=== PATIENT | male | born 1935 | race Caucasian/White ===

== ENCOUNTER 2024-03-07 06:34 | Outpatient (REF) | payer MEDICARE, SELFPAY ==
[2024-03-07 06:39] LABS: MANUAL DIFF FLAG NO
--- OUTSIDE RECORDS SUMMARY | 2024-03-07 06:42 | XMS_ITS | Encounter Summary ---
Author Name [facility] Organization [facility] Address [address] [place] [id number] Care Team Providers Care Machine I Cutter Name Role Phone RAMONA HUNTER Primary Care Provider Unav ailable FABI BLEDSOE Unavailable Unavailable DON DIAZ Unavailable Unavailable CHAPUT, JOSHUA Unavailable Unavailable RAIVEL, KATIANA Unavailable Unavailable FEILEN, AYAKA Unavailable Unavailable ÁNGEL, SAUL Unavailable Unavailable FRANK PIZANO Unavailable Unavailable Insurance Providers: All historical and current Section Date Range: From patient's date of to the date document was created. This section includes the names of all active insurance providers for the patient. Insurance Provider Type of Coverage Plan Name Start of Policy Coverage End of Policy Coverage Group Number Member ID Insurance Provider's Telephone Number Policy Solano's Name Patient's Relationship to Policy Solano MEDICARE (WNR) MEDICARE () PART B Feb 27, 2017 PART B [id number] REJI,GUSTAVO NRY PATIENT MEDICARE (WNR) MEDICARE (M) PART B Feb 27, 2017 PART B [id number] REJI,GUSTAVO NRY PATIENT MEDICARE (WNR) MEDICARE () PART A Feb 27, 2001 PART A [id number] REJI,GUSTAVO NRY PATIENT MEDICARE (WNR) MEDICARE (M) PART A Feb 27, 2001 PART A [id number] GUSTAVO MENDOZA PATIENT Selected Encounter This section includes the information on record at [place] for the Encounter. Date/Time Encounter Type Encounter Description Reason Provider Source Oct 04, 2023 04:15 PM FUNDUS PHOTOGRAPHY W/I&R OPTOMETRY ICD-10-CM H54.62 Unqualified visual loss, left eye, normal vision right eye DIAZ VALDEZ IHE Encounter Template Text not used by [facility] Assessments - Encounter Diagnoses This section includes the primary and secondary diagnoses documented for the Encounter. Date/Time Primary/Secondary Diagnosis Diagnosis Name Provider Source Dec 06, 2023 09:27 AM PRIMARY Unqualified visual loss, left eye, normal vision right eye ADALID VALDEZ [facility] Plan of Treatment: Future Appointments (+ 6 months) and Future Tests (+/- 45 days) The Plan of Treatment section includes future care activities for the patient from all [place] treatmentfacilities. This section includes future appointments and future orders which are active, pending or scheduled. Future Appointments This section includes appointments that were scheduled to occur 6 months from the date of the Encounter, up to a maximum of 20 appointments. The data comes from all [place] treatment facilities. Appointment Date/Time Appointment Type Appointme nt Facility Name Nov 28, 2023 08:00 AM AMBULATORY - MEDICINE [facility] Dec 08, 2023 08:00 AM AMBULATORY - MEDICINE [facility] Dec 08, 2023 03:00 PM AMBULATORY - REHAB MEDICIN E [facility] Jan 11, 2024 11:25 AM AMBULATORY - MEDICINE [facility] Vital Signs: All taken on the encounter date This section contains inpatient and outpatient Vital Signs collected on the date of the Encounter. Date/Time Temperature Pulse Blood Pressure Respiratory Rate SP02 Pain Height Weight Body Mass Index Source Oct 04, 2023 02:53 PM 97.2 81 124/78 16 98 0 184.5 25 [facility] Social History: Smoking Status (Most current) and Tobacco Use (All prior to encounter date) This section includes the most current, and the historical, smoking and tobacco- related health factors from the [facility] facility where the Encounter took place. Current Smoking Status This section includes the most current smoking, or tobacco-related health factor, from the [place] facility where the Encounter took place. Date/Time Current Smoking Status Comment Frederick varenr Dec 14, 2022 12:15 PM VA-TOBACCO NEVER USED [facility] Tobacco Use History This section includes a history of the smoking, or tobacco-related health factors, that were collected on or before the date of the Encounter. The data comes from the [place] facility where the Encounter took place. Date/Time Smoking Status/Tobacco Use Comment F acility Jan 10, 2019 10:51 AM VA-TOBACCO NEVER USED [facility] Advance Directives: All historical and current Section Date Range: From patient's date of to the date document was created. This section includes ALL of a patient's completed or amended [place] Advance and Rescinded Directives. The entries below indicate that a directive exists for the patient, but an actual copy is not included with this document. The data comes from all [place] facilities. Date Advance Directives Provider Source Aug 14, 2020 ADVANCE DIRECTIVE CRISTOPHER BENITEZ Encounter Notes: All associated encounter notes This section contains the clinical notes associated to the Encounter. Date/Time Encounter Note(s) Provider Source Oct 04, 2023 04:05 PM OPTOMETRY CONSULT: LOCAL TITLE: CONSULT REPORT/OPTOMETRY FUNDUS PHOTO STANDARD TITLE: OPTOMETRY CONSULT DATE OF NOTE: OCT 04, 2023@16:05 ENTRY DATE: OCT 04, 2023@16:05:42 AUTHOR: NICOLE BAPTISTE COSIGNER: ADALID VALDEZ URGENCY: STATUS: COMPLETED Fundus photo report: Fundus photos reviewed for patient with unspecified vision loss OS OD: optic disc shows normal cupping with distinct margins and healthy rim tissue. The vasculature is of normal caliber. Few drusen at macula. OS: optic disc shows normal cupping with distinct margins and healthy rim tissue. The vasculature is of normal caliber. Few drusen at macula. A/P: Unspecified vision loss OS - no ocular pathology observed on today's exam - Pt and ed on today's findings. Blurry vision likely d/t uncorrected refractive error and dryness. Pt has dementia and was unable to provide reliable responses on refraction. No change in rx OD, rx'd retinoscopy findings OS and ordered updated pair of trifocals. Advised to continue use of ATs 2-3x per day. - Fundus photos taken for documentation. Monitor in 6 mos. /lalo/ NICOLE BAPTISTE OPTOMETRY STUDENT Signed: 10/04/2023 16:53 /lalo/ ADALID VALDEZ OD STAFF CVIR TECH Cosigned: 10/04/2023 16:54 NICOLE BAPTISTE [place] [facility]
--- OUTSIDE RECORDS SUMMARY | 2024-03-07 06:42 | XMS_ITS ---
Author Name [facility] [place] [facility] [place] Address [address] [place] [address] Care Team Providers Care Filler Shredder Helper Name Role Phone RAMONA HUNTER Primary Care Provider Unav ailable LADI, FABI Unavailable Unavailable JOE, DON Unavailable Unavailable CHAPUT, JOSHUA Unavailable Unavailable RAIVEL, KATIANA Unavailable Unavailable FEILEN, AYAKA Unavailable Unavailable SAUL NEAL Unavailable Unavailable FRANK PIZANO Unavailable Unavailable Insurance [...] Relationship to Policy Solano MEDICARE (WNR) MEDICARE (M) PART B Feb 27, 2017 PART B [id number] [phone] REJI,GUSTAVO NRY PATIENT MEDICARE (WNR) MEDICARE (M) PART B Feb 27, 2017 PART B [id number] REJI,GUSTAVO NRY PATIENT MEDICARE (WNR) MEDICARE (M) PART A Feb 27, 2001 PART A [id number] WILGUS,HE NRY PATIENT MEDICARE (WNR) MEDICARE (M) PART A Feb 27, 2001 PART A [id number] GUSTAVO MENDOZA PATIENT Selected Encounter This section includes the information on record at [place] for the Encounter. Date/Time Encounter Type Encounter Description Reason Pro vider Source Nov 29, 2023 11:30 AM Outpatient Encounter [facility] PHYSIC EXTND(PIPE COVERING MOLDER,HAND MOUNTER,PA) IHE Encounter Template Text not used by [place] Plan of Treatment: Future Appointments (+ 6 months) and Future Tests (+/- 45 days) The Plan of Treatment section includes future care activities for the patient from all [place] [facility]. This section includes future appointments and future orders which are active, pending or scheduled. Future Appointments This section includes appointments that were scheduled to occur 6 months from the date of the Encounter, up to a maximum of 20 appointments. The data comes from all [facility]. Appointment Date/Time Appointment Type Appointme nt Facility Name Dec 08, 2023 08:00 AM AMBULATORY - MEDICINE [facility] Dec 08, 2023 03:00 PM [facility] Jan 11, 2024 11:25 AM AMBULATORY - MEDICINE [facility] Apr 24, 2024 03:00 PM [facility] May 15, 2024 01:30 PM AMBULATORY - MEDICINE [facility] Active, Pending, and Scheduled Orders This section includes a listing of several types of active, pending, and scheduled orders, including clinic medications orders, diagnostic test orders, procedure orders and consult orders; where the start date of the order is 45 days before the date of the Encounter or 45 days after the date of theEncounter. The data comes from all [facility]. Test Date/Time Test Type Test Details Facility Name Dec 21, 2023 12:00 AM Laboratory - Chemi stry Order BASIC METABOLIC PANEL (non-fasting) BLOOD (SST-SERUM) [facility] Social History: Smoking Status (Most current) and Tobacco Use (All prior to encounter date) This section includes the most current, and the historical, smoking and tobacco- related health factors from the [place] facility where the Encounter took place. Current Smoking Status This section includes the most current smoking, or tobacco-related health factor, from the [place] facility where the Encounter took place. Date/Time Current Smoking Status Comment Frederick varner Dec 14, 2022 12:15 PM VA-TOBACCO NEVER USED [facility] Tobacco Use History This section includes a history of the smoking, or tobacco-related health factors, that were collected on or before the date of the Encounter. The data comes from the [place] facility where the Encounter took place. Date/Time Smoking Status/Tobacco Use Comment [facility]ility Jan 10, 2019 10:51 AM VA-TOBACCO NEVER USED [facility] Advance Directives: All historical and current Section Date Range: From patient's date of to the date document was created. This section includes ALL of a patient's completed or amended [place] Advance and Rescinded Directives. The entries below indicate that a directive exists for the patient, but an actual copy is not included with this document. The data comes from all [place] facilities. Date Advance Directives Provider Source Aug 14, 2020 ADVANCE DIRECTIVE CRISTOPHER BENITEZ Encounter Notes: All associated encounter notes This section contains the clinical notes associated to the Encounter. Date/Time Encounter Note(s) Provider Source Nov 29, 2023 11:30 AM ADMINISTRATIVE NOT E: LOCAL TITLE: FAX/MAIL RECEIVED STANDARD TITLE: ADMINISTRATIVE NOTE DATE OF NOTE: NOV 29, 2023@11:30 ENTRY DATE: NOV 29, 2023@11:30:04 AUTHOR: JOSHUA MOREJON COSIGNER: URGENCY: STATUS: COMPLETED Document Received On: Nov Document Type: OFFICE NOTE Date of Service: Aug Facility and or Provider: [facility] Contact Information: PCP of Record: RAMONA HUNTER Next visit with PCP: 12/08/2023 15:00 CWM NO AUDIO EVAL E 05/15/2024 13:30 CWM/NO/OTOLARYNGOLOGY 05/15/2024 14:30 NHM/OPTOMETRY/[facility] May keep copies of this document for up to 14 days and send the original for scanning. /lalo/ JOSHUA MOREJON CHIEF OPERATIONS OFFICER DEONNA/GIOVANNY Signed: 11/29/2023 11:33 Receipt Acknowledged By: 11/29/2023 15:24 /lalo/ JODI SUTTON RN GIOVANNY framing manager 11/29/2023 11:42 /es/ RAMONA HUNTER RN,MSN,CONTAINER REPAIRER-C [facility] NURSE PRACTITIONER JOSHUA MOREJON [facility]
--- OUTSIDE RECORDS SUMMARY | 2024-03-07 06:42 | XMS_ITS ---
Author Name [facility] Address [address] [place] [id number] Care Team Providers Care Food Service Sales Representatives Name Role Phone RAMONA HUNTER Primary Care Provider Unav ailable FABI BLEDSOE Unavailable Unavailable DON DIAZ Unavailable Unavailable CHAPUT, JOSHUA Unavailable Unavailable RAIVEL, KATIANA Unavailable Unavailable FEILEN, AYAKA Unavailable Unavailable ÁNGEL, SAUL Unavailable Unavailable HARINDER, FRANK Unavailable Unavailable Insurance Providers: All historical and [...] PART B Feb 27, 2017 PART B [id number] WILGUS,HE NRY PATIENT MEDICARE (WNR) MEDICARE (M) PART B Feb 27, 2017 PART B [id number] WILGUS,HE NRY PATIENT MEDICARE (WNR) MEDICARE (M) PART A Feb 27, 2001 PART A [id number] [phone] WILGUS,HE NRY PATIENT MEDICARE (WNR) MEDICARE (M) PART A Feb 27, 2001 PART A [id number] [phone] WILGUS,HE NRY PATIENT Selected Encounter This section includes the information on record at [place] for the Encounter. Date/Time Encounter Type Encounter Description Reason Provider Source Oct 04, 2023 02:00 PM HEARING AID FITTING/CHECKING AUDIOLOGY ICD-10-CM H61.21 Impacted cerumen, right ear NAZ SMITH Yg Encounter Template Text not used by [place] Assessments - Encounter Diagnoses This section includes the primary and secondary diagnoses documented for the Encounter. Date/Time Primary/Secondary Diagnosis Diagnosis Name Provider Source Oct 04, 2023 05:01 PM PRIMARY Impacted cerumen, right ear NAZ SMITH [facility] Oct 04, 2023 05:01 PM SECONDARY Encounter for fitting and adjustment of hearing aid NAZ SMITH [facility] Plan of Treatment: Future Appointments (+ 6 months) and Future Tests (+/- 45 days) The Plan of Treatment section includes future care activities for the patient from all [place] treatmentfacilities. This section includes future appointments and future orders which are active, pending or scheduled. Future Appointments This section includes appointments that were scheduled to occur 6 months from the date of the Encounter, up to a maximum of 20 appointments. The data comes from all [place] treatment facilities. Appointment Date/Time Appointment Type Appointme nt Facility Name Nov 28, 2023 08:00 AM AMBULATORY - MEDICINE [facility] Dec 08, 2023 08:00 AM AM[facility]ULATORY - MEDICINE [facility] Dec 08, 2023 03:00 PM AMBULATORY - REHAB MEDICIN E [facility] Jan 11, 2024 11:25 AM AMBULATORY - MEDICINE [facility] Vital Signs: All taken on the encounter date This section contains inpatient and outpatient Vital Signs collected on the date of the Encounter. Date/Time Temperature Pulse Blood Pressure Respiratory Rate SP02 Pain Height Weight Body Mass Index Source Oct 04, 2023 02:53 PM 97.2 81 124/78 16 98 0 184.5 25 [facility] Social History: Smoking Status (Most current) and Tobacco Use (All prior to encounter date) This section includes the most current, and the historical, smoking and tobacco- related health factors from the [place] facility where the Encounter took place. Current Smoking Status This section includes the most current smoking, or tobacco-related health factor, from the [place] facility where the Encounter took place. Date/Time Current Smoking Status Comment Facil ity Dec 14, 2022 12:15 PM VA-TOBACCO NEVER USED [facility] Tobacco Use History This section includes a history of the smoking, or tobacco-related health factors, that were collected on or before the date of the Encounter. The data comes from the [place] facility where the Encounter took place. Date/Time Smoking Status/Tobacco Use Comment F acility Jan 10, 2019 10:51 AM VA-TOBACCO NEVER USED [facility] Advance Directives: All historical and current Section Date Range: From patient's date of to the date document was created. This section includes ALL of a patient's completed or amended [place] Advance and Rescinded Directives. The entries below indicate that a directive exists for the patient, but an actual copy is not included with this document. The data comes from all [place] facilities. Date Advance Directives Provider Source Aug 14, 2020 ADVANCE DIRECTIVE CRISTOPHER BENITEZ Encounter Notes: All associated encounter notes This section contains the clinical notes associated to the Encounter. Date/Time Encounter Note(s) Provider Source Oct 04, 2023 07:32 AM AUDIOLOGY E & M NOTE: LOCAL TITLE: AUDIOLOGY CLINIC STANDARD TITLE: AUDIOLOGY E & M NOTE DATE OF NOTE: OCT 04, 2023@07:32 ENTRY DATE: OCT 04, 2023@07:32:52 AUTHOR: NAZ SMITH COSIGNER: URGENCY: STATUS: COMPLETED AUDIOLOGY CLINIC Has ADDENDA Dx CODE: H61.21-Impacted cerumen, right ear APPOINTMENT TYPE: Hearing Re-Evaluation and Hearing Aid Selection BACKGROUND/HISTORY: Ramses was seen 10/04/23 for a hearing re-evaluation and hearing aid selection appointment, accompanied by his caregiver Lakshmi who assists with case history. Ramses has a same day ENT appointment because a growth was visualized in his right ear. They have been using drops for several days now. Lakshmi reports ramses recently has been in and out of the hospital and had COVID. His last hearing evaluation was a C&P on 05/23/23. 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 He was fit with Ken Ajay Edge AI BTEs on 08/24/20. He is eligible for new [facility] aids through [facility] due to the age of the current devices. ASSESMENT: Results of today's testing are as follows: Otoscopy revealed occluding yellowish debris in the right ear, and partially occluding cerumen in the left ear. Could not visualize TMs. Flat type B tympanograms obtained bilaterally. Further testing was still completed as is scheduled to see ENT later today. 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 *Could not mask or complete word testing due to comprehension limitations. CLINICAL IMPRESSIONS: No significant changes were found in the right ear when compared to the 05/23/23 audiological evaluation. A significant decrease in the left ear noted today. Recommending follow up with ENT as previously scheduled and return for a same day hearing test and fitting once cleared. HEARING AID CHECK: Both hearing aids were cleaned and checked, and found to be in good working order. Microphone covers and thin tubes were replaced. Hearing aids were connected to Nexgence and a firmware update was completed. HEARING AID SELECTION: Different hearing aid options were discussed with Lakshmi. Agreed to order hearing aids similar as possible to 's current aids. Ken Evolv AI 13 BTEs were selected and ordered in ROES. Impressions on file will be used for canal lock earmolds due to impacted cerumen. EDUCATION/COUNSELING: The patient was counseled re: today's hearing test results. He demonstrated satisfactory understanding of the education and plan, and was given the opportunity to ask questions throughout today's visit. PLAN: 1. When new hearing aids arrive, can be scheduled for a 2 hour retest/fit appointment. 2. Hearing re-evaluation in 3-5 years, or sooner if change in hearing occurs. * Patient Education Education provided on the following topics: Hearing test results Education provided to: P Response to Education: VU Aguilar Patient P Family F Significant Other SO Verbalizes Understanding VU Returns Demonstration RD Performs Independently PI Lacks Comprehension LC Refused Education RE Not Applicable NA * /lalo/ NAZ SMITH STAFF ELECTRICAL CONTACTS ADJUSTER Signed: 10/05/2023 07:49 10/19/2023 ADDENDUM STATUS: COMPLETED Hearing aids received and certified, left voicemail for [place] to contact the clinic. Need to schedule 2 hour retest/fit appointment. Hearing aids placed in black cabinet. /lalo/ FRANK LAWRENCE Audiology Health Rack Worker Signed: 10/19/2023 08:16 11/02/2023 ADDENDUM STATUS: COMPLETED called to schedule a 2 hour appt. lft with direct clinic mary ann number /lalo/ FABI MONTGOMERY LEAD SOLE SKIVER Signed: 11/02/2023 11:29 NAZ SMITH [facility]
--- OUTSIDE RECORDS SUMMARY | 2024-03-07 06:42 | XMS_ITS | Encounter Summary ---
Author Name [facility] Address [address] [place] [id number] Care Team Providers Care Client Resolution Specialist Name Role Phone SARAY HUNTER Primary Care Provider Unav ailable LADI, FABI Unavailable Unavailable DON DIAZ Unavailable Unavailable CHAPUT, [...] PART B Feb 27, 2017 PART B [id number] WILGUS,HE NRY PATIENT MEDICARE (WNR) MEDICARE (M) PART B Feb 27, 2017 PART B [id number] WILGUS,HE NRY PATIENT MEDICARE (WNR) MEDICARE (M) PART A Feb 27, 2001 PART A [id number] WILGUS,HE NRY PATIENT MEDICARE (WNR) MEDICARE (M) PART A Feb 27, 2001 PART A [id number] [phone] WILGUS,HE NRY PATIENT Selected Encounter This section includes the information on record at [place] for the Encounter. Date/Time Encounter Type Encounter Description Reason Provider Source Oct 05, 2023 10:06 AM FIT SPECTACLES BIFOCAL OPTOMETRY ICD-10-CM Z46.0 Encounter for fit/adjst of spectacles and contact lenses ADALID VALDEZ IHYg Encounter Template Text not used by [facility] Assessments - Encounter Diagnoses This section includes the primary and secondary diagnoses documented for the Encounter. Date/Time Primary/Secondary Diagnosis Diagnosis Name Provider Source Oct 05, 2023 10:06 AM PRIMARY Encounter for fit/adjst of spectacles and contact lenses SARAY DHALIWAL [facility] Plan of Treatment: Future Appointments (+ 6 months) and Future Tests (+/- 45 days) The Plan of Treatment section includes future care activities for the patient from all [place] treatmentfacilities. This section includes future appointments and future orders which are active, pending or scheduled. Future Appointments This section includes appointments that were scheduled to occur 6 months from the date of the Encounter, up to a maximum of 20 appointments. The data comes from all [place] treatment facilities. Appointment Date/Time Appointment Type Appointme nt Facility Name Nov 28, 2023 08:00 AM AMBULATORY - MEDICINE [facility] Dec 08, 2023 08:00 AM AMBULATORY - MEDICINE [facility] Dec 08, 2023 03:00 PM AMBULATORY - REHAB MEDICIN E [facility] Jan 11, 2024 11:25 AM AMBULATORY - MEDICINE [facility] Social History: Smoking Status (Most current) and Tobacco Use (All prior to encounter date) This section includes the most current, and the historical, smoking and tobacco- related health factors from the [place] facility where the Encounter took place. Current Smoking Status This section includes the most current smoking, or tobacco-related health factor, from the [place] facility where the Encounter took place. Date/Time Current Smoking Status Phill Frederick telly Dec 14, 2022 12:15 PM VA-TOBACCO NEVER USED [facility] Tobacco Use History This section includes a history of the smoking, or tobacco-related health factors, that were collected on or before the date of the Encounter. The data comes from the [place] facility where the Encounter took place. Date/Time Smoking Status/Tobacco Use Comment [facility] Jan 10, 2019 10:51 AM VA-TOBACCO NEVER USED [place] [facility] Advance Directives: All historical and current Section Date Range: From patient's date of to the date document was created. This section includes ALL of a patient's completed or amended [place] Advance and Rescinded Directives. The entries below indicate that a directive exists for the patient, but an actual copy is not included with this document. The data comes from all [place] facilities. Date Advance Directives Provider Source Aug 14, 2020 ADVANCE DIRECTIVE ELICRISTOPHERPATRICIA MORGAN LD Encounter Notes: All associated encounter notes This section contains the clinical notes associated to the Encounter. Date/Time Encounter Note(s) Provider Source Oct 05, 2023 10:06 AM OPTOMETRY NOTE: LOCAL TITLE: OPTOMETRY NOTE STANDARD TITLE: OPTOMETRY NOTE DATE OF NOTE: OCT 05, 2023@10:06 ENTRY DATE: OCT 05, 2023@10:06:12 AUTHOR: ANNABEL PERDOMO EXP COSIGNER: URGENCY: STATUS: COMPLETED OPTOMETRY NOTE Has ADDENDA The quote provided below is for informational purposes only. Please verify prior to the creation of a purchase order. DILIA MENDOZA 1145 RX INFORMATION OD +0.75 -1.25 X115 Add:+2.75 Pzm:0.00 Dir: Prz2:0.00 Dir2: OS -0.50 -1.75 X60 Add:+2.75 Pzm:0.00 Dir: Prz2:0.00 Dir2: FITTING INFORMATION FPD:64 NPD:61 [place]:R: L: SEG HT:R:24 L:24 Tint:None Shade:None VA Billable Items FRAME: PALM GOLD [id number] Right Lens: POLY TRIFOCAL 7X28 PHOTOCHROMIC KHAN 1.586 POLY Left Lens: POLY TRIFOCAL 7X28 PHOTOCHROMIC KHAN 1.586 [place] /lalo/ ANNABEL PERDOMO INSURANCE SALES PROFESSIONAL Signed: 10/05/2023 10:06 Receipt Acknowledged By: 10/05/2023 10:22 /lalo/ Saray Dhaliwal [facility] Specialist 10/05/2023 ADDENDUM STATUS: COMPLETED PDS [employer] Farmworker fit 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 OPT HT entered consult(s) as requested for provider signature. /lalo/ Saray Dhaliwal [facility] Specialist Signed: 10/05/2023 10:23 ANNABEL PERDOMO [facility]
--- OUTSIDE RECORDS SUMMARY | 2024-03-07 06:42 | XMS_ITS | Encounter Summary ---
Author Name [facility] [place] Organization [facility] [place] Address [address] [place] [id number] Care Team Providers Care Director Of Early Childhood Name Role Phone RAMONA HUNTER Primary Care [...] PART B Feb 27, 2017 PART B [id number] REJI,GUSTAVO NRY PATIENT MEDICARE (WNR) MEDICARE (M) PART B Feb 27, 2017 PART B [id number] GUSTAVO MENDOZA NRY PATIENT MEDICARE (WNR) MEDICARE () PART A Feb 27, 2001 PART A [id number] REJI,GUSTAVO NRY PATIENT MEDICARE (WNR) MEDICARE (M) PART A Feb 27, 2001 PART A [id number] GUSTAVO MENDOZA PATIENT Selected Encounter This section includes the information on record at [place] for the Encounter. Date/Time Encounter Type Encounter Description Reason Provider Source Nov 28, 2023 04:15 PM PRO PHONE CALL 5-10 MIN TELEPHONE [facility] ICD-10-CM I48.91 Unspecified atrial fibrillation DAVID AugustineJODI Yg Encounter Template Text not used by [place] Assessments - Encounter Diagnoses This section includes the primary and secondary diagnoses documented for the Encounter. Date/Time Primary/Secondary Diagnosis Diagnosis Name Provider Source Nov 28, 2023 04:15 PM PRIMARY Unspecified atrial fibrillation JODI ZELAYA [facility] Plan of Treatment: Future Appointments (+ 6 months) and Future Tests (+/- 45 days) The Plan of Treatment section includes future care activities for the patient from all [place] treatmentfacilities. This section includes future appointments and future orders which are active, pending or scheduled. Future Appointments This section includes appointments that were scheduled to occur 6 months from the date of the Encounter, up to a maximum of 20 appointments. The data comes from all [place] treatment [facility]. Appointment Date/Time Appointment Type Appointme nt Facility Name Dec 08, 2023 08:00 AM AMBULATORY - MEDICINE [facility] Dec 08, 2023 03:00 PM AMBULATORY - REHAB MEDICIN E [facility] Jan 11, 2024 11:25 AM [facility] Apr 24, 2024 03:00 PM [facility] May 15, 2024 01:30 PM AMBULATORY - MEDICINE [facility] Active, Pending, and Scheduled Orders This section includes a listing of several types of active, pending, and scheduled orders, including clinic medications orders, diagnostic test orders, procedure orders and consult orders; where the start date of the order is 45 days before the date of the Encounter or 45 days after the date of theEncounter. The data comes from all [facility]. Test Date/Time Test Type Test Details Facility Name Dec 21, 2023 12:00 AM Laboratory - Chemi stry Order BASIC METABOLIC PANEL (non-fasting) BLOOD (SST-SERUM) SP [facility] Social History: Smoking Status (Most current) and Tobacco Use (All prior to encounter date) This section includes the most current, and the historical, smoking and tobacco- related health factors from the [place] facility where the Encounter took place. Current Smoking Status This section includes the most current smoking, or tobacco-related health factor, from the [place] facility where the Encounter took place. Date/Time Current Smoking Status Comment Frederick ity Dec 14, 2022 12:15 PM VA-TOBACCO NEVER USED [facility] Tobacco Use History This section includes a history of the smoking, or tobacco-related health factors, that were collected on or before the date of the Encounter. The data comes from the [place] facility where the Encounter took place. Date/Time Smoking Status/Tobacco Use Comment F acility Jan 10, 2019 10:51 AM VA-TOBACCO NEVER USED [facility] Advance Directives: All historical and current Section Date Range: From patient's date of to the date document was created. This section includes ALL of a patient's completed or amended [place] Advance and Rescinded Directives. The entries below indicate that a directive exists for the patient, but an actual copy is not included with this document. The data comes from all [place] facilities. Date Advance Directives Provider Source Aug 14, 2020 ADVANCE DIRECTIVE CRISTOPHER BENITEZ Encounter Notes: All associated encounter notes This section contains the clinical notes associated to the Encounter. Date/Time Encounter Note(s) Provider Source Nov 28, 2023 04:16 PM [facility] NOTE: LOCAL TITLE: HB TELEPHONE NOTE STANDARD TITLE: HB NOTE DATE OF NOTE: NOV 28, 2023@16:16 ENTRY DATE: NOV 28, 2023@16:16:32 AUTHOR: RAÚL SUTTON COSIGNER: URGENCY: STATUS: COMPLETED Duration of call: 5 min Called received and spoke with ANDREA Lakshmi who reported [place] was taken off Digoxin about a week ago. Cardiology did an EKG which was reported to be WNL per caregiver. will be placed on heart monitor for two weeks and has follow up with cardiology again in December. Per Caregiver [place] is doing better now that he is off of Digoxin . Cardiology visit summary requested. Requesting renewal of the following if appropriate. OUTPT ZINC OXIDE 20% OINT (Status = Active) APPLY THIN LAYER TOPICALLY ONCE DAILY NEEDED FOR SKIN IRRITATION Rx# [id number] Last Released: 11/16/23 Qty/Days Supply: 454/30 Rx Expiration Date: 10/03/24 Refills Remainin Indication: FOR SKIN IRRITATION /es/ JODI SUTTON RN HB speech pathologist Signed: 11/28/2023 16:32 Receipt Acknowledged By: 11/29/2023 08:50 /lalo/ RAMONA HUNTER RN,MSN,SWEDGER-C [facility] NURSE PRACTITIONER RAÚL SUTTON [facility]
--- OUTSIDE RECORDS SUMMARY | 2024-03-07 06:42 | XMS_ITS | Encounter Summary ---
Author Name [facility] [place] [place] Organization [facility] [place] [place] Address [address] [place] [id number] Care Team Providers Care Colors Custodian Name Role Phone RAMONA HUNTER Primary Care Provider Unav ailable FABI BLEDSOE Unavailable Unavailable DON DIAZ Unavailable Unavailable CHAPUT, JOSHUA Unavailable Unavailable RARADHAL, KATIANA Unavailable Unavailable FEILEN, AYAKA Unavailable Unavailable [...] PART B Feb 27, 2017 PART B [id number] ARONGUS,GUSTAVO NRY PATIENT MEDICARE (WNR) MEDICARE (M) PART B Feb 27, 2017 PART B [id number] WILGUS,GUSTAVO NRY PATIENT MEDICARE (WNR) MEDICARE (M) PART A Feb 27, 2001 PART A [id number] WILGUS,HE NRY PATIENT MEDICARE (WNR) MEDICARE (M) PART A Feb 27, 2001 PART A [id number] [phone] WILGUS,HE NRY PATIENT Selected Encounter This section includes the information on record at [place] for the Encounter. Date/Time Encounter Type Encounter Description Reason Provider Source Nov 01, 2023 11:45 AM MEASURE BLOOD OXYGEN LEVEL [facility] Nursing (RN / LP) ICD-10-CM G30.9 Alzheimer's disease, unspecified JODI SUTTON Yg Encounter Template Text not used by [place] Assessments - Encounter Diagnoses This section includes the primary and secondary diagnoses documented for the Encounter. Date/Time Primary/Secondary Diagnosis Diagnosis Name Provider Source Nov 06, 2023 04:53 PM PRIMARY Alzheimer's disease, unspecified JODI ZELAYA [facility] [place] [facility] Nov 06, 2023 04:53 PM SECONDARY Dem in oth dis classd elswhr,unsp sev,w/o beh/psych/mood/an[facility] [place] [facility] Nov 06, 2023 04:53 PM SECONDARY Hypertensive heart disease without heart failure [facility] [place] [facility] Nov 06, 2023 04:53 PM SECONDARY Unspecified atrial fibrillation [facility] [place] [facility] Plan of Treatment: Future Appointments (+ 6 months) and Future Tests (+/- 45 days) The Plan of Treatment section includes future care activities for the patient from all [place] treatmentfacilities. This section includes future appointments and future orders which are active, pending or scheduled. Future Appointments This section includes appointments that were scheduled to occur 6 months from the date of the Encounter, up to a maximum of 20 appointments. The data comes from all [place] treatment facilities. Appointment Date/Time Appointment Type Appointme nt Facility Name Nov 28, 2023 08:00 AM AMBULATORY - MEDICINE [facility] [place] [facility] Dec 08, 2023 08:00 AM AMBULATORY - MEDICINE [facility] Dec 08, 2023 03:00 PM [facility] [place] [facility] Jan 11, 2024 11:25 AM AMBULATORY - MEDICINE [facility] [place] [facility] Apr 24, 2024 03:00 PM [facility] Vital Signs: All taken on the encounter date This section contains inpatient and outpatient Vital Signs collected on the date of the Encounter. Date/Time Temperature Pulse Blood Pressure Respiratory Rate SP02 Pain Height Weight Body Mass Index Source Nov 01, 2023 11:45 AM 74 136/73 0 [facility] Social History: Smoking Status (Most current) and Tobacco Use (All prior to encounter date) This section includes the most current, and the historical, smoking and tobacco- related health factors from the [place] facility where the Encounter took place. Current Smoking Status This section includes the most current smoking, or tobacco-related health factor, from the [place] facility where the Encounter took place. Date/Time Current Smoking Status Comment Facil ity Dec 14, 2022 12:15 PM VA-TOBACCO NEVER USED [facility] Tobacco Use History This section includes a history of the smoking, or tobacco-related health factors, that were collected on or before the date of the Encounter. The data comes from the [place] facility where the Encounter took place. Date/Time Smoking Status/Tobacco Use Comment F acility Jan 10, 2019 10:51 AM VA-TOBACCO NEVER USED [facility] Advance Directives: All historical and current Section Date Range: From patient's date of to the date document was created. This section includes ALL of a patient's completed or amended [place] Advance and Rescinded Directives. The entries below indicate that a directive exists for the patient, but an actual copy is not included with this document. The data comes from all [place] facilities. Date Advance Directives Provider Source Aug 14, 2020 ADVANCE DIRECTIVE CRISTOPHER BENITEZ Encounter Notes: All associated encounter notes This section contains the clinical notes associated to the Encounter. Date/Time Encounter Note(s) Provider Source Nov 06, 2023 05:14 PM ADDENDUM: LOCAL TITLE: Addendum STANDARD TITLE: ADDENDUM DATE OF NOTE: NOV 06, 2023@17:14:50 ENTRY DATE: NOV 06, 2023@17:14:51 AUTHOR: RAÚL SUTTON COSIGNER: URGENCY: STATUS: COMPLETED Vet has upcoming appointment with cardiology on 12/21 for which he needs to have BMP labs done according to last visit summary. Caregiver inquiring [facility] could obtain labs and fax to animal nutrition teacher. Adding PCP to inquire if agreeable for nurse to add order. /es/ JODI SUTTON RN [facility] bookkeeper assistant Signed: 11/06/2023 17:16 Receipt Acknowledged By: 11/07/2023 09:49 /es/ RAMONA HUNTER RN,MSN,BEVERAGE HOST-C [facility] NURSE PRACTITIONER --- Original Document --- 11/01/23 GIOVANNY RN PROGRESS NOTE: Nursing Progress Note Active and Recently Outpatient Medications (including Supplies): Active Outpatient Medications Status 1) APIXABAN 2.5MG TAB TAKE ONE TABLET BY MOUTH EVERY 12 ACTIVE HOURS FOR PREVENTION OF BLOOD CLOTS 2) BRIEF,PROTECTIVE SUPER ABS LG ATTENDS USE 1 BRIEF ACTIVE DIRECTED THREE TIMES DAILY NEEDED FOR PERSONAL CARE 3) CARBAMIDE PEROXIDE 6.5% OTIC SOLN INSTILL 5 DROPS ACTIVE INTO THE AFFECTED EAR(S) TWICE DAILY FOR EAR WAX BLOCKAGE 4) CARBOXYMETHYLCELLULOSE NA 0.5% OPH SOLN INSTILL 1 ACTIVE DROP INTO EACH EYE FOUR TIMES DAILY NEEDED FOR DRY EYE 5) CLEANSING CLOTH ATTENDS PKT USE ONE WASHCLOTH ACTIVE DIRECTED ONCE DAILY NEEDED 6) DIGOXIN 0.125MG TAB TAKE ONE TABLET BY MOUTH EVERY ACTIVE OTHER DAY 7) DOCUSATE NA 100MG CAP TAKE ONE CAPSULE BY MOUTH TWICE ACTIVE DAILY NEEDED FOR CONSTIPATION TO SOFTEN STOOL 8) GLOVE NITRILE MED PFREE NSTERILE TX USE GLOVE(S) ONCE ACTIVE DAILY NEEDED 9) INCONT LINER DEPEND GUARDS USE 1 PAD TOPICALLY TWICE ACTIVE DAILY NEEDED 10) MICONAZOLE NITRATE 2% TOP PWDR APPLY SMALL AMOUNT ACTIVE TOPICALLY TWICE DAILY NEEDED FOR FUNGAL INFECTION OF SKIN 11) MULTIVITAMIN/MINERALS CHEW TAB CHEW 1 TABLET BY MOUTH ACTIVE ONCE DAILY FOR VITAMIN SUPPLEMENTATION 12) NUTRITION SUPL ENSURE PLUS/SHIVA LIQUID DRINK 1 CAN BY ACTIVE MOUTH ONCE DAILY FOR NUTRITIONAL SUPPLEMENTATION 13) NYSTATIN 282371 UNT/GM CREAM APPLY A THIN LAYER ACTIVE TOPICALLY TWICE DAILY 14) PANTOPRAZOLE NA 40MG EC TAB TAKE ONE TABLET BY MOUTH ACTIVE TWICE DAILY FOR EXCESSIVE PRODUCTION OF STOMACH ACID 15) UNDERPAD,BED 30IN X 36IN PLASTIC BACK USE 1 PAD ACTIVE (S) TOPICALLY ONCE DAILY NEEDED FOR PERSONAL CARE 16) ZINC OXIDE 20% OINT APPLY THIN LAYER TOPICALLY ONCE ACTIVE DAILY NEEDED FOR SKIN IRRITATION Active Non-VA Medications Status 1) Non-VA DOCUSATE NA 100MG CAP 100MG BY MOUTH ONCE ACTIVE DAILY NEEDED 17 Total Medications MEDICATION REVIEW Medication review completed during home visit. The was given the opportunity to discuss and ask questions about all prescription medications as well as dietary and herbal supplements, vitamins, OTC medications, etc. Currently the is taking his/her medications as per the active orders in the electronic record. A copy of the active medication list was left in patient's home at time of visit. [place] identified by: Full Name, Address, Facial Recognition Length of visit in home: 30 min Problem addressed for this visit: Routine assessment, Chronic disease management/teaching (Alzheimer's, HTN and A fib) NURSING SUMMARY: Visit made to home for Routine assessment, Chronic disease management/teaching (Alzheimer's, HTN and A fib, and new onset stage 1. [place] alert and oriented to self only, pleasantly confuse. Caregiver shared concern about coccyx area as she believed fungal infection had not cleared. Nurse noted area to be dark and blanchable. [place] spends most of his time sitting and despite caregiver encouragements he wants to participate less and less in activities that required him to move. Nurse discussed with caregiver care for stage 1 pressure injury in coccyx. Caregiver to apply barrier cream, provide timely incontinence care, encourage turning and repositioning by using pillows to offset while sitting and most importantly trying to get off his buttocks, caregiver voiced understanding. [place] ear cleaned by ENT during visit, nurse discussed every other month maintenance irrigation. has follow up with ENT every 6 months now. No other acute findings this visit. NO falls, NO ER visits and NO hospitalizations reported. Upcoming appointments: [facility] - [facility] Visits 11/28/2023 08:00 COM CARE-SKILLED HHC 12/22/2023 CC Cardiology 05/15/2024 14:30 NHM/OPTOMETRY/BORASKI 05/15/2024 15:30 CWM/NO/OTOLARYNGOLOGY Blood Pressure: 136/73 (11/01/2023 11:45) Pulse: 74 (11/01/2023 11:45) Respiration: 16 (10/04/2023 14:53) Temperature: 97.2 F [36.2 C] (10/04/2023 14:53) Pain Score: 0 (11/01/2023 11:45) EXAMINATION: Lungs: clear Edema: none noted HR: 74, Denies chest pain. Bowel/Bladder: Incontinence of both. Caregiver reports regular bowel and bladder. No s/s of UTI reported. Denies constipation Skin: stage 1 pressure injury to coccyx area. Nurse provided education to VOIP NETWORK TECHNICIAN and significant other on stages of pressure injury, care and turning and repositioning to avoid worsening. Home Safety FALLS NO INFECTIONS NO ER/HOSPITALIZATIONS NO Teaching/goals: Turning and repositioning, incontinence care and pressure injury stages education Patient verbalizes understanding to above and will call with any concerns or changes in condition. For emergent care call 911. Plan for next visit: Flu vaccine administration and labs. Scheduled for 12/11/ JODI SUTTON RN [facility] bookkeeper assistant Signed: 11/06/2023 17:14 11/06/2023 ADDENDUM STATUS: COMPLETED Falls & Incontinence Screen: Falls Screen: During the past 12 months, did the patient report any falls? 1. One fall with no injury. Incontinence Screen: During the past 12 months, has the patient has any characteristics of incontinence (ability, voiding, leakage, etc.)? YES - Incontinence is a problem for this patient. Is urinary incontinence NEW for this patient? NO - Incontinence is NOT a new problem. What is the current treatment? Toileting schedule and timely incontinence care as has Alzheimer's Sexual Orientation: The patient thinks of their sexual orientation as: Straight or Heterosexual /es/ JODI SUTTON RN [facility] bookkeeper assistant Signed: 11/06/2023 17:20 [facility] [place] [facility] Nov 01, 2023 11:45 AM [facility] NURSING NOTE: LOCAL TITLE: HB RN PROGRESS NOTE STANDARD TITLE: [facility] NURSING NOTE DATE OF NOTE: NOV 01, 2023@11:45 ENTRY DATE: NOV 06, 2023@16:53:24 AUTHOR: RAÚL SUTTON COSIGNER: URGENCY: STATUS: COMPLETED HB RN PROGRESS NOTE Has ADDENDA Nursing Progress Note Active and Recently Outpatient Medications (including Supplies): Active Outpatient Medications Status 1) APIXABAN 2.5MG TAB TAKE ONE TABLET BY MOUTH EVERY 12 ACTIVE HOURS FOR PREVENTION OF BLOOD CLOTS 2) BRIEF,PROTECTIVE SUPER ABS LG ATTENDS USE 1 BRIEF ACTIVE DIRECTED THREE TIMES DAILY NEEDED FOR PERSONAL CARE 3) CARBAMIDE PEROXIDE 6.5% OTIC SOLN INSTILL 5 DROPS ACTIVE INTO THE AFFECTED EAR(S) TWICE DAILY FOR EAR WAX BLOCKAGE 4) CARBOXYMETHYLCELLULOSE NA 0.5% OPH SOLN INSTILL 1 ACTIVE DROP INTO EACH EYE FOUR TIMES DAILY NEEDED FOR DRY EYE 5) CLEANSING CLOTH ATTENDS PKT USE ONE WASHCLOTH ACTIVE DIRECTED ONCE DAILY NEEDED 6) DIGOXIN 0.125MG TAB TAKE ONE TABLET BY MOUTH EVERY ACTIVE OTHER DAY 7) DOCUSATE NA 100MG CAP TAKE ONE CAPSULE BY MOUTH TWICE ACTIVE DAILY NEEDED FOR CONSTIPATION TO SOFTEN STOOL 8) GLOVE NITRILE MED PFREE NSTERILE TX USE GLOVE(S) ONCE ACTIVE DAILY NEEDED 9) INCONT LINER DEPEND GUARDS USE 1 PAD TOPICALLY TWICE ACTIVE DAILY NEEDED 10) MICONAZOLE NITRATE 2% TOP PWDR APPLY SMALL AMOUNT ACTIVE TOPICALLY TWICE DAILY NEEDED FOR FUNGAL INFECTION OF SKIN 11) MULTIVITAMIN/MINERALS CHEW TAB CHEW 1 TABLET BY MOUTH ACTIVE ONCE DAILY FOR VITAMIN SUPPLEMENTATION 12) NUTRITION SUPL ENSURE PLUS/SHIVA LIQUID DRINK 1 CAN BY ACTIVE MOUTH ONCE DAILY FOR NUTRITIONAL SUPPLEMENTATION 13) NYSTATIN 178795 UNT/GM CREAM APPLY A THIN LAYER ACTIVE TOPICALLY TWICE DAILY 14) PANTOPRAZOLE NA 40MG EC TAB TAKE ONE TABLET BY MOUTH ACTIVE TWICE DAILY FOR EXCESSIVE PRODUCTION OF STOMACH ACID 15) UNDERPAD,BED 30IN X 36IN PLASTIC BACK USE 1 PAD ACTIVE (S) TOPICALLY ONCE DAILY NEEDED FOR PERSONAL CARE 16) ZINC OXIDE 20% OINT APPLY THIN LAYER TOPICALLY ONCE ACTIVE DAILY NEEDED FOR SKIN IRRITATION Active Non-VA Medications Status 1) Non-VA DOCUSATE NA 100MG CAP 100MG BY MOUTH ONCE ACTIVE DAILY NEEDED 17 Total Medications MEDICATION REVIEW Medication review completed during home visit. The was given the opportunity to discuss and ask questions about all prescription medications as well as dietary and herbal supplements, vitamins, OTC medications, etc. Currently the is taking his/her medications as per the active orders in the electronic record. A copy of the active medication list was left in patient's home at time of visit. [place] identified by: Full Name, Address, Facial Recognition Length of visit in home: 30 min Problem addressed for this visit: Routine assessment, Chronic disease management/teaching (Alzheimer's, HTN and A fib) NURSING SUMMARY: Visit made to home for Routine assessment, Chronic disease management/teaching (Alzheimer's, HTN and A fib, and new onset stage 1. alert and oriented to self only, pleasantly confuse. Caregiver shared concern about coccyx area as she believed fungal infection had not cleared. Nurse noted area to be dark and blanchable. spends most of his time sitting and despite caregiver encouragements he wants to participate less and less in activities that required him to move. Nurse discussed with caregiver care for stage 1 pressure injury in coccyx. Caregiver to apply barrier cream, provide timely incontinence care, encourage turning and repositioning by using pillows to offset while sitting and most importantly trying to get off his buttocks, caregiver voiced understanding. ear cleaned by ENT during visit, nurse discussed every other month maintenance irrigation. has follow up with ENT every 6 months now. No other acute findings this visit. NO falls, NO ER visits and NO hospitalizations reported. Upcoming appointments: CVF - Fut Clinic Visits 11/28/2023 08:00 COM CARE-SKILLED HHC 12/22/2023 CC Cardiology 05/15/2024 14:30 NHM/OPTOMETRY/BORASKI 05/15/2024 15:30 CWM/NO/OTOLARYNGOLOGY Blood Pressure: 136/73 (11/01/2023 11:45) Pulse: 74 (11/01/2023 11:45) Respiration: 16 (10/04/2023 14:53) Temperature: 97.2 F [36.2 C] (10/04/2023 14:53) Pain Score: 0 (11/01/2023 11:45) EXAMINATION: Lungs: clear Edema: none noted HR: 74, Denies chest pain. Bowel/Bladder: Incontinence of both. Caregiver reports regular bowel and bladder. No s/s of UTI reported. Denies constipation Skin: stage 1 pressure injury to coccyx area. Nurse provided education to VOIP NETWORK TECHNICIAN and significant other on stages of pressure injury, care and turning and repositioning to avoid worsening. Home Safety FALLS NO INFECTIONS NO ER/HOSPITALIZATIONS NO Teaching/goals: Turning and repositioning, incontinence care and pressure injury stages education Patient verbalizes understanding to above and will call with any concerns or changes in condition. For emergent care call 911. Plan for next visit: Flu vaccine administration and labs. Scheduled for 12/11/ JODI SUTTON RN [facility] bookkeeper assistant Signed: 11/06/2023 17:14 11/06/2023 ADDENDUM STATUS: COMPLETED Vet has upcoming appointment with cardiology on 12/21 for which he needs to have BMP labs done according to last visit summary. Caregiver inquiring [facility] could obtain labs and fax to animal nutrition teacher. Adding PCP to inquire if agreeable for nurse to add order. /bettye SUTTON RN [facility] bookkeeper assistant Signed: 11/06/2023 17:16 Receipt Acknowledged By: 11/07/2023 09:49 /bettye HUNTER RN,MSN,BEVERAGE HOST-C [facility] NURSE PRACTITIONER 11/06/2023 ADDENDUM STATUS: COMPLETED Falls & Incontinence Screen: Falls Screen: During the past 12 months, did the patient report any falls? 1. One fall with no injury. Incontinence Screen: During the past 12 months, has the patient has any characteristics of incontinence (ability, voiding, leakage, etc.)? YES - Incontinence is a problem for this patient. Is urinary incontinence NEW for this patient? NO - Incontinence is NOT a new problem. What is the current treatment? Toileting schedule and timely incontinence care as has Alzheimer's Sexual Orientation: The patient thinks of their sexual orientation as: Straight or Heterosexual /bettye SUTTON RN [facility] bookkeeper assistant Signed: 11/06/2023 17:20 11/07/2023 ADDENDUM STATUS: COMPLETED labs ordered /bettye HUNTER RN,MSN,BEVERAGE HOST-C [facility] NURSE PRACTITIONER Signed: 11/07/2023 09:50 CRISTOBAL SUTTON [facility]
--- OUTSIDE RECORDS SUMMARY | 2024-03-07 06:42 | XMS_ITS ---
Author Name [facility] [place] [facility] [place] Organization [place] Address [address] [place] [id number] Care Team Providers Care Certified Pest Control Technician Name Role Phone RAMONA HUNTER Primary Care [...] PART B Feb 27, 2017 PART B [id number] WILGUS,GUSTAVO NRY PATIENT MEDICARE (WNR) MEDICARE (M) PART B Feb 27, 2017 PART B [id number] WILGUS,GUSTAVO NRY PATIENT MEDICARE (WNR) MEDICARE (M) PART A Feb 27, 2001 PART A [id number] WILGUS,HE NRY PATIENT MEDICARE (WNR) MEDICARE (M) PART A Feb 27, 2001 PART A [id number] WILGUS,HE NRY PATIENT Selected Encounter This section includes the information on record at [place] for the Encounter. Date/Time Encounter Type Encounter Description Reason Pro vider Source Oct 31, 2023 08:33 AM Outpatient Encounter TELEPHONE/GERIATRICS IHE Encounter Template Text not used by [place] Plan of Treatment: Future Appointments (+ 6 months) and Future Tests (+/- 45 days) The Plan of Treatment section includes future care activities for the patient from all [place] treatmentfacilities. This section includes future appointments and future orders which are active, pending or scheduled. Future Appointments This section includes appointments that were scheduled to occur 6 months from the date of the Encounter, up to a maximum of 20 appointments. The data comes from all [place] treatment facilities. Appointment Date/Time Appointment Type Appointme nt Facility Name Nov 28, 2023 08:00 AM [facility] Dec 08, 2023 08:00 AM AMBULATORY - MEDICINE [facility] Dec 08, 2023 03:00 PM [facility] Jan 11, 2024 11:25 AM [facility] Apr 24, 2024 03:00 PM [facility] Social History: Smoking Status (Most current) and Tobacco Use (All prior to encounter date) This section includes the most current, and the historical, smoking and tobacco- related health factors from the [place] facility where the Encounter took place. Current Smoking Status This section includes the most current smoking, or tobacco-related health factor, from the [place] facility where the Encounter took place. Date/Time Current Smoking Status Comment Frederick itubaldo Dec 14, 2022 12:15 PM [place]-TOBACCO NEVER USED [facility] Tobacco Use History This section includes a history of the smoking, or tobacco-related health factors, that were collected on or before the date of the Encounter. The data comes from the [place] facility where the Encounter took place. Date/Time Smoking Status/Tobacco Use Comment F acility Jan 10, 2019 10:51 AM [place]-TOBACCO NEVER USED [facility] Advance Directives: All historical and current Section Date Range: From patient's date of to the date document was created. This section includes ALL of a patient's completed or amended [place] Advance and Rescinded Directives. The entries below indicate that a directive exists for the patient, but an actual copy is not included with this document. The data comes from all [place] facilities. Date Advance Directives Provider Source Aug 14, 2020 ADVANCE DIRECTIVE CRISTOPHER BENITEZ LD Encounter Notes: All associated encounter notes This section contains the clinical notes associated to the Encounter. Date/Time Encounter Note(s) Provider Source Oct 31, 2023 08:33 AM SOCIAL WORK NOTE: LOCAL TITLE: PERSONAL CARE SERVICES REVIEW STANDARD TITLE: SOCIAL WORK NOTE DATE OF NOTE: OCT 31, 2023@08:33 ENTRY DATE: OCT 31, 2023@08:33:33 AUTHOR: MARJORIE FAY COSIGNER: URGENCY: STATUS: COMPLETED Personal Care Services Review Type of review: Reauthorization Information to complete oversight obtained from: Review of medical record Review of community vendor submitted documentation Community vendor staff Specify Contact: Wally Godinez Community [facility] Community vendor point of contact Name: Wally The care plan has been reviewed. Care rendered as authorized. [place] meets administrative eligibility criteria. meets clinical eligibility criteria. Case Mix Tool: Date Completed: Mar Case Mix Score: K First range of hours to be used. Plan: Authorization(s) to remain the same Homemaker/Home Health Aide Standardized Episode of Care (SEOC) SEOC duration: 365 days Hours per SEOC duration: 19 hrs/week bundled with respite Date of next review: 04/26/24 /lalo/ Marjorie aFy RN RN Signed: 10/31/2023 08:35 MARJORIE FAY [place] [facility]
--- OUTSIDE RECORDS SUMMARY | 2024-03-07 06:42 | XMS_ITS | Encounter Summary ---
Author Name [facility] [place] Address [address] [place] [id number] Care Team Providers Care Solder Making Laborer Name Role Phone RAMONA HUNTER Primary Care [...] PART B Feb 27, 2017 PART B [id number] REJI,GUSTAVO NRY PATIENT MEDICARE (WNR) MEDICARE (M) PART B Feb 27, 2017 PART B [id number] [phone] REJI,GUSTAVO NRY PATIENT MEDICARE (WNR) MEDICARE (M) PART A Feb 27, 2001 PART A [id number] [phone] REJI,GUSTAVO NRY PATIENT MEDICARE (WNR) MEDICARE (M) PART A Feb 27, 2001 PART A [id number] WILGUS,HE NRY PATIENT Selected Encounter This section includes the information on record at [place] for the Encounter. Date/Time Encounter Type Encounter Description Reason Provider Source Dec 08, 2023 03:00 PM TYMPANOMETRY AUDIOLOGY ICD-10-CM H90.3 Sensorineural hearing loss, bilateral ANNABEL AGUILERA IHYg Encounter Template Text not used by [place] Assessments - Encounter Diagnoses This section includes the primary and secondary diagnoses documented for the Encounter. Date/Time Primary/Secondary Diagnosis Diagnosis Name Provider Source Dec 08, 2023 05:20 PM PRIMARY Sensorineural hearing loss, bilateral ANNABEL AGUILERA [facility] Plan of Treatment: Future Appointments (+ 6 months) and Future Tests (+/- 45 days) The Plan of Treatment section includes future care activities for the patient from all [place] [facility]. This section includes future appointments and future orders which are active, pending or scheduled. Future Appointments This section includes appointments that were scheduled to occur 6 months from the date of the Encounter, up to a maximum of 20 appointments. The data comes from all [facility] facilities. Appointment Date/Time Appointment Type Appointme nt Facility Name Jan 11, 2024 11:25 AM [facility] Apr 24, 2024 03:00 PM [facility] May 15, 2024 01:30 PM AMBULATORY - MEDICINE [facility] Active, Pending, and Scheduled Orders This section [...] Dec 21, 2023 12:00 AM Laboratory - Chemistry Order BASIC METABOLIC PANEL (non-fasting) BLOOD ([facility]) [facility] Jan 15, 2024 01:29 PM Consult Order PODIATRY/[facility] OUTPT Cons Stationary Equipment Mechanic's Choice [facility] Jan 19, 2024 12:00 AM Laboratory - Chemistry Order URINALYSIS CLEAN CATCH [facility] Jan 19, 2024 12:00 AM Laboratory - Microbiology Order URINE CULTURE(MWROX) URINE CLEAN CATCH [facility] Social History: Smoking Status (Most current) and Tobacco Use (All prior to encounter date) This section includes the most current, and the historical, smoking and tobacco- related health factors from the [place] facility where the Encounter took place. Current Smoking Status This section includes the most current smoking, or tobacco-related health factor, from the [place] facility where the Encounter took place. Date/Time Current Smoking Status Comment Facil ity Dec 14, 2022 12:15 PM VA-TOBACCO NEVER USED [facility] Tobacco Use History This section includes a history of the smoking, or tobacco-related health factors, that were collected on or before the date of the Encounter. The data comes from the [place] facility where the Encounter took place. Date/Time Smoking Status/Tobacco Use Comment F acility Jan 10, 2019 10:51 AM VA-TOBACCO NEVER USED [facility] Advance Directives: All historical and current Section Date Range: From patient's date of to the date document was created. This section includes ALL of a patient's completed or amended [place] Advance and Rescinded Directives. The entries below indicate that a directive exists for the patient, but an actual copy is not included with this document. The data comes from all [place] facilities. Date Advance Directives Provider Source Aug 14, 2020 ADVANCE DIRECTIVE CRISTOPHER BENITEZ Encounter Notes: All associated encounter notes This section contains the clinical notes associated to the Encounter. Date/Time Encounter Note(s) Provider Source Dec 08, 2023 04:04 PM NURSING NOTE: LOCAL TITLE: NURSING NOTE STANDARD TITLE: NURSING NOTE DATE OF NOTE: DEC 08, 2023@16:04 ENTRY DATE: DEC 08, 2023@16:04:45 AUTHOR: PEDRITO COLE COSIGNER: URGENCY: STATUS: COMPLETED Work Station Support Specialist responded to a medical emergency in audiology. was present upon arrival ([phone].[id number]), hooked up a blood pressure cuff and pulse ox and BP initially was 97/61 ([phone]) with a pulse of 63, decision was made to send via 911 to the [facility]. did not loose concsiouness but did become glossy eyed and looked as though he was going to pass out , Mesa stated I don't feel good . [facility] arrived and turn over was given by and I was released from the scene by paramedics. /lalo/ PEDRITO COLE RN Registered Nurse Signed: 12/08/2023 16:09 PEDRITO COLE [place] [facility] [place] [facility] Dec 08, 2023 09:47 AM AUDIOLOGY E & M NO TE: LOCAL TITLE: AUDIOLOGY CLINIC STANDARD TITLE: AUDIOLOGY E & M NOTE DATE OF NOTE: DEC 08, 2023@09:47 ENTRY DATE: DEC 08, 2023@09:47:17 AUTHOR: ANNABEL AGUILERA COSIGNER: URGENCY: STATUS: COMPLETED MEDICAL EVENT: During today's audiology visit, Carmine experienced a medical event and an emergency response was activated. Carmine slumped over and stopped responding when spoken too/shaken to get attention. He became pale and glossy eyed. Alerted [place] police who activated the emergency response. Medical staff, [place] police, and [place] [facility] arrived to triage and take Carmine via ambulance to an ER. A JSPR report has been entered. The following occured during today's visit prior to the medical event: Dx CODE: H90.3-Sensorineural Hearing Loss, Bilateral APPOINTMENT TYPE: Hearing Re-Evaluation and Hearing Aid Fitting BACKGROUND/HISTORY: Carmine was seen today for a hearing re-evaluation and hearing aid fitting, accompanied by his storage architect Lakshmi. His last hearing evaluation was on 10/04/23, at which time he presented with decreased hearing in the presence of cerumen. He was seen by ENT Dr. Connor the same day and cerumen was successfully cleared. Today a repeat audiogram is being performed to determine if thresholds have improved since cerumen removal. Carmine denies tinnitus and vertigo. Carmine was fit on 08/24/20 with LARS JOSEFINA EDGE AI BTE 13s. He notes a decline in benefit from these devices. Given the age of these devices, he is considered eligible for updated hearing aids through the [place]. Fitting of the new devices is being performed today as well. Medical history includes: Active problems - Computerized Problem List is the source for the followin. History of SARS-CoV-2 2. Long-term current use of anticoagulant 3. Atrial fibrillation 4. Exposure to potentially hazardous chemical 5. Lipoma 6. Alzheimer's disease 7. Hiccups 8. Anemia 9. 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 Cognitive impairment 12. Actinic keratosis 13. Primary hypertension 14. Disorder of meniscus of knee 15. Benign prostatic hypertrophy with outflow obstruction 16. Erectile dysfunction 17. SS - Spinal stenosis 18. Cat. - Cataract 19. HL - Hearing loss ASSESSMENT: Results of today's testing are as follows: Otoscopy was WNL bilaterally. Type As, reduced compliance, tympanograms obtained bilaterally, an improvement compared to Type B tymps at his previous hearing test. Pure tone audiometric testing under headphones revealed mild/moderate sloping to severe sensorineural hearing loss from 250-8000 Hz. Improvement in air conduction thresholds, particularly for the left ear, compared to 10/04/23. Mixed component no longer present. HEARING AID FITTING: How does the patient best learn? Verbal instruction, demonstration Does the patient have any cultural and temple beliefs, emotional barriers, physical or cognitive limitations, and communication barriers which may impact his ability to learn? Yes, dementia Desire and motivation to learn? Good OBJECTIVE (O): Physical fit of hearing aids was good. Patient verified comfort. Verification of an appropriate acoustic response was obtained using Real Ear measurements (speech mapping) and NAL-NL2 targets. The patient reported good subjective benefit as well. Feedback continuum of care manager was run. Hearing aids were found to be meeting targets adequately. Settings stored in CAR[facility]. ASSESSMENT (A): The following devices were issued: Make: LARS Model: EVOLV AI BTE 13 Right Serial Number: [id number] Left Serial Number: [id number] Battery size: 13 Warranty ends: 11/07/26 Trial Period ends: 04/06/24 Earmold Information: Canal lock earmold Tubing: Thin tube size 4 Program(s): Automatic Button(s): Short press= Synced VC via rocker switches Long press= Accessory start/stop Fitting Formula: NAL-NL2 Remote Programming: HAs are capable Bluetooth: not interested Medical event occurred during real ear testing and the remainder of the visit was forgone. did leave with the new devices today. PLAN (P): 1. Follow-up for programming/adjustments as needed. 2. The International Outcome Inventory-Hearing Aids (IOI-DOVER) will be mailed to the in four weeks. He was asked to complete and mail back to clinic after completion. 3. Hearing re-evaluation in 3-5 years, or sooner if change in hearing occurs. Patient Education Education provided on the following topics: Hearing test results, hearing aid care and maintenance Education provided to: SO/F Response to Education: VU Aguilar Patient P Family F Significant Other SO Verbalizes Understanding VU Returns Demonstration RD Performs Independently PI Lacks Comprehension LC Refused Education RE Not Applicable NA /lalo/ MAURICE MCMANUS, CCC-A STAFF MORTGAGE LOAN OFFICER Signed: 12/08/2023 17:20 ANNABEL AGUILERA [place] [facility]
--- OUTSIDE RECORDS SUMMARY | 2024-03-07 06:42 | XMS_ITS | Encounter Summary ---
Author Name [facility] [place] [facility] Address [address] [place] [id number] Care Team Providers Care Lost And Found Clerk Name Role Phone RAMONA HUNTER Primary Care [...] PART B Feb 27, 2017 PART B [id number] REJI,GUSTAVO NRY PATIENT MEDICARE (WNR) MEDICARE (M) PART B Feb 27, 2017 PART B [id number] [phone] GUSTAVO MENDOZA NRY PATIENT MEDICARE (WNR) MEDICARE () PART A Feb 27, 2001 PART A [id number] REJI,GUSTAVO NRY PATIENT MEDICARE (WNR) MEDICARE () PART A Feb 27, 2001 PART A [id number] [phone] GUSTAVO MENDOZA PATIENT Selected Encounter This section includes the information on record at [place] for the Encounter. Date/Time Encounter Type Encounter Description Reason Pro vider Source Nov 07, 2023 10:21 AM Outpatient Encounter OTOLARYNGOLOGY/ENT IHE Encounter Template Text not used by [place] Plan of Treatment: Future Appointments (+ 6 months) and Future Tests (+/- 45 days) The Plan of Treatment section includes future care activities for the patient from all [place] [facility]. This section includes future appointments and future orders which are active, pending or scheduled. Future Appointments This section includes appointments that were scheduled to occur 6 months from the date of the Encounter, up to a maximum of 20 appointments. The data comes from all [facility]. Appointment Date/Time Appointment Type Appointme nt Facility Name Nov 28, 2023 08:00 AM AMBULATORY - MEDICINE [facility] Dec 08, 2023 08:00 AM AMBULATORY - MEDICINE [facility] Dec 08, 2023 03:00 PM AMBULATORY - REHAB MEDICIN [facility] Jan 11, 2024 11:25 AM AMBULATORY - MEDICINE [facility] Apr 24, 2024 03:00 PM AMBULATORY - MEDICINE [facility] Active, Pending, and Scheduled Orders This section includes a listing of several types of active, pending, and scheduled orders, including clinic medications orders, diagnostic test orders, procedure orders and consult orders; where the start date of the order is 45 days before the date of the Encounter or 45 days after the date of theEncounter. The data comes from all [facility]. Test Date/Time Test Type Test Details Facility Name Dec 21, 2023 12:00 AM Laboratory - Chemi stry Order BASIC METABOLIC PANEL (non-fasting) BLOOD (SST-SERUM) SP [facility] Social History: Smoking Status (Most current) and Tobacco Use (All prior to encounter date) This section includes the most current, and the historical, smoking and tobacco- related health factors from the [place] facility where the Encounter took place. Current Smoking Status This section includes the most current smoking, or tobacco-related health factor, from the [place] facility where the Encounter took place. Date/Time Current Smoking Status Comment Facil ity Dec 14, 2022 12:15 PM VA-TOBACCO NEVER USED [facility] Tobacco Use History This section includes a history of the smoking, or tobacco-related health factors, that were collected on or before the date of the Encounter. The data comes from the [place] facility where the Encounter took place. Date/Time Smoking Status/Tobacco Use Comment Dane acility Jan 10, 2019 10:51 AM VA-TOBACCO NEVER USED [facility] Advance Directives: All historical and current Section Date Range: From patient's date of to the date document was created. This section includes ALL of a patient's completed or amended [place] Advance and Rescinded Directives. The entries below indicate that a directive exists for the patient, but an actual copy is not included with this document. The data comes from all [place] facilities. Date Advance Directives Provider Source Aug 14, 2020 ADVANCE DIRECTIVE CRISTOPHER BENITEZ Encounter Notes: All associated encounter notes This section contains the clinical notes associated to the Encounter. Date/Time Encounter Note(s) Provider Source Nov 07, 2023 10:21 AM TELEPHONE ENCOUNTE R NOTE: LOCAL TITLE: TELEPHONE NOTE/SPECIALTY CLINIC STANDARD TITLE: TELEPHONE ENCOUNTER NOTE DATE OF NOTE: NOV 07, 2023@10:21 ENTRY DATE: NOV 07, 2023@10:22:02 AUTHOR: TANAY LUNA EXP COSIGNER: URGENCY: STATUS: COMPLETED TELEPHONE NOTE/SPECIALTY CLINIC Has ADDENDA Veterans daughter Lakshmi (on [place]) called stating that her father has a ENT appt the same day as his Optometry appt 05/15/2024. She was wondering if her father could be seen before Optometry which is at 2:30pm. Could he be seen at 1:30pm instead? Josette goins. /lalo/ TANYA LUNA ADVANCED SHOE LASTER Signed: 11/07/2023 10:28 Receipt Acknowledged By: 11/07/2023 13:43 /es/ Jamin Cameron LPN Licensed Practical Nurse 11/08/2023 08:18 /es/ EBEN PRESSLEY LPN Specialty Care 11/07/2023 10:41 /es/ Shannon Connor MD Otolaryngology 11/07/2023 ADDENDUM STATUS: COMPLETED Sure. I think 1:00 if the time slot. happy to make it easier for the . /es/ Shannon Connor MD Otolaryngology Signed: 11/07/2023 10:42 11/07/2023 ADDENDUM STATUS: COMPLETED Called veterans daughter and rescheduled . All set. Thank you! /lalo/ TANYA LUNA ADVANCED SHOE LASTER Signed: 11/07/2023 11:18 TANYA LUNA [place] [facility]
--- OUTSIDE RECORDS SUMMARY | 2024-03-07 06:42 | XMS_ITS ---
Author Name [facility] [place] [facility] [place] [facility] [place] Address [address] [place] [address] Care Team Providers Care Head Worker Name Role Phone RAMONA HUNTER Primary Care [...] PART B Feb 27, 2017 PART B [id number] REJI,GUSTAVO NRY PATIENT MEDICARE (WNR) MEDICARE (M) PART B Feb 27, 2017 PART B [id number] REJI,GUSTAVO NRY PATIENT MEDICARE (WNR) MEDICARE (M) PART A Feb 27, 2001 PART A [id number] [phone] WILGUS,HE NRY PATIENT MEDICARE (WNR) MEDICARE (M) PART A Feb 27, 2001 PART A [id number] [phone] GUSTAVO MENDOZA PATIENT Selected Encounter This section includes the information on record at [place] for the Encounter. 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 Date/Time Primary/Secondary Diagnosis Diagnosis Name Provider Source Oct 04, 2023 05:01 PM PRIMARY Unspecified hearing loss, bilateral NORRIS-JOSE,C [place] [facility] [place] [facility] Oct 04, 2023 05:01 PM SECONDARY Tinea unguium NORRIS-JOSE,C [place] [facility] [place] [facility] Plan of Treatment: Future Appointments (+ 6 months) and Future Tests (+/- 45 days) The Plan of Treatment section includes future care activities for the patient [facility] [place] [facility] This section includes future appointments and future orders which are active, pending or scheduled. Future Appointments This section includes appointments that were scheduled to occur 6 months from the date of the Encounter, up to a maximum of 20 appointments. The data comes from all [place] treatment facilities. Appointment Date/Time Appointment Type Appointme nt Facility Name Oct 04, 2023 02:00 PM AMBULATORY - REHAB MEDICIN E [place] [facility] [place] [facility] Oct 04, 2023 03:00 PM AMBULATORY - MEDICINE [place] [facility] [place] [facility] Oct 04, 2023 03:30 PM AMBULATORY - MEDICINE [place] [facility] [place] [facility] Oct 04, 2023 04:15 PM AMBULATORY - MEDICINE [place] [facility] [place] [facility] Nov 28, 2023 08:00 AM AMBULATORY - MEDICINE [place] [facility] [place] [facility] Dec 08, 2023 08:00 AM AMBULATORY - MEDICINE [facility] Dec 08, 2023 03:00 PM AMBULATORY - [facility] MEDICIN E [place] [facility] [place] [facility] Jan 11, 2024 11:25 AM AMBULATORY - MEDICINE [place] [facility] [place] [facility] Vital Signs: All taken on the encounter date This section contains inpatient and outpatient Vital Signs collected on the date of the Encounter. Date/Time Temperature Pulse Blood Pressure Respiratory Rate SP02 Pain Height Weight Body Mass Index Source Oct 03, 2023 01:00 PM 97.3 74 110/60 16 97 0 [place] [facility] Social History: Smoking Status (Most current) and Tobacco Use (All prior to encounter date) This section includes the most current, and the historical, smoking and tobacco- related health factors from the [place] facility where the Encounter took place. Current Smoking Status This section includes the most current smoking, or tobacco-related health factor, from the [place] facility where the Encounter took place. Date/Time Current Smoking Status Comment Facil ity Dec 14, 2022 12:15 PM VA-TOBACCO NEVER USED [place] [facility] Tobacco Use History This section includes a history of the smoking, or tobacco-related health factors, that were collected on or before the date of the Encounter. The data comes from the [place] facility where the Encounter took place. Date/Time Smoking Status/Tobacco Use Comment F acility Jan 10, 2019 10:51 AM VA-TOBACCO NEVER USED [place] [facility] Advance Directives: All historical and current [...] Encounter. Date/Time Encounter Note(s) Provider Source Oct 03, 2023 01:39 PM [facility] NOTE: LOCAL TITLE: [facility] SKEIN INSPECTOR PROGRESS NOTE STANDARD TITLE: [facility] NOTE DATE OF NOTE: OCT 03, 2023@13:39 ENTRY DATE: OCT 03, 2023@13:39:47 AUTHOR: KERI HUNTER COSIGNER: URGENCY: STATUS: COMPLETED [facility] SKEIN INSPECTOR PROGRESS NOTE Has ADDENDA VA Video Connect (VVC) Standard Documentation CWM/NO/VVC/[facility]/PACT2/SNP VVC Clinician Resources Only: E911 (Emergency Call Relay Center): [phone] National Veterans Crisis Line - (6-529-425-EFWW) press #1. KENNEYFeliz Suicide Coordinator [phone], Ext. [phone]; Back-up Ext. [phone] Sample Case Porter of the Day(AOD), KENNEYLis Piper [phone], Ext. [phone] Introduction: Visit is being conducted by [place] [facility]. Claridge identified with 2 identifiers: [X] Full Name [X] Date of [ ] VA ID Card Emergency Plan: confirmed and/or provided the following information in case of emergency or technology failure. Is patient phone number correct, if not, enter below: Claridge's phone number: DILIA MENDOZA [address], [place] [address] PHONE NUMBER [CELLULAR] - PATIENT PHONE - [phone] Claridge's present location and address for appointment: home Claridge's emergency contact name and phone number: Lakshmi (on file) Claridge reported that location is private and safe: Yes Informed Consent: informed of the risks and benefits of Telehealth video care. Claridge has the right to refuse video services. If refuses video visit, a [id number] visit will be scheduled. verbalized consent for this video visit: Yes provided consent for any other persons present for visit: Yes If yes, who and relationship to patient: Secure visit: Visit was locked for security and privacy:Billie:Called DILIA MENDOZA PHONE NUMBER [CELLULAR] - PATIENT PHONE - [phone] VVC visit for concern of growth to left ear. Active problems - Computerized Problem List is [...] - Cataract 19. HL - Hearing loss Allergies: LATEX GLOVE The following VA and Non-VA meds were reconciled with patient: Active and Recently Outpatient Medications (excluding Supplies): Active Outpatient Medications Status 1) APIXABAN 2.5MG TAB TAKE ONE TABLET BY MOUTH EVERY 12 ACTIVE (S) HOURS FOR PREVENTION OF BLOOD CLOTS 2) CARBAMIDE PEROXIDE 6.5% OTIC SOLN INSTILL 5 DROPS ACTIVE INTO THE AFFECTED EAR(S) TWICE DAILY FOR EAR WAX BLOCKAGE 3) CARBOXYMETHYLCELLULOSE NA 0.5% OPH SOLN INSTILL 1 ACTIVE DROP INTO EACH EYE FOUR TIMES DAILY NEEDED FOR DRY EYE 4) DIGOXIN 0.125MG TAB TAKE ONE TABLET BY MOUTH EVERY ACTIVE (S) OTHER DAY 5) DOCUSATE NA 100MG CAP TAKE ONE CAPSULE BY MOUTH TWICE ACTIVE DAILY NEEDED FOR CONSTIPATION TO SOFTEN STOOL 6) MULTIVITAMIN/MINERALS CHEW TAB CHEW 1 TABLET BY MOUTH ACTIVE ONCE DAILY FOR VITAMIN SUPPLEMENTATION 7) NUTRITION SUPL ENSURE PLUS/SHIVA LIQUID DRINK 1 CAN BY ACTIVE MOUTH ONCE DAILY FOR NUTRITIONAL SUPPLEMENTATION 8) NYSTATIN 078580 UNT/GM CREAM APPLY A THIN LAYER ACTIVE TOPICALLY TWICE DAILY 9) PANTOPRAZOLE NA 40MG EC TAB TAKE ONE TABLET BY MOUTH ACTIVE TWICE DAILY FOR EXCESSIVE PRODUCTION OF STOMACH ACID 10) ZINC OXIDE 20% OINT APPLY THIN LAYER TOPICALLY ONCE ACTIVE DAILY NEEDED FOR SKIN IRRITATION Pending Outpatient Medications Status 1) ZINC OXIDE 20% OINT APPLY THIN LAYER TOPICALLY ONCE PENDING DAILY NEEDED Inactive Outpatient Medications Status 1) DICLOFENAC NA 1% TOP GEL APPLY 2 GRAMS TOPICALLY FOUR TIMES DAILY NEEDED FOR OSTEOARTHRITIS - USE DOSING CARD PROVIDED IN BOX 2) PREDNISOLONE ACETATE 1% OPH SUSP INSTILL 1 DROP INTO THE AFFECTED EYE(S) FOUR TIMES A DAY DIRECTED Active Non-VA Medications Status 1) Non-VA DOCUSATE NA 100MG CAP 100MG BY MOUTH ONCE ACTIVE DAILY NEEDED 14 Total Medications Review of systems: increase in hearing loss O: Warty type white growth to right ear canal at 9 oclock occluding >50% of ear canal A/P: >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 Medication Reconciliation: Outpatient Medication Reconciliation No Discrepancies Found - Med Rec Completed. The patient's medication list/medication history was compared with CPRS and reviewed with the patient/caregiver and reconciled. The patient/caregiver was instructed to update this list, discard old lists, and take this list to their next appointment, whether with a VA or non-VA provider. Any changes in medications and any medications discontinued are documented in this note. No barriers; Patient understands and agrees to current treatment plan. If pt has any questions, concerns, or changes in current health status he/she will call or come in to the VA. /bettye HUNTER RN,MSN,CANDLE WICKER-C [facility] NURSE PRACTITIONER Signed: 10/04/2023 17:01 10/04/2023 ADDENDUM STATUS: COMPLETED fungal rash improving: will order nystatin powder for PRN use /lalo/ RAMONA HUNTER RN,MSN,CANDLE WICKER-C [facility] NURSE PRACTITIONER Signed: 10/04/2023 17:01 JEFF HUNTER KYZeina [facility]ENTER[facility]
--- OUTSIDE RECORDS SUMMARY | 2024-03-07 06:42 | XMS_ITS | Encounter Summary ---
Author Name [facility] [place] [place] Organization [place] Address [address] [place] [id number] Care Team Providers Care Medical Scientific Liaison Name Role Phone RAMONA HUNTER Primary Care [...] PART B Feb 27, 2017 PART B [id number] ARONGUS,GUSTAVO NRY PATIENT MEDICARE (WNR) MEDICARE (M) PART B Feb 27, 2017 PART B [id number] [phone] WILGUS,GUSTAVO NRY PATIENT MEDICARE (WNR) MEDICARE (M) PART A Feb 27, 2001 PART A [id number] WILGUS,HE NRY PATIENT MEDICARE (WNR) MEDICARE (M) PART A Feb 27, 2001 PART A [id number] [phone] WILGUS,HE NRY PATIENT Selected Encounter This section includes the information on record at [place] for the Encounter. Date/Time Encounter Type Encounter Description Reason Provider Source Oct 03, 2023 01:00 PM MEASURE BLOOD OXYGEN LEVEL [facility] Nursing (RN / LP) ICD-10-CM H91.93 Unspecified hearing loss, bilateral JODI SUTTON Yg Encounter Template Text not used by [place] Assessments - Encounter Diagnoses This section includes the primary and secondary diagnoses documented for the Encounter. Date/Time Primary/Secondary Diagnosis Diagnosis Name Provider Source Oct 09, 2023 04:26 PM PRIMARY Unspecified hearing loss, bilateral [facility] [place] [facility] Oct 09, 2023 04:26 PM SECONDARY Alzheimer's disease, unspecified [facility] [place] [facility] Oct 09, 2023 04:26 PM SECONDARY Dem in oth dis classd elswhr,unsp sev,w/o beh/psych/mood/an x [facility] Plan of Treatment: Future Appointments (+ 6 months) and Future Tests (+/- 45 days) The Plan of Treatment section includes future care activities for the patient from [facility] [place] [facility]. This section includes future appointments and future orders which are active, pending or scheduled. Future Appointments This section includes appointments that were scheduled to occur 6 months from the date of the Encounter, up to a maximum of 20 appointments. The data comes from all [place] treatment facilities. Appointment Date/Time Appointment Type Appointme nt Facility Name Oct 04, 2023 02:00 PM AMBULATORY - REHAB MEDICIN E [place] [facility] [place] [facility] Oct 04, 2023 03:00 PM AMBULATORY - MEDICINE [place] [facility] [place] [facility] Oct 04, 2023 03:30 PM AMBULATORY - MEDICINE [place] [facility] [place] [facility] Oct 04, 2023 04:15 PM AMBULATORY - MEDICINE [place] [facility] [place] [facility] Nov 28, 2023 08:00 AM AMBULATORY - MEDICINE [place] [facility] [place] [facility] Dec 08, 2023 08:00 AM AMBULATORY - MEDICINE [facility] Dec 08, 2023 03:00 PM AMBULATORY - REHAB MEDICIN E [place] [facility] [place] [facility] Jan 11, 2024 11:25 AM [facility] Vital Signs: All taken on the encounter date This section contains inpatient and outpatient Vital Signs collected on the date of the Encounter. Date/Time Temperature Pulse Blood Pressure Respiratory Rate SP02 Pain Height Weight Body Mass Index Source Oct 03, 2023 01:00 PM 97.3 74 110/60 16 97 0 [place] [facility] Social History: Smoking Status (Most current) and Tobacco Use (All prior to encounter date) This section includes the most current, and the historical, smoking and tobacco- related health factors from the [place] facility where the Encounter took place. Current Smoking Status This section includes the most current smoking, or tobacco-related health factor, from the [place] facility where the Encounter took place. Date/Time Current Smoking Status Comment Facil ity Dec 14, 2022 12:15 PM VA-TOBACCO NEVER USED [facility] Tobacco Use History This section includes a history of the smoking, or tobacco-related health factors, that were collected on or before the date of the Encounter. The data comes from the [place] facility where the Encounter took place. Date/Time Smoking Status/Tobacco Use Comment F acility Jan 10, 2019 10:51 AM [place]-TOBACCO NEVER USED [facility] Advance Directives: All historical and current Section Date Range: From patient's date of to the date document was created. This section includes ALL of a patient's completed or amended [place] Advance and Rescinded Directives. The entries below indicate that a directive exists for the patient, but an actual copy is not included with this document. The data comes from all [place] facilities. Date Advance Directives Provider Source Aug 14, 2020 ADVANCE DIRECTIVE CRISTOPHER BENITEZ Encounter Notes: All associated encounter notes This section contains the clinical notes associated to the Encounter. Date/Time Encounter Note(s) Provider Source Oct 03, 2023 01:00 PM [facility] NURSING NOTE: LOCAL TITLE: [facility] RN PROGRESS NOTE STANDARD TITLE: [facility] NURSING NOTE DATE OF NOTE: OCT 03, 2023@13:00 ENTRY DATE: OCT 09, 2023@16:26:47 AUTHOR: RÍOS-DANNI,GABR EXP COSIGNER: URGENCY: STATUS: COMPLETED Nursing Progress Note Active and Recently Outpatient [...] BY MOUTH EVERY ACTIVE (S) OTHER DAY 7) DOCUSATE NA 100MG CAP [...] ONCE DAILY FOR NUTRITIONAL SUPPLEMENTATION 13) NYSTATIN 155550 UNT/GM CREAM APPLY A THIN LAYER ACTIVE [...] ONCE ACTIVE DAILY NEEDED FOR SKIN IRRITATION Inactive Outpatient Medications Status 1) DICLOFENAC NA 1% TOP GEL APPLY 2 GRAMS TOPICALLY FOUR TIMES DAILY NEEDED FOR OSTEOARTHRITIS - USE DOSING CARD PROVIDED IN BOX 2) PREDNISOLONE ACETATE 1% OPH SUSP INSTILL 1 DROP INTO THE AFFECTED EYE(S) FOUR TIMES A DAY DIRECTED Active Non-VA Medications Status 1) Non-VA DOCUSATE NA 100MG CAP 100MG BY MOUTH ONCE ACTIVE DAILY NEEDED 19 Total Medications MEDICATION REVIEW Medication review completed [...] in patient's home at time of visit. identified by: Full Name, Address, Facial Recognition Length of visit in home: 45 min Problem addressed for this visit: Ear irrigation, fungal infection follow up NURSING SUMMARY: Visit made to home for ear irrigation, and fungal infection follow up. [place] sitting in recliner upon nurse arrival. DWARF TREE GROWER present for visit and girlfriend Lakshmi available by phone. VSS. No c/o pain. Ear irrigation completed, tolerated well. Left ear with small amount of cerumen, TM visible. Left ear occluded by mass with the shape of a valdivia . HOOP DRIVING MACHINE OPERATOR called and VVC completed. will see ENT for evaluation tomorrow after audiology appointment in [facility]. Fungal infection to intergluteal cleft, resolved. Caregiver inquiring about script for powder antifungal to use as needed for recurrence. HOOP DRIVING MACHINE OPERATOR notified during VVC and order was placed. NO falls, NO ER visits and No hospitalizations. Blood Pressure: 124/78 (10/04/2023 14:53) Pulse: 81 (10/04/2023 14:53) Respiration: 16 (10/04/2023 14:53) Temperature: 97.2 F [36.2 C] (10/04/2023 14:53) Pain Score: 0 (10/04/2023 14:53) EXAMINATION: Lungs: Clear bilaterally Edema: none HR: Denies chest pain Bowel/Bladder: regular bowel and bladder reported Skin: dry and intact Home Safety FALLS NO INFECTIONS NO ER/HOSPITALIZATIONS NO Teaching/goals: See nursing summary above Patient verbalizes understanding to above and will call with any concerns or changes in condition. For emergent care call 911. Plan for next visit: Routine visit, chronic disease management, safety, and care coordination. Scheduled for 11/01/ JODI SUTTON RN [facility] biochemistry teacher Signed: 10/09/2023 16:43 CRISTOBAL SUTTON [facility]
--- OUTSIDE RECORDS SUMMARY | 2024-03-07 06:43 | XMS_ITS | Encounter Summary ---
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 Date/Time Encounter Type Encounter Description Reason Provider Source Sep 05, 2023 03:47 PM Outpatient Encounter TELEPHONE HBVANDANA MCGRATH Encounter Template Text not used by [place] Plan of Treatment: Future Appointments (+ 6 months) and Future Tests (+/- 45 days) The Plan of Treatment section includes future care activities for the [facility] This section includes future appointments and future orders which are active, pending or scheduled. Future Appointments This section includes appointments that were scheduled to occur 6 months from the date of the Encounter, up to a maximum of 20 appointments. The data comes from all [place] treatment facilities. Appointment Date/Time Appointment Type Appointme nt Facility Name Oct 04, 2023 02:00 PM AMBULATORY - [place] [facility]IC[facility] [place] [facility] [place] [facility] Oct 04, 2023 03:00 PM AMBULATORY - MEDICINE [facility] [place] [facility] Oct 04, 2023 03:30 PM AMBULATORY - MEDICINE [facility] [place] [facility] Oct 04, 2023 04:15 PM AMBULATORY - MEDICINE [facility] [place] [facility] Nov 28, 2023 08:00 AM AMBULATORY - MEDICINE [facility] [place] [facility] Dec 08, 2023 08:00 AM AMBULATORY - MEDICINE [facility] Dec 08, 2023 03:00 PM AMBULATORY - REHAB MEDICIN [place] [facility] [place] [facility] Jan 11, 2024 11:25 AM [facility] Social History: Smoking Status (Most current) and Tobacco Use (All prior to encounter date) This section includes the most current, and the historical, smoking and tobacco- related health factors from the [place] facility where the Encounter took place. Current Smoking Status This section includes the most current smoking, or tobacco-related health factor, from the [place] facility where the Encounter took place. Date/Time Current Smoking Status Phill Frederick telly Dec 14, 2022 12:15 PM VA-TOBACCO [facility] USED [facility] Tobacco Use History This section includes a history of the smoking, or tobacco-related health factors, that were collected on or before the date of the Encounter. The data comes from the [place] facility where the Encounter took place. Date/Time Smoking Status/Tobacco Use Comment F acility Jan 10, 2019 10:51 AM AL-TOBACCO NEVER USED [place] [facility] [place] [facility] Advance Directives: All historical and current Section Date Range: From patient's date of to the date document was created. This section includes ALL of a patient's completed or amended VA Advance and Rescinded Directives. The entries below indicate that a directive exists for the patient, but an actual copy is not included with this document. The data comes from all [place] facilities. Date Advance Directives Provider Source Aug 14, 2020 ADVANCE DIRECTIVE BENITEZ,CRISTOPHERPATRICIA MORGAN Encounter Notes: All associated encounter notes This section contains the clinical notes associated to the Encounter. Date/Time Encounter Note(s) Provider Source Sep 05, 2023 03:48 PM ADMINISTRATIVE NOTE: LOCAL TITLE: ADMINISTRATIVE NOTE STANDARD TITLE: ADMINISTRATIVE NOTE DATE OF NOTE: SEP 05, 2023@15:48 ENTRY DATE: SEP 05, 2023@15:48:55 AUTHOR: KERI GARCIA COSIGNER: URGENCY: STATUS: COMPLETED SUBJECT: Result type:Discharge/Transfer Note HospitalResult date: Patient: DILIA MENDOZA Age: 88 Years Sex: Male : 1935 Patient Information Discharge Location: [place] Primary Care Physician: Saray Garcia NP Admit Date/Time: 08/28/23 01:52 Discharge Disposition Discharge Disposition: Home with Home Health Discharge Diagnosis Altered mental status (R41.82) Acute COVID-19 (U07.1) _ Discharge Medications apixaban (Eliquis 2.5 mg oral tablet) 1 tab(s) 2.5 Milligram By Mouth 2 times a day Carbamide Peroxide Otic (Carbamide Peroxide 6.5% Otic) 2 times a day Diclofenac Topical (diclofenac 1% topical gel) 2 gram Topically 4 times a day as needed Arthritis Digoxin (digoxin 0.125 mg oral tablet) 0.125 Milligram By Mouth Every other day Docusate (Docusate Sodium Capsule) 100 Milligram 1 capsule By Mouth 2 times a day Multivitamin (Multivitamin Tablet) 1 tab(s) By Mouth Daily Ocular Lubricant (Artificial Tears1.4%) 2 Drops Eyes, Both Every 12 hours Dryness. Pantoprazole (pantoprazole 40 mg oral delayed release tablet) 40 Milligram By Mouth 2 times a day for 14 Days Inpatient Medications Medications (14) Active SCHEDULED: (5) Apixaban 2.5 mg Tablet (Eliquis) 2.5 mg, By Mouth, 2 times a day Digoxin 0.125 mg Tablet (digoxin 0.125 mg oral tablet) 0.125 mg, By Mouth, Daily Multivitamin Tablet 1 tablet, By Mouth, Daily NaCl 0.9% Flush 3ml (NaCL 0.9% Flush) 3 mL, IV Push, Every 8 hours Polyvinyl Alcohol 1.4% Opthalmic Solution/Artificial Tears (Artificial Tears1.4%) 2 drops, Eyes, Both, Every 12 hours CONTINUOUS: (0) PRN: (9) Acetaminophen 325 mg Tablet (Acetaminophen Tablet) 650 mg, By Mouth, Every 4 hours Al hydroxide/Mg hydroxide/simethicone 200 mg-200 mg-20 mg/5 mL Susp UD (Maalox Plus Liquid) 15 mL, By Mouth, 4 times a day Dextromethorphan-Guaifenesi n 20 mg-200 mg/10 mL Liqu UD (Robitussin DM Liquid) 10 mL, By Mouth, Every 4 hours Docusate Sodium 100 mg Capsule (Docusate Sodium Capsule) 100 mg 1 capsule, By Mouth, 2 times a day Melatonin 3 mg Tablet (Melatonin Tablet) 3 mg, By Mouth, Daily at bedtime NaCl 0.9% Flush 3ml (NaCL 0.9% Flush) 3 mL, IV Push, Every 8 hours Polyethylene Glycol 17 Gm Powder (MiraLax Powder) 17 Gm 1 pack/packet, By Mouth, Daily Senna Tablet 8.6 mg 1 tablet, By Mouth, 2 times a day Simethicone 80 mg Chewable Tablet (Simethicone Tablet) 80 mg, Chew, 3 times a day Vaccinations and Immunoprophylaxis influenza virus vaccine, inactivated: 999 Unknown (12/14/22 08:00:00) influenza virus vaccine, inactivated: 0.7 Unknown (12/06/21 08:00:00) influenza virus vaccine, inactivated: 0.7 Unknown (12/05/20 08:00:00) influenza virus vaccine, inactivated: 0.5 Unknown (12/14/18 08:00:00) influenza virus vaccine, inactivated: 0.5 Unknown (11/15/17 08:00:00) influenza virus vaccine, inactivated: 0.5 Unknown (11/07/16 08:00:00) influenza virus vaccine, inactivated: 0.5 Unknown (11/26/15 08:00:00) influenza virus vaccine, inactivated: 0.5 Unknown (11/28/14 08:00:00) SARS-CoV-2 (COVID-19) mRNA-1273 vaccine: 0.25 Unknown (06/18/21 08:00:00) SARS-CoV-2 (COVID-19) mRNA-1273 vaccine: 0.25 Unknown (12/31/20 08:00:00) SARS-CoV-2 (COVID-19) mRNA-1273 vaccine: 0.5 Unknown (05/14/20 08:00:00) SARS-CoV-2 (COVID-19) mRNA-1273 vaccine: 0.5 Unknown (04/11/20 07:00:00) [id number] bivalent booster vax: 0.5 Unknown (12/06/21 08:00:00) tetanus/diphtheria/pertussi s, acel(Tdap): 0.5 mL (06/21/23 18:15:00) tetanus/diphtheria/pertussi s, acel(Tdap): 0.5 Unknown (11/26/15 08:00:00) Zoster Vaccine Live: 1 Unknown (11/28/14 08:00:00) Allergies Allergies (Active and Proposed Allergies Only) Latex (Severity: Unknown severity, Onset: Unknown) Reactions: rash/hives Hospital Course Covid-19 Infection Delirium Afib with RVR Dilia is an 88-year-old male who has a history of atrial fibrillation on Eliquis, and dementia with episodic agitation. He presented for evaluation of delirium, slurred speech, and fever times several days. His partner was diagnosed with COVID-19 2 days ago, and she provided the pertinent information for this admission. Apparently he has been having intermittent fevers, without complaints of chills. No N/V/D. But did have acute mental status changes with confusion, and slurring of his speech. Upon arrival he had a Tmax of 102.6, with an elevated BP of 159/98, and an SaO2 of 94% on RA. His BMP was notable only for modest hyperglycemia 145, while CXR was negative and CT scan of the brain unremarkable for acute changes. A COVID-19 PCR study was positive, and EKG showed sinus rhythm with first-degree AV block. Did not require O2 or Antibiotics. Atrial fibrillation with RVR History of A-fib and then went in to Afib with RVR 2 times during this admit. He was started on Digoxin, Talked to Dr. Gallagher and rec to continue digoxin for now daily vs EOD. Patient prior was on amiodarone but this was discontinued due to dizziness and then was on digoxin + cardizem which resulted in deshaun. so that was held as well For now doing well without any deshaun episodes and rate controlled. Altered mental status (R41.82) Acute COVID-19 (U07.1): ? More awake and alert oriented to person and place. Objective Measurements Height: 185.9 cm (09/01/23) Weight: 86.9 kg (08/28/23) Dry Weight: 86.9 kg (08/28/23) Body Mass Index: 25.15 kg/m2 High (08/28/23) Vital Signs Temperature: 98.1 DegF (09/01/23 12:00:00) Temperature Route: Temporal (09/01/23 12:00:00) Pulse Rate: 86 bpm (09/01/23 12:00:00) Respiratory Rate: 20 br/min (09/01/23 12:00:00) Systolic Blood Pressure: 152 mm Hg High (09/01/23 12:00:00) Diastolic Blood Pressure: 90 mm Hg High (09/01/23 12:00:00) Blood pressure sites: Arm, right (09/01/23 12:00:00) Mean Arterial Pressure: 111 mm Hg (09/01/23 12:00:00) Pulse Pressure: 62 mm Hg (09/01/23 12:00:00) Oxygen Saturation: 96 % (09/01/23 12:00:00) Mode of Delivery (Oxygen): Room air (09/01/23 12:00:00) Early Warning Score: 0 (09/01/23:38:49) Intake/Output 08/27 01:52 08/31 07:00 08/30 07:00 07 07:00 07 07:00 08/31 14:20 08/31 14:20 07 06:59 07 06:59 07 06:59 Intake 4768 298 108 027 4879 Output 4675 0 400 0 2925 Net Total 93 298 -120 480 -1315 Diaper Count 2 2 0 0 0 [place] Coma Scale [place] Coma Score: 15 (08/30/23 13:09:00) Motor Response-Adult: Obeys commands (08/30/23 13:09:00) Response Eye Opening: Spontaneously (08/30/23 13:09:00) Verbal Response-Adult: Oriented and converses (08/30/23 13:09:00) Physical Exam Pending Results No Pending Results Patient Instructions You came to the hospital with complaints of confusion and was diagnosed with COVID. You had sick contacts at home which could possibly be the reason. While you are here your heart rate was increased and you went into A-fib temporarily on and off. We talked with cardiology and restarted you on medication called digoxin. Currently you are feeling well, per PT eval you probably need rehab. Per your wishes we are currently doing VNA services to your home to help with physical therapy. Please contact your cardiology office on Monday to update them your course and your medication Contact your PCP for follow-up If it only started having fever again and shortness of breath please present back to the ER immediately Post Discharge Care Discharge * 09/01/23 14:20:00 EDT Home Health Face to Face *Denotes mandatory [place] *I certify that this patient is under my care and that I or an allowed non- physician working with me had a face to face encounter with the patient on this date: 09/01/2023 14:21 *The encounter with the patient was in whole, or in part, for the following medical condition, which is the primary diagnosis(es) for home health care: Altered mental status (R41.82) Acute COVID-19 (U07.1) *Select the indications for the discipline/s that are being arranged for this patient. Nursing (select all that apply): [_] None [y_] Medication management (reconciliation, teaching) [y_] Chronic disease management [_] Wound care and treatment [_] Home safety evaluation [_] Administer SQ/IM/IV medications [_] Cath care [_] Drain care [_] Trach or GT care Other _ Occupation Therapy (select all that apply): [_] None [_y] ADL Management [_y] Fall prevention training [_] Energy conservation [_] Cognitive training Other _ Physical Therapy (select all that apply): [_] None [_] Functional mobility training [y_] Home exercise program to strengthen [_y] Increase ROM [_] Falls prevention training [_] Home maintenance program for chronic disease Other _ Speech Therapy (select all that apply): [_] None [_] Swallow evaluation and training [_] Speech and language training [_] Cognitive training to process, organize, and/or recall information Other _ *Homebound due to (select all that apply): [_] Inability to leave home without assistance/supervision [_] Inability to ambulate without assistance [_] Pain [_] Decreased strength and endurance [_] Unsteady gait [_] Severe SOB and fatigue [_] Impaired transfers [_] Inability to negotiate stairs [_] Limited weight bearing [_] Mental status change *Physician Signature: _Kevyn gaines *By signing this, I certify that I have personally evaluated the patient and agree with the findings and recommendations as documented above. althFTF Results Discharge Labs BLOOD COUNT & DIFF WBC 6.0 k/mm3 () 08/29/2023 05:48 RBC 4.30 m/mm3 (Low) 08/29/2023 05:48 Hgb 12.9 Gm/dL (Low) 08/29/2023 05:48 Hct 38.1 % (Low) 08/29/2023 05:48 MCV 88.6 femtoliters () 08/29/2023 05:48 MCH 30.0 pg () 08/29/2023 05:48 MCHC 33.9 g/dL () 08/29/2023 05:48 Platelet Count 169 k/mm3 () 08/29/2023 05:48 RDW-SD 45.4 femtoliters () 08/29/2023 05:48 MPV 10.3 femtoliters () 08/29/2023 05:48 Nucleated RBC (Automated) 0.0 #/100 WBC'S () 08/29/2023 05:48 Abs. NRBC 0.0 k/mm3 () 08/29/2023 05:48 Abs. Neut 6.3 k/mm3 () 08/27/2023 23:04 Abs. Lymph 0.4 k/mm3 (Low) 08/27/2023 23:04 Abs. [place] 0.7 k/mm3 () 08/27/2023 23:04 Abs. Eo 0.0 k/mm3 () 08/27/2023 23:04 Abs. Baso 0.1 k/mm3 () 08/27/2023 23:04 Neut % 83.8 % (High) 08/27/2023 23:04 Lymph % 5.6 % (Low) 08/27/2023 23:04 [place] % 9.0 % () 08/27/2023 23:04 Eos % 0.5 % () 08/27/2023 23:04 Baso % 0.8 % () 08/27/2023 23:04 Imm Gran 0.3 % () 08/27/2023 23:04 Abs. Imm Gran 0.0 k/mm3 () 08/27/2023 23:04 CHEM GENERAL Sodium 139 mmol/L () 08/29/2023 05:48 Potassium 4.3 mmol/L () 08/29/2023 05:48 Chloride 106 mmol/L () 08/29/2023 05:48 Bicarbonate Level 29 mmol/L () 08/29/2023 05:48 Anion Gap 4 () 08/29/2023 05:48 Glucose Level 145 mg/dL (High) 08/27/2023 23:04 BUN 13 mg/dL () 08/29/2023 05:48 Creatinine-Blood 1.18 mg/dL () 08/29/2023 05:48 Estimated GFR Creatinine 60 ML/MIN/1.73 M2 () 08/29/2023 05:48 Calcium 8.5 mg/dL (Low) 08/27/2023 23:04 Protein, Total 6.4 Gm/dL () 08/27/2023 23:04 Albumin 3.4 Gm/dL () 08/27/2023 23:04 AG Ratio 1.1 () 08/27/2023 23:04 Alkaline Phosphatase 68 units/L () 08/27/2023 23:04 AST (SGOT) 11 units/L () 08/27/2023 23:04 ALT (SGPT) 13 units/L () 08/27/2023 23:04 Bilirubin, Total 0.2 mg/dL () 08/27/2023 23:04 Lactate 2.0 mmol/L () 08/27/2023 23:04 HEME OTHER Hold Blue Top SPECIMEN DISCARDED AFTER 4 HOURS. () 08/27/2023 23:04 MISC. CHEMISTRY Hold Green Top SPECIMEN DISCARDED AFTER 1 WEEK () 08/27/2023 23:04 Hold Gel Top SPECIMEN DISCARDED AFTER 1 WEEK () 08/27/2023 23:04 Hold Green Top 2 SPECIMEN DISCARDED AFTER 1 WEEK () 08/27/2023 23:04 URINE OTHER Est Creatinine Clearance 50.11 mL/min () 08/29/2023 06:36 VIROLOGY COVID-19 PCR Specimen Source NASAL () 08/27/2023 22:45 COVID- 19 PCR Result POSITIVE (Abnormal) 08/27/2023 22:45 35 minutes spent on discharge end of copy and paste /lalo/ SARAY GARCIA RN,MSN,HEEL SEAM RUBBER-C [facility] NURSE PRACTITIONER Signed: 09/05/2023 15:51 Receipt Acknowledged By: 09/05/2023 15:56 /lalo/ JODI SUTTON RN [facility] promotions coordinator NENA GARCIA [facility] Sep 05, 2023 03:47 PM [facility] NOTE: LOCAL TITLE: [facility] TELEPHONE NOTE STANDARD TITLE: [facility] NOTE DATE OF NOTE: SEP 05, 2023@15:47 ENTRY DATE: SEP 05, 2023@15:47:56 AUTHOR: KERI GARCIA EXP COSIGNER: URGENCY: STATUS: COMPLETED S:Called DILIA MENDOZA PHONE NUMBER [[email or web address]] - PATIENT PHONE - [phone] TelePhone visit to Jelly to schedule post hospital visit and discuss Rx for dig and colace. Patient has cardiology f/u 09/15/23. A/P: >hx rapid afib: [facility] records reviewed. Will give bridge of ramesh 0.125mcg erery other day until see cardiology. CC fax # provided. >constipation: colace 100mg BID PRN ordered f/u 09/10 ~10am f/u RN MIKE 09/12 f/u cards 09/15/23 Time spent: Review of medical records: 5 min Time spent w patient including shared decision makin min Post visit documentation: 5 min Upcoming Appointments: 10/04/2023 14:00 CWM NO AUDIO EVAL D 10/04/2023 15:30 NHM/OPTOMETRY/BORASKI (x)medications -patient reports taking as prescribed No barriers; Patient/family understands and agrees to current treatment plan. If pt has any questions, concerns, or changes in current health status he/she will call or [facility] Medication Reconciliation: Outpatient Medication Reconciliation No [...] medications discontinued are documented in this note. /lalo/ SARAY GARCIA RN,MSN,HEEL SEAM RUBBER-C [facility] NURSE PRACTITIONER Signed: 09/05/2023 16:01 NENA GARCIA [facility]
--- OUTSIDE RECORDS SUMMARY | 2024-03-07 06:43 | XMS_ITS | Encounter Summary ---
Author Name [facility] [place] Organization [facility] [place] Address [address] [place] [id number] Care Team Providers Care Acid Regenerator Name Role Phone RAMONA HUNTER Primary Care [...] PART B Feb 27, 2017 PART B [id number] REJI,GUSTAVO NRY PATIENT MEDICARE (WNR) MEDICARE (M) PART B Feb 27, 2017 PART B [id number] GUSTAVO MENDOZA NRY PATIENT MEDICARE (WNR) MEDICARE () PART A Feb 27, 2001 PART A [id number] REJI,GUSTAVO NRY PATIENT MEDICARE (WNR) MEDICARE (M) PART A Feb 27, 2001 PART A [id number] GUSTAVO MENDOZA PATIENT Selected Encounter This section includes the information on record at [place] for the Encounter. Date/Time Encounter Type Encounter Description Reason Provider Source Sep 04, 2023 08:30 AM PRO PHONE CALL 5-10 MIN TELEPHONE [facility] ICD-10-CM G30.9 Alzheimer's disease, unspecified JODI SUTTON Yg Encounter Template Text not used by [place] Assessments - Encounter Diagnoses This section includes the primary and secondary diagnoses documented for the Encounter. Date/Time Primary/Secondary Diagnosis Diagnosis Name Provider Source Sep 04, 2023 08:30 AM PRIMARY Alzheimer's disease, unspecified [facility] Sep 04, 2023 08:30 AM SECONDARY Dem in oth dis classd elswhr,unsp sev,w/o beh/psych/mood/anx [facility] [place] [facility] Sep 04, 2023 08:30 AM SECONDARY Unspecified atrial fibrillation [facility] Plan of Treatment: Future Appointments (+ 6 months) and Future Tests (+/- 45 days) The Plan of Treatment section includes future care activities for the patient from all [place] [facility]. This section includes future appointments and future orders which are active, pending or scheduled. Future Appointments This section includes appointments that were scheduled to occur 6 months from the date of the Encounter, up to a maximum of 20 appointments. The data comes from all [place] treatment facilities. Appointment Date/Time Appointment Type Appointme nt Facility Name Oct 04, 2023 02:00 PM AMBULATORY - REHAB MEDICIN E [place] [facility] [place] [facility] Oct 04, 2023 03:00 PM AMBULATORY - MEDICINE [place] [facility] [place] [facility] Oct 04, 2023 03:30 PM AMBULATORY - MEDICINE [place] [facility] Oct 04, 2023 04:15 PM AMBULATORY - MEDICINE [place] [facility] Nov 28, 2023 08:00 AM AMBULATORY - MEDICINE [facility] [place] [facility] Dec 08, 2023 08:00 AM AMBULATORY - MEDICINE [facility] Dec 08, 2023 03:00 PM AMBULATORY - REHAB MEDICIN E [place] [facility]TR [facility] Jan 11, 2024 11:25 AM AMBULATORY - [facility] Social History: Smoking Status (Most current) and Tobacco Use (All prior to encounter date) This section includes the most current, and the historical, smoking and tobacco- related health factors from the [place] facility where the Encounter took place. Current Smoking Status This section includes the most current smoking, or tobacco-related health factor, from the [place] facility where the Encounter took place. Date/Time Current Smoking Status Comment Facil ity Dec 14, 2022 12:15 PM VA-TOBACCO [facility] Tobacco Use History This section includes a history of the smoking, or tobacco-related health factors, that were collected on or before the date of the Encounter. The data comes from the [place] facility where the Encounter took place. Date/Time Smoking Status/Tobacco Use Comment F acility Jan 10, 2019 10:51 AM VA-TOBACCO NEVER USED [facility] Advance Directives: All historical and current Section Date Range: From patient's date of to the date document was created. This section includes ALL of a patient's completed or amended [place] Advance and Rescinded Directives. The entries below indicate that a directive exists for the patient, but an actual copy is not included with this document. The data comes from all [place] facilities. Date Advance Directives Provider Source Aug 14, 2020 ADVANCE DIRECTIVE CRISTOPHER BENITEZ Encounter Notes: All associated encounter notes This section contains the clinical notes associated to the Encounter. Date/Time Encounter Note(s) Provider Source Sep 04, 2023 11:18 AM [facility] NOTE: LOCAL TITLE: [facility] POST DISCHARGE CONTACT STANDARD TITLE: [facility] NOTE DATE OF NOTE: SEP 04, 2023@11:18 ENTRY DATE: SEP 04, 2023@11:19:08 AUTHOR: RAÚL SUTTON COSIGNER: URGENCY: STATUS: COMPLETED Location of Discharge: Hospital Contact attempt: 1st identified by the following: Full Name Date of Contact made through telephone call Spoke with someone other than the [place]: Spoke to: Significat other/HCP Lakshmi Reason for hospitalization/Emergen cy Department/Urgent Care visit: Covid 19 /Caregiver states condition has improved. Symptoms to monitor for health maintenance: Sob, cognitive status changes Confirmed the below changes to medications, equipment or supplies: Vet started on Digoxin 0.125mg tab daily Medications, equipment or supplies were obtained/purchased. Primary Diagnosis at Discharge: Other Diagnosis: Covid 19 and A fib exacerbation Follow up Service Referrals: None Future Appointments: Informed, discussed and confirmed next scheduled appointments Education Provided: Length of time spent: 10 minutes /lalo/ FLORI MIDDLETON operations examiner Signed: 09/04/2023 11:[address] [facility] Sep 04, 2023 10:30 AM [facility] NOTE: LOCAL TITLE: [facility] TELEPHONE NOTE STANDARD TITLE: [facility] NOTE DATE OF NOTE: SEP 04, 2023@10:30 ENTRY DATE: SEP 04, 2023@10:50:51 AUTHOR: RAÚL SUTTON EXP COSIGNER: URGENCY: STATUS: COMPLETED Duration of call: 10 min Call received from significant other/HCP Lakshmi with to report was discharged home with services on 09/01/23. was admitted to [facility] serviced by on 09/02/23 with plan for OT and PT to start this week. [place] A fib was out of control during this hospital admission and vet was discharged on Digoxin 0.125 mg tab. Caregiver reports that has enough Digoxin to last him until 09/14 therefore she is wondering if PCP can prescribed refill, will add SCALE OPERATOR to notify of request. Nurse advised caregiver to call Cardiology to schedule appointment for follow up. Caregiver waiting for call back from Cardiology office to schedule follow up. Per caregiver report is home stable. Caregiver also requested for Stool softener prescription as need a refill. has docusate on non-VA med list as this was prescribed during a previous hospital admission. F2F visit scheduled for 09/12 /lalo/ FLORI MIDDLETON operations examiner Signed: 09/04/2023 11:02 Receipt Acknowledged By: 09/05/2023 10:55 /lalo/ RAMONA HUNTER RN,MSN,TRAVEL CONSULTANT-C [facility] NURSE PRACTITIONER [facility]
--- OUTSIDE RECORDS SUMMARY | 2024-03-07 06:43 | XMS_ITS | Encounter Summary ---
Author Name [place] Organization [place] Address [address] [place] [id number] Care Team Providers Care Angiography Nurse Name Role Phone SARAY GARCIA Primary Care Provider Unav ailable FABI BLEDSOE [...] PART B Feb 27, 2017 PART B [id number] [phone] REJI,GUSTAVO NRY PATIENT MEDICARE (WNR) MEDICARE (M) PART B Feb 27, 2017 PART B [id number] [phone] GUSTAVO MENDOZA NRY PATIENT MEDICARE (WNR) MEDICARE () PART A Feb 27, 2001 PART A [id number] REJI,GUSTAVO NRY PATIENT MEDICARE (WNR) MEDICARE (M) PART A Feb 27, 2001 PART A [id number] GUSTAVO MENDOZA PATIENT Selected Encounter This section includes the information on record at [place] for the Encounter. Date/Time Encounter Type Encounter Description Reason Provider Source Sep 08, 2023 12:25 PM HC PRO PHONE CALL 5-10 MIN TELEPHONE [facility] ICD-10-CM R68.89 Other general symptoms and signs JODI SUTTON Yg Encounter Template Text not used by [place] Assessments - Encounter Diagnoses This section includes the primary and secondary diagnoses documented for the Encounter. Date/Time Primary/Secondary Diagnosis Diagnosis Name Provider Source Sep 08, 2023 12:25 PM PRIMARY Other general symptoms and signs JODI SUTTON [facility] Plan of Treatment: Future Appointments (+ 6 months) and Future Tests (+/- 45 days) The Plan of Treatment section includes future care activities for the patient from all [place] [facility]. This section includes future appointments and future orders which are active, pending or scheduled. Future Appointments This section includes appointments that were scheduled to occur 6 months from the date of the Encounter, up to a maximum of 20 appointments. The data comes from all [place] treatment facilities. Appointment Date/Time Appointment Type Appointme nt Facility Name Oct 04, 2023 02:00 PM AMBULATORY - REHAB MEDICIN [place] [facility] Oct 04, 2023 03:00 PM AMBULATORY - MEDICINE [facility] [place] [facility] Oct 04, 2023 03:30 PM AMBULATORY - MEDICINE [facility] [place] [facility] Oct 04, 2023 04:15 PM AMBULATORY - MEDICINE [place] [facility] Nov 28, 2023 08:00 AM AMBULATORY - MEDICINE [place] [facility] Dec 08, 2023 08:00 AM AMBULATORY - MEDICINE [facility] Dec 08, 2023 03:00 PM AMBULATORY - REHAB MEDICIN [place] [facility] Jan 11, 2024 11:25 AM AMBULATORY - MEDICINE [facility] Social History: Smoking Status (Most current) and Tobacco Use (All prior to encounter date) This section includes the most current, and the historical, smoking and tobacco- related health factors from the [place] facility where the Encounter took place. Current Smoking Status This section includes the most current smoking, or tobacco-related health factor, from the [place] facility where the Encounter took place. Date/Time Current Smoking Status Comment [place] ity Dec 14, 2022 12:15 PM VA-TOBACCO NEVER USED [facility] Tobacco Use History This section includes a history of the smoking, or tobacco-related health factors, that were collected on or before the date of the Encounter. The data comes from the [place] facility where the Encounter took place. Date/Time Smoking Status/Tobacco Use Comment F acility Jan 10, 2019 10:51 AM VA-TOBACCO NEVER USED [facility] Advance Directives: All historical and current Section Date Range: From patient's date of to the date document was created. This section includes ALL of a patient's completed or amended [place] Advance and Rescinded Directives. The entries below indicate that a directive exists for the patient, but an actual copy is not included with this document. The data comes from all [place] facilities. Date Advance Directives Provider Source Aug 14, 2020 ADVANCE DIRECTIVE CRISTOPHER BENITEZ Encounter Notes: All associated encounter notes This section contains the clinical notes associated to the Encounter. Date/Time Encounter Note(s) Provider Source Sep 08, 2023 02:11 PM ADDENDUM: LOCAL TITLE: Addendum STANDARD TITLE: ADDENDUM DATE OF NOTE: SEP 08, 2023@14:11:19 ENTRY DATE: SEP 08, 2023@14:11:21 AUTHOR: KERI GARCIA COSIGNER: URGENCY: STATUS: COMPLETED Please call into pharmacy: Prescriber: Saray Garcia NP Call back # [phone] RX: POLYMIXIN/TRIMETHOPRIM 0.1% SOLN,OPHPALMIC drops 2 drops in both eye 4 times daily for 5 to 7 days, until resolved Disp: 1 no RF /lalo/ SARAY GARCIA RN,MSN,HAND II TUBE BENDER-C [facility] NURSE PRACTITIONER Signed: 09/08/2023 14:16 Receipt Acknowledged By: 09/08/2023 14:23 /es/ JODI SUTTON RN [facility] strategy consultant ========= --- Original Document --- 09/08/23 [facility] TELEPHONE NOTE: Duration of call: 5 min Called [facility] and [facility] significant other Lakshmi. seen today by [facility] nurse and was noted to have bilateral eye redness (worse on right eye), swelling, watery eyes and does voiced itching. Nurse stated that due to dementia she could not get much information from but she is concern with ?pink eye. Guild caregiver Lakshmi requesting that if anything will be prescribed to be sent to [email or web address] in [place] as she won't have time to spanish moss picker at [place] clinic today. Adding SEWING MACHINE ASSEMBLER /es/ JODI SUTTON RN [facility] strategy consultant Signed: 09/08/2023 12:32 Receipt Acknowledged By: 09/08/2023 14:11 /es/ SARAY GARCIA RN,MSN,HAND II TUBE BENDER-C [facility] NURSE PRACTITIONER KERI GARCIA [facility] Sep 08, 2023 12:25 PM HB NOTE: LOCAL TITLE: [facility] TELEPHONE NOTE STANDARD TITLE: [facility] NOTE DATE OF NOTE: SEP 08, 2023@12:25 ENTRY DATE: SEP 08, 2023@12:25:46 AUTHOR: RAÚL SUTTON EXP COSIGNER: URGENCY: STATUS: COMPLETED [facility] TELEPHONE NOTE Has ADDENDA Duration of call: 5 min Called received and [facility] and significant other Lakshmi. seen today by [facility] nurse and was noted to have bilateral eye redness (worse on right eye), swelling, watery eyes and does voiced itching. Nurse stated that due to dementia she could not get much information from but she is concern with ?pink eye. Guild caregiver Lakshmi requesting that if anything will be prescribed to be sent to [email or web address] in [place] as she won't have time to spanish moss picker at [place] clinic today. Adding SEWING MACHINE ASSEMBLER /es/ JODI SUTTON RN [facility] strategy consultant Signed: 09/08/2023 12:32 Receipt Acknowledged By: 09/08/2023 14:11 /es/ SARAY GARCIA RN,MSN,HAND II TUBE BENDER-C [facility] NURSE PRACTITIONER 09/08/2023 ADDENDUM STATUS: COMPLETED Please call into pharmacy: Prescriber: Saray Garcia NP Call back # [phone] RX: POLYMIXIN/TRIMETHOPRIM 0.1% SOLN,OPHPALMIC drops 2 drops in both eye 4 times daily for 5 to 7 days, until resolved Disp: 1 no RF /lalo/ SARAY GARCIA RN,MSN,HAND II TUBE BENDER-C [facility] NURSE PRACTITIONER Signed: 09/08/2023 14:16 Receipt Acknowledged By: * AWAITING SIGNATURE * JODI SUTTON [facility]
--- OUTSIDE RECORDS SUMMARY | 2024-03-07 06:43 | XMS_ITS | Encounter Summary ---
Author Name Department of Vetera Affairs ([place]) Organization [facility] Address [address] [place] [address] Care Team Providers Care Mat Man Name Role Phone RAMONA HUNTER Primary Care [...] PART B Feb 27, 2017 PART B [id number] REJI,GUSTAVO NRY PATIENT MEDICARE (WNR) MEDICARE (M) PART B Feb 27, 2017 PART B [id number] REJI,GUSTAVO NRY PATIENT MEDICARE (WNR) MEDICARE (M) PART A Feb 27, 2001 PART A [id number] [phone] REJI,GUSTAVO NRY PATIENT MEDICARE (WNR) MEDICARE (M) PART A Feb 27, 2001 PART A [id number] GUSTAVO MENDOZA PATIENT Selected Encounter This section includes the information on record at [place] for the Encounter. Date/Time Encounter Type Encounter Description Reason Pro vider Source Oct 03, 2023 10:01 AM Outpatient Encounter [facility] Nursing (RN / LP) IHE Encounter Template Text not used by [place] Plan of Treatment: Future Appointments (+ 6 months) and Future Tests (+/- 45 days) The Plan of Treatment section includes future care activities for the patient from all [place] treatmentfacilities. This section includes future appointments and future orders which are active, pending or scheduled. Future Appointments This section includes appointments that were scheduled to occur 6 months from the date of the Encounter, up to a maximum of 20 appointments. The data comes from all [place] treatment facilities. Appointment Date/Time Appointment Type Appointme nt Facility Name Oct 04, 2023 02:00 PM AMBULATORY - REHAB MEDICIN E [place] [facility] [place] [facility] Oct 04, 2023 03:00 PM AMBULATORY - MEDICINE [facility] [place] [facility] Oct 04, 2023 03:30 PM AMBULATORY - MEDICINE [facility] [facility] Oct 04, 2023 04:15 PM AMBULATORY - MEDICINE [place] C [place] [facility] Nov 28, 2023 08:00 AM AMBULATORY - MEDICINE [facility] [place] [facility] Dec 08, 2023 08:00 AM AMBULATORY - MEDICINE [facility] Dec 08, 2023 03:00 PM AMBULATORY - REHAB MEDICIN E [place] [facility] [place] [facility] Jan 11, 2024 11:25 AM AMBULATORY - MEDICINE [facility] [facility] Vital Signs: All taken on the encounter date This section contains inpatient and outpatient Vital Signs collected on the date of the Encounter. Date/Time Temperature Pulse Blood Pressure Respiratory Rate SP02 Pain Height Weight Body Mass Index Source Oct 03, 2023 01:00 PM 97.3 74 110/60 16 97 0 [place] [facility] Social History: Smoking Status (Most current) and Tobacco Use (All prior to encounter date) This section includes the most current, and the historical, smoking and tobacco- related health factors from the [place] facility where the Encounter took place. Current Smoking Status This section includes the most current smoking, or tobacco-related health factor, from the [place] facility where the Encounter took place. Date/Time Current Smoking Status Comment Facil ity Dec 14, 2022 12:15 PM VA-TOBACCO NEVER USED [facility] Tobacco Use History This section includes a history of the smoking, or tobacco-related health factors, that were collected on or before the date of the Encounter. The data comes from the [place] facility where the Encounter took place. Date/Time Smoking Status/Tobacco Use Comment F acility Jan 10, 2019 10:51 AM VA-TOBACCO NEVER USED [facility] Advance Directives: All historical and current Section Date Range: From patient's date of to the date document was created. This section includes ALL of a patient's completed or amended [place] Advance and Rescinded Directives. The entries below indicate that a directive exists for the patient, but an actual copy is not included with this document. The data comes from all [place] facilities. Date Advance Directives Provider Source Aug 14, 2020 ADVANCE DIRECTIVE CRISTOPHER BENITEZ Encounter Notes: All associated encounter notes This section contains the clinical notes associated to the Encounter. Date/Time Encounter Note(s) Provider Source Oct 03, 2023 10:07 AM MEDICATION MGT NOT E: LOCAL TITLE: MEDICATION RENEWAL STANDARD TITLE: MEDICATION MGT NOTE DATE OF NOTE: OCT 03, 2023@10:07 ENTRY DATE: OCT 03, 2023@10:07:57 AUTHOR: RAÚL SUTTON EXP COSIGNER: URGENCY: STATUS: COMPLETED Please renew the following if appropriate/in agreement. Thank you. OUTPT ZINC OXIDE 20% OINT (Status = Active) APPLY THIN LAYER TOPICALLY ONCE DAILY NEEDED FOR SKIN IRRITATION Rx# [id number] Last Released: 08/10/23 Qty/Days Supply: 454/30 Rx Expiration Date: 01/12/24 Refills Remainin Indication: FOR SKIN IRRITATION /es/ JODI SUTTON RN [facility] [employer]er wood flour Signed: 10/03/2023 10:09 Receipt Acknowledged By: 10/03/2023 10:24 /lalo/ RAMONA HUNTER RN,MSN,FRICTION WELDING MACHINE OPERATOR-C [facility] NURSE PRACTITIONER RAÚL SUTTON [facility]
--- OUTSIDE RECORDS SUMMARY | 2024-03-07 06:43 | XMS_ITS ---
Author Name [facility] [place] [facility] [place] Address [address] [place] [id number] Care Team Providers Care Hearing Impaired Teacher Name Role Phone RAMONA HUNTER Primary Care [...] PART B Feb 27, 2017 PART B [id number] ARONGUS,GUSTAVO NRY PATIENT MEDICARE (WNR) MEDICARE (M) PART B Feb 27, 2017 PART B [id number] ARONGUS,GUSTAVO NRY PATIENT MEDICARE (WNR) MEDICARE (M) PART A Feb 27, 2001 PART A [id number] WILGUS,GUSTAVO NRY PATIENT MEDICARE (WNR) MEDICARE (M) PART A Feb 27, 2001 PART A [id number] [phone] WILGUS,HE NRY PATIENT Selected Encounter This section includes the information on record at [place] for the Encounter. Date/Time Encounter Type Encounter Description Reason Pro vider Source July 11, 2023 12:00 PM Outpatient Encounter COMMUNITY CARE CONSULT IHE Encounter Template Text not used by [place] Plan of Treatment: Future Appointments (+ 6 months) and Future Tests (+/- 45 days) The Plan of Treatment section includes future care activities for the patient from all [place] treatmentfacilities. This section includes future appointments and future orders which are active, pending or scheduled. Future Appointments This section includes appointments that were scheduled to occur 6 months from the date of the Encounter, up to a maximum of 20 appointments. The data comes from all [place] treatment facilities. Appointment Date/Time Appointment Type Appointme nt Facility Name Oct 04, 2023 02:00 PM AMBULATORY - REHAB MEDICIN [place] [facility] [place] [facility] Oct 04, 2023 03:00 PM AMBULATORY - MEDICINE [facility] [place] [facility] Oct 04, 2023 03:30 PM AMBULATORY - MEDICINE [facility] [place] [facility] Oct 04, 2023 04:15 PM AMBULATORY - MEDICINE [place] [facility] [place] [facility] Nov 28, 2023 08:00 AM AMBULATORY - MEDICINE [facility] [place] [facility] Dec 08, 2023 08:00 AM AMBULATORY - MEDICINE [facility] Dec 08, 2023 03:00 PM AMBULATORY - REHAB MEDICIN E [place] [facility] [place] [facility] Jan 11, 2024 11:25 AM [facility] Social History: Smoking Status (Most current) and Tobacco Use (All prior to encounter date) This section includes the most current, and the historical, smoking and tobacco- related health factors from the [place] facility where the Encounter took place. Current Smoking Status This section includes the most current smoking, or tobacco-related health factor, from the [place] facility where the Encounter took place. Date/Time Current Smoking Status Phill varner Dec 14, 2022 12:15 PM [facility] Tobacco Use History This section includes a history of the smoking, or tobacco-related health factors, that were collected on or before the date of the Encounter. The data comes from the [place] facility where the Encounter took place. Date/Time Smoking Status/Tobacco Use Comment F acility Jan 10, 2019 10:51 AM [place]-TOBACCO NEVER USED [facility] Advance Directives: All historical and current Section Date Range: From patient's date of to the date document was created. This section includes ALL of a patient's completed or amended [place] Advance and Rescinded Directives. The entries below indicate that a directive exists for the patient, but an actual copy is not included with this document. The data comes from all [place] facilities. Date Advance Directives Provider Source Aug 14, 2020 ADVANCE DIRECTIVE CRISTOPHER BENITEZ Encounter Notes: All associated encounter notes This section contains the clinical notes associated to the Encounter. Date/Time Encounter Note(s) Provider Source July 11, 2023 12:00 PM CARDIOLOGY CONSULT : LOCAL TITLE: CONSULT REPORT/CARDIOLOGY STANDARD TITLE: CARDIOLOGY CONSULT DATE OF NOTE: JULY 11, 2023@12:00 ENTRY DATE: SEP 29, 2023@13:40:40 AUTHOR: JUAN PABLO REGALADO EXP COSIGNER: URGENCY: STATUS: COMPLETED VistA Imaging - Scanned Document SCANNED DOCUMENT SIGNATURE NOT REQUIRED Electronically Filed: 09/29/2023 by: JUAN PABLO CASEY [facility]
--- OUTSIDE RECORDS SUMMARY | 2024-03-07 06:43 | XMS_ITS ---
Author Name [facility] [place] Organization [facility] [place] Address [address] [place] [address] Care Team Providers Care Hand Pleater Name Role Phone RAMONA HUNTER Primary Care [...] PART B Feb 27, 2017 PART B [id number] REJI,GUSTAVO NRY PATIENT MEDICARE (WNR) MEDICARE (M) PART B Feb 27, 2017 PART B [id number] [phone] REJI,GUSTAVO NRY PATIENT MEDICARE (WNR) MEDICARE (M) PART A Feb 27, 2001 PART A [id number] [id number] WILGUS,HE NRY PATIENT MEDICARE (WNR) MEDICARE (M) PART A Feb 27, 2001 PART A [id number] UGSTAVO MENDOZA PATIENT Selected Encounter This section includes the information on record at [place] for the Encounter. Date/Time Encounter Type Encounter Description Reason Provider Source Sep 13, 2023 01:40 PM Outpatient Encounter [facility] PHYSIC EXTND(ROLL CHANGER,ENVIRONMENT ARTIST,PA) ICD-10-CM B35.6 Daron mercedes Alex HUNTER IHE Encounter Template Text not used by [place] Assessments - Encounter Diagnoses This section includes the primary and secondary diagnoses documented for the Encounter. Date/Time Primary/Secondary Diagnosis Diagnosis Name Provider Source Sep 14, 2023 08:38 AM PRIMARY Daron jetpipo Alex HUNTER [facility] [place] [facility] Plan of Treatment: Future Appointments (+ 6 months) and Future Tests (+/- 45 days) The Plan of Treatment section includes future care activities for the patient from all [place] treatmentfacilities. This section includes future appointments and future orders which are active, pending or scheduled. Future Appointments This section includes appointments that were scheduled to occur 6 months from the date of the Encounter, up to a maximum of 20 appointments. The data comes from all [place] treatment facilities. Appointment Date/Time Appointment Type Appointme nt Facility Name Oct 04, 2023 02:00 PM AMBULATORY - REHAB MEDICIN E [place] [facility] [place] [facility] Oct 04, 2023 03:00 PM AMBULATORY - MEDICINE ID C [facility] [place] [facility] Oct 04, 2023 03:30 PM AMBULATORY - MEDICINE ID C [facility] [place] [facility] Oct 04, 2023 04:15 PM AMBULATORY - MEDICINE ID C [facility] [place] [facility] Nov 28, 2023 08:00 AM AMBULATORY - MEDICINE ID C [facility] [place] [facility] Dec 08, 2023 08:00 AM AMBULATORY - MEDICINE [facility] Dec 08, 2023 03:00 PM AMBULATORY - REHAB MEDICIN E [facility] [place] [facility] Jan 11, 2024 11:25 AM AMBULATORY - MEDICINE [facility] [place] [facility] Vital Signs: All taken on the encounter date This section contains inpatient and outpatient Vital Signs collected on the date of the Encounter. Date/Time Temperature Pulse Blood Pressure Respiratory Rate SP02 Pain Height Weight Body Mass Index Source Sep 13, 2023 11:30 AM 98.2 66 140/80 16 97 0 ID [facility] Social History: Smoking Status (Most current) and Tobacco Use (All prior to encounter date) This section includes the most current, and the historical, smoking and tobacco- related health factors from the [place] facility where the Encounter took place. Current Smoking Status This section includes the most current smoking, or tobacco-related health factor, from the [place] facility where the Encounter took place. Date/Time Current Smoking Status Comment Facil ity Dec 14, 2022 12:15 PM [facility]CO [facility] Tobacco Use History This section includes a history of the smoking, or tobacco-related health factors, that were collected on or before the date of the Encounter. The data comes from the [place] facility where the Encounter took place. Date/Time Smoking Status/Tobacco Use Comment F acility Jan 10, 2019 10:51 AM [facility]TOBACCO [facility] Advance Directives: All historical and current Section Date Range: From patient's date of to the date document was created. This section includes ALL of a patient's completed or amended [place] Advance and Rescinded Directives. The entries below indicate that a directive exists for the patient, but an actual copy is not included with this document. The data comes from all ID facilities. Date Advance Directives Provider Source Aug 14, 2020 ADVANCE DIRECTIVE CRISTOPHER BENITEZ Encounter Notes: All associated encounter notes This section contains the clinical notes associated to the Encounter. Date/Time Encounter Note(s) Provider Source Sep 13, 2023 01:40 PM [facility] NURSING NOTE: LOCAL TITLE: [facility] TESTER SOUND PROGRESS NOTE STANDARD TITLE: [facility] NURSING NOTE DATE OF NOTE: SEP 13, 2023@13:40 ENTRY DATE: SEP 13, 2023@13:40:17 AUTHOR: KERI HUNTER COSIGNER: URGENCY: STATUS: COMPLETED [facility] Video Connect (VVC) Standard Documentation CWM/NO/VVC/[facility]/PACT2/SNP VVC Clinician Resources Only: E911 (Emergency Call Relay Center): [phone] [facility] Line - ([phone]) press #1. CWM Suicide Coordinator [phone], Ext. [phone]; Back-up Ext. [phone] [employer]icated Local Truck Driver of the Day(AOD), [place] [phone], Ext. [phone] Introduction: Visit is being conducted by ID [employer]. identified with 2 identifiers: [X] Full Name [X] Date of [ ] VA ID Card Emergency Plan: confirmed and/or provided the following information in case of emergency or technology failure. Is patient phone number correct, if not, enter below: Silver [employer]'s phone number: DILIA MENDOZA [address], [place] [address] PHONE NUMBER [CELLULAR] - PATIENT PHONE - [phone] [employer]ume's present location and address for appointment: patients home [employer]'s emergency contact name and phone number: /on file [employer] reported that location is private and safe: Yes Informed Consent: informed of the risks and benefits of Telehealth video care. has the right to refuse video services. If refuses video visit, a [id number] visit will be scheduled. verbalized consent for this video visit: Yes [employer] provided consent for any other persons present for visit: Yes If yes, who and relationship to patient: Secure visit: Visit was locked for security and privacy:Yes [employer]ume was seen for: rash Identified by name, , address and facial recognition: Y VV Ready: Yes [x] No [ ] HPI: Problem visit: 88 yo M seen by video accompanied by FLORI MCKEON. Reports of rash to buttock x 4-6 weeks that is not improving w zinc oxide and is itchy. [facility] is P[facility]. PMH: Active problems - Computerized Problem List is the source for the followin. History of SARS-CoV-2 2. Long-term current use of anticoagulant 3. Atrial fibrillation 4. Exposure to potentially hazardous chemical 5. Lipoma 6. Alzheimer's disease 7. Hiccups 8. Anemia 9. White matter disease 10. Disorder of thyroid gland subclinical hypothyroid 10/11/22 11. Cognitive impairment 12. Actinic keratosis 13. Primary hypertension 04/24/22 echo: LVEF 60-65%, no interval change as compared to 11/08/20 echo 04/21/22 EKG NSR w occ PVC, RBBB 14. Disorder of meniscus of knee s/p surgery on tanya knees 15. Benign prostatic hypertrophy with outflow obstruction s/p what sounds like a turp in 1998 16. Erectile dysfunction 17. SS - Spinal stenosis 18. Cat. - Cataract R 19. HL - Hearing loss Allergies: LATEX [...] TIMES DAILY NEEDED FOR DRY EYE 4) DICLOFENAC NA 1% TOP GEL APPLY 2 GRAMS TOPICALLY FOUR ACTIVE TIMES DAILY NEEDED FOR OSTEOARTHRITIS - USE DOSING CARD PROVIDED IN BOX 5) DIGOXIN 0.125MG TAB TAKE ONE TABLET BY MOUTH EVERY ACTIVE OTHER DAY FOR 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 6) DOCUSATE NA 100MG CAP TAKE ONE CAPSULE BY MOUTH TWICE ACTIVE DAILY NEEDED FOR CONSTIPATION TO SOFTEN STOOL 7) MULTIVITAMIN/MINERALS CHEW TAB CHEW 1 TABLET BY MOUTH ACTIVE ONCE DAILY FOR VITAMIN SUPPLEMENTATION 8) NUTRITION SUPL ENSURE PLUS/SHIVA LIQUID DRINK 1 CAN BY ACTIVE MOUTH ONCE DAILY FOR NUTRITIONAL SUPPLEMENTATION 9) PANTOPRAZOLE NA 40MG EC TAB TAKE ONE TABLET BY MOUTH ACTIVE TWICE DAILY FOR EXCESSIVE PRODUCTION OF STOMACH ACID 10) PREDNISOLONE ACETATE 1% OPH SUSP INSTILL 1 DROP INTO ACTIVE THE AFFECTED EYE(S) FOUR TIMES A DAY DIRECTED 11) ZINC OXIDE 20% OINT APPLY THIN LAYER TOPICALLY ONCE ACTIVE DAILY NEEDED FOR SKIN IRRITATION Active Non-VA Medications Status 1) Non-VA DOCUSATE NA 100MG CAP 100MG BY MOUTH ONCE ACTIVE DAILY NEEDED 12 Total Medications Recent Falls Y( ) N(x) Recent Infections Y( ) N(x) Recent Hospitalizations Y (x) N( ) Review of system: see HPI VITAL SIGNS: B/P: 162/78 (09/11/2023 14:50) Pulse: 78 (09/11/2023 14:50) Temperature: 98.3 F [36.8 C] (09/11/2023 14:50) Weight: 177.6 lb [80.56 kg] (09/11/2023 14:50) Height: 72 in [182.9 cm] (08/14/2020 10:08) BMI: BMI: 24.1 Pain: 0 (09/11/2023 14:50) (0-10 scale) Examination: buttock w raised red sclay patches consistant w fungal infection Future Clinic Visits 10/04/2023 14:00 [facility] NO AUDIO EVAL D 10/04/2023 15:30 NHM/OPTOMETRY/BORASKI All diagnostics from past month were reviewed with patient. Assessment/plan: >fungal infection to buttock: nystatin cream ordered keep skin C/D monitor Review of medical records: 5 min Time spent w patient including shared decision makin min Post visit documentation: 5 min No barriers; Patient understands and agrees to current treatment plan. If pt. has any questions, concerns, or changes in current health status he/she will call or come in to the [facility]. (X) medications reconciled Outpt. Medication Reconciliation: Outpatient [...] discontinued are documented in this note. /lalo/ RAMONA HUNTER RN,MSN,[facility] [employer]OWER-C [facility] NURSE PRACTITIONER Signed: 09/14/2023 08:38 JEFF HUNTER [facility]
--- OUTSIDE RECORDS SUMMARY | 2024-03-07 06:43 | XMS_ITS ---
Author Name [facility] [place] Organization [place] Address [address] [place] [id number] Care Team Providers Care Optical Lathe Operator Name Role Phone SARAY GARCIA Primary Care [...] PART B Feb 27, 2017 PART B [id number] [phone] ARONGUS,GUSTAVO NRY PATIENT MEDICARE (WNR) MEDICARE (M) PART B Feb 27, 2017 PART B [id number] WILGUS,GUSTAVO NRY PATIENT MEDICARE (WNR) MEDICARE (M) PART A Feb 27, 2001 PART A [id number] [phone] WILGUS,HE NRY PATIENT MEDICARE (WNR) MEDICARE (M) PART A Feb 27, 2001 PART A [id number] WILGUS,HE NRY PATIENT Selected Encounter This section includes the information on record at [place] for the Encounter. Date/Time Encounter Type Encounter Description Reason Provider Source Sep 13, 2023 11:30 AM MEASURE BLOOD OXYGEN LEVEL [facility] Nursing (RN / LP) ICD-10-CM G30.9 Alzheimer's disease, unspecified JODI FONG Yg Encounter Template Text not used by [place] Assessments - Encounter Diagnoses This section includes the primary and secondary diagnoses documented for the Encounter. Date/Time Primary/Secondary Diagnosis Diagnosis Name Provider Source Sep 18, 2023 02:38 PM PRIMARY Alzheimer's disease, unspecified [facility] Sep 18, 2023 02:38 PM SECONDARY Dem in oth dis classd elswhr,unsp sev,w/o beh/psych/mood/anx [facility] [place] [place] [facility] Sep 18, 2023 02:38 PM SECONDARY Unspecified atrial fibrillation [facility] Plan of Treatment: Future Appointments (+ 6 months) and Future Tests (+/- 45 days) The Plan of Treatment section includes future care activities for the patient from all [place] [facility]. This section includes future appointments and future orders which are active, pending or scheduled. Future Appointments This section includes appointments that were scheduled to occur 6 months from the date of the Encounter, up to a maximum of 20 appointments. The data comes from all [place] treatment facilities. Appointment Date/Time Appointment Type Appointme nt Facility Name Oct 04, 2023 02:00 PM [facility] [facility] [place] [facility] Oct 04, 2023 03:00 PM AM[place]ULATORY [place] [facility] [place] [facility] Oct 04, 2023 03:30 PM AM[place]ULATORY [place]ICINE [place] [facility] [place] [facility] Oct 04, 2023 04:15 PM AM[place]ULATORY - MEDICINE [place] [facility] [place] [facility] Nov 28, 2023 08:00 AM AMBULATORY - MEDICINE [facility] [place] [facility] Dec 08, 2023 08:00 AM AMBULATORY - MEDICINE [facility] Dec 08, 2023 03:00 PM AMBUL[place]ORY [place] [facility] [facility] Jan 11, 2024 11:25 AM [facility] [place] [facility] Vital Signs: All taken on the encounter date This section contains inpatient and outpatient Vital Signs collected on the date of the Encounter. Date/Time Temperature Pulse Blood Pressure Respiratory Rate SP02 Pain Height Weight Body Mass Index Source Sep 13, 2023 11:30 AM 98.2 66 140/80 16 97 0 [place] [facility] Social History: Smoking Status (Most current) and Tobacco Use (All prior to encounter date) This section includes the most current, and the historical, smoking and tobacco- related health factors from the [place] facility where the Encounter took place. Current Smoking Status This section includes the most current smoking, or tobacco-related health factor, from the [place] facility where the Encounter took place. Date/Time Current Smoking Status Comment Facil ity Dec 14, 2022 12:15 PM VA-TOBACCO NEVER USED [facility] Tobacco Use History This section includes a history of the smoking, or tobacco-related health factors, that were collected on or before the date of the Encounter. The data comes from the [place] facility where the Encounter took place. Date/Time Smoking Status/Tobacco Use Comment F acility Jan 10, 2019 10:51 AM VA-TOBACCO [facility]ED [facility] Advance Directives: All historical and current Section Date Range: From patient's date of to the date document was created. This section includes ALL of a patient's completed or amended [place] Advance and Rescinded Directives. The entries below indicate that a directive exists for the patient, but an actual copy is not included with this document. The data comes from all [place] facilities. Date Advance Directives Provider Source Aug 14, 2020 ADVANCE DIRECTIVE CRISTOPHER BENITEZ Encounter Notes: All associated encounter notes This section contains the clinical notes associated to the Encounter. Date/Time Encounter Note(s) Provider Source Sep 18, 2023 03:14 PM [facility] NOTE: LOCAL TITLE: [facility] POST INFECTION ASSESSMENT NOTE STANDARD TITLE: [facility] NOTE DATE OF NOTE: SEP 18, 2023@15:14 ENTRY DATE: SEP 18, 2023@15:14:24 AUTHOR: RAÚL FONG EXP COSIGNER: URGENCY: STATUS: COMPLETED POST INFECTION ASSESSMENT NOTE Date of Infection: Aug Ton Container Shipper: Jodi Fong RN Type of Infection: Fungal infection Patient Seen in ER: Yes [ ] No [X] Culture Sent: Yes [ ] No [X] Facility Reporting Culture Results: Abx Prescribed: Yes [ ] No [X] Antifungal cream ordered Name of Antibiotic: Antifungal NYSTATIN [id number] UNT/GM CREAM (Status = Active) APPLY A THIN LAYER TOPICALLY TWICE DAILY Ordering Provider: Saray Garcia PRIMARY CARE NURSE (Please check all that apply) Risk Factors Possibly Contributing to Infection: [ ] Surgical Procedure [ ] BPH/Urinary Retention [ ] COPD [ ] Vascular Insufficiency/Edema [ ] Quintana Catheter [ ] Suprapubic Catheter [ ] Intermittent Catheterization [ ] Other Was [place] discharged from inpatient status 48-72 hours prior to infection? Yes [ ] No [X] If yes, where: Infection Resolved: Yes [ ] No [X] Current Status of Patient: [X] Home [ ] Hospital (Please check all that apply) Interventions: [X] F/U Medical Visit [X] PCP Notified [X] PSA Notified [X ] Education was provided to patient and/or family regarding infection/infection control /lalo/ JODI FONG RN [facility] brand marketing coordinator Signed: 09/18/2023 15:17 Receipt Acknowledged By: 09/18/2023 16:22 /es/ [employer] HB INSIDE STEWARD/STEWARDESS 09/18/2023 15:34 /lalo/ SARAY GARCIA RN,MSN,WEALTH MANAGEMENT ADVISOR-C HB NURSE PRACTITIONER CRISTOBAL FONG [facility] Sep 13, 2023 11:30 AM HB NURSING NOTE: LOCAL TITLE: [facility] RN PROGRESS NOTE STANDARD TITLE: HB NURSING NOTE DATE OF NOTE: SEP 13, 2023@11:30 ENTRY DATE: SEP 18, 2023@14:30:18 AUTHOR: RAÚL FONG EXP COSIGNER: URGENCY: STATUS: COMPLETED Nursing Progress Note Active and Recently Outpatient Medications (including Supplies): Active Outpatient Medications Status 1) APIXABAN 2.5MG TAB TAKE ONE TABLET BY MOUTH EVERY 12 ACTIVE HOURS FOR PREVENTION OF BLOOD CLOTS 2) BRIEF,PROTECTIVE SUPER ABS LG ATTENDS USE 1 BRIEF ACTIVE DIRECTED ONCE DAILY NEEDED FOR PERSONAL CARE 3) CARBAMIDE PEROXIDE 6.5% OTIC SOLN INSTILL 5 DROPS ACTIVE INTO THE AFFECTED EAR(S) TWICE DAILY FOR EAR WAX BLOCKAGE 4) CARBOXYMETHYLCELLULOSE NA 0.5% OPH SOLN INSTILL 1 ACTIVE DROP INTO EACH EYE FOUR TIMES DAILY NEEDED FOR DRY EYE 5) CLEANSING CLOTH ATTENDS PKT USE ONE WASHCLOTH ACTIVE (S) DIRECTED ONCE DAILY NEEDED 6) DICLOFENAC NA 1% TOP GEL APPLY 2 GRAMS TOPICALLY FOUR ACTIVE TIMES DAILY NEEDED FOR OSTEOARTHRITIS - USE DOSING CARD PROVIDED IN BOX 7) DIGOXIN 0.125MG TAB TAKE ONE TABLET BY MOUTH EVERY ACTIVE OTHER DAY 8) DOCUSATE NA 100MG CAP TAKE ONE CAPSULE BY MOUTH TWICE ACTIVE DAILY NEEDED FOR CONSTIPATION TO SOFTEN STOOL 9) GLOVE NITRILE MED PFREE NSTERILE TX USE GLOVE(S) ONCE ACTIVE (S) DAILY NEEDED 10) MULTIVITAMIN/MINERALS CHEW TAB CHEW 1 TABLET BY MOUTH ACTIVE ONCE DAILY FOR VITAMIN SUPPLEMENTATION 11) NUTRITION SUPL ENSURE PLUS/SHIVA LIQUID DRINK 1 CAN BY ACTIVE MOUTH ONCE DAILY FOR NUTRITIONAL SUPPLEMENTATION 12) NYSTATIN 022024 UNT/GM CREAM APPLY A THIN LAYER ACTIVE TOPICALLY TWICE DAILY 13) PANTOPRAZOLE NA 40MG EC TAB TAKE ONE TABLET BY MOUTH ACTIVE TWICE DAILY FOR EXCESSIVE PRODUCTION OF STOMACH ACID 14) UNDERPAD,BED 30IN X 36IN PLASTIC BACK USE 1 PAD ACTIVE TOPICALLY ONCE DAILY NEEDED FOR PERSONAL CARE 15) ZINC OXIDE 20% OINT APPLY THIN LAYER TOPICALLY ONCE ACTIVE DAILY NEEDED FOR SKIN IRRITATION Inactive Outpatient Medications Status 1) PREDNISOLONE ACETATE 1% OPH SUSP INSTILL 1 [...] 30 min Problem addressed for this visit: routine assessment, chronic disease management, HTN, Alzheimer's, safety and ?fungal infection. NURSING SUMMARY: Visit made to home for routine assessment, chronic disease management, HTN, Alzheimer's, safety and ?fungal infection. lying in bed upon nurse arrival, CLIENT SUPPORT PROFESSIONAL present for visit and significant other Lakshmi available by phone if needed. Nurse assisted CLIENT SUPPORT PROFESSIONAL in getting up to assess reported area of irritation. Upon assessment was noted to have a red scaly patch on intergluteal cleft. reports itching, ?fungal infection. Caregiver reported to be treating with zinc oxide for over 2 weeks with no effect. PRIMARY CARE NURSE called for VVC. Nystatin cream ordered for from PCP. Nurse called Malena to update on findings and medication information. caregiver will coal picker medication at pharmacy window in [facility], PCP notified of preference. [place] alert and oriented to self, pleasant and cooperative. No c/o pain at this time. Appetite good. Denies constipation. Med compliance reported by caregiver who manages medication. medications reviewed and up to date. No acute findings since last hospital admission for covid 19. all symptoms have resolved. Afebrile. Vet has cardiology follow up on 09/14. No falls, No ER visits and NO hospitalizations Blood Pressure: 140/80 (09/13/2023 11:30) Pulse: 66 (09/13/2023 11:30) Respiration: 16 (09/13/2023 11:30) Temperature: 98.2 F [36.8 C] (09/13/2023 11:30) Pain Score: 0 (09/13/2023 11:30) EXAMINATION: Lungs: Clear Edema: none HR: History of A fib, no s/s noted or reported Bowel/Bladder: Regular bowel and bladder reported. No s/s of UTI. Denies constipation Skin: Newly reported irritated area on intergluteal cleft. Upon assessment area noted to be red scaly patch. [place] reports itching, ?fungal infection. Caregiver reported to be treating with zinc oxide for a while with no effect. PRIMARY CARE NURSE called for VVC. Nystatin cream ordered for from PCP. Home Safety FALLS NO INFECTIONS NO ER/HOSPITALIZATIONS NO Teaching/goals: See nursing summary above Patient verbalizes understanding to above and will call with any concerns or changes in condition. For emergent care call 911. Plan for next visit: Ear irrigation and Covid vaccine booster. Scheduled for 10/01/ JODI FONG, RN [facility] brand marketing coordinator Signed: 09/18/2023 15:14 CRISTOBAL FONG [facility]
--- OUTSIDE RECORDS SUMMARY | 2024-03-07 06:43 | XMS_ITS ---
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 Date/Time Encounter Type Encounter Description Reason Pro vider Source Aug 29, 2023 02:26 PM Outpatient Encounter TELEPHONE CASE MANAGEMENT [place] Encounter Template Text not used by [place] Plan of Treatment: Future Appointments (+ 6 months) and Future Tests (+/- 45 days) The Plan of Treatment section includes future care activities for the patient from all [place] treatmentfacilities. This section includes future appointments and future orders which are active, pending or scheduled. Future Appointments This section includes appointments that were scheduled to occur 6 months from the date of the Encounter, up to a maximum of 20 appointments. The data comes from all [place] treatment facilities. Appointment Date/Time Appointment Type Appointme nt Facility Name Oct 04, 2023 02:00 PM AMBULATORY - [place]IC[place] [facility] [place] [facility] Oct 04, 2023 03:00 PM AMBULATORY - MEDICINE [facility] [place] [facility] Oct 04, 2023 03:30 PM AMBULATORY - MEDICINE [facility] [facility] Oct 04, 2023 04:15 PM AMBULATORY - MEDICINE [place] [facility] Nov 28, 2023 08:00 AM AMBULATORY - MEDICINE [facility] [facility] Dec 08, 2023 08:00 AM AMBULATORY - MEDICINE [facility] Dec 08, 2023 03:00 PM AMBULATORY - REHAB MEDICIN [place] [facility] [place] [facility] Jan 11, 2024 11:25 AM AMBULATORY - [facility] Social History: Smoking Status (Most current) and Tobacco Use (All prior to encounter date) This section includes the most current, and the historical, smoking and tobacco- related health factors from the [place] facility where the Encounter took place. Current Smoking Status This section includes the most current smoking, or tobacco-related health factor, from the [place] facility where the Encounter took place. Date/Time Current Smoking Status Phill varner Dec 14, 2022 12:15 PM [facility] Tobacco Use History This section includes a history of the smoking, or tobacco-related health factors, that were collected on or before the date of the Encounter. The data comes from the [place] facility where the Encounter took place. Date/Time Smoking Status/Tobacco Use Comment F acility Jan 10, 2019 10:51 AM VA-TOBACCO NEVER USED [facility] Advance Directives: All historical and current Section Date Range: From patient's date of to the date document was created. This section includes ALL of a patient's completed or amended [place] Advance and Rescinded Directives. The entries below indicate that a directive exists for the patient, but an actual copy is not included with this document. The data comes from all [place] facilities. Date Advance Directives Provider Source Aug 14, 2020 ADVANCE DIRECTIVE BENITEZCRISTOPHER Encounter Notes: All associated encounter notes This section contains the clinical notes associated to the Encounter. Date/Time Encounter Note(s) Provider Source Aug 29, 2023 02:26 PM TRANSFER SUMMARIZATION NOTE: LOCAL TITLE: HEALTH SERVICES DIRECTOR/OCC/HOSPITAL NOTIFICATION NOTE STANDARD TITLE: TRANSFER SUMMARIZATION NOTE DATE OF NOTE: AUG 29, 2023@14:26 ENTRY DATE: AUG 29, 2023@14:28:01 AUTHOR: MARJORIE WYNN EXP COSIGNER: URGENCY: STATUS: COMPLETED SUBJECT: EOC 08/26 Call from case management rn Samreen at [facility]. in need of rehab. She is wondering if he is eligible for [place]. Notified Samreen that [place] was not administratively eligible for VA rehab or LTC and if he went to a SNF, it would fall to his own private insurance. /lalo/ Marjorie MARIE,RN,[facility] TRANSFER/TRAVELING COORDINATOR Signed: 08/29/2023 14:29 MARJORIE WYNN [facility]
--- OUTSIDE RECORDS SUMMARY | 2024-03-07 06:43 | XMS_ITS ---
Author Name [facility] Address [address] [place] [address] Care Team Providers Care Consultant [employer]. 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 Date/Time Encounter Type Encounter Description Reason Pro vider Source Oct 03, 2023 09:34 AM Outpatient Encounter [facility] PHYSIC EXTND(TAPPER BALANCE WHEEL SCREW HOLE,NAIL GALVANIZER,PA) I[facility] Encounter Template Text not used by [place] Plan of Treatment: Future Appointments (+ 6 months) and Future Tests (+/- 45 days) The Plan of Treatment section includes future care activities for the patient from all [place] treatmentfacilities. This section includes future appointments and future orders which are active, pending or scheduled. Future Appointments This section includes appointments that were scheduled to occur 6 months from the date of the Encounter, up to a maximum of 20 appointments. The data comes from all [place] treatment facilities. Appointment Date/Time Appointment Type Appointme nt Facility Name Oct 04, 2023 02:00 PM AMBULATORY - [place] [facility] Oct 04, 2023 03:00 PM [place] [facility] Oct 04, 2023 03:30 PM [place] [facility] Oct 04, 2023 04:15 PM [place] [facility] Nov 28, 2023 08:00 AM [place] [facility] Dec 08, 2023 08:00 AM [facility] Dec 08, 2023 03:00 PM [facility] [facility] Jan 11, 2024 11:25 AM AMBULATORY - MEDICINE [facility] Vital Signs: All taken on the encounter date This section contains inpatient and outpatient Vital Signs collected on the date of the Encounter. Date/Time Temperature Pulse Blood Pressure Respiratory Rate SP02 Pain Height Weight Body Mass Index Source Oct 03, 2023 01:00 PM 97.3 74 110/60 16 97 0 [place] [facility] Social History: Smoking Status (Most current) and Tobacco Use (All prior to encounter date) This section includes the most current, and the historical, smoking and tobacco- related health factors from the [place] facility where the Encounter took place. Current Smoking Status This section includes the most current smoking, or tobacco-related health factor, from the [place] facility where the Encounter took place. Date/Time Current Smoking Status Comment Frederick ity Dec 14, 2022 12:15 PM VA-TOBACCO NEVER USED [facility] Tobacco Use History This section includes a history of the smoking, or tobacco-related health factors, that were collected on or before the date of the Encounter. The data comes from the [place] facility where the Encounter took place. Date/Time Smoking Status/Tobacco Use Comment F acility Jan 10, 2019 10:51 AM VA-TOBACCO NEVER USED [facility] Advance Directives: All historical and current Section Date Range: From patient's date of to the date document was created. This section includes ALL of a patient's completed or amended [place] Advance and Rescinded Directives. The entries below indicate that a directive exists for the patient, but an actual copy is not included with this document. The data comes from all [place] facilities. Date Advance Directives Provider Source Aug 14, 2020 ADVANCE DIRECTIVE CRISTOPHER BENITEZ Encounter Notes: All associated encounter notes This section contains the clinical notes associated to the Encounter. Date/Time Encounter Note(s) Provider Source Oct 03, 2023 09:34 AM [facility] NOTE: LOCAL TITLE: [facility] INTERDISCIPLINARY NOTE STANDARD TITLE: [facility] NOTE DATE OF NOTE: OCT 03, 2023@09:34 ENTRY DATE: OCT 03, 2023@09:34:58 AUTHOR: RAÚL SUTTON EXP COSIGNER: URGENCY: STATUS: COMPLETED [facility] INTERDISCIPLINARY NOTE Has ADDENDA INTERDISCIPLINARY NOTE Allergies: LATEX GLOVE Risk Assessment Level 1 Low risk DNR: No Advanced Directive Completed: Yes Family/Community Support: Girlfriend Lakshmi Mental Status: Dx of Dementia PLAN OF CARE 90 day review Dates covered by plan of care from Sep to Dec Primary Care Provider: Saray Garcia NP PROBLEM LIST: Active problems - Computerized Problem List is the source for the followin. History of SARS-CoV-2 2. Long-term current use of anticoagulant 3. Atrial fibrillation 4. Exposure to potentially hazardous chemical 5. Lipoma 6. Alzheimer's disease 7. Hiccups 8. Anemia 9. White matter disease 10. Disorder of thyroid gland subclinical hypothyroid 8/15/23 11. Cognitive impairment 12. Actinic keratosis 13. [...] Cataract R 19. HL - Hearing loss [facility] Medications: Active Outpatient Medications (including Supplies): Active Outpatient Medications [...] ONCE DAILY FOR NUTRITIONAL SUPPLEMENTATION 13) NYSTATIN 485639 UNT/GM CREAM APPLY A THIN LAYER ACTIVE [...] ONCE ACTIVE DAILY NEEDED 17 Total Medications Gender Specific Health Assessment: BPH and Erectile dysfunction Fall Risk: [facility] 10 Fall Risk Assessment Tool Required Core Elements Assess one point for each core element yes. Information may be gathered from medical record, assessment and if applicable, the patient caregiver. Beyond protocols listed below, scoring should be based on your clinical judgment. 1-Age 65+ 1-Diagnosis (3 or more co-existing) Includes only documented medical diagnosis 0-Prior history of falls within 3 months An unintentional change in position resulting in coming to rest on the ground or at a lower level. 1-Incontinence Inability to make it to the bathroom or commode in a timely manner. Includes frequency, urgency, and/or nocturia 0-Visual impairment Includes but not limited to, macular degeneration, diabetic retinopathy, visual field loss, age related changes, decline in visual acuity, accommodation, glare tolerance, depth perception, and night vision or not wearing prescribed glasses or having the correct prescription 1-Impaired functional mobility May include patients who need help with IADLs or ADLs or have gait or transfer problems, arthritis, pain, fear of falling, foot problems, impaired sensation, impaired coordination or improper use of assistive devices. 0-Environmental hazards May include but not limited to, poor illumination, equipment tubing, inappropriate footwear, pets, hard to reach items, floor surfaces that are uneven or cluttered, or outdoor entry and exits. 0-[facility] (4 or more prescriptions - any type) All PRESCRIPTIONS including prescriptions for OTC meds. Drugs highly associated with fall risk include but not limited to, sedatives, anti-depressants, tranquilizers, narcotics, antihypertensive, cardiac meds, corticosteroids, anti- anxiety drugs, anticholinergic drugs, and hypoglycemic drugs. 0-Pain affecting level of function Pain often affects an individual's desire or ability to move or pain can be a factor in depression or compliance with safety recommendations. 1-Cognitive Impairment Could include patients with dementia, Alzheimer's or stroke patients or patients who are confused, use poor judgment, have decreased comprehension, impulsivity, memory deficits. Consider patients ability to adhere to the plan of care. Total: 5- A score of 4 or more is considered at risk for falling. Created by: [facility] Functional Limitations Use of assistive devices walker hearing loss bowel/bladder incontinence Nutritional Requirements: Diet: processing mgr VISIT FREQUENCY RN 1 to 4 every 3 to 6 weeks PRN [facility] RN visits for changes in Health Status Assess: vital signs to include pain assessment, pain control response to medications, bowel and bladder function, s/s of deterioration and management of complications related to disease process, cardiopulmonary status, effects of comfort measures, psychosocial status, and neurological status PROBLEM ADDRESED 1. PROBLEM ADDRESSED: Incontinence GOAL: Reduce episodes of incontinence and avoid skin breakdown related to incontinence Interventions: Toileting schedule, timely incontinence care, use of barrier cream for prevention 2. PROBLEM ADDRESSED: Risk for fall GOAL: Remain safe at home free of falls, patient and caregiver will continue to implement strategies to increase safety and prevent falls at home. Interventions: Promote use of walker when ambulating, to wait for assistance for transfers, and keep home free from clutter. 3. PROBLEM ADDRESSED: Cognitive impairment GOAL: promote safety and prevent harm, optimize patient cognition and functional status, and educate patients and families about strategies to manage acute confusion. Interventions: Utilize clear communication; address patient by name, speak slowly with simple directions and gestures; provide time for patient response, listen carefully and maintain eye contact. Provide environmental adaptations to support cognitive function and safety; consider sensory exposure, hearing ability and distractions. Education family on caring for elders with cognitive impairment. 4. PROBLEM ADDRESSED: A Fib GOAL: Dwight will maintain his cardiac output as evidenced by cardiac rhythm WNL of 60-100 beats per min and track and record (4-5 times a week) this quarter. Interventions: - Nursing to monitor vital signs at each visit - Nursing and to monitor and report chest pain, chest pressure or palpitations. - to seek emergent medical attention for changed or lasting chest pain - Take medications as prescribed Skilled Interventions: venipuncture (include test ordered and frequency): PRN as ordered oxygen saturation (frequency):PRN cognition assessment; safety concerns Men's health concerns: preventative care primary care Education: pain/symptom control medication administration/side effects appropriate skin care emergency management incontinence management fluid intake s/s disease progression and complications safety measures Individualized Outcomes: pain and symptoms of physical discomfort will remain at acceptable level patient/family will demonstrate ability to perform procedures from plan of care to remain safe in the home patient will receive adequate care from caregiver to meet needs patient will maintain intact skin integrity or appropriate wound treatment patient/caregiver will verbalize/demonstrate management of incontinence patient will take medications as per MD orders patient will recognize changes that require reporting to [facility] staff patient will be safe in home with environment adjusted to accommodate decrease in cognition and/or increase in disease progression Involvement of additional [facility] team members: N.P. assess and attach specific plan SW assess and attach specific plan RD assess and attach specific plan O.T. assess and attach specific plan request pharmacy review of medications Discharge Plan when able to remain in community safely with assistance of services and or family Per [facility] Discharge Policy Comments: This is an 88 year old [employer] period of service [place], treatment and prescription copay exempt. [place] 10% for impaired hearing. Alert and oriented x1, forgetful with diagnosis of Alzheimer's. Dwight HCP is his girlfriend Lakshmi and she also takes care of her elderly mother. Dwight has INTERNATIONAL ACCOUNT REPRESENTATIVE 10 hrs./week and respite 9 hrs./week. had a hospital admission on August 27, for covid 19 and his A fib was out of control discharged on Digoxin 0.125 mg tab. was discharged home with services on 09/01/23. was admitted to [facility] serviced by on 09/02/23 with plan for OT and PT. was seen by sap bi architect on 09/14 and digoxin was continued. During visit on 09/12 was noted to have fungal infection to intergluteal cleft. Vet was prescribed antifungal cream, this has since improved. During this IDT caregiver does report increase in incontinence Dwight with complicated needs and new diagnosis which required interdisciplinary team services. /es/ JODI SUTTON, RN [facility] apparel sales associate Signed: 10/09/2023 14:42 Receipt Acknowledged By: 10/09/2023 14:45 /es/ KEAGAN MARINELLI RN, BSN [facility] EMPLOYMENT EVALUATOR/CASE MANAGER 10/09/2023 14:50 /es/ SARAY GARCIA RN,MSN,SHADE CLOTH FINISHER-C HB NURSE PRACTITIONER 10/10/2023 11:29 /es/ Char Cates RN [facility] apparel sales associate 10/10/2023 07:30 /es/ FABI BLEDSOE [facility] University Counselor 10/09/2023 17:40 /es/ Lacie Orlando [facility] Occupational Therapist 10/10/2023 09:54 /es/ DON DIAZ STAFF DIETITIAN 10/09/2023 16:34 /es/ Marly AGUIRRE [facility] apparel sales associate for ANGELLA MONIQUE 10/10/2023 11:16 /es/ FRANK PIZANO [facility] Clinical Pharmacist Practitioner 10/09/2023 ADDENDUM STATUS: COMPLETED Will continue to follow every 6-12 months for routine medical care and as needed for changes in condition. /es/ SARAY GARCIA RN,MSN,SHADE CLOTH FINISHER-C HB NURSE PRACTITIONER Signed: 10/09/2023 14:50 10/09/2023 ADDENDUM STATUS: COMPLETED No [facility] rehab needs identified at this time; will follow up with Dwight annually and as need arises for change in function. /es/ Lacie Orlando [facility] Occupational Therapist Signed: 10/09/2023 17:40 10/10/2023 ADDENDUM STATUS: COMPLETED University Counselor is available for psychosocial support as needed. Annual assessment to be conducted April 2024 unless otherwise indicated. /es/ FABI BLEDSOE [facility] University Counselor Signed: 10/10/2023 07:32 10/10/2023 ADDENDUM STATUS: COMPLETED Will continue to review medication regimen quarterly. /lalo/ FRANK PIZANO [facility] Clinical Pharmacist Practitioner Signed: 10/10/2023 11:17 CRISTOBAL SUTTON [place] [facility]
--- OUTSIDE RECORDS SUMMARY | 2024-03-07 06:43 | XMS_ITS ---
Author Name [facility] [place] Organization [facility] [place] Address [address] [place] [id number] Care Team Providers Care Bed Rubber Name Role Phone RAMONA HUNTER Primary Care [...] PART B Feb 27, 2017 PART B [id number] ARONGUS,GUSTAVO NRY PATIENT MEDICARE (WNR) MEDICARE (M) PART B Feb 27, 2017 PART B [id number] [phone] WILGUS,GUSTAVO NRY PATIENT MEDICARE (WNR) MEDICARE (M) PART A Feb 27, 2001 PART A [id number] WILGUS,HE NRY PATIENT MEDICARE (WNR) MEDICARE (M) PART A Feb 27, 2001 PART A [id number] [phone] WILGUS,HE NRY PATIENT Selected Encounter This section includes the information on record at [place] for the Encounter. Date/Time Encounter Type Encounter Description Reason Provider Source July 10, 2023 12:30 PM MEASURE BLOOD OXYGEN LEVEL [facility] Nursing (RN / LP) ICD-10-CM G30.9 Alzheimer's disease, unspecified JODI SUTTON Yg Encounter Template Text not used by [place] Assessments - Encounter Diagnoses This section includes the primary and secondary diagnoses documented for the Encounter. Date/Time Primary/Secondary Diagnosis Diagnosis Name Provider Source July 11, 2023 08:48 PM PRIMARY Alzheimer's disease, unspecified [facility] July 11, 2023 08:48 PM SECONDARY Dem in oth dis classd elswhr,unsp sev,w/o beh/psych/mood/anx [facility] [place] [place] [facility] July 11, 2023 08:48 PM SECONDARY Unspecified atrial fibrillation [facility] Plan of Treatment: Future Appointments (+ 6 months) and Future Tests (+/- 45 days) The Plan of Treatment section includes future care activities for the [facility] This section includes future appointments and future orders which are active, pending or scheduled. Future Appointments This section includes appointments that were scheduled to occur 6 months from the date of the Encounter, up to a maximum of 20 appointments. The data comes from all [place] treatment facilities. Appointment Date/Time Appointment Type Appointme nt Facility Name July 11, 2023 01:45 PM AMBULATORY - MEDICINE [place] [facility] [place] [facility] Oct 04, 2023 02:00 PM AMBULATORY - REHAB MEDICIN E [place] [facility] [place] [facility] Oct 04, 2023 03:00 PM AMBULATORY - MEDICINE [place] [facility] Oct 04, 2023 03:30 PM AMBULATORY - MEDICINE [place] [facility] Oct 04, 2023 04:15 PM AMBULATORY - MEDICINE [place] [facility] Nov 28, 2023 08:00 AM AMBULATORY - MEDICINE [place] [facility] Dec 08, 2023 08:00 AM AMBULATORY - MEDICINE [facility] Dec 08, 2023 03:00 PM [facility] Vital Signs: All taken on the encounter date This section contains inpatient and outpatient Vital Signs collected on the date of the Encounter. Date/Time Temperature Pulse Blood Pressure Respiratory Rate SP02 Pain Height Weight Body Mass Index Source July 10, 2023 12:30 PM 96.7 64 140/70 16 99 0 [facility] Social History: Smoking Status (Most current) and [...] 14, 2022 12:15 PM VA-TOBACCO NEVER USED [facility] Tobacco Use History This section includes a history of the smoking, or tobacco-related health factors, that were collected on or before the date of the Encounter. The data comes from the [place] facility where the Encounter took place. Date/Time Smoking Status/Tobacco Use Comment F acility Jan 10, 2019 10:51 AM VA-TOBACCO NEVER USED [facility] Advance Directives: All historical and current Section Date Range: From patient's date of to the date document was created. This section includes ALL of a patient's completed or amended [place] Advance and Rescinded Directives. The entries below [...] Encounter. Date/Time Encounter Note(s) Provider Source July 20, 2023 02:34 PM ADDENDUM: LOCAL TITLE: Addendum STANDARD TITLE: ADDENDUM DATE OF NOTE: JULY 20, 2023@14:34:27 ENTRY DATE: JULY 20, 2023@14:34:28 AUTHOR: DARRYN,LEBRON JIMMY EXP COSIGNER: URGENCY: STATUS: COMPLETED Kalyan Keys, I worked on educating the caregiver last visit on the need for fluids and that electroyles with inadequate fluids will not properly hydrate the . Spoke with caregiver today to reinforce the concept and the need for fluid intake and strategies for fluid intake such as adding sweeteners/ flavored water. Caregiver resistient to my advice and stated an outside provider recommends electrolytes. I am not familiar with anything on our nutrition formulary that is an electrolyte additive. If you feel it is appropriate to submit a non-formulary requet for electroylte additives for this please do so. /es/ LEBRON CATES RD, [place] REGISTERED DIETITIAN Signed: 07/20/2023 14:38 Receipt Acknowledged By: 07/21/2023 14:19 /es/ JODI SUTTON RN HBVICENTE gin operator --- Original Document --- 07/10/23 GIOVANNY RN PROGRESS NOTE: Nursing Progress Note [...] WASHCLOTH ACTIVE DIRECTED ONCE DAILY NEEDED 6) DICLOFENAC NA 1% TOP GEL APPLY 2 GRAMS TOPICALLY FOUR ACTIVE TIMES DAILY NEEDED FOR OSTEOARTHRITIS - USE DOSING CARD PROVIDED IN BOX 7) GLOVE NITRILE MED PFREE NSTERILE TX USE GLOVE(S) ONCE ACTIVE DAILY NEEDED 8) NUTRITION SUPL ENSURE PLUS/SHIVA LIQUID DRINK 1 CAN BY ACTIVE MOUTH ONCE DAILY FOR NUTRITIONAL SUPPLEMENTATION 9) PANTOPRAZOLE NA 40MG EC TAB TAKE ONE TABLET BY MOUTH ACTIVE TWICE DAILY FOR EXCESSIVE PRODUCTION OF STOMACH ACID 10) UNDERPAD,BED 30IN X 36IN PLASTIC BACK USE 1 PAD ACTIVE TOPICALLY ONCE DAILY NEEDED FOR PERSONAL CARE 11) ZINC OXIDE 20% OINT APPLY THIN LAYER TOPICALLY ONCE ACTIVE DAILY NEEDED FOR SKIN IRRITATION Active Non-VA Medications Status 1) Non-VA DOCUSATE NA 100MG CAP 100MG BY MOUTH ONCE ACTIVE DAILY NEEDED 2) Non-VA METOCLOPRAMIDE HCL 10MG TAB 10MG BY MOUTH ACTIVE THREE TIMES DAILY NEEDED 13 Total Medications MEDICATION REVIEW Medication review completed [...] 45 min Problem addressed for this visit: Dementia, Low BP , dizziness follow up, compression measurement NURSING SUMMARY: Visit made to home for Dementia, Low BP , dizziness follow up, and compression measurement. [place] sitting in recliner upon nurse arrival, TURKISH RUBBER present and girlfriend Lakshmi. VSS. No c/o pain reported. per caregiver has been walking more and has not reported any dizziness for a few days. [place] having PT visit later on today. Per caregiver PT will try to bring outside for a walk. Caregiver stated that since is doing better she will try to bring to appointment tomorrow herself. Nurse obtained measurement for compression socks as ordered. Consult placed for compressions. Nurse reviewed education on fall prevention and BP monitoring. [place] participating in telehealth. Caregiver inquired about possibility for chewable multivitamin prescription as has a hard time with the current tablets. Will add RUBY SOFTWARE DEVELOPER for follow up Caregiver also inquiring about follow up with RD regarding availability of electrolyte drinks through the [place]. Will add RD No falls, NO ER visits and No Hospitalizations reported. Blood Pressure: 140/70 Pulse: 64 Respiration: 16 Temperature: 96.7 Pain Score: 0 EXAMINATION: Lungs: Clear Edema: none noted HR: Regular Bowel/Bladder: regular bowel and bladder reported Skin: intact Home Safety FALLS NO INFECTIONS NO ER/HOSPITALIZATIONS NO Teaching/goals: See nursing summary above Patient verbalizes understanding to above and will call with any concerns or changes in condition. For emergent care call 911. Plan for next visit: scheduled for 08/13 /lalo/ JODI SUTTON RN HB gin operator Signed: 07/11/2023 20:49 07/11/2023 ADDENDUM STATUS: COMPLETED RUBY SOFTWARE DEVELOPER - Caregiver inquired about possibility for chewable multivitamin prescription as has a hard time with the current tablets. RD - Caregiver also inquiring about follow up with RD regarding availability of electrolyte drinks through the [place]. /lalo/ JODI SUTTON RN HB gin operator Signed: 07/11/2023 21:07 Receipt Acknowledged By: 07/12/2023 09:39 /lalo/ RAMONA HUNTER RN,MSN,BLUEPRINT REPRODUCER-C [facility] NURSE PRACTITIONER 07/20/2023 14:30 /lalo/ LEBRON CATES RD, LDN REGISTERED DIETITIAN LEBRON CATES [place] [facility] [place] [facility] July 11, 2023 09:06 PM ADDENDUM: LOCAL TITLE: Addendum STANDARD TITLE: ADDENDUM DATE OF NOTE: JULY 11, 2023@21:06:29 ENTRY DATE: JULY 11, 2023@21:06:30 AUTHOR: RAÚL SUTTON COSIGNER: URGENCY: STATUS: COMPLETED RUBY SOFTWARE DEVELOPER - Caregiver inquired about possibility for chewable multivitamin prescription as has a hard time with the current tablets. RD - Caregiver also inquiring about follow up with RD regarding [facility]. /es/ JODI SUTTON RN [facility] gin operator Signed: 07/11/2023 21:07 Receipt Acknowledged By: 07/12/2023 09:39 /es/ RAMONA HUNTER RN,MSN,BLUEPRINT REPRODUCER-C [facility] NURSE PRACTITIONER 07/20/2023 14:30 /es/ LEBRON CATES RD, LDN REGISTERED DIETITIAN --- Original Document --- 07/10/23 GIOVANNY RN PROGRESS NOTE: Nursing Progress Note [...] WASHCLOTH ACTIVE DIRECTED ONCE DAILY NEEDED 6) DICLOFENAC NA 1% TOP GEL APPLY 2 GRAMS TOPICALLY FOUR ACTIVE TIMES DAILY NEEDED FOR OSTEOARTHRITIS - USE DOSING CARD PROVIDED IN BOX 7) GLOVE NITRILE MED PFREE NSTERILE TX USE GLOVE(S) ONCE ACTIVE DAILY NEEDED 8) NUTRITION SUPL ENSURE PLUS/SHIVA LIQUID DRINK 1 CAN BY ACTIVE MOUTH ONCE DAILY FOR NUTRITIONAL SUPPLEMENTATION 9) PANTOPRAZOLE NA 40MG EC TAB TAKE ONE TABLET BY MOUTH ACTIVE TWICE DAILY FOR EXCESSIVE PRODUCTION OF STOMACH ACID 10) UNDERPAD,BED 30IN X 36IN PLASTIC BACK USE 1 PAD ACTIVE TOPICALLY ONCE DAILY NEEDED FOR PERSONAL CARE 11) ZINC OXIDE 20% OINT APPLY THIN LAYER TOPICALLY ONCE ACTIVE DAILY NEEDED FOR SKIN IRRITATION Active Non-VA Medications Status 1) Non-VA DOCUSATE NA 100MG CAP 100MG BY MOUTH ONCE ACTIVE DAILY NEEDED 2) Non-VA METOCLOPRAMIDE HCL 10MG TAB 10MG BY MOUTH ACTIVE THREE TIMES DAILY NEEDED 13 Total Medications MEDICATION REVIEW Medication review completed [...] in patient's home at time of visit. [place] identified by: Full Name, Address, Facial Recognition Length of visit in home: 45 min Problem addressed for this visit: Dementia, Low BP , dizziness follow up, compression measurement NURSING SUMMARY: Visit made to home for Dementia, Low BP , dizziness follow up, and compression measurement. [place] sitting in recliner upon nurse arrival, TURKISH RUBBER present and girlfriend Lakshmi. VSS. No c/o pain reported. per caregiver has been walking more and has not reported any dizziness for a few days. having PT visit later on today. Per caregiver PT will try to bring outside for a walk. Caregiver stated that since is doing better she will try to bring to appointment tomorrow herself. Nurse obtained measurement for compression socks as ordered. Consult placed for compressions. Nurse reviewed education on fall prevention and BP monitoring. [place] participating in telehealth. Caregiver inquired about possibility for chewable multivitamin prescription as has a hard time with the current tablets. Will add RUBY SOFTWARE DEVELOPER for follow up Caregiver also inquiring about follow up with RD regarding availability of electrolyte drinks through the [place]. Will add RD No falls, NO ER visits and No Hospitalizations reported. Blood Pressure: 140/70 Pulse: 64 Respiration: 16 Temperature: 96.7 Pain Score: 0 EXAMINATION: Lungs: Clear Edema: none noted HR: Regular Bowel/Bladder: regular bowel and bladder reported Skin: intact Home Safety FALLS NO INFECTIONS NO ER/HOSPITALIZATIONS NO Teaching/goals: See nursing summary above Patient verbalizes understanding to above and will call with any concerns or changes in condition. For emergent care call 911. Plan for next visit: scheduled for 08/13/ JODI SUTTON RN [facility] gin operator Signed: 07/11/2023 20:49 CRISTOBAL SUTTON [facility] July 10, 2023 12:30 PM [facility] NURSING NOTE: LOCAL TITLE: [facility] RN PROGRESS NOTE STANDARD TITLE: [facility] NURSING NOTE DATE OF NOTE: JULY 10, 2023@12:30 ENTRY DATE: JULY 11, 2023@20:13:48 AUTHOR: RAÚL SUTTON EXP COSIGNER: URGENCY: STATUS: COMPLETED [facility] RN PROGRESS NOTE Has ADDENDA Nursing Progress [...] WASHCLOTH ACTIVE DIRECTED ONCE DAILY NEEDED 6) DICLOFENAC NA 1% TOP GEL APPLY 2 GRAMS TOPICALLY FOUR ACTIVE TIMES DAILY NEEDED FOR OSTEOARTHRITIS - USE DOSING CARD PROVIDED IN BOX 7) GLOVE NITRILE MED PFREE NSTERILE TX USE GLOVE(S) ONCE ACTIVE DAILY NEEDED 8) NUTRITION SUPL ENSURE PLUS/SHIVA LIQUID DRINK 1 CAN BY ACTIVE MOUTH ONCE DAILY FOR NUTRITIONAL SUPPLEMENTATION 9) PANTOPRAZOLE NA 40MG EC TAB TAKE ONE TABLET BY MOUTH ACTIVE TWICE DAILY FOR EXCESSIVE PRODUCTION OF STOMACH ACID 10) UNDERPAD,BED 30IN X 36IN PLASTIC BACK USE 1 PAD ACTIVE TOPICALLY ONCE DAILY NEEDED FOR PERSONAL CARE 11) ZINC OXIDE 20% OINT APPLY THIN LAYER TOPICALLY ONCE ACTIVE DAILY NEEDED FOR SKIN IRRITATION Active Non-VA Medications Status 1) Non-VA DOCUSATE NA 100MG CAP 100MG BY MOUTH ONCE ACTIVE DAILY NEEDED 2) Non-VA METOCLOPRAMIDE HCL 10MG TAB 10MG BY MOUTH ACTIVE THREE TIMES DAILY NEEDED 13 Total Medications MEDICATION REVIEW Medication review completed [...] in patient's home at time of visit. [place] identified by: Full Name, Address, Facial Recognition Length of visit in home: 45 min Problem addressed for this visit: Dementia, Low BP , dizziness follow up, compression measurement NURSING SUMMARY: Visit made to home for Dementia, Low BP , dizziness follow up, and compression measurement. sitting in recliner upon nurse arrival, TURKISH RUBBER present and girlfriend Lakshmi. VSS. No c/o pain reported. per caregiver has been walking more and has not reported any dizziness for a few days. [place] having PT visit later on today. Per caregiver PT will try to bring outside for a walk. Caregiver stated that since is doing better she will try to bring to appointment tomorrow herself. Nurse obtained measurement for compression socks as ordered. Consult placed for compressions. Nurse reviewed education on fall prevention and BP monitoring. participating in telehealth. Caregiver inquired about possibility for chewable multivitamin prescription as has a hard time with the current tablets. Will add RUBY SOFTWARE DEVELOPER for follow up Caregiver also inquiring about follow up with RD regarding [facility]. Will [facility] No falls, NO ER visits and No Hospitalizations reported. Blood Pressure: 140/70 Pulse: 64 Respiration: 16 Temperature: 96.7 Pain Score: 0 EXAMINATION: Lungs: Clear Edema: none noted HR: Regular Bowel/Bladder: regular bowel and bladder reported Skin: intact Home Safety FALLS NO INFECTIONS NO ER/HOSPITALIZATIONS NO Teaching/goals: See nursing summary above Patient verbalizes understanding to above and will call with any concerns or changes in condition. For emergent care call 911. Plan for next visit: scheduled for 08/13 /lalo/ FLORI MIDDLETON gin operator Signed: 07/11/2023 20:49 07/11/2023 ADDENDUM STATUS: COMPLETED RUBY SOFTWARE DEVELOPER - Caregiver inquired about possibility for chewable multivitamin prescription as has a hard time with the current tablets. RD - Caregiver also inquiring about follow up with RD regarding availability of [facility]. /bettye SUTTON RN VICENTE gin operator Signed: 07/11/2023 21:07 Receipt Acknowledged By: 07/12/2023 09:39 /lalo/ RAMONA HUNTER RN,MSN,BLUEPRINT REPRODUCER-C [facility] NURSE PRACTITIONER 07/20/2023 14:30 /lalo/ LEBRON CATES RD, [place] REGISTERED DIETITIAN 07/20/2023 ADDENDUM STATUS: COMPLETED Kalyan Keys I worked on educating the caregiver last visit on the need for fluids and that electroyles with inadequate fluids will not properly hydrate the . Spoke with caregiver today to reinforce the concept and the need for fluid intake and strategies for fluid intake such as adding sweeteners/ flavored water. Caregiver resistient to my advice and stated an outside provider recommends electrolytes. I am not familiar with anything on our nutrition formulary that is an electrolyte additive. If you feel it is appropriate to submit a non-formulary requet for electroylte additives for this please do so. /lalo/ LEBRON CATES RD, LDN REGISTERED DIETITIAN Signed: 07/20/2023 14:38 Receipt Acknowledged By: * AWAITING SIGNATURE * JODI SUTTON,CRISTOBAL CHAPMAN [facility]
--- OUTSIDE RECORDS SUMMARY | 2024-03-07 06:43 | XMS_ITS | Encounter Summary ---
Author Name [facility] [place] [facility] [place] Address [address] [place] [address] Care Team Providers Care Expressive Music Therapist Name Role Phone RAMONA HUNTER Primary Care [...] PART B Feb 27, 2017 PART B [id number] REJI,GUSTAVO NRY PATIENT MEDICARE (WNR) MEDICARE (M) PART B Feb 27, 2017 PART B [id number] REJI,GUSTAVO NRY PATIENT MEDICARE (WNR) MEDICARE (M) PART A Feb 27, 2001 PART A [id number] WILGUS,HE NRY PATIENT MEDICARE (WNR) MEDICARE (M) PART A Feb 27, 2001 PART A [id number] GUSTAVO MENDOZA PATIENT Selected Encounter This section includes the information on record at [place] for the Encounter. Date/Time Encounter Type Encounter Description Reason Provider Source Oct 04, 2023 03:00 PM OFF/OP CNSLTJ NEW/EST LOW 30 OTOLARYNGOLOGY/EN T ICD-10-CM H90.3 Sensorineural hearing loss, bilateral DONNAROSINA Freitas R IHE Encounter Template Text not used by [place] Assessments - Encounter Diagnoses This section includes the primary and secondary diagnoses documented for the Encounter. Date/Time Primary/Secondary Diagnosis Diagnosis Name Provider Source Oct 04, 2023 05:17 PM PRIMARY Sensorineural hearing loss, bilateral ROSINA THOMPSON R [place] [facility] Oct 04, 2023 05:17 PM SECONDARY Impacted cerumen, bilateral ROSINA THOMPSON R [place] [facility] [place] [facility] Plan of Treatment: Future Appointments (+ 6 months) and Future Tests (+/- 45 days) The Plan of Treatment section includes future care activities for the patient [facility] [place] [facility] This section includes future appointments and future orders which are active, pending or scheduled. Future Appointments This section includes appointments that were scheduled to occur 6 months from the date of the Encounter, up to a maximum of 20 appointments. The data comes from all [place] treatment facilities. Appointment Date/Time Appointment Type Appointme nt Facility Name Nov 28, 2023 08:00 AM AMBULATORY - MEDICINE [facility] Dec 08, 2023 08:00 AM [facility] Dec 08, 2023 03:00 PM [facility] Jan 11, 2024 11:25 AM AMBULATORY - [facility]IC[facility] Vital Signs: All taken on the encounter date This section contains inpatient and outpatient Vital Signs collected on the date of the Encounter. Date/Time Temperature Pulse Blood Pressure Respiratory Rate SP02 Pain Height Weight Body Mass Index Source Oct 04, 2023 02:53 PM 97.2 81 124/78 16 98 0 184.5 [facility] Social History: Smoking Status (Most current) [...] 14, 2022 12:15 PM VA-TOBACCO NEVER USED [facility] Tobacco Use History This section includes a history of the smoking, or tobacco-related health factors, that were collected on or before the date of the Encounter. The data comes from the [place] facility where the Encounter took place. Date/Time Smoking Status/Tobacco Use Comment F acility Jan 10, 2019 10:51 AM VA-TOBACCO NEVER USED [facility] Advance Directives: All historical and current [...] Encounter Note(s) Provider Source Oct 04, 2023 05:14 PM OTOLARYNGOLOGY CONSULT: LOCAL TITLE: CONSULT REPORT/OTOLARYNGOLOGY STANDARD TITLE: OTOLARYNGOLOGY CONSULT DATE OF NOTE: OCT 04, 2023@17:14 ENTRY DATE: OCT 04, 2023@17:14:48 AUTHOR: PAULA THOMPSON COSIGNER: URGENCY: STATUS: COMPLETED CONSULT REQUESTED FROM RAMONA HUNTER OCT 04, 2023 ARONRAYDILIA RAINEY is a 88 y/o smoker WHITE MALE, previously in [employer] FROM Nov TO Sep from [employer] [facility] [employer], w/chief complaint of HEARING LOSS, QUESTION INFECTION 88-year-old male with multiple medical problems 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 They were referred by their PCP for concern of possible ear infection. Patient's is giving most of the history as the patient is somewhat confused. Patient denies otalgia, otorrhea, tinnitus or vertigo. He is wheelchair-bound secondary to deconditioning. He does wear bilateral hearing aids for severe hearing loss. The patient has cognitive impairment, due to the white brain matter disorder, and has difficulty comprehending speech, and has short term memory problems. Lakshmi pearce recently has been in and out of the hospital and had COVID. His last hearing evaluation was a C&P on 05/23/23. 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 PMHx: Active problems - Computerized Problem List is [...] - Cataract 19. HL - Hearing loss Service Connected Disabilities with % Eligibility: SC LESS THAN 50% VERIFIED Total S/C %: 10 IMPAIRED HEARING 10% S/C MEDS: Active Outpatient Medications (including Supplies): APIXABAN 2.5MG TAB TAKE ONE TABLET BY MOUTH EVERY 12 HOURS ACTIVE FOR PREVENTION OF BLOOD CLOTS BRIEF,PROTECTIVE SUPER ABS LG ATTENDS USE 1 BRIEF ACTIVE DIRECTED THREE TIMES DAILY NEEDED FOR PERSONAL CARE CARBAMIDE PEROXIDE 6.5% OTIC SOLN INSTILL 5 DROPS INTO THE ACTIVE AFFECTED EAR(S) TWICE DAILY FOR EAR WAX BLOCKAGE CARBOXYMETHYLCELLULOSE NA 0.5% OPH SOLN INSTILL 1 DROP ACTIVE INTO EACH EYE FOUR TIMES DAILY NEEDED FOR DRY EYE CLEANSING CLOTH ATTENDS PKT USE ONE WASHCLOTH DIRECTED ACTIVE ONCE DAILY NEEDED DIGOXIN 0.125MG TAB TAKE ONE TABLET BY MOUTH EVERY OTHER ACTIVE (S) DAY DOCUSATE NA 100MG CAP TAKE ONE CAPSULE BY MOUTH TWICE ACTIVE DAILY NEEDED FOR CONSTIPATION TO SOFTEN STOOL GLOVE NITRILE MED PFREE NSTERILE TX USE GLOVE(S) ONCE ACTIVE DAILY NEEDED INCONT LINER DEPEND GUARDS USE 1 PAD TOPICALLY TWICE DAILY ACTIVE NEEDED MICONAZOLE NITRATE 2% TOP PWDR APPLY SMALL AMOUNT PENDING TOPICALLY TWICE DAILY NEEDED MULTIVITAMIN/MINERALS CHEW TAB CHEW 1 TABLET BY MOUTH ONCE ACTIVE DAILY FOR VITAMIN SUPPLEMENTATION NUTRITION SUPL ENSURE PLUS/SHIVA LIQUID DRINK 1 CAN BY ACTIVE MOUTH ONCE DAILY FOR NUTRITIONAL SUPPLEMENTATION [place]STATIN [id number] UNT/GM CREAM APPLY A THIN LAYER TOPICALLY ACTIVE TWICE DAILY PANTOPRAZOLE NA 40MG EC TAB TAKE ONE TABLET BY MOUTH TWICE ACTIVE DAILY FOR EXCESSIVE PRODUCTION OF STOMACH ACID UNDERPAD,BED 30IN X 36IN PLASTIC BACK USE 1 PAD TOPICALLY ACTIVE ONCE DAILY NEEDED FOR PERSONAL CARE ZINC OXIDE 20% OINT APPLY THIN LAYER TOPICALLY ONCE DAILY ACTIVE NEEDED FOR SKIN IRRITATION Non-VA DOCUSATE NA 100MG CAP 100MG BY MOUTH ONCE DAILY ACTIVE NEEDED ALL: LATEX GLOVE Fam Hx: Non - contributory ROS: Denies any other relavent ROS Vitals Enter at: Oct 04, 2023@14:53:23 BP: 124/78 P: 81 R: 16 T: 97.2 184.5 lb [83.69 kg] (10/04/2023 14:53) BMI: 25.1 CONSTITUTION: GENERAL APPEARANCE:Well developed, well nourished and groomed. No apparent acute or chronic distress. ELDERLY IN WHEEL CHAIR, NOT ABLE TO ANSWER QUESTIONS WITHOUT CONFUSION. HEAD, FACE, SALIVARY GLANDS AND TMJ: Palpation of Parotid and Submandibular glands: Normal. Facial Mobility: Normal. EAR, NOSE, MOUTH AND THROAT: Pinnas - normal. Otoscopic exam: HEARING AIDS REMOVED FOR THE EXAMINATION RIGHT EAR: External auditory canalSIGNIFICANT SOFT CERUMEN, tympanic membrane mobile LEFT EAR: External auditory canal normal SIGNIFICANT SOFT CERUMEN,tympanic membrane mobile SIGNIFICANT HEARING LOSS Nasal Interior: Turbinates and middle meatus - Inferior turbinates normal. Normal mucosa with no swelling, polyps, active bleeding or evidence of bleeding. Lips, Teeth and Gums: Lips normal. POOR DENTIION Oral Cavity and Oropharynx: Oral mucosa with normal color and moisture. Anterior 2/3rds of tongue normal. Breath quality normal. Hard palate normal. Normal floor of mouth, Posterior pharynx normal. DECREASED GAG REFLEX NECK AND THYROID: Neck: no adenopathy; no neck masses. RESPIRATORY: Respiratory effort normal. LYMPH NODES: Neck nodes: normal. NEUROLOGIC: Higher integrative functions: PATIENT CONFUSED, NOT RESPONDING APPROPRIATELY TO QUESTIONS Cranial nerves: Cranial nerves II-XII grossly intact and symmetrical. PSYCHIATRIC: Mood and affect: normal and appropriate to the situation. PROCEDURE NOTE - PERFORMED THIS VISIT CPT 52851 Cerumen removal, unilateral or bialteral Informed consent was obtained. Risks, benefits, and alternatives were discussed. PATHOLOGY FOUND: Wax impaction in both ears PROCEDURE: The right ear was examined using the operating otoscope. Then under Direct visualization the wax was remove using suction and/or instruments. The same procedure was repeated on the opposite side. TOLERANCE: The patient tolerated this well. AUDIOGRAM 10-04-2023 Results of today's testing are as follows: [...] day hearing test and fitting once cleared. Assessment/Plan OCT 04, 2023: 88-year-old male with multiple medical problems here with his who is his poultry hatchery laborer. They were referred by their PCP for concern of possible ear infection. Patient's is giving most of the history as the patient is somewhat confused. Patient denies otalgia, otorrhea, tinnitus or vertigo. He is wheelchair-bound secondary to deconditioning. He does wear bilateral hearing aids for severe hearing loss. The patient has nerve issues, due to the white brain matter disorder, and has difficulty comprehending speech, and has short term memory problems. Physical examination shows pt in wheel chair unable to transfer to examination chair with cognitive impairment, EAC show soft cerumen completely fillling EAC. Pt is tolerated removal reasonably well. EAC clear TM mobile. Pt and his poultry hatchery laborer were reassured that there was no evidence of infection. Pt tolerated removal of cerumen reasonably well, thoug patient was somewhat agitated. He is scheduled to return to audiology in the next few week for new audiogram and fitting of a new hearing aid in the same visit. I have told them that I am available if his cerumen reaccumulates even the day of audiology. I have also recommended they use debrodx drops 5 drops weekly in each ear. They will f/u with me in 6 months for cerumen removal. Given his severe hearing loss, maintanance of his cerumen is important. All questions were answered. Complete encounter includes: Review of past medical records Time spent with patient including obtaining history, physical exam, shared decision making, procedures Counseling and answering questions Post visit documentation to include but not limited to medication and lab ordering. Total time = Minimum 35 min MEDICATION RECONCILIATION Outpatient: Has the patient been taking medications as documented in the EMLR? YES: The patient has been taking medications as documented in the EMLR. Essential Medication List for Review used to complete this medication reconciliation. INCLUDED IN THIS LIST: Alphabetical list of active outpatient prescriptions dispensed from this [place] (local) and dispensed from another [place] or [place] facility (remote) as well as inpatient orders (local, pending and active), local clinic medications, locally documented non-VA medications, and local prescriptions that have or been discontinued in the past 90 days. - All changes in medications, including all non-VA/Herbal/OTC medications were entered into CPRS. - If there were any medications the patient should no longer take, they were discontinued. - The patient/caregiver was instructed to update this list, discard old lists, and take this list to the next appointment, whether with a VA or non-VA provider. JLV Link Data on this list may not be complete. Please check JLV. Allergies/ADRs (Tool #5) FACILITY ALLERGY/ADR -------- No Remote Allergy/ADR Data available for this patient [place] [facility] LATEX GLOVE Med Recon NoGlossary (Tool #1) INCLUDED IN THIS LIST: Alphabetical list of active outpatient prescriptions dispensed from this [place] (local) and dispensed from another [facility] or [facility] facility (remote) as well as inpatient orders (local pending and active), local clinic medications, locally documented non-VA medications, and local prescriptions that have or been discontinued in the past 90 days. Non-VA Meds Last Documented On: Jun 06, 2022 NOTE The display of VA prescriptions dispensed from another VA or DoD facility (remote) is limited to active outpatient prescription entries matched to National Drug File at the originating site and may not include some items such as investigational drugs, compounds, etc. NOT INCLUDED IN THIS LIST: Medications self-entered by the patient into personal health records (i.e. [employer]) are NOT included in this list. Non-VA medications documented outside this [place], remote inpatient orders (regardless of status) and remote clinic medications are NOT included in this list. The patient and provider must always discuss medications the patient is taking, regardless of where the medication was dispensed or obtained. OUTPT APIXABAN 2.5MG TAB (Status = Discontinued) TAKE ONE TABLET BY MOUTH EVERY 12 HOURS FOR PREVENTION OF BLOOD CLOTS Rx# [id number] Last Released: 08/10/23 Qty/Days Supply: 60 Rx Expiration Date: 06/19/24 Refills Remainin Indication: FOR PREVENTION OF BLOOD CLOTS OUTPT APIXABAN 2.5MG TAB (Status = Active) TAKE ONE TABLET BY MOUTH EVERY 12 HOURS FOR PREVENTION OF BLOOD CLOTS Rx# [id number] Last Released: 10/04/23 Qty/Days Supply: 60 Rx Expiration Date: 09/11/24 Refills Remainin Indication: FOR PREVENTION OF BLOOD CLOTS OUTPT CARBAMIDE PEROXIDE 6.5% OTIC SOLN (Status = Active) INSTILL 5 DROPS INTO THE AFFECTED EAR(S) TWICE DAILY FOR EAR WAX BLOCKAGE Rx# [id number] Last Released: 09/26/23 Qty/Days Supply: Rx Expiration Date: 05/05/24 Refills Remainin Indication: FOR EAR WAX BLOCKAGE OUTPT CARBOXYMETHYLCELLULOSE NA 0.5% OPH SOLN (Status = Active) INSTILL 1 DROP INTO EACH EYE FOUR TIMES DAILY NEEDED FOR DRY EYE Rx# [id number] Last Released: 07/21/23 Qty/Days Supply: Rx Expiration Date: 12/24/23 Refills Remainin Indication: FOR DRY EYE OUTPT DICLOFENAC NA 1% TOP GEL (Status = ) APPLY 2 GRAMS TOPICALLY FOUR TIMES DAILY NEEDED FOR OSTEOARTHRITIS - USE DOSING CARD PROVIDED IN BOX Rx# [id number] Last Released: 12/22/22 Qty/Days Supply: Rx Expiration Date: 09/30/23 Refills Remainin Indication: FOR JOINT PAIN OUTPT DIGOXIN 0.125MG TAB (Status = Discontinued) TAKE ONE TABLET BY MOUTH EVERY OTHER DAY FOR 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 Rx# [id number] Last Released: 09/07/23 Qty/Days Supply: Rx Expiration Date: 10/05/23 Refills Remainin Indication: FOR 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 OUTPT DIGOXIN 0.125MG TAB (Status = Active/Suspended) TAKE ONE TABLET BY MOUTH EVERY OTHER DAY Rx# [id number] Last Released: 09/21/23 Qty/Days Supply: Rx Expiration Date: 09/15/24 Refills Remainin Non-VA DOCUSATE NA 100MG CAP TAKE 1 CAPSULE BY MOUTH ONCE DAILY NEEDED Indication: FOR CONSTIPATION OUTPT DOCUSATE NA 100MG CAP (Status = Active) TAKE ONE CAPSULE BY MOUTH TWICE DAILY NEEDED FOR CONSTIPATION TO SOFTEN STOOL Rx# [id number] Last Released: 09/07/23 Qty/Days Supply: 200/90 Rx Expiration Date: 09/05/24 Refills Remainin Indication: FOR CONSTIPATION OUTPT MICONAZOLE NITRATE 2% TOP PWDR (Status = Pending) APPLY SMALL AMOUNT TOPICALLY TWICE DAILY NEEDED Login Date: 10/04/23 Qty/Days Supply: 85/30 Refills Ordered: 2 OUTPT MULTIVITAMIN/MINERALS CHEW TAB (Status = Active) CHEW 1 TABLET BY MOUTH ONCE DAILY FOR VITAMIN SUPPLEMENTATION Rx# [id number] Last Released: 08/24/23 Qty/Days Supply: 6060 Rx Expiration Date: 07/12/24 Refills Remainin Indication: FOR VITAMIN SUPPLEMENTATION OUTPT NUTRITION SUPL ENSURE PLUS/SHIVA LIQUID (Status = Active) DRINK 1 CAN BY MOUTH ONCE DAILY FOR NUTRITIONAL SUPPLEMENTATION Rx# [id number] Last Released: 09/11/23 Qty/Days Supply: 72/90 Rx Expiration Date: 07/04/24 Refills Remainin Indication: FOR NUTRITIONAL SUPPLEMENTATION OUTPT NYSTATIN [id number] UNT/GM CREAM (Status = Active) APPLY A THIN LAYER TOPICALLY TWICE DAILY Rx# [id number] Last Released: 09/26/23 Qty/Days Supply: Rx Expiration Date: 09/13/24 Refills Remainin Indication: FOR FUNGAL INFECTION OUTPT PANTOPRAZOLE NA 40MG EC TAB (Status = Discontinued) TAKE ONE TABLET BY MOUTH TWICE DAILY FOR EXCESSIVE PRODUCTION OF STOMACH ACID Rx# [id number] Last Released: 08/10/23 Qty/Days Supply: 6030 Rx Expiration Date: 06/19/24 Refills Remainin Indication: FOR EXCESSIVE PRODUCTION OF STOMACH ACID OUTPT PANTOPRAZOLE NA 40MG EC TAB (Status = Active) TAKE ONE TABLET BY MOUTH TWICE DAILY FOR EXCESSIVE PRODUCTION OF STOMACH ACID Rx# [id number] Last Released: 09/12/23 Qty/Days Supply: 60 Rx Expiration Date: 09/11/24 Refills Remainin Indication: FOR EXCESSIVE PRODUCTION OF STOMACH ACID OUTPT PREDNISOLONE ACETATE 1% OPH SUSP (Status = ) INSTILL 1 DROP INTO THE AFFECTED EYE(S) FOUR TIMES A DAY DIRECTED Rx# [id number] Last Released: 08/15/23 Qty/Days Supply: 07/26 Rx Expiration Date: 09/14/23 Refills Remainin OUTPT ZINC OXIDE 20% OINT (Status = Discontinued) APPLY THIN LAYER TOPICALLY ONCE DAILY NEEDED FOR SKIN IRRITATION Rx# [id number] Last Released: 08/10/23 Qty/Days Supply: 30 Rx Expiration Date: 01/12/24 Refills Remainin Indication: FOR SKIN IRRITATION OUTPT ZINC OXIDE 20% OINT (Status = Active) APPLY THIN LAYER TOPICALLY ONCE DAILY NEEDED FOR SKIN IRRITATION Rx# [id number] Last Released: 10/04/23 Qty/Days Supply: Rx Expiration Date: 10/03/24 Refills Remainin Indication: FOR SKIN IRRITATION SUPPLIES OUTPT BRIEF,PROTECTIVE SUPER ABS LG ATTENDS (Status = Discontinued) USE 1 BRIEF DIRECTED ONCE DAILY NEEDED FOR PERSONAL CARE Rx# [id number] Last Released: 09/19/23 Qty/Days Supply: 7230 Rx Expiration Date: 06/29/24 Refills Remainin OUTPT BRIEF,PROTECTIVE SUPER ABS LG ATTENDS (Status = Active) USE 1 BRIEF DIRECTED THREE TIMES DAILY NEEDED FOR PERSONAL CARE Rx# [id number] Last Released: QtDays Supply: 144/30 Rx Expiration Date: 10/03/24 Refills Remainin OUTPT CLEANSING CLOTH ATTENDS PKT (Status = Discontinued) USE ONE WASHCLOTH DIRECTED ONCE DAILY NEEDED Rx# [id number] Last Released: 09/13/23 Qty/Days Supply: 2 Rx Expiration Date: 06/20/24 Refills Remainin OUTPT CLEANSING CLOTH ATTENDS PKT (Status = Active) USE ONE WASHCLOTH DIRECTED ONCE DAILY NEEDED Rx# [id number] Last Released: 10/04/23 Qty/Days Supply: 2 Rx Expiration Date: 09/11/24 Refills Remainin OUTPT GLOVE NITRILE MED PFREE NSTERILE TX (Status = Discontinued) USE GLOVE(S) ONCE DAILY NEEDED Rx# [id number] Last Released: 09/13/23 Qty/Days Supply: 200/30 Rx Expiration Date: 06/20/24 Refills Remainin OUTPT GLOVE NITRILE MED PFREE NSTERILE TX (Status = Active) USE GLOVE(S) ONCE DAILY NEEDED Rx# [id number] Last Released: 10/04/23 Qty/Days Supply: 200/30 Rx Expiration Date: 09/11/24 Refills Remainin OUTPT INCONT LINER DEPEND GUARDS (Status = Active) USE 1 PAD TOPICALLY TWICE DAILY NEEDED Rx# [id number] Last Released: Qty/Days Supply: 104/30 Rx Expiration Date: 10/03/24 Refills Remainin OUTPT UNDERPAD,BED 30IN X 36IN PLASTIC BACK (Status = Active) USE 1 PAD TOPICALLY ONCE DAILY NEEDED FOR PERSONAL CARE Rx# [id number] Last Released: 06/21/23 Qty/Days Supply: 75/60 Rx Expiration Date: 06/20/24 Refills Remainin /es/ Paula Thompson MD Otolaryngology Signed: 10/05/2023 08:10 PAULA THOMPSON [facility]
--- OUTSIDE RECORDS SUMMARY | 2024-03-07 06:43 | XMS_ITS ---
Author Name [facility] [place] [facility] [place] Address [address] [place] [address] Care Team Providers Care Social Services Specialist Name Role Phone RAMONA HUNTER Primary Care [...] PART B Feb 27, 2017 PART B [id number] REJI,GUSTAVO NRY PATIENT MEDICARE (WNR) MEDICARE (M) PART B Feb 27, 2017 PART B [id number] [phone] REJI,GUSTAVO NRY PATIENT MEDICARE (WNR) MEDICARE (M) PART A Feb 27, 2001 PART A [id number] [phone] WILGUS,HE NRY PATIENT MEDICARE (WNR) MEDICARE (M) PART A Feb 27, 2001 PART A [id number] GUSTAVO MENDOZA PATIENT Selected Encounter This section includes the information on record at [place] for the Encounter. 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 Date/Time Primary/Secondary Diagnosis Diagnosis Name Provider Source Sep 11, 2023 03:00 PM PRIMARY Unspecified atrial fibrillation RAMONA HUNTER [place] [facility] [place] [facility] Sep 11, 2023 03:00 PM SECONDARY Hypertensive heart disease without heart failure RAMONA HUNTER [place] [facility] [place] [facility] Sep 11, 2023 03:00 PM SECONDARY Other [facility] [place] [facility] Plan of Treatment: Future Appointments (+ 6 months) and Future Tests (+/- 45 days) The Plan of Treatment section includes future care activities for the patient [facility] [place] [facility] This section includes future appointments and future orders which are active, pending or scheduled. Future Appointments This section includes appointments that were scheduled to occur 6 months from the date of the Encounter, up to a maximum of 20 appointments. The data comes from all [place] treatment facilities. Appointment Date/Time Appointment Type Appointme nt Facility Name Oct 04, 2023 02:00 PM AMBULATORY - [place] [facility] [place] [facility] Oct 04, 2023 03:00 PM AM[place]ULATORY [place] [facility] [place] [facility] Oct 04, 2023 03:30 PM AM[place]ULATORY [place] [facility] [place] [facility] Oct 04, 2023 04:15 PM AM[place]ULATORY [place] [facility] [place] [facility] Nov 28, 2023 08:00 AM AM[place]ULATORY [place] [facility] [place] [facility] Dec 08, 2023 08:00 AM AMBULATORY - MEDICINE [facility] Dec 08, 2023 03:00 PM [facility] [place] [facility] Jan 11, 2024 11:25 AM AMBULATORY - MEDICINE [facility] Vital Signs: All taken on the encounter date This section contains inpatient and outpatient Vital Signs collected on the date of the Encounter. Date/Time Temperature Pulse Blood Pressure Respiratory Rate SP02 Pain Height Weight Body Mass Index Source Sep 11, 2023 02:50 PM 98.3 78 162/78 16 98 0 177.6 24 [facility] Social History: Smoking Status (Most current) and Tobacco Use (All prior to encounter date) This section includes the most current, and the historical, smoking and tobacco- related health factors from the [place] facility where the Encounter took place. Current Smoking Status This section includes the most current smoking, or tobacco-related health factor, from the [place] facility where the Encounter took place. Date/Time Current Smoking Status Comment Facil ity Dec 14, 2022 12:15 PM VA-TOBACCO NEVER USED [facility] Tobacco Use History This section includes a history of the smoking, or tobacco-related health factors, that were collected on or before the date of the Encounter. The data comes from the [place] facility where the Encounter took place. Date/Time Smoking Status/Tobacco Use Comment F acility Jan 10, 2019 10:51 AM VA-TOBACCO NEVER USED [facility] Advance Directives: All historical and current Section Date Range: From patient's date of to the date document was created. This section includes ALL of a patient's completed or amended [place] Advance and Rescinded Directives. The entries below indicate that a directive exists for the patient, but an actual copy is not included with this document. The data comes from all [place] facilities. Date Advance Directives Provider Source Aug 14, 2020 ADVANCE DIRECTIVE CRISTOPHER BENITEZ Encounter Notes: All associated encounter notes This section contains the clinical notes associated to the Encounter. Date/Time Encounter Note(s) Provider Source Sep 11, 2023 09:08 AM [facility] NURSING NOTE: LOCAL TITLE: [facility] APPLICATION SECURITY ENGINEER PROGRESS NOTE STANDARD TITLE: [facility] NURSING NOTE DATE OF NOTE: SEP 11, 2023@09:08 ENTRY DATE: SEP 11, 2023@09:09:02 AUTHOR: KERI HUNTER COSIGNER: URGENCY: STATUS: COMPLETED was seen for: post hospital f/u Identified by name, , address and facial recognition: Y VVC Ready: Yes [ ] No [x] HPI: Problem visit: Patient seen for post hospital s/p COVID, fib w RVR 08/27-09/01/23. He was started on Digoxin. Tolering w/out SE. Denies CP, SOD, dizziness. Has cardiology f/u 09/15/23. Was started on POLYMIXIN/TRIMETHOPRIM 0.1% SOLN,OPHPALMIC drops for conjunctivitis w improvement of sx. [facility]. PMH: Active problems - [...] PLUS/SHIVA LIQUID DRINK 1 CAN BY ACTIVE (S) MOUTH ONCE DAILY FOR NUTRITIONAL SUPPLEMENTATION 9) [...] 24.1 Pain: 0 (09/11/2023 14:50) (0-10 scale) Pulse Ox:Measurement DT POx (L/MIN)(%) 09/11/2023 14:50 98 Examination: pt is alert and orient to person and place. +[place] w hearing aides. HEENT: normal NECK: supple CVS: regular rate and rhythm distant Lungs: clear to auscultation throughout, no use of accessory muscles EXT: no edema Sitting in reclinder CXR was negative and CT scan of the brain unremarkable for acute changes. EKG showed sinus rhythm with first-degree AV block. BUN 13 mg/dL () 08/29/2023 05:48 Creatinine-Blood 1.18 mg/dL () 08/29/2023 05:48 Future Clinic Visits 10/04/2023 14:00 CWM NO AUDIO EVAL D 10/04/2023 15:30 NHM/OPTOMETRY/BORASKI All diagnostics from past month were reviewed with patient. Assessment/plan: >afib: on DOAC cont Digoxin 0.0125mg every other day f/u w cardiology as planned Patient prior was on amiodarone but this was discontinued due to dizziness and then was on digoxin + cardizem which resulted in deshaun. >HTN: BP trend slightly higher. cont to monitor NA intake and track BP's > conjunctivitis: improving w POLYMIXIN/TRIMETHOPRIM 0.1% SOLN,OPHPALMIC drops. Return to clinic to see me per recall, sooner PRN. Review of medical records: 10 min Time spent w patient including shared [...] documented in this note. /lalo/ RAMONA HUNTER RN,MSN,LENS POLISHER-C [facility] NURSE PRACTITIONER Signed: 09/11/2023 15:00 JEFF HUNTER [facility] TR[facility]ena [facility]
--- OUTSIDE RECORDS SUMMARY | 2024-03-07 06:43 | XMS_ITS | Encounter Summary ---
Author Name [facility] [place] [facility] [place] [facility] Address [address] [place] [id number] Care Team Providers Care Machinery Erector Name Role Phone SARAY GARCIA Primary Care [...] PART B Feb 27, 2017 PART B [id number] [phone] REJI,GUSTAVO NRY PATIENT MEDICARE (WNR) MEDICARE (M) PART B Feb 27, 2017 PART B [id number] REJI,GUSTAVO NRY PATIENT MEDICARE (WNR) MEDICARE (M) PART A Feb 27, 2001 PART A [id number] [phone] REJI,GUSTAVO NRY PATIENT MEDICARE (WNR) MEDICARE (M) PART A Feb 27, 2001 PART A [id number] GUSTAVO MENDOZA PATIENT Selected Encounter This section includes the information on record at [place] for the Encounter. Date/Time Encounter Type Encounter Description Reason Pro vider Source Aug 28, 2023 03:19 PM Outpatient Encounter [facility] Nursing (RN / LP) IHE Encounter Template Text not used by [place] Plan of Treatment: Future Appointments (+ 6 months) and Future Tests (+/- 45 days) The Plan of Treatment section includes future care activities for the patient from all [place] [facility]. This section includes future appointments and future orders which are active, pending or scheduled. Future Appointments This section includes appointments that were scheduled to occur 6 months from the date of the Encounter, up to a maximum of 20 appointments. The data comes from all [place] treatment facilities. Appointment Date/Time Appointment Type Appointme nt Facility Name Oct 04, 2023 02:00 PM AMBULATORY - [place] [facility] [place] [facility] Oct 04, 2023 03:00 PM AMBULATORY - MEDICINE [facility] [place] [facility] Oct 04, 2023 03:30 PM AMBULATORY - MEDICINE [facility] [place] [facility] Oct 04, 2023 04:15 PM AMBULATORY - MEDICINE [facility] [place] [facility] Nov 28, 2023 08:00 AM AMBULATORY - MEDICINE [facility] [place] [facility] Dec 08, 2023 08:00 AM AMBULATORY - MEDICINE [facility] Dec 08, 2023 03:00 PM AMBULATORY - RE[place] MEDICIN [place] [facility] [place] [place] [facility] Jan 11, 2024 11:25 AM [facility] Social History: Smoking Status (Most current) and [...] took place. Date/Time Current Smoking Status Phill Mack telly Dec 14, 2022 12:15 PM [facility] Tobacco Use History This section includes a history of the smoking, or tobacco-related health factors, that were collected on or before the date of the Encounter. The data comes from the [place] facility where the Encounter took place. Date/Time Smoking Status/Tobacco Use Comment F acility Jan 10, 2019 10:51 AM [place]-TOBACCO NEVER USED [facility] Advance Directives: All historical and current Section [...] Provider Source Aug 14, 2020 ADVANCE DIRECTIVE BENITEZCRISTOPHERPATRICIA MORGAN Encounter Notes: All associated encounter notes This section contains the clinical notes associated to the Encounter. Date/Time Encounter Note(s) Provider Source Aug 28, 2023 03:19 PM [facility] NOTE: LOCAL TITLE: [facility] HOSPITAL NOTIFICATION STANDARD TITLE: [facility] NOTE DATE OF NOTE: AUG 28, 2023@15:19 ENTRY DATE: AUG 28, 2023@15:20:09 AUTHOR: RAÚL FONG EXP COSIGNER: URGENCY: STATUS: COMPLETED bed operator: Jodi Fong Provider: Saray Garcia [facility] Date of Admission: Aug Date of Discharge:Inpatient Covid-19 Testing Performed: Yes Positive Current Status of Patient: [facility] providing care in the home: No Request for records made to Right : Comments: /lalo/ JODI FONG RN [facility] scrap metal burner Signed: 08/28/2023 15:21 Receipt Acknowledged By: 08/28/2023 16:00 /lalo/ [employer]AY[facility] [employer] [facility] BEHAVIOR SUPPORT SPECIALIST RAÚL FONG [facility]
--- OUTSIDE RECORDS SUMMARY | 2024-03-07 06:43 | XMS_ITS | Encounter Summary ---
Author Name [facility] [place] [facility] [place] Address [address] [place] [address] Care Team Providers Care Data Visualization Developer Name Role Phone RAMONA HUNTER Primary Care [...] Policy Solano's Name Patient's Relationship to Policy Solnao MEDICARE (WNR) MEDICARE (M) PART B Feb 27, 2017 PART B [id number] REJI,GUSTAVO NRY PATIENT MEDICARE (WNR) MEDICARE (M) PART B Feb 27, 2017 PART B [id number] REJI,GUSTAVO NRY PATIENT MEDICARE (WNR) MEDICARE (M) PART A Feb 27, 2001 PART A [id number] [phone] WILGUS,HE NRY PATIENT MEDICARE (WNR) MEDICARE (M) PART A Feb 27, 2001 PART A [id number] GUSTAVO CLINE PATIENT Selected Encounter This section includes the information on record at [place] for the Encounter. 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 Date/Time Primary/Secondary Diagnosis Diagnosis Name Provider Source July 20, 2023 11:48 PM PRIMARY Other nursing home (current) drug therapy [facility] Plan of Treatment: Future Appointments (+ 6 months) and Future Tests (+/- 45 days) The Plan of Treatment section includes future care activities for the patient from all [place] treatmentfacilities. This section includes future appointments and [...] PM AMBULATORY - REHAB MEDICIN [place] [facility] [place] [facility] Oct 04, 2023 03:00 PM AMBULATORY - MEDICINE [facility] [place] [facility] Oct 04, 2023 03:30 PM AMBULATORY - MEDICINE [facility] [place] [facility] Oct 04, 2023 04:15 PM AMBULATORY - MEDICINE [facility] [place] [facility] Nov 28, 2023 08:00 AM AMBULATORY - MEDICINE [facility] [place] [facility] Dec 08, 2023 08:00 AM AMBULATORY - MEDICINE [facility] Dec 08, 2023 03:00 PM AMBULATORY - REHAB MEDICIN E [place] [facility] [place] [facility] Jan 11, 2024 11:25 AM [facility] [place] [facility] Social History: Smoking Status (Most current) [...] 14, 2022 12:15 PM VA-TOBACCO NEVER USED [facility] Tobacco Use History This section includes a history of the smoking, or tobacco-related health factors, that were collected on or before the date of the Encounter. The data comes from the [place] facility where the Encounter took place. Date/Time Smoking Status/Tobacco Use Comment Dane acility Jan 10, 2019 10:51 AM VA-TOBACCO NEVER USED [facility] Advance Directives: All historical and current [...] Encounter Note(s) Provider Source July 20, 2023 11:47 PM [facility] MEDICATION MGT NOTE: LOCAL TITLE: [facility] PHARMACY MEDICATION REVIEW STANDARD TITLE: [facility] MEDICATION MGT NOTE DATE OF NOTE: JULY 20, 2023@23:47 ENTRY DATE: JULY 20, 2023@23:47:55 AUTHOR: FRANK PIZANO COSIGNER: URGENCY: STATUS: COMPLETED Dilia Cline is an 88 year-old WHITE MALE. PMH (per problem list): Alzheimer's dementia, hiccups, hx of anemia, a fib, white matter disease, thyroid gland disorder, shoulder pain, lipoma, actinic keratosis, HTN, disorder of meniscus of knee s/p surgery on bilateral knees, BPH, ED, spinal stenosis, cataract, hearing loss, dry eyes, exposure to potentially hazardous chemical Alcohol (-) Tobacco (-) Allergies/ADR: LATEX GLOVE (rash) ========= Active Outpatient Medications Status ========= 1) APIXABAN 2.5MG TAB TAKE ONE TABLET BY MOUTH EVERY 12 ACTIVE HOURS FOR PREVENTION OF BLOOD CLOTS * NEW * takes 7am and 7pm 2) BRIEF,PROTECTIVE SUPER ABS LG ATTENDS USE [...] USE GLOVE(S) ONCE ACTIVE DAILY NEEDED 8) MULTIVITAMIN/MINERALS CHEW TAB CHEW 1 TABLET BY MOUTH ACTIVE (S) ONCE DAILY FOR VITAMIN SUPPLEMENTATION 9) NUTRITION SUPL ENSURE PLUS/SHIVA LIQUID DRINK 1 CAN BY ACTIVE MOUTH ONCE DAILY FOR NUTRITIONAL SUPPLEMENTATION * NEW 10) PANTOPRAZOLE NA 40MG EC TAB TAKE ONE TABLET BY MOUTH ACTIVE TWICE DAILY FOR EXCESSIVE PRODUCTION OF STOMACH ACID * NEW * may be taking 40mg daily 11) UNDERPAD,BED 30IN X 36IN PLASTIC BACK USE 1 PAD ACTIVE TOPICALLY ONCE DAILY NEEDED FOR PERSONAL CARE 12) ZINC OXIDE 20% OINT APPLY THIN LAYER TOPICALLY ONCE ACTIVE DAILY NEEDED FOR SKIN IRRITATION Active Non-VA Medications Status ========= 1) Non-VA DOCUSATE NA 100MG CAP 100MG BY MOUTH ONCE ACTIVE DAILY NEEDED 2) Non-VA METOCLOPRAMIDE HCL 10MG TAB 10MG BY MOUTH ACTIVE THREE TIMES DAILY NEEDED * has not used in over a year THE ABOVE MEDICATIONS WERE REVIEWED FOR: ADR, potential incompatibilities, compliance, duplication of therapy, and indications on problem list Other Rx/OTC/Herbals: none identified High Alert Meds: apixaban Look Alike/Sound Alike Meds: none Duplication of Therapy: Ensure AND multivitamin Excessive Duration: metoclopramide, multivitamin Vitals: ======= Ht: 72 in [182.9 cm] (08/14/2020 10:08) Wt: 188.9 lb [85.68 kg] (04/28/2023 13:30) BMI: 25.7 BP: 140/70 (07/10/2023 12:30) HR: 64 (07/10/2023 12:30) Pain: 0 (07/10/2023 12:30) Labs: ===== *labwork from [facility] SERUM Na K BUN SCr *06/17/23 137 4.3 23 1.4 *06/12/23 135 4.5 19 1.5 *05/28/23 135 3.9 16 1.2 03/20/23 137 4.8 15 1.16 eGFR (CKD-EPI 2020): 61 (03/20/23) CrCl (C&G, SCr 1.5, adj BW): ~40 mL/min EKG (*07/11/23): Sinus rhythm with 1st degree A-V block. Incomplete right bundle branch block EKG (*05/28/23): Atrial fibrillation with rapid ventricular response with premature ventricular or aberrantly conducted complexes. Left axis deviation. Right bundle branch block SERUM AST ALT *05/28/23 14 12 BLOOD WBC Hgb Hct MCV Plt *06/12/23 5.8 12.4 L 36.9 L 87.6 273 05/23/23 6.36 14.7 42.9 86.8 226 *12/30/22 6.4 13.6 40.2 88 208 10/07/22 5.57 14 42.2 88.5 218 A1c: 5.3 % (03/20/23) TSH: 3.89 uIU/mL (*05/28/23) 4.54 uIU/mL (05/23/23) 5.18 H uIU/mL (03/20/23) T4: 1.03 ng/dL (05/23/23) Vit B12: 793 pg/mL (04/29/22) Folate: 17.2 ng/mL (08/14/20) SERUM LDL HDL TG Tot Chol 10/07/22 114 42 149 186 Vit D: 32 ng/mL (10/07/22) Ca: 8.6 mg/dL (*06/12/23) Alb: 3.6 g/dL (*05/28/23) ASSESSMENT: In the last 90 days: - No infections noted - Per the 05/23/23 [facility] tele note, 's thyroid ultrasound was normal. Lipoma was benign and does not require f/u. - Ramses presented to the [facility] ED on 05/28/23 for confusion and weakness. Was found to have a fib. Had bradycardia with sinal pauses while inpatient with rate control strategy (IV metoprolol, PO diltiazem, and digoxin). Cardiology recommended trial of amiodarone, but dose was decreased and then agent was stopped d/t bradycardia, fatigue, and dizziness. Was started on pantoprazole and gabapentin for worsening hiccups with good effect. Was started on apixaban 2.5mg BID given age and SCr of 1.5. Discharged to [facility] on 06/02/23 to [facility] with [facility]arge home on 06/17/23. - Per the 05/29/23 [facility] tele note, orders entered for increased incontinence. - Per the 06/21/23 [facility] RN progress note, ramses is no longer having hiccups. Gabapentin dose was tapered and discontinued given caregiver concerns ramses had been more sluggish since starting. - Ramses sustained an unwitnessed fall on 06/21/23 while walking to the bathroom when he felt like he passed out resulting in R hand skin tear. Went to the ER. Was given a short course of cefadroxil. - Per the 06/26/23 [facility] TECHNOLOGY PROJECT MANAGER progress note, plan to trial pantoprazole 40mg daily (frequency decrease from 40mg BID). Ramses is wearing a Zio patch for Cardiology f/u in mid-June. - Per the 07/11/23 Cardiology visit, ramses's orthostatic BPs significant for syncope ~2 weeks ago. Awaiting Zio monitor data for review. INTERVENTIONS/SUGGESTIONS: 1. Patient's medications were reviewed for significant drug interactions. No significant findings, but will continue to monitor with adjustments to medication regimen. 2. Patient has reduced renal function with an estimated creatinine clearance of ~40 mL/min, therefore at risk of accumulation of renally cleared drugs. LFTs WNL. Current medications are dosed appropriately for the patient's renal and hepatic function. * apixaban: a dose of 5mg BID is recommended based on SCr of less than 1.5 and weight of greater than 60kg - last SCrs of 1.5 and 1.4 were above baseline in the setting of SIN/dehydration, continue to monitor renal function to ensure appropriateness of current dosing 3. Medications reviewed to determine if regimen could contribute to falls. Several agents on 's active medication list may increase fall risk including metoclopramide and pantoprazole. Also, apixaban use may increase bleeding risk should a fall occur. Last documented fall occurred on 06/21/23 where was walking to the bathroom and felt like he passed out resulting in R hand skin tear. To reduce the risk for falls, educate pt re: safe postural transitions and signs/sx of orthostatic hypotension. Also, monitor for dizziness, drowsiness, and confusion given current medication regimen. Also of note, long-term use of a PPI may increase risk of fracture should a fall occur. - is prescribed apixaban for a fib diagnosis. Please continue to emphasize the importance of seeking emergency help should he hit his head in future. This is recommended due to concern for intracranial hemorrhage. 4. All medical conditions have appropriate medication treatment. * a fib - on DOAC; dose may not be appropriate given last SCr of 1.4 and weight ~86 kg; could consider dose increase from 2.5mg to 5mg BID if renal function remains stable or improves, although appreciate recent fall * hx of anemia - last CBC significant for Hgb of 12.4, decreased from 14.7; recommend close monitoring for signs/sx of bleeding while on DOAC * Alzheimer's dementia - no cognitive agents at this time, would be cautious with considering donepezil given RBBB seen on EKG from Dec 2022 ED visit and hx of dizziness * HTN - last BPs mostly controlled off of antihypertensive, previously on lisinopril - stopped 04/29/22 in the setting of lower BPs and positive orthostasis on 5 mg dose, recent hx of bradycardia with trial of rate control tx for a fib * BPH - no tx, no documented hx of elevated PSA but could consider ordering a level to see if finasteride is indicated * ED - not on pharmacotherapy, no recent complaints per chart review, previously used PRN sildenafil - last Rx in 2018 5. All medications have an appropriate indication and supporting clinical symptoms. * multivitamin - no clear indication, especially with concurrent Ensure use; would consider discontinuation to reduce pill burden * metoclopramide - used intermittently for hiccups with no recent hiccups since discharge from [facility]; no PRN use of this agent since Mar 2022, this race and sports book writer to discontinue * pantoprazole - was started while inpatient at [facility] in May 2023 for hiccups with improvement, would continue to assess the risks versus benefit given risk of long-term adverse effects of fracture, infection, and Mg/vitamin B12 deficiency. 6. Adherence Concerns: * PRN topical diclofenac - last filled Nov 2022 * pantoprazole - last filled 06/19/23, 30-day supply 7. Health Maintenance: > Immunizations: is due for the following immunizations per chart review and CDC recommendations: * COVID-19 - received a dose of the [id number] formulation on 12/23/22; due for a booster dose - Per Mar 2023 CDC update, adults ages 65 years and older are now recommended to receive an additional updated 0936-3218 COVID-19 vaccine dose in an effort to restore protection that has waned. Adults 65 years and older are disproportionately impacted by COVID-19, with more than half of COVID-19 hospitalizations during November 2022 to January 2023 occurring in this age group. Guidance suggests the booster dose be received at least four months after the previous 1686-9746 COVID-19 vaccination. * Tdap * PCV20 (shared decision making) > Bladder/Bowel: * Inquire about incontinence and severity biannually. > Bone Health: * not taking Ca or vit D supplementation * last vit D and Ca levels WNL > Aspirin: * not taking low-dose aspirin, no hx of ASCVD per problem list * is at increased risk of bleeding given DOAC use 8. Patient has at least 1 refill remaining for all chronic VA Rxs. 9. Continue to review quarterly. Recommendations: - Per the 06/26/23 [facility] TECHNOLOGY PROJECT MANAGER progress note, plan was to trial change in pantoprazole dosing from 40mg BID to 40mg daily. Please reassess for any change in hiccups and update VA Rx to reflect how will be taking this agent moving forward to reconcile med list. - Please ensure disposes of non-VA Rx of metoclopramide. [place] has not used in over a year and hiccups have recently been well-controlled per chart review. Also, this agent is not typically recommended in older adults given significant risks of dizziness, drowsiness, and confusion. Of note, this race and sports book writer discontinued from 's non-VA med list. Could consider ordering a medication take-back envelope for disposal of old Rx. - Would consider discontinuation of daily multivitamin given daily Ensure use, recent reports of difficulty swallowing, and in an effort to reduce pill burden. - Could consider obtaining updated vit B12 and folate levels with next scheduled labwork to assess for reversible causes of cognitive decline in the setting of dementia. - Please assess 's willingness to receive the Tdap vaccine during next scheduled visit. The details of this review were shared with the IDT in order to assist in creating a care plan designed to provide services focused on the health and well being of the patient. Time Spent: 60 min /lalo/ FRANK PIZANO [facility] Clinical Pharmacist Practitioner Signed: 07/26/2023 20:23 Receipt Acknowledged By: 07/27/2023 18:23 /lalo/ JODI SUTTON RN [facility] social economist 07/27/2023 12:54 /lalo/ ALESSIA SOLARES [facility] NURSE PRACTITIONER for FRANK GOTTI [facility]
--- OUTSIDE RECORDS SUMMARY | 2024-03-07 06:43 | XMS_ITS | Encounter Summary ---
Author Name [facility] [place] Address [address] [place] [id number] Care Team Providers Care Geodetic Technician Name Role Phone RAMONA HUNTER Primary [...] PART B Feb 27, 2017 PART B [id number] REJI,GUSTAVO NRY PATIENT MEDICARE (WNR) MEDICARE (M) PART B Feb 27, 2017 PART B [id number] REJI,GUSTAVO NRY PATIENT MEDICARE (WNR) MEDICARE (M) PART A Feb 27, 2001 PART A [id number] REJI,HE NRY PATIENT MEDICARE (WNR) MEDICARE (M) PART A Feb 27, 2001 PART A [id number] [phone] GUSTAVO MENDOZA PATIENT Selected Encounter This section includes the information on record at [place] for the Encounter. Date/Time Encounter Type Encounter Description Reason Provider Source Oct 04, 2023 03:30 PM COMPRE OPH EXAM EST PT 1/> OPTOMETRY ICD-10-CM H04.123 Dry eye syndrome of bilateral lacrimal glands ADALID VALDEZ Yg Encounter Template Text not used by [place] Assessments - Encounter Diagnoses This section includes the primary and secondary diagnoses documented for the Encounter. Date/Time Primary/Secondary Diagnosis Diagnosis Name Provider Source Oct 04, 2023 04:30 PM PRIMARY Dry eye syndrome of bilateral lacrimal glands [facility] [facility] Oct 04, 2023 04:30 PM SECONDARY Presence of intraocular lens [place]ALID VALDEZ [place] [facility] [place] [facility] Oct 04, 2023 04:30 PM SECONDARY Unspecified disorder of refraction ADALID VALDEZ [place] [facility] [place] [facility] Plan of Treatment: Future Appointments (+ 6 [...] 28, 2023 08:00 AM AMBULATORY - MEDICINE [facility] [place] [facility] Dec 08, 2023 08:00 AM AMBULATORY - MEDICINE [facility] Dec 08, 2023 03:00 PM AMBULATORY - [place]ICIN [place] [facility] Jan 11, 2024 11:25 AM AMBULATORY - MEDICINE [facility] [place] [facility] Vital Signs: All taken on the encounter date This section contains inpatient and outpatient Vital Signs collected on the date of the Encounter. Date/Time Temperature Pulse Blood Pressure Respiratory Rate SP02 Pain Height Weight Body Mass Index Source Oct 04, 2023 02:53 PM 97.2 81 124/78 16 98 0 184.5 25 [facility] [place] [facility] Social History: Smoking Status (Most current) and Tobacco Use (All prior to encounter date) This section includes the most current, and the historical, smoking and tobacco- related health factors from the [place] facility where the Encounter took place. Current Smoking Status This section includes the most current smoking, or tobacco-related health factor, from the [facility] facility where the Encounter took place. Date/Time Current Smoking Status Comment Frederick ity Dec 14, 2022 12:15 PM VA-TOBACCO NEVER USED [facility] Tobacco Use History This section includes a history of the smoking, or tobacco-related health factors, that were collected on or before the date of the Encounter. The data comes from the [place] facility where the Encounter took place. Date/Time Smoking Status/Tobacco Use Comment F acility Jan 10, 2019 10:51 AM VA-TOBACCO NEVER USED [facility] Advance Directives: All historical and current [...] Encounter Note(s) Provider Source Oct 04, 2023 04:32 PM OPTOMETRY NOTE: LOCAL TITLE: OPTOMETRY NOTE(T) STANDARD TITLE: OPTOMETRY NOTE DATE OF NOTE: OCT 04, 2023@16:32 ENTRY DATE: OCT 04, 2023@16:32:09 AUTHOR: ADALID VALDEZ EXP COSIGNER: URGENCY: STATUS: COMPLETED Results were viewed and clinical findings were reviewed with student analytics intern and patient and results are in this note. Assessment and plan are reasonable. 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 Ordered new eyeglasses and recommended lubricating drops to be administered 2-3 times every day OU. Follow-up is scheduled for today. /lalo/ ADALID VALDEZ OD STAFF CHIEF ESTIMATOR Signed: 10/04/2023 16:33 ADALID VALDEZ [facility] Oct 04, 2023 02:54 PM OPTOMETRY NOTE: LOCAL TITLE: OPTOMETRY NOTE(T) STANDARD TITLE: OPTOMETRY NOTE DATE OF NOTE: OCT 04, 2023@14:54 ENTRY DATE: OCT 04, 2023@14:54:10 AUTHOR: ADALID VALDEZ EXP COSIGNER: URGENCY: STATUS: COMPLETED I saw this patient in conjunction with the student and agree to the stated findings and plan after reviewing both history and repeating mullins elements of physical exam. 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 Otherwise no other acute ocular disease was seen today. Recommended patient be administered artificial tears at least 2-3 times a day for reduced acuity OS. Ordered trifocals with photo chromic lenses for glare sensitivity. The patient will return in 6 months or sooner if any problems arise. Monitor acuity OS at that time /es/ ADALID VALDEZ OD STAFF CHIEF ESTIMATOR Signed: 10/04/2023 16:31 [facility] Oct 04, 2023 08:22 AM OPTOMETRY NOTE: LOCAL TITLE: OPTOMETRY NOTE STANDARD TITLE: OPTOMETRY NOTE DATE OF NOTE: OCT 04, 2023@08:22 ENTRY DATE: OCT 04, 2023@08:22:45 AUTHOR: NICOLE BAPTISTE EXP COSIGNER: ADALID VALDEZ URGENCY: STATUS: COMPLETED Active problems - Computerized Problem List is [...] - Cataract 19. HL - Hearing loss Active Outpatient Medications (including Supplies): Active Outpatient [...] PAD TOPICALLY TWICE ACTIVE DAILY NEEDED 10) MULTIVITAMIN/MINERALS CHEW TAB CHEW 1 TABLET BY MOUTH ACTIVE ONCE DAILY FOR VITAMIN SUPPLEMENTATION 11) NUTRITION SUPL ENSURE PLUS/SHIVA LIQUID DRINK 1 CAN BY ACTIVE MOUTH ONCE DAILY FOR NUTRITIONAL SUPPLEMENTATION 12) NYSTATIN 530902 UNT/GM CREAM APPLY A THIN LAYER ACTIVE [...] 100MG BY MOUTH ONCE ACTIVE DAILY NEEDED 16 Total Medications Allergies: LATEX GLOVE All medications including those prescribed by outside VA's, community providers, and all OTC meds were reviewed and reconciled with patient to the best of their abilities. This 88 year old MALE is seen today for FRANCIS RANGEL with DFE 08/2022 Chief Complaint: -Pt presents with his who is speaking on his behalf d/t progressive dementia. reports that he often closes OS and says its too blurry. Home health aid gives him ATs ~1-2x/day. No other complaints reported by the pt or his . 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 -TD OU -RE OU (-) Pain: (-) DOVER: (-) Diplopia: (-) Flashes: (-) Floaters: (-) Amaurosis Fugax/Tia's: (-) Eye Injury: (+) Eye Surgery: CE OU, Nd:YAG OU (-) TBI FOHx: (-) Glaucoma/ARMD/Blindness (-) Smoker/Length of Time/PPD: VITALS (most recent, as listed in the electronic record): B/P: 140/80 (09/13/2023 11:30) Pulse: 66 (09/13/2023 11:30) Temperature: 98.2 F [36.8 C] (09/13/2023 11:30) Weight: 177.6 lb [80.56 kg] (09/11/2023 14:50) Height: 72 in [182.9 cm] (08/14/2020 10:08) BMI: BMI: 24.1 PERTINENT LABS: HEMOGLOBIN A1C TREND Collection DT Spec HGBA1c 03/20/2023 13:10 BLOOD 5.3 08/14/2020 09:50 BLOOD 5.2 07/30/2018 12:31 BLOOD 5.6 Current Rx with last BCVA: OD: +0.75 -1.25 X115 20/25-2 OS: pl -1.50 X060 20/40 ADD: +2.75 20/25- OU DVA ( )sc ( x )cc OD: 20/20 (single letters only) OS: 20/40 (single letters only) Pupils: PERRL (-)APD EOMs: SAFE OU, (-)Pain/Diplopia, downbeat nystagmus OU CVF (facial, peripheral): FTFC OU Retinoscopy: OS: -0.75 -2.00 X060 Final rx: OD: +0.75 -1.25 X115 OS: -0.50 -1.75 X060 Add: +2.75 All the above performed by student, reviewed by attending Anterior segment: Performed by student, repeated by attending Lids: clear OU Conj: white and quiet OU Cornea: clear OU AC: deep and quiet OU Angles: 1:1 N/T OU Iris: flat and clear OU Lens: PCIOL clear and well centered OU s/p YAG OU Tonometry: iCare Performed by student, reviewed by attending OD 09 mmHg OS 09 mmHg Time: 3:45pm Fundus exam: Dilated: XXX Dilating Drops: 1GTT 1 % Tropicamide OU & 1GTT 2.5% Phenylephrine OU (Pt. ed. on side effects, dilation warning given and verbal consent obtained) Patient advised not to drive if they feel they have any symptoms which could affect their ability to drive safely. Patient advised not to engage in any activities which could put themselves or others at risk if they feel they have any symptoms which could affect their ability to perform those activities safely. Performed by student, repeated by attending Vit: syneresis OU C/D: 0.40 OD, 0.40 OS Macula: few drusen OU, (-)SRH/SRF OU PPole: clear OU A/V: 2/3 Vessels: normal caliber OU Periph: flat and intact (-)holes, tears, detachments 360 OU Assessment/Plan: 1. Unspecified vision loss OS - no ocular [...] taken for documentation. Monitor in 6 mos. 2. Pseudophakia OU s/p YAG OU - Pt ed on today's exam findings. - Corrected acuity stable OU, YAG did not improve acuity. IOL clear and well centered OU. - Monitor annually. 3. Dry eye OU - Pt ed on today's findings. Ed on use of warm compress 5 mins/day and AT's up to 4x per day. Refilled ATs today. - Monitor annually. 4. H/o downbeat nystagmus with oscillopsia - pt being followed by neurology for white matter disease and early alzheimer's - Stable. Monitor annually. 5. Hyperopia and Presbyopia OU - New spec rx written for FTW. Ordered 1 duplicate trifocal per pt request - Monitor annually Return to Clinic 6 mos for rx check or sooner prn. [place] Education: After discussion and answering all 's questions, demonstrated and verbalized understanding of diagnosis and treatment. Yes [x] No [ ] Medication Reconciliation: Outpatient: Has the patient been taking medications [...] whether with a VA or non-VA provider. /lalo/ NICOLE BAPTISTE OPTOMETRY STUDENT Signed: 10/04/2023 16:52 /lalo/ ADALID VALDEZ OD STAFF CHIEF ESTIMATOR Cosigned: 10/04/2023 16:53 NICOLE BAPTISTE [place] [facility] [facility]
--- OUTSIDE RECORDS SUMMARY | 2024-03-07 06:43 | XMS_ITS | Encounter Summary ---
Author Name [place] Organization [place] Address [address] [place] [id number] Care Team Providers Care Telephone Order Clerk Name Role Phone RAMONA HUNTER Primary [...] PART B Feb 27, 2017 PART B [id number] ARONGUS,GUSTAVO NRY PATIENT MEDICARE (WNR) MEDICARE (M) PART B Feb 27, 2017 PART B [id number] [phone] ARONGUS,GUSTAVO NRY PATIENT MEDICARE (WNR) MEDICARE (M) PART A Feb 27, 2001 PART A [id number] WILGUS,GUSTAVO NRY PATIENT MEDICARE (WNR) MEDICARE (M) PART A Feb 27, 2001 PART A [id number] WILGUS,HE NRY PATIENT Selected Encounter This section includes the information on record at [place] for the Encounter. Date/Time Encounter Type Encounter Description Reason Pro vider Source Aug 28, 2023 09:58 AM Outpatient Encounter COMMUNITY CARE CONSULT IHE Encounter [...] REHAB MEDICIN [place] [facility] Oct 04, 2023 03:00 PM [facility]UL[facility] [place] [facility] Oct 04, 2023 03:30 PM [facility] [place] [facility] Oct 04, 2023 04:15 PM AMBULATORY - MEDICINE [place] [facility] Nov 28, 2023 08:00 AM [facility] [place] [facility] Dec 08, 2023 08:00 AM AMBULATORY - MEDICINE [facility] Dec 08, 2023 03:00 PM AMBULATORY - REHAB [place]ICIN [place] [facility] Jan 11, 2024 11:25 AM [facility] Social History: Smoking Status (Most [...] 14, 2022 12:15 PM VA-TOBACCO NEVER USED [facility] Tobacco Use History This section includes a history of the smoking, or tobacco-related health factors, that were collected on or before the date of the Encounter. The data comes from the [place] facility where the Encounter took place. Date/Time Smoking Status/Tobacco Use Comment F acility Jan 10, 2019 10:51 AM VA-TOBACCO NEVER USED [place] [facility] [place] [facility] Advance Directives: All historical and current [...] Source Aug 14, 2020 ADVANCE DIRECTIVE CRISTOPHER BENITEZANGELA Encounter Notes: All associated encounter notes This section contains the clinical notes associated to the Encounter. Date/Time Encounter Note(s) Provider Source Aug 28, 2023 09:58 AM NONVA NOTE: LOCAL TITLE: [facility] PRESENTING CARE COORD PLAN STANDARD TITLE: NONVA NOTE DATE OF NOTE: AUG 28, 2023@09:58 ENTRY DATE: AUG 28, 2023@09:58:33 AUTHOR: XOCHITL BARKER EXP COSIGNER: URGENCY: STATUS: COMPLETED Emergency Notification Intake Date Presenting to the Facility: Jul Method of Contact: Notified from ECR worklist Notification ID: [id number] [facility] Name[facility] Hospital: [facility] Address: City: [place] State: [place] Zip Code: Phone : [facility] Point of Contact: Name: María Phone: Chief complaint: COVID POSITIVE TEST, HIGH FEVER, WASN'T ACTING RIGHT,FEVER Primary Diagnosis: FEVER Disposition Admitted Route of Admission: ER Date of Admission: Jul Admitting Diagnosis: FEVER Community Care Provider: Confirm Level of Care: /lalo/ XOCHITL TRAN Signed: 08/28/2023 09:59 Receipt Acknowledged By: 08/28/2023 15:19 /es/ JODI SUTTON RN HBPC preparation center coordinator 08/28/2023 12:28 /es/ RAMONA HUNTER RN,MSN,SERVICE CENTER TECHNICIAN-C HB NURSE PRACTITIONER 08/28/2023 15:35 /es/ Marjorie MARIE,RN,[facility] [place] TRANSFER/TRAVELING COORDINATOR XOCHITL BARKER EXETER
--- OUTSIDE RECORDS SUMMARY | 2024-03-07 06:43 | XMS_ITS | Encounter Summary ---
Author Name Department [place] Organization [facility] Address [address] [place] [address] Care Team Providers Care Truck Repair Service Estimator Name Role Phone RAMONA HUNTER Primary Care [...] PART B Feb 27, 2017 PART B [id number] [phone] REJI,GUSTAVO NRY PATIENT MEDICARE (WNR) MEDICARE (M) PART B Feb 27, 2017 PART B [id number] REJI,GUSTAVO NRY PATIENT MEDICARE (WNR) MEDICARE (M) PART A Feb 27, 2001 PART A [id number] REJI,GUSTAVO NRY PATIENT MEDICARE (WNR) MEDICARE (M) PART A Feb 27, 2001 PART A [id number] [phone] GUSTAVO MENDOZA PATIENT Selected Encounter This section includes the information on record at [place] for the Encounter. Date/Time Encounter Type Encounter Description Reason Pro vider Source Aug 29, 2023 09:58 AM Outpatient Encounter [facility] Nursing (RN / LP) IHE Encounter Template Text not used by [place] Plan of Treatment: Future Appointments (+ 6 months) and Future Tests (+/- 45 days) The Plan of Treatment section includes future care activities for the patient from all [place] [facility] This section includes future appointments [...] REHAB MEDICIN [place] [facility] Oct 04, 2023 03:00 PM AMBULATORY - MEDICINE [facility] [place] [facility] Oct 04, 2023 03:30 PM AMBULATORY - MEDICINE [facility] [place] [facility] Oct 04, 2023 04:15 PM AMBULATORY - MEDICINE [facility] [place] [facility] Nov 28, 2023 08:00 AM AMBULATORY - MEDICINE [facility] [place] [facility] Dec 08, 2023 08:00 AM AMBULATORY - MEDICINE [facility] Dec 08, 2023 03:00 PM AMBULATORY - [place]ICIN [place] [facility] Jan 11, 2024 11:25 AM AMBULATORY - MEDICINE [facility] [place] Social History: Smoking Status (Most current) [...] 14, 2022 12:15 PM [facility] Tobacco Use History This section includes a history of the smoking, or tobacco-related health factors, that were collected on or before the date of the Encounter. The data comes from the [place] facility where the Encounter took place. Date/Time Smoking Status/Tobacco Use Comment F acility Jan 10, 2019 10:51 AM [place]-TOBACCO NEVER USED [place] [facility] [facility] Advance Directives: All historical and [...] Aug 14, 2020 ADVANCE DIRECTIVE CRISTOPHER BENITEZANGELA LD Encounter Notes: All associated encounter notes This section contains the clinical notes associated to the Encounter. Date/Time Encounter Note(s) Provider Source Aug 29, 2023 09:58 AM HBPC NOTE: LOCAL TITLE: [facility] POST INFECTION ASSESSMENT NOTE STANDARD TITLE: HBPC NOTE DATE OF NOTE: AUG 29, 2023@09:58 ENTRY DATE: AUG 29, 2023@09:58:37 AUTHOR: RAÚL FONG EXP COSIGNER: URGENCY: STATUS: COMPLETED POST INFECTION ASSESSMENT NOTE Date of Infection: Aug Aviation Safety Inspector: Jodi Fong RN Type of Infection: Covid 19 Patient Seen in ER: Yes [X] No [ ] Culture Sent: Yes [ ] No [ ] Facility Reporting Culture Results: Abx Prescribed: Yes [ ] No [X] Name of Antibiotic: Ordering Provider: (Please check all that apply) Risk Factors Possibly Contributing to Infection: [ ] Surgical Procedure [ ] BPH/Urinary Retention [ ] COPD [ ] Vascular Insufficiency/Edema [ ] Quintana Catheter [ ] Suprapubic Catheter [ ] Intermittent Catheterization [ ] Other Was [place] discharged from inpatient status 48-72 hours prior to infection? Yes [ ] No [X] If yes, where: Infection Resolved: Yes [ ] No [X] Current Status of Patient: [ ] Home [X] Hospital (Please check all that apply) Interventions: [ ] F/U Medical Visit [X] PCP Notified [ ] PSA Notified [X] Education was provided to patient and/or family regarding infection/infection control /es/ JODI FONG RN HBPC casting molder Signed: 08/29/2023 10:00 Receipt Acknowledged By: 08/29/2023 10:08 /es/ CHANDRAKANT CHUNG HBPC AMSA for [employer] 08/29/2023 10:05 /es/ RAMONA HUNTER RN,MSN,ENROLLMENT CONSULTANT-C HB[facility] NURSE PRACTITIONER ALBERTO [facility]ONG [facility]
--- OUTSIDE RECORDS SUMMARY | 2024-03-07 06:43 | XMS_ITS | Encounter Summary ---
Author Name Department [place] Organization [place] Address [address] [place] [address] Care Team Providers Care Platinumsmith Name Role Phone RAMONA HUNTER Primary Care [...] PART B Feb 27, 2017 PART B [id number] [phone] ARONGUS,GUSTAVO NRY PATIENT MEDICARE (WNR) MEDICARE (M) PART B Feb 27, 2017 PART B [id number] ARONGUS,GUSTAVO NRY PATIENT MEDICARE (WNR) MEDICARE (M) PART A Feb 27, 2001 PART A [id number] [phone] WILGUS,GUSTAVO NRY PATIENT MEDICARE (WNR) MEDICARE (M) PART A Feb 27, 2001 PART A [id number] WILGUS,HE NRY PATIENT Selected Encounter This section includes the information on record at [place] for the Encounter. Date/Time Encounter Type Encounter Description Reason Pro vider Source July 13, 2023 11:53 AM Outpatient Encounter COMMUNITY CARE CONSULT IHE Encounter Template Text not used by [place] Plan of Treatment: Future Appointments (+ 6 months) and Future Tests (+/- 45 days) The Plan of Treatment section includes future care activities for the patient from all [place] treatmentfacilities. This section includes future appointments and future orders which are active, pending or scheduled. Future Appointments This section includes appointments that were scheduled to occur 6 months from the date of the Encounter, up to a maximum of 20 appointments. The data comes from all [place] treatment facilities. Appointment Date/Time Appointment Type Appointme nt Facility Name Oct 04, 2023 02:00 PM AMBULATORY - [place] [facility] Oct 04, 2023 03:00 PM AM[facility]ULATORY - [facility]ICINE [facility] [place] [facility] Oct 04, 2023 03:30 PM AM[facility]ULATORY - [facility]IC[facility] [place] [facility] Oct 04, 2023 04:15 PM AMBULATORY - MEDICINE [place] [facility] Nov 28, 2023 08:00 AM AMBULATORY - [facility] [place] [facility] Dec 08, 2023 08:00 AM AMBULATORY - MEDICINE [facility] Dec 08, 2023 03:00 PM AMBULATORY - [place] [facility] Jan 11, 2024 11:25 AM [facility] Social History: Smoking Status (Most current) and Tobacco Use (All prior to encounter date) This section includes the most current, and the historical, smoking and tobacco- related health factors from the [place] facility where the Encounter took place. Current Smoking Status This section includes the most current smoking, or tobacco-related health factor, from the [place] facility where the Encounter took place. Date/Time Current Smoking Status Phill varner Dec 14, 2022 12:15 PM VA-TOBACCO NEVER USED [facility] Tobacco Use History This section includes a history of the smoking, or tobacco-related health factors, that were collected on or before the date of the Encounter. The data comes from the [place] facility where the Encounter took place. Date/Time Smoking Status/Tobacco Use Comment F acility Jan 10, 2019 10:51 AM VA-TOBACCO NEVER USED [place] CNTR[facility] [facility] Advance Directives: All historical and current Section Date Range: From patient's date of to the date document was created. This section includes ALL of a patient's completed or amended [place] Advance and Rescinded Directives. The entries below indicate that a directive exists for the patient, but an actual copy is not included with this document. The data comes from all [place] facilities. Date Advance Directives Provider Source Aug 14, 2020 ADVANCE DIRECTIVE CRISTOPHER BENITEZ CATHY Encounter Notes: All associated encounter notes This section contains the clinical notes associated to the Encounter. Date/Time Encounter Note(s) Provider Source July 13, 2023 11:53 AM NONVA NOTE: [facility] TITLE: [facility] PRESENTING CARE COORD PLAN STANDARD TITLE: NONVA NOTE DATE OF NOTE: JULY 13, 2023@11:53 ENTRY DATE: JULY 13, 2023@11:54:05 AUTHOR: XOCHITL BARKER EXP COSIGNER: URGENCY: STATUS: COMPLETED Emergency Notification Intake Date Presenting to the Facility: May Method of Contact: Notified from ECR worklist Notification ID: [id number] [facility] Referral #:[id number] [facility] Name: Hospital: [facility] Address: City: [place] State: [place] Zip Code: Phone : [facility] Point of Contact: Name: María Phone: Chief complaint: Fall Primary Diagnosis: Disposition Discharged Date of discharge: May Discharge to Comment: ER Only /llao/ XOCHITL TRAN Signed: 07/13/2023 11:55 Receipt Acknowledged By: 07/13/2023 16:25 /es/ KEAGAN MARINELLI RN, BSN HBPC INTERNET RETAILER for JODI SUTTON 07/13/2023 11:59 /es/ RAMONA HUNTER RN,MSN,COKEMAN-C HB NURSE PRACTITIONER 07/18/2023 13:55 /es/ FABI ESQUIVEL Registered Nurse Manager Of Disaster Recovery XOCHITL BARKER [place]
--- OUTSIDE RECORDS SUMMARY | 2024-03-07 06:43 | XMS_ITS ---
Author Name [facility] [place] Organization [facility] [place] [place] Address [address] [place] [id number] Care Team Providers Care Rn Internship Name Role Phone RAMONA HUNTER Primary Care [...] PART B Feb 27, 2017 PART B [id number] [phone] ARONGUS,GUSTAVO NRY PATIENT MEDICARE (WNR) MEDICARE (M) PART B Feb 27, 2017 PART B [id number] ARONGUS,GUSTAVO NRY PATIENT MEDICARE (WNR) MEDICARE (M) PART A Feb 27, 2001 PART A [id number] WILGUS,GUSTAVO NRY PATIENT MEDICARE (WNR) MEDICARE (M) PART A Feb 27, 2001 PART A [id number] WILGUS,HE NRY PATIENT Selected Encounter This section includes the information on record at [place] for the Encounter. Date/Time Encounter Type Encounter Description Reason Pro vider Source Sep 15, 2023 12:00 PM Outpatient Encounter COMMUNITY CARE CONSULT IHE Encounter Template Text not used by [place] Plan of Treatment: Future Appointments (+ 6 [...] 02:00 PM AMBULATORY - [place]ICIN [place] [facility] [place] [facility] Oct 04, 2023 03:00 PM AMBULATORY - MEDICINE [facility] [place] [facility] Oct 04, 2023 03:30 PM AMBULATORY - MEDICINE [facility] [place] [facility] Oct 04, 2023 04:15 PM AMBULATORY - MEDICINE [place] [facility] [place] [facility] Nov 28, 2023 08:00 AM AMBULATORY - MEDICINE [facility] [place] [facility] Dec 08, 2023 08:00 AM AMBULATORY - MEDICINE [facility] Dec 08, 2023 03:00 PM AMBULATORY - REHAB MEDICIN E [place] [facility] [place] [facility] Jan 11, 2024 11:25 AM [facility] Social History: Smoking Status (Most [...] 14, 2022 12:15 PM [facility]ACCO [facility] Tobacco Use History This section includes a history of the smoking, or tobacco-related health factors, that were collected on or before the date of the Encounter. The data comes from the [place] facility where the Encounter took place. Date/Time Smoking Status/Tobacco Use Comment F acility Jan 10, 2019 10:51 AM [place]-TOBACCO NEVER USED [facility] Advance Directives: All historical and current [...] Encounter. Date/Time Encounter Note(s) Provider Source Sep 15, 2023 12:00 PM CARDIOLOGY CONSULT : LOCAL TITLE: CONSULT REPORT/CARDIOLOGY STANDARD TITLE: CARDIOLOGY CONSULT DATE OF NOTE: SEP 15, 2023@12:00 ENTRY DATE: SEP 29, 2023@13:33:10 AUTHOR: JUAN PABLO REGALADO EXP COSIGNER: URGENCY: STATUS: COMPLETED VistA Imaging - Scanned Document SCANNED DOCUMENT SIGNATURE NOT REQUIRED Electronically Filed: 09/29/2023 by: JUAN PABLO CASEY [facility]
--- OUTSIDE RECORDS SUMMARY | 2024-03-07 06:43 | XMS_ITS | Encounter Summary ---
Author Name [facility] [place] Organization [facility] [place] [place] Address [address] [place] [id number] Care Team Providers Care Application Penetration Tester Name Role Phone RAMONA HUNTER Primary Care [...] PART B Feb 27, 2017 PART B [id number] ARONGUS,GUSTAVO NRY PATIENT MEDICARE (WNR) MEDICARE (M) PART B Feb 27, 2017 PART B [id number] WILGUS,GUSTAVO NRY PATIENT MEDICARE (WNR) MEDICARE (M) PART A Feb 27, 2001 PART A [id number] WILGUS,HE NRY PATIENT MEDICARE (WNR) MEDICARE (M) PART A Feb 27, 2001 PART A [id number] WILGUS,HE NRY PATIENT Selected Encounter This section includes the information on record at [place] for the Encounter. Date/Time Encounter Type Encounter Description Reason Provider Source Aug 14, 2023 12:30 PM MEASURE BLOOD OXYGEN LEVEL [facility] Nursing (RN / LP) ICD-10-CM G30.9 Alzheimer's disease, unspecified JODI SUTTON Yg Encounter Template Text not used by [place] Assessments - Encounter Diagnoses This section includes the primary and secondary diagnoses documented for the Encounter. Date/Time Primary/Secondary Diagnosis Diagnosis Name Provider Source Aug 16, 2023 02:51 PM PRIMARY Alzheimer's disease, unspecified [facility] Aug 16, 2023 02:51 PM SECONDARY Dem in oth dis classd elswhr,unsp sev,w/o beh/psych/mood/anx [facility] [place] [place] [facility] Aug 16, 2023 02:51 PM SECONDARY Unspecified atrial fibrillation DAVID AugustineSUTTER [facility] Plan of Treatment: Future Appointments (+ 6 months) and Future Tests (+/- 45 days) The Plan of Treatment section includes future care activities for the patient [facility] This section includes future appointments [...] REHAB MEDICIN E [place] [facility] [place] [facility] Oct 04, 2023 03:00 PM AMBULATORY - MEDICINE [place] [facility] [place] [place] [facility] Oct 04, 2023 03:30 PM AMBULATORY - MEDICINE [place] [facility] [place] [facility] Oct 04, 2023 04:15 PM AMBULATORY - MEDICINE [place] [facility] [place] [facility] Nov 28, 2023 08:00 AM AMBULATORY - MEDICINE [facility] [facility] Dec 08, 2023 08:00 AM AMBULATORY - MEDICINE [facility] [place] Dec 08, 2023 03:00 PM AMBULATORY - REHAB MEDICIN E [place] [facility] [place] [facility] Jan 11, 2024 11:25 AM AMBULATORY - [facility] Vital Signs: All taken on the encounter date This section contains inpatient and outpatient Vital Signs collected on the date of the Encounter. Date/Time Temperature Pulse Blood Pressure Respiratory Rate SP02 Pain Height Weight Body Mass Index Source Aug 14, 2023 12:30 PM 97.9 73 110/64 16 98 0 [place] [facility] [place] [facility] Social History: Smoking Status (Most [...] 14, 2022 12:15 PM [facility]BACCO [facility] Tobacco Use History This section includes a history of the smoking, or tobacco-related health factors, that were collected on or before the date of the Encounter. The data comes from the [place] facility where the Encounter took place. Date/Time Smoking Status/Tobacco Use Comment F acility Jan 10, 2019 10:51 AM VA-TOBACCO [facility] Advance Directives: All historical and current Section Date Range: From patient's date of to the date document was created. This section includes ALL of a patient's completed or amended [place] Advance and Rescinded Directives. The entries below [...] Encounter. Date/Time Encounter Note(s) Provider Source Aug 14, 2023 12:30 PM [facility] NURSING NOTE: LOCAL TITLE: [facility] RN PROGRESS NOTE STANDARD TITLE: [facility] NURSING NOTE DATE OF NOTE: AUG 14, 2023@12:30 ENTRY DATE: AUG 16, 2023@14:52:15 AUTHOR: RÍOS-DANNI,GABR EXP COSIGNER: URGENCY: STATUS: COMPLETED [...] ACTIVE MOUTH ONCE DAILY FOR NUTRITIONAL SUPPLEMENTATION 10) PANTOPRAZOLE NA 40MG EC TAB TAKE ONE TABLET BY MOUTH ACTIVE TWICE DAILY FOR EXCESSIVE PRODUCTION OF STOMACH ACID 11) PREDNISOLONE ACETATE 1% OPH SUSP INSTILL 1 DROP INTO ACTIVE THE AFFECTED EYE(S) FOUR TIMES A DAY DIRECTED 12) UNDERPAD,BED 30IN X 36IN PLASTIC BACK USE 1 PAD ACTIVE TOPICALLY ONCE DAILY NEEDED FOR PERSONAL CARE 13) ZINC OXIDE 20% OINT APPLY THIN LAYER TOPICALLY ONCE ACTIVE DAILY NEEDED FOR SKIN IRRITATION Active Non-VA Medications Status 1) Non-VA DOCUSATE NA 100MG CAP 100MG BY MOUTH ONCE ACTIVE DAILY NEEDED 14 Total Medications MEDICATION REVIEW Medication review completed [...] in patient's home at time of visit. [place] identified by: Full Name, Address, Facial Recognition Length of visit in home: 30 min Problem addressed for this visit: Compression sock education, Low Bp management NURSING SUMMARY: Visit made to home for Compression sock education, Low Bp management. sitting in recliner eating breakfast upon nurse arrival. LANDSCAPING SUPERVISOR present for visit and Significant other Lakshmi available by phone. alert and oriented to self, pleasant and cooperative. good appetite. No swallowing issues. VSS. Caregiver with daily BP logs ranging in the 130s systolic and mid-60s to 70s diastolic. has had no episodes of dizziness reported. Caregiver reported noncompliance with co pression socks as she finds them too hard to apply. Nurse provided education to LANDSCAPING SUPERVISOR and caregiver on proper placement of compression socks, both voiced understanding. Nurse applied compression socks during visit for visual aid for LANDSCAPING SUPERVISOR. Caregiver reported has a lesion to his left little toe, upon assessment this is scabbed over. No s/s of infection and no drainage noted. Medications reviewed and caregiver voiced compliance. Lakshmi with concerns regarding multivitamin as is labeled children vitamin . Pharmacist informed on caregiver concerns and pharmacist called caregiver Lakshmi for education regarding this matter. No falls, No ER visit and NO hospitalization. Blood Pressure: 110/64 (08/14/2023 12:30) Pulse: 73 (08/14/2023 12:30) Respiration: 16 (08/14/2023 12:30) Temperature: 97.9 F [36.6 C] (08/14/2023 12:30) Pain Score: 0 (08/14/2023 12:30) EXAMINATION: Lungs: Clear throughout bilaterally Edema: none HR: Regular Bowel/Bladder: Regular bowel and bladder report. No s/s of UTI. Skin: Intact Home Safety FALLS NO INFECTIONS NO ER/HOSPITALIZATIONS NO Teaching/goals: See nursing summary above Patient verbalizes understanding to above and will call with any concerns or changes in condition. For emergent care call 911. Plan for next visit: Routine ear irrigation, compression socks compliance, and chronic disease management. scheduled for 09/12/ FLORI MIDDLETON dental lab technician Signed: 08/16/2023 15:06 CRISTOBAL SUTTON [facility]
--- OUTSIDE RECORDS SUMMARY | 2024-03-07 06:44 | XMS_ITS ---
Author Name [facility] [place] [facility] [place] Address [address] [place] [address] Care Team Providers Care Internet Technology Manager Name Role Phone RAMONA HUNTER Primary Care [...] PART B Feb 27, 2017 PART B [id number] REJI,GUSTAVO NRY PATIENT MEDICARE (WNR) MEDICARE (M) PART B Feb 27, 2017 PART B [id number] REJI,GUSTAVO NRY PATIENT MEDICARE (WNR) MEDICARE (M) PART A Feb 27, 2001 PART A [id number] WILGUS,HE NRY PATIENT MEDICARE (WNR) MEDICARE (M) PART A Feb 27, 2001 PART A [id number] GUSTAVO MENDOZA PATIENT Selected Encounter This section includes the information on record at [place] for the Encounter. 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 Date/Time Primary/Secondary Diagnosis Diagnosis Name Provider Source Jun 26, 2023 05:10 PM PRIMARY Unspecified atrial fibrillation RAMONA HUNTER [place] [facility] [place] [facility] Jun 26, 2023 05:10 PM SECONDARY Alzheimer's disease, unspecified VANDANA HUNTERTHIA PA [facility] [place] [facility] Jun 26, 2023 05:10 PM SECONDARY Dem in oth dis classd elswhr,unsp sev,w/o beh/psych/mood/anx ARMONA HUNTER PA [facility] [place] [facility] Jun 26, 2023 05:10 PM SECONDARY Hiccough VANDANA HUNTERTHIA PA [facility] [place] [facility] Jun 26, 2023 05:10 PM 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 This section includes future appointments and future orders which are active, pending or scheduled. Future Appointments This section includes appointments that were scheduled to occur 6 months from the date of the Encounter, up to a maximum of 20 appointments. The data comes from all [place] treatment facilities. Appointment Date/Time Appointment Type Appointme nt Facility Name July 11, 2023 01:45 PM AMBULATORY - MEDICINE [facility] [place] [facility] Oct 04, 2023 02:00 PM AMBULATORY - REHAB MEDICIN E [place] [facility] [place] [facility] Oct 04, 2023 03:00 PM AMBULATORY - MEDICINE [facility] [place] [facility] Oct 04, 2023 03:30 PM AMBULATORY - MEDICINE [facility] C [facility] [place] [facility] Oct 04, 2023 04:15 PM AMBULATORY - MEDICINE PA C [facility] [place] [facility] Nov 28, 2023 08:00 AM AMBULATORY - MEDICINE PA C [facility] [place] [facility] Dec 08, 2023 08:00 AM AMBULATORY - MEDICINE [facility] Dec 08, 2023 03:00 PM AMBULATORY - [facility] Vital Signs: All taken on the encounter date This section contains inpatient and outpatient Vital Signs collected on the date of the Encounter. Date/Time Temperature Pulse Blood Pressure Respiratory Rate SP02 Pain Height Weight Body Mass Index Source Jun 26, 2023 05:03 PM 98.6 77 120/80 16 99 [facility] Social History: Smoking Status (Most current) and Tobacco Use (All prior to encounter date) This section includes the most current, and the historical, smoking and tobacco- related health factors from the [place] facility where the Encounter took place. Current Smoking Status This section includes the most current smoking, or tobacco-related health factor, from the [place] facility where the Encounter took place. Date/Time Current Smoking Status Comment Facil ity Dec 14, 2022 12:15 PM VA-TOBACCO NEVER USED [facility] Tobacco Use History This section includes a history of the smoking, or tobacco-related health factors, that were collected on or before the date of the Encounter. The data comes from the [place] facility where the Encounter took place. Date/Time Smoking Status/Tobacco Use Comment F acility Jan 10, 2019 10:51 AM VA-TOBACCO NEVER USED [facility] Advance Directives: All historical and current Section Date Range: From patient's date of to the date document was created. This section includes ALL of a patient's completed or amended [place] Advance and Rescinded Directives. The entries below indicate that a directive exists for the patient, but an actual copy is not included with this document. The data comes from all [place] facilities. Date Advance Directives Provider Source Aug 14, 2020 ADVANCE DIRECTIVE CRISTOPHER BENITEZ Encounter Notes: All associated encounter notes This section contains the clinical notes associated to the Encounter. Date/Time Encounter Note(s) Provider Source Aug 28, 2023 12:28 PM ADMINISTRATIVE NOTE: LOCAL TITLE: ADMINISTRATIVE NOTE STANDARD TITLE: ADMINISTRATIVE NOTE DATE OF NOTE: AUG 28, 2023@12:28 ENTRY DATE: AUG 28, 2023@12:28:51 AUTHOR: KERI HUNTER COSIGNER: URGENCY: STATUS: COMPLETED SUBJECT: [facility] admit 08/28/23 Patient: DILIA MENDOZA Age: 88 Years Sex: Male : 1935 Chief Complaint/Reason for Consultation Weakness and confusion History of Present Illness Seen and evaluated on 08/28/2023. Dilia is an 88-year-old male who has a history of atrial fibrillation on Eliquis, and dementia with episodic agitation. He presented for evaluation of delirium, slurred speech, and fever times several days. His was diagnosed with COVID-19 2 days ago, [...] showed sinus rhythm with first-degree AV block. He was treated with acetaminophen, and 1 L of NS. At the time of my evaluation he was somnolent, and unable to participate in physical exam. Review of Systems Unable to provide a reliable ROS Objective Measurements Height: 185.9 cm (08/28/23) Weight: 86.9 kg (08/28/23) Dry Weight: 86.9 kg (08/28/23) Body Mass Index: 25.15 kg/m2 High (08/28/23) Vital Signs Temperature: 99.5 DegF (08/28/23 03:00:00) Temperature Route: Oral (08/28/23 02:19:00) Pulse Rate: 98 bpm High (08/28/23 02:19:00) Respiratory Rate: 16 br/min (08/28/23 03:52:00) Systolic Blood Pressure: 123 mm Hg (08/28/23 02:19:00) Diastolic Blood Pressure: 74 mm Hg (08/28/23 02:19:00) Blood pressure sites: Arm, right (08/28/23 02:19:00) Mean Arterial Pressure: 106 mm Hg (08/28/23 00:37:00) Pulse Pressure: 34 mm Hg (08/28/23 00:37:00) Oxygen Saturation: 96 % (08/28/23 02:19:00) Mode of Delivery (Oxygen): Room air (08/28/23 02:19:00) Early Warning Score: 0 (08/28/23 03:53:36) Physical Exam Temperature 99.5 (03:53) Systolic Blood Pressure 129 (03:12) Diastolic Blood Pressure 95 (03:12) Pulse 90 (03:12) SpO2 97 (03:12) Respiratory Rate 16 (03:53) General Appearance: The patient is in NAD. Eyes: EOMI. BHASKAR. No scleral icterus. ENT: MM moist. Dentition intact. Cardiovascular: RRR S1 and S2 heard with no M/R/G. No JVD. Respiratory: No appreciated wheezing. No crackles GI: Soft. Nondistended. Normal bowel sounds present throughout abdomen. MS: No edema or erythema in the lower extremities. Skin: No rashes seen on chest, abdomen. Neuro: Neurologic exam deferred Psych: Somnolent Lines: Peripheral IV in place. Heme/Lymph/Immune: No adenopathy Endocrine: Deferred : Deferred Assessment/Plan Assessment: This is an 88-year-old male who has a history of A-fib, and dementia. He presented for evaluation of delirium, slurred speech, and fever. Workup revealed an elevated Tmax, an elevated BP, and an SaO2 that was WNL. Additional workup revealed modest hyperglycemia, negative CXR, and a CT scan of the brain unremarkable for acute changes. A COVID-19 PCR study was positive. Altered mental status (R41.82) Acute COVID-19 (U07.1): - No oxygen requirements. - Isolation per protocol. - As needed Tylenol. - Supportive care VTE Prophylaxis: - Continue on Eliquis ? VTE Prophylaxis Assessment: VTE Prophylaxis Ordered Discharge Planning: - Anticipated length of stay less than 48 hours. - Likely discharge to home postacute care Ongoing Medical Necessity: - Continue on his other home medications per med rec. These include: Protonix. Code Status: - DO NOT INTUBATE DO NOT RESUSCITATE status ? Order Code Status: Code Status Ordered This note was created using [employer] speech recognition software, there may be unwanted word substitution, typographical errors or grammatical error, an attempt at proofreading has been made to minimize errors. please call if there are any questions regarding plan of care. I spent a total of 60 minutes today reviewing the chart / medical records, evaluating the patient, evaluating and interpreting laboratory and imaging data, formulating and discussing the treatment plan, and documenting the encounter Histories Allergies Allergies (Active and Proposed Allergies Only) Latex (Severity: Unknown severity, Onset: Unknown) Reactions: rash/hives Past Medical History/Problem List Active Problems(5) Afib Dementia GERD (gastroesophageal reflux disease) Intractable hiccups White matter disease Past Surgical History No surgery history documented. Social History Alcohol Details: Use: Never. Substance Abuse Details: Use: Never. Tobacco Details: Use: Never (less than 100 in lifetime). Electronic Cigarette/Vaping Details: Electronic Cigarette Use: Never. Family History No Family History documented. Medications Home Medications apixaban (apixaban Starter Pack 5 mg oral tablet) 2.5 Milligram By Mouth 2 times a day for 14 Days apixaban (Eliquis 2.5 mg oral tablet) 1 tab(s) 2.5 Milligram By Mouth 2 times a day Carbamide Peroxide Otic (Carbamide Peroxide 6.5% Otic) 2 times a day Diclofenac Topical (diclofenac 1% topical gel) 2 gram Topically 4 times a day as needed Arthritis Docusate (Docusate Sodium Capsule) 100 Milligram 1 capsule By Mouth 2 times a day Multivitamin (Multivitamin Tablet) 1 tab(s) By Mouth Daily Ocular Lubricant (Artificial Tears1.4%) 2 Drops Eyes, Both Every 12 hours Dryness. Pantoprazole (pantoprazole 40 mg oral delayed release tablet) 40 Milligram By Mouth 2 times a day for 14 Days Results Recent Labs BLOOD COUNT & DIFF WBC 7.5 k/mm3 () 08/27/2023 23:04 RBC 4.51 m/mm3 (Low) 08/27/2023 23:04 Hgb 13.6 Gm/dL (Low) 08/27/2023 23:04 Hct 39.9 % (Low) 08/27/2023 23:04 MCV 88.5 femtoliters () 08/27/2023 23:04 MCH 30.2 pg () 08/27/2023 23:04 MCHC 34.1 g/dL () 08/27/2023 23:04 Platelet Count 203 k/mm3 () 08/27/2023 23:04 RDW-SD 45.1 femtoliters () 08/27/2023 23:04 MPV 10.2 femtoliters () 08/27/2023 23:04 Nucleated RBC (Automated) 0.0 #/100 WBC'S () 08/27/2023 23:04 Abs. NRBC 0.0 k/mm3 () 08/27/2023 23:04 Abs. Neut 6.3 k/mm3 () 08/27/2023 23:04 Abs. Lymph 0.4 k/mm3 (Low) 08/27/2023 23:04 Abs. Cotton 0.7 k/mm3 () 08/27/2023 23:04 Abs. Eo 0.0 k/mm3 () 08/27/2023 23:04 Abs. Baso 0.1 k/mm3 () 08/27/2023 23:04 Neut % 83.8 % (High) 08/27/2023 23:04 Lymph % 5.6 % (Low) 08/27/2023 23:04 Cotton % 9.0 % () 08/27/2023 23:04 Eos % 0.5 % () 08/27/2023 23:04 Baso % 0.8 % () 08/27/2023 23:04 Imm Gran 0.3 % () 08/27/2023 23:04 Abs. Imm Gran 0.0 k/mm3 () 08/27/2023 23:04 CHEM GENERAL Sodium 138 mmol/L () 08/27/2023 23:04 Potassium 4.1 mmol/L () 08/27/2023 23:04 Chloride 102 mmol/L () 08/27/2023 23:04 Bicarbonate Level 27 mmol/L () 08/27/2023 23:04 Anion Gap 9 () 08/27/2023 23:04 Glucose Level 145 mg/dL (High) 08/27/2023 23:04 BUN 18 mg/dL () 08/27/2023 23:04 Creatinine-Blood 1.29 mg/dL (High) 08/27/2023 23:04 Estimated GFR Creatinine 54 ML/MIN/1.73 M2 () 08/27/2023 23:04 Calcium 8.5 mg/dL (Low) 08/27/2023 23:04 Protein, [...] 08/27/2023 23:04 URINE OTHER Est Creatinine Clearance 45.84 mL/min () 08/27/2023 23:30 VIROLOGY COVID-19 PCR Specimen Source NASAL () 08/27/2023 22:45 COVID-19 PCR Result POSITIVE (Abnormal) 08/27/2023 22:45 Image XR Chest Portable 08/27/2023 23:11 by [facility] COVID-19 PCR Result POSITIVE 08/27/2023 23:39 by Contributor_system , [facility] COVID-19 PCR Specimen Source NASAL 08/27/2023 22:45 by Contributor[employer]system , [facility] end of copy and paste /lalo/ RAMONA HUNTER RN,MSN,DOUBLE CUTTER-C [facility] NURSE PRACTITIONER Signed: 08/28/2023 12:33 Receipt Acknowledged By: 08/28/2023 15:19 /es/ JODI SUTTON RN [facility] assembler dielectric heater 08/28/2023 13:53 /es/ [employer] [facility] MGR JEFF HUNTER PA [facility] [place] [facility] July 11, 2023 12:21 PM ADMINISTRATIVE NOTE: LOCAL TITLE: ADMINISTRATIVE NOTE STANDARD TITLE: ADMINISTRATIVE NOTE DATE OF NOTE: JULY 11, 2023@12:21 ENTRY DATE: JULY 11, 2023@12:21:47 AUTHOR: KERI HUNTER EXP COSIGNER: URGENCY: STATUS: COMPLETED SUBJECT: cardiology 07/11/23 Patient: DILIA MENDOZA Age: 88 Years Sex: Male : 1935 History of Present Illness/Interval History 88 year old male H atrial fibrillation, seen by Elliott GILBERT in consult 05/2023 after he was found in afib. On arrival to [facility] ED he had intractable hiccups/AMS, transferred to [facility] w/ RVR thought 2/2 to reaction to his spasms or sliding hiatal hernia. He was initially started on dig/cardizem however subsequently sustained pauses of 3.4 seconds and taken off these meds. He was started on amiodarone and discharged home on Pantoprazole, Gabapentin (for hiccups), Amiodarone and eliquis. Presents with Lakshmi, life partner. Lakshmi states that it has been feeling improved since he stopped the amiodarone approximately 3 to 4 weeks ago. Patient unfortunately has dementia and has become more agitated, she presents a list of her his blood pressures over the last approximately 4 weeks including orthostatics. Blood pressures have ranged from systolically 110s to 170s with heart rates in in the 1 60-100 range. His orthostatics done approximately 2 weeks ago do show a drop of greater than 20 mg mercury from sitting to standing systolically on 1 day. Lakshmi and Dilia state that he has been feeling well other than his periods of agitation. Is concerned that he is getting anxious. Patient and Lkashmi deny any exertional dyspnea, angina, syncope, orthopnea, PND, LE edema, cough. EKG shows a sinus rhythm with first-degree AV block BP is 117/74 Review of Systems ENT: No ear discharge, ear pain, no neck swelling, no sore throat. Respiratory: No SOB, cough, sputum production. Cardiovascular: No chest pain, palpitations. Gastrointestinal: No abdominal pain, no vomiting, diarrhea. Genitourinary: No polyuria, dysuria. Musculoskeletal: No arthralgia, myalgia's reported. Neuro: No Numbness, no tingling, no motor weakness, no sensory changes. Skin: No rash, pruritus reported. Hematologic: No increased tendency to bleed, purpura noted. Psychiatric: No agitated behavior, no depression, anxiety. All other systems were reviewed and are negative except for the ones mentioned above. Physical Exam Vitals & Measurements HR: 72 (Peripheral) BP: 117/74 SpO2: 99% HT: 185.9 cm WT: 82.95 kg BMI: 24 Weight lb/oz: 182 lb 14 oz General: A & O X 3, not in acute distress. Eye: PERRLA, no redness or discharge HENT: Normocephalic, atraumatic, no bleeding or discharge noted. Cardiac: S1, S2 normal, no murmur or gallop. Resp/Chest wall: CTA, breath sounds normal, no wheeze or rhonchi Abdomen: Soft, non tender, no distension, BS +, no organomegaly appreciated. Neuro: No obvious focal deficits. Psychiatric: Cooperative, appropriate mood and affect. Skin: No rash. Warm to touch Extremities: no pedal edema, no gross deformities noted. Pedal pulses 2+. Assessment/Plan 1. New onset paroxysmal atrial fibrillation:, New onset A-fib after hospitalization for intractable hiccups, started on beta-blockade/CCB however it was held due to to significant bradycardia. He was on amiodarone for several weeks however stopped due to ongoing dizziness. This seems to be improving off the amiodarone, he is currently in a sinus rhythm. He is tolerating AC well, denies GI/ bleed. Today shows sinus rhythm with first- degree AV block, he is clinically euvolemic on exam. Awaiting ZIO XT monitor performed over the last 2 weeks, I assume much of that timeframe will be recorded off of his antiarrhythmic. Plan: -continue Eliquis -ZIO XT monitor pending, patient sent in yesterday. -Follow-up visit to confirm ZIO XT results. Patient will follow-up with attending refrigerator tester within 3 to 6 months, certainly sooner if need be, patient agreed to and voiced understanding of plan Paroxysmal atrial fibrillation Ordered: ECG 12 Lead Allergies Latex (rash/hives) Home Medications apixaban Starter Pack 5 mg oral tablet, 2.5 mg, By Mouth, 2 times a day Artificial Tears1.4%, 2 drops, Eyes, Both, Every 12 hours Carbamide Peroxide 6.5% Otic, 2 times a day carboxymethylcellulose diclofenac 1% topical gel, 2 Gm, Topically, 4 times a day, PRN Docusate Sodium Capsule, 100 mg= 1 capsule, By Mouth, 2 times a day Eliquis 2.5 mg oral tablet, 2.5 mg= 1 tablet, By Mouth, 2 times a day Melatonin, 3 mg, By Mouth, Daily at bedtime, PRN MiraLax oral powder for reconstitution, 17 Gm, By Mouth, Daily Multivitamin Tablet, 1 tablet, By Mouth, Daily pantoprazole 40 mg oral delayed release tablet, 40 mg, By Mouth, 2 times a day Zinc Oxide 20% Ointment Lab Results Cardiology Labs WBC: 5.5 k/mm3 (06/16/23) RBC: 4.56 m/mm3 Low (06/16/23) Hgb: 13.6 Gm/dL Low (06/16/23) Hct: 40.7 % (06/16/23) MCV: 89.3 femtoliters (06/16/23) MCH: 29.8 pg (06/16/23) MCHC: 33.4 g/dL (06/16/23) Platelet Count: 280 k/mm3 (06/16/23) RDW-SD: 44.6 femtoliters (06/16/23) Nucleated RBC (Automated): 0 #/100 WBC'S (06/16/23) Abs. Neut: 3.8 k/mm3 (06/12/23) Abs. Lymph: 1.3 k/mm3 (06/12/23) Abs. Cotton: 0.6 k/mm3 (06/12/23) Abs. Eo: 0.1 k/mm3 (06/12/23) Abs. Baso: 0.1 k/mm3 (06/12/23) Neut %: 65.5 % (06/12/23) Cotton %: 10.3 % (06/12/23) Eos %: 1 % (06/12/23) Baso %: 1 % (06/12/23) Imm Gran: 0.7 % (06/12/23) Abs. Imm Gran: 0 k/mm3 (06/12/23) Sodium: 137 mmol/L (06/17/23) Potassium: 4.3 mmol/L (06/17/23) Chloride: 104 mmol/L (06/17/23) Bicarbonate Level: 28 mmol/L (06/17/23) Glucose Level: 97 mg/dL (06/17/23) BUN: 23 mg/dL (06/17/23) Creatinine-Blood: 1.4 mg/dL High (06/17/23) Calcium: 8.2 mg/dL Low (06/17/23) Protein, Total: 6.4 Gm/dL (06/16/23) Albumin: 3.3 Gm/dL Low (06/16/23) Alkaline Phosphatase: 67 units/L (06/16/23) AST (SGOT): 16 units/L (06/16/23) ALT (SGPT): 22 units/L (06/16/23) Bilirubin, Total: 0.3 mg/dL (06/16/23) Nt-Probnp: 2489 pg/mL High (05/28/23) TSH: 4.45 uIU/mL High (05/29/23) Diagnostic Impression ECG ECG 12-Lead * Preliminary * 13:34:30 Please click on pdf link to open report ECG 12-Lead * Preliminary * 13:34:30 Ventricular Rate: 72 BPM Atrial Rate: 72 BPM P-R Interval: 244 ms QRS Duration: 116 ms Q-T Interval: 416 ms QTC Calculation(Bazett): 455 ms P [place]: 72 degrees R [place]: -15 degrees T [place]: 20 degrees Sinus rhythm with 1st degree A-V block Incomplete right bundle branch block Borderline ECG When compared with ECG of 16-JUN-2023 10:06, Incomplete right bundle branch block has replaced Right bundle branch block [place]: , Echo Echocardiogram - Complete 08:41:10 Summary The left ventricular size is normal. Left ventricular wall thickness is normal. The LV systolic function is normal . The left ventricular ejection fraction is 60-65 %. There are no regional wall motion abnormalities. There is no doppler evidence of increased filling pressures. The right ventricle is normal in size. Right ventricular systolic function appears preserved. Comparison Comparison is made to the study of November 08, 2020. There is no definite interval change. Signature Signed By: Kip Tierney MD Problem List/Past Medical History Ongoing Afib Dementia GERD (gastroesophageal reflux disease) Intractable hiccups White matter disease Procedure/Surgical History No qualifying data available. Social History Alcohol Use: Never. Electronic Cigarette/Vaping Electronic Cigarette Use: Never. Substance Abuse Use: Never. Tobacco Use: Never (less than 100 in lifetime). Family History No family history recorded. end of copy and paste /lalo/ RAMONA HUNTER RN,MSN,DOUBLE CUTTER-C [facility] NURSE PRACTITIONER Signed: 07/12/2023 09:39 Receipt Acknowledged By: 07/12/2023 12:02 /es/ Char Cates RN [facility] assembler dielectric heater for JEFF DENT PA CNT[facility] [place] [facility] Jun 26, 2023 10:13 AM [facility] NURSING NOTE: LOCAL TITLE: [facility] PROGRESS NOTE STANDARD TITLE: [facility] NURSING NOTE DATE OF NOTE: JUN 26, 2023@10:13 ENTRY DATE: JUN 26, 2023@10:13:12 AUTHOR: KERI HUNTER EXP COSIGNER: URGENCY: STATUS: COMPLETED [place] was seen for: ( )routine visit (x) problem visit Identified by name, address and facial recognition: Y VVC Ready: Yes [x] No [ ] Chief complaint:Pt is a 88 seen for follow up of medical problems as noted below. HPI:88 yo M seen for post hospital f/u accompanied by Carlos Martins. Post hospital f/u for Afib w RVR. Had confusion and weakness and went to [facility] 05/28/23. He was transferred to [facility] and had cardiology eval. Noted to have episodes of bradycardia w pauses. Was sent to [place] [facility]. Had afib w RVR reoccurance and was on amiodorone drip tranisioned to po stopped d/t dizziness. s/p fall went to [facility] w right hand abrasion that was glued and steri strips added. Patient has zio monitor on along w telehealth monitoring w f/u w cards mid june. Lakshmi concerned about getting patient their if he is dizzy. Discussed a video visit to review findings and plan should be sufficent. ghazal Gonzalez. PMH: Active problems - Computerized Problem List is the source for the followin. Long-term current use of anticoagulant 2. Atrial fibrillation 3. Exposure to potentially hazardous chemical 4. Lipoma 5. Alzheimer's disease 6. Hiccups 7. Anemia 8. White matter disease 9. Disorder of thyroid gland subclinical hypothyroid 10/11/22 10. Cognitive impairment 11. Actinic keratosis 12. Primary hypertension 04/24/22 echo: LVEF 60-65%, no interval change as compared to 11/08/20 echo 04/21/22 EKG NSR w occ PVC, RBBB 13. Disorder of meniscus of knee s/p surgery on tanya knees 14. Benign prostatic hypertrophy with outflow obstruction s/p what sounds like a turp in 1998 15. Erectile dysfunction 16. SS - Spinal stenosis 17. Cat. - Cataract R 18. HL - Hearing loss Allergies: LATEX GLOVE [...] USE DOSING CARD PROVIDED IN BOX 5) PANTOPRAZOLE NA 40MG EC TAB TAKE ONE TABLET BY MOUTH ACTIVE TWICE DAILY FOR EXCESSIVE PRODUCTION OF STOMACH ACID 6) ZINC OXIDE 20% OINT APPLY THIN LAYER TOPICALLY ONCE ACTIVE DAILY NEEDED FOR SKIN IRRITATION Inactive Outpatient Medications Status 1) MULTIVITAMIN/MINERALS CAP/TAB TAKE 1 TABLET BY MOUTH ONCE DAILY FOR VITAMIN SUPPLEMENTATION Active Non-VA Medications Status 1) Non-VA DOCUSATE NA 100MG CAP 100MG BY MOUTH ONCE ACTIVE DAILY NEEDED 2) Non-VA METOCLOPRAMIDE HCL 10MG TAB 10MG BY MOUTH ACTIVE THREE TIMES DAILY NEEDED 9 Total Medications Recent Falls Y(x) N( ) Recent Infections Y(x) N( ) Recent Hospitalizations Y (x) N( ) SH: SERVICE CONNECTED % - 10 IMPAIRED HEARING 10% SC MARITAL STATUS - Review of systems: per Lakshmi increased urinary incontinence VITAL SIGNS: B/P: 120/80 (06/26/2023 17:03) Pulse: 77 (06/26/2023 17:03) Temperature: 98.6 F [37.0 C] (06/26/2023 17:03) Weight: 188.9 lb [85.68 kg] (04/28/2023 13:30) Height: 72 in [182.9 cm] (08/14/2020 10:08) BMI: BMI: 25.7 Pain: 0 (06/21/2023 13:30) (0-10 scale) Pulse Ox:Measurement DT POx (L/MIN)(%) 06/26/2023 17:03 99 pt is alert and oriented to peron and place. NAD. well kempt, mood appropriate HEENT: +[place] oral mucosa moist NECK: supple, no JVD, lymph nodes not palpable no thyromegaly, no carotid bruits CVS: regular rate and rhythm normal Lungs: clear to auscultation throughout, no use of accessory muscles ABD: Benign, positive BS x 4 EXT: no edema (x)+PP DERM: right hand w steri stips, no warmth, dc or signs of infection Get up and go normal (x)with ( )without assistive device. ( )cane (x) walker and assist w REFINERY OPERATOR HELPER CRACKING UNIT Future Clinic Visits 07/11/2023 13:45 [facility] 10/04/2023 14:00 CWM NO AUDIO EVAL D 10/04/2023 15:30 NHM/OPTOMETRY/BORASKI A/P: Active problems - Computerized Problem List is the source for the following: >Afib w pauses: has zio monitor w cards f/u. ECHO in 04/22 - unremarkable -F/u cards on July 10 Dr. Arreola Continue Eliquis. Eliquis dose decreased to 2.5mg BID as per pharmacy recommendations based on age >80yo and renal function with creatinine 1.5. >Intractable hiccups: Resolved with neurontin which has been stopped. >GERD new pantoprazole 40mg BID. Trial reduction to 40mg daily. Lakshmi reports EGD was attempted inpatient but not completed. >Dementia: CT head unremarkable and labs with no acute abnormalities. Patient is currently at baseline. >FTT: resume ultima replacement as patient was noted to have improvement of sx when using and NA is only 55mg per serving. Cont to push 48 ounces fluid/per day as tolerated Refer to annual assessment 05/11/23 Review of medical records: 10 min Time spent w patient including shared decision makin min Post visit documentation:10 min No barriers; Patient understands and agrees to current treatment plan. Outpt. Medication Reconciliation: Outpatient Medication Reconciliation No [...] documented in this note. /lalo/ RAMONA HUNTER RN,MSN,DOUBLE CUTTER-C [facility] NURSE PRACTITIONER Signed: 06/26/2023 17:10 Receipt Acknowledged By: 06/27/2023 08:31 /lalo/ JODI SUTTON RN [facility] assembler dielectric heater JEFF HUNTER MTZeina [facility]
--- OUTSIDE RECORDS SUMMARY | 2024-03-07 06:44 | XMS_ITS | Encounter Summary ---
Author Name [facility] Address [address] [place] [id number] Care Team Providers Care Buck Swamper Name Role Phone RAMONA HUNTER Primary Care [...] PART B Feb 27, 2017 PART B [id number] [phone] REJI,GUSTAVO NRY PATIENT MEDICARE (WNR) MEDICARE (M) PART B Feb 27, 2017 PART B [id number] REJI,GUSTAVO NRY PATIENT MEDICARE (WNR) MEDICARE (M) PART A Feb 27, 2001 PART A [id number] REJI,HE NRY PATIENT MEDICARE (WNR) MEDICARE (M) PART A Feb 27, 2001 PART A [id number] GUSTAVO MENDOZA PATIENT Selected Encounter This section includes the information on record at [place] for the Encounter. Date/Time Encounter Type Encounter Description Reason Pro vider Source Jun 22, 2023 03:42 PM Outpatient Encounter ADMIN PAT ACTIVTIES (REXNONCT) IHE Encounter Template Text not used by [place] Plan of Treatment: Future Appointments (+ 6 months) and Future Tests (+/- 45 days) The Plan of Treatment section includes future care activities for the [facility] [place] [facility]. This section includes future appointments and future [...] 11, 2023 01:45 PM AMBULATORY - MEDICINE [facility] [place] [facility] Oct 04, 2023 02:00 PM AMBULATORY - REHAB MEDICIN E [place] [facility] Oct 04, 2023 03:00 PM AMBULATORY - MEDICINE [facility] [place] [facility] Oct 04, 2023 03:30 PM AMBULATORY - MEDICINE [facility] [place] [facility] Oct 04, 2023 04:15 PM AMBULATORY - MEDICINE [facility] [place] [facility] Nov 28, 2023 08:00 AM AMBULATORY - MEDICINE [facility] [place] [facility] Dec 08, 2023 08:00 AM [facility]ULATORY [facility] MEDICINE [facility] Dec 08, 2023 03:00 PM [facility] Social History: Smoking Status (Most current) [...] 14, 2022 12:15 PM VA-TOBACCO NEVER USED [facility] Tobacco Use History This section includes a history of the smoking, or tobacco-related health factors, that were collected on or before the date of the Encounter. The data comes from the [place] facility where the Encounter took place. Date/Time Smoking Status/Tobacco Use Comment F acility Jan 10, 2019 10:51 AM ND-TOBACCO NEVER USED [place] [facility] Advance Directives: All historical and [...] Aug 14, 2020 ADVANCE DIRECTIVE CRISTOPHER BENITEZ Radiology Reports: +/- 30 days of the encounter Radiology Reports For cases when an order for radiology services may have been completed prior to the date of the Encounter, the report list includes the Radiology Reports that were completed up to 30 days before dateof the Encounter. For cases when an order for radiology services may have been completed after the date of the Encounter, the report list also includes the Radiology Reports that were completed up to30 days after date of the Encounter. The data comes from all [place] treatment facilities. Date/Time Radiology Report Provider Source May 23, 2023 01:54 PM ULTRASOUND THYROID: DILIA MENDOZA [id number] -1935 M Exm Date: MAY 23, 2023@13:54 Req Phys: RAMONA HUNTER Loc: CWM/NO/HBPC/PACT 2/SNP (Req'g Img Loc: ULTRASOUND Service: Unknown (Case [id number] COMPLETE) ULTRASOUND THYROID (US Detailed) CPT:45550 Reason for Study: evalute soft mobile nodules to left thyroid area Clinical History: patient will be in [place] 05/22 so this day is preferred Report Status: Verified Date Reported: MAY 23, 2023 Date Verified: MAY 23, 2023 Bedspring Assembler E-Sig:/ES/MORENA RUIZ JR Report: Study: Thyroid ultrasound. Comparison: None. Findings: The right lobe of the thyroid measures 3.8 cm in long length x 1.5 cm in AP diameter x 1.6 cm in transverse diameter. Volume of 5 cc. No focal thyroid nodule or mass identified. The thyroid isthmus appears sonographically normal. The left lobe of the thyroid measures 3.4 cm in long length x 1.0 cm in AP diameter x 1.3 cm in transverse diameter. Volume of 2.4 cc with no focal thyroid nodule or mass identified. There is an left-sided extrathyroidal solid, hypoechoic mass in the area of reported left neck lump measuring 2.7 cm transversely by 1.7 cm cephalocaudad by 0.4 cm AP. This mass has several thin internal linear striations paralleling the long length of the mass with no internal color flow, no mural nodules and no internal calcifications identified. 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 Definitive diagnosis may only be available via biopsy. No additional focal soft tissue abnormality or drainable fluid collection is identified. 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 Normal volume is 7-11 cc/lobe. Volume = L x H x W x 0.52. Differences in technique can preclude direct comparisons. *TI-RADS: Ultrasound based management guidance of thyroid nodules. 0 points: cystic, anechoic, wider than tall, smooth border, comet tail artifact, spongiform. 1 point: mixed cystic and solid, hyperechoic, isoechoic, MACROcalcifications. 2 points: solid, hypoechoic, lobulated or irregular margins, peripheral rim calcifications. 3 points: very hypoechoic, taller than wide, extrathyroidal extension, microcalcifications. TR1 (0 points): Spongiform nodules. cysts. Benign, No FNA. No followup indicated. TR2 (2 points): Not suspicious, No FNA. Followup ultrasound 1, 3, and 5 years. TR3 (3 points): Mildly suspicious. FNA if > 2.5 cm, Follow-up if >1.5 cm. Followup ultrasound 1, 3, and 5 years. TR4 (4 to 6 points): Moderately Suspicious. FNA if >1.5 cm. Follow-up if > 1cm. Followup ultrasound every 1, 2, 3, and 5 years. TR5 (7 points or more): Highly Suspicious. FNA if > 1cm. Follow-up if > 0.5cm. Followup ultrasound every year. Features include solid hypoechoic nodule, solid hypoechoic component of the partially cystic nodule, WITH one or more of the following features: Irregular margins, microcalcifications, taller than wide shape, rim calcifications with small extrusive soft tissue component, evidence of extrathyroidal extension SIGNIFICANT CHANGE: is defined as 20% increase in at least 2 nodule dimensions or a greater than 50% increase in volume. * Reference: ACR Thyroid Imaging, Reporting and Data System (TI-RADS): White Paper of the TI-RADS Committee. Mariselsisadora et al., Journal of the [place] [employer] 2017;14:587-595. Primary Diagnostic Code: No immediate attention required Primary Interpreting Staff: MORENA RUIZ JR, Radiologist (Bedspring Assembler) /MORENA CAMPBELL JR [facility] Encounter Notes: All associated encounter notes This section contains the clinical notes associated to the Encounter. Date/Time Encounter Note(s) Provider Source Jun 22, 2023 03:42 PM ADMINISTRATIVE NOTE: LOCAL TITLE: [facility]: SCHEDULING ADMINISTRATION STANDARD TITLE: ADMINISTRATIVE NOTE DATE OF NOTE: JUN 22, 2023@15:42:05 ENTRY DATE: JUN 22, 2023@15:42:05 AUTHOR: RILEY GAMBINO EXP COSIGNER: URGENCY: STATUS: COMPLETED Patient Demographics Patient Name: DILIA MENDOZA Patient Primary Phone: [phone] Patient Primary Address: [address] [place] [address] Patient : 1935 Patient Age: 88 Call Back Number: [phone] Caller/Recipient Relation to Patient: Other If Other Describe Relation to Patient: Home Health Caller Name: Lorenza, from [facility] Administrative Administrative Note Reason: Home Health / Skilled Nursing Administrative Note Comments: Lorenza, from [facility], called to report that patient suffered an unwitnessed fall last night; went to ER and had CT/xrays/exam, and everything was negative. States he did tear the skin on his right hand and was treated with steri-strips and Cefadroxil (500mg q12h x 5days). Please call Lorenza with any questions/concerns. /lalo/ RILEY GAMBINO VISN1 [facility] AMSA Signed: 06/22/2023 15:42 Receipt Acknowledged By: 06/23/2023 08:06 /lalo/ JODI SUTTON RN [facility] wafer batter mixer RILEY GAMBINO [facility]
--- OUTSIDE RECORDS SUMMARY | 2024-03-07 06:44 | XMS_ITS | Encounter Summary ---
Author Name [facility] [place] [place] Organization [facility] [place] [place] Address [address] [place] [id number] Care Team Providers Care Actionscript Developer Name Role Phone RAMONA HUNTER Primary Care Provider Unav ailable FABI BLEDSOE Unavailable Unavailable DON DIAZ Unavailable Unavailable CHAPUT, JOSHUA Unavailable Unavailable RAIVEL, AKTIANA Unavailable Unavailable FEILEN, AYAKA Unavailable Unavailable ÁNGEL, [...] PART B Feb 27, 2017 PART B [id number] WILGUS,HE NRY PATIENT MEDICARE (WNR) MEDICARE (M) PART B Feb 27, 2017 PART B [id number] WILGUS,HE NRY PATIENT MEDICARE (WNR) MEDICARE (M) PART A Feb 27, 2001 PART A [id number] WILGUS,HE NRY PATIENT MEDICARE (WNR) MEDICARE (M) PART A Feb 27, 2001 PART A [id number] [phone] WILGUS,HE NRY PATIENT Selected Encounter This section includes the information on record at CT for the Encounter. Date/Time Encounter Type Encounter Description Reason Pro vider Source Jun 16, 2023 12:00 AM Outpatient Encounter EVENT (HISTORICAL) IHE Encounter Template Text not used by CT Plan of Treatment: Future Appointments (+ 6 months) and Future Tests (+/- 45 days) The Plan of Treatment section includes future care activities for the patient from all CT treatmentfacilities. This section includes future appointments and future orders which are active, pending or scheduled. Future Appointments This section includes appointments that were scheduled to occur 6 months from the date of the Encounter, up to a maximum of 20 appointments. The data comes from all CT treatment facilities. Appointment Date/Time Appointment Type Appointme nt Facility Name July 11, 2023 01:45 PM AMBULATORY - MEDICINE [facility] [place] [facility] Oct 04, 2023 02:00 PM [facility] Oct 04, 2023 03:00 PM AMBULATORY - MEDICINE [facility] [place] [facility] Oct 04, 2023 03:30 PM AMBULATORY - MEDICINE [facility] [place] [facility] Oct 04, 2023 04:15 PM AMBULATORY - MEDICINE [facility] [place] [facility] Nov 28, 2023 08:00 AM AMBULATORY - MEDICINE [facility] [place] [facility] Dec 08, 2023 08:00 AM AMBULATORY - MEDICINE [facility] Dec 08, 2023 03:00 PM AMBULATORY - REHAB MEDICIN E [facility] Lab Results: +/- 30 days of the encounter This section includes the Chemistry and Hematology Lab Results on record with CT for the patient. Radiology Reports and Pathology Reports are provided separately, in subsequent sections. Lab Results This section contains the Chemistry/Hematology Results that were resulted 30 days before or 30 daysafter the date of the Encounter. Date/Time Source Result Type Result - Unit Interpretation Reference Range Comment May 23, 2023 02:11 PM [facility] THYROID T4 FREE(FT4) Specimen Type: SERUM No comment entered. Ordering Provider: Alex HUNTER Report Released Date/Time: May 11, 2023 02:45 PM Reporting Lab: [facility] [place] [facility] [address] [facility] [address] Performing Lab: [place] [facility] [address] [facility] [address] THYROID T4 FREE(FT4) 1.03 ng/dL 0.6-1.6 May 23, 2023 02:11 PM [facility] [place] [facility] THYROID TOTAL T3 Specimen Type: SERUM No comment entered. Ordering Provider: Alex HUNTER Report Released Date/Time: May 11, 2023 02:45 PM Reporting Lab: [facility] [place] [facility] [address] [facility] [address] Performing Lab: [address] [facility] [address] [facility] [address] THYROID TOTAL T3 75.21 ng/dL 35-193 May 23, 2023 02:11 PM [facility] TSH Specimen Type: SERUM No comment entered. Ordering Provider: Alex HUNTER Report Released Date/Time: May 11, 2023 02:45 PM Reporting Lab: [facility] [place] [place] [facility] [address] [facility] [address] Performing Lab: [place] CN[facility]L [facility] [facility] [address] [facility] [address] TSH 4.54 u[IU]/mL 0.35-5.00 May 23, 2023 02:11 PM [facility] PT & INR (PROTIME) Specimen Type: PLASMA No comment entered. Ordering Provider: Alex HUNTER Report Released Date/Time: May 11, 2023 02:45 PM Reporting Lab: [facility] [place] [facility] [address] [facility] [address] Performing Lab: [facility] CN[facility]L [facility] [facility] [address] [address] INR 1.0 PROTIME 11.8 s 10.0-13.1 May 23, 2023 02:11 PM [facility] CBC AND DIFF (AUTO) Specimen Type: BLOOD No comment entered. Ordering Provider: Alex HUNTER Report Released Date/Time: May 11, 2023 02:45 PM Reporting Lab: [facility] [address] [facility] [address] Performing Lab: [facility] [address] [facility] [address] WBC 6.36 10*3/uL 4.50-11.00 RBC 4.94 10*6/uL 4.23-5.66 HGB 14.7 g/dL 12.8-17 HCT 42.9 39.2-50.4 MCV 86.8 fL 82-99 MCHC 34.3 g/dL 30.8-35.1 PLT 226 10*3/uL 140-360 RDW-CV 13.2 12.0-16.0 [place], Abs 0.47 10*3/uL 0.30-1.10 MCH 29.8 pg 26.2-32.6 Neut % 69.4 43.7-75.8 Lymph % 21.5 14.0-42.3 [place] % 7.4 5.1-13.7 Eos % 0.6 0.4-6.8 Baso % 0.8 0.1-2.0 Neut, Abs 4.41 10*3/uL 2.20-7.60 Lymph, Abs 1.37 10*3/uL 1.00-3.20 Eos, Abs 0.04 10*3/uL 0.03-0.44 Baso, Abs 0.05 10*3/uL 0.01-0.13 Immature Gran % 0.3 0.0-0.7 Immature Gran, Abs 0.02 10*3/uL 0.00-0.06 Social History: Smoking Status (Most current) and Tobacco Use (All prior to encounter date) This section includes the most current, and the historical, smoking and tobacco- related health factors from the CT facility where the Encounter took place. Current Smoking Status This section includes the most current smoking, or tobacco-related health factor, from the [place] facility where the Encounter took place. Date/Time Current Smoking Status Comment Facil ity Dec 14, 2022 12:15 PM VA-TOBACCO NEVER USED [facility] Tobacco Use History This section includes a history of the smoking, or tobacco-related health factors, that were collected on or before the date of the Encounter. The data comes from the CT facility where the Encounter took place. Date/Time Smoking Status/Tobacco Use Comment Dane mercado Jan 10, 2019 10:51 AM VA-TOBACCO NEVER USED CT CNTRL [facility] [facility] Advance Directives: All historical and current Section Date Range: From patient's date of to the date document was created. This section includes ALL of a patient's completed or amended CT Advance and Rescinded Directives. The entries below indicate that a directive exists for the patient, but an actual copy is not included with this document. The data comes from all CT facilities. Date Advance Directives Provider Source Aug [...] the Encounter. The data comes from all CT treatment facilities. Date/Time Radiology Report Provider Source May 23, 2023 01:54 PM ULTRASOUND THYROID: DILIA MENDOZA [id number] -1935 M Exm Date: MAY 23, 2023@13:54 Req Phys: RAMONA HUNTER Loc: CWM/NO/HBPC/PACT 2/SNP (Req'g Img Loc: ULTRASOUND Service: Unknown (Case [id number] COMPLETE) ULTRASOUND THYROID (US Detailed) CPT:15237 Reason for Study: evalute soft mobile nodules to left thyroid area Clinical History: patient will be in [place] 05/22 so this day is preferred Report Status: Verified Date Reported: MAY 23, 2023 Date Verified: MAY 23, 2023 Hot Tamale Worker E-Sig:/ES/MORENA RUIZ JR Report: Study: Thyroid ultrasound. [...] (TI-RADS): White Paper of the TI-RADS Committee. Mariselsler et al., Journal of the [place] [employer] 2017;14:587-595. Primary Diagnostic Code: No immediate attention required Primary Interpreting Staff: MORENA RUIZ JR, Radiologist (Hot Tamale Worker) /MORENA CAMPBELL JR CT [place] [place] [facility] May 17, 2023 01:14 PM NECK SOFT TISSUE: DILIA MENDOZA [id number] -1935 M Ex Date: MAY 17, 2023@13:14 Req Phys: RAMONA HUNTER Loc: CWM/NO/HBPC/PACT 2/SRN (Req'g Img Loc: [facility] 1 Service: Unknown (Case [id number] COMPLETE) NECK SOFT TISSUE (RAD Detailed) CPT:09484 Reason for Study: evaluate soft mobile nodules to left thyroid area Clinical History: Please also send to lab Report Status: Verified Date Reported: MAY 17, 2023 Date Verified: MAY 17, 2023 Hot Tamale Worker E-Sig:/ES/MORENA RUIZ JR Report: Study: AP and lateral views of the soft tissues of the neck. Comparison: None. Findings: There is intervertebral disc space narrowing, vertebral endplate sclerosis and anterior osteophytosis at the C5-7 levels which is moderate to severe in degree and consistent with degenerative disc disease. There is overall straightening of the normal cervical lordosis, likely secondary to patient positioning, pain or the degenerative changes.. There is mild lower cervical spine facet and uncovertebral joint hypertrophic change. The bony mineralization is normal. No bony fracture, dislocation or subluxation is identified. The skull base appears normal. The visualized paravertebral soft tissues are normal. Soft tissue neck radiographs are limited in sensitivity for neck masses. CT scan of the neck versus thyroid ultrasound is recommended to better evaluate. Posterior nuchal ligamentous calcifications are present. Impression: No focal soft tissue abnormality identified with degenerative changes in the lower cervical spine, as described above. Primary Diagnostic Code: No immediate attention required Primary Interpreting Staff: MORENA RUIZ JR, Radiologist (Hot Tamale Worker) /MORENA CAMPBELL JR [facility]
--- OUTSIDE RECORDS SUMMARY | 2024-03-07 06:44 | XMS_ITS | Encounter Summary ---
Author Name [facility] [place] Organization [facility] [place] Address [address] [place] [id number] Care Team Providers Care Meat Inspector Name Role Phone RAMONA HUNTER Primary Care [...] PART B Feb 27, 2017 PART B [id number] ARONGUS,GUSTAVO NRY PATIENT MEDICARE (WNR) MEDICARE (M) PART B Feb 27, 2017 PART B [id number] ARONGUS,GUSTAVO NRY PATIENT MEDICARE (WNR) MEDICARE (M) PART A Feb 27, 2001 PART A [id number] ARONGUS,GUSTAVO NRY PATIENT MEDICARE (WNR) MEDICARE (M) PART A Feb 27, 2001 PART A [id number] WILGUS,HE NRY PATIENT Selected Encounter This section includes the information on record at [place] for the Encounter. Date/Time Encounter Type Encounter Description Reason Pro vider Source July 03, 2023 04:39 PM Outpatient Encounter TELEPHONE [facility] IHE Encounter Template Text not used by [place] Plan of Treatment: Future Appointments (+ 6 months) and Future Tests (+/- 45 days) The Plan of Treatment section includes future care activities for the patient from all [place] treatmentfacilities. This section includes future appointments and future orders which are active, pending or scheduled. Future Appointments This section includes appointments that were scheduled to occur 6 months from the date of the Encounter, up to a maximum of 20 appointments. The data comes from all [place] treatment facilities. Appointment Date/Time Appointment Type Appointme nt Facility Name July 11, 2023 01:45 PM AMBULATORY - MEDICINE [facility] [place] [facility] Oct 04, 2023 02:00 PM [facility] Oct 04, 2023 03:00 PM [facility] [place] [facility] Oct 04, 2023 03:30 PM AMBULATORY - MEDICINE [facility] [place] [place] [facility] Oct 04, 2023 04:15 PM AMBULATORY - MEDICINE [facility] [place] [place] [facility] Nov 28, 2023 08:00 AM AMBULATORY - MEDICINE [facility] [place] [facility] Dec 08, 2023 08:00 AM AMBULATORY - MEDICINE [facility] Dec 08, 2023 03:00 PM AMBULAT[facility] Social History: Smoking Status (Most current) and Tobacco Use (All prior to encounter date) This section includes the most current, and the historical, smoking and tobacco- related health factors from the [place] facility where the Encounter took place. Current Smoking Status This section includes the most current smoking, or tobacco-related health factor, from the [place] facility where the Encounter took place. Date/Time Current Smoking Status Phill varner Dec 14, 2022 12:15 PM [place]-TOBACCO NEVER USED [facility] Tobacco Use History This section includes a history of the smoking, or tobacco-related health factors, that were collected on or before the date of the Encounter. The data comes from the [place] facility where the Encounter took place. Date/Time Smoking Status/Tobacco Use Comment F acility Jan 10, 2019 10:51 AM [place] USED [place] [facility] Advance Directives: All historical and current Section Date Range: From patient's date of to the date document was created. This section includes ALL of a patient's completed or amended [place] Advance and Rescinded Directives. The entries below indicate that a directive exists for the patient, but an actual copy is not included with this document. The data comes from all [place] facilities. Date Advance Directives Provider Source Aug 14, 2020 ADVANCE DIRECTIVE CRISTOPHER BENITEZ CATHY Encounter Notes: All associated encounter notes This section contains the clinical notes associated to the Encounter. Date/Time Encounter Note(s) Provider Source July 04, 2023 08:13 AM ADDENDUM: LOCAL TITLE: Addendum STANDARD TITLE: ADDENDUM DATE OF NOTE: JULY 04, 2023@08:13:31 ENTRY DATE: JULY 04, 2023@08:13:32 AUTHOR: KERI HUNTERER: URGENCY: STATUS: COMPLETED Would suggest HORTICULTURAL FARM MANAGER attend cardiology appointment if able and Lakshmi use wheelchair transport to attend appointment. Can patient be measured for compression stockings and then would order 20-30 mmhg compression. /lalo/ RAMONA HUNTER RN,MSN,QUALITY RN-C [facility] NURSE PRACTITIONER Signed: 07/04/2023 08:15 Receipt Acknowledged By: 07/04/2023 08:37 /lalo/ JODI SUTTON RN [facility] application support analyst 07/05/2023 08:36 /lalo/ Lacie Orlando [facility] Occupational Therapist ========= --- Original Document --- 07/03/23 HB TELEPHONE NOTE: Nurse received call from [place] girlfriend Lakshmi who wanted to inform PCP that Charge Poster told her that the visit for 07/10 can't be changed to VVA or telephone as he is a new patient and visit has to be F2F. Lakshmi is not sure she will be able to bring to appointment r/t dizziness. Lakshmi reported she inquired about prescription for compressions to accident examiner and was told to reach out to PCP for prescription. Adding AXMINSTER RUG SETTER to note /lalo/ FLORI MIDDLETON application support analyst Signed: 07/03/2023 16:45 Receipt Acknowledged By: 07/04/2023 08:13 /lalo/ RAMONA HUNTER RN,MSN,QUALITY RN-C [facility] NURSE PRACTITIONER [place]ERI HUNTER [place] [facility] July 03, 2023 04:39 PM [facility] NOTE: LOCAL TITLE: [facility] TELEPHONE NOTE STANDARD TITLE: [facility] NOTE DATE OF NOTE: JULY 03, 2023@16:39 ENTRY DATE: JULY 03, 2023@16:39:24 AUTHOR: RAÚL SUTTON EXP COSIGNER: URGENCY: STATUS: COMPLETED [facility] TELEPHONE NOTE Has ADDENDA Nurse received call from [place] girlfriend Lakshmi who wanted to inform PCP that Charge Poster told her that the visit for 07/10 can't be changed to VVA or telephone as he is a new patient and visit has to be F2F. Lakshmi is not sure she will be able to bring [place] to appointment r/t dizziness. Lakshmi reported she inquired about prescription for compressions to accident examiner and was told to reach out to PCP for prescription. 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 Can patient be measured for compression stockings and then would order 20-30 mmhg compression. /lalo/ RAMONA HUNTER RN,MSN,QUALITY RN-C [facility] NURSE PRACTITIONER Signed: 07/04/2023 08:15 Receipt Acknowledged By: * AWAITING SIGNATURE * JODI SUTTON * AWAITING SIGNATURE * LACIE ORLANDO [facility]
--- OUTSIDE RECORDS SUMMARY | 2024-03-07 06:44 | XMS_ITS | Encounter Summary ---
Author Name [facility] [place] Address [address] [place] [address] Care Team Providers Care Research And Development Tester Name Role Phone RAMONA HUNTER Primary [...] PART B Feb 27, 2017 PART B [id number] ARONGUS,GUSTAVO NRY PATIENT MEDICARE (WNR) MEDICARE (M) PART B Feb 27, 2017 PART B [id number] ARONGUS,GUSTAVO NRY PATIENT MEDICARE (WNR) MEDICARE (M) PART A Feb 27, 2001 PART A [id number] WILGUS,GUSTAVO NRY PATIENT MEDICARE (WNR) MEDICARE (M) PART A Feb 27, 2001 PART A [id number] WILGUS,HE NRY PATIENT Selected Encounter This section includes the information on record at [place] for the Encounter. Date/Time Encounter Type Encounter Description Reason Pro vider Source Jun 19, 2023 12:00 PM Outpatient Encounter [facility] IHE Encounter Template Text not used by [place] Plan of Treatment: Future Appointments (+ 6 months) and Future Tests (+/- 45 days) The Plan of Treatment section includes future care activities for the patient from all [place] treatmentfacilities. This section includes future appointments and future orders which are active, pending or scheduled. Future Appointments This section includes appointments that were scheduled to occur 6 months from the date of the Encounter, up to a maximum of 20 appointments. The data comes from all [place] treatment facilities. Appointment Date/Time Appointment Type Appointme nt Facility Name July 11, 2023 01:45 PM AMBULATORY - MEDICINE [place] [facility] Oct 04, 2023 02:00 PM AMBULATORY - REHAB MEDICIN E [place] [facility] Oct 04, 2023 03:00 PM AMBULATORY - MEDICINE [place] C [place] [facility] Oct 04, 2023 03:30 PM AMBULATORY - MEDICINE [place] C [place] [facility] Oct 04, 2023 04:15 PM AMBULATORY - MEDICINE [place] C [place] [facility] Nov 28, 2023 08:00 AM AMBULATORY - MEDICINE [place] C [place] [facility] Dec 08, 2023 08:00 AM AMBULATORY - MEDICINE [facility] Dec 08, 2023 03:00 PM [facility] Lab Results: +/- 30 days of the encounter This section includes the Chemistry and Hematology Lab Results on record with [place] for the patient. Radiology Reports and Pathology Reports are provided separately, in subsequent sections. Lab Results This section contains the Chemistry/Hematology Results that were resulted 30 days before or 30 daysafter the date of the Encounter. Date/Time Source Result Type Result - Unit Interpretation Reference Range Comment May 23, 2023 02:11 PM [facility] THYROID T4 FREE(FT4) Specimen Type: SERUM No comment entered. Ordering Provider: Alex HUNTER Report Released Date/Time: May 11, 2023 02:45 PM Reporting Lab: [place] [facility] [address] [address] Performing Lab: [place] [facility] [address] [address] THYROID T4 FREE(FT4) 1.03 ng/dL 0.6-1.6 May 23, 2023 02:11 PM [facility] [place] [facility] THYROID TOTAL T3 Specimen Type: SERUM No comment entered. Ordering Provider: Alex HUNTER Report Released Date/Time: May 11, 2023 02:45 PM Reporting Lab: [place] [facility] [address] [address] Performing Lab: [place] [facility] [address] [address] THYROID TOTAL T3 75.21 ng/dL 35-193 May 23, 2023 02:11 PM [facility] TSH Specimen Type: SERUM No comment entered. Ordering Provider: Alex HUNTER Report Released Date/Time: May 11, 2023 02:45 PM Reporting Lab: [facility] [place] [facility] [address] [address] Performing Lab: [place] [facility] [address] [address] TSH 4.54 u[IU]/mL 0.35-5.00 May 23, 2023 02:11 PM [facility] PT & INR (PROTIME) Specimen Type: PLASMA No comment entered. Ordering Provider: Alex HUNTER Report Released Date/Time: May 11, 2023 02:45 PM Reporting Lab: [place] [facility] [address] [address] Performing Lab: [place] [address] [address] INR 1.0 PROTIME 11.8 s 10.0-13.1 May 23, 2023 02:11 PM [facility] CBC AND DIFF (AUTO) Specimen Type: BLOOD No comment entered. Ordering Provider: Alex HUNTER Report Released Date/Time: May 11, 2023 02:45 PM Reporting Lab: [facility] [address] [address] Performing Lab: [facility] [address] [address] WBC 6.36 10*3/uL 4.50-11.00 RBC 4.94 10*6/uL 4.23-5.66 HGB 14.7 g/dL 12.8-17 HCT 42.9 39.2-50.4 MCV 86.8 fL 82-99 MCHC 34.3 g/dL 30.8-35.1 PLT 226 10*3/uL 140-360 RDW-CV 13.2 12.0-16.0 [place], Abs 0.47 10*3/uL 0.30-1.10 MCH 29.8 pg 26.2-32.6 Neut % 69.4 43.7-75.8 Lymph % 21.5 14.0-42.3 [place] % 7.4 5.1-13.7 Eos % 0.6 0.4-6.8 [...] and tobacco- related health factors from the [place] facility where the Encounter took place. Current Smoking Status This section includes the most current smoking, or tobacco-related health factor, from the [place] facility where the Encounter took place. Date/Time Current Smoking Status Comment Facil ity Dec 14, 2022 12:15 PM VA-TOBACCO NEVER USED [facility] Tobacco Use History This section includes a history of the smoking, or tobacco-related health factors, that were collected on or before the date of the Encounter. The data comes from the [place] facility where the Encounter took place. Date/Time Smoking Status/Tobacco Use Comment Dane mercado Jan 10, 2019 10:51 AM [place]-TO[place]ACCO [place] USED [place] [facility] Advance Directives: All historical and current Section Date Range: From patient's date of to the date document was created. This section includes ALL of a patient's completed or amended [place] Advance and Rescinded Directives. The entries below indicate that a directive exists for the patient, but an actual copy is not included with this document. The data comes from all [place] facilities. Date Advance Directives Provider Source Aug [...] the Encounter. The data comes from all [place] treatment facilities. Date/Time Radiology Report Provider Source May 23, 2023 01:54 PM ULTRASOUND THYROID: DILIA MENDOZA [id number] M Exm Date: MAY 23, 2023@13:54 Req Phys: RAMONA HUNTER Loc: CWM/NO/[facility]/PACT 2/SNP (Req'g Img Loc: ULTRASOUND Service: Unknown (Case [id number] COMPLETE) ULTRASOUND THYROID (US Detailed) CPT:39807 Reason for Study: evalute soft mobile nodules to left thyroid area Clinical History: patient will be in [place] 05/22 so this day is preferred Report Status: Verified Date Reported: MAY 23, 2023 Date Verified: MAY 23, 2023 Card Filer E-Sig:/ES/MORENA RUIZ JR Report: Study: Thyroid ultrasound. [...] Committee. Mariselsler et al., Journal of the [employer] 2017;14:587-595. Primary Diagnostic Code: No immediate attention required Primary Interpreting Staff: MORENA RUIZ JR, Radiologist (Card Filer) /MORENA CAMPBELL JR [facility] Encounter Notes: All associated encounter notes This section contains the clinical notes associated to the Encounter. Date/Time Encounter Note(s) Provider Source Jun 19, 2023 12:00 PM NONVA CONSULT: LOCAL TITLE: COMMUNITY CARE-CONSULT RESULT NOTE STANDARD TITLE: NONVA CONSULT DATE OF NOTE: JUN 19, 2023@12:00 ENTRY DATE: JULY 21, 2023@15:12:04 AUTHOR: JUAN PABLO REGALADO EXP COSIGNER: URGENCY: STATUS: COMPLETED VistA Imaging - Scanned Document SCANNED DOCUMENT SIGNATURE NOT REQUIRED Electronically Filed: 07/21/2023 by: JUAN PABLO CASEY [facility]
--- OUTSIDE RECORDS SUMMARY | 2024-03-07 06:44 | XMS_ITS | Encounter Summary ---
Author Name Department of [facility] Affairs ([place]) Organization [facility] ([place] Address [address] [place] [id number] Care Team Providers Care Director Of Product Design Name Role Phone RAMONA HUNTER Primary Care [...] PART B Feb 27, 2017 PART B [id number] [phone] ARONGUS,GUSTAVO NRY PATIENT MEDICARE (WNR) MEDICARE (M) PART B Feb 27, 2017 PART B [id number] ARONGUS,GUSTAVO NRY PATIENT MEDICARE (WNR) MEDICARE (M) PART A Feb 27, 2001 PART A [id number] ARONGUS,GUSTAVO NRY PATIENT MEDICARE (WNR) MEDICARE (M) PART A Feb 27, 2001 PART A [id number] WILGUS,HE NRY PATIENT Selected Encounter This section includes the information on record at [place] for the Encounter. Date/Time Encounter Type Encounter Description Reason Provider Source May 23, 2023 01:00 PM Outpatient Encounter AUDIOLOGY ICD-10-CM Z02.89 Encounter for other administrative examinations JOHANNY CAICEDO IHE Encounter Template Text not used by [place] Assessments - Encounter Diagnoses This section includes the primary and secondary diagnoses documented for the Encounter. Date/Time Primary/Secondary Diagnosis Diagnosis Name Provider Source May 23, 2023 02:27 PM PRIMARY Encounter for other administrative examinations JOHANNY CAICEDO Zena Jaime [place] [facility] [place] [facility] May 23, 2023 02:27 PM SECONDARY Sensorineural hearing loss, bilateral JOHANNY CAICEDO Zena Yeni [place] [facility] [place] [facility] Plan of Treatment: Future Appointments (+ 6 months) and Future Tests (+/- 45 days) The Plan of Treatment section includes future care activities for the patient from all [place] treatmentfacilities. This section includes future appointments and [...] 11, 2023 01:45 PM AMBULATORY - MEDICINE [place] [facility] [place] [facility] Oct 04, 2023 02:00 PM AMBULATORY - REHAB MEDICIN E [place] [facility] [place] [facility] Oct 04, 2023 03:00 PM AMBULATORY - MEDICINE [place] [facility] [place] [facility] Oct 04, 2023 03:30 PM AMBULATORY - MEDICINE [place] [facility] [place] [facility] Oct 04, 2023 04:15 PM AMBULATORY - MEDICINE [facility] [place] [facility] Lab Results: +/- 30 days of the encounter This section includes the Chemistry and Hematology Lab Results on record with [place] for the patient. Radiology Reports and Pathology Reports are provided separately, in subsequent sections. Lab Results This section contains the Chemistry/Hematology Results that were resulted 30 days before or 30 daysafter the date of the Encounter. Date/Time Source Result Type Result - Unit Interpretation Reference Range Comment May 23, 2023 02:11 PM [place] [facility] [place] [facility] THYROID T4 FREE(FT4) Specimen Type: SERUM No comment entered. Ordering Provider: Alex HUNTER Report Released Date/Time: May 11, 2023 02:45 PM Reporting Lab: [facility] [place] [facility] [address] [facility] [address] Performing Lab: [facility] [place] [facility] [address] [facility] [address] THYROID T4 FREE(FT4) 1.03 ng/dL 0.6-1.6 May 23, 2023 02:11 PM [facility] [place] [facility] THYROID TOTAL T3 Specimen Type: SERUM No comment entered. Ordering Provider: Alex HUNTER Report Released Date/Time: May 11, 2023 02:45 PM Reporting Lab: [facility] [place] [facility] [address] [address] Performing Lab: [facility] [place] [facility] [address] [facility] [facility] [address] THYROID TOTAL T3 75.21 ng/dL 35-193 May 23, 2023 02:11 PM [facility] TSH Specimen Type: SERUM No comment entered. Ordering Provider: Alex HUNTER Report Released Date/Time: May 11, 2023 02:45 PM Reporting Lab: [facility] [place] [facility] [address] [facility] [address] Performing Lab: [place] [facility] [place] [facility] [address] [address] TSH 4.54 u[IU]/mL 0.35-5.00 May 23, 2023 02:11 PM [facility] [place] [facility] PT & INR (PROTIME) Specimen Type: PLASMA No comment entered. Ordering Provider: Alex HUNTER Report Released Date/Time: May 11, 2023 02:45 PM Reporting Lab: [facility] [place] [facility] [address] [address] Performing Lab: [place] [facility] [place] [facility] [address] [address] INR 1.0 PROTIME 11.8 s 10.0-13.1 May 23, 2023 02:11 PM [facility] CBC AND DIFF (AUTO) Specimen Type: BLOOD No comment entered. Ordering Provider: Alex HUNTER Report Released Date/Time: May 11, 2023 02:45 PM Reporting Lab: [facility] [address] [address] Performing Lab: [facility] [address] [address] WBC 6.36 10*3/uL 4.50-11.00 RBC 4.94 10*6/uL 4.23-5.66 HGB 14.7 g/dL 12.8-17 HCT 42.9 39.2-50.4 MCV 86.8 fL 82-99 MCHC 34.3 g/dL 30.8-35.1 PLT 226 10*3/uL 140-360 RDW-CV 13.2 12.0-16.0 [place], Abs 0.47 10*3/uL 0.30-1.10 MCH 29.8 pg 26.2-32.6 Neut % 69.4 43.7-75.8 Lymph % 21.5 14.0-42.3 [place] % 7.4 5.1-13.7 Eos % 0.6 0.4-6.8 [...] 14, 2022 12:15 PM VA-TOBACCO NEVER USED [facility] Tobacco Use History This section includes a history of the smoking, or tobacco-related health factors, that were collected on or before the date of the Encounter. The data comes from the [place] facility where the Encounter took place. Date/Time Smoking Status/Tobacco Use Comment Dane acility Jan 10, 2019 10:51 AM VA-TOBACCO NEVER USED [facility] Advance Directives: All historical and current [...] the Encounter. The data comes from all [place] treatment facilities. Date/Time Radiology Report Provider Source May 23, 2023 01:54 PM ULTRASOUND THYROID: DILIA MENDOZA [id number] -[id number] M Exm Date: MAY 23, 2023@13:54 Req Phys: RAMONA HUNTER Loc: CWM/NO/[facility]/PACT 2/SNP (Req'g Img Loc: ULTRASOUND Service: Unknown (Case [id number] COMPLETE) ULTRASOUND THYROID (US Detailed) CPT:17974 Reason for Study: evalute soft mobile nodules to left thyroid area Clinical History: patient will be in [place] 05/22 so this day is preferred Report Status: Verified Date Reported: MAY 23, 2023 Date Verified: MAY 23, 2023 Spectrographer E-Sig:/ES/MORENA RUIZ JR Report: Study: Thyroid ultrasound. [...] Committee. Mariselsler et al., Journal of the [employer] 2017;14:587-595. Primary Diagnostic Code: No immediate attention required Primary Interpreting Staff: MORENA RUIZ JR, Radiologist (Spectrographer) /MORENA CAMPBELL JR [place] [facility] [place] [facility] May 17, 2023 01:14 PM NECK SOFT TISSUE: DILIA MENDOZA [id number] -[id number] M Ex Date: MAY 17, 2023@13:14 Req Phys: RAMONA HUNTER Pat Loc: CWM/NO/[facility]PC/PACT 2/SRN (Req'g Img Loc: [facility] Service: Unknown (Case [id number] COMPLETE) NECK SOFT TISSUE (RAD Detailed) CPT:04306 Reason for Study: evaluate soft mobile nodules to left thyroid area Clinical History: Please also send to lab Report Status: Verified Date Reported: MAY 17, 2023 Date Verified: MAY 17, 2023 Spectrographer E-Sig:/ES/MORENA RUIZ JR Report: Study: AP and [...] Primary Interpreting Staff: MORENA RUIZ JR, Radiologist (Spectrographer) /MORENA CAMPBELL JR [facility] [place] [facility] Encounter Notes: All associated encounter notes This section contains the clinical notes associated to the Encounter. Date/Time Encounter Note(s) Provider Source May 23, 2023 01:00 PM C & P EXAMINATION NOTE: LOCAL TITLE: COMPENSATION AND PENSION EXAM STANDARD TITLE: C & P EXAMINATION NOTE DATE OF NOTE: MAY 23, 2023@13:00 ENTRY DATE: MAY 23, 2023@15:50:17 AUTHOR: DIPESH CAICEDO COSIGNER: URGENCY: STATUS: COMPLETED Hearing Loss and Tinnitus Disability Benefits Questionnaire Name of patient/[place]: REJI DILIA BRIGID Is this DBQ being completed in conjunction with a [place] [id number], C&P Examination Request? [X] Yes [ ] No How was the examination completed? (check all that apply) [X] In-person examination [X] Records reviewed [ ] Examination via approved video telehealth [ ] Other, please specify in comments box Comments: JEFF and Evidence Review Indicate method used to obtain medical information to complete this document: [ ] Review of available records (without in-person or video telehealth examination) using the Acceptable Clinical Evidence (JEFF) process because the existing medical evidence provided sufficient information on which to prepare the questionnaire and such an examination will likely provide no additional relevant evidence. [ ] Review of available records in conjunction with an interview with the (without in-person or telehealth examination) using the JEFF process because the existing medical evidence supplemented with an interview provided sufficient information on which to prepare the questionnaire and such an examination would likely provide no additional relevant evidence. 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 Objective Findings a. Puretone thresholds in decibels (air conduction): RIGHT EAR + + A B C D E F G ========+========+======= =+========+========+====== ==+========+========+ 500 1000 2000 3000 4000 6000 8000 Avg Hz Hz* Hz Hz Hz Hz Hz Hz (B-E) ========+========+======= =+========+========+====== ==+========+======== 45 50 65 60 70 75 85 [id number] + + LEFT EAR + + A B C D E F G ========+========+======= =+========+========+====== ==+========+========+ 500 1000 2000 3000 4000 6000 8000 Avg Hz Hz* Hz Hz Hz Hz Hz Hz (B-E) ========+========+======= =+========+========+====== ==+========+======== 50 50 55 70 70 75 75 [id number] + + * The puretone threshold at 500 Hz is not used in determining the evaluation but is used in determining whether or not a ratable hearing loss exists. The average of B, C, D, and E. CNT - Could Not Test b. Were there one or more frequency(ies) that could not be tested: No c. Validity of puretone test results: Test results are valid for rating purposes. d. Speech Discrimination Score ([facility] word list): + + RIGHT EAR CNT% +========= LEFT EAR CNT% + + e. Appropriateness of Use of Word Recognition Score ([place] [facility] word list): Right Ear: Is Word Discrimination Score available? No Word Discrimination Score appropriateness: The use of the speech recognition score is not appropriate for this because of language difficulties, cognitive problems, inconsistent speech recognition scores, etc., that make combined use of puretone average and speech recognition scores inappropriate. Left Ear: Is Word Discrimination Score available? No Word Discrimination Score appropriateness: The use of the speech recognition score is not appropriate for this [place] because of language difficulties, cognitive problems, inconsistent speech recognition scores, etc., that make combined use of puretone average and speech recognition scores inappropriate. f. Audiologic Findings Summary of Immittance (Tympanometry) Findings: + + RIGHT EAR LEFT EAR +=== += Acoustic immittance [X] Normal [ ] Abnormal [ ] Normal [X] Abnormal +=== += Ipsilateral Acoustic Reflexes [ ] Normal [X] Abnormal [ ] Normal [X] Abnormal +=== += Contralateral Acoustic Reflexes [ ] Normal [X] Abnormal [ ] Normal [X] Abnormal +=== += Unable to interpret reflexes due to [ ] [ ] artifact +=== += Unable to obtain/ maintain seal [ ] [ ] + + 2. Diagnosis RIGHT EAR --------- [ ] Normal hearing [ ] Conductive hearing loss ICD code: [ ] Mixed hearing loss ICD code: [X] Sensorineural hearing loss (in the frequency range of 500-4000 Hz)* ICD code: H90.3 [ ] Sensorineural hearing loss (in the frequency range of 6000 Hz or higher frequencies) ICD code: [ ] Significant changes in hearing thresholds in service LEFT EAR -------- [ ] Normal hearing [ ] Conductive hearing loss ICD code: [ ] Mixed hearing loss ICD code: [X] Sensorineural hearing loss (in the frequency range of 500-4000 Hz)* ICD code: H90.3 [ ] Sensorineural hearing loss (in the frequency range of 6000 Hz or higher frequencies) ICD code: [ ] Significant changes in hearing thresholds in service NOTES: * The may have hearing loss at a level that is not considered to be a disability for VA purposes. This can occur when the auditory thresholds are greater than 25 dB at one or more frequencies in the 500-4000 Hz range. The may have impaired hearing, but it does not meet the criteria to be considered a disability for VA purposes. For VA purposes, the diagnosis of hearing impairment is based upon testing at frequency ranges of 500, 1000, 2000, 3000, and 4000 Hz. If there is no HL in the 500-4000 Hz range, but there is HL above 4000 Hz, check this box. The may have a significant change in hearing threshold in service, but it does not meet the criteria to be considered a disability for VA purposes. (A significant change in hearing threshold may indicate noise exposure or acoustic trauma.) 3. Etiology Right Ear Was there a permanent positive threshold shift (worse than reference threshold) greater than normal measurement variability at any frequency between 500 and 6000 Hz for the right ear? No Opinion provided for the right ear: Yes If present, is the [place]'s right ear hearing loss at least as not (likelihood is at least approximately balanced or nearly equal, if not higher) caused by or a result of an event in service? 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 Whisper tests and spoken voice tests do not provide frequency specific information, therefore hearing levels at time of active duty enlistment are unknown. As such, significant threshold shifts cannot be ruled out at time of separation. Given that 's MOS was highly probable for exposure to hazardous noise, and hearing levels are unknown at time of active duty enlistment, 's hearing loss is at least as likely as not a result of service. Left Ear Was there a permanent positive threshold shift (worse than reference threshold) greater than normal measurement variability at any frequency between 500 and 6000 Hz for the left ear? No Opinion provided for the left ear: Yes If present, is the [place]'s left ear hearing loss at least as not (likelihood is at least approximately balanced or nearly equal, if not higher) caused by or a result of an event in service? 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 Whisper tests and spoken voice tests do not provide frequency specific information, therefore hearing levels at time of active duty enlistment are unknown. As such, significant threshold shifts cannot be ruled out at time of separation. Given that 's MOS was highly probable for exposure to hazardous noise, and hearing levels are unknown at time of active duty enlistment, 's hearing loss is at least as likely as not a result of service. 4. Functional impact of hearing loss Does the 's hearing loss impact ordinary conditions of daily life, including ability to work: No 5. Remarks, if any, pertaining to hearing loss: was not able to provide a comprehensive history due to cognitive limitations. SECTION 2: TINNITUS 1. Medical history Does the [place] report recurrent tinnitus: No 2. Etiology of tinnitus: No response provided 3. Functional impact of tinnitus ------ Does the 's tinnitus impact ordinary conditions of daily life, including ability to work: No response provided 4. Remarks, if any, pertaining to tinnitus: denied tinnitus when asked if he gets any noises in his ears (ringing, buzzing, hissing, humming, chirping, etc.) NOTE: [place] may request additional medical information, including additional examinations if necessary to complete VA's review of the [place]'s application. /lalo/ Yanelis Boone, FISH-A Cnc Mill Programmer Signed: 05/23/2023 15:50 DIPESH CAICEDO [place] [facility]
--- OUTSIDE RECORDS SUMMARY | 2024-03-07 06:44 | XMS_ITS ---
Author Name [facility] [facility] [place] Organization [facility] [place] Address [address] [place] [address] Care Team Providers Care Weekend Receptionist Name Role Phone RAMONA HUNTER Primary Care [...] PART B Feb 27, 2017 PART B [id number] [phone] REJI,GUSTAVO NRY PATIENT MEDICARE (WNR) MEDICARE (M) PART B Feb 27, 2017 PART B [id number] REJI,GUSTAVO NRY PATIENT MEDICARE (WNR) MEDICARE (M) PART A Feb 27, 2001 PART A [id number] WILGUS,HE NRY PATIENT MEDICARE (WNR) MEDICARE (M) PART A Feb 27, 2001 PART A [id number] GUSTAVO MENDOZA PATIENT Selected Encounter This section includes the information on record at [place] for the Encounter. Date/Time Encounter Type Encounter Description Reason Pro vider Source June 29, 2023 09:44 AM Outpatient Encounter [facility] PHYSIC EXTND(CHIEF HUMAN RESOURCES OFFICER,RESIDENTIAL TEAM LEADER,PA) IHE Encounter Template Text not used by [place] Plan of Treatment: Future Appointments (+ 6 months) and Future Tests (+/- 45 days) The Plan of Treatment section includes future care activities for the patient from all [place] treatmentfacilities. This section includes future appointments and [...] 11, 2023 01:45 PM AMBULATORY - MEDICINE [facility] [place] [facility] Oct 04, 2023 02:00 PM AMBULATORY - REHAB MEDICIN [place] [facility] [place] [facility] Oct 04, 2023 03:00 PM AMBULATORY - MEDICINE [facility] [place] [facility] Oct 04, 2023 03:30 PM AMBULATORY - MEDICINE [facility] [place] [facility] Oct 04, 2023 04:15 PM AMBULATORY - MEDICINE [facility] [place] [facility] Nov 28, 2023 08:00 AM AMBULATORY - MEDICINE [facility] [place] [facility] Dec 08, 2023 08:00 AM AMBULATORY - MEDICINE [facility] Dec 08, 2023 03:00 PM [facility] Social History: Smoking Status (Most current) [...] 14, 2022 12:15 PM VA-TOBACCO NEVER USED [facility] Tobacco Use History This section includes a history of the smoking, or tobacco-related health factors, that were collected on or before the date of the Encounter. The data comes from the [place] facility where the Encounter took place. Date/Time Smoking Status/Tobacco Use Comment Dane acility Jan 10, 2019 10:51 AM VA-TOBACCO NEVER USED [facility] Advance Directives: All historical and current Section [...] the Encounter. Date/Time Encounter Note(s) Provider Source June 29, 2023 09:44 AM ADMINISTRATIVE NOTE: LOCAL TITLE: FAX/MAIL RECEIVED STANDARD TITLE: ADMINISTRATIVE NOTE DATE OF NOTE: JUNE 29, 2023@09:44 ENTRY DATE: JUNE 29, 2023@09:44:31 AUTHOR: CHANDRAKANT CHUNG EXP COSIGNER: URGENCY: STATUS: COMPLETED Document Received On: June Document Type: Emergency Department Note Date of Service: May Facility and or Provider: [facility] Contact Information: PCP of Record: RAMONA HUNTER Next visit with PCP: 07/11/2023 13:45 COM CARE-CARDIOLOGY 10/04/2023 14:00 [facility] NO AUDIO EVAL D 10/04/2023 15:30 [facility]/OPTOMETRY/[facility] May keep copies of this document for up to 14 days and send the original for scanning. /lalo/ CHANDRAKANT ABLTAZAR AMSA Signed: 06/29/2023 09:44 Receipt Acknowledged By: 06/29/2023 11:57 /es/ JODI SUTTON RN [facility] lead sewage plant operator 06/29/2023 10:03 /es/ [facility] NURSE PRACTITIONER for RAMONA CHANDRAKANT MARLEY [facility]
--- OUTSIDE RECORDS SUMMARY | 2024-03-07 06:44 | XMS_ITS | Encounter Summary ---
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 Date/Time Encounter Type Encounter Description Reason Pro vider Source Jun 18, 2023 12:00 AM Outpatient Encounter EVENT (HISTORICAL) IHE Encounter Template Text not used by [place] Plan of Treatment: Future Appointments (+ 6 months) and Future Tests (+/- 45 days) The Plan of Treatment section includes future care activities for the patient from all [place] treatmentfacilities. This section includes future appointments and future orders which are active, pending or scheduled. Future Appointments This section includes appointments that were scheduled to occur 6 months from the date of the Encounter, up to a maximum of 20 appointments. The data comes from all [place] treatment facilities. Appointment Date/Time Appointment Type Appointme nt Facility Name July 11, 2023 01:45 PM AMBULATORY - MEDICINE [facility] [place] [facility] Oct 04, 2023 02:00 PM [facility] Oct 04, 2023 03:00 PM [facility] - MEDICINE [facility] [place] [facility] Oct 04, 2023 03:30 PM AMBULATORY - MEDICINE [facility] [place] [place] [facility] Oct 04, 2023 04:15 PM AMBULATORY - MEDICINE [facility] [facility] Nov 28, 2023 08:00 AM AMBULATORY - MEDICINE [facility] [place] [facility] Dec 08, 2023 08:00 AM [facility]ULATORY - MEDICINE [facility] Dec 08, 2023 03:00 PM AMBULATORY - REHAB MEDICIN E [facility] Lab Results: +/- 30 days of the encounter This section includes the Chemistry and Hematology Lab Results on record with [place] for the patient. Radiology Reports and Pathology Reports are provided separately, in subsequent sections. Lab Results This section contains the Chemistry/Hematology Results that were resulted 30 days before or 30 daysafter the date of the Encounter. Date/Time Source Result Type Result - Unit Interpretation Reference Range Comment May 23, 2023 02:11 PM [facility] THYROID T4 FREE(FT4) Specimen Type: SERUM No comment entered. Ordering Provider: Alex HUNTER Report Released Date/Time: May 11, 2023 02:45 PM Reporting Lab: [facility] [place] [facility] [address] [facility] [address] Performing Lab: [place] [facility] [facility] [address] [facility] [address] THYROID T4 FREE(FT4) 1.03 ng/dL 0.6-1.6 May 23, 2023 02:11 PM [facility] [place] [facility] THYROID TOTAL T3 Specimen Type: SERUM No comment entered. Ordering Provider: Alex HUNTER Report Released Date/Time: May 11, 2023 02:45 PM Reporting [facility] [place] [facility] [address] [facility] [address] Performing Lab: [place] [facility] [address] [address] THYROID TOTAL T3 75.21 ng/dL 35-193 May 23, 2023 02:11 PM [facility] TSH Specimen Type: SERUM No comment entered. Ordering Provider: Alex HUNTER Report Released Date/Time: May 11, 2023 02:45 PM Reporting Lab: [facility] [place] [facility] [address] [facility] [address] Performing Lab: [place] [facility] [address] [facility] [address] TSH 4.54 u[IU]/mL 0.35-5.00 May 23, 2023 02:11 PM [facility] PT & INR (PROTIME) Specimen Type: PLASMA No comment entered. Ordering Provider: Alex HUNTER Report Released Date/Time: May 11, 2023 02:45 PM Reporting Lab: [facility] [place] [facility] [address] [facility] [address] Performing Lab: [place] [facility] [address] [address] INR 1.0 PROTIME 11.8 s 10.0-13.1 May 23, 2023 02:11 PM [facility] CBC AND DIFF (AUTO) Specimen Type: BLOOD No comment entered. Ordering Provider: Alex HUNTER Report Released Date/Time: May 11, 2023 02:45 PM Reporting Lab: [facility] [address] [facility] [address] Performing Lab: [facility] [address] [facility] [address] WBC 6.36 10*3/uL 4.50-11.00 RBC 4.94 10*6/uL 4.23-5.66 HGB 14.7 g/dL 12.8-17 HCT 42.9 39.2-50.4 MCV 86.8 fL 82-99 MCHC 34.3 g/dL 30.8-35.1 PLT 226 10*3/uL 140-360 RDW-CV 13.2 12.0-16.0 [place], Abs 0.47 10*3/uL 0.30-1.10 MCH 29.8 pg 26.2-32.6 Neut % 69.4 43.7-75.8 Lymph % 21.5 14.0-42.3 [place] % 7.4 5.1-13.7 Eos % 0.6 0.4-6.8 [...] and tobacco- related health factors from the [place] facility where the Encounter took place. Current Smoking Status This section includes the most current smoking, or tobacco-related health factor, from the [place] facility where the Encounter took place. Date/Time Current Smoking Status Comment Facil ity Dec 14, 2022 12:15 PM VA-TOBACCO NEVER USED [facility] Tobacco Use History This section includes a history of the smoking, or tobacco-related health factors, that were collected on or before the date of the Encounter. The data comes from the [place] facility where the Encounter took place. Date/Time Smoking Status/Tobacco Use Comment Dane mercado Jan 10, 2019 10:51 AM VA-TOBACCO NEVER USED [place] [facility] Advance Directives: All historical and current Section Date Range: From patient's date of to the date document was created. This section includes ALL of a patient's completed or amended [place] Advance and Rescinded Directives. The entries below indicate that a directive exists for the patient, but an actual copy is not included with this document. The data comes from all [place] facilities. Date Advance Directives Provider Source Aug [...] the Encounter. The data comes from all [place] treatment facilities. Date/Time Radiology Report Provider Source May 23, 2023 01:54 PM ULTRASOUND THYROID: DILIA MENDOZA [id number] M Exm Date: MAY 23, 2023@13:54 Req Phys: RAMONA HUNTER Loc: CWM/NO/HBPC/PACT 2/SNP (Req'g Img Loc: ULTRASOUND Service: Unknown (Case [id number] COMPLETE) ULTRASOUND THYROID (US Detailed) CPT:54267 Reason for Study: evalute soft mobile nodules to left thyroid area Clinical History: patient will be in [place] 05/22 so this day is preferred Report Status: Verified Date Reported: MAY 23, 2023 Date Verified: MAY 23, 2023 [place] Supervisor E-Sig:/ES/MORENA RUIZ JR Report: Study: Thyroid ultrasound. [...] Committee. Mariselsler et al., Journal of the [employer] 2017;14:587-595. Primary Diagnostic Code: No immediate attention required Primary Interpreting Staff: MORENA RUIZ JR, Radiologist ([place] Supervisor) /MORENA CAMPBELL JR [facility] Encounter Notes: All associated encounter notes This section contains the clinical notes associated to the Encounter. Date/Time Encounter Note(s) Provider Source Jun 18, 2023 12:00 AM NONVA NOTE: LOCAL TITLE: NON-[facility] STANDARD TITLE: NONVA NOTE DATE OF NOTE: JUN 18, 2023 ENTRY DATE: JULY 03, 2023@08:11:50 AUTHOR: EVY RAMIREZ COSIGNER: URGENCY: STATUS: COMPLETED VistA Imaging - Scanned Document SCANNED DOCUMENT SIGNATURE NOT REQUIRED Electronically Filed: 07/03/2023 by: HENNY RAMIREZ Poultry Farmworker HENNY RAMIREZ [facility]
--- OUTSIDE RECORDS SUMMARY | 2024-03-07 06:44 | XMS_ITS | Encounter Summary ---
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 Date/Time Encounter Type Encounter Description Reason Pro vider Source Jun 24, 2023 12:00 AM Outpatient Encounter EVENT (HISTORICAL) [...] 11, 2023 01:45 PM AMBULATORY - MEDICINE [facility] [place] [facility] Oct 04, 2023 02:00 PM [facility] Oct 04, 2023 03:00 PM AMBULAT[facility] - MEDICINE [facility] [place] [facility] Oct 04, 2023 03:30 PM AMBULATORY - MEDICINE [facility] [place] [facility] Oct 04, 2023 04:15 PM AMBULATORY - MEDICINE [facility] [place] [facility] Nov 28, 2023 08:00 AM AMBULATORY - MEDICINE [facility] [place] [facility] Dec 08, 2023 08:00 AM AMBULATORY - MEDICINE [facility] Dec 08, 2023 03:00 PM [facility] Social History: Smoking Status (Most current) [...] 14, 2022 12:15 PM VA-TOBACCO NEVER USED [facility] Tobacco Use History This section includes a history of the smoking, or tobacco-related health factors, that were collected on or before the date of the Encounter. The data comes from the [place] facility where the Encounter took place. Date/Time Smoking Status/Tobacco Use Comment F acility Jan 10, 2019 10:[address]-TOBACCO NEVER USED [facility] Advance Directives: All historical and current Section [...] Encounter. Date/Time Encounter Note(s) Provider Source Jun 24, 2023 12:00 AM NONVA NOTE: LOCAL TITLE: [facility] STANDARD TITLE: NONVA NOTE DATE OF NOTE: JUN 24, 2023 ENTRY DATE: JULY 03, 2023@08:09:22 AUTHOR: EVY RAMIREZ COSIGNER: URGENCY: STATUS: COMPLETED VistA Imaging - Scanned Document SCANNED DOCUMENT SIGNATURE NOT REQUIRED Electronically Filed: 07/03/2023 by: HENNY RAMIREZ Telephone Directory Deliverer HENNY RAMIREZ [facility]
--- OUTSIDE RECORDS SUMMARY | 2024-03-07 06:44 | XMS_ITS ---
Author Name [facility] [place] [facility] [place] Address [address] [place] [id number] Care Team Providers Care Team Facilitator Name Role Phone RAMONA HUNTER Primary Care [...] PART B Feb 27, 2017 PART B [id number] ARONGUS,GUSTAVO NRY PATIENT MEDICARE (WNR) MEDICARE (M) PART B Feb 27, 2017 PART B [id number] [phone] WILGUS,GUSTAVO NRY PATIENT MEDICARE (WNR) MEDICARE (M) PART A Feb 27, 2001 PART A [id number] WILGUS,HE NRY PATIENT MEDICARE (WNR) MEDICARE (M) PART A Feb 27, 2001 PART A [id number] WILGUS,HE NRY PATIENT Selected Encounter This section includes the information on record at [place] for the Encounter. Date/Time Encounter Type Encounter Description Reason Provider Source Jun 21, 2023 01:30 PM MEASURE BLOOD OXYGEN LEVEL [facility] Nursing (RN / LP) ICD-10-CM I48.91 Unspecified atrial fibrillation DAVID AugustineJODI Yg Encounter Template Text not used by [place] Assessments - Encounter Diagnoses This section includes the primary and secondary diagnoses documented for the Encounter. Date/Time Primary/Secondary Diagnosis Diagnosis Name Provider Source Jun 25, 2023 11:12 PM PRIMARY Unspecified atrial fibrillation [facility] [place] [facility] Jun 25, 2023 11:12 PM SECONDARY Hiccough [facility] [place] [facility] Plan of Treatment: Future Appointments (+ 6 months) and Future Tests (+/- 45 days) The Plan of Treatment section includes future care activities for the patient from all [place] treatmentfacilities. This section includes future appointments and future orders which are active, pending or scheduled. Future Appointments This section includes appointments that were scheduled to occur 6 months from the date of the Encounter, up to a maximum of 20 appointments. The data comes from all [place] treatment facilities. Appointment Date/Time Appointment Type Appointme nt Facility Name July 11, 2023 01:45 PM AMBULATORY - MEDICINE [facility] [place] [facility] Oct 04, 2023 02:00 PM AMBULATORY - [place]HAB [place]ICIN [place] [facility] [place] [facility] Oct 04, 2023 03:00 PM AM[place]UL[place]ORY - [place]ICINE [place] [facility] [place] [facility] Oct 04, 2023 03:30 PM AM[place]UL[place]ORY - [place]ICINE [place] [facility] [place] [facility] Oct 04, 2023 04:15 PM AM[place]UL[place]ORY - [place]ICINE [place] [facility] [place] [facility] Nov 28, 2023 08:00 AM AM[place]UL[place]ORY - [place]ICINE [place] [facility] [place] [facility] Dec 08, 2023 08:00 AM AMBULATORY - MEDICINE [facility] Dec 08, 2023 03:00 PM AMBULATORY - REHAB MEDICIN E [facility] [place] [facility] Lab Results: +/- 30 days of the encounter This section includes the Chemistry and Hematology Lab Results on record with [place] for the patient. Radiology Reports and Pathology Reports are provided separately, in subsequent sections. Lab Results This section contains the Chemistry/Hematology Results that were resulted 30 days before or 30 daysafter the date of the Encounter. Date/Time Source Result Type Result - Unit Interpretation Reference Range Comment May 23, 2023 02:11 PM [facility] [place] [facility] THYROID T4 FREE(FT4) Specimen Type: SERUM No comment entered. Ordering Provider: Alex HUNTER Report Released Date/Time: May 11, 2023 02:45 PM Reporting Lab: [place] [facility] [place] [facility] [address] [facility] [facility] [address] Performing Lab: [place] [facility] [place] [facility] [address] [facility] [address] THYROID T4 FREE(FT4) 1.03 ng/dL 0.6-1.6 May 23, 2023 02:11 PM [facility] THYROID TOTAL T3 Specimen Type: SERUM No comment entered. Ordering Provider: Alex HUNTER Report Released Date/Time: May 11, 2023 02:45 PM Reporting Lab: [facility] [place] [facility] [address] [facility] [address] Performing Lab: [facility] [place] [facility] [address] [facility] [address] THYROID TOTAL T3 75.21 ng/dL 35-193 May 23, 2023 02:11 PM [facility] TSH Specimen Type: SERUM No comment entered. Ordering Provider: Alex HUNTER Report Released Date/Time: May 11, 2023 02:45 PM Reporting Lab: [facility] [place] [facility] [address] [facility] [address] Performing Lab: [facility] [place] [address] [address] TSH 4.54 u[IU]/mL 0.35-5.00 May 23, 2023 02:11 PM [facility] PT & INR (PROTIME) Specimen Type: PLASMA No comment entered. Ordering Provider: Alex HUNTER Report Released Date/Time: May 11, 2023 02:45 PM Reporting Lab: [facility] [address] [facility] [address] Performing Lab: [address] [address] INR 1.0 PROTIME 11.8 s 10.0-13.1 May 23, 2023 02:11 PM [facility] CBC AND DIFF (AUTO) Specimen Type: BLOOD No comment entered. Ordering Provider: Alex HUNTER Report Released Date/Time: May 11, 2023 02:45 PM Reporting Lab: [address] [address] Performing Lab: [address] [address] WBC 6.36 10*3/uL 4.50-11.00 RBC 4.94 10*6/uL 4.23-5.66 HGB 14.7 g/dL 12.8-17 HCT 42.9 39.2-50.4 MCV 86.8 fL 82-99 MCHC 34.3 g/dL 30.8-35.1 PLT 226 10*3/uL 140-360 RDW-CV 13.2 12.0-16.0 [place], Abs 0.47 10*3/uL 0.30-1.10 MCH 29.8 pg 26.2-32.6 Neut % 69.4 43.7-75.8 Lymph % 21.5 14.0-42.3 [place] % 7.4 5.1-13.7 Eos % 0.6 0.4-6.8 Baso % 0.8 0.1-2.0 Neut, Abs 4.41 10*3/uL 2.20-7.60 Lymph, Abs 1.37 10*3/uL 1.00-3.20 Eos, Abs 0.04 10*3/uL 0.03-0.44 Baso, Abs 0.05 10*3/uL 0.01-0.13 Immature Gran % 0.3 0.0-0.7 Immature Gran, Abs 0.02 10*3/uL 0.00-0.06 Vital Signs: All taken on the encounter date This section contains inpatient and outpatient Vital Signs collected on the date of the Encounter. Date/Time Temperature Pulse Blood Pressure Respiratory Rate SP02 Pain Height Weight Body Mass Index Source Jun 21, 2023 01:30 PM 98.2 66 140/70 16 98 0 [facility] [employer] [facility] Social History: Smoking Status (Most current) and Tobacco Use (All prior to encounter date) This section includes the most current, and the historical, smoking and tobacco- related health factors from the [place] facility where the Encounter took place. Current Smoking Status This section includes the most current smoking, or tobacco-related health factor, from the [place] facility where the Encounter took place. Date/Time Current Smoking Status Comment Facil ity Dec 14, 2022 12:15 PM VA-TOBACCO NEVER USED [facility] [facility] Tobacco Use History This section includes a history of the smoking, or tobacco-related health factors, that were collected on or before the date of the Encounter. The data comes from the [place] facility where the Encounter took place. Date/Time Smoking Status/Tobacco Use Comment F acility Jan 10, 2019 10:51 AM VA-TOBACCO NEVER USED [facility] Advance Directives: All historical and current Section Date Range: From patient's date of to the date document was created. This section includes ALL of a patient's completed or amended [place] Advance and Rescinded Directives. The entries below indicate that a directive exists for the patient, but an actual copy is not included with this document. The data comes from all [place] facilities. Date Advance Directives Provider Source Aug [...] the Encounter. The data comes from all [place] treatment facilities. Date/Time Radiology Report Provider Source May 23, 2023 01:54 PM ULTRASOUND THYROID: DILIA MNEDOZA [id number] M Exm Date: MAY 23, 2023@13:54 Req Phys: RAMONA HUNTER Loc: CWM/NO/[facility]/PACT 2/SNP (Req'g Img Loc: ULTRASOUND Service: Unknown (Case [id number] COMPLETE) ULTRASOUND THYROID (US Detailed) CPT:18894 Reason for Study: evalute soft mobile nodules to left thyroid area Clinical History: patient will be in [place] 05/22 so this day is preferred Report Status: Verified Date Reported: MAY 23, 2023 Date Verified: MAY 23, 2023 Broadcast Transmitter Operator E-Sig:/ES/MORENA RUIZ JR Report: Study: Thyroid ultrasound. [...] (TI-RADS): White Paper of the TI-RADS Committee. Tessler et al., Journal of the [place] [employer] 2017;14:587-595. Primary Diagnostic Code: No immediate attention required Primary Interpreting Staff: MORENA RUIZ JR, Radiologist (Broadcast Transmitter Operator) /MORENA CAMPBELL JR [facility] Encounter Notes: All associated encounter notes This section contains the clinical notes associated to the Encounter. Date/Time Encounter Note(s) Provider Source Jun 26, 2023 09:48 AM ADDENDUM: LOCAL TITLE: Addendum STANDARD TITLE: ADDENDUM DATE OF NOTE: JUN 26, 2023@09:48:05 ENTRY DATE: JUN 26, 2023@09:48:05 AUTHOR: DON DIAZ EXP COSIGNER: URGENCY: STATUS: COMPLETED FWD: Kailash Damon RDN who is following this . Thank you /lalo/ DON DIAZ STAFF DIETITIAN Signed: 06/26/2023 09:48 Receipt Acknowledged By: 07/04/2023 14:51 /es/ LEBRON DAMON RD, [place] REGISTERED DIETITIAN --- Original Document --- 06/21/23 [facility] RN PROGRESS NOTE: Nursing Progress Note Active and Recently Outpatient Medications (including Supplies): Active Outpatient Medications Status 1) APIXABAN 2.5MG TAB TAKE ONE TABLET BY MOUTH EVERY 12 ACTIVE HOURS FOR PREVENTION OF BLOOD CLOTS 2) BRIEF,PROTECTIVE SUPER ABS MED ATTENDS USE 1 BRIEF ACTIVE DIRECTED ONCE [...] USE GLOVE(S) ONCE ACTIVE DAILY NEEDED 8) PANTOPRAZOLE NA 40MG EC TAB TAKE ONE TABLET BY MOUTH ACTIVE TWICE DAILY FOR EXCESSIVE PRODUCTION OF STOMACH ACID 9) UNDERPAD,BED 30IN X 36IN PLASTIC BACK USE 1 PAD ACTIVE TOPICALLY ONCE DAILY NEEDED FOR PERSONAL CARE 10) ZINC OXIDE 20% OINT APPLY THIN [...] in patient's home at time of visit. [place] identified by: Full Name, Address, Facial Recognition Length of visit in home: 60 min Problem addressed for this visit: A fib, hiccups, weakness, incontinence NURSING SUMMARY: Visit made to home for post hospital follow up with new diagnosis of a fib on anticoagulation. [place] sitting in recliner upon nurse arrival, significant other Lakshmi and ONION FARMER present for visit. discharged home with services through [facility] for SN, OT and PT. Caregiver reports that has had no episodes of hiccups and she inquired about decreasing and potentially stopping gabapentin as she feels this medication make sluggish which contributed to the incontinence episodes at night. [facility] nurse contacted provider who gave instruction to delbert gabapentin for discontinuation. [place] girlfriend is to decrease Gabapentin to once daily x 3 days then stop, Lakshmi voiced understanding and is in agreement with plan. [place] with new diagnosis of A fib, nurse provided education on disease process, medication precautions and s/s to report. Lakshmi voiced understanding and is engage in education. has appointment with instructional technology facilitator on 07/10. Per Lakshmi she is waiting for Heart monitor to be delivered as is going to have this on for two weeks once it arrives. Lakshmi also reported that [facility] is setting up telehealth in the coming week. VSS. No c/o pain at this time. + voiding. [place] had some constipation a few days back, had bowel movement today. caregiver inquiring about stool softener prescription. Lakshmi also inquired about an electrolyte liquids as doesn't drink enough fluids. Lakshmi reports she tries to at least have drink 32 oz but it's hard at times. No falls, No ER visits and No hospitalizations since discharge on 06/16 Blood Pressure: 140/70 (06/21/2023 13:30) Pulse: 66 (06/21/2023 13:30) Respiration: 16 (06/21/2023 13:30) Temperature: 98.2 F [36.8 C] (06/21/2023 13:30) Pain Score: 0 (06/21/2023 13:30) EXAMINATION: Lungs: Clear throughout Edema: None HR: regular Bowel/Bladder: Incontinence of urine since this hospitalization. was constipated for a few days, had bowel movement today. Caregiver inquiring about prescription for stool softener Skin: intact Home Safety FALLS NO INFECTIONS NO ER/HOSPITALIZATIONS NO Teaching/goals: See nursing summary above Patient verbalizes understanding to above and will call with any concerns or changes in condition. For emergent care call 911. Plan for next visit: Routine assessment, chronic disease management/teaching, fall precaution, incontinence, and care coordination. /lalo/ JODI SUTTON RN HB ad setter Signed: 06/25/2023 23:31 Receipt Acknowledged By: 06/26/2023 08:15 /lalo/ RAMONA HUNTER RN,MSN,SENIOR MORTGAGE UNDERWRITER-C [facility] NURSE PRACTITIONER 06/25/2023 ADDENDUM STATUS: COMPLETED Caregiver inquiring about prescription for Ensure, could you please follow up and evaluate for appropriateness. Thank you /lalo/ JODI SUTTON RN [facility] ad setter Signed: 06/25/2023 23:35 Receipt Acknowledged By: 06/26/2023 09:47 /lalo/ DON DIAZ STAFF DIETITIDON PERALES [place] [facility] Jun 25, 2023 11:32 PM ADDENDUM: LOCAL TITLE: Addendum STANDARD TITLE: ADDENDUM DATE OF NOTE: JUN 25, 2023@23:32:39 ENTRY DATE: JUN 25, 2023@23:32:40 AUTHOR: RAÚL SUTTON COSIGNER: URGENCY: STATUS: COMPLETED Caregiver inquiring about prescription for Ensure, could you please follow up and evaluate for appropriateness. Thank you /lalo/ JODI SUTTON RN [facility] ad setter Signed: 06/25/2023 23:35 Receipt Acknowledged By: 06/26/2023 09:47 /lalo/ DON DIAZ STAFF DIETITIAN --- Original Document --- 06/21/23 GIOVANNY RN PROGRESS NOTE: Nursing Progress Note Active and Recently Outpatient Medications (including Supplies): Active Outpatient Medications Status 1) APIXABAN 2.5MG TAB TAKE ONE TABLET BY MOUTH EVERY 12 ACTIVE HOURS FOR PREVENTION OF BLOOD CLOTS 2) BRIEF,PROTECTIVE SUPER ABS MED ATTENDS USE 1 BRIEF ACTIVE DIRECTED ONCE [...] USE GLOVE(S) ONCE ACTIVE DAILY NEEDED 8) PANTOPRAZOLE NA 40MG EC TAB TAKE ONE TABLET BY MOUTH ACTIVE TWICE DAILY FOR EXCESSIVE PRODUCTION OF STOMACH ACID 9) UNDERPAD,BED 30IN X 36IN PLASTIC BACK USE 1 PAD ACTIVE TOPICALLY ONCE DAILY NEEDED FOR PERSONAL CARE 10) ZINC OXIDE 20% OINT APPLY THIN [...] in patient's home at time of visit. [place] identified by: Full Name, Address, Facial Recognition Length of visit in home: 60 min Problem addressed for this visit: A fib, hiccups, weakness, incontinence NURSING SUMMARY: Visit made to home for post hospital follow up with new diagnosis of a fib on anticoagulation. sitting in recliner upon nurse arrival, significant other Lakshmi and DERIK present for visit. [place] discharged home with services through [facility] for SN, OT and PT. Caregiver reports that has had no episodes of hiccups and she inquired about decreasing and potentially stopping gabapentin as she feels this medication make sluggish which contributed to the incontinence episodes at night. [facility] nurse contacted provider who gave instruction to delbert gabapentin for discontinuation. girlfriend is to decrease Gabapentin to once daily x 3 days then stop, Lakshmi voiced understanding and is in agreement with plan. [place] with new diagnosis of A fib, nurse provided education on disease process, medication precautions and s/s to report. Lakshmi voiced understanding and is engage in education. [place] has appointment with instructional technology facilitator on 07/10. Per Lakshmi she is waiting for Heart monitor to be delivered as is going to have this on for two weeks once it arrives. Lakshmi also reported that [facility] is setting up telehealth in the coming week. VSS. No c/o pain at this time. + voiding. [place] had some constipation a few days back, had bowel movement today. caregiver inquiring about stool softener prescription. Lakshmi also inquired about an electrolyte liquids as doesn't drink enough fluids. Lakshmi reports she tries to at least have drink 32 oz but it's hard at times. No falls, No ER visits and No hospitalizations since discharge on 06/16 Blood Pressure: 140/70 (06/21/2023 13:30) Pulse: 66 (06/21/2023 13:30) Respiration: 16 (06/21/2023 13:30) Temperature: 98.2 F [36.8 C] (06/21/2023 13:30) Pain Score: 0 (06/21/2023 13:30) EXAMINATION: Lungs: Clear throughout Edema: None HR: regular Bowel/Bladder: Incontinence of urine since this hospitalization. [place] was constipated for a few days, had bowel movement today. Caregiver inquiring about prescription for stool softener Skin: intact Home Safety FALLS NO INFECTIONS NO ER/HOSPITALIZATIONS NO Teaching/goals: See nursing summary above Patient verbalizes understanding to above and will call with any concerns or changes in condition. For emergent care call 911. Plan for next visit: Routine assessment, chronic disease management/teaching, fall precaution, incontinence, and care coordination. /lalo/ JODI SUTTNO RN [facility] ad setter Signed: 06/25/2023 23:31 Receipt Acknowledged By: 06/26/2023 08:15 /lalo/ RAMONA HUNTER RN,MSN,SENIOR MORTGAGE UNDERWRITER-C [facility] NURSE PRACTITIONER 06/26/2023 ADDENDUM STATUS: UNSIGNED You may not VIEW this UNSIGNED Addendum. CRISTOBAL SUTTON [facility] Jun 21, 2023 01:30 PM [facility] NURSING NOTE: LOCAL TITLE: [facility] RN PROGRESS NOTE STANDARD TITLE: [facility] NURSING NOTE DATE OF NOTE: JUN 21, 2023@13:30 ENTRY DATE: JUN 25, 2023@23:12:44 AUTHOR: RAÚL SUTTON EXP COSIGNER: URGENCY: STATUS: COMPLETED [facility] RN PROGRESS NOTE Has ADDENDA Nursing Progress Note Active and Recently Outpatient Medications (including Supplies): Active Outpatient Medications Status 1) APIXABAN 2.5MG TAB TAKE ONE TABLET BY MOUTH EVERY 12 ACTIVE HOURS FOR PREVENTION OF BLOOD CLOTS 2) BRIEF,PROTECTIVE SUPER ABS MED ATTENDS USE 1 BRIEF ACTIVE DIRECTED ONCE [...] USE GLOVE(S) ONCE ACTIVE DAILY NEEDED 8) PANTOPRAZOLE NA 40MG EC TAB TAKE ONE TABLET BY MOUTH ACTIVE TWICE DAILY FOR EXCESSIVE PRODUCTION OF STOMACH ACID 9) UNDERPAD,BED 30IN X 36IN PLASTIC BACK USE 1 PAD ACTIVE TOPICALLY ONCE DAILY NEEDED FOR PERSONAL CARE 10) ZINC OXIDE 20% OINT APPLY THIN [...] in patient's home at time of visit. [place] identified by: Full Name, Address, Facial Recognition Length of visit in home: 60 min Problem addressed for this visit: A fib, hiccups, weakness, incontinence NURSING SUMMARY: Visit made to home for post hospital follow up with new diagnosis of a fib on anticoagulation. [place] sitting in recliner upon nurse arrival, significant other Lakshmi and ONION FARMER present for visit. [place] discharged home with services through [facility] for SN, OT and PT. Caregiver reports that has had no episodes of hiccups and she inquired about decreasing and potentially stopping gabapentin as she feels this medication make sluggish which contributed to the incontinence episodes at night. [facility] nurse contacted provider who gave instruction to delbert gabapentin for discontinuation. [place] girlfriend is to decrease Gabapentin to once daily x 3 days then stop, Lakshmi voiced understanding and is in agreement with plan. with new diagnosis of A fib, nurse provided education on disease process, medication precautions and s/s to report. Lakshmi voiced understanding and is engage in education. has appointment with instructional technology facilitator on 07/10. Per Lakshmi she is waiting for Heart monitor to be delivered as is going to have this on for two weeks once it arrives. Lakshmi also reported that [facility] is setting up telehealth in the coming week. VSS. No c/o pain at this time. + voiding. had some constipation a few days back, had bowel movement today. caregiver inquiring about stool softener prescription. Lakshmi also inquired about an electrolyte liquids as doesn't drink enough fluids. Lakshmi reports she tries to at least have [place] drink 32 oz but it's hard at times. No falls, No ER visits and No hospitalizations since discharge on 06/16 Blood Pressure: 140/70 (06/21/2023 13:30) Pulse: 66 (06/21/2023 13:30) Respiration: 16 (06/21/2023 13:30) Temperature: 98.2 F [36.8 C] (06/21/2023 13:30) Pain Score: 0 (06/21/2023 13:30) EXAMINATION: Lungs: Clear throughout Edema: None HR: regular Bowel/Bladder: Incontinence of urine since this hospitalization. [place] was constipated for a few days, had bowel movement today. Caregiver inquiring about prescription for stool softener Skin: intact Home Safety FALLS NO INFECTIONS NO ER/HOSPITALIZATIONS NO Teaching/goals: See nursing summary above Patient verbalizes understanding to above and will call with any concerns or changes in condition. For emergent care call 911. Plan for next visit: Routine assessment, chronic disease management/teaching, fall precaution, incontinence, and care coordination. /lalo/ JODI SUTTON, RN [facility] ad setter Signed: 06/25/2023 23:31 Receipt Acknowledged By: 06/26/2023 08:15 /lalo/ RAMONA HUNTER RN,MSN,SENIOR MORTGAGE UNDERWRITER-C [facility] NURSE PRACTITIONER 06/25/2023 ADDENDUM STATUS: COMPLETED Caregiver inquiring about prescription for Ensure, could you please follow up and evaluate for appropriateness. Thank you /lalo/ JODI SUTTON, RN [facility] ad setter Signed: 06/25/2023 23:35 Receipt Acknowledged By: 06/26/2023 09:47 /lalo/ DON DIAZ STAFF DIETITIAN 06/26/2023 ADDENDUM STATUS: COMPLETED FWD: Kailash Damon RDN who is following this . Thank you /lalo/ DON DIAZ STAFF DIETITIAN Signed: 06/26/2023 09:48 Receipt Acknowledged By: * AWAITING SIGNATURE * [facility]BRON DAMON[facility]
--- OUTSIDE RECORDS SUMMARY | 2024-03-07 06:44 | XMS_ITS ---
Author Name [facility] [place] Organization [facility] [place] [place] Address [address] [place] [address] Care Team Providers Care Finisher Hand Name Role Phone RAMONA HUNTER Primary Care [...] PART B Feb 27, 2017 PART B [id number] [phone] ARONGUS,GUSTAVO NRY PATIENT MEDICARE (WNR) MEDICARE (M) PART B Feb 27, 2017 PART B [id number] [phone] ARONGUS,GUSTAVO NRY PATIENT MEDICARE (WNR) MEDICARE (M) PART A Feb 27, 2001 PART A [id number] [phone] WILGUS,GUSTAVO NRY PATIENT MEDICARE (WNR) MEDICARE (M) PART A Feb 27, 2001 PART A [id number] WILGUS,HE NRY PATIENT Selected Encounter This section includes the information on record at [place] for the Encounter. Date/Time Encounter Type Encounter Description Reason Pro vider Source Jun 06, 2023 12:16 PM Outpatient Encounter TELEPHONE CASE MANAGEMENT IHE Encounter Template Text not used by MA Plan of Treatment: Future Appointments (+ 6 months) and Future Tests (+/- 45 days) The Plan of Treatment section includes future care activities for the patient from all [place] treatmentfacilities. This section includes future appointments and future orders which are active, pending or scheduled. Future Appointments This section includes appointments that were scheduled to occur 6 months from the date of the Encounter, up to a maximum of 20 appointments. The data comes from all [place] treatment facilities. Appointment Date/Time Appointment Type Appointme nt Facility Name July 11, 2023 01:45 PM AMBULATORY - MEDICINE [place] [facility] [place] [facility] Oct 04, 2023 02:00 PM AMBULATORY - REHAB MEDICIN E [place] [facility] [place] [facility] Oct 04, 2023 03:00 PM AMBULATORY - MEDICINE MA C [facility] [place] [facility] Oct 04, 2023 03:30 PM AMBULATORY - MEDICINE MA C [facility] [place] [facility] Oct 04, 2023 04:15 PM AMBULATORY - MEDICINE MA C [facility] [place] [facility] Nov 28, 2023 08:00 AM AMBULATORY - MEDICINE MA C [facility] [place] [facility] Lab Results: +/- 30 days of the encounter This section includes the Chemistry and Hematology Lab Results on record with MA for the patient. Radiology Reports and Pathology Reports are provided separately, in subsequent sections. Lab Results This section contains the Chemistry/Hematology Results that were resulted 30 days before or 30 daysafter the date of the Encounter. Date/Time Source Result Type Result - Unit Interpretation Reference Range Comment May 23, 2023 02:11 PM [place] [facility] [place] [facility] THYROID T4 FREE(FT4) Specimen Type: SERUM No comment entered. Ordering Provider: Alex HUNTER Report Released Date/Time: May 11, 2023 02:45 PM Reporting Lab: [facility] [address] [facility] [address] Performing [facility]: [facility] [address] [facility] [address] THYROID T4 FREE(FT4) 1.03 ng/dL 0.6-1.6 May 23, 2023 02:11 PM [facility] [place] [facility] THYROID TOTAL T3 Specimen Type: SERUM No comment entered. Ordering Provider: Alex HUNTER Report Released Date/Time: May 11, 2023 02:45 PM Reporting Lab: [facility] [place] [address] [address] Performing Lab: [place] [facility] [place] [facility] [address] [facility] [address] THYROID TOTAL T3 75.21 ng/dL 35-193 May 23, 2023 02:11 PM [facility] TSH Specimen Type: SERUM No comment entered. Ordering Provider: Alex HUNTER Report Released Date/Time: May 11, 2023 02:45 PM Reporting Lab: [facility] [place] [address] [address] Performing Lab: [facility] [address] [address] TSH 4.54 u[IU]/mL 0.35-5.00 May 23, 2023 02:11 PM [facility] PT & INR (PROTIME) Specimen Type: PLASMA No comment entered. Ordering Provider: Alex HUNTER Report Released Date/Time: May 11, 2023 02:45 PM Reporting Lab: [facility] [place] [address] [address] Performing Lab: [facility] [address] [address] INR 1.0 PROTIME 11.8 s 10.0-13.1 May 23, 2023 02:11 PM [facility] CBC AND DIFF (AUTO) Specimen Type: BLOOD No comment entered. Ordering Provider: Alex HUNTER Report Released Date/Time: May 11, 2023 02:45 PM Reporting Lab: [facility] [address] [facility] [address] Performing Lab: [facility] [address] [facility] [address] WBC 6.36 10*3/uL 4.50-11.00 RBC 4.94 10*6/uL 4.23-5.66 HGB 14.7 g/dL 12.8-17 HCT 42.9 39.2-50.4 MCV 86.8 fL 82-99 MCHC 34.3 g/dL 30.8-35.1 PLT 226 10*3/uL 140-360 RDW-CV 13.2 12.0-16.0 Dodge, Abs 0.47 10*3/uL 0.30-1.10 MCH 29.8 pg 26.2-32.6 Neut % 69.4 43.7-75.8 Lymph % 21.5 14.0-42.3 Dodge % 7.4 5.1-13.7 Eos % 0.6 0.4-6.8 [...] and tobacco- related health factors from the [place] facility where the Encounter took place. Current Smoking Status This section includes the most current smoking, or tobacco-related health factor, from the [place] facility where the Encounter took place. Date/Time Current Smoking Status Comment Facil ity Dec 14, 2022 12:15 PM VA-TOBACCO NEVER USED [facility] Tobacco Use History This section includes a history of the smoking, or tobacco-related health factors, that were collected on or before the date of the Encounter. The data comes from the [place] facility where the Encounter took place. Date/Time Smoking Status/Tobacco Use Comment F acility Jan 10, 2019 10:51 AM MA-TOBACCO NEVER USED [place] [facility] [facility] Advance Directives: All historical and current Section Date Range: From patient's date of to the date document was created. This section includes ALL of a patient's completed or amended VA Advance and Rescinded Directives. The entries below indicate that a directive exists for the patient, but an actual copy is not included with this document. The data comes from all [place] facilities. Date Advance Directives Provider Source Aug 14, 2020 ADVANCE DIRECTIVE BENITEZCRISTOPHER Radiology Reports: +/- 30 days of the [...] the Encounter. The data comes from all [place] treatment facilities. Date/Time Radiology Report Provider Source May 23, 2023 01:54 PM ULTRASOUND THYROID: DILIA MENDOZA [id number] -1935 M Exm Date: MAY 23, 2023@13:54 Req Phys: RAMONA HUNTER Loc: CWM/NO/HBPC/PACT 2/SNP (Req'g Img Loc: ULTRASOUND Service: Unknown (Case [id number] COMPLETE) ULTRASOUND THYROID (US Detailed) CPT:50208 Reason for Study: evalute soft mobile nodules to left thyroid area Clinical History: patient will be in [place] 05/22 so this day is preferred Report Status: Verified Date Reported: MAY 23, 2023 Date Verified: MAY 23, 2023 Aerospace Physiological Technician E-Sig:/ES/MORENA RUIZ JR Report: Study: Thyroid ultrasound. [...] (TI-RADS): White Paper of the TI-RADS Committee. Merle et al., Journal of the [employer] 2017;14:587-595. Primary Diagnostic Code: No immediate attention required Primary Interpreting Staff: MORENA RUIZ JR, Radiologist (Aerospace Physiological Technician) /MORENA CAMPBELL JR [place] [facility] [place] [facility] May 17, 2023 01:14 PM NECK SOFT TISSUE: DILIA MENDOZA [id number] -1935 M Exm Date: MAY 17, 2023@13:14 Req Phys: RAMONA HUNTER Loc: CWM/NO/HBPC/PACT 2/SRN (Req'g Img Loc: [facility] 1 Service: Unknown (Case [id number] COMPLETE) NECK SOFT TISSUE (RAD Detailed) CPT:55510 Reason for Study: evaluate soft mobile nodules to left thyroid area Clinical History: Please also send to lab Report Status: Verified Date Reported: MAY 17, 2023 Date Verified: MAY 17, 2023 Aerospace Physiological Technician E-Sig:/ES/MORENA RUIZ JR Report: Study: AP and [...] Primary Interpreting Staff: MORENA RUIZ JR, Radiologist (Aerospace Physiological Technician) /MORENA CAMPBELL JR [facility] Encounter Notes: All associated encounter notes This section contains the clinical notes associated to the Encounter. 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 She states that his financials are being run. In the mean time she was wondering if he was eligible for rehab through the [place]. She was told he was not eligible. She then asked about acute rehab. She was informed that if he could tolerate the three hours of day of rehab we could submit for review. She states she will wait to hear back from financials and see if he has any other insurance. R: As above. /lalo/ ERICKA DEUTSCH Registered Nurse Signed: 06/06/2023 12:19 06/13/2023 ADDENDUM STATUS: COMPLETED Per [facility] notes, the Stebbins was discharged to [facility] using own private insurance on 06/06/23. /lalo/ Marjorie MARIE,RN,[facility]ER/TRAVELING COORDINATOR Signed: 06/13/2023 17:10 ERICKA DEUTSCH [facility]
--- OUTSIDE RECORDS SUMMARY | 2024-03-07 06:44 | XMS_ITS | Encounter Summary ---
Author Name [facility] [place] [facility] [place] Organization [facility] [place] Address [address] [place] [address] Care Team Providers Care Narcotics And Vice Detective Name Role Phone SARAY GARCIA Primary Care [...] PART B Feb 27, 2017 PART B [id number] REJI,GUSTAVO NRY PATIENT MEDICARE (WNR) MEDICARE (M) PART B Feb 27, 2017 PART B [id number] GUSTAVO MENDOZA NRY PATIENT MEDICARE (WNR) MEDICARE () PART A Feb 27, 2001 PART A [id number] REJI,GUSTAVO NRY PATIENT MEDICARE (WNR) MEDICARE (M) PART A Feb 27, 2001 PART A [id number] GUSTAVO MENDOZA PATIENT Selected Encounter This section includes the information on record at [place] for the Encounter. Date/Time Encounter Type Encounter Description Reason Provider Source May 29, 2023 02:25 PM PRO PHONE CALL 11-20 MIN TELEPHONE [facility] ICD-10-CM I48.91 Unspecified atrial fibrillation RÍOSArmandoBOBO Z,JODI Yg Encounter Template Text not used by [place] Assessments - Encounter Diagnoses This section includes the primary and secondary diagnoses documented for the Encounter. Date/Time Primary/Secondary Diagnosis Diagnosis Name Provider Source May 29, 2023 02:25 PM PRIMARY Unspecified atrial fibrillation DAVID AugustineJODI [facility] [place] [facility] Plan of Treatment: Future Appointments (+ 6 months) and Future Tests (+/- 45 days) The Plan of Treatment section includes future care activities for the patient from all [place] treatmentfacilities. This section includes future appointments and future orders which are active, pending or scheduled. Future Appointments This section includes appointments that were scheduled to occur 6 months from the date of the Encounter, up to a maximum of 20 appointments. The data comes from all [place] treatment facilities. Appointment Date/Time Appointment Type Appointme nt Facility Name July 11, 2023 01:45 PM AMBULATORY - MEDICINE [facility] [place] [facility] Oct 04, 2023 02:00 PM AMBULATORY - REHAB MEDICIN E [place] [facility] [place] [facility] Oct 04, 2023 03:00 PM AMBULATORY - MEDICINE [facility] [place] [facility] Oct 04, 2023 03:30 PM AMBULATORY - MEDICINE [facility] [place] [place] [facility] Oct 04, 2023 04:15 PM AMBULATORY - MEDICINE [facility] [place] [facility] Nov 28, 2023 08:00 AM AMBULATORY - MEDICINE [facility] [place] [facility] Lab Results: +/- 30 days of the encounter This section includes the Chemistry and Hematology Lab Results on record with [place] for the patient. Radiology Reports and Pathology Reports are provided separately, in subsequent sections. Lab Results This section contains the Chemistry/Hematology Results that were resulted 30 days before or 30 daysafter the date of the Encounter. Date/Time Source Result Type Result - Unit Interpretation Reference Range Comment May 23, 2023 02:11 PM [place] [facility] [place] [facility] THYROID T4 FREE(FT4) Specimen Type: SERUM No comment entered. Ordering Provider: Alex GARCIA Report Released Date/Time: May 11, 2023 02:45 PM Reporting Lab: [place] [facility] [place] [facility] [address] [facility] [address] Performing Lab: [place] [facility] [place] [facility] [address] [facility] [address] THYROID T4 FREE(FT4) 1.03 ng/dL 0.6-1.6 May 23, 2023 02:11 PM [place] [facility] [place] [facility] THYROID TOTAL T3 Specimen Type: SERUM No comment entered. Ordering Provider: Alex GARCIA Report Released Date/Time: May 11, 2023 02:45 PM Reporting Lab: [facility] [place] [facility] [address] [facility] [address] Performing Lab: [facility] [place] [facility] [address] [facility] [address] THYROID TOTAL T3 75.21 ng/dL 35-193 May 23, 2023 02:11 PM [facility] TSH Specimen Type: SERUM No comment entered. Ordering Provider: Alex GARCIA Report Released Date/Time: May 11, 2023 02:45 PM Reporting Lab: [place] [facility] [place] [facility] [address] [facility] [address] Performing Lab: [place] [facility] [place] [facility] [address] [facility] [address] TSH 4.54 u[IU]/mL 0.35-5.00 May 23, 2023 02:11 PM [place] [facility] [place] [facility] PT & INR (PROTIME) Specimen Type: PLASMA No comment entered. Ordering Provider: Alex GARCIA Report Released Date/Time: May 11, 2023 02:45 PM Reporting Lab: [facility] [place] [facility] [address] [facility] [address] Performing Lab: [place] [facility] [place] [facility] [address] [facility] [address] INR 1.0 PROTIME 11.8 s 10.0-13.1 May 23, 2023 02:11 PM [facility] CBC AND DIFF (AUTO) Specimen Type: BLOOD No comment entered. Ordering Provider: Alex GARCIA Report Released Date/Time: May 11, 2023 02:45 PM Reporting Lab: [facility] [address] [facility] [address] Performing Lab: [facility] [address] [facility] [address] WBC 6.36 10*3/uL 4.50-11.00 RBC 4.94 10*6/uL 4.23-5.66 HGB 14.7 g/dL 12.8-17 HCT 42.9 39.2-50.4 MCV 86.8 fL 82-99 MCHC 34.3 g/dL 30.8-35.1 PLT 226 10*3/uL 140-360 RDW-CV 13.2 12.0-16.0 Appling, Abs 0.47 10*3/uL 0.30-1.10 MCH 29.8 pg 26.2-32.6 Neut % 69.4 43.7-75.8 Lymph % 21.5 14.0-42.3 Appling % 7.4 5.1-13.7 Eos % 0.6 0.4-6.8 [...] and tobacco- related health factors from the [place] facility where the Encounter took place. Current Smoking Status This section includes the most current smoking, or tobacco-related health factor, from the [place] facility where the Encounter took place. Date/Time Current Smoking Status Comment Frederick varner Dec 14, 2022 12:15 PM VA-TOBACCO NEVER USED [facility] Tobacco Use History This section includes a history of the smoking, or tobacco-related health factors, that were collected on or before the date of the Encounter. The data comes from the [place] facility where the Encounter took place. Date/Time Smoking Status/Tobacco Use Comment Dane acility Jan 10, 2019 10:51 AM VA-TOBACCO NEVER USED [facility] Advance Directives: All historical and current Section Date Range: From patient's date of to the date document was created. This section includes ALL of a patient's completed or amended [place] Advance and Rescinded Directives. The entries below indicate that a directive exists for the patient, but an actual copy is not included with this document. The data comes from all [place] facilities. Date Advance Directives Provider Source Aug [...] the Encounter. The data comes from all [place] treatment facilities. Date/Time Radiology Report Provider Source May 23, 2023 01:54 PM ULTRASOUND THYROID: DILIA MENDOZA [id number] -1935 M Exm Date: MAY 23, 2023@13:54 Req Phys: SARAY GARCIA Loc: CWM/NO/HBPC/PACT 2/SNP (Req'g Img Loc: ULTRASOUND Service: Unknown (Case [id number] COMPLETE) ULTRASOUND THYROID (US Detailed) CPT:05167 Reason for Study: evalute soft mobile nodules to left thyroid area Clinical History: patient will be in [place] 05/22 so this day is preferred Report Status: Verified Date Reported: MAY 23, 2023 Date Verified: MAY 23, 2023 Assistant Manager Trainee E-Sig:/ES/MORENA RUIZ JR Report: Study: Thyroid ultrasound. [...] Committee. Mariselsler et al., Journal of the [employer] 2017;14:587-595. Primary Diagnostic Code: No immediate attention required Primary Interpreting Staff: MORENA RUIZ JR, Radiologist (Assistant Manager Trainee) /MORENA CAMPBELL JR [place] [facility] [facility] May 17, 2023 01:14 PM NECK SOFT TISSUE: DILIA MENDOZA [id number] -1935 M Ex Date: MAY 17, 2023@13:14 Req Phys: SARAY GARCIA Pat Loc: CWM/NO/HBPC/PACT 2/SRN (Req'g Img Loc: [facility] 1 Service: Unknown (Case [id number] COMPLETE) NECK SOFT TISSUE (RAD Detailed) CPT:17051 Reason for Study: evaluate soft mobile nodules to left thyroid area Clinical History: Please also send to lab Report Status: Verified Date Reported: MAY 17, 2023 Date Verified: MAY 17, 2023 Assistant Manager Trainee E-Sig:/ES/MORENA RUIZ JR Report: Study: AP and [...] Primary Interpreting Staff: MORENA RUIZ JR, Radiologist (Assistant Manager Trainee) /MORENA CAMPBELL JR [facility] Encounter Notes: All associated encounter notes This section contains the clinical notes associated to the Encounter. Date/Time Encounter Note(s) Provider Source May 30, 2023 10:51 AM HB NOTE: LOCAL TITLE: [facility] NOTIFICATION STANDARD TITLE: HB NOTE DATE OF NOTE: MAY 30, 2023@10:51 ENTRY DATE: MAY 30, 2023@10:52:18 AUTHOR: RAÚL FONG COSIGNER: URGENCY: STATUS: COMPLETED [facility] NOTIFICATION Has ADDENDA lens molding equipment operator: Jodi Fong RN Provider: Saray Garcia NP Reason for Admission: weakness, hiccups, new diagnosis A [facility] Facility Admitted to: [facility] Date of Admission: Apr Date of Discharge: Inpatient Covid-19 Testing Performed: Unknown Current Status of Patient: [facility] providing care in the home: No Request for records made to Right : Comments: /lalo/ FLORI MIDDLETON plastics patternmaker Signed: 05/30/2023 10:56 Receipt Acknowledged By: 05/30/2023 12:09 /lalo/ CHANDRAKANT CHUNG [facility] for [employer] 06/05/2023 ADDENDUM STATUS: COMPLETED transferred to [facility] on 06/01 /FLORI Fallon plastics patternmaker Signed: 06/05/2023 12:37 RAÚL FONG [facility] May 29, 2023 02:25 PM [facility] NOTE: LOCAL TITLE: HB TELEPHONE NOTE STANDARD TITLE: HB NOTE DATE OF NOTE: MAY 29, 2023@14:25 ENTRY DATE: MAY 30, 2023@10:44:11 AUTHOR: RAÚL FONG EXP COSIGNER: URGENCY: STATUS: COMPLETED Duration of call: 16 min Called received from girlfriend Lakshmi to report was taken by ambulance to [facility] r/t weakness and increase confusion. is currently inpatient with new diagnosis of A fib. Vet is under observation and plan to evaluate for short term rehab as is reported to be weak and Lakshmi can't manage at home. Caregiver reports had some issues with incontinence and requested to have orders for briefs, wipes and gloves added. /es/ JODI FONG RN [facility] plastics patternmaker Signed: 05/30/2023 10:51 RAÚL FONG [facility]
--- OUTSIDE RECORDS SUMMARY | 2024-03-07 06:44 | XMS_ITS | Encounter Summary ---
Author Name [facility] Organization [facility] [place] Address [address] [place] [id number] Care Team Providers Care Cullet Trucker Name Role Phone SARAY GARCIA Primary Care Provider Unav ailable LADI, FABI Unavailable Unavailable DON DIAZ Unavailable Unavailable CHAPUT, JSOHUA Unavailable Unavailable RAIVEL, KATIANA Unavailable Unavailable FEILEN, [...] PART B Feb 27, 2017 PART B [id number] ARONGUS,GUSTAVO NRY PATIENT MEDICARE (WNR) MEDICARE (M) PART B Feb 27, 2017 PART B [id number] WILGUS,GUSTAVO NRY PATIENT MEDICARE (WNR) MEDICARE (M) PART A Feb 27, 2001 PART A [id number] WILGUS,HE NRY PATIENT MEDICARE (WNR) MEDICARE (M) PART A Feb 27, 2001 PART A [id number] WILGUS,HE NRY PATIENT Selected Encounter This section includes the information on record at [place] for the Encounter. 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 Date/Time Primary/Secondary Diagnosis Diagnosis Name Provider Source May 25, 2023 12:07 PM PRIMARY Problem related to unspecified psychosocial circumstances LADIYeni DYANA [facility] [place] [facility] May 25, 2023 12:07 PM SECONDARY Contact with and exposure to other hazardous substances [facility] [place] [facility] Plan of Treatment: Future Appointments (+ 6 months) and Future Tests (+/- 45 days) The Plan of Treatment section includes future care activities for the patient from all [place] treatmentfacilities. This section includes future appointments and future orders which are active, pending or scheduled. Future Appointments This section includes appointments that were scheduled to occur 6 months from the date of the Encounter, up to a maximum of 20 appointments. The data comes from all [place] treatment facilities. Appointment Date/Time Appointment Type Appointme nt Facility Name July 11, 2023 01:45 PM AMBULATORY - MEDICINE DE [facility] [place] [facility] Oct 04, 2023 02:00 PM AMBULATORY - REHAB MEDICIN E [facility] [place] [facility] Oct 04, 2023 03:00 PM AMBULATORY - MEDICINE DE C [facility] [place] [facility] Oct 04, 2023 03:30 PM AMBULATORY - MEDICINE DE C [facility] [place] [facility] Oct 04, 2023 04:15 PM AMBULATORY - MEDICINE [facility] [place] [facility] Lab Results: +/- 30 days of the encounter This section includes the Chemistry and Hematology Lab Results on record with [place] for the patient. Radiology Reports and Pathology Reports are provided separately, in subsequent sections. Lab Results This section contains the Chemistry/Hematology Results that were resulted 30 days before or 30 daysafter the date of the Encounter. Date/Time Source Result Type Result - Unit Interpretation Reference Range Comment May 23, 2023 02:11 PM [facility] [place] [facility] THYROID T4 FREE(FT4) Specimen Type: SERUM No comment entered. Ordering Provider: Alex GARCIA Report Released Date/Time: May 11, 2023 02:45 PM Reporting Lab: [facility] [place] [facility] [address] [facility] [address] Performing Lab: [facility] [place] [facility] [address] [facility] [address] THYROID T4 FREE(FT4) 1.03 ng/dL 0.6-1.6 May 23, 2023 02:11 PM [facility] [place] [facility] THYROID TOTAL T3 Specimen Type: SERUM No comment entered. Ordering Provider: Alex GARCIA Report Released Date/Time: May 11, 2023 02:45 PM Reporting Lab: [facility] [place] [facility] [address] [facility] [address] Performing Lab: [facility] [place] [facility] [address] [facility] [address] THYROID TOTAL T3 75.21 ng/dL 35-193 May 23, 2023 02:11 PM [facility] [place] [facility] TSH Specimen Type: SERUM No comment entered. Ordering Provider: Alex GARCIA Report Released Date/Time: May 11, 2023 02:45 PM Reporting Lab: [facility] [place] [facility] [address] [facility] [address] Performing Lab: [place] [facility] [place] [facility] [address] [facility] [address] TSH 4.54 u[IU]/mL 0.35-5.00 May 23, 2023 02:11 PM [facility] [place] [facility] PT & INR (PROTIME) Specimen Type: PLASMA No comment entered. Ordering Provider: Alex GARCIA Report Released Date/Time: May 11, 2023 02:45 PM Reporting Lab: [facility] [place] [facility] [address] [facility] [address] Performing Lab: [facility] [place] [address] [address] INR 1.0 PROTIME 11.8 s 10.0-13.1 May 23, 2023 02:[address] [facility] CBC AND DIFF (AUTO) Specimen Type: BLOOD No comment entered. Ordering Provider: Alex GARCIA Report Released Date/Time: May 11, 2023 02:45 PM Reporting Lab: [facility] [address] [facility] [address] Performing Lab: [facility] [address] [facility] [address] WBC 6.36 10*3/uL 4.50-11.00 RBC 4.94 10*6/uL 4.23-5.66 HGB 14.7 g/dL 12.8-17 HCT 42.9 39.2-50.4 MCV 86.8 fL 82-99 MCHC 34.3 g/dL 30.8-35.1 PLT 226 10*3/uL 140-360 RDW-CV 13.2 12.0-16.0 [place], Abs 0.47 10*3/uL 0.30-1.10 MCH 29.8 pg 26.2-32.6 Neut % 69.4 43.7-75.8 Lymph % 21.5 14.0-42.3 [place] % 7.4 5.1-13.7 Eos % 0.6 0.4-6.8 [...] and tobacco- related health factors from the [place] facility where the Encounter took place. Current Smoking Status This section includes the most current smoking, or tobacco-related health factor, from the DE facility where the Encounter took place. Date/Time Current Smoking Status Comment Frederick ity Dec 14, 2022 12:15 PM VA-TOBACCO NEVER USED [facility] Tobacco Use History This section includes a history of the smoking, or tobacco-related health factors, that were collected on or before the date of the Encounter. The data comes from the DE facility where the Encounter took place. Date/Time Smoking Status/Tobacco Use Comment F acility Jan 10, 2019 10:51 AM VA-TOBACCO NEVER USED [facility] Advance Directives: All historical and current Section Date Range: From patient's date of to the date document was created. This section includes ALL of a patient's completed or amended [place] Advance and Rescinded Directives. The entries below indicate that a directive exists for the patient, but an actual copy is not included with this document. The data comes from all [place] facilities. Date Advance Directives Provider Source Aug [...] the Encounter. The data comes from all [place] treatment facilities. Date/Time Radiology Report Provider Source May 23, 2023 01:54 PM ULTRASOUND THYROID: DILIA CLINE [id number] M Exm Date: MAY 23, 2023@13:54 Req Phys: SARAY GARCIA Loc: CWM/NO/HBPC/PACT 2/SNP (Req'g Img Loc: ULTRASOUND Service: Unknown (Case [id number] COMPLETE) ULTRASOUND THYROID (US Detailed) CPT:12959 Reason for Study: evalute soft mobile nodules to left thyroid area Clinical History: patient will be in [place] 05/22 so this day is preferred Report Status: Verified Date Reported: MAY 23, 2023 Date Verified: MAY 23, 2023 Supervisor Airplane Flight Attendant E-Sig:/ES/MORENA RUIZ JR Report: Study: Thyroid ultrasound. [...] Committee. Mariselsler et al., Journal of the [place] [employer] 2017;14:587-595. Primary Diagnostic Code: No immediate attention required Primary Interpreting Staff: MORENA RUIZ JR, Radiologist (Supervisor Airplane Flight Attendant) /MORENA CAMPBELL JR [facility] [place] [facility] May 17, 2023 01:14 PM NECK SOFT TISSUE: DILIA CLINE [id number] M Ex Date: MAY 17, 2023@13:14 Req Phys: SARAY GARCIA Pat Loc: CWM/NO/HBPC/PACT 2/SRN (Req'g Img Loc: [facility] 1 Service: Unknown (Case [id number] COMPLETE) NECK SOFT TISSUE (RAD Detailed) CPT:91361 Reason for Study: evaluate soft mobile nodules to left thyroid area Clinical History: Please also send to lab Report Status: Verified Date Reported: MAY 17, 2023 Date Verified: MAY 17, 2023 Supervisor Airplane Flight Attendant E-Sig:/ES/MORENA RUIZ JR Report: Study: AP and [...] Primary Interpreting Staff: MORENA RUIZ JR, Radiologist (Supervisor Airplane Flight Attendant) /MORENA CAMPBELL JR DE [facility] Encounter Notes: All associated encounter notes This section contains the clinical notes associated to the Encounter. Date/Time Encounter Note(s) Provider Source May 25, 2023 12:08 PM ADDENDUM: LOCAL TITLE: Addendum STANDARD TITLE: ADDENDUM DATE OF NOTE: MAY 25, 2023@12:08:07 ENTRY DATE: MAY 25, 2023@12:08:08 AUTHOR: FABI BLEDSOE EXP COSIGNER: URGENCY: STATUS: COMPLETED had a positive toxic exposure screening. Tennis Director to provide caregiver with contacts to discuss further. He reports the spraying of chemicals [place] in [facility]. Does not need medical follow up. /lalo/ FABI BLEDSOE [facility] Tennis Director Signed: 05/25/2023 12:09 Receipt Acknowledged By: 05/25/2023 14:39 /lalo/ SARAY GARCIA RN,MSN,[employer] CONSULTANT-C [facility] NURSE PRACTITIONER --- Original Document --- 05/24/23 [facility] SOCIAL WORK ASSESSMENT: WHAT MATTERS What Matters was addressed at this visit. Comment: To get out more and do things with his significant other--weather is getting warmer. MENTATION Depression was addressed at this visit. Comment: Negative depression screen. MENTATION Dementia was addressed at this visit. Comment: [facility] Exam score of 21 indicating dementia. MENTATION Delirium was addressed at this visit. Comment: No s/s of delirium observed. SOCIAL WORK ASSESSMENT [place] was seen for: [ ] Initial Review [X] Annual Review Admission Date: 05/18/22 [place] identified by: [ ] Full Name [X] Address [ ] [ ] SSN [X] Facial Recognition Patient Demographics: Address: [address] [place] [address] County: [place] Marital Status: Age: 88 Cheondoism: FAITH Sex: MALE Occupation: RETIRED Period of Service: Branch of Service: Combat: NO POW: NO Eligibility: NSC Status: VERIFIED Means Test: NO LONGER REQUIRED NOK: LAKSHMI DHALIWAL Relation: GIRLFRIEND [address] [place], [place] Service Connected Disabilities with % Eligibility: NSC VERIFIED Other persons present: Significant Other Length of visit: 60 minutes CURRENT LIVING ARRANGEMENTS [ ] Own Home [ ] Apartment/rented house [ ] Residential Home [ ] Alf [ ] Assisted Living [ ] Home of Significant Other [ ] Home of other family members [ ] Home of friends [X] Other: Home of significant other's mother Patient lives with: [ ] Alone [ ] With Spouse [ ] With Adult Child [X] With Significant Other [ ] With a Friend [X] Other: Significant other's mother Home environment: [ ] Cluttered [X] Clean/tidy [ ] Lacks appropriate heating/plumbing/cooking/fo od storage [ ] Unsanitary [ ] Strong Odor [ ] Fall risks [ ] Steps to enter/or inside home [ ] Other: PATIENT'S PRESENTATION/MENTAL STATUS ASSESSMENT: 1. ORIENTATION: Oriented to: [X] Person [X] Place [ ] Time [ ] Situation [X] Alert [ ] Lethargic [ ] Confused [X] Memory Deficits [ ] Other: 2. BEHAVIORS: [X] Socially appropriate [ ] Aggressive [ ] Yelling [ ] Withdrawn [ ] Delusional [ ] Threatening [ ] Wandering [ ]Other: 3. AFFECT: [X] Full range affect [ ] Euphoric [ ] Flat [ ] Calm [ ] Tense [ ] Anxious [ ] Labile [ ] Hostile [ ] Angry [ ] Congruent with mood [ ] Incongruent with mood 4. MOOD: [X] Good [ ] Fair [ ] Irritable [ ] Tearful/crying [ ] Hopeless [ ] Guilty 5. HYGIENE: [X] Good [ ] Well-groomed [ ] Unkempt [ ] Body odor 6. DRESSED: [X]Casually [ ] Professional casual [ ] Neat [ ] Disheveled 7. EYE CONTACT is: [X] Good [ ] Fair [ ] Intermittent [ ] Direct [ ]Avoidant SUPPORT SYSTEMS Informal supports: 's partner is his primary caregiver. She assists with ADLs, IADLs, medication management and general oversight. She's also able to provide transportation. The two moved into her mother's trailer home several years ago, so she could take care of both her mother and partner when he began showing signs of dementia. The trailer is now in her name. Partner's name is on all his bank accounts and she manages the finances. He receives 19 hours of WEATHERIZATION AND HOUSING INSPECTOR from the [place] and they have good rapport with current WEATHERIZATION AND HOUSING INSPECTOR. Formal supports: [X]Homemaker/Home Health Aide [X]Inpatient/in-home respite [ ]Adult Day Health Care [ ]VNA/Skilled Home Health Care [ ]Elder Services [ ]Meals on Wheels [ ]Transportation [ ]Personal Emergency Response System [ ]Home Oxygen [ ]Other: OXYGEN SAFETY [X]N/A [ ]No unsafe behavior observed [ ]Unsafe behavior observed ([facility] Home Oxygen Safety Checklist must be completed if unsafe behavior observed) SUBSTANCE USE Alcohol use: None Nicotine use: None Other: Is interested in substance abuse/smoking cessation treatment? [ ]Yes [X]No PSYCHIATRIC HISTORY: No history of mental health issues or treatment reported. CRIMINAL HISTORY: Do you have a legal history(arrests,incarcerati ons,probation,parole,divorc e,child custody issues)? No I/ADL FUNCTIONAL ASSESSMENT Davis Index of [place] in Activities of Daily Living: Bathing: [ ] Independent (1) * Bathes self completely or needs help in bathing only a single part of the body such as the back, genital area or disabled extremity. [X] Dependent (0) * Needs help with bathing more than one part of the body, getting in or out of the tub or shower. Requires total bathing. Dressing: [ ] Independent (1) * Gets clothes from closets and drawers and puts on clothes and outer garments complete with fasteners. May have help tying shoes. [X] Dependent (0) * Needs help with dressing self or needs to be completely dressed. Toileting: [X] Independent (1) * Goes to toilet, gets on and off, arranges clothes, cleans genital area without help. [ ] Dependent (0) * Needs help transferring to the toilet, cleaning self or uses bedpan or commode. Transferring: [X] Independent (1) * Independent (1) - Moves in and out of bed or chair unassisted. Mechanical transferring aides are acceptable. [ ] Dependent (0) * Needs help in moving from bed to chair or requires a complete transfer. Continence: [ ] Independent (1) * Exercises complete self-control over urination and defecation. [X] Dependent (0) * Is partially or totally incontinent of bowel or bladder. Feeding: [X] Independent (1) * Gets food from plate into mouth without help. Preparation of food may be done by another person. [ ] Dependent (0) * Needs partial or total help with feeding or requires parenteral feeding. Total Points = 3 - Score Explanation: 6 = High (patient independent), 0 = Low (patient very dependent) RADHA-LACIE INSTRUMENTAL ACTIVITIES OF DAILY LIVING: Telephone use: [ ](1) Operates a telephone via own initiative; looks up and dials numbers, etc. [ ](1) Dials a few well known numbers [ ](1) Answers phone but does not dial [X](0) Does not use telephone at all Shopping: [ ](1) Takes care of all shopping needs independently [ ](0) Shops independently for small purchases [ ](0) Needs to be accompanied on any shopping trip [X](0) Completely unable to shop Meal Preparation: [ ](1) Plans, prepares, and serves adequate meals independently [ ](0) Prepares adequate meals if supplied with ingredients [ ](0) Heats, serves, and prepares meals but does not maintain adequate diet [X](0) Needs to have all meals prepared and served Housekeeping: [ ](1) Maintains house alone or with occasional assistance [ ](1) Performs light daily tasks such as dishwashing, bed making [ ](1) Performs light daily tasks but cannot maintain acceptable level of cleanliness. [ ](1) Needs help with all home maintenance tasks [X](0) Does not participate in any housekeeping tasks Laundry: [ ](1) Does personal laundry completely [ ](1) Launders small items; rinses stockings, etc. [X](0) All laundry must be done by others Transportation: [ ](1) Travels independently on public transportation or drives own car [ ](1) Arranges own travel via taxi, but not otherwise use public transportation program [X](1) Travels only when accompanied by others [ ](0) Does not travel at all Medication mgmt: [ ](1) Is responsible for taking correct medication in correct dose, at correct time [ ](0) Takes responsibility if medication is prepared in advance in separate dosages [X](0) Is not capable of dispensing medications Financial mgmt: [ ](1) Manages financial matters independently (budgets, writes own checks, pays rent) [ ](1) Manages day to day purchases but needs help with banking, major purchases, etc [X](0) Incapable of handling money Do you have [place] contracted Home Health Aide Services?Yes,(explain) Agency Providing WEATHERIZATION AND HOUSING INSPECTOR Services: Leilani Chapin Are you satisfied with your personal care provided by the agency? YES Do you feel safe with the personal care services provided by the agency? YES FINANCIAL STATUS Income sources: [ ] VA pension [ ] Residential [ ] [place] compensation [ ] [place] Annuity [ ] Aid & Attendance [ ] [address] [X] SS Residential [ ] SS Disability [ ] Private pension [ ] SSI [ ] Other: Income amount: Undisclosed Financial hardship reported: [ ] Yes [X] No Who Manages Finances: Significant other Copay status: Outpatient Visits:[X] Exempt [ ] Non-Exempt Medications: [X] Exempt [ ] Non-Exempt Insurance: [ ] Medicare A only [X] Medicare A and B [ ] Medicare HMO: [ ] Medicaid: [ ] Supplemental insurance to Medicare: [ ] Other Private insurance: ADVANCE DIRECTIVE: Does the [place] have: VA Advance directives on file? [X] Yes [ ] No State Authorized Health Care Proxy Document on file? [ ] Yes [X] No If yes, was document reviewed with ? [X] Yes [ ] No [X] Current [ ] Needs to be updated HCP:Lakshmi Dhaliwal If no , were advanced directives discussed with [place]? [ ] Yes [ ] No Legal guardian? [ ] Yes [X] No Power of Appliance Technician? [ ] Yes [X] No Conservator/Fiduciary? [ ] Yes [X] No Is there evidence of abuse or neglect? 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 [ ] Yes [X] No If yes, describe: COGNITIVE ASSESSMENT Is Vet a poor historian ? [X] Yes [ ] No Defers to a caregiver/family member? [X] Yes [ ] No Expresses concern over memory? [ ] Yes [X] No Concerns identified: Presence of difficult behaviors? [ ] Yes [X] No If yes, please describe: Does Vet have a diagnosis of cognitive impairment? [X] Yes [ ] No Dx: White Brain Matter Hx of neuropsych testing? If yes, dates/location: Cognitive Screening: [X] Is Indicated [ ] Is Not Indicated [ ] Unable To Complete [ ] Declined by Vet Further cognitive evaluation requested by [place]: [ ] Yes [X] No The Blessed Orientation Memory Concentration (BOMC) Test: SCORE 4 1.) What year is it now? 3 2.) What month is it now? 0 3.) About what time is it? 0 4.) Count backwards 20 to 1. 4 5.) Say the months in reverse order (start with January) 10 6.) Repeat the memory phrase. (1)Tyler (1)Oscar (1)42 (1)Yovanny (1)Beaver Score & Interpretation: 21 -- Dementia CAREGIVER STATUS: Does the have a caregiver who provides substantive assistance on an ongoing basis for the in the [place]'s place of residence? (not including paid professional caregivers) YES = [place] Interview: Caregiver Name: Lakshmi Dhaliwal 1. Do you feel that because of the time you spend with your relative, you don't have enough time for yourself? [ ] 0 = Never [ ] 1 = Rarely [X] 2 = Sometimes [ ] 3 = Quite frequently [ ] 4 = Nearly always 2. Do you feel stressed between caring for your relative and trying to meet other responsibilities such as work or family? [ ] 0 = Never [ ] 1 = Rarely [X] 2 = Sometimes [ ] 3 = Quite frequently [ ] 4 = Nearly always 3. Do you feel strained when you are around your relative? [ ] 0 = Never [ ] 1 = Rarely [X] 2 = Sometimes [ ] 3 = Quite frequently [ ] 4 = Nearly always 4. Do you feel unsure about what to do about your relative? [ ] 0 = Never [X] 1 = Rarely [ ] 2 = Sometimes [ ] 3 = Quite frequently [ ] 4 = Nearly always Total score = 7 * A score of 8 or higher reflects high burden and needs further follow-up. Needs identified by caregiver: Caregiver denies need for any additional support currently. SOCIAL WORK SUMMARY: /Caregiver has been provided with information regarding: VA AND COMMUNITY RESOURCES [ ] VA Home Health Aide Services [ ] Elder Care Services [ ] Inpatient/In-Home Respite [ ] Adult Day Health [ ] Hospice [ ] Transportation [ ] Guardian Alert/Personal Emergency Response System [X] Half-Way Care: [ ] Eligible for VA contracted group home. [X] Not eligible for VA contracted group home. Advised shelter care would fall to private pay or Medicaid. [X] State [facility] Home [ ] Housing: [ ] Assisted Living [ ] Independent Living [ ] Other: [ ] Meals on Wheels [ ] Medicaid/Medicare/Shine for private insurance options [X] VA Benefits/Compensation [ ] Caregiver support group [ ] Outpatient individual therapy [ ] Other: BILLIARD PLAYER PLANNING [X] Patient to stay at home with assistance. [ ] Patient willing to consider SNF. [ ] Declined to discuss shelter planning. ALTERNATIVE PLACEMENT/EMERGENCY PLAN [X] [place] Contract Custodial Respite [ ] In-home Respite [ ] Alternative family members providing care [ ] can remain home safely short-term. [ ] is independent and does not require a caregiver. [ ] /Caregiver declined. SW will continue education placement plans for urgent/emergent care on an annual basis. ASSESSMENT NARRATIVE: Mr. Cline is an 88 year old [place] who lives with his significant other and her mother in [place]. Home is accessible. 's partner is his primary caregiver. She assists with ADLs, IADLs, medication management and general oversight. She's also able to provide transportation. The two moved into her mother's trailer home several years ago so she could take care of both her mother and partner when he began showing signs of dementia. The trailer is now in her name. Partner's name is on all his bank accounts, and she manages the finances. He receives 19 hours of WEATHERIZATION AND HOUSING INSPECTOR from the [place] and they have good rapport with current WEATHERIZATION AND HOUSING INSPECTOR. 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 He scored a 21 on [facility] Exam indicating dementia. Sometimes he is more confused than others. She tries to get him out of the house and go for rides-- get something to eat etc., to increase his socialization/stimulation. WEATHERIZATION AND HOUSING INSPECTOR assists with puzzles and Bingo when time allows. Lakshmi is committed to continue caring for [place] at home while waiting on bed to open at the [facility] in [place]. She applied in January and was told it would be an 8 month- 1 year wait. She declined need for any additional caregiver support at this time. SOCIAL WORK PLAN OF CARE: --Provide significant other with contacts for questions regarding possible chemical exposure in [place]. --Provide psychosocial support as needed. --Next annual assessment to be conducted April 2024 unless otherwise indicated. Advance Directive Screen MH AD: Patient has an Advance Directive on file at this [facility]. No updates are needed currently. The patient received education about Advance Directives and written notification of his/her rights. Suicide Screen: C-SSRS Screening [place]-Suicide Severity Rating Scale (C-SSRS Screener) 1. Over the past month, have you wished you were or wished you could go to sleep and not wake up? No 2. Over the past month, have you had any actual thoughts of killing yourself? No 3. Over the past month, have you been thinking about how you might do this? Response not required due to responses to other questions. 4. Over the past month, have you had these thoughts and had some intention of acting on them? Response not required due to responses to other questions. 5. Over the past month, have you started to work out or worked out the details of how to kill yourself? Response not required due to responses to other questions. 6. If yes, at any time in the past month did you intend to carry out this plan? Response not required due to responses to other questions. 7. In your lifetime, have you ever done anything, started to do anything, or prepared to do anything to end your life (for example, collected pills, obtained a gun, gave away valuables, went to the roof but didn't jump)? No 8. If YES, was this within the past 3 months? Response not required due to responses to other questions. Toxic Exposure Screening: The [place]/caregiver was asked if they believe the [place] experienced any toxic exposure(s), such as Airborne Hazards and Open Burn Pit, [place] War related exposures, Agent [place], Radiation, contaminated water at [place] or other such exposures, while serving in the Armed Forces. [place]/caregiver believes the [place] was exposed to the following while serving in the Armed Forces: Other exposures: Comment: Reports there were chemicals being sprayed [place] during [place]. Uncertain of what it was. Woodmere/caregiver was made aware of educational resources and printed information was offered and provided if desired. Benefits/Claims Questions Wood[place]/caregiver was informed of local point of contact. Contact information for local resources: Benefits/Claim for Disability Compensation Questions:National VBA [place] Healthcare Enrollment: [facility] Eligibility direct dialed at [phone] Registry: Environmental Health Coordinator ext [phone] Toxic Exposure Screening Follow-Up reminder is needed. Name of person notified: Saray Garcia APRN Depression Screening: Perform PHQ-2 A PHQ-2 screen was performed. The score was 0 which is a negative screen for depression. Over the past two weeks, how often have you been bothered by the following problems? 1. Little interest or pleasure in doing things Not at all 2. Feeling down, depressed, or hopeless Not at all Alcohol Use Screen (AUDIT-C): Alcohol Screen: SCREEN FOR ALCOHOL (AUDIT-C) An alcohol screening test (AUDIT-C) was negative (score=0). 1. How often did you have a drink containing alcohol in the past year? Consider a drink to be a 12 ounce can or bottle of regular beer, 8 ounces of malt liquor, a 5 ounce glass of table wine, or a 1.5 ounce shot of liquor (like scotch, gin, or vodka). Never 2. How many drinks containing alcohol did you have on a typical day when you were drinking in the past year? Response not required due to responses to other questions. 3. How often did you have six or more drinks on one occasion in the past year? Response not required due to responses to other questions. RHS Screen: RHS Screen Session Format: Face to Face Environmental Check Screening was not completed at this time due to: Another adult present Homelessness/Food Insecurity Screen: The [place] reports the following: Within the past 12 months, you worried whether your food would run out before you got money to buy more. Never true Within the past 12 months, the food you bought just didn't last and you didn't have money to get more. Never true /es/ FABI BLEDSOE FISH SMOKER [facility] Tennis Director Signed: 05/25/2023 12:07 05/25/2023 ADDENDUM STATUS: UNSIGNED You may not VIEW this UNSIGNED Addendum. FABI BLEDSOE DE CNTRL WSTRN [place] [facility] May 24, 2023 01:00 PM [facility] NOTE: LOCAL TITLE: [facility] SOCIAL WORK ASSESSMENT STANDARD TITLE: [facility] NOTE DATE OF NOTE: MAY 24, 2023@13:00 ENTRY DATE: MAY 24, 2023@14:54:43 AUTHOR: FABI BLEDSOE EXP COSIGNER: URGENCY: STATUS: COMPLETED [facility] SOCIAL WORK ASSESSMENT Has ADDENDA WHAT MATTERS What Matters was addressed at this visit. Comment: To get out more and do things with his significant other--weather is getting warmer. MENTATION Depression was addressed at this visit. Comment: Negative depression screen. MENTATION Dementia was addressed at this visit. Comment: [facility] Exam score of 21 indicating dementia. MENTATION Delirium was addressed at this visit. Comment: No s/s of delirium observed. SOCIAL WORK ASSESSMENT was seen for: [ ] Initial Review [X] Annual Review Admission Date: 05/18/22 [place] identified by: [ ] Full Name [X] Address [ ] [ ] SSN [X] Facial Recognition Patient Demographics: Address: [address] [place] [address] County: [place] Marital Status: Age: 88 Cheondoism: FAITH Sex: MALE Occupation: RETIRED Period of Service: Branch of Service: Combat: NO POW: NO Eligibility: NSC Status: VERIFIED Means Test: NO LONGER REQUIRED NOK: LAKSHMI DHALIWAL Relation: GIRLFRIEND [address] [place], [place] Service Connected Disabilities with % Eligibility: NSC VERIFIED Other persons present: Significant Other Length of visit: 60 minutes CURRENT LIVING ARRANGEMENTS [ ] Own Home [ ] Apartment/rented house [ ] Residential Home [ ] Alf [ ] Assisted Living [ ] Home of Significant Other [ ] Home of other family members [ ] Home of friends [X] Other: Home of significant other's mother Patient lives with: [ ] Alone [ ] With Spouse [ ] With Adult Child [X] With Significant Other [ ] With a Friend [X] Other: Significant other's mother Home environment: [ ] Cluttered [X] Clean/tidy [ ] Lacks appropriate heating/plumbing/cooking/fo od storage [ ] Unsanitary [ ] Strong Odor [ ] Fall risks [ ] Steps to enter/or inside home [ ] Other: PATIENT'S PRESENTATION/MENTAL STATUS ASSESSMENT: 1. ORIENTATION: Oriented to: [X] Person [X] Place [ ] Time [ ] Situation [X] Alert [ ] Lethargic [ ] Confused [X] Memory Deficits [ ] Other: 2. BEHAVIORS: [X] Socially appropriate [ ] Aggressive [ ] Yelling [ ] Withdrawn [ ] Delusional [ ] Threatening [ ] Wandering [ ]Other: 3. AFFECT: [X] Full range affect [ ] Euphoric [ ] Flat [ ] Calm [ ] Tense [ ] Anxious [ ] Labile [ ] Hostile [ ] Angry [ ] Congruent with mood [ ] Incongruent with mood 4. MOOD: [X] Good [ ] Fair [ ] Irritable [ ] Tearful/crying [ ] Hopeless [ ] Guilty 5. HYGIENE: [X] Good [ ] Well-groomed [ ] Unkempt [ ] Body odor 6. DRESSED: [X]Casually [ ] Professional casual [ ] Neat [ ] Disheveled 7. EYE CONTACT is: [X] Good [ ] Fair [ ] Intermittent [ ] Direct [ ]Avoidant SUPPORT SYSTEMS Informal supports: Woodmere's partner is his primary caregiver. She assists with ADLs, IADLs, medication management and general oversight. She's also able to provide transportation. The two moved into her mother's trailer home several years ago, so she could take care of both her mother and partner when he began showing signs of dementia. The trailer is now in her name. Partner's name is on all his bank accounts and she manages the finances. He receives 19 hours of WEATHERIZATION AND HOUSING INSPECTOR from the [place] and they have good rapport with current WEATHERIZATION AND HOUSING INSPECTOR. Formal supports: [X]Homemaker/Home Health Aide [X]Inpatient/in-home respite [ ]Adult Day Health Care [ ]VNA/Skilled Home Health Care [ ]Elder Services [ ]Meals on Wheels [ ]Transportation [ ]Personal Emergency Response System [ ]Home Oxygen [ ]Other: OXYGEN SAFETY [X]N/A [ ]No unsafe behavior observed [ ]Unsafe behavior observed ([facility] Home Oxygen Safety Checklist must be completed if unsafe behavior observed) SUBSTANCE USE Alcohol use: None Nicotine use: None Other: Is Woodmere interested in substance abuse/smoking cessation treatment? [ ]Yes [X]No PSYCHIATRIC HISTORY: No history of mental health issues or treatment reported. CRIMINAL HISTORY: Do you have a legal history(arrests,incarcerati ons,probation,parole,divorc e,child custody issues)? No I/ADL FUNCTIONAL ASSESSMENT Davis Index of [place] in Activities of Daily Living: Bathing: [ ] Independent (1) * Bathes self completely or needs help in bathing only a single part of the body such as the back, genital area or disabled extremity. [X] Dependent (0) * Needs help with bathing more than one part of the body, getting in or out of the tub or shower. Requires total bathing. Dressing: [ ] Independent (1) * Gets clothes from closets and drawers and puts on clothes and outer garments complete with fasteners. May have help tying shoes. [X] Dependent (0) * Needs help with dressing self or needs to be completely dressed. Toileting: [X] Independent (1) * Goes to toilet, gets on and off, arranges clothes, cleans genital area without help. [ ] Dependent (0) * Needs help transferring to the toilet, cleaning self or uses bedpan or commode. Transferring: [X] Independent (1) * Independent (1) - Moves in and out of bed or chair unassisted. Mechanical transferring aides are acceptable. [ ] Dependent (0) * Needs help in moving from bed to chair or requires a complete transfer. Continence: [ ] Independent (1) * Exercises complete self-control over urination and defecation. [X] Dependent (0) * Is partially or totally incontinent of bowel or bladder. Feeding: [X] Independent (1) * Gets food from plate into mouth without help. Preparation of food may be done by another person. [ ] Dependent (0) * Needs partial or total help with feeding or requires parenteral feeding. Total Points = 3 - Score Explanation: 6 = High (patient independent), 0 = Low (patient very dependent) VALERIO INSTRUMENTAL ACTIVITIES OF DAILY LIVING: Telephone use: [ ](1) Operates a telephone via own initiative; looks up and dials numbers, etc. [ ](1) Dials a few well known numbers [ ](1) Answers phone but does not dial [X](0) Does not use telephone at all Shopping: [ ](1) Takes care of all shopping needs independently [ ](0) Shops independently for small purchases [ ](0) Needs to be accompanied on any shopping trip [X](0) Completely unable to shop Meal Preparation: [ ](1) Plans, prepares, and serves adequate meals independently [ ](0) Prepares adequate meals if supplied with ingredients [ ](0) Heats, serves, and prepares meals but does not maintain adequate diet [X](0) Needs to have all meals prepared and served Housekeeping: [ ](1) Maintains house alone or with occasional assistance [ ](1) Performs light daily tasks such as dishwashing, bed making [ ](1) Performs light daily tasks but cannot maintain acceptable level of cleanliness. [ ](1) Needs help with all home maintenance tasks [X](0) Does not participate in any housekeeping tasks Laundry: [ ](1) Does personal laundry completely [ ](1) Launders small items; rinses stockings, etc. [X](0) All laundry must be done by others Transportation: [ ](1) Travels independently on public transportation or drives own car [ ](1) Arranges own travel via taxi, but not otherwise use public transportation program [X](1) Travels only when accompanied by others [ ](0) Does not travel at all Medication mgmt: [ ](1) Is responsible for taking correct medication in correct dose, at correct time [ ](0) Takes responsibility if medication is prepared in advance in separate dosages [X](0) Is not capable of dispensing medications Financial mgmt: [ ](1) Manages financial matters independently (budgets, writes own checks, pays rent) [ ](1) Manages day to day purchases but needs help with banking, major purchases, etc [X](0) Incapable of handling money Do you have [place] contracted Home Health Aide Services?Yes,(explain) Agency Providing WEATHERIZATION AND HOUSING INSPECTOR Services: Leilani Chapin Are you satisfied with your personal care provided by the agency? YES Do you feel safe with the personal care services provided by the agency? YES FINANCIAL STATUS Income sources: [ ] VA pension [ ] Residential [ ] [place] compensation [ ] [place] Annuity [ ] Aid & Attendance [ ] [address] [X] SS Residential [ ] SS Disability [ ] Private pension [ ] SSI [ ] Other: Income amount: Undisclosed Financial hardship reported: [ ] Yes [X] No Who Manages Finances: Significant other Copay status: Outpatient Visits:[X] Exempt [ ] Non-Exempt Medications: [X] Exempt [ ] Non-Exempt Insurance: [ ] Medicare A only [X] Medicare A and B [ ] Medicare HMO: [ ] Medicaid: [ ] Supplemental insurance to Medicare: [ ] Other Private insurance: ADVANCE DIRECTIVE: Does the [place] have: VA Advance directives on file? [X] Yes [ ] No State Authorized Health Care Proxy Document on file? [ ] Yes [X] No If yes, was document reviewed with ? [X] Yes [ ] No [X] Current [ ] Needs to be updated HCP:Lakshmi Dhaliwal If no , were advanced directives discussed with Wood[place]? [ ] Yes [ ] No Legal guardian? [ ] Yes [X] No Power of Appliance Technician? [ ] Yes [X] No Conservator/Fiduciary? [ ] Yes [X] No Is there evidence of abuse or neglect? 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 [ ] Yes [X] No If yes, describe: COGNITIVE ASSESSMENT Is Vet a poor historian ? [X] Yes [ ] No Defers to a caregiver/family member? [X] Yes [ ] No Expresses concern over memory? [ ] Yes [X] No Concerns identified: Presence of difficult behaviors? [ ] Yes [X] No If yes, please describe: Does Vet have a diagnosis of cognitive impairment? [X] Yes [ ] No Dx: White Brain Matter Hx of neuropsych testing? If yes, dates/location: Cognitive Screening: [X] Is Indicated [ ] Is Not Indicated [ ] Unable To Complete [ ] Declined by Vet Further cognitive evaluation requested by Wood[place]: [ ] Yes [X] No The Blessed Orientation Memory Concentration (BOMC) Test: SCORE 4 1.) What year is it now? 3 2.) What month is it now? 0 3.) About what time is it? 0 4.) Count backwards 20 to 1. 4 5.) Say the months in reverse order (start with January) 10 6.) Repeat the memory phrase. (1)Tyler (1)Oscar (1)Morales (1)Yovanny (1)Roel Score & Interpretation: 21 -- Dementia CAREGIVER STATUS: Does the have a caregiver who provides substantive assistance on an ongoing basis for the Woodmere in the Woodmere's place of residence? (not including paid professional caregivers) YES = [place] Interview: Caregiver Name: Lakshmi Dhaliwal 1. Do you feel that because of the time you spend with your relative, you don't have enough time for yourself? [ ] 0 = Never [ ] 1 = Rarely [X] 2 = Sometimes [ ] 3 = Quite frequently [ ] 4 = Nearly always 2. Do you feel stressed between caring for your relative and trying to meet other responsibilities such as work or family? [ ] 0 = Never [ ] 1 = Rarely [X] 2 = Sometimes [ ] 3 = Quite frequently [ ] 4 = Nearly always 3. Do you feel strained when you are around your relative? [ ] 0 = Never [ ] 1 = Rarely [X] 2 = Sometimes [ ] 3 = Quite frequently [ ] 4 = Nearly always 4. Do you feel unsure about what to do about your relative? [ ] 0 = Never [X] 1 = Rarely [ ] 2 = Sometimes [ ] 3 = Quite frequently [ ] 4 = Nearly always Total score = 7 * A score of 8 or higher reflects high burden and needs further follow-up. Needs identified by caregiver: Caregiver denies need for any additional support currently. SOCIAL WORK SUMMARY: Wood[place]/Caregiver has been provided with information regarding: VA AND COMMUNITY RESOURCES [ ] VA Home Health Aide Services [ ] Elder Care Services [ ] Inpatient/In-Home Respite [ ] Adult Day Health [ ] Hospice [ ] Transportation [ ] Guardian Alert/Personal Emergency Response System [X] Half-Way Care: [ ] Eligible for VA contracted group home. [X] Not eligible for VA contracted group home. Advised ferry terminal agent care would fall to private pay or Medicaid. [X] State [facility] Home [ ] Housing: [ ] Assisted Living [ ] Independent Living [ ] Other: [ ] Meals on Wheels [ ] Medicaid/Medicare/Shine for private insurance options [X] VA Benefits/Compensation [ ] Caregiver support group [ ] Outpatient individual therapy [ ] Other: BILLIARD PLAYER PLANNING [X] Patient to stay at home with assistance. [ ] Patient willing to consider SNF. [ ] Declined to discuss shelter planning. ALTERNATIVE PLACEMENT/EMERGENCY PLAN [X] VA Contract Custodial Respite [ ] In-home Respite [ ] Alternative family members providing care [ ] can remain home safely short-term. [ ] is independent and does not require a caregiver. [ ] /Caregiver declined. SW will continue education placement plans for urgent/emergent care on an annual basis. ASSESSMENT NARRATIVE: Mr. Cline is an 88 year old [place] who lives with his significant other and her mother in [place]. Home is accessible. 's partner is his primary caregiver. She assists with ADLs, IADLs, medication management and general oversight. She's also able to provide transportation. The two moved into her mother's trailer home several years ago so she could take care of both her mother and partner when he began showing signs of dementia. The trailer is now in her name. Partner's name is on all his bank accounts, and she manages the finances. He receives 19 hours of WEATHERIZATION AND HOUSING INSPECTOR from the [facility] and they have good rapport with current WEATHERIZATION AND HOUSING INSPECTOR. 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 He scored a 21 on [facility] Exam indicating dementia. Sometimes he is more confused than others. She tries to get him out of the house and go for rides-- get something to eat etc., to increase his socialization/stimulation. WEATHERIZATION AND HOUSING INSPECTOR assists with puzzles and Bingo when time allows. Lakshmi is committed to continue caring for Woodmere at home while waiting on bed to open at the [facility] in [place]. She applied in January and was told it would be an 8 month- 1 year wait. She declined need for any additional caregiver support at this time. SOCIAL WORK PLAN OF CARE: --Provide significant other with contacts for questions regarding possible chemical exposure in [place]. --Provide psychosocial support as needed. --Next annual assessment to be conducted April 2024 unless otherwise indicated. Advance Directive Screen MH AD: Patient has an Advance Directive on file at this [facility]. No updates are needed currently. The patient received education about Advance Directives and written notification of his/her rights. Suicide Screen: C-SSRS Screening [place]-Suicide Severity Rating Scale (C-SSRS Screener) 1. Over the past month, have you wished you were or wished you could go to sleep and not wake up? No 2. Over the past month, have you had any actual thoughts of killing yourself? No 3. Over the past month, have you been thinking about how you might do this? Response not required due to responses to other questions. 4. Over the past month, have you had these thoughts and had some intention of acting on them? Response not required due to responses to other questions. 5. Over the past month, have you started to work out or worked out the details of how to kill yourself? Response not required due to responses to other questions. 6. If yes, at any time in the past month did you intend to carry out this plan? Response not required due to responses to other questions. 7. In your lifetime, have you ever done anything, started to do anything, or prepared to do anything to end your life (for example, collected pills, obtained a gun, gave away valuables, went to the roof but didn't jump)? No 8. If YES, was this within the past 3 months? Response not required due to responses to other questions. Toxic Exposure Screening: The [place]/caregiver was asked if they believe the [place] experienced any toxic exposure(s), such as Airborne Hazards and Open Burn [place], [place] War related exposures, Agent [place], Radiation, contaminated water at [place] or other such exposures, while serving in the Armed Forces. Wood[place]/caregiver believes the [place] was exposed to the following while serving in the Armed Forces: Other exposures: Comment: Reports there were chemicals being sprayed on [place] in [place] during War. Uncertain of what it was. [place]/caregiver was made aware of educational resources and printed information was offered and provided if desired. Benefits/Claims Questions Wood[place]/caregiver was informed of local point of contact. Contact information for local resources: Benefits/Claim for Disability Compensation Questions:National VBA [place] Healthcare Enrollment: [facility] Eligibility direct dialed at [phone] Registry: Environmental Health Coordinator ext [phone] Toxic Exposure Screening Follow-Up reminder is needed. Name of person notified: Saray Garcia APRN Depression Screening: Perform PHQ-2 A PHQ-2 screen was performed. The score was 0 which is a negative screen for depression. Over the past two weeks, how often have you been bothered by the following problems? 1. Little interest or pleasure in doing things Not at all 2. Feeling down, depressed, or hopeless Not at all Alcohol Use Screen (AUDIT-C): Alcohol Screen: SCREEN FOR ALCOHOL (AUDIT-C) An alcohol screening test (AUDIT-C) was negative (score=0). 1. How often did you have a drink containing alcohol in the past year? Consider a drink to be a 12 ounce can or bottle of regular beer, 8 ounces of malt liquor, a 5 ounce glass of table wine, or a 1.5 ounce shot of liquor (like scotch, gin, or vodka). Never 2. How many drinks containing alcohol did you have on a typical day when you were drinking in the past year? Response not required due to responses to other questions. 3. How often did you have six or more drinks on one occasion in the past year? Response not required due to responses to other questions. RHS Screen: RHS Screen Session Format: Face to Face Environmental Check Screening was not completed at this time due to: Another adult present Homelessness/Food Insecurity Screen: The [place] reports the following: Within the past 12 months, you worried whether your food would run out before you got money to buy more. Never true Within the past 12 months, the food you bought just didn't last and you didn't have money to get more. Never true /lalo/ ESTEPHANIE DANIELLE [facility] Tennis Director Signed: 05/25/2023 12:07 05/25/2023 ADDENDUM STATUS: COMPLETED [place] had a positive toxic exposure screening. Tennis Director to provide caregiver with contacts to discuss further. He reports the spraying of chemicals while [place] in [place]. Does not need medical follow up. /lalo/ ESTEPHANIE DANIELLE [facility] Tennis Director Signed: 05/25/2023 12:09 Receipt Acknowledged By: 05/25/2023 14:39 /lalo/ SARAY GARCIA RN,MSN,[employer]ALS CONSULTANT-C [facility] NURSE PRACTITIONER 05/25/2023 ADDENDUM STATUS: COMPLETED Toxic Exposure Screening Follow-Up: Exposure Concern(s): 05/24/2023 Other Environmental Concerns - Toxic Exposure Concern Reports there were chemicals being [place] [facility] during War. Uncertain of what it was. 06/17/2022 Doesnt Know - Toxic Exposure Concern Follow-up Question(s): 05/24/2023 Benefits/Claims Questions - Toxic Exposure Concern 06/17/2022 Benefits/Claims Questions - Toxic Exposure Concern /caregiver has health or medical concerns related to their concern of environmental exposure. Concern: He reports the spraying of chemicals in [place] The following connections were provided to the /caregiver: Consult/Referral to Social Work /lalo/ SARAY GARCIA RN,MSN,[employer] CONSULTANT-C [facility] NURSE PRACTITIONER Signed: 05/25/2023 14:41 FABI BLEDSOERL [facility]ITALCH[facility]
--- OUTSIDE RECORDS SUMMARY | 2024-03-07 06:44 | XMS_ITS | Encounter Summary ---
Author Name [facility] (MD) Organization [facility] (MD) Address [address] [place] [id number] Care Team Providers Care Web Merchant Name Role Phone RAMONA HUNTER Primary Care [...] PART B Feb 27, 2017 PART B [id number] ARONGUS,GUSTAVO NRY PATIENT MEDICARE (WNR) MEDICARE (M) PART B Feb 27, 2017 PART B [id number] ARONGUS,GUSTAVO NRY PATIENT MEDICARE (WNR) MEDICARE (M) PART A Feb 27, 2001 PART A [id number] [phone] WILGUS,GUSTAVO NRY PATIENT MEDICARE (WNR) MEDICARE (M) PART A Feb 27, 2001 PART A [id number] WILGUS,HE NRY PATIENT Selected Encounter This section includes the information on record at MD for the Encounter. Date/Time Encounter Type Encounter Description Reason Pro vider Source Jun 19, 2023 10:20 AM Outpatient Encounter COMMUNITY CARE CONSULT IHE [...] 11, 2023 01:45 PM AMBULATORY - MEDICINE [place] [facility] [place] [facility] Oct 04, 2023 02:00 PM AMBULATORY - REHAB MEDICIN E [facility] [place] [facility] Oct 04, 2023 03:00 PM AMBULATORY - MEDICINE MD [facility] [place] [facility] Oct 04, 2023 03:30 PM AMBULATORY - MEDICINE MD [facility] [place] [facility] Oct 04, 2023 04:15 PM AMBULATORY - MEDICINE MD [facility] [place] [facility] Nov 28, 2023 08:00 AM AMBULATORY - MEDICINE MD [facility] [place] [facility] Dec 08, 2023 08:00 AM AMBULATORY - MEDICINE [facility] Dec 08, 2023 03:00 PM AMBULATORY - [facility] Lab Results: +/- 30 days of the encounter This section includes the Chemistry and Hematology Lab Results on record with MD for the patient. Radiology Reports and Pathology Reports are provided separately, in subsequent sections. Lab Results This section contains the Chemistry/Hematology Results that were resulted 30 days before or 30 daysafter the date of the Encounter. Date/Time Source Result Type Result - Unit Interpretation Reference Range Comment May 23, 2023 02:11 PM [facility]ITALUSE[facility] THYROID T4 FREE(FT4) Specimen Type: SERUM No comment entered. Ordering Provider: Alex HUNTER Report Released Date/Time: May 11, 2023 02:45 PM Reporting Lab: [facility] [place] [facility] [address] [facility] [address] Performing Lab: [place] [facility] [place] [facility] [address] [facility] [address] THYROID T4 FREE(FT4) 1.03 ng/dL 0.6-1.6 May 23, 2023 02:11 PM [facility] [place] [facility] THYROID TOTAL T3 Specimen Type: SERUM No comment entered. Ordering Provider: Alex HUNTER Report Released Date/Time: May 11, 2023 02:45 PM Reporting Lab: [facility] [place] [facility] [address] [facility] [address] Performing Lab: [facility] [place] [facility] [address] [facility] [address] THYROID TOTAL T3 75.21 ng/dL 35-193 May 23, 2023 02:11 PM [facility] TSH Specimen Type: SERUM No comment entered. Ordering Provider: Alex HUNTER Report Released Date/Time: May 11, 2023 02:45 PM Reporting Lab: [facility] [place] [facility] [address] [facility] [address] Performing Lab: [facility] [place] [facility] [address] [facility] [address] TSH 4.54 u[IU]/mL 0.35-5.00 May 23, 2023 02:11 PM [facility]ITAL[facility] PT & INR (PROTIME) Specimen Type: PLASMA No comment entered. Ordering Provider: Alex HUNTER Report Released Date/Time: May 11, 2023 02:45 PM Reporting Lab: [facility] [place] [facility] [address] [facility] [address] Performing Lab: [place] [facility] [place] [address] [address] INR 1.0 PROTIME 11.8 s 10.0-13.1 May 23, 2023 02:11 PM [facility]ITAL[facility] CBC AND DIFF (AUTO) Specimen Type: BLOOD No comment entered. Ordering Provider: Alex HUNTER Report Released Date/Time: May 11, 2023 02:45 PM Reporting Lab: [facility] [address] [facility] [address] Performing Lab: [facility] [address] [facility] [address] WBC 6.36 10*3/uL 4.50-11.00 RBC 4.94 10*6/uL 4.23-5.66 HGB 14.7 g/dL 12.8-17 HCT 42.9 39.2-50.4 MCV 86.8 fL 82-99 MCHC 34.3 g/dL 30.8-35.1 PLT 226 10*3/uL 140-360 RDW-CV 13.2 12.0-16.0 [place], Abs 0.47 10*3/uL 0.30-1.10 MCH 29.8 pg 26.2-32.6 Neut % 69.4 43.7-75.8 Lymph % 21.5 14.0-42.3 [place] % 7.4 5.1-13.7 Eos % 0.6 0.4-6.8 [...] 14, 2022 12:15 PM VA-TOBACCO NEVER USED [facility] Tobacco Use History This section includes a history of the smoking, or tobacco-related health factors, that were collected on or before the date of the Encounter. The data comes from the MD facility where the Encounter took place. Date/Time Smoking Status/Tobacco Use Comment Dane mercado Jan 10, 2019 10:51 AM MD-TOBACCO NEVER USED [facility] [place] [facility] Advance Directives: All historical and current [...] the Encounter. The data comes from all MD treatment facilities. Date/Time Radiology Report Provider Source May 23, 2023 01:54 PM ULTRASOUND THYROID: DILIA MENDOZA [id number] M Exm Date: MAY 23, 2023@13:54 Req Phys: RAMONA HUNTER Loc: CWM/NO/[facility]/PACT 2/SNP (Req'g Img Loc: ULTRASOUND Service: Unknown (Case [id number] COMPLETE) ULTRASOUND THYROID (US Detailed) CPT:69592 Reason for Study: evalute soft mobile nodules to left thyroid area Clinical History: patient will be in [place] 05/22 so this day is preferred Report Status: Verified Date Reported: MAY 23, 2023 Date Verified: MAY 23, 2023 Gear Roller E-Sig:/ES/MORENA RUIZ JR Report: Study: Thyroid ultrasound. [...] Committee. Mariselsler et al., Journal of the [employer] [employer] 2017;14:587-595. Primary Diagnostic Code: No immediate attention required Primary Interpreting Staff: MORENA RUIZ JR, Radiologist (Gear Roller) /MORENA CAMPBELL JR [facility] Encounter Notes: All associated encounter notes This section contains the clinical notes associated to the Encounter. Date/Time Encounter Note(s) Provider Source Jun 19, 2023 10:20 AM NONVA NOTE: LOCAL TITLE: [facility] CARE COORD PLAN STANDARD TITLE: NONVA NOTE DATE OF NOTE: JUN 19, 2023@10:20 ENTRY DATE: JUN 19, 2023@10:20:49 AUTHOR: XOCHITL BARKER EXP COSIGNER: URGENCY: STATUS: COMPLETED Emergency Notification Intake Date Presenting to the Facility: May Method of Contact: Notified from [employer] worklist Notification ID: [id number] [facility] Referral #: [id number] [facility] Name: Hospital: [facility] Address: City: [place] State: [place] Zip Code: Phone : [facility] Facility Point of Contact: Name: Tanika Phone: Chief complaint: R55 Primary Diagnosis: Disposition Admitted Route of Admission: ER Date of Admission: May Admitting Diagnosis: R55 Community Care Provider: Confirm Level of Care: /lalo/ XOCHITL TRAN Signed: 06/19/2023 10:22 Receipt Acknowledged By: 06/19/2023 16:37 /es/ JODI SUTTON, RN [facility] radio time buyer 06/19/2023 12:52 /es/ RAMONA HUNTER RN,MSN,SENIOR [employer] CONSULTANT-C [facility] NURSE PRACTITIONER 07/04/2023 08:12 /es/ Marjorie MARIE,RN,[facility] TRANSFER/TRAVELING COORDINATOR XOCHITL BARKER DOUGLASS
--- OUTSIDE RECORDS SUMMARY | 2024-03-07 06:44 | XMS_ITS | Encounter Summary ---
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 Name Role Phone RAMONA HUNTER Primary [...] Member ID Insurance Provider's Telephone Number Policy Sloano's Name Patient's Relationship to Policy [place] MEDICARE (WNR) MEDICARE (M) PART B Feb 27, 2017 PART B [id number] ARONGUS,GUSTAVO NRY PATIENT MEDICARE (WNR) MEDICARE (M) PART B Feb 27, 2017 PART B [id number] ARONGUS,GUSTAVO NRY PATIENT MEDICARE (WNR) MEDICARE (M) PART A Feb 27, 2001 PART A [id number] [phone] ARONGUS,GUSTAVO NRY PATIENT MEDICARE (WNR) MEDICARE (M) PART A Feb 27, 2001 PART A [id number] WILGUS,HE NRY PATIENT Selected Encounter This section includes the information on record at [place] for the Encounter. Date/Time Encounter Type Encounter Description Reason Provider Source May 23, 2023 03:52 PM Outpatient Encounter TELEPHONE [facility] ICD-10-CM D17.9 Benign lipomatous neoplasm, unspecified RAMONA HUNTER IHYg Encounter Template Text not used by [place] Assessments - Encounter Diagnoses This section includes the primary and secondary diagnoses documented for the Encounter. Date/Time Primary/Secondary Diagnosis Diagnosis Name Provider Source May 23, 2023 03:52 PM PRIMARY Benign lipomatous neoplasm, unspecified [facility] Plan of Treatment: Future Appointments (+ 6 months) and Future Tests (+/- 45 days) The Plan of Treatment section includes future care activities for the patient from all [place] treatmentfacilities. This section includes future appointments and future orders which are active, pending or scheduled. Future Appointments This section includes appointments that were scheduled to occur 6 months from the date of the Encounter, up to a maximum of 20 appointments. The data comes from all [place] treatment facilities. Appointment Date/Time Appointment Type Appointme nt Facility Name July 11, 2023 01:45 PM AMBULATORY - MEDICINE [place] [facility] [place] [facility] Oct 04, 2023 02:00 PM AMBULATORY - REHAB MEDICIN [place] [facility] [place] [facility] Oct 04, 2023 03:00 PM AMBULATORY - MEDICINE [place] [facility] [place] [facility] Oct 04, 2023 03:30 PM AMBULATORY - MEDICINE [facility] [place] [facility] Oct 04, 2023 04:15 PM AMBULATORY - MEDICINE [facility] [place] [facility] Lab Results: +/- 30 days of the encounter This section includes the Chemistry and Hematology Lab Results on record with [place] for the patient. Radiology Reports and Pathology Reports are provided separately, in subsequent sections. Lab Results This section contains the Chemistry/Hematology Results that were resulted 30 days before or 30 daysafter the date of the Encounter. Date/Time Source Result Type Result - Unit Interpretation Reference Range Comment May 23, 2023 02:11 PM [place] [facility] [place] [facility] THYROID T4 FREE(FT4) Specimen Type: SERUM No comment entered. Ordering Provider: Alex HUNTER Report Released Date/Time: May 11, 2023 02:45 PM Reporting Lab: [facility] [place] [facility] [address] [facility] [address] Performing Lab: [facility] [place] [facility] [address] [facility] [address] THYROID T4 FREE(FT4) 1.03 ng/dL 0.6-1.6 May 23, 2023 02:11 PM [facility] [place] [facility] THYROID TOTAL T3 Specimen Type: SERUM No comment entered. Ordering Provider: Alex HUNTER Report Released Date/Time: May 11, 2023 02:45 PM Reporting Lab: [facility] [place] [facility] [address] [facility] [address] Performing Lab: [facility] [place] [facility] [address] [facility] [address] THYROID TOTAL T3 75.21 ng/dL 35-193 May 23, 2023 02:11 PM [facility] TSH Specimen Type: SERUM No comment entered. Ordering Provider: Alex HUNTER Report Released Date/Time: May 11, 2023 02:45 PM Reporting Lab: [facility] [place] [facility] [address] [facility] [address] Performing Lab: [place] [facility] [place] [address] [address] TSH 4.54 u[IU]/mL 0.35-5.00 May 23, 2023 02:11 PM [facility] [place] [facility] PT & INR (PROTIME) Specimen Type: PLASMA No comment entered. Ordering Provider: Alex HUNTER Report Released Date/Time: May 11, 2023 02:45 PM Reporting Lab: [facility] [place] [facility] [address] [facility] [address] Performing Lab: [facility] [place] [address] [address] INR 1.0 PROTIME 11.8 s 10.0-13.1 May 23, 2023 02:11 PM [facility] CBC AND DIFF (AUTO) Specimen Type: BLOOD No comment entered. Ordering Provider: Alex HUNTER Report Released Date/Time: May 11, 2023 02:45 PM Reporting Lab: [facility] [address] [facility] [address] Performing Lab: [facility] [address] [facility] [address] WBC 6.36 10*3/uL 4.50-11.00 RBC 4.94 10*6/uL 4.23-5.66 HGB 14.7 g/dL 12.8-17 HCT 42.9 39.2-50.4 MCV 86.8 fL 82-99 MCHC 34.3 g/dL 30.8-35.1 PLT 226 10*3/uL 140-360 RDW-CV 13.2 12.0-16.0 [place], Abs 0.47 10*3/uL 0.30-1.10 MCH 29.8 pg 26.2-32.6 Neut % 69.4 43.7-75.8 Lymph % 21.5 14.0-42.3 [place] % 7.4 5.1-13.7 Eos % 0.6 0.4-6.8 [...] and tobacco- related health factors from the [place] facility where the Encounter took place. Current Smoking Status This section includes the most current smoking, or tobacco-related health factor, from the [place] facility where the Encounter took place. Date/Time Current Smoking Status Comment Facil ity Dec 14, 2022 12:15 PM VA-TOBACCO NEVER USED [facility] Tobacco Use History This section includes a history of the smoking, or tobacco-related health factors, that were collected on or before the date of the Encounter. The data comes from the [place] facility where the Encounter took place. Date/Time Smoking Status/Tobacco Use Comment Dane mercado Jan 10, 2019 10:51 AM VA-TOBACCO NEVER USED [facility] Advance Directives: All historical and current Section Date Range: From patient's date of to the date document was created. This section includes ALL of a patient's completed or amended [place] Advance and Rescinded Directives. The entries below indicate that a directive exists for the patient, but an actual copy is not included with this document. The data comes from all [place] facilities. Date Advance Directives Provider Source Aug [...] the Encounter. The data comes from all [place] treatment facilities. Date/Time Radiology Report Provider Source May 23, 2023 01:54 PM ULTRASOUND THYROID: DILIA MENDOZA [id number] -[id number] M Exm Date: MAY 23, 2023@13:54 Req Phys: RAMONA HUNTER Loc: CWM/NO/[facility]/PACT 2/SNP (Req'g Img Loc: ULTRASOUND Service: Unknown (Case [id number] COMPLETE) ULTRASOUND THYROID (US Detailed) CPT:05750 Reason for Study: evalute soft mobile nodules to left thyroid area Clinical History: patient will be in [place] 05/22 so this day is preferred Report Status: Verified Date Reported: MAY 23, 2023 Date Verified: MAY 23, 2023 Authorization Representative E-Sig:/ES/MORENA RUIZ JR Report: Study: Thyroid ultrasound. [...] Committee. Mariselsisadora et al., Journal of the [employer] 2017;14:587-595. Primary Diagnostic Code: No immediate attention required Primary Interpreting Staff: MORENA RUIZ JR, Radiologist (Authorization Representative) /MORENA CAMPBELL JR [place] [facility] May 17, 2023 01:14 PM NECK SOFT TISSUE: DILIA MENDOZA [id number] -[id number] M Ex Date: MAY 17, 2023@13:14 Req Phys: RAMONA HUNTER Loc: CWM/NO/HBPC/PACT 2/SRN (Req'g Img Loc: [facility] 1 Service: Unknown (Case [id number] COMPLETE) NECK SOFT TISSUE (RAD Detailed) CPT:23438 Reason for Study: evaluate soft mobile nodules to left thyroid area Clinical History: Please also send to lab Report Status: Verified Date Reported: MAY 17, 2023 Date Verified: MAY 17, 2023 Authorization Representative E-Sig:/ES/MORENA RUIZ JR Report: Study: AP and [...] Primary Interpreting Staff: MORENA RUIZ JR, Radiologist (Authorization Representative) /MORE[facility] CAMPBELL JR [facility] [place] [facility] Encounter Notes: All associated encounter notes This section contains the clinical notes associated to the Encounter. Date/Time Encounter Note(s) Provider Source Jun 21, 2023 02:18 PM ADDENDUM: LOCAL TITLE: Addendum STANDARD TITLE: ADDENDUM DATE OF NOTE: JUN 21, 2023@14:18:54 ENTRY DATE: JUN 21, 2023@14:18:55 AUTHOR: KERI HUNTER COSIGNER: URGENCY: STATUS: COMPLETED Spoke w RN CM patient no longer has hiccups. GF asking about tapering/stopping. Plan to decrease to once daily x 3 days then stop. Will follow. /lalo/ RAMONA HUNTER RN,MSN,MANAGED CARE NURSE-C [facility] NURSE PRACTITIONER Signed: 06/21/2023 14:19 Receipt Acknowledged By: 06/21/2023 16:01 /es/ JODI SUTTON RN [facility] freelance designer --- Original Document --- 06/19/23 ADMINISTRATIVE NOTE: Patient: DILIA MENDOZA Age: 88 Years Sex: Male : 1935 Patient Information Discharge Location: [facility] Primary Care Physician: Not on Staff, PCP Admit Date/Time: 06/16/23 14:51 Discharge Disposition Discharge Disposition: Home with Home Health Discharge Diagnosis Syncope (R55) Atrial fibrillation (I48.91) Intractable hiccups (R06.6) _ Discharge Medications apixaban (apixaban Starter Pack 5 mg oral tablet) 2.5 Milligram By Mouth 2 times a day Docusate (Docusate Sodium Capsule) 100 Milligram 1 capsule By Mouth 2 times a day Gabapentin (gabapentin 100 mg oral capsule) 100 Milligram By Mouth 2 times a day Melatonin 3 Milligram By Mouth Daily at bedtime as needed as needed for sleep Multivitamin (Multivitamin Tablet) 1 tab(s) By Mouth Daily Ocular Lubricant (Artificial Tears1.4%) 2 Drops Eyes, Both Every 12 hours Dryness. Pantoprazole 40 Milligram By Mouth 2 times a day Polyethylene Glycol 3350 (Polyethylene Glycol Powder) 1 pack/packet 17 gram By Mouth Daily Senna (Senna 8.6 mg oral tablet) 8.6 Milligram 1 tab(s) By Mouth Daily Inpatient Medications Medications (11) Active SCHEDULED: (5) Apixaban 2.5 mg Tablet (apixaban) 2.5 mg, By Mouth, 2 times a day Gabapentin 100 mg Capsule (gabapentin 100 mg oral capsule) 100 mg, By Mouth, 2 times a day NaCl 0.9% Flush 3ml (NaCL 0.9% Flush) 3 mL, IV Push, Every 8 hours Pantoprazole 40 mg EC Tablet (pantoprazole 40 mg oral delayed release tablet) 40 mg, By Mouth, 2 times a day Polyvinyl Alcohol 1.4% Opthalmic Solution/Artificial Tears (Artificial Tears1.4%) 2 drops, Eyes, Both, Every 12 hours CONTINUOUS: (0) PRN: (6) Dextromethorphan-Guaifenesi n 20 mg-200 mg/10 mL Liqu UD (Robitussin DM Liquid) 10 mL, By Mouth, Every 4 hours Docusate Sodium 100 mg Capsule (Docusate Sodium Capsule) 100 mg 1 capsule, By Mouth, 2 times a day Melatonin 3 mg Tablet (Melatonin Tablet) 3 mg, By Mouth, Daily at bedtime NaCl 0.9% Flush 3ml (NaCL 0.9% Flush) 3 mL, IV Push, Every 8 hours Senna Tablet 8.6 mg 1 tablet, By Mouth, 2 times a day Simethicone 80 mg Chewable Tablet (Simethicone Tablet) 80 mg, Chew, 3 times a day Allergies Allergies (Active and Proposed Allergies Only) Latex (Severity: Unknown severity, Onset: Unknown) Reactions: rash/hives Future Appointments Monday 1:45 PM EDT With: Delonte Burgos Where: [facility] [address] [place] [address]- Status: Pending Hospital Course 88-year-old male transferred to medical service after having a syncopal episode in [facility] Syncope (R55): Unclear etiology. No postictal confusion no tongue bite urinary incontinence however patient actually went to have urine in the bathroom when this episode happened. Hemodynamically stable, no hypoxia, EKG no evidence of tacky or bradycardia arrhythmia or high-grade AV block. Patient is currently off amiodarone not on any AV rex control agents. Patient had previous history of bradycardia with more than 3.4-second pauses. 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 He is very poor drinker per , which leans towards a possibly orthostatic episode which bowel/bladder evacuation. Electrolytes within normal limit. Patient is already in plan for discharge tomorrow. Atrial fibrillation (I48.91): Currently in sinus rhythm. Continue Eliquis. No rate control medication at present. Patient was taken off amiodarone after consulting with cardiology by [place] physician Intractable hiccups (R06.6): Resolved after starting gabapentin. Continue gabapentin VTE Prophylaxis: Eliquis ? VTE Prophylaxis Assessment: VTE Prophylaxis Ordered Objective Assessment and Plan Discharge Planning: Vital Signs Temperature: 97.5 DegF (06/17/23 07:40:00) Temperature Route: Oral (06/17/23 07:40:00) Pulse Rate: 64 bpm (06/17/23 07:40:00) Respiratory Rate: 16 br/min (06/17/23 09:55:00) Systolic Blood Pressure: 149 mm Hg High (06/17/23 07:40:00) Diastolic Blood Pressure: 75 mm Hg (06/17/23 07:40:00) Blood pressure sites: Arm, right (06/17/23 07:40:00) Mean Arterial Pressure: 100 mm Hg (06/17/23 07:40:00) Pulse Pressure: 74 mm Hg (06/17/23 07:40:00) Oxygen Saturation: 97 % (06/17/23 07:40:00) Liters per Minute: 0 L/min (06/17/23 07:40:00) Mode of Delivery (Oxygen): Room air (06/17/23 07:40:00) Early Warning Score: 2 (06/17/23 10:31:47) Intake/Output 06/15 14:51 06/16 07:00 06/15 07:00 06/14 07:00 06/13 07:00 06/16 11:00 06/16 11:00 06/16 06:59 06/15 06:59 06/14 06:59 Intake 1040 460 580 0 0 Output 0 0 0 0 0 Net Total 1040 460 580 0 0 Urine Count 1 0 1 0 0 Physical Exam Pending Results No Pending Results Patient Instructions You were admitted in [facility] for physical therapy rehabilitation. Just before discharge today he had an episode of dizziness/syncope while you are in the bathroom. The episode was momentarily and he regained consciousness and were able to answer all questions immediately. Your labs are also consistent with mild SIN/dehydration and you were dry as well. On telemetry there were no significant pauses, bradycardic episodes that would warrant further intervention for now. You received fluids and after which your labs improved. After discussion with cardiology from [facility] staff your amiodarone was discontinued as you are having dizziness episodes with this. After discharge please contact your cardiology/PCP on further course regarding your atrial fibrillation. Continue your other home meds Post Discharge Care Discharge * 06/17/23 11:00:00 EDT Home Health Face to Face *Denotes mandatory azevedo *I certify that this patient is under my care and that I or an allowed non- physician working with me had a face to face encounter with the patient on this date: 06/17/2023 11:01 *The encounter with the patient was in whole, or in part, for the following medical condition, which is the primary diagnosis(es) for home health care: Syncope (R55) Atrial fibrillation (I48.91) Intractable hiccups (R06.6) *Select the indications for the discipline/s that are being arranged for this patient. Nursing (select all that apply): [_] None [y_] Medication management (reconciliation, teaching) [_] Chronic disease management [_] Wound care and treatment [_] Home safety evaluation [_] Administer SQ/IM/IV medications [_] Cath care [_] Drain care [_] Trach or GT care Other _ Occupation Therapy (select all that apply): [_] None [_] ADL Management [y_] Fall prevention training [_] Energy conservation [_] Cognitive training Other _ Physical Therapy (select all that apply): [_] None [y_] Functional mobility training [_] Home exercise program to strengthen [y_] Increase ROM [_y] Falls prevention training [_] Home maintenance program for chronic disease Other _ Speech Therapy (select all that apply): [_] None [_] Swallow evaluation and training [_] Speech and language training [_] Cognitive training to process, organize, and/or recall information Other _ *Homebound due to (select all that apply): [_] Inability to leave home without assistance/supervision [_] Inability to ambulate without assistance [_] Pain [_y] Decreased strength and endurance [_] Unsteady gait [_] Severe SOB and fatigue [_] Impaired transfers [_] Inability to negotiate stairs [_] Limited weight bearing [_] Mental status change *Physician Signature: _Kevyn gaines *By signing this, I certify that I have personally evaluated the patient and agree with the findings and recommendations as documented above. FTF Results Discharge Labs CHEM GENERAL Sodium 137 mmol/L () 06/17/2023 10:03 Potassium 4.3 mmol/L () 06/17/2023 10:03 Chloride 104 mmol/L () 06/17/2023 10:03 Bicarbonate Level 28 mmol/L () 06/17/2023 10:03 Anion Gap 5 () 06/17/2023 10:03 Glucose Level 97 mg/dL () 06/17/2023 10:03 BUN 23 mg/dL () 06/17/2023 10:03 Creatinine-Blood 1.4 mg/dL (High) 06/17/2023 10:03 Estimated GFR Creatinine 49 ML/MIN/1.73 M2 () 06/17/2023 10:03 Calcium 8.2 mg/dL (Low) 06/17/2023 10:03 HEME OTHER Hold Lavender Top SPECIMEN DISCARDED AFTER 24 HOURS. () 06/17/2023 10:03 Blood Glucose Trend Glucose Level: 97 mg/dL (06/17/23 10:03:00) _ minutes spent on discharge end of copy and paste /lalo/ RAMONA HUNTER RN,MSN,MANAGED CARE NURSE-C [facility] NURSE PRACTITIONER Signed: 06/19/2023 09:36 06/19/2023 ADDENDUM STATUS: COMPLETED CC cardiology consult placed. 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 /lalo/ RAMONA HUNTER RN,MSN,MANAGED CARE NURSE-C [facility] NURSE PRACTITIONER Signed: 06/19/2023 09:42 Receipt Acknowledged By: 06/19/2023 16:05 /lalo/ JODI SUTTON, RN [facility] freelance designer NENA HUNTER [place] [facility] Jun 19, 2023 09:42 AM ADDENDUM: LOCAL TITLE: Addendum STANDARD TITLE: ADDENDUM DATE OF NOTE: JUN 19, 2023@09:42 ENTRY DATE: JUN 19, 2023@09:42:01 AUTHOR: KERI HUNTER COSIGNER: URGENCY: STATUS: COMPLETED CC cardiology consult placed. 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 /lalo/ RAMONA HUNTER RN,MSN,MANAGED CARE NURSE-C [facility] NURSE PRACTITIONER Signed: 06/19/2023 09:42 Receipt Acknowledged By: 06/19/2023 16:05 /lalo/ JODI SUTTON, RN [facility] freelance designer --- Original Document --- 06/19/23 ADMINISTRATIVE NOTE: Patient: DILIA MENDOZA Age: 88 Years Sex: Male : 1935 Patient Information Discharge Location: [facility] Primary Care Physician: Not on Staff, PCP Admit Date/Time: 06/16/23 14:51 Discharge Disposition Discharge Disposition: Home with Home Health Discharge Diagnosis Syncope (R55) Atrial fibrillation (I48.91) Intractable hiccups (R06.6) _ Discharge Medications apixaban (apixaban Starter Pack 5 mg oral tablet) 2.5 Milligram By Mouth 2 times a day Docusate (Docusate Sodium Capsule) 100 Milligram 1 capsule By Mouth 2 times a day Gabapentin (gabapentin 100 mg oral capsule) 100 Milligram By Mouth 2 times a day Melatonin 3 Milligram By Mouth Daily at bedtime as needed as needed for sleep Multivitamin (Multivitamin Tablet) 1 tab(s) By Mouth Daily Ocular Lubricant (Artificial Tears1.4%) 2 Drops Eyes, Both Every 12 hours Dryness. Pantoprazole 40 Milligram By Mouth 2 times a day Polyethylene Glycol 3350 (Polyethylene Glycol Powder) 1 pack/packet 17 gram By Mouth Daily Senna (Senna 8.6 mg oral tablet) 8.6 Milligram 1 tab(s) By Mouth Daily Inpatient Medications Medications (11) Active SCHEDULED: (5) Apixaban 2.5 mg Tablet (apixaban) 2.5 mg, By Mouth, 2 times a day Gabapentin 100 mg Capsule (gabapentin 100 mg oral capsule) 100 mg, By Mouth, 2 times a day NaCl 0.9% Flush 3ml (NaCL 0.9% Flush) 3 mL, IV Push, Every 8 hours Pantoprazole 40 mg EC Tablet (pantoprazole 40 mg oral delayed release tablet) 40 mg, By Mouth, 2 times a day Polyvinyl Alcohol 1.4% Opthalmic Solution/Artificial Tears (Artificial Tears1.4%) 2 drops, Eyes, Both, Every 12 hours CONTINUOUS: (0) PRN: (6) Dextromethorphan-Guaifenesi n 20 mg-200 mg/10 mL Liqu UD (Robitussin DM Liquid) 10 mL, By Mouth, Every 4 hours Docusate Sodium 100 mg Capsule (Docusate Sodium Capsule) 100 mg 1 capsule, By Mouth, 2 times a day Melatonin 3 mg Tablet (Melatonin Tablet) 3 mg, By Mouth, Daily at bedtime NaCl 0.9% Flush 3ml (NaCL 0.9% Flush) 3 mL, IV Push, Every 8 hours Senna Tablet 8.6 mg 1 tablet, By Mouth, 2 times a day Simethicone 80 mg Chewable Tablet (Simethicone Tablet) 80 mg, Chew, 3 times a day Allergies Allergies (Active and Proposed Allergies Only) Latex (Severity: Unknown severity, Onset: Unknown) Reactions: rash/hives Future Appointments Monday. 2023 1:45 PM EDT With: Delonte Burgos Where: [facility] [address] [place] [address]- Status: Pending Hospital Course 88-year-old male transferred to medical service after having a syncopal episode in [facility] Syncope (R55): Unclear etiology. No postictal confusion no tongue bite urinary incontinence however patient actually went to have urine in the bathroom when this episode happened. Hemodynamically stable, no hypoxia, EKG no evidence of tacky or bradycardia arrhythmia or high-grade AV block. Patient is currently off amiodarone not on any AV rex control agents. Patient had previous history of bradycardia with more than 3.4-second pauses. 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 He is very poor drinker per , which leans towards a possibly orthostatic episode which bowel/bladder evacuation. Electrolytes within normal limit. Patient is already in plan for discharge tomorrow. Atrial fibrillation (I48.91): Currently in sinus rhythm. Continue Eliquis. No rate control medication at present. Patient was taken off amiodarone after consulting with cardiology by [place] physician Intractable hiccups (R06.6): Resolved after starting gabapentin. Continue gabapentin VTE Prophylaxis: Eliquis ? VTE Prophylaxis Assessment: VTE Prophylaxis Ordered Objective Assessment and Plan Discharge Planning: Vital Signs Temperature: 97.5 DegF (06/17/23 07:40:00) Temperature Route: Oral (06/17/23 07:40:00) Pulse Rate: 64 bpm (06/17/23 07:40:00) Respiratory Rate: 16 br/min (06/17/23 09:55:00) Systolic Blood Pressure: 149 mm Hg High (06/17/23 07:40:00) Diastolic Blood Pressure: 75 mm Hg (06/17/23 07:40:00) Blood pressure sites: Arm, right (06/17/23 07:40:00) Mean Arterial Pressure: 100 mm Hg (06/17/23 07:40:00) Pulse Pressure: 74 mm Hg (06/17/23 07:40:00) Oxygen Saturation: 97 % (06/17/23 07:40:00) Liters per Minute: 0 L/min (06/17/23 07:40:00) Mode of Delivery (Oxygen): Room air (06/17/23 07:40:00) Early Warning Score: 2 (06/17/23 10:31:47) Intake/Output 06/15 14:51 06/16 07:00 06/15 07:00 06/14 07:00 06/13 07:00 06/16 11:00 06/16 11:00 06/16 06:59 06/15 06:59 06/14 06:59 Intake 1040 460 580 0 0 Output 0 0 0 0 0 Net Total 1040 460 580 0 0 Urine Count 1 0 1 0 0 Physical Exam Pending Results No Pending Results Patient Instructions You were admitted in [facility] for physical therapy rehabilitation. Just before discharge today he had an episode of dizziness/syncope while you are in the bathroom. The episode was momentarily and he regained consciousness and were able to answer all questions immediately. Your labs are also consistent with mild SIN/dehydration and you were dry as well. On telemetry there were no significant pauses, bradycardic episodes that would warrant further intervention for now. You received fluids and after which your labs improved. After discussion with cardiology from [facility] staff your amiodarone was discontinued as you are having dizziness episodes with this. After discharge please contact your cardiology/PCP on further course regarding your atrial fibrillation. Continue your other home meds Post Discharge Care Discharge * 06/17/23 11:00:00 EDT Home Health Face to Face *Denotes mandatory azevedo *I certify that this patient is under my care and that I or an allowed non- physician working with me had a face to face encounter with the patient on this date: 06/17/2023 11:01 *The encounter with the patient was in whole, or in part, for the following medical condition, which is the primary diagnosis(es) for home health care: Syncope (R55) Atrial fibrillation (I48.91) Intractable hiccups (R06.6) *Select the indications for the discipline/s that are being arranged for this patient. Nursing (select all that apply): [_] None [y_] Medication management (reconciliation, teaching) [_] Chronic disease management [_] Wound care and treatment [_] Home safety evaluation [_] Administer SQ/IM/IV medications [_] Cath care [_] Drain care [_] Trach or GT care Other _ Occupation Therapy (select all that apply): [_] None [_] ADL Management [y_] Fall prevention training [_] Energy conservation [_] Cognitive training Other _ Physical Therapy (select all that apply): [_] None [y_] Functional mobility training [_] Home exercise program to strengthen [y_] Increase ROM [_y] Falls prevention training [_] Home maintenance program for chronic disease Other _ Speech Therapy (select all that apply): [_] None [_] Swallow evaluation and training [_] Speech and language training [_] Cognitive training to process, organize, and/or recall information Other _ *Homebound due to (select all that apply): [_] Inability to leave home without assistance/supervision [_] Inability to ambulate without assistance [_] Pain [_y] Decreased strength and endurance [_] Unsteady gait [_] Severe SOB and fatigue [_] Impaired transfers [_] Inability to negotiate stairs [_] Limited weight bearing [_] Mental status change *Physician Signature: _Kevyn gaines *By signing this, I certify that I have personally evaluated the patient and agree with the findings and recommendations as documented above. FTF Results Discharge Labs CHEM GENERAL Sodium 137 mmol/L () 06/17/2023 10:03 Potassium 4.3 mmol/L () 06/17/2023 10:03 Chloride 104 mmol/L () 06/17/2023 10:03 Bicarbonate Level 28 mmol/L () 06/17/2023 10:03 Anion Gap 5 () 06/17/2023 10:03 Glucose Level 97 mg/dL () 06/17/2023 10:03 BUN 23 mg/dL () 06/17/2023 10:03 Creatinine-Blood 1.4 mg/dL (High) 06/17/2023 10:03 Estimated GFR Creatinine 49 ML/MIN/1.73 M2 () 06/17/2023 10:03 Calcium 8.2 mg/dL (Low) 06/17/2023 10:03 HEME OTHER Hold Lavender Top SPECIMEN DISCARDED AFTER 24 HOURS. () 06/17/2023 10:03 Blood Glucose Trend Glucose Level: 97 mg/dL (06/17/23 10:03:00) _ minutes spent on discharge end of copy and paste /lalo/ RAMONA HUNTER RN,MSN,MANAGED CARE NURSE-C [facility] NURSE PRACTITIONER Signed: 06/19/2023 09:36 NENA HUNTER [facility] [place] [facility] Jun 19, 2023 09:35 AM ADMINISTRATIVE NOTE: LOCAL TITLE: ADMINISTRATIVE NOTE STANDARD TITLE: ADMINISTRATIVE NOTE DATE OF NOTE: JUN 19, 2023@09:35 ENTRY DATE: JUN 19, 2023@09:35:08 AUTHOR: KERI HUNTER EXP COSIGNER: URGENCY: STATUS: COMPLETED SUBJECT: DC note 06/17/23 ADMINISTRATIVE NOTE Has ADDENDA Patient: DILIA MENDOZA Age: 88 Years Sex: Male : 1935 Patient Information Discharge Location: [facility] Primary Care Physician: Not on Staff, PCP Admit Date/Time: 06/16/23 14:51 Discharge Disposition Discharge Disposition: Home with Home Health Discharge Diagnosis Syncope (R55) Atrial fibrillation (I48.91) Intractable hiccups (R06.6) _ Discharge Medications apixaban (apixaban Starter Pack 5 mg oral tablet) 2.5 Milligram By Mouth 2 times a day Docusate (Docusate Sodium Capsule) 100 Milligram 1 capsule By Mouth 2 times a day Gabapentin (gabapentin 100 mg oral capsule) 100 Milligram By Mouth 2 times a day Melatonin 3 Milligram By Mouth Daily at bedtime as needed as needed for sleep Multivitamin (Multivitamin Tablet) 1 tab(s) By Mouth Daily Ocular Lubricant (Artificial Tears1.4%) 2 Drops Eyes, Both Every 12 hours Dryness. Pantoprazole 40 Milligram By Mouth 2 times a day Polyethylene Glycol 3350 (Polyethylene Glycol Powder) 1 pack/packet 17 gram By Mouth Daily Senna (Senna 8.6 mg oral tablet) 8.6 Milligram 1 tab(s) By Mouth Daily Inpatient Medications Medications (11) Active SCHEDULED: (5) Apixaban 2.5 mg Tablet (apixaban) 2.5 mg, By Mouth, 2 times a day Gabapentin 100 mg Capsule (gabapentin 100 mg oral capsule) 100 mg, By Mouth, 2 times a day NaCl 0.9% Flush 3ml (NaCL 0.9% Flush) 3 mL, IV Push, Every 8 hours Pantoprazole 40 mg EC Tablet (pantoprazole 40 mg oral delayed release tablet) 40 mg, By Mouth, 2 times a day Polyvinyl Alcohol 1.4% Opthalmic Solution/Artificial Tears (Artificial Tears1.4%) 2 drops, Eyes, Both, Every 12 hours CONTINUOUS: (0) PRN: (6) Dextromethorphan-Guaifenesi n 20 mg-200 mg/10 mL Liqu UD (Robitussin DM Liquid) 10 mL, By Mouth, Every 4 hours Docusate Sodium 100 mg Capsule (Docusate Sodium Capsule) 100 mg 1 capsule, By Mouth, 2 times a day Melatonin 3 mg Tablet (Melatonin Tablet) 3 mg, By Mouth, Daily at bedtime NaCl 0.9% Flush 3ml (NaCL 0.9% Flush) 3 mL, IV Push, Every 8 hours Senna Tablet 8.6 mg 1 tablet, By Mouth, 2 times a day Simethicone 80 mg Chewable Tablet (Simethicone Tablet) 80 mg, Chew, 3 times a day Allergies Allergies (Active and Proposed Allergies Only) Latex (Severity: Unknown severity, Onset: Unknown) Reactions: rash/hives Future Appointments Monday. 2023 1:45 PM EDT With: Delonte Burgos Where: [facility] [address] [place] [address]- Status: Pending Hospital Course 88-year-old male transferred to medical service after having a syncopal episode in [facility] Syncope (R55): Unclear etiology. No postictal confusion no tongue bite urinary incontinence however patient actually went to have urine in the bathroom when this episode happened. Hemodynamically stable, no hypoxia, EKG no evidence of tacky or bradycardia arrhythmia or high-grade AV block. Patient is currently off amiodarone not on any AV rex control agents. Patient had previous history of bradycardia with more than 3.4-second pauses. 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 He is very poor drinker per , which leans towards a possibly orthostatic episode which bowel/bladder evacuation. Electrolytes within normal limit. Patient is already in plan for discharge tomorrow. Atrial fibrillation (I48.91): Currently in sinus rhythm. Continue Eliquis. No rate control medication at present. Patient was taken off amiodarone after consulting with cardiology by [facility] physician Intractable hiccups (R06.6): Resolved after starting gabapentin. Continue gabapentin VTE Prophylaxis: Eliquis ? VTE Prophylaxis Assessment: VTE Prophylaxis Ordered Objective Assessment and Plan Discharge Planning: Vital Signs Temperature: 97.5 DegF (06/17/23 07:40:00) Temperature Route: Oral (06/17/23 07:40:00) Pulse Rate: 64 bpm (06/17/23 07:40:00) Respiratory Rate: 16 br/min (06/17/23 09:55:00) Systolic Blood Pressure: 149 mm Hg High (06/17/23 07:40:00) Diastolic Blood Pressure: 75 mm Hg (06/17/23 07:40:00) Blood pressure sites: Arm, right (06/17/23 07:40:00) Mean Arterial Pressure: 100 mm Hg (06/17/23 07:40:00) Pulse Pressure: 74 mm Hg (06/17/23 07:40:00) Oxygen Saturation: 97 % (06/17/23 07:40:00) Liters per Minute: 0 L/min (06/17/23 07:40:00) Mode of Delivery (Oxygen): Room air (06/17/23 07:40:00) Early Warning Score: 2 (06/17/23 10:31:47) Intake/Output 06/15 14:51 06/16 07:00 06/15 07:00 06/14 07:00 06/13 07:00 06/16 11:00 06/16 11:00 06/16 06:59 06/15 06:59 06/14 06:59 Intake 1040 460 580 0 0 Output 0 0 0 0 0 Net Total 1040 460 580 0 0 Urine Count 1 0 1 0 0 Physical Exam Pending Results No Pending Results Patient Instructions You were admitted in [facility] for physical therapy rehabilitation. Just before discharge today he had an episode of dizziness/syncope while you are in the bathroom. The episode was momentarily and he regained consciousness and were able to answer all questions immediately. Your labs are also consistent with mild SIN/dehydration and you were dry as well. On telemetry there were no significant pauses, bradycardic episodes that would warrant further intervention for now. You received fluids and after which your labs improved. After discussion with cardiology from [facility] staff your amiodarone was discontinued as you are having dizziness episodes with this. After discharge please contact your cardiology/PCP on further course regarding your atrial fibrillation. Continue your other home meds Post Discharge Care Discharge * 06/17/23 11:00:00 EDT Home Health Face to Face *Denotes mandatory az[place] *I certify that this patient is under my care and that I or an allowed non- physician working with me had a face to face encounter with the patient on this date: 06/17/2023 11:01 *The encounter with the patient was in whole, or in part, for the following medical condition, which is the primary diagnosis(es) for home health care: Syncope (R55) Atrial fibrillation (I48.91) Intractable hiccups (R06.6) *Select the indications for the discipline/s that are being arranged for this patient. Nursing (select all that apply): [_] None [y_] Medication management (reconciliation, teaching) [_] Chronic disease management [_] Wound care and treatment [_] Home safety evaluation [_] Administer SQ/IM/IV medications [_] Cath care [_] Drain care [_] Trach or GT care Other _ Occupation Therapy (select all that apply): [_] None [_] ADL Management [y_] Fall prevention training [_] Energy conservation [_] Cognitive training Other _ Physical Therapy (select all that apply): [_] None [y_] Functional mobility training [_] Home exercise program to strengthen [y_] Increase ROM [_y] Falls prevention training [_] Home maintenance program for chronic disease Other _ Speech Therapy (select all that apply): [_] None [_] Swallow evaluation and training [_] Speech and language training [_] Cognitive training to process, organize, and/or recall information Other _ *Homebound due to (select all that apply): [_] Inability to leave home without assistance/supervision [_] Inability to ambulate without assistance [_] Pain [_y] Decreased strength and endurance [_] Unsteady gait [_] Severe SOB and fatigue [_] Impaired transfers [_] Inability to negotiate stairs [_] Limited weight bearing [_] Mental status change *Physician Signature: _Kevyn gaines *By signing this, I certify that I have personally evaluated the patient and agree with the findings and recommendations as documented above. FTF Results Discharge Labs CHEM GENERAL Sodium 137 mmol/L () 06/17/2023 10:03 Potassium 4.3 mmol/L () 06/17/2023 10:03 Chloride 104 mmol/L () 06/17/2023 10:03 Bicarbonate Level 28 mmol/L () 06/17/2023 10:03 Anion Gap 5 () 06/17/2023 10:03 Glucose Level 97 mg/dL () 06/17/2023 10:03 BUN 23 mg/dL () 06/17/2023 10:03 Creatinine-Blood 1.4 mg/dL (High) 06/17/2023 10:03 Estimated GFR Creatinine 49 ML/MIN/1.73 M2 () 06/17/2023 10:03 Calcium 8.2 mg/dL (Low) 06/17/2023 10:03 HEME OTHER Hold Lavender Top SPECIMEN DISCARDED AFTER 24 HOURS. () 06/17/2023 10:03 Blood Glucose Trend Glucose Level: 97 mg/dL (06/17/23 10:03:00) _ minutes spent on discharge end of copy and paste /lalo/ RAMONA HUNTER RN,MSN,MANAGED CARE NURSE-C [facility] NURSE PRACTITIONER Signed: 06/19/2023 09:36 06/19/2023 ADDENDUM STATUS: COMPLETED CC cardiology consult placed. 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 /lalo/ RAMONA HUNTER RN,MSN,MANAGED CARE NURSE-C [facility] NURSE PRACTITIONER Signed: 06/19/2023 09:42 Receipt Acknowledged By: 06/19/2023 16:05 /allo/ JODI SUTTON, RN [facility] freelance designer 06/21/2023 ADDENDUM STATUS: COMPLETED Spoke w RN CM patient no longer has hiccups. GF asking about tapering/stopping. Plan to decrease to once daily x 3 days then stop. Will follow. /lalo/ RAMONA HUNTER RN,MSN,MANAGED CARE NURSE-C [facility] NURSE PRACTITIONER Signed: 06/21/2023 14:19 Receipt Acknowledged By: * AWAITING SIGNATURE * JODI SUTTON [place] [facility] Jun 13, 2023 08:26 AM ADMINISTRATIVE NOTE: LOCAL TITLE: ADMINISTRATIVE NOTE STANDARD TITLE: ADMINISTRATIVE NOTE DATE OF NOTE: JUN 13, 2023@08:26 ENTRY DATE: JUN 13, 2023@08:26:56 AUTHOR: KERI HUNTER EXP COSIGNER: URGENCY: STATUS: COMPLETED SUBJECT: Progress Note HospitalResult date:06/12/2023 17:09 Patient: DILIA MENDOZA Age: 88 Years Sex: Male : 1935 Subjective Patient seen and examined at bedside. present. He reports feeling tired and dizzy. Hiccups have increased once again. Review of Systems Constitutional: No weight loss, fever, chills, weakness. Does fatigue easily HEENT: No visual loss, blurred vision, double vision or yellow sclera. No hearing loss, sneezing, congestion, runny nose or sore throat. Skin: No rash or itching. Cardiovascular: No chest pain, chest pressure or chest discomfort. With the exception of the above Respiratory: No shortness of breath, cough or sputum production. Gastrointestinal: No anorexia, nausea, vomiting or diarrhea. No abdominal pain Genitourinary:No urinary frequency or incontinence. Neurologic: No headache, dizziness, syncope, ataxia, numbness or tingling in the extremities. No change in bowel or bladder control. Musculoskeletal: No muscle pain, back pain, joint pain or stiffness. Psychiatric: No depression or anxiety. Endocrine: No reports of sweating. No cold or heat intolerance. No polyuria or polydipsia. Allergies Allergies (Active and Proposed Allergies Only) Latex (Severity: Unknown severity, Onset: Unknown) Reactions: rash/hives Objective Measurements Height: 185.9 cm (06/12/23) Weight: 89.2 kg (06/06/23) Dry Weight: 89.2 kg (06/06/23) Body Mass Index: 25.81 kg/m2 High (06/06/23) Vital Signs Temperature: 97 DegF (06/12/23 07:58:00) Temperature Route: Temporal (06/12/23 07:58:00) Pulse Rate: 60 bpm (06/12/23 07:58:00) Respiratory Rate: 18 br/min (06/12/23 07:58:00) Systolic Blood Pressure: 145 mm Hg High (06/12/23 07:58:00) Diastolic Blood Pressure: 81 mm Hg (06/12/23 07:58:00) Blood pressure sites: Arm, left (06/12/23 07:58:00) Mean Arterial Pressure: 102 mm Hg (06/12/23 07:58:00) Pulse Pressure: 64 mm Hg (06/12/23 07:58:00) Oxygen Saturation: 98 % (06/12/23 07:58:00) Mode of Delivery (Oxygen): Room air (06/12/23 07:58:00) Early Warning Score: 3 (06/12/23 08:04:18) Pain Scores No qualifying data available. Intake/Output 06/05 16:54 06/11 07:00 06/10 07:00 06/09 07:00 06/08 07:00 06/11 17:09 06/11 17:09 06/11 06:59 06/10 06:59 06/09 06:59 Intake 4756 250 322 5114 711 Output 350 0 0 0 0 Net Total 4406 866 937 9588 711 Urine Count 9 0 2 2 2 Diaper Count 4 0 0 1 1 Mobility & Ambulation Level Mobility & Ambulation Level No qualifying data available. Physical Exam General: Alert, no acute distress Very [place] Mental Status: Oriented to person and place only. Normal affect. Head: Normocephalic. Eyes: Extraocular muscles grossly intact. Ear, Nose and Throat: mucous membranes moist. Ears and nose without masses, lesions or deformities. Trachea midline. Neck: Supple, Full range of motion. Respiratory: Clear to auscultation. No wheezing, rales or rhonchi. Cardiovascular: S1 S2 No thrills.No rubs or gallops. Gastrointestinal: Abdomen soft, non-tender, non-distended. Normal bowel sounds. Neurologic: Cranial nerves II-XII grossly intact. No focal neurological deficits. Moves all extremities spontaneously. Sensation intact bilaterally. Skin: No rashes or lesions. No petechiae or purpura. Erythema of the coccyx but unstageable Musculoskeletal: No cyanosis or clubbing. No gross deformities. Normal range of motion. Strength 5/5 _ Inpatient Medications Medications (13) Active SCHEDULED: (10) Amiodarone 200 mg Tablet (amiodarone 200 mg oral tablet) 200 mg, By Mouth, Daily Apixaban 2.5 mg Tablet (apixaban) 2.5 mg, By Mouth, 2 times a day Docusate Sodium 100 mg Capsule (Docusate Sodium Capsule) 100 mg 1 capsule, By Mouth, 2 times a day Gabapentin 100 mg Capsule (gabapentin 100 mg oral capsule) 100 mg, By Mouth, 2 times a day Melatonin 3 mg Tablet (melatonin 3 mg oral tablet) 3 mg, By Mouth, Daily at bedtime Multivitamin Therapeutic / Minerals Liquid (Multivit Therapeutic/Minerals Liquid) 15 mL, By Mouth, Daily Pantoprazole 40 mg EC Tablet (Protonix 40 mg oral delayed release tablet) 40 mg, By Mouth, 2 times a day Polyethylene Glycol 17 Gm Powder (Polyethylene Glycol Powder) 17 Gm 1 pack/packet, By Mouth, Daily Polyvinyl Alcohol 1.4% Opthalmic Solution/Artificial Tears (Artificial Tears1.4%) 2 drops, Eyes, Both, Every 12 hours Senna Tablet (Senna 8.6 mg oral tablet) 8.6 mg 1 tablet, By Mouth, Daily CONTINUOUS: (0) PRN: (3) Acetaminophen 325 mg Tablet (Acetaminophen Tablet) 650 mg, By Mouth, Every 4 hours Enema Mineral Oil Laxative Adult (Adult Mineral Oil Enema) 1 each, Rectally, Once Lactulose 20 Gm/30mL Syrup (lactulose 10 gm/15 ml oral syrup) 20 Gm 30 mL, By Mouth, Daily Results Recent Labs BLOOD COUNT & DIFF WBC 5.8 k/mm3 () 06/12/2023 06:48 RBC 4.21 m/mm3 (Low) 06/12/2023 06:48 Hgb 12.4 Gm/dL (Low) 06/12/2023 06:48 Hct 36.9 % (Low) 06/12/2023 06:48 MCV 87.6 femtoliters () 06/12/2023 06:48 MCH 29.5 pg () 06/12/2023 06:48 MCHC 33.6 g/dL () 06/12/2023 06:48 Platelet Count 273 k/mm3 () 06/12/2023 06:48 RDW-SD 44.4 femtoliters () 06/12/2023 06:48 MPV 10.3 femtoliters () 06/12/2023 06:48 Nucleated RBC (Automated) 0.0 #/100 WBC'S () 06/12/2023 06:48 Abs. NRBC 0.0 k/mm3 () 06/12/2023 06:48 Abs. Neut 3.8 k/mm3 () 06/12/2023 06:48 Abs. Lymph 1.3 k/mm3 () 06/12/2023 06:48 Abs. [place] 0.6 k/mm3 () 06/12/2023 06:48 Abs. Eo 0.1 k/mm3 () 06/12/2023 06:48 Abs. Baso 0.1 k/mm3 () 06/12/2023 06:48 Neut % 65.5 % () 06/12/2023 06:48 Lymph % 21.5 % () 06/12/2023 06:48 [place] % 10.3 % () 06/12/2023 06:48 Eos % 1.0 % () 06/12/2023 06:48 Baso % 1.0 % () 06/12/2023 06:48 Imm Gran 0.7 % () 06/12/2023 06:48 Abs. Imm Gran 0.0 k/mm3 () 06/12/2023 06:48 CHEM GENERAL Sodium 135 mmol/L () 06/12/2023 06:48 Potassium 4.5 mmol/L () 06/12/2023 06:48 Chloride 101 mmol/L () 06/12/2023 06:48 Bicarbonate Level 29 mmol/L () 06/12/2023 06:48 Anion Gap 5 () 06/12/2023 06:48 Glucose Level 114 mg/dL (High) 06/12/2023 06:48 BUN 19 mg/dL () 06/12/2023 06:48 Creatinine-Blood 1.5 mg/dL (High) 06/12/2023 06:48 Estimated GFR Creatinine 45 ML/MIN/1.73 M2 () 06/12/2023 06:48 Calcium 8.6 mg/dL () 06/12/2023 06:48 Coagulation Profile No qualifying data available. Assessment/Plan Atrial fibrillation (I48.91) w/ intermittent RVR Concern for Sinus Pauses CHADVASc -2 ECHO in 04/22 - unremarkable Recommendation: -s/p AMio bolus and started AMio 400mg PO BID for 1 week ( ro 06/12) followed by 200mg daily till outpatient cardiology follow up -Start Eliquis 5mg BID (06-04 -) -F/u cards on July 10 -Admitted to [facility] for participation in therapy for continued recovery efforts. 06/07 same 06/08 HR stable, continue Amiodarone at 400mg BID through 06/12, continue therapies. 06/11 HR running on low side and patient fatigued/dizzy likely secondary to Amiodarone, as per Cardiac EP note on 06/04 Amiodarone 400 mg twice daily for 7 days then 200 mg daily --> will therefore transition to 200mg daily starting tomorrow and monitor. Eliquis dose decreased to 2.5mg BID as per pharmacy recommendations based on age >80yo and renal function with creatinine 1.5. Intractable hiccups (R06.6) Resolved with neurontin. Continue and monitor 06/07 none presently. 06/08 same. 06/11 hiccups increased today, increase Gabapentin to 100mg BID. GERD (gastroesophageal reflux disease) (K21.9) Previously has tried raglan. Continue new pantoprazole 06/07 same. 06/08 same. 06/11 same. Dementia (F03.90): CT head unremarkable and labs with no acute abnormalities. Patient is currently at baseline. 06/08 stable. 06/11 no change. Coccyx: barrier cream applied, monitor. 06/08 no pressure wound appreciated on examination today, only healed skin with discoloration which it likely chronic. 06/11 same. 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) Functional Measures Comprehension Indep Measure Interim: Moderate prompting - 3 (06/12/23) Comprehension Goal Indep Measure: Moderate prompting - 3 (06/07/23) Expression Indep Measure Interim: Standby prompting - 5 (06/12/23) Expression Goal Indep Measure: Standby prompting - 5 (06/07/23) Social Interaction Indep Measure Interim: Minimal prompting - 4 (06/12/23) Social Interaction Goal Indep Measure: Minimal prompting - 4 (06/07/23) Problem Solving Indep Measure Interim: Moderate prompting - 3 (06/12/23) Problem Solving Goal Indep Measure: Moderate prompting - 3 (06/07/23) Memory Indep Measure Interim: Maximal prompting - 2 (06/12/23) Memory Goal Indep Measure: Maximal prompting - 2 (06/07/23) end of copy and paste /es/ RAMONA HUNTER RN,MSN,MANAGED CARE NURSE-C [facility] NURSE PRACTITIONER Signed: 06/13/2023 08:27 Receipt Acknowledged By: 06/13/2023 09:06 /es/ JODI SUTTON RN [facility] freelance designer NENA HUNTER [place] [facility] [facility] Jun 05, 2023 02:09 PM ADMINISTRATIVE NOTE: LOCAL TITLE: ADMINISTRATIVE NOTE STANDARD TITLE: ADMINISTRATIVE NOTE DATE OF NOTE: JUN 05, 2023@14:09 ENTRY DATE: JUN 05, 2023@14:09:55 AUTHOR: KERI HUNTER EXP COSIGNER: URGENCY: STATUS: COMPLETED SUBJECT: cardiology consult 06/05/23 Patient: DILIA MENDOZA Age: 88 Years Sex: Male : 1935 Indication for Consult [facility] -Electrophysiology Consultation Note Consult Requesting Physician: dr Denny Consulting Supervisor Electric: dr Garrison Primary AFIB History of Present Illness/Interval History This is a 88-year-old male past medical history of dementia, GERD, he Who was seen at [facility] for hiccups/diaphragmatic spasm and worsening mental status. Cardiology was consulted due to new paroxysmal A-fib with RVR. They recommended rate control strategy with intravenous metoprolol, oral diltiazem and later add digoxin however he had episodes of bradycardia episodes with pauses 3.4 seconds. For family members, decision against anticoagulation was made regarding his CVA risk. For his hiccups, he received Protonix and gabapentin with good effect. EP was consulted regarding new onset A-fib with RVR and further management Review of Systems 12 point review of symptoms as noted in the HPI and reviewed in detail with the patient; pertinent positives noted otherwise negative. Physical Exam Vitals & Measurements T: 98.6 ?F HR: 71 (Peripheral) RR: 18 BP: 146/77 SpO2: 100% HT: 185.5 cm WT: 85.3 kg BMI: 25.05 Weight lb/oz: 188 lb 1 oz Gen: well appearing, NAD HEENT: mmm, no oral exudates Neck: Normal JVD CV: rrr, no m/r/g Abd: soft, NT, ND Lungs/chest: normal breath sounds, no crackles or wheezes Extremities: no pitting edema, 2+ pulses Neuro: moving all 4 extremities spontaneously Skin: no rash Assessment/Plan 88-year-old male past medical history of dementia, GERD, he Who was seen at [facility] for hiccups/diaphragmatic spasm and worsening mental status. Cardiology was consulted due to new paroxysmal A-fib with RVR. They recommended rate control strategy with intravenous metoprolol, oral diltiazem and later add digoxin however he had episodes of bradycardia episodes with pauses 3.4 seconds. For family members, decision against anticoagulation was made regarding his CVA risk. Plan: 1. Paroxysmal atrial relation on telemetry patient had intermittent A-fib episode. Given his bradycardia with sinus pauses avoid beta-blockers or calcium channel blockers. Consider starting patient on amiodarone 400 mg twice daily for 7 days then 200 mg daily and continue. CHADS2 Vascor of 2 rec cva prophylaxis however family deferred. Consider heart monitor as outpatient. No further recommendation for EP at this moment. Thank you for allowing us to participate in the care of this patient. EP will sign off at this time. Please call if any questions/concerns or further services needed. Patient seen and discussed with Dr. Garrison. Garry Boone PA-C Cardiac Electrophysiology I personally spent a total of 65 minutes, including both [id number] and non- [id number] time on the date of the encounter, addressing the above diagnoses, and answering all questions. Available by RVX. Please note that this document was generated with the assistance of [employer] voice recognition technology, and may contain vocabulary/syntax errors. Please do not hesitate to contact me in case of any questions or concerns Allergies Latex (rash/hives) Home Medications Acetaminophen: 650, By Mouth, Every 4 hours, PRN (Pain , Mild) Digoxin: 125 mcg = 1 tablet, By Mouth, Daily Diltiazem: 90 mg, By Mouth, Every 6 hours Docusate: 100 mg, By Mouth, 2 times a day, PRN (as needed for constipation) Enoxaparin: 40 mg, Subcutaneous Infusion, Daily Gabapentin: 100 mg = 1 capsule, By Mouth, 2 times a day Gabapentin: 200 mg = 2 capsule, By Mouth, Daily at bedtime Melatonin: 3 mg, By Mouth, Daily at bedtime Metoprolol: 5 mg, IV Infusion, 4 times a day, PRN (Heart Rate) Multivitamin: By Mouth, Daily Ocular Lubricant: 1 drops, Eyes, Both, 2 times a day, PRN (for dry eyes) Pantoprazole: 40 mg, By Mouth, 2 times a day Polyethylene Glycol 3350: 17 Gm, By Mouth, Daily, PRN (Constipation) Potassium Chloride: 20 mEq, By Mouth, 2 times a day Potassium Phosphate-Sodium Phosphate: 2 pack/packet, By Mouth, Every 4 hours Senna: 8.6 mg, By Mouth, 2 times a day, PRN (as needed for constipation) Hospital Medications Medications (12) Active SCHEDULED: (4) Gabapentin 100 mg Capsule (gabapentin 100 mg oral capsule) 100 mg, By Mouth, Daily at bedtime Heparin 5000 units/mL Inj (1 mL) (Heparin Inj) 5,000 units 1 mL, Subcutaneous Injection, 3 times a day NaCl 0.9% Flush 3ml (NaCL 0.9% Flush) 3 mL, IV Push, Every 8 hours Pantoprazole 40 mg EC Tablet (pantoprazole 40 mg oral delayed release tablet) 40 mg, By Mouth, Daily CONTINUOUS: (0) PRN: (8) Dextromethorphan-Guaifenesi n 20 mg-200 mg/10 mL Liqu UD (Robitussin DM Liquid) 10 mL, By Mouth, Every 4 hours Docusate Sodium 100 mg Capsule (Docusate Sodium Capsule) 100 mg 1 capsule, By Mouth, 2 times a day Metoprolol 5 mg Inj (Metoprolol Inj) 5 mg 5 mL, IV Push Slowly, Once NaCl 0.9% Flush 3ml (NaCL 0.9% Flush) 3 mL, IV Push, Every 8 hours Polyethylene Glycol 17 Gm Powder (MiraLax Powder) 17 Gm 1 pack/packet, By Mouth, Daily Polyvinyl Alcohol 1.4% Opthalmic Solution/Artificial Tears (Artificial Tears1.4%) 2 drops, Eyes, Both, Every 4 hours Senna Tablet 8.6 mg 1 tablet, By Mouth, 2 times a day Simethicone 80 mg Chewable Tablet (Simethicone Tablet) 80 mg, Chew, 3 times a day Lab Results Cardiology Labs WBC: 6.5 k/mm3 (06/04/23) RBC: 4.53 m/mm3 Low (06/04/23) Hgb: 13.5 Gm/dL Low (06/04/23) Hct: 39.8 % Low (06/04/23) MCV: 87.9 femtoliters (06/04/23) MCH: 29.8 pg (06/04/23) MCHC: 33.9 g/dL (06/04/23) Platelet Count: 282 k/mm3 (06/04/23) RDW-SD: 44.2 femtoliters (06/04/23) Nucleated RBC (Automated): 0 #/100 WBC'S (06/04/23) Abs. Neut: 5.4 k/mm3 (05/28/23) Abs. Lymph: 1.4 k/mm3 (05/28/23) Abs. [place]: 1.2 k/mm3 (05/28/23) Abs. Eo: 0 k/mm3 (05/28/23) Abs. Baso: 0 k/mm3 (05/28/23) Neut %: 66.8 % (05/28/23) [place] %: 14.9 % High (05/28/23) Eos %: 0.1 % (05/28/23) Baso %: 0.5 % (05/28/23) Imm Gran: 0.2 % (05/28/23) Abs. Imm Gran: 0 k/mm3 (05/28/23) Sodium: 136 mmol/L (06/05/23) Potassium: 4.4 mmol/L (06/05/23) Chloride: 103 mmol/L (06/05/23) Bicarbonate Level: 26 mmol/L (06/05/23) Glucose Level: 138 mg/dL High (06/05/23) BUN: 21 mg/dL (06/05/23) Creatinine-Blood: 1.4 mg/dL High (06/05/23) Calcium: 8.7 mg/dL (06/05/23) Protein, Total: 6.5 Gm/dL (05/28/23) Albumin: 3.6 Gm/dL (05/28/23) Alkaline Phosphatase: 61 units/L (05/28/23) AST (SGOT): 14 units/L (05/28/23) ALT (SGPT): 12 units/L (05/28/23) Bilirubin, Total: 0.3 mg/dL (05/28/23) Nt-Probnp: 2489 pg/mL High (05/28/23) TSH: 4.45 uIU/mL High (05/29/23) Diagnostic Impression ECG ECG 12-Lead 21:59:05 Ventricular Rate: 155 BPM Atrial Rate: 163 BPM QRS Duration: 126 ms Q-T Interval: 304 ms QTC Calculation(Bazett): 488 ms R Parshall: -38 degrees T Parshall: 24 degrees Atrial fibrillation with rapid ventricular response Left axis deviation Right bundle branch block Abnormal ECG When compared with ECG of 02-JUN-2023 11:10, Confirmed by LASHAY CORONADO MD ([id number]) on 06/05/2023 6:58:07 AM [place]: LASHAY CORONADO MD Signed By: Cornelio Talavera DO ECG 12-Lead 21:59:05 Please click on pdf link to open report Signed By: Cornelio Talavera DO Echo Echocardiogram - Complete 08:41:10 Summary The [...] Tierney MD Problem List/Past Medical History Ongoing No qualifying data Procedure/Surgical History No qualifying data available. Social History Alcohol Use: Never. Electronic Cigarette/Vaping Electronic Cigarette Use: Never. Substance Abuse Use: Never. Tobacco Use: Never (less than 100 in lifetime). Family History No family history recorded. end of copy and paste /lalo/ RAMONA HUNTER RN,MSN,MANAGED CARE NURSE-C [facility] NURSE PRACTITIONER Signed: 06/05/2023 14:10 Receipt Acknowledged By: 06/05/2023 14:45 /es/ JODI SUTTON RN [facility] freelance designer NENA HUNTER [facility] [employer] May 29, 2023 12:02 PM ADMINISTRATIVE NOTE: LOCAL TITLE: ADMINISTRATIVE NOTE STANDARD TITLE: ADMINISTRATIVE NOTE DATE OF NOTE: MAY 29, 2023@12:02 ENTRY DATE: MAY 29, 2023@12:02:21 AUTHOR: KERI HUNTER EXP COSIGNER: URGENCY: STATUS: COMPLETED SUBJECT: Emergency Medicine NoteResult date:05/28/2023 10:42 Weakness or fatigue Patient: DILIA MENDOZA Age: 88 years Sex: Male : 1935 Associated Diagnoses: None Author: Moody Hernandez MD Basic Information Time seen: Date 05/28/2023, Immediately upon arrival. History source: Patient. Arrival mode: Ambulance. History limitation: Clinical condition. Additional information: Patient's physician(s): 88-year-old male with significant past medical history marjorie presents emergency department from home due to increasing confusion and weakness. EMS reports that he lives at home with his and daughter. They called for ambulance transport today due to worsening symptoms. Patient is alert to person and aware that he is in the hospital on arrival but is disoriented to time and recent events. Denying any complaints at this time. Tachycardic during transport.. Health Status Allergies: Allergic Reactions (Selected) Severity Not Documented Latex- Rash/hives.. Past Medical/ Family/ Social History Medical history: Per HPI. Social history: Alcohol Details: Use: Never. Substance Abuse Details: Use: Never. Tobacco Details: Use: Never (less than 100 in lifetime). Electronic Cigarette/Vaping Details: Electronic Cigarette Use: Never.. Physical Examination General: Alert. Vital Signs Tachycardic, irregular, 120s to 140s. Skin: Warm. Eye: Normal conjunctiva. Ears, nose, mouth and throat: Oral mucosa moist. Cardiovascular: Tachycardic, regular rhythm. Respiratory: Respirations are non-labored, breath sounds are equal. Gastrointestinal: Soft, Nontender, Non distended. Musculoskeletal: No swelling. Neurological: Family hard of hearing, awake and alert, no localizing neurologic motor deficits, generalized weakness. Psychiatric: Appropriate mood & affect. Medical Decision Making Differential Diagnosis: Weakness, dehydration, viral syndrome, influenza, pneumonia, urinary tract infection, electrolyte imbalance. Rationale: 8-year-old male with history of dementia presents emerged department due to weakness and increasing confusion. On arrival he is tachycardic to the 120s 140s, to 140s, A-fib on EKG without prior documentation of atrial fibrillation. Uncertain duration. Patient without specific symptoms of A-fib with RVR. Blood pressure is stable. No reports of fevers. No hypoxemia or chest pain, doubt PE. denies acute symptoms. Labs including serum electrolytes are pending. Will obtain chest x-ray to assess for evidence of CHF. Will obtain urinalysis to screen for UTI given increasing confusion. Will begin gentle volume replacement and assess heart rate response.. Electrocardiogram: EP Interp, Atrial fibrillation with rapid ventricular response with intermittent PVCs, rate of 119 bpm, left axis deviation, delayed R wave progression, ST depression less than 1 mm in the inferior lateral leads. Results review: Lab results : Results 05/28/2023 10:58 EDT Influenza A PCR NEGATIVE Influenza B PCR NEGATIVE RSV PCR NEGATIVE COVID-19 PCR Specimen Source NASAL COVID-19 PCR Result NEGATIVE Appear/Color, Urine YELLOW Clarity CLEAR Specific [place], Urine 1.020 pH, Urine 5.5 Albumin, Urine TRACE Glucose, Urine NEGATIVE Ketones, Urine NEGATIVE Bilirubin, Urine NEGATIVE Hemoglobin, Urine 1+ Nitrite, Urine NEGATIVE Leukocyte, Urine NEGATIVE Urobilinogen NORMAL mg/dL WBC's, Urine 3 /HPF RBC's, Urine 10 /HPF H Bacteria NEGATIVE HPF Renal Epith 3 /HPF Mucus SLIGHT /LPF Hold Urine Culture Testing available 48 hours from time of collection. 05/28/2023 10:56 EDT WBC 8.0 k/mm3 RBC 4.79 m/mm3 Hgb 14.4 Gm/dL Hct 41.6 % MCV 86.8 femtoliters MCH 30.1 pg MCHC 34.6 g/dL Platelet Count 190 k/mm3 Sodium 135 mmol/L Potassium 3.9 mmol/L Chloride 101 mmol/L Bicarbonate Level 25 mmol/L Anion Gap 9 Glucose Level 150 mg/dL H BUN 16 mg/dL Creatinine-Blood 1.2 mg/dL Estimated GFR Creatinine 59 ML/MIN/1.73 M2 Calcium 8.5 mg/dL L Protein, Total 6.5 Gm/dL Albumin 3.6 Gm/dL AG Ratio 1.2 Alkaline Phosphatase 61 units/L AST (SGOT) 14 units/L ALT (SGPT) 12 units/L Bilirubin, Total 0.3 mg/dL Lactate 1.9 mmol/L Nt-Probnp 2,489 pg/mL H High Sensitivity Troponin (HSTnT) 34 ng/L H TSH 3.89 uIU/mL . Radiology results: Computed tomography, reviewed radiologist's report, reveals no acute disease process. Reexamination/ Reevaluation Time: 05/28/2023 12:03:00 . Notes: Sepsis Exemptions FLUID Exemption: Despite this patient having hypotension or a lactate > 4, administration of 30 mL/Kg of IV fluid may be harmful to the patient for the following reason(s): [ ] Concern for fluid overload [ ] Congestive heart failure [ ] Renal failure [ ] Blood pressure responded to a lesser volume The patient will be given [ 10 ] mL's of IVF and monitored closely. SEPSIS Exemption: [x ] It is unlikely this patient has sepsis at the time of my evaluation. , CT head without acute pathology. Chest x-ray without evidence of infiltrate or pulmonary edema. Troponin is near prior baseline, repeat is pending. Denying chest pain or anginal equivalents. Heart rate remains in the low 110s, low-grade temp, no evidence of UTI. No leukocytosis, blood pressure remained stable, possible viral illness, doubt sepsis. Will plan to admit to the medical service for ongoing management of delirium, generalized weakness and new onset atrial fibrillation.. Impression and Plan Diagnosis New onset atrial fibrillation, delirium, weakness, microscopic hematuria Plan Condition: Stable. Disposition: Admit. Orders: Launch Orders Patient Care: Admit Request (ED Only) [facility] (Order): Reason for Admission: New onset atrial fibrillation, delirium, weakness, No Isolation, Letter Carrier Not Involved, Admit Service: Medical Adult with Telemetry, 05/28/2023 12:05 EDT RESULT: Chest 2 Views Frontal and Lat Chest 2 Views Frontal and Lat Hx of Present Illness: wekaness, confusion, hiccups.; Reason: Other:; Chest Pain; Clinical Question(s): CHF COMPARISON: 04/22/2022, 04/21/2022, 11/07/2020 FINDINGS: LINES AND TUBES: None. LUNGS AND PLEURA: Clear lungs. Normal pulmonary vascularity. No pleural effusion. No pneumothorax. HEART, MEDIASTINUM AND NORMA: Heart is normal in size. Normal mediastinal and hilar contour. BONES AND SOFT TISSUES: No acute abnormality. Multilevel degenerative changes of the spine. IMPRESSION: No acute abnormality. [id number] Ventricular Rate: 119 BPM Atrial Rate: 131 BPM QRS Duration: 134 ms Q-T Interval: 324 ms QTC Calculation(Bazett): 455 ms R Parshall: -30 degrees T Parshall: 26 degrees Atrial fibrillation with rapid ventricular response with premature ventricular or aberrantly conducted complexes Left axis deviation Right bundle branch block Abnormal ECG When compared with ECG of 30-DEC-2022 15:15, Atrial fibrillation has replaced Sinus rhythm Vent. rate has increased BY 52 BPM Questionable change in QRS axis Confirmed by VERENICE GILBERT, [facility] ([id number]) on 05/29/2023 9:32:40 AM RESULT: CT Head/Brain W/O Contrast CT Head/Brain W/O Contrast INDICATION: Hx of Present Illness: Weakness, confusion, hiccups.; Reason: Other:; AMS; Clinical Question(s): Hematoma TECHNIQUE: Noncontrast head CT using axial technique and reconstructed in axial and coronal planes. Iterative reconstruction techniques are used to optimize dose and image quality. COMPARISON: 11/07/2020. FINDINGS: Implementation Engineer view findings, lines and tubes: None. BRAIN AND EXTRA-AXIAL SPACES: No parenchymal hemorrhage, midline shift, or mass effect. Sanchez-white matter differentiation is well preserved. No acute infarct. Ventricles, sulci, and basilar cisterns are normal. Mild low-density white matter changes. No subarachnoid hemorrhage. No subdural or epidural collection. CALVARIUM, SKULL BASE, AND SOFT TISSUES: No fractures or suspicious bony lesions. The paranasal sinuses and mastoid air cells are clear. Visualized orbits and globes are intact. The extracranial soft tissues are unremarkable. IMPRESSION: No acute intracranial pathology. end of copy and paste /es/ RAMONA HUNTER RN,MSN,MANAGED CARE NURSE-C [facility] NURSE PRACTITIONER Signed: 05/29/2023 12:05 Receipt Acknowledged By: 05/29/2023 14:03 /es/ JODI SUTTON RN [facility] freelance designer [facility] May 23, 2023 03:52 PM [facility] NOTE: LOCAL TITLE: [facility] TELEPHONE NOTE STANDARD TITLE: [facility] NOTE DATE OF NOTE: MAY 23, 2023@15:52 ENTRY DATE: MAY 23, 2023@15:52:50 AUTHOR: KERI HUNTER EXP COSIGNER: URGENCY: STATUS: COMPLETED S:Called DILIA MENDOZA PHONE NUMBER [[email or web address]] - PATIENT PHONE - [phone] TelePhone visit to review imaging. Spoke w patients S.O. Lakshmi. O: LAB CHEMISTRY & HEMATOLOGY Collection DT Specimen Test Name Result Units Ref Range 05/23/2023 14:11 PLASMA PROTIME 11.8 sec 10.0 - 13.1 INR 1.0 05/23/2023 14:11 SERUM TSH 4.54 uIU/mL 0.35 - 5.00 05/23/2023 14:11 BLOOD WBC 6.36 K/cmm 4.50 - 11.00 Neut % 69.4 % 43.7 - 75.8 Lymph % 21.5 % 14.0 - 42.3 [place] % 7.4 % 5.1 - 13.7 Eos % 0.6 % 0.4 - 6.8 Baso % 0.8 % 0.1 - 2.0 Immature Gran % 0.3 % 0.0 - 0.7 Neut, Abs 4.41 K/cmm 2.20 - 7.60 Lymph, Abs 1.37 K/cmm 1.00 - 3.20 [place], Abs 0.47 K/cmm 0.30 - 1.10 Eos, Abs 0.04 K/cmm 0.03 - 0.44 Baso, Abs 0.05 K/cmm 0.01 - 0.13 Immature Gran, Ab 0.02 K/cmm 0.00 - 0.06 RBC 4.94 M/cmm 4.23 - 5.66 HGB 14.7 g/dL 12.8 - 17 HCT 42.9 % 39.2 - 50.4 MCV 86.8 fl 82 - 99 MCH 29.8 pg 26.2 - 32.6 MCHC 34.3 g/dL 30.8 - 35.1 RDW-CV 13.2 % 12.0 - 16.0 PLT 226 K/cmm 140 - 360 Thyroid Test Collection DT Spec TSH 05/23/2023 14:11 SERUM 4.54 IMAGING IMPRESSION Date Procedure CPT Status Case # 05/23/2023 ULTRASOUND THYROID [id number] Verified 229 Normal thyroid ultrasound with small subcutaneous nodule in the left neck 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 05/17/2023 NECK SOFT TISSUE [id number] Verified 406 No focal soft tissue abnormality identified with degenerative changes in the lower cervical spine, as described above. 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 Time spent: 11 min Upcoming Appointments: 10/04/2023 14:00 CWM NO AUDIO EVAL D 10/04/2023 15:30 NHM/OPTOMETRY/[place] No barriers; Patient/family understands and agrees to [...] documented in this note. /lalo/ RAMONA HUNTER RN,MSN,MANAGED CARE NURSE-C [facility] NURSE PRACTITIONER Signed: 05/23/2023 15:55 Receipt Acknowledged By: 05/23/2023 16:01 /lalo/ JODI SUTTON RN [facility] freelance designer NENA HUNTER [place] [facility]
--- OUTSIDE RECORDS SUMMARY | 2024-03-07 06:44 | XMS_ITS | Encounter Summary ---
Author Name [facility] [place] [facility] [place] Address [address] [place] [id number] Care Team Providers Care Field Observer Name Role Phone RAMONA HUNTER Primary Care [...] PART B Feb 27, 2017 PART B [id number] REJI,GUSTAVO NRY PATIENT MEDICARE (WNR) MEDICARE (M) PART B Feb 27, 2017 PART B [id number] ARONGUS,GUSTAVO NRY PATIENT MEDICARE (WNR) MEDICARE (M) PART A Feb 27, 2001 PART A [id number] ARONGUS,HE NRY PATIENT MEDICARE (WNR) MEDICARE (M) PART A Feb 27, 2001 PART A [id number] [phone] WILGUS,HE NRY PATIENT Selected Encounter This section includes the information on record at [place] for the Encounter. Date/Time Encounter Type Encounter Description Reason Provider Source Jun 27, 2023 01:39 PM Outpatient Encounter TELEPHONE TRIAGE [place] Encounter Template Text not used by [place] Plan of Treatment: Future Appointments (+ 6 months) and Future Tests (+/- 45 days) The Plan of Treatment section includes future care activities for the patient from all [place] treatmentfacilities. This section includes future appointments and future orders which are active, pending or scheduled. Future Appointments This section includes appointments that were scheduled to occur 6 months from the date of the Encounter, up to a maximum of 20 appointments. The data comes from all [place] treatment facilities. Appointment Date/Time Appointment Type Appointme nt Facility Name July 11, 2023 01:45 PM AMBULATORY - MEDICINE [facility] [place] [facility] Oct 04, 2023 02:00 PM [facility] [place] [place] [facility] Oct 04, 2023 03:00 PM [facility] - MEDICINE [facility] [place] [facility] Oct 04, 2023 03:30 PM AMBULATORY - MEDICINE [facility] [place] [facility] Oct 04, 2023 04:15 PM AMBULATORY - MEDICINE [facility] [place] [facility] Nov 28, 2023 08:00 AM AMBULATORY - MEDICINE [facility] [place] [facility] Dec 08, 2023 08:00 AM AMBULATORY - [facility]ICINE [facility] Dec 08, 2023 03:00 PM AMBULATORY - [facility]AB [facility] Social History: Smoking Status (Most current) and Tobacco Use (All prior to encounter date) This section includes the most current, and the historical, smoking and tobacco- related health factors from the [place] facility where the Encounter took place. Current Smoking Status This section includes the most current smoking, or tobacco-related health factor, from the [place] facility where the Encounter took place. Date/Time Current Smoking Status Phill Mack telly Dec 14, 2022 12:15 PM VA-TOBACCO NEVER USED [facility] Tobacco Use History This section includes a history of the smoking, or tobacco-related health factors, that were collected on or before the date of the Encounter. The data comes from the [place] facility where the Encounter took place. Date/Time Smoking Status/Tobacco Use Comment Dane mercado Jan 10, 2019 10:51 AM [place]-TO[place] NEVER USED [place] [facility] Advance Directives: All historical and current Section Date Range: From patient's date of to the date document was created. This section includes ALL of a patient's completed or amended [place] Advance and Rescinded Directives. The entries below indicate that a directive exists for the patient, but an actual copy is not included with this document. The data comes from all [place] facilities. Date Advance Directives Provider Source Aug 14, 2020 ADVANCE DIRECTIVE CRISTOPHER BENITEZ Encounter Notes: All associated encounter notes This section contains the clinical notes associated to the Encounter. Date/Time Encounter Note(s) Provider Source Jun 27, 2023 01:39 PM RN PROGRESS NOTE: [facility] TITLE: CCC: CLINICAL TRIAGE STANDARD TITLE: RN PROGRESS NOTE DATE OF NOTE: JUN 27, 2023@13:39:39 ENTRY DATE: JUN 27, 2023@13:39:39 AUTHOR: [place] JONES COSIGNER: URGENCY: STATUS: COMPLETED Patient Demographics Patient Name: DILIA MENDOZA Patient Primary [address] [address] [place] [address] Patient Primary Phone: [phone] Patient : 1935 Patient Age: 88 Current Location: [place] Call Back Number: [phone] Caller/Recipient Relation to Patient: Other If Other Describe Relation to Patient: OT Caller Name: Meredith Emergency Contact: KATHY DHALIWAL Triage Summary Nurse's Recommendation / WHEN: Now Nurse's Recommendation / WHERE: ED Other WHEN/WHERE modifier reason: Other Other - Modifiers: severity of symptoms Nursing Plan and Disposition Referred patient to higher level of care Instructed to go to Emergency Room (ER) Advised of Financial Disclaimer: Patient advised that recommendation for care provided during the call does not constitute an approval or authorization for payment by the [place] or its staff. Patient advised to report a community ED visit to the [facility] Office of Community Care at within 72 hours. Other course(s) of action Generated msg to PACT/Provider Provided guidance for worsening symptoms: *Caller/Patient* advised to call facilities [place] Clinical Contact Center or seek immediate medical attention for new or worsening symptoms Nurse Summary Nurse Summary: . BRIEN Harper calls reporting experiencing light sensitivity, dizziness with standing/movement and hypotension. BP 120/50 sitting. BP 104/50 standing today. [place] seen at [facility] and [place] for similar symptoms and syncopal episode in rehab. Advised ER NOW. ER notification # offered. Caller verbalizes understanding and agrees with plan. Txcc not used d/t severity of symptoms. . . Clinical Contact Center Codes Clinic/Location: V1 CWM PHONE [facility] RN /es/ [place] JONES VISN1 [facility] interventional tech Signed: 06/27/2023 13:39 Receipt Acknowledged By: 06/27/2023 13:51 /es/ JODI SUTTON RN [facility] gasfitter 06/27/2023 16:14 /es/ RAMONA HUNTER RN,MSN,SCOOP FILLER-C [facility] NURSE PRACTITIONER 06/28/2023 07:55 /es/ ESTEPHANIE DANIELLE [facility] Vp Sales [place] [facility]
--- OUTSIDE RECORDS SUMMARY | 2024-03-07 06:44 | XMS_ITS | Encounter Summary ---
Author Name [facility] [place] Organization [place] Address [address] [place] [id number] Care Team Providers Care Territory Sales Executive Name Role Phone RAMONA HUNTER Primary Care [...] PART B Feb 27, 2017 PART B [id number] [phone] ARONGUS,GUSTAVO NRY PATIENT MEDICARE (WNR) MEDICARE (M) PART B Feb 27, 2017 PART B [id number] ARONGUS,GUSTAVO NRY PATIENT MEDICARE (WNR) MEDICARE (M) PART A Feb 27, 2001 PART A [id number] ARONGUS,GUSTAVO NRY PATIENT MEDICARE (WNR) MEDICARE (M) PART A Feb 27, 2001 PART A [id number] WILGUS,HE NRY PATIENT Selected Encounter This section includes the information on record at [place] for the Encounter. Date/Time Encounter Type Encounter Description Reason Pro vider Source Jun 07, 2023 09:43 AM Outpatient Encounter TELEPHONE [facility] Encounter Template Text not used by [place] [...] 11, 2023 01:45 PM AMBULATORY - MEDICINE [place] [facility] Oct 04, 2023 02:00 PM AMBULATORY - REHAB MEDICIN E [place] [facility] Oct 04, 2023 03:00 PM AMBULATORY - MEDICINE [place] [facility] Oct 04, 2023 03:30 PM AMBULATORY - MEDICINE [place] [facility] Oct 04, 2023 04:15 PM AMBULATORY - MEDICINE [place] [facility] Nov 28, 2023 08:00 AM AMBULATORY - MEDICINE [place] [facility] Lab Results: +/- 30 days of [...] Range Comment May 23, 2023 02:11 PM [place] [facility] [place] [facility] THYROID T4 FREE(FT4) Specimen Type: SERUM No comment entered. Ordering Provider: Alex HUNTER Report Released Date/Time: May 11, 2023 02:45 PM Reporting Lab: [facility] [address] [address] Performing Lab: [facility] [address] [facility] [address] THYROID T4 FREE(FT4) 1.03 ng/dL 0.6-1.6 May 23, 2023 02:11 PM [facility] [place] [facility] THYROID TOTAL T3 Specimen Type: SERUM No comment entered. Ordering Provider: Alex HUNTER Report Released Date/Time: May 11, 2023 02:45 PM Reporting Lab: [facility] [place] [address] [address] Performing Lab: [place] [facility] [facility] [address] [facility] [address] THYROID TOTAL T3 75.21 ng/dL 35-193 May 23, 2023 02:11 PM [facility] TSH Specimen Type: SERUM No comment entered. Ordering Provider: Alex HUNTER Report Released Date/Time: May 11, 2023 02:45 PM Reporting Lab: [facility] [place] [address] [address] Performing Lab: [facility] [address] [address] TSH 4.54 u[IU]/mL 0.35-5.00 May 23, 2023 02:11 PM [facility] PT & INR (PROTIME) Specimen Type: PLASMA No comment entered. Ordering Provider: Alex HUNTER Report Released Date/Time: May 11, 2023 02:45 PM Reporting Lab: [facility] [place] [address] [address] Performing Lab: [facility] [address] [address] INR 1.0 PROTIME 11.8 s 10.0-13.1 May 23, 2023 02:11 PM [facility] CBC AND DIFF (AUTO) Specimen Type: BLOOD No comment entered. Ordering Provider: Alex HUNTER Report Released Date/Time: May 11, 2023 02:45 PM Reporting Lab: [facility] [address] [address] Performing Lab: [facility] [address] [address] WBC 6.36 10*3/uL 4.50-11.00 RBC 4.94 10*6/uL 4.23-5.66 HGB 14.7 g/dL 12.8-17 HCT 42.9 39.2-50.4 MCV 86.8 fL 82-99 MCHC 34.3 g/dL 30.8-35.1 PLT 226 10*3/uL 140-360 RDW-CV 13.2 12.0-16.0 [place], Abs 0.47 10*3/uL 0.30-1.10 MCH 29.8 pg 26.2-32.6 Neut % 69.4 43.7-75.8 Lymph % 21.5 14.0-42.3 [place] % 7.4 5.1-13.7 Eos % 0.6 0.4-6.8 [...] 14, 2022 12:15 PM VA-TOBACCO NEVER USED [facility] Tobacco Use History This section includes a history of the smoking, or tobacco-related health factors, that were collected on or before the date of the Encounter. The data comes from the [place] facility where the Encounter took place. Date/Time Smoking Status/Tobacco Use Comment F acility Jan 10, 2019 10:51 AM [place]-TOBACCO NEVER USED [place] [facility] Advance Directives: All historical and current [...] 2023 01:54 PM ULTRASOUND THYROID: DILIA MENDOZA [id number] -1935 M Exm Date: MAY 23, 2023@13:54 Req Phys: RAMONA HUNTER Loc: CWM/NO/HBPC/PACT 2/SNP (Req'g Img Loc: ULTRASOUND Service: Unknown (Case [id number] COMPLETE) ULTRASOUND THYROID (US Detailed) CPT:57376 Reason for Study: evalute soft mobile nodules to left thyroid area Clinical History: patient will be in [place] 05/22 so this day is preferred Report Status: Verified Date Reported: MAY 23, 2023 Date Verified: MAY 23, 2023 Can Stacker E-Sig:/ES/MORENA RUIZ JR Report: Study: Thyroid ultrasound. [...] Committee. Merle et al., Journal of the [place] [employer] 2017;14:587-595. Primary Diagnostic Code: No immediate attention required Primary Interpreting Staff: MORENA RUIZ JR, Radiologist (Can Stacker) /MORENA CAMPBELL JR [place] [facility] [place] [facility] May 17, 2023 01:14 PM NECK SOFT TISSUE: DILIA MENDOZA [id number] -1935 M Exm Date: MAY 17, 2023@13:14 Req Phys: RAMONA HUNTER Loc: CWM/NO/HBPC/PACT 2/SRN (Req'g Img Loc: [facility] 1 Service: Unknown (Case [id number] COMPLETE) NECK SOFT TISSUE (RAD Detailed) CPT:68854 Reason for Study: evaluate soft mobile nodules to left thyroid area Clinical History: Please also send to lab Report Status: Verified Date Reported: MAY 17, 2023 Date Verified: MAY 17, 2023 Can Stacker E-Sig:/ES/MORENA RUIZ JR Report: Study: AP and [...] Primary Interpreting Staff: MORENA RUIZ JR, Radiologist (Can Stacker) /MORENA CAMPBELL JR [facility] Encounter Notes: All associated encounter notes This section contains the clinical notes associated to the Encounter. Date/Time Encounter Note(s) Provider Source Jun 07, 2023 09:44 AM HB NOTE: LOCAL TITLE: HB TELEPHONE NOTE STANDARD TITLE: [facility] NOTE DATE OF NOTE: JUN 07, 2023@09:44 ENTRY DATE: JUN 07, 2023@09:44:09 AUTHOR: RAÚL SUTTON EXP COSIGNER: URGENCY: STATUS: COMPLETED Call received from significant other Lakshmi who reported was transferred back to [facility] into the Acute rehab yesterday 06/05. /lalo/ JODI SUTTON RN HBPC suction worker Signed: 06/07/2023 09:45 RAÚL SUTTON [facility]
--- OUTSIDE RECORDS SUMMARY | 2024-03-07 06:44 | XMS_ITS ---
Author Name [facility] [place] Organization [facility] Address [address] [place] [address] Care Team Providers Care Transitional Nurse Name Role Phone RAMONA HUNTER Primary Care [...] PART B Feb 27, 2017 PART B [id number] ARONGUS,HE NRY PATIENT MEDICARE (WNR) MEDICARE (M) PART B Feb 27, 2017 PART B [id number] WILGUS,HE NRY PATIENT MEDICARE (WNR) MEDICARE (M) PART A Feb 27, 2001 PART A [id number] WILGUS,HE NRY PATIENT MEDICARE (WNR) MEDICARE (M) PART A Feb 27, 2001 PART A [id number] GUSTAVO MENDOZA PATIENT Selected Encounter This section includes the information on record at [place] for the Encounter. Date/Time Encounter Type Encounter Description Reason Provider Source May 23, 2023 11:00 AM HEARING AID REPAIR/MODIFYIN G AUDIOLOGY ICD-10-CM Z46.1 Encounter for fitting and adjustment of hearing aid MOHAMUD CAICEDONISREEN Jaime Yg Encounter Template Text not used by [place] Assessments - Encounter Diagnoses This section includes the primary and secondary diagnoses documented for the Encounter. Date/Time Primary/Secondary Diagnosis Diagnosis Name Provider Source May 23, 2023 02:25 PM PRIMARY Encounter for fitting and adjustment of hearing aid JOHANNY CAICEDO [place] [facility] May 23, 2023 02:25 PM SECONDARY Sensorineural hearing loss, bilateral JOHANNY CAICEDO [place] [facility] [facility] Plan of Treatment: Future Appointments (+ 6 months) and Future Tests (+/- 45 days) The Plan of Treatment section includes future care activities for the patient from all [place] [facility]. This section includes future appointments and future orders which are active, pending or scheduled. Future Appointments This section includes appointments that were scheduled to occur 6 months from the date of the Encounter, up to a maximum of 20 appointments. The data comes from all [place] treatment facilities. Appointment Date/Time Appointment Type Appointme nt Facility Name July 11, 2023 01:45 PM AMBULATORY - MEDICINE [place] [facility] Oct 04, 2023 02:00 PM AMBULATORY - REHAB MEDICIN E [place] [facility] [place] [facility] Oct 04, 2023 03:00 PM AMBULATORY - MEDICINE [place] [facility] Oct 04, 2023 03:30 PM AMBULATORY - MEDICINE [place] [facility] Oct 04, 2023 04:15 PM AMBULATORY - MEDICINE [facility] [place] [facility] Lab Results: +/- 30 days of the encounter This section includes the Chemistry and Hematology Lab Results on record with [place] for the patient. Radiology Reports and Pathology Reports are provided separately, in subsequent sections. Lab Results This section contains the Chemistry/Hematology Results that were resulted 30 days before or 30 daysafter the date of the Encounter. Date/Time Source Result Type Result - Unit Interpretation Reference Range Comment May 23, 2023 02:11 PM [facility] [place] [facility] THYROID T4 FREE(FT4) Specimen Type: SERUM No comment entered. Ordering Provider: Alex HUNTER Report Released Date/Time: May 11, 2023 02:45 PM Reporting Lab: [facility] [place] [facility] [address] [facility] [facility] [address] Performing Lab: [facility] [place] [facility] [address] [facility] [facility] [address] THYROID T4 FREE(FT4) 1.03 ng/dL 0.6-1.6 May 23, 2023 02:11 PM [facility] [place] [facility] THYROID TOTAL T3 Specimen Type: SERUM No comment entered. Ordering Provider: Alex HUNTER Report Released Date/Time: May 11, 2023 02:45 PM Reporting Lab: [facility] [facility] [address] [facility] [address] Performing Lab: [facility] [place] [facility] [address] [facility] [address] THYROID TOTAL T3 75.21 ng/dL 35-193 May 23, 2023 02:11 PM [facility] [place] [facility] TSH Specimen Type: SERUM No comment entered. Ordering Provider: Alex HUNTER Report Released Date/Time: May 11, 2023 02:45 PM Reporting Lab: [facility] [facility] [address] [facility] [address] Performing Lab: [facility] [place] [facility] [address] [facility] [address] TSH 4.54 u[IU]/mL 0.35-5.00 May 23, 2023 02:11 PM [place] [facility] [facility] PT & INR (PROTIME) Specimen Type: PLASMA No comment entered. Ordering Provider: Alex HUNTER Report Released Date/Time: May 11, 2023 02:45 PM Reporting Lab: [facility] [facility] [address] [facility] [address] Performing Lab: [facility] [place] [facility] [address] [facility] [address] INR 1.0 PROTIME 11.8 s 10.0-13.1 May 23, 2023 02:11 PM [facility] CBC AND DIFF (AUTO) Specimen Type: BLOOD No comment entered. Ordering Provider: Alex HUNTER Report Released Date/Time: May 11, 2023 02:45 PM Reporting Lab: [facility] [address] [facility] [address] Performing Lab: [facility] [address] [facility] [facility] [address] WBC 6.36 10*3/uL 4.50-11.00 RBC 4.94 10*6/uL 4.23-5.66 HGB 14.7 g/dL 12.8-17 HCT 42.9 39.2-50.4 MCV 86.8 fL 82-99 MCHC 34.3 g/dL 30.8-35.1 PLT 226 10*3/uL 140-360 RDW-CV 13.2 12.0-16.0 [place], Abs 0.47 10*3/uL 0.30-1.10 MCH 29.8 pg 26.2-32.6 Neut % 69.4 43.7-75.8 Lymph % 21.5 14.0-42.3 [place] % 7.4 5.1-13.7 Eos % 0.6 0.4-6.8 [...] and tobacco- related health factors from the [place] facility where the Encounter took place. Current Smoking Status This section includes the most current smoking, or tobacco-related health factor, from the [place] facility where the Encounter took place. Date/Time Current Smoking Status Comment Frederick ity Dec 14, 2022 12:15 PM VA-TOBACCO NEVER USED [facility] Tobacco Use History This section includes a history of the smoking, or tobacco-related health factors, that were collected on or before the date of the Encounter. The data comes from the [place] facility where the Encounter took place. Date/Time Smoking Status/Tobacco Use Comment F acility Jan 10, 2019 10:51 AM VA-TOBACCO NEVER USED [facility] Advance Directives: All historical and current Section Date Range: From patient's date of to the date document was created. This section includes ALL of a patient's completed or amended [place] Advance and Rescinded Directives. The entries below indicate that a directive exists for the patient, but an actual copy is not included with this document. The data comes from all [place] facilities. Date Advance Directives Provider Source Aug [...] the Encounter. The data comes from all [place] treatment facilities. Date/Time Radiology Report Provider Source May 23, 2023 01:54 PM ULTRASOUND THYROID: DILIA MENDOZA BRIGID [id number] -1935 M Exm Date: MAY 23, 2023@13:54 Req Phys: RAMONA HUNTER Loc: CWM/NO/HBPC/PACT 2/SNP (Req'g Img Loc: ULTRASOUND Service: Unknown (Case [id number] COMPLETE) ULTRASOUND THYROID (US Detailed) CPT:86591 Reason for Study: evalute soft mobile nodules to left thyroid area Clinical History: patient will be in [place] 05/22 so this day is preferred Report Status: Verified Date Reported: MAY 23, 2023 Date Verified: MAY 23, 2023 Stencil Maker E-Sig:/ES/MORENA RUIZ JR Report: Study: Thyroid ultrasound. [...] Committee. Mariselsler et al., Journal of the [place] [employer] 2017;14:587-595. Primary Diagnostic Code: No immediate attention required Primary Interpreting Staff: MORENA RUIZ JR, Radiologist (Stencil Maker) /MORENA CAMPBELL JR [place] [facility] [facility] May 17, 2023 01:14 PM NECK SOFT TISSUE: DILIA MENDOZA [id number] -1935 M [facility] Date: MAY 17, 2023@13:14 Req Phys: RAMONA HUNTER Loc: CWM/NO/HBPC/PACT 2/SRN (Req'g Img Loc: [facility] 1 Service: Unknown (Case [id number] COMPLETE) NECK SOFT TISSUE (RAD Detailed) CPT:78606 Reason for Study: evaluate soft mobile nodules to left thyroid area Clinical History: Please also send to lab Report Status: Verified Date Reported: MAY 17, 2023 Date Verified: MAY 17, 2023 Stencil Maker E-Sig:/ES/MORENA RUIZ JR Report: Study: AP and [...] Primary Interpreting Staff: MORENA RUIZ JR, Radiologist (Stencil Maker) /EAD MORENA RUIZ JR [facility] Encounter Notes: All associated encounter notes This section contains the clinical notes associated to the Encounter. Date/Time Encounter Note(s) Provider Source May 23, 2023 02:22 PM AUDIOLOGY E & M NO TE: [facility] TITLE: AUDIOLOGY CLINIC STANDARD TITLE: AUDIOLOGY E & M NOTE DATE OF NOTE: MAY 23, 2023@14:22 ENTRY DATE: MAY 23, 2023@14:22:53 AUTHOR: DIPESH CAICEDO EXP COSIGNER: URGENCY: STATUS: COMPLETED Dx: Sensorineural hearing loss, bilateral Barry was seen today for a compensation and pension exam. He is currently wearing bilateral Ken [employer]ay Edge AI BTE 13 hearing aids he was issued on 08/24/20. Maintenance was performed on 's hearing aids today. All debris was removed from the microphones, and the microphone covers, slim tubes, and batteries were replaced. Listening check post maintenance was positive for both hearing aids. Barry will contact the clinic as needed. /lalo/ Yanelis Boone, [facility]-A Consultative Sales Associate Signed: 05/23/2023 14:26 DIPESH CAICEDO [facility]
--- OUTSIDE RECORDS SUMMARY | 2024-03-07 06:44 | XMS_ITS ---
Author Name [facility] [place] [facility] [place] Address [address] [place] [address] Care Team Providers Care Joint Cutter Name Role Phone SARAY GARCIA Primary Care [...] PART B Feb 27, 2017 PART B [id number] REJI,GUSTAVO NRY PATIENT MEDICARE (WNR) MEDICARE (M) PART B Feb 27, 2017 PART B [id number] REJI,GUSTAVO NRY PATIENT MEDICARE (WNR) MEDICARE (M) PART A Feb 27, 2001 PART A [id number] WILGUS,HE NRY PATIENT MEDICARE (WNR) MEDICARE (M) PART A Feb 27, 2001 PART A [id number] GUSTAVO MENDOZA PATIENT Selected Encounter This section includes the [place] on [place] at [place] for the [place]counter. Date/Time Encounter Type Encounter Description Reason Pro vider Source July 10, 2023 08:59 PM Outpatient Encounter [facility] PHYSIC EXTND(EDGER AUTOMATIC,ENVIRONMENTAL PROGRAMS SPECIALIST,PA) IHE Encounter Template Text not used by [place] [...] 11, 2023 01:45 PM AMBULATORY - [facility]IC[facility] [place] [facility] Oct 04, 2023 02:00 PM AM[place]ORY [place] [facility] [facility] Oct 04, 2023 03:00 PM [facility] - [facility] [place] [place] [facility] Oct 04, 2023 03:30 PM [facility]ORY - [facility] [place] [place] [facility] Oct 04, 2023 04:15 PM [facility] - [facility] [place] [place] [facility] Nov 28, 2023 08:00 AM [facility]ORY - [facility] [place] [facility] Dec 08, 2023 08:00 AM AMBULATORY - MEDICINE [facility] Dec 08, 2023 03:00 PM [facility] Vital Signs: All taken on the encounter date This section contains inpatient and outpatient Vital Signs collected on the date of the Encounter. Date/Time Temperature Pulse Blood Pressure Respiratory Rate SP02 Pain Height Weight Body Mass Index Source July 10, 2023 12:30 PM 96.7 64 140/70 16 99 0 [place] [facility] [facility] [place] [facility] Social History: Smoking Status (Most current) [...] 14, 2022 12:15 PM VA-TOBACCO NEVER USED [facility] Tobacco Use History This section includes a history of the smoking, or tobacco-related health factors, that were collected on or before the date of the Encounter. The data comes from the [place] facility where the Encounter took place. Date/Time Smoking Status/Tobacco Use Comment F acility Jan 10, 2019 10:51 AM VA-TOBACCO NEVER USED [facility] Advance Directives: All historical and current Section Date Range: From patient's date of to the date document was created. This section includes ALL of a patient's completed or amended [place] Advance and Rescinded Directives. The entries below [...] Encounter Note(s) Provider Source July 11, 2023 12:14 PM ADDENDUM: LOCAL TITLE: Addendum STANDARD TITLE: ADDENDUM DATE OF NOTE: JULY 11, 2023@12:14:06 ENTRY DATE: JULY 11, 2023@12:14:07 AUTHOR: BEBETO ARMSTRONG EXP COSIGNER: URGENCY: STATUS: COMPLETED IDT PLAN OF CARE REVIEWED WITH [facility] TEAM. /lalo/ Bebeto Armstrong RN [facility] hoist operator Signed: 07/11/2023 12:14 Receipt Acknowledged By: 07/11/2023 16:02 /es/ KEAGAN MARINELLI RN, BSN [facility] WATER PLANT MAINTENANCE MECHANIC 07/11/2023 14:09 /es/ FRANK PIZANO [facility] Clinical Pharmacist Practitioner 07/11/2023 12:42 /es/ Marly GRIMESN [facility] hoist operator 07/11/2023 12:21 /es/ SARAY GARCIA RN,MSN,LONG CHAIN QUILLER TENDER-C [facility] NURSE PRACTITIONER 07/13/2023 11:28 /es/ ESTEE ESCOBEDO NP [facility] Nurse Practitioner 07/11/2023 12:23 /es/ FABI BLEDSOE [facility] Irrigator Overhead 07/12/2023 08:37 /es/ Lacie Orlando [facility] Occupational Therapist 07/11/2023 12:21 /es/ DON DIAZ STAFF DIETITIAN 07/12/2023 08:15 /es/ Dianne Carrillo RN BSN [facility] WATER PLANT MAINTENANCE MECHANIC 07/12/2023 08:19 /es/ MICHEL Romero MD --- Original Document --- 07/10/23 [facility] INTERDISCIPLINARY NOTE: INTERDISCIPLINARY NOTE Allergies: LATEX GLOVE Risk Assessment Level 1 Low risk DNR: No Advanced Directive Completed: Yes Family/Community Support: Girlfrienyeimi Martins Mental Status: Dx of Alzheimer's Disease PLAN OF CARE 90 day review Dates covered by plan of care from June to Sep Primary Care Provider: Saray Garcia NP PROBLEM [...] Cataract R 18. HL - Hearing loss [place] Medications: Active [...] THREE TIMES DAILY NEEDED 13 Total Medications Gender Specific Health Assessment: BPH and Erectile dysfunction Fall Risk: [facility] 10 Fall Risk Assessment Tool Required Core Elements Assess one point for each core element yes. Information may be gathered from medical record, assessment and if applicable, the patient caregiver. Beyond protocols listed below, scoring should be based on your clinical judgment. 1-Age 65+ 1-Diagnosis (3 or more co-existing) Includes only documented medical diagnosis 1-Prior history of falls within 3 months An [...] adhere to the plan of care. Total: 6- A score of 4 or more is considered at risk for falling. Created by: [facility] Functional Limitations Use of assistive devices walker hearing loss bowel/bladder incontinence Nutritional Requirements: Diet: vat tender VISIT FREQUENCY RN 1 to 4 every [...] impairment. 4. PROBLEM ADDRESSED: A Fib GOAL: [place] will maintain his cardiac output as evidenced [...] will recognize changes that require reporting to [facility] staff patient will be safe in home with environment adjusted to accommodate decrease in cognition and/or increase in disease progression Involvement of additional [facility] team members: N.P. assess and attach specific plan SW assess and attach specific plan RD assess and attach specific plan O.T. assess and attach specific plan request pharmacy review of medications Discharge Plan when able to remain in community safely with assistance of services and or family Per [facility] Discharge Policy Comments: This is an 88 year old [employer] period of service [place], treatment and prescription copay exempt. Alert and oriented x1, forgetful with diagnosis of Alzheimer's. [place] HCP is his girlfriend Lakshmi and she also takes care of her elderly mother. has PANEL BUILDER 10 hrs./week and respite 9 hrs./week. This IDT had COMPENSATION AND PENSION EXAM and was approved for 10% related to impaired hearing. had a hospital admission on May 27 with new diagnosis of A fib in [place], transferred to [facility] days later and then sent to rehab facility. [place] was discharged home with [facility]NA services SN, PT and OT. Started on Apixaban 2.5mg twice daily, Pantoprazole 40mg twice daily and gabapentin 100mg twice daily. Sometime after discharge Caregiver reported that has had no episodes of hiccups and she inquired about decreasing and potentially stopping gabapentin as she feels this medication make sluggish which contributed to the incontinence episodes at night. EDGER AUTOMATIC gave instruction to delbert gabapentin to once daily x 3 days then stop. This IDT had a fall on 06/20, was walking to the bathroom and reports he felt like he passed out. He was found by his girlfriend mother who called Lakshmi to report ramses was in the floor. Ramses was taken to hospital by ambulance and had CT/x-rays/exam, and everything was negative. [place] did sustain a skin tear to his right hand and was treated with steri-strips and started on Cefadroxil 500mg q12h x 5days. After fall ramses was found to have changes in BP. BP 120/50 sitting and 104/50 standing. experiencing dizziness during this episodes. [place] had supervisor microbiology technologists placed and is also participating in telehealth with [facility]. Has follow up cardiology appointment on 07/10 which will be his first follow up since new diagnosis of A fib. with complicated needs and new diagnosis which required interdisciplinary team services. /lalo/ JODI SUTTON, RN [facility] hoist operator Signed: 07/10/2023 21:55 07/11/2023 ADDENDUM STATUS: COMPLETED Will continue to follow every 6-12 months for routine medical care and as needed for changes in condition. /es/ SARAY GARCIA RN,MSN,LONG CHAIN QUILLER TENDER-C [facility] NURSE PRACTITIONER Signed: 07/11/2023 12:21 07/11/2023 ADDENDUM STATUS: COMPLETED Irrigator Overhead is available for psychosocial support as needed. Annual assessment to be conducted April 2024 unless otherwise indicated. /es/ FABI BLEDSOE [facility] EMT [facility] Irrigator Overhead Signed: 07/11/2023 12:24 07/11/2023 ADDENDUM STATUS: COMPLETED Will continue to review medication regimen quarterly. /es/ FRANK PIZANO [facility] Clinical Pharmacist Practitioner Signed: 07/11/2023 14:10 07/12/2023 ADDENDUM STATUS: COMPLETED is currently followed by OT to address functional abilities and ongoing assessment of equipment and home safety needs. Once current rehab needs are addressed, [facility] Rehab will follow up with [place] at least annually and as need arises for change in function. /es/ Lacie Orlando [facility] Occupational Therapist Signed: 07/12/2023 08:39 [facility] July 10, 2023 08:59 PM [facility] NOTE: LOCAL TITLE: [facility] INTERDISCIPLINARY NOTE STANDARD TITLE: [facility] NOTE DATE OF NOTE: JULY 10, 2023@20:59 ENTRY DATE: JULY 10, 2023@20:59:24 AUTHOR: RAÚL SUTTON EXP COSIGNER: URGENCY: STATUS: COMPLETED [facility] INTERDISCIPLINARY NOTE Has ADDENDA INTERDISCIPLINARY NOTE Allergies: LATEX GLOVE Risk Assessment Level 1 Low risk DNR: No Advanced Directive Completed: Yes Family/Community Support: Girlfriend Lakshmi Mental Status: Dx of Alzheimer's Disease PLAN OF CARE 90 day review Dates covered by plan of care from June to Sep Primary Care Provider: Saray Garcia NP PROBLEM [...] Cataract R 18. HL - Hearing loss [place] Medications: Active [...] THREE TIMES DAILY NEEDED 13 Total Medications Gender Specific Health Assessment: BPH and Erectile dysfunction Fall Risk: [facility] 10 Fall Risk Assessment Tool Required Core Elements Assess one point for each core element yes. Information may be gathered from medical record, assessment and if applicable, the patient caregiver. Beyond protocols listed below, scoring should be based on your clinical judgment. 1-Age 65+ 1-Diagnosis (3 or more co-existing) Includes only documented medical diagnosis 1-Prior history of falls within 3 months An [...] adhere to the plan of care. Total: 6- A score of 4 or more is considered at risk for falling. Created by: [facility] Functional Limitations Use of assistive devices walker hearing loss bowel/bladder incontinence Nutritional Requirements: Diet: vat tender VISIT FREQUENCY RN 1 to 4 every [...] impairment. 4. PROBLEM ADDRESSED: A Fib GOAL: will maintain his cardiac output as evidenced [...] will recognize changes that require reporting to [facility] staff patient will be safe in home with environment adjusted to accommodate decrease in cognition and/or increase in disease progression Involvement of additional [facility] team members: N.P. assess and attach specific plan SW assess and attach specific plan RD assess and attach specific plan O.T. assess and attach specific plan request pharmacy review of medications Discharge Plan when able to remain in community safely with assistance of services and or family Per [facility] Discharge Policy Comments: This is an 88 year old [employer] period of service [place], treatment and prescription copay exempt. Alert and oriented x1, forgetful with diagnosis of Alzheimer's. [place] HCP is his girlfriend Lakshmi and she also takes care of her elderly mother. has PANEL BUILDER 10 hrs./week and respite 9 hrs./week. This IDT had COMPENSATION AND PENSION EXAM and was approved for 10% related to impaired hearing. [place] had a hospital admission on May 27 with new diagnosis of A fib in [place], transferred to [facility] days later and then sent to rehab facility. was discharged home with [facility] services SN, PT and OT. Started on Apixaban 2.5mg twice daily, Pantoprazole 40mg twice daily and gabapentin 100mg twice daily. Sometime after discharge Caregiver reported that has had no episodes of hiccups and she inquired about decreasing and potentially stopping gabapentin as she feels this medication make sluggish which contributed to the incontinence episodes at night. EDGER AUTOMATIC gave instruction to delbert gabapentin to once daily x 3 days then stop. This IDT had a fall on 06/20, [place] was walking to the bathroom and reports he felt like he passed out. He was found by his girlfriend mother who called Lakshmi to report ramses was in the floor. was taken to hospital by ambulance and had CT/x-rays/exam, and everything was negative. [place] did sustain a skin tear to his right hand and was treated with steri-strips and started on Cefadroxil 500mg q12h x 5days. After fall was found to have changes in BP. BP 120/50 sitting and 104/50 standing. experiencing dizziness during this episodes. [place] had supervisor microbiology technologists placed and is also participating in telehealth with [facility]. Has follow up cardiology appointment on 07/10 which will be his first follow up since new diagnosis of A fib. [place] with complicated needs and new diagnosis which required interdisciplinary team services. /es/ JODI SUTTON RN [facility] hoist operator Signed: 07/10/2023 21:55 07/11/2023 ADDENDUM STATUS: COMPLETED IDT PLAN OF CARE REVIEWED WITH [facility] TEAM. /es/ Bebeto Armstrong RN [facility] hoist operator Signed: 07/11/2023 12:14 Receipt Acknowledged By: 07/11/2023 16:02 /es/ KEAGAN MARINELLI RN, BSN [facility] WATER PLANT MAINTENANCE MECHANIC 07/11/2023 14:09 /es/ FRANK PIZANO [facility] Clinical Pharmacist Practitioner 07/11/2023 12:42 /es/ Marly Ham BSN [facility] hoist operator 07/11/2023 12:21 /es/ SARAY GARCIA RN,MSN,LONG CHAIN QUILLER TENDER-C [facility] NURSE PRACTITIONER * AWAITING SIGNATURE * ESTEE ESCOBEDO 07/11/2023 12:23 /es/ FABI BLEDSOE [facility] Irrigator Overhead 07/12/2023 08:37 /es/ Lacie Orlando [facility] Occupational Therapist 07/11/2023 12:21 /es/ DON DIAZ STAFF DIETITIAN 07/12/2023 08:15 /es/ Dianne Carrillo RN BSN [facility] WATER PLANT MAINTENANCE MECHANIC 07/12/2023 08:19 /es/ MICHEL Romero MD 07/11/2023 ADDENDUM STATUS: COMPLETED Will continue to follow every 6-12 months for routine medical care and as needed for changes in condition. /es/ SARAY GARCIA RN,MSN,LONG CHAIN QUILLER TENDER-C [facility] NURSE PRACTITIONER Signed: 07/11/2023 12:21 07/11/2023 ADDENDUM STATUS: COMPLETED Irrigator Overhead is available for psychosocial support as needed. Annual assessment to be conducted April 2024 unless otherwise indicated. /es/ ESTEPHANIE DANIELLE [facility] Irrigator Overhead Signed: 07/11/2023 12:24 07/11/2023 ADDENDUM STATUS: COMPLETED Will continue to review medication regimen quarterly. /es/ FRANK PIZANO [facility] Clinical Pharmacist Practitioner Signed: 07/11/2023 14:10 07/12/2023 ADDENDUM STATUS: COMPLETED is currently followed by OT to address functional abilities and ongoing assessment of equipment and home safety needs. Once current rehab needs are addressed, [facility] Rehab will follow up with [place] at least annually and as need arises for change in function. /es/ Lacie Orlando [facility] Occupational Therapist Signed: 07/12/2023 08:39 CRISTOBAL SUTTON [place] [facility]
--- OUTSIDE RECORDS SUMMARY | 2024-03-07 06:44 | XMS_ITS | Encounter Summary ---
Author Name Department of Vetera Affairs (ID) Organization [facility] ([facility] Address [address] [place] [id number] Care Team Providers Care Mercury Purifier Name Role Phone RAMONA HUNTER Primary Care [...] PART B Feb 27, 2017 PART B [id number] REJI,GUSTAVO NRY PATIENT MEDICARE (WNR) MEDICARE (M) PART B Feb 27, 2017 PART B [id number] REJI,GUSTAVO NRY PATIENT MEDICARE (WNR) MEDICARE (M) PART A Feb 27, 2001 PART A [id number] [phone] REJI,HE NRY PATIENT MEDICARE (WNR) MEDICARE (M) PART A Feb 27, 2001 PART A [id number] GUSTAVO MENDOZA PATIENT Selected Encounter This section includes the information on record at ID for the Encounter. Date/Time Encounter Type Encounter Description Reason Pro vider Source Jun 16, 2023 02:16 PM Outpatient Encounter ADMIN PAT ACTIVTIES (MASNONCT) IHE Encounter Template Text not used by ID Plan of Treatment: Future Appointments (+ 6 [...] 11, 2023 01:45 PM AMBULATORY - MEDICINE [facility] [place] [facility] Oct 04, 2023 02:00 PM AMBULATORY - REHAB MEDICIN E [place] [facility] Oct 04, 2023 03:00 PM AMBULATORY - MEDICINE ID C [place] [facility] Oct 04, 2023 03:30 PM AMBULATORY - MEDICINE ID C [place] [facility] Oct 04, 2023 04:15 PM AMBULATORY - MEDICINE ID C [place] [facility] Nov 28, 2023 08:00 AM AMBULATORY - MEDICINE [facility] [place] [facility] Dec 08, 2023 08:00 AM [facility]UL[facility]ORY [facility]INE [facility] Dec 08, 2023 03:00 PM [facility] Lab Results: +/- 30 days of the encounter This section includes the Chemistry and Hematology Lab Results on record with ID for the patient. Radiology Reports and Pathology Reports are provided separately, in subsequent sections. Lab Results This section contains the Chemistry/Hematology Results that were resulted 30 days before or 30 daysafter the date of the Encounter. Date/Time Source Result Type Result - Unit Interpretation Reference Range Comment May 23, 2023 02:11 PM [facility] TH[facility]ROID T4 FREE(FT4) Specimen Type: SERUM No comment entered. Ordering Provider: Alex HUNTER Report Released Date/Time: May 11, 2023 02:45 PM Reporting Lab: [facility] [place] [place] [facility] [address] [facility] [address] Performing Lab: [place] [facility] [address] [facility] [address] THYROID T4 FREE(FT4) 1.03 ng/dL 0.6-1.6 May 23, 2023 02:11 PM [facility] THYROID TOTAL T3 Specimen Type: SERUM No comment entered. Ordering Provider: Alex HUNTER Report Released Date/Time: May 11, 2023 02:45 PM Reporting Lab: [facility] [place] [facility] [address] [facility] [address] Performing Lab: [facility] [address] [facility] [address] THYROID TOTAL T3 75.21 ng/dL 35-193 May 23, 2023 02:11 PM [facility] TSH Specimen Type: SERUM No comment entered. Ordering Provider: Alex HUNTER Report Released Date/Time: May 11, 2023 02:45 PM Reporting Lab: [facility] [address] [facility] [address] Performing Lab: [facility] [address] [facility] [address] TSH 4.54 u[IU]/mL 0.35-5.00 May 23, 2023 02:11 PM [facility] PT & INR (PROTIME) Specimen Type: PLASMA No comment entered. Ordering Provider: Alex HUNTER Report Released Date/Time: May 11, 2023 02:45 PM Reporting Lab: [facility] [address] [facility] [address] Performing Lab: [facility] [address] [address] INR 1.0 PROTIME 11.8 s 10.0-13.1 May 23, 2023 02:11 PM [facility] CBC AND DIFF (AUTO) Specimen Type: BLOOD No comment entered. Ordering Provider: Alex HUNTER Report Released Date/Time: May 11, 2023 02:45 PM Reporting Lab: [facility] [address] [facility] [address] Performing Lab: [facility] [address] [facility] [address] WBC 6.36 10*3/uL 4.50-11.00 RBC 4.94 10*6/uL 4.23-5.66 HGB 14.7 g/dL 12.8-17 HCT 42.9 39.2-50.4 MCV 86.8 fL 82-99 MCHC 34.3 g/dL 30.8-35.1 PLT 226 10*3/uL 140-360 RDW-CV 13.2 12.0-16.0 [place], Abs 0.47 10*3/uL 0.30-1.10 MCH 29.8 pg 26.2-32.6 Neut % 69.4 43.7-75.8 Lymph % 21.5 14.0-42.3 [place] % 7.4 5.1-13.7 Eos % 0.6 0.4-6.8 [...] 14, 2022 12:15 PM VA-TOBACCO NEVER USED [facility] Tobacco Use History This section includes a history of the smoking, or tobacco-related health factors, that were collected on or before the date of the Encounter. The data comes from the ID facility where the Encounter took place. Date/Time Smoking Status/Tobacco Use Comment Dane mercado Jan 10, 2019 10:51 AM VA-TOBACCO NEVER USED [facility] Advance Directives: All historical and current [...] the Encounter. The data comes from all ID treatment facilities. Date/Time Radiology Report Provider Source May 23, 2023 01:54 PM ULTRASOUND THYROID: DILIA MENDOZA [id number] -1935 M Exm Date: MAY 23, 2023@13:54 Req Phys: RAMONA HUNTER Loc: CWM/NO/HBPC/PACT 2/SNP (Req'g Img Loc: ULTRASOUND Service: Unknown (Case [id number] COMPLETE) ULTRASOUND THYROID (US Detailed) CPT:50971 Reason for Study: evalute soft mobile nodules to left thyroid area Clinical History: patient will be in [place] 05/22 so this day is preferred Report Status: Verified Date Reported: MAY 23, 2023 Date Verified: MAY 23, 2023 Shift Manager E-Sig:/ES/MORENA RUIZ JR Report: Study: Thyroid ultrasound. [...] Committee. Mariselsler et al., Journal of the [employer] 2017;14:587-595. Primary Diagnostic Code: No immediate attention required Primary Interpreting Staff: MORENA RUIZ JR, Radiologist (Shift Manager) /MORENA CAMPBELL JR [facility] May 17, 2023 01:14 PM NECK SOFT TISSUE: DILIA MENDOZA [id number] -1935 M Ex Date: MAY 17, 2023@13:14 Req Phys: RAMONA HUNTER Pat Loc: CWM/NO/HBPC/PACT 2/SRN (Req'g Img Loc: [facility] 1 Service: Unknown (Case [id number] COMPLETE) NECK SOFT TISSUE (RAD Detailed) CPT:08948 Reason for Study: evaluate soft mobile nodules to left thyroid area Clinical History: Please also send to lab Report Status: Verified Date Reported: MAY 17, 2023 Date Verified: MAY 17, 2023 Shift Manager E-Sig:/ES/MORENA RUIZ JR Report: Study: AP and [...] Primary Interpreting Staff: MORENA RUIZ JR, Radiologist (Shift Manager) /MORENA CAMPBELL JR [facility] Encounter Notes: All associated encounter notes This section contains the clinical notes associated to the Encounter. Date/Time Encounter Note(s) Provider Source Jun 16, 2023 02:16 PM ADMINISTRATIVE NOT E: LOCAL TITLE: CCC: SCHEDULING ADMINISTRATION STANDARD TITLE: ADMINISTRATIVE NOTE DATE OF NOTE: JUN 16, 2023@14:16:09 ENTRY DATE: JUN 16, 2023@14:16:09 AUTHOR: GÓMEZ WOODWARD EXP COSIGNER: URGENCY: STATUS: COMPLETED CCC: SCHEDULING ADMINISTRATION Has ADDENDA Patient Demographics Patient Name: DILIA MENDOZA Patient Primary Phone: [phone] Patient Primary Address: [address] [place] [address] Patient : 1935 Patient Age: 88 Call Back Number: [phone] opt. 2 Caller/Recipient Relation to Patient: Other If Other Describe Relation to Patient: Field Administrative Assistant- [facility] Caller Name: Fadia Administrative Administrative Note Reason: Home Health / Shelter Administrative Note Comments: Fadia, an audience coordinator from [facility] called to get the date of the 's last office visit. Fadia is also looking for a call back on accepting a verbal confirmation to start orders for nursing, occupational therapy, and physical therapy. Fadia can be reached at: [phone] opt. 2 /lalo/ GÓMEZ WOODWARD Signed: 06/16/2023 14:16 Receipt Acknowledged By: 06/16/2023 15:07 /es/ JODI SUTTON RN [facility] solar energy specialist 06/16/2023 15:36 /es/ RAMONA HUNTER RN,MSN,SEALER OPERATOR-C [facility] NURSE PRACTITIONER 06/16/2023 ADDENDUM STATUS: COMPLETED Nurse called and spoke with Fadia, all needed information provided. /lalo/ JODI SUTTON RN [facility] solar energy specialist Signed: 06/16/2023 15:08 [facility]
--- OUTSIDE RECORDS SUMMARY | 2024-03-07 06:44 | XMS_ITS | Encounter Summary ---
Author Name Department of Vetera Affairs ([place]) Organization Department of Vetera Affairs [place] Address [address] [place] [id number] Care Team Providers Care Animal Ride Manager Name Role Phone RAMONA HUNTER Primary [...] PART B Feb 27, 2017 PART B [id number] REJI,GUSTAVO NRY PATIENT MEDICARE (WNR) MEDICARE (M) PART B Feb 27, 2017 PART B [id number] GUSTAVO MENDOZA NRY PATIENT MEDICARE (WNR) MEDICARE () PART A Feb 27, 2001 PART A [id number] REJI,GUSTAVO NRY PATIENT MEDICARE (WNR) MEDICARE (M) PART A Feb 27, 2001 PART A [id number] [phone] GUSTAVO MENDOZA PATIENT Selected Encounter This section includes the information on record at [place] for the Encounter. Date/Time Encounter Type Encounter Description Reason Provider Source Jun 12, 2023 04:10 PM PRO PHONE CALL 5-10 MIN TELEPHONE HBPC ICD-10-CM I48.91 Unspecified atrial fibrillation RÍOSArmandoBOBO Z,JODI Yg Encounter Template Text not used by [place] Assessments - Encounter Diagnoses This section includes the primary and secondary diagnoses documented for the Encounter. Date/Time Primary/Secondary Diagnosis Diagnosis Name Provider Source Jun 12, 2023 04:10 PM PRIMARY Unspecified atrial fibrillation DAVID AugustineJODI [facility] Plan of Treatment: Future Appointments (+ 6 months) and Future Tests (+/- 45 days) The Plan of Treatment section includes future care activities for the patient from all [place] treatmentfacilities. This section includes future appointments and future orders which are active, pending or scheduled. Future Appointments This section includes appointments that were scheduled to occur 6 months from the date of the Encounter, up to a maximum of 20 appointments. The data comes from all [place] treatment facilities. Appointment Date/Time Appointment Type Appointme nt Facility Name July 11, 2023 01:45 PM [facility] [place] [facility] Oct 04, 2023 02:00 PM AMBULATORY - REHAB MEDICIN E [place] [facility] Oct 04, 2023 03:00 PM [facility] [place] [facility] Oct 04, 2023 03:30 PM [facility] [place] [facility] Oct 04, 2023 04:15 PM [facility] [place] [facility] Nov 28, 2023 08:00 AM [facility] [place] [facility] Dec 08, 2023 08:00 AM [facility]UL[facility]ORY - MEDICINE [facility] Dec 08, 2023 03:00 PM [facility] Lab Results: +/- 30 days of the encounter This section includes the Chemistry and Hematology Lab Results on record with [place] for the patient. Radiology Reports and Pathology Reports are provided separately, in subsequent sections. Lab Results This section contains the Chemistry/Hematology Results that were resulted 30 days before or 30 daysafter the date of the Encounter. Date/Time Source Result Type Result - Unit Interpretation Reference Range Comment May 23, 2023 02:11 PM [facility] [place] [place] [facility] THYROID T4 FREE(FT4) Specimen Type: SERUM No comment entered. Ordering Provider: Alex HUNTER Report Released Date/Time: May 11, 2023 02:45 PM Reporting Lab: [place] [facility] [address] [facility] [address] Performing Lab: [place] [facility] [address] [facility] [address] THYROID T4 FREE(FT4) 1.03 ng/dL 0.6-1.6 May 23, 2023 02:11 PM [facility] [place] [facility] THYROID TOTAL T3 Specimen Type: SERUM No comment entered. Ordering Provider: Alex HUNTER Report Released Date/Time: May 11, 2023 02:45 PM Reporting Lab: [place] [facility] [address] [facility] [address] Performing Lab: [place] [facility] [address] [facility] [address] THYROID TOTAL T3 75.21 ng/dL 35-193 May 23, 2023 02:11 PM [facility] TSH Specimen Type: SERUM No comment entered. Ordering Provider: Alex HUNTER Report Released Date/Time: May 11, 2023 02:45 PM Reporting Lab: [place] [facility] [address] [facility] [address] Performing Lab: [place] [facility] [address] [facility] [address] TSH 4.54 u[IU]/mL 0.35-5.00 May 23, 2023 02:11 PM [facility] PT & INR (PROTIME) Specimen Type: PLASMA No comment entered. Ordering Provider: Alex HUNTER Report Released Date/Time: May 11, 2023 02:45 PM Reporting Lab: [place] [facility] [address] [facility] [address] Performing Lab: [facility] [address] [facility] [address] INR 1.0 PROTIME 11.8 s 10.0-13.1 May 23, 2023 02:11 PM [facility] CBC AND DIFF (AUTO) Specimen Type: BLOOD No comment entered. Ordering Provider: Alex HUNTER Report Released Date/Time: May 11, 2023 02:45 PM Reporting Lab: [facility] [address] [facility] [address] Performing Lab: [facility] [address] [facility] [address] WBC 6.36 10*3/uL 4.50-11.00 RBC 4.94 10*6/uL 4.23-5.66 HGB 14.7 g/dL 12.8-17 HCT 42.9 39.2-50.4 MCV 86.8 fL 82-99 MCHC 34.3 g/dL 30.8-35.1 PLT 226 10*3/uL 140-360 RDW-CV 13.2 12.0-16.0 [place], Abs 0.47 10*3/uL 0.30-1.10 MCH 29.8 pg 26.2-32.6 Neut % 69.4 43.7-75.8 Lymph % 21.5 14.0-42.3 [place] % 7.4 5.1-13.7 Eos % 0.6 0.4-6.8 [...] and tobacco- related health factors from the [place] facility where the Encounter took place. Current Smoking Status This section includes the most current smoking, or tobacco-related health factor, from the [place] facility where the Encounter took place. Date/Time Current Smoking Status Comment Frederick gonzalezy Dec 14, 2022 12:15 PM VA-TOBACCO NEVER USED [facility] Tobacco Use History This section includes a history of the smoking, or tobacco-related health factors, that were collected on or before the date of the Encounter. The data comes from the [place] facility where the Encounter took place. Date/Time Smoking Status/Tobacco Use Comment Dane acility Jan 10, 2019 10:51 AM VA-TOBACCO NEVER USED [facility] Advance Directives: All historical and current Section Date Range: From patient's date of to the date document was created. This section includes ALL of a patient's completed or amended VA Advance and Rescinded Directives. The entries below indicate that a directive exists for the patient, but an actual copy is not included with this document. The data comes from all [place] facilities. Date Advance Directives Provider Source Aug [...] the Encounter. The data comes from all [place] treatment facilities. Date/Time Radiology Report Provider Source May 23, 2023 01:54 PM ULTRASOUND THYROID: DILIA MENDOZA [id number] -1935 M Exm Date: MAY 23, 2023@13:54 Req Phys: RAMONA HUNTER Loc: CWM/NO/HBPC/PACT 2/SNP (Req'g Img Loc: ULTRASOUND Service: Unknown (Case [id number] COMPLETE) ULTRASOUND THYROID (US Detailed) CPT:84723 Reason for Study: evalute soft mobile nodules to left thyroid area Clinical History: patient will be in [place] 05/22 so this day is preferred Report Status: Verified Date Reported: MAY 23, 2023 Date Verified: MAY 23, 2023 Route Agent E-Sig:/ES/MORENA RUIZ JR Report: Study: Thyroid ultrasound. [...] Committee. Mariselsisadora et al., Journal of the [employer] [employer] 2017;14:587-595. Primary Diagnostic Code: No immediate attention required Primary Interpreting Staff: MORENA RUIZ JR, Radiologist (Route Agent) /MORENA CAMPBELL JR [place] [facility] May 17, 2023 01:14 PM NECK SOFT TISSUE: DILIA MENDOZA [id number] -1935 M [facility] Date: MAY 17, 2023@13:14 Req Phys: RAMONA HUNTER Loc: CWM/NO/HBPC/PACT 2/SRN (Req'g Img Loc: [facility] 1 Service: Unknown (Case [id number] COMPLETE) NECK SOFT TISSUE (RAD Detailed) CPT:30290 Reason for Study: evaluate soft mobile nodules to left thyroid area Clinical History: Please also send to lab Report Status: Verified Date Reported: MAY 17, 2023 Date Verified: MAY 17, 2023 Route Agent E-Sig:/ES/MORENA RUIZ JR Report: Study: AP and [...] Primary Interpreting Staff: MORENA RUIZ JR, Radiologist (Route Agent) /MORENA CAMPBELL JR [facility] Encounter Notes: All associated encounter notes This section contains the clinical notes associated to the Encounter. Date/Time Encounter Note(s) Provider Source Jun 12, 2023 04:23 PM [facility] NOTE: LOCAL TITLE: [facility] TELEPHONE NOTE STANDARD TITLE: [facility] NOTE DATE OF NOTE: JUN 12, 2023@16:23 ENTRY DATE: JUN 12, 2023@16:23:24 AUTHOR: RAÚL SUTTON EXP COSIGNER: URGENCY: STATUS: COMPLETED Duration of call: 8 min Follow up call to significant other as last update was that was transferred on 06/01 to rehab. Per girlfriend report has been doing well at rehab and looks like he is getting back to baseline r/t mobility. The plan being discussed is possible discharge home on 06/16 with services of PT,OT and SN at home. [place] has continued to have some episodes of incontinence therefore in preparation for discharge home nurse will add orders for briefs, wipes and gloves. Will add METAL BUILDINGS ASSEMBLER to update. /lalo/ JODI SUTTON RN [facility] production expediter Signed: 06/12/2023 16:32 Receipt Acknowledged By: 06/13/2023 08:28 /lalo/ RAMONA HUNTER RN,MSN,WATER SYSTEM OPERATOR-C [facility] NURSE PRACTITIONER RAÚL SUTTON [facility]
--- OUTSIDE RECORDS SUMMARY | 2024-03-07 06:44 | XMS_ITS | Encounter Summary ---
Author Name [facility] [place] [facility] Address [address] [place] [address] Care Team Providers Care Information Technology Technician Name Role Phone RAMONA HUNTER Primary [...] PART B Feb 27, 2017 PART B [id number] REJI,GUSTAVO NRY PATIENT MEDICARE (WNR) MEDICARE (M) PART B Feb 27, 2017 PART B [id number] [phone] REJI,GUSTAVO NRY PATIENT MEDICARE (WNR) MEDICARE (M) PART A Feb 27, 2001 PART A [id number] REJI,HE NRY PATIENT MEDICARE (WNR) MEDICARE (M) PART A Feb 27, 2001 PART A [id number] GUSTAVO MENDOZA PATIENT Selected Encounter This section includes the information on record at [place] for the Encounter. Date/Time Encounter Type Encounter Description Reason Pro vider Source May 30, 2023 10:47 AM Outpatient Encounter ADMIN PAT ACTIVTIES (MASNONCT) IHE Encounter Template Text not used by [place] Plan of Treatment: Future Appointments (+ 6 [...] 11, 2023 01:45 PM AMBULATORY - MEDICINE [place] [facility] Oct 04, 2023 02:00 PM AMBULATORY - REHAB MEDICIN E [place] [facility] Oct 04, 2023 03:00 PM AMBULATORY - MEDICINE [place] [facility] Oct 04, 2023 03:30 PM AMBULATORY - MEDICINE [place] [facility] Oct 04, 2023 04:15 PM AMBULATORY - MEDICINE [place] [facility] Nov 28, 2023 08:00 AM AMBULATORY - MEDICINE [place] [facility] Lab Results: +/- 30 days of [...] Range Comment May 23, 2023 02:11 PM [place] [facility] THYROID T4 FREE(FT4) Specimen Type: SERUM No comment entered. Ordering Provider: Alex HUNTER Report Released Date/Time: May 11, 2023 02:45 PM Reporting Lab: [facility] [place] [address] [address] Performing Lab: [facility] [place] [facility] [address] [facility] [address] THYROID T4 FREE(FT4) 1.03 ng/dL 0.6-1.6 May 23, 2023 02:[address] [address] THYROID TOTAL T3 Specimen Type: SERUM No comment entered. Ordering Provider: Alex HUNTER Report Released Date/Time: May 11, 2023 02:45 PM Reporting Lab: [facility] [place] [facility] [address] [facility] [address] Performing Lab: [place] [facility] [address] [facility] [address] THYROID TOTAL T3 75.21 ng/dL 35-193 May 23, 2023 02:11 PM [facility] TSH Specimen Type: SERUM No comment entered. Ordering Provider: Alex HUNTER Report Released Date/Time: May 11, 2023 02:45 PM Reporting Lab: [facility] [address] [facility] [address] Performing Lab: [facility] ANNISTONTRN [facility] [address] [facility] [address] TSH 4.54 u[IU]/mL 0.35-5.00 May 23, 2023 02:11 PM [facility] PT & INR (PROTIME) Specimen Type: PLASMA No comment entered. Ordering Provider: Alex HUNTER Report Released Date/Time: May 11, 2023 02:45 PM Reporting Lab: [facility] [place] [facility] [address] [facility] [address] Performing Lab: [facility] ANNISTONTRN [facility] [address] [address] INR 1.0 PROTIME 11.8 s 10.0-13.1 May 23, 2023 02:11 PM [facility] CBC AND DIFF (AUTO) Specimen Type: BLOOD No comment entered. Ordering Provider: Alex HUNTER Report Released Date/Time: May 11, 2023 02:45 PM Reporting Lab: [facility] [address] [facility] [address] Performing Lab: [facility] [address] [facility] [address] WBC 6.36 10*3/uL 4.50-11.00 RBC 4.94 10*6/uL 4.23-5.66 HGB 14.7 g/dL 12.8-17 HCT 42.9 39.2-50.4 MCV 86.8 fL 82-99 MCHC 34.3 g/dL 30.8-35.1 PLT 226 10*3/uL 140-360 RDW-CV 13.2 12.0-16.0 [place], Abs 0.47 10*3/uL 0.30-1.10 MCH 29.8 pg 26.2-32.6 Neut % 69.4 43.7-75.8 Lymph % 21.5 14.0-42.3 [place] % 7.4 5.1-13.7 Eos % 0.6 0.4-6.8 [...] 14, 2022 12:15 PM VA-TOBACCO NEVER USED [facility] Tobacco Use History This section includes a history of the smoking, or tobacco-related health factors, that were collected on or before the date of the Encounter. The data comes from the [place] facility where the Encounter took place. Date/Time Smoking Status/Tobacco Use Comment F acility Jan 10, 2019 10:51 AM [place]-TOBACCO NEVER USED [place] [facility] Advance Directives: All historical and current [...] 2023 01:54 PM ULTRASOUND THYROID: DILIA MENDOZA [id number] -1935 M Exm Date: MAY 23, 2023@13:54 Req Phys: RAMONA HUNTER Loc: CWM/NO/HBPC/PACT 2/SNP (Req'g Img Loc: ULTRASOUND Service: Unknown (Case [id number] COMPLETE) ULTRASOUND THYROID (US Detailed) CPT:12538 Reason for Study: evalute soft mobile nodules to left thyroid area Clinical History: patient will be in [place] 05/22 so this day is preferred Report Status: Verified Date Reported: MAY 23, 2023 Date Verified: MAY 23, 2023 Assistant Activities Director E-Sig:/ES/MORENA RUIZ JR Report: Study: Thyroid ultrasound. [...] Interpreting Staff: MORENA RUIZ JR, Radiologist (Assistant Activities Director) /MORENA CAMPBELL JR [place] [facility] May 17, 2023 01:14 PM NECK SOFT TISSUE: DILIA MENDOZA [id number] -1935 M Ex Date: MAY 17, 2023@13:14 Req Phys: RAMONA HUNTER Loc: CWM/NO/HBPC/PACT 2/SRN (Req'g Img Loc: [facility] 1 Service: Unknown (Case [id number] COMPLETE) NECK SOFT TISSUE (RAD Detailed) CPT:12496 Reason for Study: evaluate soft mobile nodules to left thyroid area Clinical History: Please also send to lab Report Status: Verified Date Reported: MAY 17, 2023 Date Verified: MAY 17, 2023 Assistant Activities Director E-Sig:/ES/MORENA RUIZ JR Report: Study: AP and [...] Interpreting Staff: MORENA RUIZ JR, Radiologist (Assistant Activities Director) /MORENA CAMPBELL JR [facility] Encounter Notes: All associated encounter notes This section contains the clinical notes associated to the Encounter. Date/Time Encounter Note(s) Provider Source May 30, 2023 01:11 PM ADDENDUM: LOCAL TITLE: Addendum STANDARD TITLE: ADDENDUM DATE OF NOTE: MAY 30, 2023@13:11:43 ENTRY DATE: MAY 30, 2023@13:11:44 AUTHOR: RAÚL SUTTON COSIGNER: URGENCY: STATUS: COMPLETED Called and spoke with FLORI Vega from [facility] to inform that PCP is willing to sign orders for services. Plan is to start services on 05/31 once is discharged home. [facility] fax number provided. /es/ JODI SUTTON RN [facility] meat scrubber Signed: 05/30/2023 13:13 Receipt Acknowledged By: 05/30/2023 13:22 /es/ RAMONA HUNTER RN,MSN,AUTO GARAGE ATTENDANT-C [facility] NURSE PRACTITIONER === --- Original Document --- 05/30/23 CCC: SCHEDULING ADMINISTRATION: Patient Demographics Patient Name: DILIA MENDOZA Patient Primary Phone: [phone] Patient Primary [address]: [address] [place] [address] Patient : 1935 Patient Age: 88 Caller/Recipient Relation to Patient: Caregiver Caller Name: Silvia Roberts [facility] Administrative Administrative Note Reason: Home Health / Half-Way Administrative Note Comments: FLORI Vega from [facility] is calling and wondering if the 's primary is willing to write/sign orders for the patient to receive home care services. Please return the call at: [phone] option 2 in order to discuss the details details when available. /es/ ALESSIA SALAZAR 1 [facility] AMSA Signed: 05/30/2023 10:47 Receipt Acknowledged By: 05/30/2023 13:11 /lalo/ FLORI MIDDLETON meat scrubber RAÚL SUTTON [facility] May 30, 2023 10:47 AM ADMINISTRATIVE NOTE: LOCAL TITLE: CCC: SCHEDULING ADMINISTRATION STANDARD TITLE: ADMINISTRATIVE NOTE DATE OF NOTE: MAY 30, 2023@10:47:35 ENTRY DATE: MAY 30, 2023@10:47:35 AUTHOR: ALESSIA BENOIT COSIGNER: URGENCY: STATUS: COMPLETED CCC: SCHEDULING ADMINISTRATION Has ADDENDA Patient Demographics Patient Name: DILIA MENDOZA Patient Primary Phone: [phone] Patient Primary Address: [address] [place] [address] Patient : 1935 Patient Age: 88 Caller/Recipient Relation to Patient: Caregiver [facility] Reason: Home Health / Half-Way Administrative Note Comments: FLORI Vega from [facility] is calling and wondering if the 's primary is willing to write/sign orders for the patient to receive home care services. Please return the call at: [phone] option 2 in order to discuss the details details when available. /lalo/ ALESSIA BENOIT VISN 1 [facility] AMSA Signed: 05/30/2023 10:47 Receipt Acknowledged By: 05/30/2023 13:11 /lalo/ FLORI MIDDLETON meat scrubber 05/30/2023 ADDENDUM STATUS: COMPLETED Called and spoke with FLORI Vega from [facility] to inform that PCP is willing to sign orders for services. Plan is to start services on 05/31 once is discharged home. [facility] fax number provided. /lalo/ JODI SUTTON RN [facility] meat scrubber Signed: 05/30/2023 13:13 Receipt Acknowledged By: * AWAITING SIGNATURE * RAMONA HUNTER JESSICA M [facility]
--- OUTSIDE RECORDS SUMMARY | 2024-03-07 06:44 | XMS_ITS ---
Author Name Department [place] Organization [facility] [place] Address [address] [place] [address] Care Team Providers Care Roper Operator Name Role Phone SARAY GARCIA Primary [...] PART B Feb 27, 2017 PART B [id number] ARONGUS,GUSTAVO NRY PATIENT MEDICARE (WNR) MEDICARE (M) PART B Feb 27, 2017 PART B [id number] ARONGUS,GUSTAVO NRY PATIENT MEDICARE (WNR) MEDICARE (M) PART A Feb 27, 2001 PART A [id number] [phone] ARONGUS,GSUTAVO NRY PATIENT MEDICARE (WNR) MEDICARE (M) PART A Feb 27, 2001 PART A [id number] WILGUS,HE NRY PATIENT Selected Encounter This section includes the information on record at [place] for the Encounter. Date/Time Encounter Type Encounter Description Reason Pro vider Source Jun 26, 2023 01:34 PM Outpatient Encounter [facility] Encounter Template Text not used by [...] 11, 2023 01:45 PM AMBULATORY - MEDICINE [facility] [place] [facility] Oct 04, 2023 02:00 PM AMBULATORY - REHAB MEDICIN E [place] [facility] Oct 04, 2023 03:00 PM AMBULATORY - MEDICINE [place] [facility] Oct 04, 2023 03:30 PM AMBULATORY - MEDICINE [place] C [place] [facility] Oct 04, 2023 04:15 PM AMBULATORY - MEDICINE [place] [facility] Nov 28, 2023 08:00 AM AMBULATORY - MEDICINE [facility] [place] [facility] Dec 08, 2023 08:00 AM AMBULATORY - MEDICINE [facility] Dec 08, 2023 03:00 PM [facility]BUL[facility] Vital Signs: All taken on the encounter date This section contains inpatient and outpatient Vital Signs collected on the date of the Encounter. Date/Time Temperature Pulse Blood Pressure Respiratory Rate SP02 Pain Height Weight Body Mass Index Source Jun 26, 2023 05:03 PM 98.6 77 120/80 16 99 [place] [facility] Social History: Smoking Status (Most current) [...] 14, 2022 12:15 PM VA-TOBACCO NEVER USED [facility] Tobacco Use History This section includes a history of the smoking, or tobacco-related health factors, that were collected on or before the date of the Encounter. The data comes from the [place] facility where the Encounter took place. Date/Time Smoking Status/Tobacco Use Comment Dane acility Jan 10, 2019 10:51 AM VA-TOBACCO NEVER USED [facility] Advance Directives: All historical and current Section Date Range: From patient's date of to the date document was created. This section includes ALL of a patient's completed or amended [place] Advance and Rescinded Directives. The entries below [...] Encounter Note(s) Provider Source Jun 26, 2023 01:50 PM [facility] NOTE: LOCAL TITLE: [facility] HOSPITAL NOTIFICATION STANDARD TITLE: [facility] NOTE DATE OF NOTE: JUN 26, 2023@13:50 ENTRY DATE: JUN 26, 2023@13:50:27 AUTHOR: RAÚL FONG COSIGNER: URGENCY: STATUS: COMPLETED heel breaster: Jodi Fong RN Provider: Saray Garcia NP Reason for Admission: fall Facility Admitted to: ER visit only at [facility] Date of Admission: May Date of Discharge: May Covid-19 Testing Performed: Unknown Current Status of Patient: Home [facility] providing care in the home: Yes [facility] Request for records made to Right : Comments: Records requested /lalo/ JODI FONG RN [facility] chancery clerk Signed: 06/26/2023 13:55 Receipt Acknowledged By: 06/26/2023 15:57 /es/ AYAKA NGO [facility] TECHNICAL REP 06/26/2023 15:12 /lalo/ SARAY GARCIA RN,MSN,LATEX RIBBON MACHINE OPERATOR-C [facility] NURSE PRACTITIONER 06/26/2023 16:47 /es/ Marjorie Anderson MSN,RN,[facility] TIRE BUFFER/TRAVELING COORDINATOR 06/27/2023 08:21 /lalo/ RAÚL PATTERSON [place] CN[facility] [facility] Jun 26, 2023 01:34 PM NURSING FALL RISK ASSESSMENT NOTE: LOCAL TITLE: HB POST FALL ASSESSMENT NOTE STANDARD TITLE: NURSING FALL RISK ASSESSMENT NOTE DATE OF NOTE: JUN 26, 2023@13:34 ENTRY DATE: JUN 26, 2023@13:34:41 AUTHOR: RAÚL FONG EXP COSIGNER: URGENCY: STATUS: COMPLETED HB FALL ASSESSMENT NOTE Date of Fall: 06/21/23 Time of Fall: PM Weights And Measures Sealer: Jodi Fong RN Fall was witnessed: No Description of Fall: Where: Vet home Hallway between the bathroom and bedroom How: Carmine was walking to the bathroom and reports he felt like he passed out. He was found by his girlfriend mother who called Lakshmi to report was in the floor. [place] was taken to hospital by ambulance and had CT/x-rays/exam, and everything was negative. [place] did sustain a skin tear to his right hand and was treated with steri-strips and started on Cefadroxil 500mg q12h x 5days. Injury: Yes Location: Side: Right hand skin tear Other Information Pertinent to Fall: Level of Injury: 2 = Moderate (requires sutures, ER visit, X-ray, medical intervention) Symptoms Prior to Fall: other (specific) [place] stated he felt like he passed out Assistive Device in Use at Time of Fall: none Contributing Factors at time of fall: other (specific) new diagnosis A fib Environmental Factors: none Contributing diagnosis to current fall: If fall occurred while HC/HB staff was providing direct patient care in the home, report on Joint Patient Safety Reporting Site (JPSR) found on [facility] Intranet home page. No, not applicable Is patient currently receiving PT/OT services: Yes Pt referred to PT/OT: Yes Patient Declines NO Interventions: Follow-up Medical Visit, PCP Notified, Education was provided to patient and/or family regarding risk factors and prevention of future falls. Program Follow-up: Interdisciplinary Team reviews recent falls and modifies Patient's care plan as appropriate. Rn Transport (or designee) tracks all falls, observes trends, and modifies Falls Prevention Plan as needed. Fall data is reported to [facility] Patient Supervisor [employer] on a quarterly basis. /es/ JODI FONG RN [facility] chancery clerk Signed: 06/26/2023 13:49 Receipt Acknowledged By: 06/27/2023 09:19 /es/ TAMRA CUNNINGHAM OTR/Yeni [facility] OCCUPATIONAL THERAPIST 06/26/2023 15:58 /es/ AYAKA NGO [facility] TECHNICAL REP 06/26/2023 15:12 /es/ SARAY GARCIA RN,MSN,LATEX RIBBON MACHINE OPERATOR-C [facility] NURSE PRACTITIONER 07/03/2023 09:21 /es/ LISA MORENO, PT [facility] PHYSICAL THERAPIST 06/26/2023 16:13 /es/ Lacie Orlando [facility] Occupational Therapist RA[facility]L FONG [facility]
--- OUTSIDE RECORDS SUMMARY | 2024-03-07 06:44 | XMS_ITS | Encounter Summary ---
Author Name [facility] [place] Organization [place] Address [address] [place] [address] Care Team Providers Care Jewel Hole Finish Opener Name Role Phone RAMONA HUNTER Primary Care [...] PART B Feb 27, 2017 PART B [id number] REJI,GUSTAVO NRY PATIENT MEDICARE (WNR) MEDICARE (M) PART B Feb 27, 2017 PART B [id number] GUSTAVO MENDOZA NRY PATIENT MEDICARE (WNR) MEDICARE () PART A Feb 27, 2001 PART A [id number] REJI,GUSTAVO NRY PATIENT MEDICARE (WNR) MEDICARE (M) PART A Feb 27, 2001 PART A [id number] [phone] GUSTAVO MENDOZA PATIENT Selected Encounter This section includes the information on record at [place] for the Encounter. Date/Time Encounter Type Encounter Description Reason Provider Source June 28, 2023 03:40 PM HC PRO PHONE CALL 11-20 MIN TELEPHONE [facility] ICD-10-CM I95.1 Orthostatic hypotension HERMAN ALBERTOJODI Yg Encounter Template Text not used by [place] Assessments - Encounter Diagnoses This section includes the primary and secondary diagnoses documented for the Encounter. Date/Time Primary/Secondary Diagnosis Diagnosis Name Provider Source June 28, 2023 03:40 PM PRIMARY Orthostatic hypotension [facility] Plan of Treatment: Future Appointments (+ 6 months) and Future Tests (+/- 45 days) The Plan of Treatment section includes future care activities for the patient from all [place] [facility] This section includes future appointments and future [...] 11, 2023 01:45 PM AMBULATORY - MEDICINE [facility] [place] [facility] Oct 04, 2023 02:00 PM AMBULATORY - REHAB MEDICIN E [place] [facility] Oct 04, 2023 03:00 PM AMBULATORY - MEDICINE [facility] [place] [facility] Oct 04, 2023 03:30 PM AMBULATORY - MEDICINE [facility] [facility] Oct 04, 2023 04:15 PM AMBULATORY - MEDICINE [facility] [facility] Nov 28, 2023 08:00 AM AMBULATORY - MEDICINE [facility] [place] [facility] Dec 08, 2023 08:00 AM AMBULATORY - MEDICINE [facility] Dec 08, 2023 03:00 PM AMBULATORY - REHAB MEDICIN E [place] [facility] Social History: Smoking Status (Most [...] 14, 2022 12:15 PM VA-TOBACCO NEVER USED [place] [employer] [facility] [facility] Tobacco Use History This section includes a history of the smoking, or tobacco-related health factors, that were collected on or before the date of the Encounter. The data comes from the [place] facility where the Encounter took place. Date/Time Smoking Status/Tobacco Use Comment F acility Jan 10, 2019 10:51 AM VA-TOBACCO NEVER USED [facility] [employer] [facility] Advance Directives: All historical and [...] Encounter. Date/Time Encounter Note(s) Provider Source June 28, 2023 03:40 PM [facility] NOTE: LOCAL TITLE: [facility] TELEPHONE NOTE STANDARD TITLE: [facility] NOTE DATE OF NOTE: JUNE 28, 2023@15:40 ENTRY DATE: JUNE 28, 2023@16:26:04 AUTHOR: RAÚL SUTTON COSIGNER: URGENCY: STATUS: COMPLETED Duration of call: 15 min [facility] nurse called [place] to follow up on clinical triage called date 06/26 OT Meredith calls reporting [place] experiencing light sensitivity, dizziness with standing/movement and hypotension. BP 120/50 sitting. BP 104/50 standing today. [place] seen at [facility] and [facility] for similar symptoms and syncopal episode in rehab. . Nurse spoke with [place] girlfriend Lakshmi who reported did not go to hospital because this is an ongoing issues and the hospital doesn't do anything and just send back home. [place] has Telehealth currently at home and is wearing a heart monitor. has been stable today with no complain of dizziness and vital signs are within normal per caregiver on Telehealth monitor. Nurse provided education on Postural hypotension, caregiver was educated on reminding to stand slowly and ground himself before walking. Caregiver voiced understanding but did share that due to [place] Dementia is hard to get him to do this things all the time . Fall precautions reviewed. Caregiver advised to take ER if symptoms persist or worsen, Lakshmi voiced understanding. Will follow up on Monday for visit. /lalo/ FLORI MIDDLETON rf design engineer Signed: 06/28/2023 16:37 RAÚL SUTTON [facility] [place] [facility]
--- OUTSIDE RECORDS SUMMARY | 2024-03-07 06:44 | XMS_ITS | Encounter Summary ---
Author Name [facility] [place] Organization [place] Address [address] [place] [id number] Care Team Providers Care Ct Scan Technologist Name Role Phone RAMONA HUNTER Primary Care [...] PART B Feb 27, 2017 PART B [id number] [phone] REJI,GUSTAVO NRY PATIENT MEDICARE (WNR) MEDICARE (M) PART B Feb 27, 2017 PART B [id number] GUSTAVO MENDOZA NRY PATIENT MEDICARE (WNR) MEDICARE () PART A Feb 27, 2001 PART A [id number] [phone] REJI,GUSTAVO NRY PATIENT MEDICARE (WNR) MEDICARE (M) PART A Feb 27, 2001 PART A [id number] [phone] GUSTAVO MENDOZA PATIENT Selected Encounter This section includes the information on record at [place] for the Encounter. Date/Time Encounter Type Encounter Description Reason Provider Source Jun 19, 2023 08:30 AM PRO PHONE CALL 11-20 MIN TELEPHONE [facility] ICD-10-CM I48.91 Unspecified atrial fibrillation RÍOSJOSE ALFREDO AugustineJODI Yg Encounter Template Text not used by [place] Assessments - Encounter Diagnoses This section includes the primary and secondary diagnoses documented for the Encounter. Date/Time Primary/Secondary Diagnosis Diagnosis Name Provider Source Jun 19, 2023 08:30 AM PRIMARY Unspecified atrial fibrillation RÍOSJOSE ALFREDO AugustineJODI [facility] [facility] Jun 19, 2023 08:30 AM SECONDARY Hiccough RÍOSJOSE ALFREDO Augustine,[facility] [place] [facility] Jun 19, 2023 08:30 AM SECONDARY Mild cognitive impairment of uncertain or unknown etiology [facility] [place] [facility] Plan of Treatment: Future Appointments (+ 6 months) and Future Tests (+/- 45 days) The Plan of Treatment section includes future care activities for the patient from all [place] [facility]. This section includes future appointments and future [...] 11, 2023 01:45 PM AMBULATORY - MEDICINE [facility] [place] [facility] Oct 04, 2023 02:00 PM AMBULATORY - REHAB MEDICIN [place] [facility] [place] [facility] Oct 04, 2023 03:00 PM AMBULATORY - MEDICINE [facility] [place] [facility] Oct 04, 2023 03:30 PM AMBULATORY - MEDICINE [place] [facility] [place] [facility] Oct 04, 2023 04:15 PM AMBULATORY - MEDICINE [place] [facility] [place] [facility] Nov 28, 2023 08:00 AM AMBULATORY - MEDICINE [facility] [place] [facility] Dec 08, 2023 08:00 AM AMBULATORY - MEDICINE [facility] Dec 08, 2023 03:00 PM AMBULATORY - REHAB MEDICIN E [place] [facility] [place] [facility] Lab Results: +/- 30 days of the encounter This section includes the Chemistry and Hematology Lab Results on record with [place] for the patient. Radiology Reports and Pathology Reports are provided separately, in subsequent sections. Lab Results This section contains the Chemistry/Hematology Results that were resulted 30 days before or 30 daysafter the date of the Encounter. Date/Time Source Result Type Result - Unit Interpretation Reference Range Comment May 23, 2023 02:11 PM [place] [facility] [facility] THYROID T4 FREE(FT4) Specimen Type: SERUM No comment entered. Ordering Provider: Alex HUNTER Report Released Date/Time: May 11, 2023 02:45 PM Reporting Lab: [place] [facility] [facility] [address] [facility] [address] Performing Lab: [facility] [place] [facility] [address] [facility] [address] THYROID T4 FREE(FT4) 1.03 ng/dL 0.6-1.6 May 23, 2023 02:11 PM [facility] [place] [facility] THYROID TOTAL T3 Specimen Type: SERUM No comment entered. Ordering Provider: Alex HUNTER Report Released Date/Time: May 11, 2023 02:45 PM Reporting Lab: [place] [facility] [place] [facility] [address] [facility] [address] Performing Lab: [place] [facility] [place] [facility] [address] [facility] [address] THYROID TOTAL T3 75.21 ng/dL 35-193 May 23, 2023 02:11 PM [facility] [place] [facility] TSH Specimen Type: SERUM No comment entered. Ordering Provider: Alex HUNTER Report Released Date/Time: May 11, 2023 02:45 PM Reporting Lab: [place] [facility] [place] [facility] [address] [facility] [address] Performing Lab: [facility] [place] [facility] [address] [facility] [facility] [address] TSH 4.54 u[IU]/mL 0.35-5.00 May 23, 2023 02:11 PM [facility] PT & INR (PROTIME) Specimen Type: PLASMA No comment entered. Ordering Provider: Alex HUNTER Report Released Date/Time: May 11, 2023 02:45 PM Reporting Lab: [facility] [address] [facility] [facility] [address] Performing Lab: [address] [address] INR 1.0 PROTIME 11.8 s 10.0-13.1 May 23, 2023 02:11 PM [facility] CBC AND DIFF (AUTO) Specimen Type: BLOOD No comment entered. Ordering Provider: Alex HUNTER Report Released Date/Time: May 11, 2023 02:45 PM Reporting Lab: [address] [address] Performing Lab: [address] [address] WBC 6.36 10*3/uL 4.50-11.00 RBC 4.94 10*6/uL 4.23-5.66 HGB 14.7 g/dL 12.8-17 HCT 42.9 39.2-50.4 MCV 86.8 fL 82-99 MCHC 34.3 g/dL 30.8-35.1 PLT 226 10*3/uL 140-360 RDW-CV 13.2 12.0-16.0 Winston, Abs 0.47 10*3/uL 0.30-1.10 MCH 29.8 pg 26.2-32.6 Neut % 69.4 43.7-75.8 Lymph % 21.5 14.0-42.3 Winston % 7.4 5.1-13.7 Eos % 0.6 0.4-6.8 [...] 14, 2022 12:15 PM VA-TOBACCO NEVER USED [place] [facility] [employer] [facility] Tobacco Use History This section includes a history of the smoking, or tobacco-related health factors, that were collected on or before the date of the Encounter. The data comes from the [place] facility where the Encounter took place. Date/Time Smoking Status/Tobacco Use Comment F acility Jan 10, 2019 10:51 AM VA-TOBACCO NEVER USED [place] [facility] SafeAwakeADVANCED [facility] MEXICOBaytex [facility] Advance Directives: All historical and current [...] the Encounter. The data comes from all [place] treatment facilities. Date/Time Radiology Report Provider Source May 23, 2023 01:54 PM ULTRASOUND THYROID: DILIA MENDOZA [id number] -[id number] M Exm Date: MAY 23, 2023@13:54 Req Phys: RAMONA HUNTER Maira Loc: CWM/NO/[facility]/PACT 2/SNP (Req'g Img Loc: ULTRASOUND Service: Unknown (Case [id number] COMPLETE) ULTRASOUND THYROID (US Detailed) CPT:56497 Reason for Study: evalute soft mobile nodules to left thyroid area Clinical History: patient will be in [place] 05/22 so this day is preferred Report Status: Verified Date Reported: MAY 23, 2023 Date Verified: MAY 23, 2023 Yard Labor Supervisor E-Sig:/ES/MORENA RUIZ JR Report: Study: Thyroid [...] Committee. Tessler et al., Journal of the [place] [employer] 2017;14:587-595. Primary Diagnostic Code: No immediate attention required Primary Interpreting Staff: MORENA RUIZ JR, Radiologist (Yard Labor Supervisor) /MORENA CAMPBELL JR [facility] Encounter Notes: All associated encounter notes This section contains the clinical notes associated to the Encounter. Date/Time Encounter Note(s) Provider Source Jun 19, 2023 08:[address] [facility] NOTE: LOCAL TITLE: [facility] TELEPHONE NOTE STANDARD TITLE: [facility] NOTE DATE OF NOTE: JUN 19, 2023@08:30 ENTRY DATE: JUN 19, 2023@16:11:17 AUTHOR: RAÚL SUTTON COSIGNER: URGENCY: STATUS: COMPLETED Duration of call: 15 min Nurse spoke with significant other Lakshmi who reports Carmine was discharged home with services on 06/16. Mohall is schedule to have PT, OT and skill nursing service through his private insurance. Per caregiver Lakshmi Lou is stable but still weak and having significant issues with incontinence, this is new as Mohall with independent with toileting prior to this hospitalization. Nurse will place order for incontinence pads and wipes. Mohall significant other Lakshmi is also requesting for refills on new meds Apixaban 2.5mg twice daily, Pantoprazole 40mg twice daily and gabapentin 100mg twice daily. Per caregiver report received enough Apixaban for 4 days as this medication is expensive and it would have been over $700 out of pocket cost. Nurse notified FINISH OFF OPERATOR about medication needs and reports to be added. F2F visit scheduled for 06/20 /lalo/ FLORI MIDDLETON plating technician Signed: 06/19/2023 16:23 RAÚL SUTTON ABDI [facility] Jun 19, 2023 08:[address] [facility] NOTE: LOCAL TITLE: [facility] POST DISCHARGE CONTACT STANDARD TITLE: [facility] NOTE DATE OF NOTE: JUN 19, 2023@08:30 ENTRY DATE: JUN 19, 2023@16:29 AUTHOR: RAÚL SUTTON EXP COSIGNER: URGENCY: STATUS: COMPLETED Location of Discharge: Home Contact attempt: 1st [place] identified by the following: Full Name Full Social Security Number (SSN) Contact made through telephone call Spoke with someone other than the : Spoke to: HCP Lakshmi Reason for hospitalization/Emergen cy Department/Urgent Care visit: New onset A fib /Caregiver states condition has improved. Symptoms to monitor for health maintenance: Dizziness, palpitations, weakness Confirmed the below changes to medications, equipment or supplies: was started on new meds Apixaban 2.5mg twice daily, Pantoprazole 40mg twice daily and gabapentin 100mg twice daily. Medications, equipment or supplies were obtained/purchased. Primary Diagnosis at Discharge: Other Diagnosis: A fib Follow up Service Referrals: Other: FINISH OFF OPERATOR adding CC Cardiology consult Future Appointments: F2F visit with [facility] nurse scheduled for 06/20 Education Provided: Medications reviewed and s/s to report reviewed. caregiver voiced understanding. Length of time spent: 15 minutes /lalo/ FLORI MIDDLETON plating technician Signed: 06/19/2023 16:36 RAÚL SUTTON [facility]
--- OUTSIDE RECORDS SUMMARY | 2024-03-07 06:44 | XMS_ITS | Encounter Summary ---
Author Name [facility] [place] Organization [place] Address [address] [place] [address] Care Team Providers Care Powerhouse Operator Name Role Phone SARAY GARCIA Primary [...] PART B Feb 27, 2017 PART B [id number] ARONGUS,HE NRY PATIENT MEDICARE (WNR) MEDICARE (M) PART B Feb 27, 2017 PART B [id number] [phone] WILGUS,HE NRY PATIENT MEDICARE (WNR) MEDICARE (M) PART A Feb 27, 2001 PART A [id number] WILGUS,HE NRY PATIENT MEDICARE (WNR) MEDICARE (M) PART A Feb 27, 2001 PART A [id number] [phone] WILGUS,HE NRY PATIENT Selected Encounter This section includes the information on record at [place] for the Encounter. Date/Time Encounter Type Encounter Description Reason Provider Source July 05, 2023 03:04 PM MTMS BY MARGIE BARR 15 MIN TELEPHONE/MONIQUE SUNG ICD-10-CM Z79.01 nursing home (current) use of anticoagulants RUTHY WEBSTER [facility] Encounter Template Text not used by [place] Assessments - Encounter Diagnoses This section includes the primary and secondary diagnoses documented for the Encounter. Date/Time Primary/Secondary Diagnosis Diagnosis Name Provider Source July 05, 2023 03:04 PM PRIMARY nursing home (current) use of anticoagulants RUTHY WEBSTER July 05, 2023 03:04 PM SECONDARY Unspecified atrial fibrillation RUTHY WEBSTER Plan of Treatment: Future Appointments (+ 6 months) and Future Tests (+/- 45 days) The Plan of Treatment section includes future care activities for the patient from all [place] [facility]. This section includes future appointments [...] 11, 2023 01:45 PM AMBULATORY - MEDICINE [facility] [place] [facility] Oct 04, 2023 02:00 PM AMBULATORY - [facility] Oct 04, 2023 03:00 PM AMBULATORY - MEDICINE [facility] [place] [facility] Oct 04, 2023 03:30 PM AMBULATORY - MEDICINE [facility] [place] [facility] Oct 04, 2023 04:15 PM AMBULATORY - MEDICINE [facility] [place] [facility] Nov 28, 2023 08:00 AM AMBULATORY - MEDICINE [facility] [place] [facility] Dec 08, 2023 08:00 AM AMBULATORY - MEDICINE [facility] Dec 08, 2023 03:00 PM [facility] Social History: Smoking Status (Most current) [...] Date/Time Current Smoking Status Comment Frederick ity Sep 20, 2021 10:00 AM VA-TOBACCO NEVER USED [facility] Tobacco Use History This section includes a history of the smoking, or tobacco-related health factors, that were collected on or before the date of the Encounter. The data comes from the [place] facility where the Encounter took place. Date/Time Smoking Status/Tobacco Use Comment F acility Mar 17, 2020 01:00 PM VA-TOBACCO NEVER USED [place] Feb 05, 2018 01:35 PM VA-TOBACCO NEVER USED [facility] Mar 07, 2016 01:03 PM LIFETIME NON-TOBACCO USER [facility] Feb 04, 2015 09:46 AM LIFETIME NON-TOBACCO USER [facility] Advance Directives: All historical and current Section Date Range: From patient's date of to the date document was created. This section includes ALL of a patient's completed or amended [place] Advance and Rescinded Directives. The entries below [...] Encounter. Date/Time Encounter Note(s) Provider Source July 05, 2023 03:04 PM PHARMACY MEDICATIO N MGT NOTE: LOCAL TITLE: PHARMACY ANTICOAGULATION NOTE STANDARD TITLE: PHARMACY MEDICATION MGT NOTE DATE OF NOTE: JULY 05, 2023@15:04 ENTRY DATE: JULY 05, 2023@15:04:25 AUTHOR: RUTHY WEBSTER COSIGNER: URGENCY: STATUS: COMPLETED Follow-up: Anticoagulation DOAC Agent Progress Note Reason for visit: 4 week f/u for Apixaban/Eliquis Indication: atrial fibrillation Start Date: Pre-consult, ~06/05/23 Expected Duration: Indefinite Referring Provider: Saray Garcia Patient Contact: ANDREA Martins: [phone] Patient has given permission to leave anticoagulation message on answering machine or with person listed. Subjective: Patient's reports that the patient did have to go to the ER s/p fall on 06/21/23. He is having significant orthostasis. He stoped amiodarone on 06/15/23 and the providers are not sure if the orthostatis is related to this medication or the apixaban. The patient also stopped gabapentin about 2 weeks ago. She offers no additional questions or complaints. Missed Doses: No Last Refill: Suspended for 07/09/23 Refill Needed: No Administration Time: 7am and 7pm Bleeding: No Dizziness/Vision Changes/Extremity Weakness: Yes stopped amiodarone around 06/15/23 - told dizziness may be from amiodarone but it is being worked up Med Changes: Yes stopped gabapentin Alcohol: No Storage of Medication: Appropriate Surgeries/Procedures: Yes having lazer eye surgery at the end of July - she ws told that the patient did not have to hold any apixaban for this procedure Objective: Labs: CBC (last 90 days): CBC Collection DT Specimen Test Name Result Units Ref Range 05/23/2023 14:11 BLOOD WBC 6.36 K/cmm 4.50 - 11.00 05/23/2023 14:11 BLOOD RBC 4.94 M/cmm 4.23 - 5.66 05/23/2023 14:11 BLOOD HGB 14.7 g/dL 12.8 - 17 05/23/2023 14:11 BLOOD HCT 42.9 % 39.2 - 50.4 05/23/2023 14:11 BLOOD MCV 86.8 fl 82 - 99 05/23/2023 14:11 BLOOD MCHC 34.3 g/dL 30.8 - 35.1 05/23/2023 14:11 BLOOD PLT 226 K/cmm 140 - 360 05/23/2023 14:11 BLOOD RDW-CV 13.2 % 12.0 - 16.0 05/23/2023 14:11 BLOOD Neut % 69.4 % 43.7 - 75.8 05/23/2023 14:11 BLOOD Lymph % 21.5 % 14.0 - 42.3 05/23/2023 14:11 BLOOD [place] % 7.4 % 5.1 - 13.7 05/23/2023 14:11 BLOOD Eos % 0.6 % 0.4 - 6.8 05/23/2023 14:11 BLOOD Baso % 0.8 % 0.1 - 2.0 SrCr (last 6 weeks): CREATININE-EGFR - NONE FOUND CRCL IBW: CrCl(est): 49.2 mL/min (Creat:1.16 03/20/23) CRCL ACT: No Creat CRCL ADJ: 49.2 mL/min (03/20/23) Vitals: Weight (BMI): 188.9 lb [85.68 kg] (04/28/2023 13:30) Height: 72 in [182.9 cm] (08/14/2020 10:08) BMI: 25.7 Active Outpatient Medications (including Supplies): APIXABAN 2.5MG TAB TAKE ONE TABLET BY MOUTH EVERY 12 HOURS ACTIVE FOR PREVENTION OF BLOOD CLOTS BRIEF,PROTECTIVE SUPER ABS LG ATTENDS USE 1 BRIEF ACTIVE DIRECTED ONCE DAILY NEEDED FOR PERSONAL CARE CARBAMIDE PEROXIDE 6.5% OTIC SOLN INSTILL 5 DROPS INTO THE ACTIVE AFFECTED EAR(S) TWICE DAILY FOR EAR WAX BLOCKAGE CARBOXYMETHYLCELLULOSE NA 0.5% OPH SOLN INSTILL 1 DROP ACTIVE INTO EACH EYE FOUR TIMES DAILY NEEDED FOR DRY EYE CLEANSING CLOTH ATTENDS PKT USE ONE WASHCLOTH DIRECTED ACTIVE ONCE DAILY NEEDED DICLOFENAC NA 1% TOP GEL APPLY 2 GRAMS TOPICALLY FOUR ACTIVE TIMES DAILY NEEDED FOR OSTEOARTHRITIS - USE DOSING CARD PROVIDED IN BOX GLOVE NITRILE MED PFREE NSTERILE TX USE GLOVE(S) ONCE ACTIVE DAILY NEEDED NUTRITION SUPL ENSURE PLUS/SHIVA LIQUID DRINK 1 CAN BY PENDING MOUTH ONCE DAILY PANTOPRAZOLE NA 40MG EC TAB TAKE [...] 100MG BY MOUTH ONCE DAILY ACTIVE NEEDED Non-VA METOCLOPRAMIDE HCL 10MG TAB 10MG BY MOUTH THREE ACTIVE TIMES DAILY NEEDED Interacting Meds with Apixaban: topical diclofenac - will continue to monitor for bruising/bleeding. Assessment/Plan: - Pt taking medication appropriately - Continue : Apixaban 2.5mg twice daily Time Spent: 15 min. Next Appt: N/A - discharge to passive monitoring Next PCP Appt: not scheduled - has [facility] PACT EDUCATION Provided with verbal instructions: Yes Provided with written instructions: No Barriers to learning: No Readiness to learn: Yes Specific dose directions reviewed: Yes Opportunity for questions/discussion: Yes Reports understanding of instructions: Yes Further learning needs: No PBM PharmD Pharmacotherapy Rem V12: PHARMACIST INTERVENTIONS: ANTICOAGULATION THERAPY DIRECT ORAL ANTICOAGULANT (DOAC) MANAGEMENT Medication monitoring, no dosage change required, continue to monitor and assess Refer or transition back to provider from Clinical Pharmacist Practitioner clinic /lalo/ Ruthy Webster PharmD,[facility] Clinical Pharmacy Practitioner Signed: 07/05/2023 15:19 Receipt Acknowledged By: 07/05/2023 15:25 /lalo/ YOSELIN NICHOLAS Clinical Picker And Sorter Load And Unload RUTHY WEBSTER
--- OUTSIDE RECORDS SUMMARY | 2024-03-07 06:44 | XMS_ITS ---
Author Name [facility] [place] Organization [place] Address [address] [place] [id number] Care Team Providers Care Proc Tech Name Role Phone RAMONA HUNTER Primary Care [...] PART B Feb 27, 2017 PART B [id number] ARONGUS,GUSTAVO NRY PATIENT MEDICARE (WNR) MEDICARE (M) PART B Feb 27, 2017 PART B [id number] ARONGUS,GUSTAVO NRY PATIENT MEDICARE (WNR) MEDICARE (M) PART A Feb 27, 2001 PART A [id number] WILGUS,GUSTAVO NRY PATIENT MEDICARE (WNR) MEDICARE (M) PART A Feb 27, 2001 PART A [id number] [phone] WILGUS,HE NRY PATIENT Selected Encounter This section includes the information on record at [place] for the Encounter. Date/Time Encounter Type Encounter Description Reason Pro vider Source Jun 05, 2023 10:10 AM Outpatient Encounter COMMUNITY CARE CONSULT IHE [...] - MEDICINE [place] [facility] [facility] [facility] Oct 04, 2023 02:00 PM AMBULATORY - REHAB MEDICIN E [place] [facility] [facility] Oct 04, 2023 03:00 PM AMBULATORY - MEDICINE [place] [facility] Oct 04, 2023 03:30 PM AMBULATORY - MEDICINE [place] [facility] [place] [facility] Oct 04, 2023 04:15 PM AMBULATORY - MEDICINE [place] [facility] [facility] Nov 28, 2023 08:00 AM AMBULATORY - MEDICINE [place] [facility] [place] [facility] Lab Results: +/- 30 [...] 2023 02:11 PM [place] [facility] [facility] THYROID T4 FREE(FT4) Specimen Type: SERUM No comment entered. Ordering Provider: Alex HUNTER Report Released Date/Time: May 11, 2023 02:45 PM Reporting Lab: [place] [facility] [address] [facility] [address] Performing Lab: [facility] [address] [facility] [address] THYROID T4 FREE(FT4) 1.03 ng/dL 0.6-1.6 May 23, 2023 02:11 PM [facility] [place] [facility] THYROID TOTAL T3 Specimen Type: SERUM No comment entered. Ordering Provider: Alex HUNTER Report Released Date/Time: May 11, 2023 02:45 PM Reporting Lab: [facility] [place] [address] [address] Performing Lab: [place] [facility] [address] [facility] [address] THYROID TOTAL T3 75.21 ng/dL 35-193 May 23, 2023 02:11 PM [facility] TSH Specimen Type: SERUM No comment entered. Ordering Provider: Alex HUNTER Report Released Date/Time: May 11, 2023 02:45 PM Reporting Lab: [facility] [place] [address] [address] Performing Lab: [facility] [address] [address] TSH 4.54 u[IU]/mL 0.35-5.00 May 23, 2023 02:11 PM [facility] PT & INR (PROTIME) Specimen Type: PLASMA No comment entered. Ordering Provider: Alex HUNTER Report Released Date/Time: May 11, 2023 02:45 PM Reporting Lab: [facility] [place] [address] [address] Performing Lab: [facility] [address] [address] INR 1.0 PROTIME 11.8 s 10.0-13.1 May 23, 2023 02:11 PM [facility] CBC AND DIFF (AUTO) Specimen Type: BLOOD No comment entered. Ordering Provider: Alex HUNTER Report Released Date/Time: May 11, 2023 02:45 PM Reporting Lab: [facility] [address] [facility] [address] Performing Lab: [facility] [address] [facility] [address] WBC 6.36 10*3/uL 4.50-11.00 RBC 4.94 10*6/uL 4.23-5.66 HGB 14.7 g/dL 12.8-17 HCT 42.9 39.2-50.4 MCV 86.8 fL 82-99 MCHC 34.3 g/dL 30.8-35.1 PLT 226 10*3/uL 140-360 RDW-CV 13.2 12.0-16.0 Lagrange, Abs 0.47 10*3/uL 0.30-1.10 MCH 29.8 pg 26.2-32.6 Neut % 69.4 43.7-75.8 Lymph % 21.5 14.0-42.3 Lag[place] % 7.4 5.1-13.7 Eos % 0.6 0.4-6.8 [...] 14, 2022 12:15 PM VA-TOBACCO NEVER USED [facility] Tobacco Use History This section includes a history of the smoking, or tobacco-related health factors, that were collected on or before the date of the Encounter. The data comes from the [place] facility where the Encounter took place. Date/Time Smoking Status/Tobacco Use Comment F acility Jan 10, 2019 10:51 AM [place]-TOBACCO NEVER USED [place] [facility] [place] [facility] Advance Directives: All historical and [...] 2023 01:54 PM ULTRASOUND THYROID: DILIA MENDOZA [id number] -1935 M Exm Date: MAY 23, 2023@13:54 Req Phys: RAMONA HUNTER Loc: CWM/NO/HBPC/PACT 2/SNP (Req'g Img Loc: ULTRASOUND Service: Unknown (Case [id number] COMPLETE) ULTRASOUND THYROID (US Detailed) CPT:53625 Reason for Study: evalute soft mobile nodules to left thyroid area Clinical History: patient will be in [place] 05/22 so this day is preferred Report Status: Verified Date Reported: MAY 23, 2023 Date Verified: MAY 23, 2023 Sales Agent [employer] E-Sig:/ES/MORENA RUIZ JR Report: Study: Thyroid ultrasound. [...] Committee. Merle et al., Journal of the [place] [employer] 2017;14:587-595. Primary Diagnostic Code: No immediate attention required Primary Interpreting Staff: MORENA RUIZ JR, Radiologist (Sales Agent [employer] Stamps) /MORENA CAMPBELL JR [place] [facility] [facility] May 17, 2023 01:14 PM NECK SOFT TISSUE: DILIA MENDOZA [id number] -1935 M Exm Date: MAY 17, 2023@13:14 Req Phys: RAMONA HUNTER Loc: CWM/NO/HBPC/PACT 2/SRN (Req'g Img Loc: [facility] 1 Service: Unknown (Case [id number] COMPLETE) NECK SOFT TISSUE (RAD Detailed) CPT:82762 Reason for Study: evaluate soft mobile nodules to left thyroid area Clinical History: Please also send to lab Report Status: Verified Date Reported: MAY 17, 2023 Date Verified: MAY 17, 2023 Sales Agent [employer] E-Sig:/ES/MORENA RUIZ JR Report: Study: AP and [...] Primary Interpreting Staff: MORENA RUIZ JR, Radiologist (Sales Agent [employer]amps) /MORENA CAMPBELL JR [place] [facility] Encounter Notes: All associated encounter notes This section contains the clinical notes associated to the Encounter. Date/Time Encounter Note(s) Provider Source Jun 05, 2023 10:10 AM NONVA NOTE: LOCAL TITLE: [facility] SELF PRESENTING CARE COORD PLAN STANDARD TITLE: NONVA NOTE DATE OF NOTE: JUN 05, 2023@10:10 ENTRY DATE: JUN 05, 2023@10:11:02 AUTHOR: XOCHITL BARKER EXP COSIGNER: URGENCY: STATUS: COMPLETED Emergency Notification Intake Date Presenting to the Facility: May Method of Contact: Notified from [employer] worklist Notification ID: [id number] [facility] Referral #: [id number] [facility] Hospital Name: Hospital: [facility] Address: City: [place] State: [place] Zip Code: Phone : Community Facility Point of Contact: Name: Tanika Phone: Chief complaint: I48.91 Primary Diagnosis: Disposition Admitted Route of Admission: ER Date of Admission: May Admitting Diagnosis: I48.91 [facility] Provider: Jesus Level of Care: /lalo/ XOCHITL TRAN Signed: 06/05/2023 10:13 Receipt Acknowledged By: 06/05/2023 12:33 /es/ JODI SUTTON, RN [facility] psychiatry instructor * AWAITING SIGNATURE * QAMAR ESPANA 06/05/2023 14:08 /es/ RAMONA HUNTER RN,MSN,MANAGER TRANSMISSION-C HB NURSE PRACTITIONER * AWAITING SIGNATURE * KRISTAL WYNN * AWAITING SIGNATURE * FABI ESQUIVEL 06/06/2023 12:19 /es/ ERICKA DEUTSCH Registered Nurse XOCHITL BARKER ADJUNTAS
--- OUTSIDE RECORDS SUMMARY | 2024-03-07 06:44 | XMS_ITS | Encounter Summary ---
Author Name [place] Address [address] [place] [address] Care Team Providers Care Snowmaker Name Role Phone RAMONA HUNTER Primary Care [...] PART B Feb 27, 2017 PART B [id number] ARONGUS,GUSTAVO NRY PATIENT MEDICARE (WNR) MEDICARE (M) PART B Feb 27, 2017 PART B [id number] ARONGUS,GUSTAVO NRY PATIENT MEDICARE (WNR) MEDICARE (M) PART A Feb 27, 2001 PART A [id number] WILGUS,GUSTAVO NRY PATIENT MEDICARE (WNR) MEDICARE (M) PART A Feb 27, 2001 PART A [id number] WILGUS,HE NRY PATIENT Selected Encounter This section includes the information on record at [place] for the Encounter. Date/Time Encounter Type Encounter Description Reason Pro vider Source May 29, 2023 11:33 AM Outpatient Encounter COMMUNITY CARE CONSULT IHE Encounter Template Text not used by [place] Plan of Treatment: Future Appointments (+ 6 months) and Future Tests (+/- 45 days) The Plan of Treatment section includes future care activities for the patient from all [place] treatmentfacilities. This section includes future appointments and future orders which are active, pending or scheduled. Future Appointments This section includes appointments that were scheduled to occur 6 months from the date of the Encounter, up to a maximum of 20 appointments. The data comes from all [place] treatment facilities. Appointment Date/Time Appointment Type Appointme nt Facility Name July 11, 2023 01:45 PM AMBULATORY - MEDICINE [place] [facility] Oct 04, 2023 02:00 PM AMBULATORY - REHAB MEDICIN E [place] [facility] [place] [facility] Oct 04, 2023 03:00 PM AMBULATORY - MEDICINE [place] [facility] Oct 04, 2023 03:30 PM AMBULATORY - MEDICINE [place] [facility] Oct 04, 2023 04:15 PM AMBULATORY - MEDICINE [place] [facility] Nov 28, 2023 08:00 AM AMBULATORY - MEDICINE [place] C [place] [facility] Lab Results: +/- 30 days of the encounter This section includes the Chemistry and Hematology Lab Results on record with [place] for the patient. Radiology Reports and Pathology Reports are provided separately, in subsequent sections. Lab Results This section contains the Chemistry/Hematology Results that were resulted 30 days before or 30 daysafter the date of the Encounter. Date/Time Source Result Type Result - Unit Interpretation Reference Range Comment May 23, 2023 02:11 PM [place] [facility] [facility] THYROID T4 FREE(FT4) Specimen Type: SERUM No comment entered. Ordering Provider: Alex HUNTER Report Released Date/Time: May 11, 2023 02:45 PM Reporting Lab: [place] [facility] [address] [facility] [address] Performing Lab: [facility] [address] [facility] [address] THYROID T4 FREE(FT4) 1.03 ng/dL 0.6-1.6 May 23, 2023 02:11 PM [facility] [place] [facility] THYROID TOTAL T3 Specimen Type: SERUM No comment entered. Ordering Provider: Alex HUNTER Report Released Date/Time: May 11, 2023 02:45 PM Reporting Lab: [facility] [place] [address] [address] Performing Lab: [place] [facility] [address] [facility] [address] THYROID TOTAL T3 75.21 ng/dL 35-193 May 23, 2023 02:11 PM [facility] [place] TSH Specimen Type: SERUM No comment entered. Ordering Provider: Alex HUNTER Report Released Date/Time: May 11, 2023 02:45 PM Reporting Lab: [facility] [place] [address] [address] Performing Lab: [facility] TRN [facility] SSD[facility] [address] [address] TSH 4.54 u[IU]/mL 0.35-5.00 May 23, 2023 02:11 PM [facility] PT & INR (PROTIME) Specimen Type: PLASMA No comment entered. Ordering Provider: Alex HUNTER Report Released Date/Time: May 11, 2023 02:45 PM Reporting Lab: [facility] [place] [address] [address] Performing Lab: [facility] TRN [facility] [address] [address] INR 1.0 PROTIME 11.8 s 10.0-13.1 May 23, 2023 02:11 PM [facility] [place] [facility] CBC AND DIFF (AUTO) Specimen Type: BLOOD No comment entered. Ordering Provider: Alex HUNTER Report Released Date/Time: May 11, 2023 02:45 PM Reporting Lab: [facility] [address] [facility] [address] Performing Lab: [facility] [address] [facility] [address] WBC 6.36 10*3/uL 4.50-11.00 RBC 4.94 10*6/uL 4.23-5.66 HGB 14.7 g/dL 12.8-17 HCT 42.9 39.2-50.4 MCV 86.8 fL 82-99 MCHC 34.3 g/dL 30.8-35.1 PLT 226 10*3/uL 140-360 RDW-CV 13.2 12.0-16.0 [place], Abs 0.47 10*3/uL 0.30-1.10 MCH 29.8 pg 26.2-32.6 Neut % 69.4 43.7-75.8 Lymph % 21.5 14.0-42.3 [place] % 7.4 5.1-13.7 Eos % 0.6 0.4-6.8 [...] and tobacco- related health factors from the [place] facility where the Encounter took place. Current Smoking Status This section includes the most current smoking, or tobacco-related health factor, from the [place] facility where the Encounter took place. Date/Time Current Smoking Status Comment Facil ity Dec 14, 2022 12:15 PM VA-TOBACCO NEVER USED [facility] Tobacco Use History This section includes a history of the smoking, or tobacco-related health factors, that were collected on or before the date of the Encounter. The data comes from the [place] facility where the Encounter took place. Date/Time Smoking Status/Tobacco Use Comment F acility Jan 10, 2019 10:51 AM [place]-TOBACCO NEVER USED [place] [facility] Advance Directives: All historical and current Section Date Range: From patient's date of to the date document was created. This section includes ALL of a patient's completed or amended [place] Advance and Rescinded Directives. The entries below indicate that a directive exists for the patient, but an actual copy is not included with this document. The data comes from all [place] facilities. Date Advance Directives Provider Source Aug [...] the Encounter. The data comes from all [place] treatment facilities. Date/Time Radiology Report Provider Source May 23, 2023 01:54 PM ULTRASOUND THYROID: DILIA MENDOZA [id number] -1935 M Exm Date: MAY 23, 2023@13:54 Req Phys: RAMONA HUNTER Loc: CWM/NO/HBPC/PACT 2/SNP (Req'g Img Loc: ULTRASOUND Service: Unknown (Case [id number] COMPLETE) ULTRASOUND THYROID (US Detailed) CPT:95698 Reason for Study: evalute soft mobile nodules to left thyroid area Clinical History: patient will be in [place] 05/22 so this day is preferred Report Status: Verified Date Reported: MAY 23, 2023 Date Verified: MAY 23, 2023 Air Drier Machine Operator E-Sig:/ES/MORENA RUIZ JR Report: Study: Thyroid [...] Committee. Merle et al., Journal of the [place] [employer] 2017;14:587-595. Primary Diagnostic Code: No immediate attention required Primary Interpreting Staff: MORENA RUIZ JR, Radiologist (Air Drier Machine Operator) /MORENA CAMPBELL JR [place] [facility] [place] [facility] May 17, 2023 01:14 PM NECK SOFT TISSUE: DILIA MENDOZA [id number] -1935 M Exm Date: MAY 17, 2023@13:14 Req Phys: RAMONA HUNTER Loc: CWM/NO/HBPC/PACT 2/SRN (Req'g Img Loc: [facility] 1 Service: Unknown (Case [id number] COMPLETE) NECK SOFT TISSUE (RAD Detailed) CPT:25563 Reason for Study: evaluate soft mobile nodules to left thyroid area Clinical History: Please also send to lab Report Status: Verified Date Reported: MAY 17, 2023 Date Verified: MAY 17, 2023 Air Drier Machine Operator E-Sig:/ES/MORENA RUIZ JR Report: Study: AP and [...] Primary Interpreting Staff: MORENA RUIZ JR, Radiologist (Air Drier Machine Operator) /MORENA CAMPBELL JR [place] [facility] Encounter Notes: All associated encounter notes This section contains the clinical notes associated to the Encounter. Date/Time Encounter Note(s) Provider Source May 29, 2023 11:33 AM NONVA NOTE: LOCAL TITLE: COMMUNITY CARE-JONA SELF PRESENTING CARE COORD PLAN STANDARD TITLE: NONVA NOTE DATE OF NOTE: MAY 29, 2023@11:33 ENTRY DATE: MAY 29, 2023@11:33:27 AUTHOR: XOCHITL BARKER EXP COSIGNER: URGENCY: STATUS: COMPLETED Emergency Notification Intake Date Presenting to the Facility: Apr Method of Contact: Notified from [facility] worklist Notification ID: [id number] [facility] Referral #: [id number] [facility] Name: Hospital: [facility] Address: City: [place] State: [place] Zip Code: Phone : Community Facility Point of Contact: Name: Phone: Chief complaint: WEAKNESS Primary Diagnosis: Disposition Admitted Route of Admission: ER Date of Admission: Apr Admitting Diagnosis: WEAKNESS Community Care Provider: Jesus Level of Care: /lalo/ XOCHITL TRAN Signed: 05/29/2023 11:34 Receipt Acknowledged By: 05/29/2023 14:02 /es/ JODI SUTTON, RN [facility] wholesale loan processor 05/29/2023 11:38 /es/ RAMONA HUNTER RN,MSN,DIRECTOR VIDEO-C HB NURSE PRACTITIONER 06/13/2023 17:10 /es/ Marjorie Anderson MSN,RN,[facility] MEDICAL RECORDS TECH/TRAVELING COORDINATOR XOCHITL BARKER CRANE
--- OUTSIDE RECORDS SUMMARY | 2024-03-07 06:44 | XMS_ITS | Encounter Summary ---
Author Name [facility] ([place]) Organization [facility] ([place]) Address [address] [place] [id number] Care Team Providers Care Representative Name Role Phone SARAY GARCIA Primary Care [...] PART B Feb 27, 2017 PART B [id number] WILGUS,HE NRY PATIENT MEDICARE (WNR) MEDICARE (M) PART B Feb 27, 2017 PART B [id number] WILGUS,HE NRY PATIENT MEDICARE (WNR) MEDICARE (M) PART A Feb 27, 2001 PART A [id number] WILGUS,HE NRY PATIENT MEDICARE (WNR) MEDICARE (M) PART A Feb 27, 2001 PART A [id number] [phone] WILGUS,HE NRY PATIENT Selected Encounter This section includes the information on record at OR for the Encounter. 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 Date/Time Primary/Secondary Diagnosis Diagnosis Name Provider Source Jun 19, 2023 11:32 AM PRIMARY nursing home (current) use of anticoagulants ANDRES BAGLEY [facility] Plan of Treatment: Future Appointments (+ 6 months) and Future Tests (+/- 45 days) The Plan of Treatment section includes future care activities for the patient from all OR treatmentfacilities. This section includes future appointments and future orders which are active, pending or scheduled. Future Appointments This section includes appointments that were scheduled to occur 6 months from the date of the Encounter, up to a maximum of 20 appointments. The data comes from all [place] treatment facilities. Appointment Date/Time Appointment Type Appointme nt Facility Name July 11, 2023 01:45 PM AMBULATORY - MEDICINE [facility] [place] [facility] Oct 04, 2023 02:00 PM AMBULATORY - REHAB MEDICIN E [place] [facility] [place] [facility] Oct 04, 2023 03:00 PM AMBULATORY - MEDICINE [place] C [facility] [place] [facility] Oct 04, 2023 03:30 PM AMBULATORY - MEDICINE [facility] [place] [facility] Oct 04, 2023 04:15 PM AMBULATORY - MEDICINE [facility] [place] [facility] Nov 28, 2023 08:00 AM AMBULATORY - MEDICINE [facility] [place] [facility] Dec 08, 2023 08:00 AM AMBULATORY - MEDICINE [facility] Dec 08, 2023 03:00 PM [facility] [place] [facility] Lab Results: +/- 30 days of the encounter This section includes the Chemistry and Hematology Lab Results on record with OR for the patient. Radiology Reports and Pathology Reports are provided separately, in subsequent sections. Lab Results This section contains the Chemistry/Hematology Results that were resulted 30 days before or 30 daysafter the date of the Encounter. Date/Time Source Result Type Result - Unit Interpretation Reference Range Comment May 23, 2023 02:11 PM [place] [facility] [place] [facility] THYROID T4 FREE(FT4) Specimen Type: SERUM No comment entered. Ordering Provider: Alex GARCIA Report Released Date/Time: May 11, 2023 02:45 PM Reporting Lab: [place] [facility] [place] [facility] [address] [facility] [address] Performing Lab: [place] [facility] [facility] [address] [facility] [address] THYROID T4 FREE(FT4) 1.03 ng/dL 0.6-1.6 May 23, 2023 02:11 PM [place] [facility] [facility] THYROID TOTAL T3 Specimen Type: SERUM No comment entered. Ordering Provider: Alex GARCIA Report Released Date/Time: May 11, 2023 02:45 PM Reporting Lab: [place] [facility] [place] [facility] [address] [facility] [address] Performing Lab: [place] [facility] [facility] [address] [facility] [address] THYROID TOTAL T3 75.21 ng/dL 35-193 May 23, 2023 02:11 PM [facility] [place] [facility] TSH Specimen Type: SERUM No comment entered. Ordering Provider: Alex GARCIA Report Released Date/Time: May 11, 2023 02:45 PM Reporting Lab: [place] [facility] [place] [facility] [address] [facility] [address] Performing Lab: [place] [facility] [facility] [address] [facility] [address] TSH 4.54 u[IU]/mL 0.35-5.00 May 23, 2023 02:11 PM [place] [facility] [place] [facility] PT & INR (PROTIME) Specimen Type: PLASMA No comment entered. Ordering Provider: Alex GARCIA Report Released Date/Time: May 11, 2023 02:45 PM Reporting Lab: [place] [facility] [place] [facility] [address] [facility] [address] Performing Lab: [facility] [address] [facility] [address] INR 1.0 PROTIME 11.8 s 10.0-13.1 May 23, 2023 02:11 PM [facility] CBC AND DIFF (AUTO) Specimen Type: BLOOD No comment entered. Ordering Provider: Alex GARCIA Report Released Date/Time: May 11, 2023 02:45 PM Reporting Lab: [facility] [address] [facility] [address] Performing Lab: [facility] [address] [facility] [address] WBC 6.36 10*3/uL 4.50-11.00 RBC 4.94 10*6/uL 4.23-5.66 HGB 14.7 g/dL 12.8-17 HCT 42.9 39.2-50.4 MCV 86.8 fL 82-99 MCHC 34.3 g/dL 30.8-35.1 PLT 226 10*3/uL 140-360 RDW-CV 13.2 12.0-16.0 [place], Abs 0.47 10*3/uL 0.30-1.10 MCH 29.8 pg 26.2-32.6 Neut % 69.4 43.7-75.8 Lymph % 21.5 14.0-42.3 [place] % 7.4 5.1-13.7 Eos % 0.6 0.4-6.8 Baso % 0.8 0.1-2.0 Neut, Abs 4.41 10*3/uL 2.20-7.60 Lymph, Abs 1.37 10*3/uL 1.00-3.20 Eos, Abs 0.04 10*3/uL 0.03-0.44 Baso, Abs 0.05 10*3/uL 0.01-0.13 Immature Gran % 0.3 0.0-0.7 Immature Gran, Abs 0.02 10*3/uL 0.00-0.06 Advance Directives: All historical and current Section Date Range: From patient's date of to the date document was created. This section includes ALL of a patient's completed or amended VA Advance and Rescinded Directives. The entries below indicate that a directive exists for the patient, but an actual copy is not included with this document. The data comes from all OR facilities. Date Advance Directives Provider Source Aug 14, 2020 ADVANCE DIRECTIVE CRISTOPHER BENITEZ FRANCHESKA Radiology Reports: +/- 30 days of the [...] the Encounter. The data comes from all OR treatment facilities. Date/Time Radiology Report Provider Source May 23, 2023 01:54 PM ULTRASOUND THYROID: DILIA MENDOZA [id number] -[id number] M Exm Date: MAY 23, 2023@13:54 Req Phys: SARAY GARCIA Loc: CWM/NO/HBPC/PACT 2/SNP (Req'g Img Loc: ULTRASOUND Service: Unknown (Case [id number] COMPLETE) ULTRASOUND THYROID (US Detailed) CPT:08591 Reason for Study: evalute soft mobile nodules to left thyroid area Clinical History: patient will be in [place] 05/22 so this day is preferred Report Status: Verified Date Reported: MAY 23, 2023 Date Verified: MAY 23, 2023 Lacquer Sizer E-Sig:/ES/MORENA RUIZ JR Report: Study: Thyroid ultrasound. [...] Committee. Merle et al., Journal of the [employer] 2017;14:587-595. Primary Diagnostic Code: No immediate attention required Primary Interpreting Staff: MORENA RUIZ JR, Radiologist (Lacquer Sizer) /MORENA CAMPBELL JR [facility] Encounter Notes: All associated encounter notes This section contains the clinical notes associated to the Encounter. Date/Time Encounter Note(s) Provider Source July 03, 2023 09:11 AM ADDENDUM: LOCAL TITLE: Addendum STANDARD TITLE: ADDENDUM DATE OF NOTE: JULY 03, 2023@09:11:28 ENTRY DATE: JULY 03, 2023@09:11:29 AUTHOR: ANGELES BAGLEY EXP COSIGNER: URGENCY: STATUS: COMPLETED Attempt #1 to reach pt for 4-week follow-up of anticoagulation therapy. Unable to speak with pt/significant other. Voice message left for pt/significant other asking them to contact this clinic at their convenience. Will place pt on schedule for follow-up attempt #2 07/06/23, unless pt calls back sooner. /lalo/ Angeles Bagley PharmD, [facility] Clinical Hammer Operator Signed: 07/03/2023 09:12 Receipt Acknowledged By: 07/03/2023 09:13 /lalo/ NAZ JIMENEZ [facility] Clinical Provider Network Mgr --- Original Document --- 06/19/23 CONSULT REPORT/ANTICOAGULATION CLINIC: Initial Note: Anticoagulation DOAC Agent Progress Note Reason for visit: Initial Education for Apixaban/Eliquis Indication: atrial fibrillation Start Date: Pre-consult, ~06/05/23 Expected Duration: Indefinite Referring Provider: Saray Garcia Patient Contact: ANDREA Martins: [phone] Patient has given permission to leave anticoagulation message on answering machine or with person listed. Subjective: Spoke with pt's significant other, Lakshmi (Comm auth on file) for initial apixaban education. Lakshmi notes pt was started on therapy about 2 weeks ago while hospitalized (found to have atrial fibrillation) - then went to rehab. Since being home from rehab, has been purchasing through a nonVA pharmacy (will purchase 2 more tablets today to hold over until able to get to the OR tomorrow to picker / packer Rx). Pt does not consume EtOH, Lakshmi helps with all aspects of medication administration (takes 7am and 7pm), no bleeding concerns since starting, nothing OTC (was only on MVI prior to this hospitalization). Did review reduced renal function while hospitalized and apixaban dosing. Reviewed potential for dose change of apixaban following SCr trend. Pt/Lakshmi unable to split tablets so will require 2.5mg tablet. Reviewed follow-up and passive monitoring. Rxs to be processed to [facility] window per Lakshmi's preference. Labs: CBC (last 90 days): CBC Collection [...] % 14.0 - 42.3 05/23/2023 14:11 BLOOD [place] % 7.4 % 5.1 - 13.7 05/23/2023 14:11 BLOOD Eos % 0.6 % 0.4 - 6.8 05/23/2023 14:11 BLOOD Baso % 0.8 % 0.1 - 2.0 SrCr (last 6 weeks): CREATININE-EGFR - NONE FOUND CRCL IBW: CrCl(est): 49.2 mL/min (Creat:1.16 03/20/23) CRCL ACT: No Creat CRCL ADJ: 49.2 mL/min (03/20/23) LFTs WNL Vitals: Weight (BMI): 188.9 lb [85.68 kg] (04/28/2023 13:30) BMI: 25.7 Height: 72 in [182.9 cm] (08/14/2020 10:08) Active Outpatient Medications (including Supplies): APIXABAN 5MG TAB TAKE ONE-HALF TABLET BY MOUTH EVERY 12 PENDING HOURS BRIEF,PROTECTIVE SUPER ABS MED ATTENDS USE 1 BRIEF ACTIVE DIRECTED ONCE DAILY NEEDED FOR PERSONAL CARE CARBAMIDE PEROXIDE 6.5% OTIC SOLN INSTILL 5 DROPS INTO THE ACTIVE AFFECTED EAR(S) TWICE DAILY FOR EAR WAX BLOCKAGE CARBOXYMETHYLCELLULOSE NA 0.5% OPH SOLN INSTILL 1 DROP ACTIVE INTO EACH EYE FOUR TIMES DAILY NEEDED FOR DRY EYE DICLOFENAC NA 1% TOP GEL APPLY 2 GRAMS TOPICALLY FOUR ACTIVE TIMES DAILY NEEDED FOR OSTEOARTHRITIS - USE DOSING CARD PROVIDED IN BOX GABAPENTIN 100MG CAP TAKE ONE CAPSULE BY MOUTH TWICE DAILY PENDING PANTOPRAZOLE NA 40MG EC TAB TAKE ONE TABLET BY MOUTH TWICE PENDING DAILY ZINC OXIDE 20% OINT APPLY THIN LAYER TOPICALLY ONCE DAILY ACTIVE NEEDED FOR SKIN IRRITATION Non-VA DOCUSATE NA 100MG CAP 100MG BY MOUTH ONCE DAILY ACTIVE NEEDED Non-VA METOCLOPRAMIDE HCL 10MG TAB 10MG BY MOUTH THREE ACTIVE TIMES DAILY NEEDED Interacting Meds: -- diclofenac topical: potential for increased risk of bleeding, monitor for s/sx of bleeding Apixaban: The patient was provided with the following education: -- Purpose of Apixaban -- Signs and symptoms of stroke and thrombosis and what to do should they occur -- Medication Identification -- Dosing recommendations -Apixaban may be taken with or without food -Apixaban may be crushed -- Storage recommendations -Store medication in a dry area at room temperature -- Recommendations for missed doses or overdosage -- Importance of medication compliance and avoiding lapses in therapy to minimize the risk of stroke -- Monitor for signs/symptoms of bleeding, including: -[place] or brown urine -Red or black tarry stools -Coughing up blood -Vomiting blood or vomit that looks like coffee grounds -Reoccurring nosebleeds -Unusual bleeding from the gums -Bleeding from a cut that does not stop -Headaches, dizziness or weakness -- Contact this clinic or provider if patient experiences and serious or intolerable adverse effects -- Review risks associated with falling -- Which medications to avoid due to drug interactions -- Importance of notifying all providers of any medication patient is taking or changes that may occur -- What to do if patient wants to discontinue therapy -- Contact this clinic or provider if scheduled for a procedure -- Contact number for the [facility] provided Assessment/Plan: CONTINUE : Apixaban 2.5mg twice daily - will need to monitor SCr trend as baseline SCr was much lower vs. when hospitalized Time Spent: 20 mins Next Appt: June 4 weeks WILL ASK FOR [facility] PLASTIC SHEETS SUPERVISOR TO PLEASE MAIL PT APIXABAN/ATRIAL FIBRILLATION HANDOUT FOR REVIEW Next PCP Appt: Unable to see next EDUCATION Provided with verbal instructions: Yes Provided with written instructions: No Barriers to learning: No Readiness to learn: Yes Specific dose directions reviewed: Yes Opportunity for questions/discussion: Yes Reports understanding of instructions: Yes Further learning needs: No /lalo/ Angeles Bagley PharmD, [facility] Clinical Hammer Operator Signed: 06/19/2023 11:43 Receipt Acknowledged By: 06/19/2023 11:49 /lalo/ NAZ JIMENEZ [facility] Clinical Provider Network Mgr 06/19/2023 ADDENDUM STATUS: COMPLETED Patient reports outside Hgb results: Date: June 16, 2023 Results: 13.6 Location: Outside Healthcare Provider Patient reports outside HCT results: Date: June 16, 2023 Results: 40.7 Location: Outside Healthcare Provider Patient reports outside PLT results: Date: June 16, 2023 Results: 280 Location: Outside Healthcare Provider Patient reports outside SCR results: Date: June 16, 2023 Results: 1.6 Location: Outside Healthcare Provider Patient reports outside BUN results: Date: June 16, 2023 Results: 23 Location: Outside Healthcare Provider Patient reports outside ALT results: Date: June 16, 2023 Results: 16 Location: Outside Healthcare Provider Patient reports outside AST results: Date: June 16, 2023 Results: 14 Location: Outside Healthcare Provider /bettye Bagley PharmD, [facility] Clinical Hammer Operator Signed: 06/19/2023 11:59 [facility] Jun 19, 2023 11:32 AM PHARMACY MEDICATIO N MGT CONSULT: LOCAL TITLE: CONSULT REPORT/ANTICOAGULATION CLINIC STANDARD TITLE: PHARMACY MEDICATION MGT CONSULT DATE OF NOTE: JUN 19, 2023@11:32 ENTRY DATE: JUN 19, 2023@11:32:47 AUTHOR: ANGELES BAGLEY EXP COSIGNER: URGENCY: STATUS: COMPLETED CONSULT REPORT/ANTICOAGULATION CLINIC Has ADDENDA Initial Note: Anticoagulation DOAC Agent Progress Note Reason for visit: Initial Education for Apixaban/Eliquis Indication: atrial fibrillation Start Date: Pre-consult, ~06/05/23 Expected Duration: Indefinite Referring Provider: Saray Garcia Patient Contact: ANDREA Lakshmi: [phone] Patient has given permission to leave anticoagulation message on answering machine or with person listed. Subjective: Spoke with pt's significant other, Lakshmi (Comm auth on file) for initial apixaban education. Lakshmi notes pt was started on therapy about 2 weeks ago while hospitalized (found to have atrial fibrillation) - then went to rehab. Since being home from rehab, has been purchasing through a nonVA pharmacy (will purchase 2 more tablets today to hold over until able to get to the OR tomorrow to picker / packer Rx). Pt does not consume EtOH, Lakshmi helps with all aspects of medication administration (takes 7am and 7pm), no bleeding concerns since starting, nothing OTC (was only on MVI prior to this hospitalization). Did review reduced renal function while hospitalized and apixaban dosing. Reviewed potential for dose change of apixaban following SCr trend. Pt/Lakshmi unable to split tablets so will require 2.5mg tablet. Reviewed follow-up and passive monitoring. Rxs to be processed to [facility] window per Lakshmi's preference. Labs: CBC (last 90 days): CBC Collection [...] % 14.0 - 42.3 05/23/2023 14:11 BLOOD [place] % 7.4 % 5.1 - 13.7 05/23/2023 14:11 BLOOD Eos % 0.6 % 0.4 - 6.8 05/23/2023 14:11 BLOOD Baso % 0.8 % 0.1 - 2.0 SrCr (last 6 weeks): CREATININE-EGFR - NONE FOUND CRCL IBW: CrCl(est): 49.2 mL/min (Creat:1.16 03/20/23) CRCL ACT: No Creat CRCL ADJ: 49.2 mL/min (03/20/23) LFTs WNL Vitals: Weight (BMI): 188.9 lb [85.68 kg] (04/28/2023 13:30) BMI: 25.7 Height: 72 in [182.9 cm] (08/14/2020 10:08) Active Outpatient Medications (including Supplies): APIXABAN 5MG TAB TAKE ONE-HALF TABLET BY MOUTH EVERY 12 PENDING HOURS BRIEF,PROTECTIVE SUPER ABS MED ATTENDS USE 1 BRIEF ACTIVE DIRECTED ONCE DAILY NEEDED FOR PERSONAL CARE CARBAMIDE PEROXIDE 6.5% OTIC SOLN INSTILL 5 DROPS INTO THE ACTIVE AFFECTED EAR(S) TWICE DAILY FOR EAR WAX BLOCKAGE CARBOXYMETHYLCELLULOSE NA 0.5% OPH SOLN INSTILL 1 DROP ACTIVE INTO EACH EYE FOUR TIMES DAILY NEEDED FOR DRY EYE DICLOFENAC NA 1% TOP GEL APPLY 2 GRAMS TOPICALLY FOUR ACTIVE TIMES DAILY NEEDED FOR OSTEOARTHRITIS - USE DOSING CARD PROVIDED IN BOX GABAPENTIN 100MG CAP TAKE ONE CAPSULE BY MOUTH TWICE DAILY PENDING PANTOPRAZOLE NA 40MG EC TAB TAKE ONE TABLET BY MOUTH TWICE PENDING DAILY ZINC OXIDE 20% OINT APPLY THIN LAYER TOPICALLY ONCE DAILY ACTIVE NEEDED FOR SKIN IRRITATION Non-VA DOCUSATE NA 100MG CAP 100MG BY MOUTH ONCE DAILY ACTIVE NEEDED Non-VA METOCLOPRAMIDE HCL 10MG TAB 10MG BY MOUTH THREE ACTIVE TIMES DAILY NEEDED Interacting Meds: -- diclofenac topical: potential for increased risk of bleeding, monitor for s/sx of bleeding Apixaban: The patient was provided with the following education: -- Purpose of Apixaban -- Signs and symptoms of stroke and thrombosis and what to do should they occur -- Medication Identification -- Dosing recommendations -Apixaban may be taken with or without food -Apixaban may be crushed -- Storage recommendations -Store medication in a dry area at room temperature -- Recommendations for missed doses or overdosage -- Importance of medication compliance and avoiding lapses in therapy to minimize the risk of stroke -- Monitor for signs/symptoms of bleeding, including: -[place] or brown urine -Red or black tarry stools -Coughing up blood -Vomiting blood or vomit that looks like coffee grounds -Reoccurring nosebleeds -Unusual bleeding from the gums -Bleeding from a cut that does not stop -Headaches, dizziness or weakness -- Contact this clinic or provider if patient experiences and serious or intolerable adverse effects -- Review risks associated with falling -- Which medications to avoid due to drug interactions -- Importance of notifying all providers of any medication patient is taking or changes that may occur -- What to do if patient wants to discontinue therapy -- Contact this clinic or provider if scheduled for a procedure -- Contact number for the [facility] provided Assessment/Plan: CONTINUE : Apixaban 2.5mg twice daily - will need to monitor SCr trend as baseline SCr was much lower vs. when hospitalized Time Spent: 20 mins Next Appt: June 4 weeks WILL ASK FOR [facility] PLASTIC SHEETS SUPERVISOR TO PLEASE MAIL PT APIXABAN/ATRIAL FIBRILLATION HANDOUT FOR REVIEW Next PCP Appt: Unable to see next EDUCATION Provided with verbal instructions: Yes Provided with written instructions: No Barriers to learning: No Readiness to learn: Yes Specific dose directions reviewed: Yes Opportunity for questions/discussion: Yes Reports understanding of instructions: Yes Further learning needs: No /lalo/ Angeles Bagley PharmD, [facility] Clinical Hammer Operator Signed: 06/19/2023 11:43 Receipt Acknowledged By: 06/19/2023 11:49 /lalo/ NAZ JIMENEZ [facility] Clinical Provider Network Mgr 06/19/2023 ADDENDUM STATUS: COMPLETED Patient reports outside Hgb results: Date: June 16, 2023 Results: 13.6 Location: Outside Healthcare Provider Patient reports outside HCT results: Date: June 16, 2023 Results: 40.7 Location: Outside Healthcare Provider Patient reports outside PLT results: Date: June 16, 2023 Results: 280 Location: Outside Healthcare Provider Patient reports outside SCR results: Date: June 16, 2023 Results: 1.6 Location: Outside Healthcare Provider Patient reports outside BUN results: Date: June 16, 2023 Results: 23 Location: Outside Healthcare Provider Patient reports outside ALT results: Date: June 16, 2023 Results: 16 Location: Outside Healthcare Provider Patient reports outside AST results: Date: June 16, 2023 Results: 14 Location: Outside Healthcare Provider /lalo/ Angeles Bagley PharmD, [facility] Clinical Hammer Operator Signed: 06/19/2023 11:59 07/03/2023 ADDENDUM STATUS: COMPLETED Attempt #1 to reach pt for 4-week follow-up of anticoagulation therapy. Unable to speak with pt/significant other. Voice message left for pt/significant other asking them to contact this clinic at their convenience. Will place pt on schedule for follow-up attempt #2 07/06/23, unless pt calls back sooner. /bettye Bagley PharmD, [facility] Clinical Hammer Operator Signed: 07/03/2023 09:12 Receipt Acknowledged By: 07/03/2023 09:13 /lalo/ NAZ JIMENEZ [facility] Clinical Provider Network Mgr ANGELES BAGLEY [facility]
--- OUTSIDE RECORDS SUMMARY | 2024-03-07 06:45 | XMS_ITS ---
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 Date/Time Encounter Type Encounter Description Reason Pro vider Source Apr 28, 2023 12:00 PM Outpatient Encounter COMMUNITY CARE [...] Date/Time Appointment Type Appointme nt Facility Name May 17, 2023 01:30 PM AMBULATORY - NONE [place] [facility] [place] [facility] May 23, 2023 11:00 AM AMBULATORY - REHAB MEDICIN E [facility] [place] [facility] May 23, 2023 01:00 PM AMBULATORY - MEDICINE [place] [facility] [place] [facility] May 23, 2023 03:00 PM AMBULATORY - NONE [facility] [place] [facility] July 11, 2023 01:45 PM AMBULATORY - MEDICINE [place] [facility] [place] [facility] Oct 04, 2023 02:00 PM AMBULATORY - REHAB MEDICIN E [facility] [place] [facility] Oct 04, 2023 03:00 PM AMBULATORY - MEDICINE [place] [facility] [place] [facility] Oct 04, 2023 03:30 PM AMBULATORY - MEDICINE [place] [facility] [place] [facility] Oct 04, 2023 04:15 PM AMBULATORY - MEDICINE [place] [facility] [place] [facility] Lab Results: +/- 30 days [...] 2023 02:11 PM [place] [facility] [place] [facility] THYROID T4 FREE(FT4) Specimen Type: SERUM No comment entered. Ordering Provider: Alex HUNTER Report Released Date/Time: May 11, 2023 02:45 PM Reporting Lab: [place] [facility] [place] [facility] [address] [facility] [address] Performing Lab: [facility] [place] [facility] [address] [facility] [address] THYROID T4 FREE(FT4) 1.03 ng/dL 0.6-1.6 May 23, 2023 02:11 PM [facility] [place] [facility] THYROID TOTAL T3 Specimen Type: SERUM No comment entered. Ordering Provider: Alex HUNTER Report Released Date/Time: May 11, 2023 02:45 PM Reporting Lab: [place] [facility] [place] [facility] [address] [facility] [address] Performing Lab: [facility] [address] [facility] [address] THYROID TOTAL T3 75.21 ng/dL 35-193 May 23, 2023 02:11 PM [facility] TSH Specimen Type: SERUM No comment entered. Ordering Provider: Alex HUNTER Report Released Date/Time: May 11, 2023 02:45 PM Reporting Lab: [facility] [place] [facility] [address] [facility] [address] Performing Lab: [place] [facility] [address] [address] TSH 4.54 u[IU]/mL 0.35-5.00 May 23, 2023 02:11 PM [facility] PT & INR (PROTIME) Specimen Type: PLASMA No comment entered. Ordering Provider: Alex HUNTER Report Released Date/Time: May 11, 2023 02:45 PM Reporting Lab: [place] [facility] [place] [facility] [address] [facility] [address] Performing Lab: [facility] [address] [address] INR 1.0 PROTIME 11.8 s 10.0-13.1 May 23, 2023 02:11 PM [facility] CBC AND DIFF (AUTO) Specimen Type: BLOOD No comment entered. Ordering Provider: Alex HUNTER Report Released Date/Time: May 11, 2023 02:45 PM Reporting Lab: [facility] [address] [facility] [address] Performing Lab: [facility] [address] [facility] [address] WBC 6.36 10*3/uL 4.50-11.00 RBC 4.94 10*6/uL 4.23-5.66 HGB 14.7 g/dL 12.8-17 HCT 42.9 39.2-50.4 MCV 86.8 fL 82-99 MCHC 34.3 g/dL 30.8-35.1 PLT 226 10*3/uL 140-360 RDW-CV 13.2 12.0-16.0 [place], Abs 0.47 10*3/uL 0.30-1.10 MCH 29.8 pg 26.2-32.6 Neut % 69.4 43.7-75.8 Lymph % 21.5 14.0-42.3 [place] % 7.4 5.1-13.7 Eos % 0.6 0.4-6.8 [...] Pain Height Weight Body Mass Index Source Apr 28, 2023 01:30 PM 97.3 75 130/84 16 99 0 188.9 26 [facility] Social History: Smoking Status (Most current) [...] 14, 2022 12:15 PM VA-TOBACCO NEVER USED [facility] Tobacco Use History This section includes a history of the smoking, or tobacco-related health factors, that were collected on or before the date of the Encounter. The data comes from the [place] facility where the Encounter took place. Date/Time Smoking Status/Tobacco Use Comment Dane acility Jan 10, 2019 10:51 AM VA-TOBACCO NEVER USED [facility] Advance Directives: All historical and current [...] 01:54 PM ULTRASOUND THYROID: DILIA MENDOZA BRIGID [id number] -1935 M Ex Date: MAY 23, 2023@13:54 Req Phys: RAMONA HUNTER Loc: CWM/NO/HBPC/PACT 2/SNP (Req'g Img Loc: ULTRASOUND Service: Unknown (Case [id number] COMPLETE) ULTRASOUND THYROID (US Detailed) CPT:80605 Reason for Study: evalute soft mobile nodules to left thyroid area Clinical History: patient will be in [place] 05/22 so this day is preferred Report Status: Verified Date Reported: MAY 23, 2023 Date Verified: MAY 23, 2023 Elastic Cutter E-Sig:/ES/MORENA RUIZ JR Report: Study: Thyroid ultrasound. [...] Committee. Mariselsler et al., Journal of the [employer] 2017;14:587-595. Primary Diagnostic Code: No immediate attention required Primary Interpreting Staff: MORENA RUIZ JR, Radiologist (Elastic Cutter) /MORENA CAMPBELL JR [place] [facility] [place] [facility] May 17, 2023 01:14 PM NECK SOFT TISSUE: DILIA MENDOZA [id number] -1935 M [facility] Date: MAY 17, 2023@13:14 Req Phys: RAMONA HUNTER Loc: CWM/NO/HBPC/PACT 2/SRN (Req'g Img Loc: [facility] 1 Service: Unknown (Case [id number] COMPLETE) NECK SOFT TISSUE (RAD Detailed) CPT:93723 Reason for Study: evaluate soft mobile nodules to left thyroid area Clinical History: Please also send to lab Report Status: Verified Date Reported: MAY 17, 2023 Date Verified: MAY 17, 2023 Elastic Cutter E-Sig:/ES/MORENA RUIZ JR Report: Study: AP and [...] Primary Interpreting Staff: MORENA RUIZ JR, Radiologist (Elastic Cutter) /EAD MORENA RUIZ JR [facility] Encounter Notes: All associated encounter notes This section contains the clinical notes associated to the Encounter. Date/Time Encounter Note(s) Provider Source Apr 28, 2023 12:00 PM NONVA CONSULT: LOCAL TITLE: COMMUNITY CARE-CONSULT RESULT NOTE STANDARD TITLE: NONVA CONSULT DATE OF NOTE: APR 28, 2023@12:00 ENTRY DATE: JUNE 30, 2023@14:04:04 AUTHOR: SB AGUILAR COSIGNER: URGENCY: STATUS: COMPLETED VistA Imaging - Scanned Document [facility] [place] [facility] VISITS 04/27-05/25 SCANNED DOCUMENT SIGNATURE NOT REQUIRED Electronically Filed: 06/30/2023 by: SB AGUILAR COOK [employer] KETTLE SB AGUILAR [facility]
--- OUTSIDE RECORDS SUMMARY | 2024-03-07 06:45 | XMS_ITS | Encounter Summary ---
Author Name [facility] [place] Address [address] [place] [address] Care Team Providers Care It Service Continuity Supervisor Name Role Phone RAMONA HUNTER Primary Care [...] PART B Feb 27, 2017 PART B [id number] REJI,GUSTAVO NRY PATIENT MEDICARE (WNR) MEDICARE (M) PART B Feb 27, 2017 PART B [id number] REJI,GUSTAVO NRY PATIENT MEDICARE (WNR) MEDICARE (M) PART A Feb 27, 2001 PART A [id number] WILGUS,HE NRY PATIENT MEDICARE (WNR) MEDICARE (M) PART A Feb 27, 2001 PART A [id number] [phone] GUSTAVO CLINE PATIENT Selected Encounter This section includes the information on record at [place] for the Encounter. 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 Date/Time Primary/Secondary Diagnosis Diagnosis Name Provider Source Apr 28, 2023 04:23 PM PRIMARY Other nursing home (current) drug therapy FRANK PIZANO [facility] [place] [facility] Plan of Treatment: Future Appointments (+ [...] 17, 2023 01:30 PM AMBULATORY - NONE [place] [facility] [place] [facility] May 23, 2023 11:00 AM AMBULATORY - REHAB MEDICIN E [facility] [place] [facility] May 23, 2023 01:00 PM AMBULATORY - MEDICINE [place] [facility] [place] [place] [facility] May 23, 2023 03:00 PM AMBULATORY - NONE [place] [facility] [place] [facility] July 11, 2023 01:45 PM AMBULATORY - MEDICINE [place] [facility] [place] [facility] Oct 04, 2023 02:00 PM AMBULATORY - REHAB MEDICIN E [facility] [place] [facility] Oct 04, 2023 03:00 PM AMBULATORY - MEDICINE [place] [facility] [place] [facility] Oct 04, 2023 03:30 PM AMBULATORY - MEDICINE [place] [facility] [place] [facility] Oct 04, 2023 04:15 PM AMBULATORY - MEDICINE [place] [facility] [place] [facility] Lab Results: +/- 30 days of the encounter This section includes the Chemistry and Hematology Lab Results on record with [place] for the patient. Radiology Reports and Pathology Reports are provided separately, in subsequent sections. Lab Results This section contains the Chemistry/Hematology Results that were resulted 30 days before or 30 daysafter the date of the Encounter. Date/Time Source Result Type Result - Unit Interpretation Reference Range Comment May 23, 2023 02:11 PM [facility] THYROID T4 FREE(FT4) Specimen Type: SERUM No comment entered. Ordering Provider: Alex HUNTER Report Released Date/Time: May 11, 2023 02:45 PM Reporting Lab: [facility] [place] [facility] [address] [facility] [address] Performing Lab: [facility] [place] [facility] [address] [facility] [address] THYROID T4 FREE(FT4) 1.03 ng/dL 0.6-1.6 May 23, 2023 02:11 PM [facility] THYROID TOTAL T3 Specimen Type: SERUM No comment entered. Ordering Provider: Alex HUNTER Report Released Date/Time: May 11, 2023 02:45 PM Reporting Lab: [facility] [place] [facility] [address] [facility] [address] Performing Lab: [facility] [place] [facility] [address] [facility] [address] THYROID TOTAL T3 75.21 ng/dL 35-193 May 23, 2023 02:11 PM [facility] TSH Specimen Type: SERUM No comment entered. Ordering Provider: Alex HUNTER Report Released Date/Time: May 11, 2023 02:45 PM Reporting Lab: [facility] [place] [facility] [address] [facility] [address] Performing Lab: [facility] [address] [address] TSH 4.54 u[IU]/mL 0.35-5.00 May 23, 2023 02:11 PM [facility] PT & INR (PROTIME) Specimen Type: PLASMA No comment entered. Ordering Provider: Alex HUNTER Report Released Date/Time: May 11, 2023 02:45 PM Reporting Lab: [facility] [address] [facility] [address] Performing Lab: [address] [address] INR 1.0 PROTIME 11.8 s 10.0-13.1 May 23, 2023 02:11 PM [facility] CBC AND DIFF (AUTO) Specimen Type: BLOOD No comment entered. Ordering Provider: Alex HUNTER Report Released Date/Time: May 11, 2023 02:45 PM Reporting Lab: [address] [address] Performing Lab: [address] [address] WBC 6.36 10*3/uL 4.50-11.00 RBC 4.94 10*6/uL 4.23-5.66 HGB 14.7 g/dL 12.8-17 HCT 42.9 39.2-50.4 MCV 86.8 fL 82-99 MCHC 34.3 g/dL 30.8-35.1 PLT 226 10*3/uL 140-360 RDW-CV 13.2 12.0-16.0 [place], Abs 0.47 10*3/uL 0.30-1.10 MCH 29.8 pg 26.2-32.6 Neut % 69.4 43.7-75.8 Lymph % 21.5 14.0-42.3 [place] % 7.4 5.1-13.7 Eos % 0.6 0.4-6.8 [...] 75 130/84 16 99 0 188.9 26 [facility] Atom EntertainmentTRN Individual DigitalU [employer] [facility] Social History: Smoking Status (Most [...] 14, 2022 12:15 PM VA-TOBACCO NEVER USED [place] [employer] [facility] Tobacco Use History This section includes a history of the smoking, or tobacco-related health factors, that were collected on or before the date of the Encounter. The data comes from the [place] facility where the Encounter took place. Date/Time Smoking Status/Tobacco Use Comment F acility Jan 10, 2019 10:51 AM VA-TOBACCO NEVER USED [place] [employer] [facility] Advance Directives: All historical and [...] the Encounter. The data comes from all [place] treatment facilities. Date/Time Radiology Report Provider Source May 23, 2023 01:54 PM ULTRASOUND THYROID: DILIA CLINE [id number] -1935 M Exm Date: MAY 23, 2023@13:54 Req Phys: RAMONA HUNTER Loc: CWM/NO/HBPC/PACT 2/SNP (Req'g Img Loc: ULTRASOUND Service: Unknown (Case [id number] COMPLETE) ULTRASOUND THYROID (US Detailed) CPT:65352 Reason for Study: evalute soft mobile nodules to left thyroid area Clinical History: patient will be in [place] 05/22 so this day is preferred Report Status: Verified Date Reported: MAY 23, 2023 Date Verified: MAY 23, 2023 Roll Trucker E-Sig:/ES/MORENA RUIZ JR Report: Study: Thyroid ultrasound. [...] Committee. Mariselsler et al., Journal of the [employer] 2017;14:587-595. Primary Diagnostic Code: No immediate attention required Primary Interpreting Staff: MORENA RUIZ JR, Radiologist (Roll Trucker) /MORENA CAMPBELL JR [place] [facility] [place] [facility] May 17, 2023 01:14 PM NECK SOFT TISSUE: DILIA CLINE [id number] -1935 M [facility] Date: MAY 17, 2023@13:14 Req Phys: RAMONA HUNTER Loc: CWM/NO/HBPC/PACT 2/SRN (Req'g Img Loc: [facility] 1 Service: Unknown (Case [id number] COMPLETE) NECK SOFT TISSUE (RAD Detailed) CPT:54091 Reason for Study: evaluate soft mobile nodules to left thyroid area Clinical History: Please also send to lab Report Status: Verified Date Reported: MAY 17, 2023 Date Verified: MAY 17, 2023 Roll Trucker E-Sig:/ES/MORENA RUIZ JR Report: Study: AP and [...] Primary Interpreting Staff: MORENA RUIZ JR, Radiologist (Roll Trucker) /MORENA CAMPBELL JR [facility] Encounter Notes: All associated encounter notes This section contains the clinical notes associated to the Encounter. Date/Time Encounter Note(s) Provider Source Apr 28, 2023 03:27 PM [facility] MEDICATION MGT NOTE: LOCAL TITLE: HB PHARMACY MEDICATION REVIEW STANDARD TITLE: [facility] MEDICATION MGT NOTE DATE OF NOTE: APR 28, 2023@15:27 ENTRY DATE: APR 28, 2023@15:27:31 AUTHOR: FRANK PIZANO COSIGNER: URGENCY: STATUS: COMPLETED Dilia Cline is a 88 year-old WHITE MALE. PMH (per problem list): Alzheimer's dementia, hiccups, hx of anemia, white matter disease, thyroid gland disorder, shoulder pain, actinic keratosis, HTN, d/o meniscus of knee, BPH, ED, spinal stenosis, cataract, hearing loss, dry eyes Alcohol (-) Tobacco (-) Allergies/ADR: LATEX GLOVE (rash) ========= Active Outpatient Medications Status ========= 1) CARBAMIDE PEROXIDE 6.5% OTIC SOLN INSTILL 5 DROPS ACTIVE INTO THE AFFECTED EAR(S) TWICE DAILY FOR EAR WAX BLOCKAGE * RENEWED 2) CARBOXYMETHYLCELLULOSE NA 0.5% OPH SOLN INSTILL 1 ACTIVE DROP INTO EACH EYE FOUR TIMES DAILY NEEDED FOR DRY EYE 3) DICLOFENAC NA 1% TOP GEL APPLY 2 GRAMS TOPICALLY FOUR ACTIVE TIMES DAILY NEEDED FOR OSTEOARTHRITIS - USE DOSING CARD PROVIDED IN BOX 4) MULTIVITAMIN/MINERALS CAP/TAB TAKE 1 TABLET BY MOUTH ACTIVE ONCE DAILY FOR VITAMIN SUPPLEMENTATION 5) ZINC OXIDE 20% OINT APPLY THIN LAYER TOPICALLY ONCE ACTIVE DAILY NEEDED FOR SKIN IRRITATION Active Non-VA Medications Status ========= 1) Non-VA DOCUSATE NA 100MG CAP 100MG BY MOUTH ONCE ACTIVE DAILY NEEDED 2) Non-VA METOCLOPRAMIDE HCL 10MG TAB 10MG BY MOUTH ACTIVE THREE TIMES DAILY NEEDED * rare use per addendum to 01/23/23 [facility] Pharmacy Med Review THE ABOVE MEDICATIONS WERE REVIEWED FOR: ADR, potential incompatibilities, compliance, duplication of therapy, and indications on problem list Other Rx/OTC/Herbals: none identified High Alert Meds: none Look Alike/Sound Alike Meds: none Duplication of Therapy: none Excessive Duration: ?multivitamin, ?metoclopramide Vitals: ======= Ht: 72 in [182.9 cm] (08/14/2020 10:08) Wt: 188 lb [85.28 kg] (03/20/2023 12:30) BMI: 25.6 BP: 136/72 (04/19/2023 12:00) HR: 66 (04/19/2023 12:00) Pain: 0 (04/19/2023 12:00) Labs: ===== *labwork from [facility] SERUM Na K BUN SCr 03/20/23 137 4.8 15 1.16 eGFR (CKD-EPI 2020): 61 (03/20/23) CrCl (C&G, SCr 1.16, adj BW): ~51 mL/min EKG (*12/30/22): sinus rhythm with first-degree AV block at 64 bpm, right bundle branch block pattern, no acute STEMI noted. No change compared to prior EKG dated April 23, 2022. SERUM AST ALT *12/30/22 16 11 10/07/22 13 15 BLOOD WBC Hgb Hct MCV Plt *12/30/22 6.4 13.6 40.2 88 208 10/07/22 5.57 14 42.2 88.5 218 A1c: 5.3 % (03/20/23) TSH: 5.18 H uIU/mL (03/20/23) T4: 0.97 ng/dL (03/20/23) Vit B12: 793 pg/mL (04/29/22) Folate: 17.2 ng/mL (08/14/20) SERUM LDL HDL TG Tot Chol 10/07/22 114 42 149 186 Vit D: 32 ng/mL (10/07/22) Ca: 8.5 mg/dL (*12/30/22) Alb: 3.6 g/dL (*12/30/22) 3.4 L g/dL (10/07/22) ASSESSMENT: In the last 90 days: - No falls/hospitalizations/infection s noted - Per the 02/13/23 [facility] RN note, caregiver stated that at recent ENT visit on 01/24/23 it was recommended that use ear drops with irrigation once monthly for impacted cerumen. Plan for f/u in ~1 year. [facility] RN doing ear irrigations every 6 weeks for maintenance. INTERVENTIONS/SUGGESTIONS: 1. Patient's medications were reviewed for significant drug interactions. No significant findings, but will continue to monitor with adjustments to medication regimen. 2. Patient has reduced renal function with an estimated creatinine clearance of ~51 mL/min, therefore at risk of accumulation of renally cleared drugs. LFTs WNL. Current medications are dosed appropriately for the patient's renal and hepatic function. 3. Medications reviewed to determine if regimen could contribute to falls. Metoclopramide use may increase fall risk given possible side effects of dizziness, drowsiness, and confusion. [place] has a history of falls with no documented falls over the past year. To reduce the risk for falls, educate pt re: safe postural transitions and signs/sx of orthostatic hypotension. 4. All medical conditions have appropriate medication treatment. * hx of anemia - last CBC WNL * Alzheimer's dementia - no cognitive agents at this time, would be cautious with considering donepezil given RBBB seen on EKG from Dec 2022 ED visit and hx of dizziness * HTN - last BPs reasonably controlled off of antihypertensive, previously on lisinopril - stopped 04/29/22 in the setting of lower BPs and positive orthostasis on 5 mg dose * BPH - no tx, no documented hx of elevated PSA but could consider ordering a level to see if finasteride is indicated * ED - not on pharmacotherapy, no recent complaints per chart review, previously used PRN sildenafil - last Rx in 2018 5. All medications have an appropriate indication and supporting clinical symptoms. * multivitamin - no clear indication * metoclopramide - used intermittently for hiccups; rare use per addendum to 01/23/23 [facility] Pharmacy Med Review; continue to weigh risks versus benefit given increased risk of AEs with use in older adults 6. Adherence Concerns: no concerns at this time 7. Health Maintenance: > Immunizations: [place] is due for the following immunizations per chart review and CDC recommendations: * Tdap * PCV20 (shared decision making) > Bladder/Bowel: * Inquire about incontinence and severity biannually. > Bone Health: * not taking Ca or vit D supplementation * last vit D and Ca levels WNL > Aspirin: * not taking low-dose aspirin, no hx of ASCVD per problem list 8. Patient with zero refills on: carbamide peroxide 9. Continue to review quarterly. Recommendations: - [facility] RN has been doing ear irrigations every 6 weeks for maintenance as recommended by 's ENT provider per the 04/18/23 IDT note. 's current carbamide peroxide order is out of refills; please reorder Rx with refills if deemed appropriate. - Please assess 's willingness to receive the Tdap vaccine during next scheduled visit. - Would consider obtaining updated vit B12 and folate levels with next scheduled labwork to assess for reversible causes of cognitive decline in the setting of dementia. The details of this review were shared with the IDT in order to assist in creating a care plan designed to provide services focused on the health and well being of the patient. Time Spent: 60 min /lalo/ FRANK PIZANO [facility] Clinical Pharmacist Practitioner Signed: 04/28/2023 16:24 Receipt Acknowledged By: 05/01/2023 16:46 /es/ JODI SUTTON, RN [facility] packing checker 05/05/2023 11:01 /es/ RAMONA HUNTER RN,MSN,LINUX SECURITY ADMINISTRATOR-C [facility] NURSE PRACTITIONER [facility]ANK PI[facility]O [facility]
--- OUTSIDE RECORDS SUMMARY | 2024-03-07 06:45 | XMS_ITS | Encounter Summary ---
Author Name [facility] [place] Organization [facility] [place] Address [address] [place] [id number] Care Team Providers Care Injector Assembler Name Role Phone RAMONA HUNTER Primary Care [...] PART B Feb 27, 2017 PART B [id number] ARONGUS,GUSTAVO NRY PATIENT MEDICARE (WNR) MEDICARE (M) PART B Feb 27, 2017 PART B [id number] ARONGUS,GUSTAVO NRY PATIENT MEDICARE (WNR) MEDICARE (M) PART A Feb 27, 2001 PART A [id number] ARONGUS,GUSTAVO NRY PATIENT MEDICARE (WNR) MEDICARE (M) PART A Feb 27, 2001 PART A [id number] WILGUS,HE NRY PATIENT Selected Encounter This section includes the information on record at [place] for the Encounter. Date/Time Encounter Type Encounter Description Reason Provider Source May 17, 2023 01:58 PM Outpatient Encounter TELEPHONE [facility] VANDANA HUNTER Encounter Template Text not used by [place] Plan of Treatment: Future Appointments (+ 6 months) and Future Tests (+/- 45 days) The Plan of Treatment section includes future care activities for the patient from all [place] [facility]. This section includes future appointments and future orders which are active, pending or scheduled. Future Appointments This section includes appointments that were scheduled to occur 6 months from the date of the Encounter, up to a maximum of 20 appointments. The data comes from all [place] treatment facilities. Appointment Date/Time Appointment Type Appointme nt Facility Name May 23, 2023 11:00 AM AMBULATORY - REHAB MEDICIN E [place] [facility] [place] [facility] May 23, 2023 01:00 PM AMBULATORY - MEDICINE [place] [facility] [place] [facility] May 23, 2023 03:00 PM AMBULATORY - NONE [place] [facility] [place] [facility] July 11, 2023 01:45 PM AMBULATORY - MEDICINE [place] [facility] [place] [facility] Oct 04, 2023 02:00 PM AMBULATORY - REHAB MEDICIN E [place] [facility] [place] [facility] Oct 04, 2023 03:00 PM AMBULATORY - MEDICINE [place] [facility] [facility] Oct 04, 2023 03:30 PM AMBULATORY - MEDICINE [place] [facility] [facility] Oct 04, 2023 04:15 PM AMBULATORY - MEDICINE [place] [facility] [place] [facility] Lab Results: +/- 30 days of the encounter This section includes the Chemistry and Hematology Lab Results on record with [place] for the patient. Radiology Reports and Pathology Reports are provided separately, in subsequent sections. Lab Results This section contains the Chemistry/Hematology Results that were resulted 30 days before or 30 daysafter the date of the Encounter. Date/Time Source Result Type Result - Unit Interpretation Reference Range Comment May 23, 2023 02:11 PM [place] [facility] [place] [facility] THYROID T4 FREE(FT4) Specimen Type: SERUM No comment entered. Ordering Provider: Alex HUNTER Report Released Date/Time: May 11, 2023 02:45 PM Reporting Lab: [facility] [place] [facility] [address] [facility] [address] Performing Lab: [facility] [place] [facility] [address] [facility] [address] THYROID T4 FREE(FT4) 1.03 ng/dL 0.6-1.6 May 23, 2023 02:11 PM [facility] [place] [facility] THYROID TOTAL T3 Specimen Type: SERUM No comment entered. Ordering Provider: Alex HUNTER Report Released Date/Time: May 11, 2023 02:45 PM Reporting Lab: [place] [facility] [place] [facility] [address] [facility] [address] Performing Lab: [place] [facility] [place] [facility] [address] [facility] [address] THYROID TOTAL T3 75.21 ng/dL 35-193 May 23, 2023 02:11 PM [facility] TSH Specimen Type: SERUM No comment entered. Ordering Provider: Alex HUNTER Report Released Date/Time: May 11, 2023 02:45 PM Reporting Lab: [place] [facility] [place] [facility] [address] [facility] [address] Performing Lab: [place] [facility] [facility] [address] [facility] [address] TSH 4.54 u[IU]/mL 0.35-5.00 May 23, 2023 02:11 PM [facility] [place] [facility] PT & INR (PROTIME) Specimen Type: PLASMA No comment entered. Ordering Provider: Alex HUNTER Report Released Date/Time: May 11, 2023 02:45 PM Reporting Lab: [place] [facility] [place] [facility] [address] [facility] [address] Performing Lab: [place] [facility] [place] [address] [address] INR 1.0 PROTIME 11.8 s 10.0-13.1 May 23, 2023 02:11 PM [facility] CBC AND DIFF (AUTO) Specimen Type: BLOOD No comment entered. Ordering Provider: Alex HUNTER Report Released Date/Time: May 11, 2023 02:45 PM Reporting Lab: [facility] [address] [facility] [address] Performing Lab: [facility] [address] [facility] [address] WBC 6.36 10*3/uL 4.50-11.00 RBC 4.94 10*6/uL 4.23-5.66 HGB 14.7 g/dL 12.8-17 HCT 42.9 39.2-50.4 MCV 86.8 fL 82-99 MCHC 34.3 g/dL 30.8-35.1 PLT 226 10*3/uL 140-360 RDW-CV 13.2 12.0-16.0 Christian, Abs 0.47 10*3/uL 0.30-1.10 MCH 29.8 pg 26.2-32.6 Neut % 69.4 43.7-75.8 Lymph % 21.5 14.0-42.3 Christian % 7.4 5.1-13.7 Eos % 0.6 0.4-6.8 [...] 14, 2022 12:15 PM VA-TOBACCO NEVER USED [facility] Tobacco Use History This section includes a history of the smoking, or tobacco-related health factors, that were collected on or before the date of the Encounter. The data comes from the [place] facility where the Encounter took place. Date/Time Smoking Status/Tobacco Use Comment Dane mercado Jan 10, 2019 10:51 AM [place]-TOBACCO NEVER USED [facility] Advance Directives: All historical and current [...] the Encounter. The data comes from all [place] treatment facilities. Date/Time Radiology Report Provider Source May 23, 2023 01:54 PM ULTRASOUND THYROID: DILIA MENDOZA [id number] -1935 M Exm Date: MAY 23, 2023@13:54 Req Phys: RAMONA HUNTER Loc: CWM/NO/HBPC/PACT 2/SNP (Req'g Img Loc: ULTRASOUND Service: Unknown (Case [id number] COMPLETE) ULTRASOUND THYROID (US Detailed) CPT:50399 Reason for Study: evalute soft mobile nodules to left thyroid area Clinical History: patient will be in [place] 05/22 so this day is preferred Report Status: Verified Date Reported: MAY 23, 2023 Date Verified: MAY 23, 2023 Estate Planning Attorney E-Sig:/ES/MORENA RUIZ JR Report: Study: Thyroid ultrasound. [...] Committee. Mariselsisadora et al., Journal of the [employer] 2017;14:587-595. Primary Diagnostic Code: No immediate attention required Primary Interpreting Staff: MORENA RUIZ JR, Radiologist (Estate Planning Attorney) /MORENA CAMPBELL JR [facility] May 17, 2023 01:14 PM NECK SOFT TISSUE: DILIA MENDOZA [id number] -1935 M Ex Date: MAY 17, 2023@13:14 Req Phys: RAMONA HUNTER Loc: CWM/NO/HBPC/PACT 2/SRN (Req'g Img Loc: [facility] 1 Service: Unknown (Case [id number] COMPLETE) NECK SOFT TISSUE (RAD Detailed) CPT:86077 Reason for Study: evaluate soft mobile nodules to left thyroid area Clinical History: Please also send to lab Report Status: Verified Date Reported: MAY 17, 2023 Date Verified: MAY 17, 2023 Estate Planning Attorney E-Sig:/ES/MORENA RUIZ JR Report: Study: AP and [...] Primary Interpreting Staff: MORENA RUIZ JR, Radiologist (Estate Planning Attorney) /MORENA CAMPBELL JR [place] [facility] Encounter Notes: All associated encounter notes This section contains the clinical notes associated to the Encounter. Date/Time Encounter Note(s) Provider Source May 17, 2023 01:58 PM [facility] NOTE: LOCAL TITLE: [facility] TELEPHONE NOTE STANDARD TITLE: [facility] NOTE DATE OF NOTE: MAY 17, 2023@13:58 ENTRY DATE: MAY 17, 2023@13:58:41 AUTHOR: KERI HUNTER COSIGNER: URGENCY: STATUS: COMPLETED S:Called DILIA MENDOZA PHONE NUMBER [CELLULAR] - PATIENT PHONE - [phone] TelePhone visit w SGayla Martins regarding U/S results. He does not c/o neck pain and she reports the nodules seems to be intermittent. O: NECK SOFT TISSUE Exm Date: MAY 17, 2023@13:14 Req Phys: RAMONA HUNTER Pat Loc: CWM/NO/HBPC/PACT 2/SRN (Req'g Img Loc: [facility] 1 Service: Unknown (Case [id number] COMPLETE) NECK SOFT TISSUE (RAD Detailed) CPT:19329 Reason for Study: evaluate soft mobile nodules to left thyroid area Clinical History: Please also send to lab Report Status: Verified Date Reported: MAY 17, 2023 Date Verified: MAY 17, 2023 Estate Planning Attorney E-Sig:/ES/MORENA RUIZ JR Report: Study: AP and [...] lower cervical spine, as described above. A/P: >DDD C/S: no c/o neck pain. >nodule: thyroid U/S ordered for further eval, labs to also be completed at time of appointment. Time spent: 9 min Upcoming Appointments: 05/23/2023 13:00 CWM/NO/COMP PEN AUDIO 10/04/2023 14:00 CWM/NO/AUDIOLOGY/DIAGNOST 10/04/2023 15:30 NHM/OPTOMETRY/BORASKI (x)medications reconciled No barriers; Patient/family understands and agrees to [...] documented in this note. /lalo/ RAMONA HUNTER RN,MSN,COMPUTER SYSTEMS DESIGN ANALYST-C [facility] NURSE PRACTITIONER Signed: 05/18/2023 13:43 Receipt Acknowledged By: 05/18/2023 13:53 /es/ JODI SUTTON RN [facility] pack worker KERI HUNTER [facility]
--- OUTSIDE RECORDS SUMMARY | 2024-03-07 06:45 | XMS_ITS | Encounter Summary ---
Author Name [facility] [place] [place] Organization [facility] [place] Address [address] [place] [id number] Care Team Providers Care Steam Flattener Name Role Phone RAMONA HUNTER Primary Care Provider Unav ailable FABI BLEDSOE Unavailable Unavailable DON DIAZ Unavailable Unavailable CHAPUT, JOSHUA Unavailable Unavailable RAIVEL, KATIANA Unavailable Unavailable FEILEN, AYAKA Unavailable Unavailable ÁNGEL, SAUL Unavailable Unavailable HARNIDER, FRANK Unavailable Unavailable Insurance Providers: All historical [...] PART B Feb 27, 2017 PART B [phone] [id number] WILGUS,GUSTAVO NRY PATIENT MEDICARE (WNR) MEDICARE (M) PART B Feb 27, 2017 PART B [id number] WILGUS,GUSTAVO NRY PATIENT MEDICARE (WNR) MEDICARE (M) PART A Feb 27, 2001 PART A [id number] WILGUS,HE NRY PATIENT MEDICARE (WNR) MEDICARE (M) PART A Feb 27, 2001 PART A [id number] WILGUS,HE NRY PATIENT Selected Encounter This section includes the information on record at [place] for the Encounter. Date/Time Encounter Type Encounter Description Reason Provider Source Apr 27, 2023 11:17 AM Outpatient Encounter TELEPHONE/GERIATRIC DEBBIE CAMPOVERDE IHYg Encounter Template Text not used by ID [...] 17, 2023 01:30 PM AMBULATORY - NONE [place] [facility] [place] [facility] May 23, 2023 11:00 AM AMBULATORY - REHAB MEDICIN E [place] [facility] [place] [facility] May 23, 2023 01:00 PM AMBULATORY - MEDICINE [place] [facility] [place] [facility] May 23, 2023 03:00 PM AMBULATORY - NONE [place] [facility] [place] [facility] July 11, 2023 01:45 PM AMBULATORY - MEDICINE ID [facility] [place] [place] [facility] Oct 04, 2023 02:00 PM AMBULATORY - REHAB MEDICIN E [facility] [place] [facility] Oct 04, 2023 03:00 PM AMBULATORY - MEDICINE ID [facility] [place] [place] [facility] Oct 04, 2023 03:30 PM AMBULATORY - MEDICINE ID [facility] [place] [place] [facility] Oct 04, 2023 04:15 PM AMBULATORY - MEDICINE ID [facility] [place] [facility] Lab Results: +/- 30 days [...] Range Comment May 23, 2023 02:11 PM [facility] [place] [facility] THYROID T4 FREE(FT4) Specimen Type: SERUM No comment entered. Ordering Provider: Alex HUNTER Report Released Date/Time: May 11, 2023 02:45 PM Reporting Lab: [facility] [place] [facility] [address] [facility] [address] Performing Lab: [facility] [place] [facility] [address] [facility] [address] THYROID T4 FREE(FT4) 1.03 ng/dL 0.6-1.6 May 23, 2023 02:11 PM [facility] [place] [facility] THYROID TOTAL T3 Specimen Type: SERUM No comment entered. Ordering Provider: Alex HUNTER Report Released Date/Time: May 11, 2023 02:45 PM Reporting Lab: [facility] [place] [facility] [address] [facility] [address] Performing Lab: [facility] [place] [facility] [address] [facility] [address] THYROID TOTAL T3 75.21 ng/dL 35-193 May 23, 2023 02:11 PM [facility] [place] [facility] TSH Specimen Type: SERUM No comment entered. Ordering Provider: Alex HUNTER Report Released Date/Time: May 11, 2023 02:45 PM Reporting Lab: [facility] [place] [facility] [address] [facility] [address] Performing Lab: [place] [facility] [place] [facility] [address] [facility] [address] TSH 4.54 u[IU]/mL 0.35-5.00 May 23, 2023 02:11 PM [facility] [place] [facility] PT & INR (PROTIME) Specimen Type: PLASMA No comment entered. Ordering Provider: Alex HUNTER Report Released Date/Time: May 11, 2023 02:45 PM Reporting Lab: [facility] [place] [facility] [address] [facility] [address] Performing Lab: [facility] [place] [address] [address] INR 1.0 PROTIME 11.8 s 10.0-13.1 May 23, 2023 02:11 PM [facility] CBC AND DIFF (AUTO) Specimen Type: BLOOD No comment entered. Ordering Provider: Alex HUNTER Report Released Date/Time: May 11, 2023 02:45 PM Reporting Lab: [facility] [address] [facility] [address] Performing Lab: [facility] [address] [facility] [address] WBC 6.36 10*3/uL 4.50-11.00 RBC 4.94 10*6/uL 4.23-5.66 HGB 14.7 g/dL 12.8-17 HCT 42.9 39.2-50.4 MCV 86.8 fL 82-99 MCHC 34.3 g/dL 30.8-35.1 PLT 226 10*3/uL 140-360 RDW-CV 13.2 12.0-16.0 [place], Abs 0.47 10*3/uL 0.30-1.10 MCH 29.8 pg 26.2-32.6 Neut % 69.4 43.7-75.8 Lymph % 21.5 14.0-42.3 [place] % 7.4 5.1-13.7 Eos % 0.6 0.4-6.8 [...] 14, 2022 12:15 PM VA-TOBACCO NEVER USED [facility] Tobacco Use History This section includes a history of the smoking, or tobacco-related health factors, that were collected on or before the date of the Encounter. The data comes from the [place] facility where the Encounter took place. Date/Time Smoking Status/Tobacco Use Comment Dane acility Jan 10, 2019 10:51 AM VA-TOBACCO NEVER USED [facility] Advance Directives: All historical and current [...] 2023 01:54 PM ULTRASOUND THYROID: DILIA CLINE [id number] -1935 M Exm Date: MAY 23, 2023@13:54 Req Phys: RAMONA HUNTER Loc: CWM/NO/HBPC/PACT 2/SNP (Req'g Img Loc: ULTRASOUND Service: Unknown (Case [id number] COMPLETE) ULTRASOUND THYROID (US Detailed) CPT:39837 Reason for Study: evalute soft mobile nodules to left thyroid area Clinical History: patient will be in [place] 05/22 so this day is preferred Report Status: Verified Date Reported: MAY 23, 2023 Date Verified: MAY 23, 2023 Hand Plug Shaper E-Sig:/ES/MORENA RUIZ JR Report: Study: Thyroid ultrasound. [...] Committee. Mariselsler et al., Journal of the [place] [employer] 2017;14:587-595. Primary Diagnostic Code: No immediate attention required Primary Interpreting Staff: MORENA RUIZ JR, Radiologist (Hand Plug Shaper) /MORENA CAMPBELL JR [place] [facility] May 17, 2023 01:14 PM NECK SOFT TISSUE: DILIA CLINE [id number] -1935 M [facility] Date: MAY 17, 2023@13:14 Req Phys: RAMONA HUNTER Pat Loc: CWM/NO/HBPC/PACT 2/SRN (Req'g Img Loc: [facility] 1 Service: Unknown (Case [id number] COMPLETE) NECK SOFT TISSUE (RAD Detailed) CPT:08125 Reason for Study: evaluate soft mobile nodules to left thyroid area Clinical History: Please also send to lab Report Status: Verified Date Reported: MAY 17, 2023 Date Verified: MAY 17, 2023 Hand Plug Shaper E-Sig:/ES/MORENA RUIZ JR Report: Study: AP and [...] Primary Interpreting Staff: MORENA RUIZ JR, Radiologist (Hand Plug Shaper) /MORENA CAMPBELL JR [facility] [place] [facility] Encounter Notes: All associated encounter notes This section contains the clinical notes associated to the Encounter. Date/Time Encounter Note(s) Provider Source Apr 27, 2023 11:17 AM GERIATRIC MEDICINE NOTE: LOCAL TITLE: PERSONAL CARE SERVICES CASE MIX TOOL STANDARD TITLE: GERIATRIC MEDICINE NOTE DATE OF NOTE: APR 27, 2023@11:17:15 ENTRY DATE: APR 27, 2023@11:17:15 AUTHOR: MARJORIE FAY COSIGNER: URGENCY: STATUS: COMPLETED HCBS Case Mix & Budget Tool (CASE MIX) Date Given: 04/27/2023 Clinician: Marjorie Fay [facility]: [facility] [place] Rn [place]: Dilia Cline SSN: [id number] : Mar ([birth year]) Gender: Man Type of Evaluation: 6 month Anticipated Start Date: 04/27/2023 Anticipated Length of Service: 12 months Case Mix Level: K ADL Category: High Questions and Answers: Q1. DRESSING *2 Need some help from another person to put your clothes on. Q2. GROOMING *2 Needs and get daily help from another person. Q3. BATHING *4 Need and get help washing and drying your body. Q4. EATING *2 Need and get help in cutting food, buttering bread or arranging food. Q5. BED MOBILITY 0 Can move in bed without any help. Q6. TRANSFERRING *2 Need one other person to help you. Q7. WALKING *2 Need and get help from one person to help you walk. Q8. BEHAVIOR 1 Occasional staff intervention / anxious, irritable, lethargic, demanding / responds to cues. Q9. COMMUNICATION 0 Understood. Q10. TOILETING *2 Have accidents sometimes, but not more than once a week. Q11. MDS HC 2.0/CPS Cognitive Skill for Daily Decision Making 3 Severely Impaired - never/rarely made decisions. Q12. MDS 2.0/CPS: Short Term Memory (recall of what was learned or known) 1 Memory problem Q13. SPECIAL TREATMENTS 2 One or more [place] such as: 10. Skin Care Q14. CLINICAL MONITORING 2 All shifts Q15. SPECIAL NURSING No Q16. 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 SOURCES 2. Informant, 3. Medical Record // Marjorie Fay RN RN Signed: 04/27/2023 11:18 MARJORIE FAY [facility]
--- OUTSIDE RECORDS SUMMARY | 2024-03-07 06:45 | XMS_ITS | Encounter Summary ---
Author Name [facility] [place] Organization [facility] [place] Address [address] [place] [id number] Care Team Providers Care Bottom Sander Name Role Phone RAMONA HUNTER Primary Care [...] PART B Feb 27, 2017 PART B [id number] WILGUS,GUSTAVO NRY PATIENT MEDICARE (WNR) MEDICARE (M) PART B Feb 27, 2017 PART B [id number] WILGUS,GUSTAVO NRY PATIENT MEDICARE (WNR) MEDICARE (M) PART A Feb 27, 2001 PART A [id number] [phone] WILGUS,HE NRY PATIENT MEDICARE (WNR) MEDICARE (M) PART A Feb 27, 2001 PART A [id number] WILGUS,HE NRY PATIENT Selected Encounter This section includes the information on record at [place] for the Encounter. Date/Time Encounter Type Encounter Description Reason Pro vider Source Apr 27, 2023 11:18 AM Outpatient Encounter TELEPHONE/GERIATRICS IHE Encounter Template Text not used by [place] Plan of Treatment: Future Appointments (+ 6 months) and Future Tests (+/- 45 days) The Plan of Treatment section includes future care activities for the patient from all [place] treatmentfacilities. This section includes future appointments and [...] 17, 2023 01:30 PM AMBULATORY - NONE [place] [facility] [place] [facility] May 23, 2023 11:00 AM AMBULATORY - REHAB [place]ICIN [place] [facility] [place] [facility] May 23, 2023 01:00 PM AMBULATORY - MEDICINE [place] [facility] [facility] [facility] May 23, 2023 03:00 PM AMBULATORY - NONE [place] [facility] [facility] July 11, 2023 01:45 PM AMBULATORY - MEDICINE [place] [facility] [place] [facility] Oct 04, 2023 02:00 PM AMBULATORY - REHAB MEDICIN E [place] [facility] [place] [facility] Oct 04, 2023 03:00 PM AMBULATORY - MEDICINE [place] [facility] [place] [facility] Oct 04, 2023 03:30 PM AMBULATORY - MEDICINE [place] [facility] [facility] Oct 04, 2023 04:15 PM AMBULATORY - MEDICINE [place] [facility] [place] [facility] Lab Results: +/- 30 days of the encounter This section includes the Chemistry and Hematology Lab Results on record with [place] for the patient. Radiology Reports and Pathology Reports are provided separately, in subsequent sections. Lab Results This section contains the Chemistry/Hematology Results that were resulted 30 days before or 30 daysafter the date of the Encounter. Date/Time Source Result Type Result - Unit Interpretation Reference Range Comment May 23, 2023 02:11 PM [place] [facility] [place] [facility] THYROID T4 FREE(FT4) Specimen Type: SERUM No comment entered. Ordering Provider: Alex HUNTER Report Released Date/Time: May 11, 2023 02:45 PM Reporting Lab: [place] [facility] [place] [facility] [address] [facility] [address] Performing Lab: [place] [facility] [facility] [address] [facility] [address] THYROID T4 FREE(FT4) 1.03 ng/dL 0.6-1.6 May 23, 2023 02:11 PM [facility] THYROID TOTAL T3 Specimen Type: SERUM No comment entered. Ordering Provider: Alex HUNTER Report Released Date/Time: May 11, 2023 02:45 PM Reporting Lab: [place] [facility] [facility] [address] [facility] [address] Performing Lab: [facility] [address] [facility] [address] THYROID TOTAL T3 75.21 ng/dL 35-193 May 23, 2023 02:11 PM [facility] TSH Specimen Type: SERUM No comment entered. Ordering Provider: Alex HUNTER Report Released Date/Time: May 11, 2023 02:45 PM Reporting Lab: [place] [facility] [facility] [address] [facility] [address] Performing Lab: [facility] [address] [facility] [address] TSH 4.54 u[IU]/mL 0.35-5.00 May 23, 2023 02:11 PM [facility] PT & INR (PROTIME) Specimen Type: PLASMA No comment entered. Ordering Provider: Alex HUNTER Report Released Date/Time: May 11, 2023 02:45 PM Reporting Lab: [place] [facility] [place] [facility] [address] [facility] [address] Performing Lab: [facility] [address] [address] INR 1.0 PROTIME 11.8 s 10.0-13.1 May 23, 2023 02:11 PM [facility] CBC AND DIFF (AUTO) Specimen Type: BLOOD No comment entered. Ordering Provider: Alex HUNTER Report Released Date/Time: May 11, 2023 02:45 PM Reporting Lab: [facility] [address] [facility] [address] Performing Lab: [facility] [address] [facility] [address] WBC 6.36 10*3/uL 4.50-11.00 RBC 4.94 10*6/uL [...] 10, 2019 10:51 AM VA-TOBACCO NEVER USED [facility] Advance Directives: All historical and current [...] the Encounter. The data comes from all [place] treatment facilities. Date/Time Radiology Report Provider Source May 23, 2023 01:54 PM ULTRASOUND THYROID: DILIA MENDOZA [id number] -1935 M Ex Date: MAY 23, 2023@13:54 Req Phys: RAMONA HUNTER Loc: CWM/NO/HBPC/PACT 2/SNP (Req'g Img Loc: ULTRASOUND Service: Unknown (Case [id number] COMPLETE) ULTRASOUND THYROID (US Detailed) CPT:00217 Reason for Study: evalute soft mobile nodules to left thyroid area Clinical History: patient will be in [place] 05/22 so this day is preferred Report Status: Verified Date Reported: MAY 23, 2023 Date Verified: MAY 23, 2023 Gas Desulfurizer E-Sig:/ES/MORENA RUIZ JR Report: Study: Thyroid ultrasound. [...] Committee. Mariselsler et al., Journal of the [employer] 2017;14:587-595. Primary Diagnostic Code: No immediate attention required Primary Interpreting Staff: MORENA RUIZ JR, Radiologist (Gas Desulfurizer) /MORENA CAMPBELL JR [place] [facility] [facility] May 17, 2023 01:14 PM NECK SOFT TISSUE: DILIA MENDOZA [id number] -1935 M Ex Date: MAY 17, 2023@13:14 Req Phys: RAMONA HUNTER Loc: CWM/NO/HBPC/PACT 2/SRN (Req'g Img Loc: [facility] 1 Service: Unknown (Case [id number] COMPLETE) NECK SOFT TISSUE (RAD Detailed) CPT:61973 Reason for Study: evaluate soft mobile nodules to left thyroid area Clinical History: Please also send to lab Report Status: Verified Date Reported: MAY 17, 2023 Date Verified: MAY 17, 2023 Gas Desulfurizer E-Sig:/ES/MORENA RUIZ JR Report: Study: AP and [...] Primary Interpreting Staff: MORENA RUIZ JR, Radiologist (Gas Desulfurizer) /MORENA CAMPBELL JR [place] [facility] [facility] Encounter Notes: All associated encounter notes This section contains the clinical notes associated to the Encounter. Date/Time Encounter Note(s) Provider Source Apr 27, 2023 11:18 AM SOCIAL WORK NOTE: LOCAL TITLE: PERSONAL CARE SERVICES REVIEW STANDARD TITLE: SOCIAL WORK NOTE DATE OF NOTE: APR 27, 2023@11:18 ENTRY DATE: APR 27, 2023@11:18:58 AUTHOR: KRISTAL FAY COSIGNER: URGENCY: STATUS: COMPLETED Personal Care Services Review Type of review: 180 Day Information to complete oversight obtained from: Review of medical record Review of [employer] vendor submitted documentation 's surrogate/caregiver Specify Contact: Lakshmi [employer] vendor Name: Leilani Chapin [employer] vendor point of contact Name: Wally Godinez The care plan has been reviewed. Care rendered as authorized. Patient Satisfaction: How satisfied is the [place] with their community vendor? Completely How satisfied is the [place] with their child caregiver private home(s)? Completely How successful is the program in meeting the [place]'s needs/assisting them to stay at home? Completely The [place] feels safe with personal care services provided to them. meets administrative eligibility criteria. [place] meets clinical eligibility criteria. Case Mix Tool: Date Completed: Mar Case Mix Score: K First range of hours to be used. Plan: Authorization(s) to remain the same Homemaker/Home Health Aide Standardized Episode of Care (SEOC) SEOC duration: 365 days Hours per SEOC duration: [id number]/week Respite Standardized Episode of Care (SEOC) SEOC duration: 365 days Hours per SEOC duration: 9hrs/week Date of next review: 10/07/2023 /bettye Fay RN, RN Signed: 04/27/2023 11:21 KRISTAL FAY [facility]
--- OUTSIDE RECORDS SUMMARY | 2024-03-07 06:45 | XMS_ITS | Encounter Summary ---
Author Name [facility] [place] Organization [place] Address [address] [place] [address] Care Team Providers Care Fire Warden Name Role Phone RAMONA HUNTER Primary Care [...] PART B Feb 27, 2017 PART B [id number] REJI,GUSTAVO NRY PATIENT MEDICARE (WNR) MEDICARE (M) PART B Feb 27, 2017 PART B [id number] REJI,GUSTAVO NRY PATIENT MEDICARE (WNR) MEDICARE (M) PART A Feb 27, 2001 PART A [id number] WILGUS,HE NRY PATIENT MEDICARE (WNR) MEDICARE (M) PART A Feb 27, 2001 PART A [id number] [phone] GUSTAVO MENDOZA PATIENT Selected Encounter This section includes the information on record at [place] for the Encounter. Date/Time Encounter Type Encounter Description Reason Provider Source May 18, 2023 01:00 PM [facility]CP-SERV OF OT,EA 15 MIN HBPC - THERAPIST ICD-10-CM R26.9 Unspecified abnormalities of gait and mobility LACIE ORLANDO IHE Encounter Template Text not used by [place] Assessments - Encounter Diagnoses This section includes the primary and secondary diagnoses documented for the Encounter. Date/Time Primary/Secondary Diagnosis Diagnosis Name Provider Source May 20, 2023 02:22 PM PRIMARY Unspecified abnormalities of gait and mobility LACIE ORLANDO [place] [facility] [facility] Plan of Treatment: Future Appointments (+ 6 months) and Future Tests (+/- 45 days) The Plan of Treatment section includes future care activities for the patient [facility] [place] [facility] This section includes future appointments and future [...] 11:00 AM AMBULATORY - REHAB MEDICIN E [place] [facility] [place] [facility] May 23, 2023 01:00 PM AMBULATORY - MEDICINE [place] [facility] May 23, 2023 03:00 PM AMBULATORY - NONE [place] [facility] [place] [facility] July 11, 2023 01:45 PM AMBULATORY - MEDICINE [place] [facility] Oct 04, 2023 02:00 PM AMBULATORY - REHAB MEDICIN E [place] [facility] [place] [facility] Oct 04, 2023 03:00 PM AMBULATORY - MEDICINE [place] [facility] Oct 04, 2023 03:30 PM AMBULATORY - MEDICINE [place] [facility] Oct 04, 2023 04:15 PM AMBULATORY - MEDICINE [place] [facility] Lab Results: +/- 30 days of [...] Range Comment May 23, 2023 02:11 PM [place] [facility] [facility] THYROID T4 FREE(FT4) Specimen Type: SERUM No comment entered. Ordering Provider: Alex HUNTER Report Released Date/Time: May 11, 2023 02:45 PM Reporting Lab: [place] [facility] [facility] [address] [facility] [address] Performing Lab: [place] [facility] [facility] [address] [facility] [address] THYROID T4 FREE(FT4) 1.03 ng/dL 0.6-1.6 May 23, 2023 02:11 PM [facility] [place] [facility] THYROID TOTAL T3 Specimen Type: SERUM No comment entered. Ordering Provider: Alex HUNTER Report Released Date/Time: May 11, 2023 02:45 PM Reporting Lab: [place] [facility] [facility] [address] [facility] [address] Performing Lab: [place] [facility] [facility] [address] [facility] [address] THYROID TOTAL T3 75.21 ng/dL 35-193 May 23, 2023 02:11 PM [facility] [place] [facility] TSH Specimen Type: SERUM No comment entered. Ordering Provider: Alex HUNTER Report Released Date/Time: May 11, 2023 02:45 PM Reporting Lab: [place] [facility] [facility] [address] [facility] [address] Performing Lab: [place] [facility] [facility] [address] [facility] [address] TSH 4.54 u[IU]/mL 0.35-5.00 May 23, 2023 02:11 PM [facility] [place] [facility] PT & INR (PROTIME) Specimen Type: PLASMA No comment entered. Ordering Provider: Alex HUNTER Report Released Date/Time: May 11, 2023 02:45 PM Reporting Lab: [place] [facility] [facility] [address] [facility] [address] Performing Lab: [facility] [address] [facility] [address] INR 1.0 PROTIME 11.8 s 10.0-13.1 May 23, 2023 02:11 PM [facility] CBC AND DIFF (AUTO) Specimen Type: BLOOD No comment entered. Ordering Provider: Alex HUNTER Report Released Date/Time: May 11, 2023 02:45 PM Reporting Lab: [facility] [address] [facility] [address] Performing Lab: [facility] [address] [facility] [address] WBC 6.36 10*3/uL 4.50-11.00 RBC 4.94 10*6/uL 4.23-5.66 HGB 14.7 g/dL 12.8-17 HCT 42.9 39.2-50.4 MCV 86.8 fL 82-99 MCHC 34.3 g/dL 30.8-35.1 PLT 226 10*3/uL 140-360 RDW-CV 13.2 12.0-16.0 [place], Abs 0.47 10*3/uL 0.30-1.10 MCH 29.8 pg 26.2-32.6 Neut % 69.4 43.7-75.8 Lymph % 21.5 14.0-42.3 [place] % 7.4 5.1-13.7 Eos % 0.6 0.4-6.8 [...] 2022 12:15 PM VA-TOBACCO NEVER USED [facility] Tobacco Use History This section includes a history of the smoking, or tobacco-related health factors, that were collected on or before the date of the Encounter. The data comes from the [place] facility where the Encounter took place. Date/Time Smoking Status/Tobacco Use Comment Dane acility Jan 10, 2019 10:51 AM VA-TOBACCO NEVER USED [facility] Advance Directives: All historical and current [...] 2023 01:54 PM ULTRASOUND THYROID: DILIA MENDOZA [id number] -1935 M Exm Date: MAY 23, 2023@13:54 Req Phys: RAMONA HUNTER Loc: CWM/NO/HBPC/PACT 2/SNP (Req'g Img Loc: ULTRASOUND Service: Unknown (Case [id number] COMPLETE) ULTRASOUND THYROID (US Detailed) CPT:68680 Reason for Study: evalute soft mobile nodules to left thyroid area Clinical History: patient will be in [place] 05/22 so this day is preferred Report Status: Verified Date Reported: MAY 23, 2023 Date Verified: MAY 23, 2023 Gate Watch E-Sig:/ES/MORENA RUIZ JR Report: Study: Thyroid ultrasound. [...] Committee. Mariselsler et al., Journal of the [place] [employer] 2017;14:587-595. Primary Diagnostic Code: No immediate attention required Primary Interpreting Staff: MORENA RUIZ JR, Radiologist (Gate Watch) /MORENA CAMPBELL JR [place] [facility] [place] [facility] May 17, 2023 01:14 PM NECK SOFT TISSUE: DILIA MENDOZA [id number] -1935 M [facility] Date: MAY 17, 2023@13:14 Req Phys: RAMONA HUNTER Loc: CWM/NO/HBPC/PACT 2/SRN (Req'g Img Loc: [facility] 1 Service: Unknown (Case [id number] COMPLETE) NECK SOFT TISSUE (RAD Detailed) CPT:22173 Reason for Study: evaluate soft mobile nodules to left thyroid area Clinical History: Please also send to lab Report Status: Verified Date Reported: MAY 17, 2023 Date Verified: MAY 17, 2023 [employer] Watch E-Sig:/ES/MORENA RUIZ JR Report: Study: AP and [...] Primary Interpreting Staff: MORENA RUIZ JR, Radiologist (Gate Watch) /MORE[facility] CAMPBELL JR [facility] Encounter Notes: All associated encounter notes This section contains the clinical notes associated to the Encounter. Date/Time Encounter Note(s) Provider Source May 18, 2023 01:00 PM [facility] ANNUAL EVALUATION NOTE: LOCAL TITLE: [facility] OCCUPATIONALTHERAPY ANNUAL HOME SAFETY EVALUAT STANDARD TITLE: [facility] ANNUAL EVALUATION NOTE DATE OF NOTE: MAY 18, 2023@13:00 ENTRY DATE: MAY 20, 2023@14:08:37 AUTHOR: LACIE ORLANDO COSIGNER: URGENCY: STATUS: COMPLETED Occupational Therapy Assessment ( )Initial (X)Annual ( )Other Date: 05/18/2023 Time: 1:00-1:45 pm PATIENT IDENTIFIERS (2): FULL NAME X Facial Recognition: X Diagnosis: White Matter Disease, unspecified(ICD-10-CM R90.82) PMH: Active problems - Computerized Problem List is the source for the followin. Hiccups 2. 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 Cognitive impairment 6. Actinic keratosis 7. Primary hypertension 8. Disorder of meniscus of knee s/p surgery on tanya knees 9. 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 Erectile dysfunction 11. SS - Spinal stenosis 12. Cat. - Cataract R 13. HL - Hearing loss WHAT MATTERS What Matters was addressed at this visit. Comment: keeping safe MOBILITY -------- Mobility was addressed at this visit. Comment: -HLM score 7 VITALS: not formally assessed; no symptoms of illness or injury SOCIAL HISTORY/DEMOGRAPHICS: [place] lives in mobile home with girlfriend and girlfriend's mother. INSIGHTS STRATEGIST assists daily. He is not left alone. Watches TV much of the day. SUBJECTIVE: pleasant, talkative, joking often COGNITIVE STATUS: alert, follows simple instructions; forgetful, repetitive PAIN: no FALLS: no OBJECTIVE: is an 88 yo male that was seen by Occupational Therapy for annual home safety evaluation and assess need for adaptive equipment. PHYSICAL ASSESSMENT OF ROM/MMT: WFL, ~4/5 FUNCTIONAL TRANSFERS: modified independent; walker, grab bars FUNCTIONAL MOBILITY: transfers and ambulates ad arcelia with walker; assist to leave home SELFCARE Dressing: set-up, verbal cues and assistance of 1 Bathing: set up, contact guard for transfers and assist of 1 for showers- may benefit from a shower seat with arms; also suggested removing shower doors and replacing with a curtain might provide easier access Toileting: able to toilet self and is reportedly continent- girlfriend interested in bedside commode and portable commode option for community outings Eating: feeds self with set-up HOME SAFETY CHECKLIST: Type of Home - mobile home Stairs to enter - stair, porch, 3 stairs rear; 4 stairs one rail at front Stairs in the home - no Railings at all stair locations - from porch to mobile home Lighting (y = safe; n = not safe) Stairs - y Bathroom - y Kitchen - y General -y Floor type Bathroom - laminate Kitchen - laminate General - carpet Appropriate Shoes - yes Bathtub/Shower Type - step in shower Toilet Type - commode over toilet Kitchen - open Clutter - no Cleanliness - yes Clear Walking Paths - yes Throw Rugs - no Medications Stored Properly - n/a Smoke Detectors/CO Detectors working - yes Outside home environment - pavement/lawn Smoking - no Oxygen - no Oxygen Safety (if above is yes, reviewed with patient) Oxygen Sign Posted on Front Door No Open Flames 10/10 Rule Oxygen Tank Storage No Petroleum Products On/Near Face How does the patient/client best learn? verbal, visual cues Does the patient/client have any cultural and presybeterian beliefs, emotional barriers, physical or cognitive limitations, and communication barriers which may impact his/her ability to learn? cognitive decline Desire and motivation to learn? yes Other Safety: Telephone: cell phone use by caregivers- not left alone Tripping/safety hazards: no Emergency: Guardian Alert EQUIPMENT: walker, commode, transport wheelchair, gait belt PATIENT EDUCATION: caregiver education regarding shower seat options, grab bars Assessment/Recommendations: participates in his care with support from caregivers. He requires set up, cues and assist of 1 to complete personal care. He requires contact guard for shower transfers and to leave home, otherwise requires supervision. He is not left alone and girlfriend Lakshmi oversees his care. She reports she has put his name in the [facility] and feels this might be an appropriate placement in a few months due to his care needs. [place] would benefit from a shower seat with arms and a portable bedside commode. will: 1). receive and use shower seat with arms. 2). receive and use portable bedside commode. Plan: OT to order equipment as outlined above and follow up as needed. The practitioner's co-signature on this note signifies agreement with plan of care and clinical diagnosis code. /lalo/ Lacie Orlando [facility] Occupational Therapist Signed: 05/20/2023 14:22 Receipt Acknowledged By: 05/22/2023 09:05 /lalo/ RAMONA HUNTER RN,MSN,[employer] FINISHER-C [facility] NURSE PRACTITIONER LACIE ORLANDO [place] [facility]
--- OUTSIDE RECORDS SUMMARY | 2024-03-07 06:45 | XMS_ITS | Encounter Summary ---
Author Name [facility] [place] Organization [place] Address [address] [place] [id number] Care Team Providers Care Partner Marketing Intern Name Role Phone RAMONA HUNTER Primary Care [...] PART B Feb 27, 2017 PART B [id number] ARONGUS,GUSTAVO NRY PATIENT MEDICARE (WNR) MEDICARE (M) PART B Feb 27, 2017 PART B [id number] ARONGUS,GUSTAVO NRY PATIENT MEDICARE (WNR) MEDICARE (M) PART A Feb 27, 2001 PART A [id number] WILGUS,GUSTAVO NRY PATIENT MEDICARE (WNR) MEDICARE (M) PART A Feb 27, 2001 PART A [id number] WILGUS,HE NRY PATIENT Selected Encounter This section includes the information on record at [place] for the Encounter. Date/Time Encounter Type Encounter Description Reason Pro vider Source 2023 12:00 PM Outpatient Encounter COMMUNITY CARE [...] 17, 2023 01:30 PM AM[place]UL[facility] - NONE [place] [facility] May 23, 2023 11:00 AM AMBULATORY - [place]ICIN E [place] [facility] May 23, 2023 01:00 PM AM[place]UL[place] - [place]ICINE [place] [facility] May 23, 2023 03:00 PM AMBULATORY - NONE [place] [facility] [place] [facility] July 11, 2023 01:45 PM AMBULATORY - [place]ICINE [place] C [facility] Lab Results: +/- 30 days of the encounter This section includes the Chemistry and Hematology Lab Results on record with [place] for the patient. Radiology Reports and Pathology Reports are provided separately, in subsequent sections. Lab Results This section contains the Chemistry/Hematology Results that were resulted 30 days before or 30 daysafter the date of the Encounter. Date/Time Source Result Type Result - Unit Interpretation Reference Range Comment Mar 20, 2023 01:10 PM [facility] THYROID T4 FREE(FT4) Specimen Type: SERUM No comment entered. Ordering Provider: Alex HUNTER Report Released Date/Time: Jan 23, 2023 09:45 AM Reporting Lab: [facility] [address] [facility] [address] Performing Lab: [facility] [address] [facility] [address] THYROID T4 FREE(FT4) 0.97 ng/dL 0.6-1.6 Mar 20, 2023 01:10 PM [facility] HEMOGLOBIN A1C PANEL Specimen Type: BLOOD Comment: Values obtained from A1C measurements can vary. For atypical A1C assays, a reported value of 7.0 could actually be between 6.72 and 7.28 if measured by a reference method. A reported value of 9.0 could actually be between 8.73 and 9.27. Ref: http://www.ngs p.org/CAPdata. asp Ordering Provider: Alex HUNTER Report Released Date/Time: Jan 02, 2023 02:18 PM Reporting Lab: [address] [address] Performing Lab: [address] [address] HEMOGLOBIN A1C 5.3 4.0-5.6 Mar 20, 2023 01:10 PM [facility] TSH Specimen Type: SERUM No comment entered. Ordering Provider: Alex HUNTER Report Released Date/Time: Jan 02, 2023 02:18 PM Reporting Lab: [address] [address] Performing Lab: [address] [address] TSH 5.18 u[IU]/mL H 0.35-5.00 Mar 20, 2023 01:10 PM [facility] BASIC METABOLIC PANEL (non-fasting) Specimen Type: SERUM No comment entered. Ordering Provider: Alex HUNTER Report Released Date/Time: Jan 02, 2023 02:18 PM Reporting Lab: [address] [address] Performing Lab: [address] [address] UREA NITROGEN 15 mg/dL 7-25 GLUCOSE 150 mg/dL H 65-100 SODIUM 137 mmol/L 135-145 POTASSIUM 4.8 mmol/L 3.5-5.0 CHLORIDE 103 mmol/L 100-110 CO2 28 meq/L 20-30 CREATININE, Serum 1.16 mg/dL 0.50-1.40 eGFR(CKD-EPI 2020) 61 mL/min >60 Social History: Smoking Status (Most current) and [...] 2022 12:15 PM VA-TOBACCO NEVER USED [place] [employer] Virtual TechnologiesKESSL[facility] Tobacco Use History This section includes a history of the smoking, or tobacco-related health factors, that were collected on or before the date of the Encounter. The data comes from the [place] facility where the Encounter took place. Date/Time Smoking Status/Tobacco Use Comment F acility Jan 10, 2019 10:51 AM VA-TOBACCO NEVER USED [facility] Advance Directives: All historical and current [...] the Encounter. Date/Time Encounter Note(s) Provider Source 2023 12:00 PM NONVA CONSULT: LOCAL TITLE: COMMUNITY CARE-CONSULT RESULT NOTE STANDARD TITLE: NONVA CONSULT DATE OF NOTE: 2023@12:00 ENTRY DATE: JUNE 30, 2023@14:05:33 AUTHOR: SB AGUILAR EXP COSIGNER: URGENCY: STATUS: COMPLETED VistA Imaging - Scanned Document [facility] 03/30- SCANNED DOCUMENT SIGNATURE NOT REQUIRED Electronically Filed: 06/30/2023 by: SB AGUILAR FARM MACHINERY ASSEMBLER SB AGUILAR [facility]
--- OUTSIDE RECORDS SUMMARY | 2024-03-07 06:45 | XMS_ITS ---
Author Name [facility] [place] Address [address] [place] [address] Care Team Providers Care Wirer Street Light Name Role Phone RAMONA HUNTER Primary Care [...] PART B Feb 27, 2017 PART B [id number] ARONGUS,GUSTAVO NRY PATIENT MEDICARE (WNR) MEDICARE (M) PART B Feb 27, 2017 PART B [id number] [phone] WILGUS,GUSTAVO NRY PATIENT MEDICARE (WNR) MEDICARE (M) PART A Feb 27, 2001 PART A [id number] WILGUS,HE NRY PATIENT MEDICARE (WNR) MEDICARE (M) PART A Feb 27, 2001 PART A [id number] WILGUS,HE NRY PATIENT Selected Encounter This section includes the information on record at [place] for the Encounter. Date/Time Encounter Type Encounter Description Reason Provider Source Mar 20, 2023 12:30 PM MEASURE BLOOD OXYGEN LEVEL [facility] Nursing (RN / LP) ICD-10-CM G30.9 Alzheimer's disease, unspecified JODI SUTTON Yg Encounter Template Text not used by [place] Assessments - Encounter Diagnoses This section includes the primary and secondary diagnoses documented for the Encounter. Date/Time Primary/Secondary Diagnosis Diagnosis Name Provider Source Mar 22, 2023 06:47 PM PRIMARY Alzheimer's disease, unspecified [facility] Mar 22, 2023 06:47 PM SECONDARY Dem in oth dis classd elswhr,unsp sev,w/o beh/psych/mood/an x JODI SUTTON [place] [facility] Mar 22, 2023 06:47 PM SECONDARY Unspecified hearing loss, bilateral [facility] Plan of Treatment: Future Appointments (+ 6 months) and Future Tests (+/- 45 days) The Plan of Treatment section includes future care activities for the patient [facility] [place] [facility] This section includes future appointments and future orders which are active, pending or scheduled. Future Appointments This section includes appointments that were scheduled to occur 6 months from the date of the Encounter, up to a maximum of 20 appointments. The data comes from all [place] treatment facilities. Appointment Date/Time Appointment Type Appointme nt Facility Name May 17, 2023 01:30 PM AMBULATORY - NONE [place] [facility] May 23, 2023 11:00 AM AMBULATORY - REHAB MEDICIN E [place] [facility] May 23, 2023 01:00 PM AMBULATORY - MEDICINE [place] [facility] May 23, 2023 03:00 PM AMBULATORY - NONE [place] [facility] July 11, 2023 01:45 PM AMBULATORY - [facility]INE [facility] Lab Results: +/- 30 days of the encounter This section includes the Chemistry and Hematology Lab Results on record with [place] for the patient. Radiology Reports and Pathology Reports are provided separately, in subsequent sections. Lab Results This section contains the Chemistry/Hematology Results that were resulted 30 days before or 30 daysafter the date of the Encounter. Date/Time Source Result Type Result - Unit Interpretation Reference Range Comment Mar 20, 2023 01:10 PM [facility] [place] [facility] THYROID T4 FREE(FT4) Specimen Type: SERUM No comment entered. Ordering Provider: Alex HUNTER Report Released Date/Time: Jan 23, 2023 09:45 AM Reporting Lab: [facility] [place] [facility] [address] [facility] [address] Performing Lab: [facility] [address] [facility] [address] THYROID T4 FREE(FT4) 0.97 ng/dL 0.6-1.6 Mar 20, 2023 01:10 PM [facility]AL[facility]N [facility] HEMOGLOBIN A1C PANEL Specimen Type: BLOOD Comment: [...] Jan 02, 2023 02:18 PM Reporting Lab: [facility] [place] [facility] [address] [facility] [address] Performing Lab: [facility]TRN [facility]ITAL[facility]ETS [facility] [address] [facility] [address] HEMOGLOBIN A1C 5.3 4.0-5.6 Mar 20, 2023 01:10 PM [facility] TSH Specimen Type: SERUM No comment entered. Ordering Provider: Alex HUNTER Report Released Date/Time: Jan 02, 2023 02:18 PM Reporting Lab: [facility]TRN [facility]ITALUSETS [facility] [address] [facility] [address] Performing Lab: [facility]TRN [facility]ITALUSETS [address] [address] TSH 5.18 u[IU]/mL H 0.35-5.00 Mar 20, 2023 01:10 PM [place] PokelaboR Sensor Medical TechnologyTRN The RealReal [facility] BASIC METABOLIC PANEL (non-fasting) Specimen Type: SERUM No comment entered. Ordering Provider: Alex HUNTER Report Released Date/Time: Jan 02, 2023 02:18 PM Reporting Lab: [place] [facility] MessagemindCOL[facility] [address] [facility] [address] Performing Lab: [facility] [address] [facility] [address] UREA NITROGEN 15 mg/dL 7-25 GLUCOSE 150 mg/dL H 65-100 SODIUM 137 mmol/L 135-145 POTASSIUM 4.8 mmol/L 3.5-5.0 CHLORIDE 103 mmol/L 100-110 CO2 28 meq/L 20-30 CREATININE, Serum 1.16 mg/dL 0.50-1.40 eGFR(CKD-EPI 2020) 61 mL/min >60 Vital Signs: All taken on the encounter date This section contains inpatient and outpatient Vital Signs collected on the date of the Encounter. Date/Time Temperature Pulse Blood Pressure Respiratory Rate SP02 Pain Height Weight Body Mass Index Source Mar 20, 2023 12:30 PM 97.4 73 110/60 16 99 0 188 26 [place] [employer] Sensor Medical TechnologyN [facility] Social History: Smoking Status (Most current) and Tobacco Use (All prior to encounter date) This section includes the most current, and the historical, smoking and tobacco- related health factors from the [place] facility where the Encounter took place. Current Smoking Status This section includes the most current smoking, or tobacco-related health factor, from the [place] facility where the Encounter took place. Date/Time Current Smoking Status Comment Facil ity Dec 14, 2022 12:15 PM VA-TOBACCO NEVER USED [place] [employer] Sensor Medical TechnologyN [employer] [facility] Tobacco Use History This section includes a history of the smoking, or tobacco-related health factors, that were collected on or before the date of the Encounter. The data comes from the [place] facility where the Encounter took place. Date/Time Smoking Status/Tobacco Use Comment F acility Jan 10, 2019 10:51 AM VA-TOBACCO NEVER USED [place] [employer] Sensor Medical TechnologyN TastyKhanaSOCORRO GENERAL HOSPITALGumGum [facility] Advance Directives: All historical and current Section Date Range: From patient's date of to the date document was created. This section includes ALL of a patient's completed or amended [place] Advance and Rescinded Directives. The entries below indicate that a directive exists for the patient, but an actual copy is not included with this document. The data comes from all [place] facilities. Date Advance Directives Provider Source Aug 14, 2020 ADVANCE DIRECTIVE CRISTOPHER BENITEZYg Encounter Notes: All associated encounter notes This section contains the clinical notes associated to the Encounter. Date/Time Encounter Note(s) Provider Source Mar 20, 2023 12:30 PM [facility] NURSING NOTE: LOCAL TITLE: [facility] RN PROGRESS NOTE STANDARD TITLE: [facility] NURSING NOTE DATE OF NOTE: MAR 20, 2023@12:30 ENTRY DATE: MAR 22, 2023@18:47:57 AUTHOR: RAÚL SUTTON COSIGNER: URGENCY: STATUS: COMPLETED Coronavirus Disease 2019 (COVID-19) Screen The patient was asked if in the last 14 days they have had new onset of any COVID-19 symptoms. They report the following: No symptoms Within the past 14 days, the patient reports no exposure to someone with a febrile/respiratory illness or someone with a known or suspected case of COVID-19 (within 6 feet for > 15 minutes). Result: Screen is negative. Nursing Progress Note Active and Recently Outpatient Medications (including Supplies): Active Outpatient Medications Status 1) CARBAMIDE PEROXIDE 6.5% OTIC SOLN INSTILL 5 DROPS ACTIVE INTO THE AFFECTED EAR(S) TWICE DAILY FOR EAR WAX BLOCKAGE 2) CARBOXYMETHYLCELLULOSE NA 0.5% OPH SOLN INSTILL [...] BY MOUTH ACTIVE THREE TIMES DAILY NEEDED 7 Total Medications MEDICATION REVIEW Medication review completed [...] 60 min Problem addressed for this visit: Ear irrigation and lab draw Specimen(s) collected during this visit: BMP, HGA1C, TSH, Free T4 Site: R ANTECUBITAL NURSING SUMMARY: Visit made to home for ear irrigation, lab draw and routine assessment. sitting in recliner finishing breakfast upon nurse arrival as he is a late raiser. Mother in law and FORMING MACHINE UPKEEP MECHANIC present for visit. [place] alert and oriented to self, pleasant and cooperative. Perseverating on memories from the past throughout the visit. ear irrigation performed with good effect. Nurse reviewed use of ear drops in preparation for maintenance ear irrigations with significant other Lakshmi, she voiced understanding. Venipuncture performed to right AC, tolerated well. Blood specimen obtained and [facility] to [facility] processing. stable, no acute findings this visit. VSS. No falls, No ER visits and NO hospitalizations. Blood Pressure: 110/60 (03/20/2023 12:30) Pulse: 73 (03/20/2023 12:30) Respiration: 16 (03/20/2023 12:30) Temperature: 97.4 F [36.3 C] (03/20/2023 12:30) Pain Score: 0 (03/20/2023 12:30) EXAMINATION: Lungs: clear throughout. No cough, no sob reported Edema: None HR: regular and strong Bowel/Bladder: regular bowel and bladder reported by caregiver. Denies UTI s/s. No constipation reported. Skin: dry and intact Home Safety FALLS NO INFECTIONS NO ER/HOSPITALIZATIONS NO Teaching/goals: see nursing summary above Patient verbalizes understanding to above and will call with any concerns or changes in condition. For emergent care call 911. Plan for next visit: Routine visit, ear irrigation, safety and care coordination. Next visit scheduled between April 27- /es/ JODI SUTTON RN [facility] marine service station attendant Signed: 03/22/2023 19:18 CRISTOBAL SUTTON CNTL [facility]ENTER[facility]
--- OUTSIDE RECORDS SUMMARY | 2024-03-07 06:45 | XMS_ITS | Encounter Summary ---
Author Name [facility] Organization [facility] [place] Address [address] [place] [id number] Care Team Providers Care Climatologist Name Role Phone RAMONA HUNTER Primary Care [...] PART B Feb 27, 2017 PART B [id number] ARONGUS,GUSTAVO NRY PATIENT MEDICARE (WNR) MEDICARE (M) PART B Feb 27, 2017 PART B [id number] WILGUS,GUSTAVO NRY PATIENT MEDICARE (WNR) MEDICARE (M) PART A Feb 27, 2001 PART A [id number] WILGUS,HE NRY PATIENT MEDICARE (WNR) MEDICARE (M) PART A Feb 27, 2001 PART A [id number] [phone] WILGUS,HE NRY PATIENT Selected Encounter This section includes the information on record at [place] for the Encounter. Date/Time Encounter Type Encounter Description Reason Provider Source Apr 28, 2023 01:30 PM MEASURE BLOOD OXYGEN LEVEL [facility] Nursing (RN / LP) ICD-10-CM G30.9 Alzheimer's disease, unspecified JODI SUTTON Yg Encounter Template Text not used by [place] Assessments - Encounter Diagnoses This section includes the primary and secondary diagnoses documented for the Encounter. Date/Time Primary/Secondary Diagnosis Diagnosis Name Provider Source May 03, 2023 08:41 AM PRIMARY Alzheimer's disease, unspecified JODI ZELAYA [place] [facility] [place] [facility] May 03, 2023 08:41 AM SECONDARY Dem in oth dis classd elswhr,unsp sev,w/o beh/psych/mood/anx JODI ZELAYA [place] [facility] [place] [facility] May 03, 2023 08:41 AM SECONDARY Hypertensive heart disease without heart failure JODI ZELAYA [place] [facility] [place] [facility] Plan of Treatment: Future Appointments (+ 6 months) and Future Tests (+/- 45 days) The Plan of Treatment section includes future care activities for the patient [facility] [place] [facility]. This section includes future appointments and future [...] 17, 2023 01:30 PM AMBULATORY - NONE [facility] [place] [facility] May 23, 2023 11:00 AM AMBULATORY - [place] MEDICIN E [place] [facility] [place] [facility] May 23, 2023 01:00 PM AMBULATORY - MEDICINE [place] [facility] [place] [facility] May 23, 2023 03:00 PM AMBULATORY - NONE [facility] [place] [facility] July 11, 2023 01:45 PM AMBULATORY - [place]ICINE [place] [facility] [place] [facility] Oct 04, 2023 02:00 PM AMBULATORY - [facility] MEDICIN E [facility] [place] [facility] Oct 04, 2023 03:00 PM [place]IC[place] [facility] [place] [facility] Oct 04, 2023 03:30 PM [place]ICINE [place] [facility] [place] [facility] Oct 04, 2023 04:15 PM [place]ORY - [place]ICINE [place] [facility] [place] [facility] Lab Results: +/- 30 days of the encounter This section includes the Chemistry and Hematology Lab Results on record with [facility] for the patient. Radiology Reports and Pathology Reports are provided separately, in subsequent sections. Lab Results This section contains the Chemistry/Hematology Results that were resulted 30 days before or 30 daysafter the date of the Encounter. Date/Time Source Result Type Result - Unit Interpretation Reference Range Comment May 23, 2023 02:11 PM [place] [facility] [place] [facility] THYROID T4 FREE(FT4) Specimen Type: SERUM No comment entered. Ordering Provider: Alex HUNTER Report Released Date/Time: May 11, 2023 02:45 PM Reporting Lab: [place] [facility] [place] [facility] [address] [facility] [address] Performing Lab: [place] [facility] [place] [facility] [address] [facility] [address] THYROID T4 FREE(FT4) 1.03 ng/dL 0.6-1.6 May 23, 2023 02:11 PM [place] [facility] [place] [facility] THYROID TOTAL T3 Specimen Type: SERUM No comment entered. Ordering Provider: Alex HUNTER Report Released Date/Time: May 11, 2023 02:45 PM Reporting Lab: [facility] [place] [facility] [address] [facility] [address] Performing Lab: [place] [facility] [place] [facility] [address] [facility] [address] THYROID TOTAL T3 75.21 ng/dL 35-193 May 23, 2023 02:11 PM [facility] [place] [facility] TSH Specimen Type: SERUM No comment entered. Ordering Provider: Alex HUNTER Report Released Date/Time: May 11, 2023 02:45 PM Reporting Lab: [facility] [place] [facility] [address] [facility] [address] Performing Lab: [facility] [address] [facility] [address] TSH 4.54 u[IU]/mL 0.35-5.00 May 23, 2023 02:11 PM [facility] PT & INR (PROTIME) Specimen Type: PLASMA No comment entered. Ordering Provider: Alex HUNTER Report Released Date/Time: May 11, 2023 02:45 PM Reporting Lab: [facility] [address] [address] Performing Lab: [address] [address] INR 1.0 PROTIME 11.8 s 10.0-13.1 May 23, 2023 02:11 PM [facility] CBC AND DIFF (AUTO) Specimen Type: BLOOD No comment entered. Ordering Provider: Alex HUNTER Report Released Date/Time: May 11, 2023 02:45 PM Reporting Lab: [facility] [address] [address] Performing Lab: [facility] [address] [address] WBC 6.36 10*3/uL 4.50-11.00 RBC 4.94 10*6/uL 4.23-5.66 HGB 14.7 g/dL 12.8-17 HCT 42.9 39.2-50.4 MCV 86.8 fL 82-99 MCHC 34.3 g/dL 30.8-35.1 PLT 226 10*3/uL 140-360 RDW-CV 13.2 12.0-16.0 [place], Abs 0.47 10*3/uL 0.30-1.10 MCH 29.8 pg 26.2-32.6 Neut % 69.4 43.7-75.8 Lymph % 21.5 14.0-42.3 [place] % 7.4 5.1-13.7 Eos % 0.6 0.4-6.8 [...] 75 130/84 16 99 0 188.9 26 [place] My Point...Exactly [facility] [facility] [employer] [facility]TRAN[facility]LV[facility] Social History: Smoking Status (Most current) [...] 14, 2022 12:15 PM VA-TOBACCO NEVER USED [place] [employer] [facility]...Exactly [facility] [facility] [facility]EL[facility] Direct [facility] Tobacco Use History This section includes a history of the smoking, or tobacco-related health factors, that were collected on or before the date of the Encounter. The data comes from the [place] facility where the Encounter took place. Date/Time Smoking Status/Tobacco Use Comment F acility Jan 10, 2019 10:51 AM VA-TOBACCO NEVER USED [facility] [facility] Comm[employer] TechnologiesELKVIEW [facility] Direct [facility] Advance Directives: All historical and [...] the Encounter. The data comes from all [place] treatment facilities. Date/Time Radiology Report Provider Source May 23, 2023 01:54 PM ULTRASOUND THYROID: DILIA MENDOZA [id number] M Exm Date: MAY 23, 2023@13:54 Req Phys: RAMONA HUNTER Loc: CWM/NO/[facility]/PACT 2/SNP (Req'g Img Loc: ULTRASOUND Service: Unknown (Case [id number] COMPLETE) ULTRASOUND THYROID (US Detailed) CPT:95514 Reason for Study: evalute soft mobile nodules to left thyroid area Clinical History: patient will be in [place] 05/22 so this day is preferred Report Status: Verified Date Reported: MAY 23, 2023 Date Verified: MAY 23, 2023 Discovery Manager E-Sig:/ES/MORENA RUIZ JR Report: Study: Thyroid [...] Committee. Tessler et al., Journal of the [place] [employer] 2017;14:587-595. Primary Diagnostic Code: No immediate attention required Primary Interpreting Staff: MORENA RUIZ JR, Radiologist (Discovery Manager) /MORENA CAMPBELL JR [place] [facility] [place] [facility] May 17, 2023 01:14 PM NECK SOFT TISSUE: DILIA MENDOZA [id number] -[id number] M Exm Date: MAY 17, 2023@13:14 Req Phys: RAMONA HUNTER Pat Loc: CWM/NO/[facility]/PACT 2/SRN (Req'g Img Loc: [facility]/BUILDING 1 Service: Unknown (Case [id number] COMPLETE) NECK SOFT TISSUE (RAD Detailed) CPT:13566 Reason for Study: evaluate soft mobile nodules to left thyroid area Clinical History: Please also send to lab Report Status: Verified Date Reported: MAY 17, 2023 Date Verified: MAY 17, 2023 Discovery Manager E-Sig:/ES/MORENA RUIZ JR Report: Study: AP [...] Primary Interpreting Staff: MORENA RUIZ JR, Radiologist (Discovery Manager) /MORENA CAMPBELL JR [facility] Encounter Notes: All associated encounter notes This section contains the clinical notes associated to the Encounter. Date/Time Encounter Note(s) Provider Source May 11, 2023 02:50 PM [facility] NOTE: LOCAL TITLE: HEALTH CARE AGENT ACTIVATION NOTE STANDARD TITLE: [facility] NOTE DATE OF NOTE: MAY 11, 2023@14:50 ENTRY DATE: MAY 11, 2023@14:50:58 AUTHOR: KERI HUNTER COSIGNER: URGENCY: STATUS: COMPLETED HEALTH CARE AGENT ACTIVATION NOTE The Health Care Proxy/Agent or alternate can make health care decisions on the individual's behalf in the event that it is determined that he/she lacks the capacity to make or communicate healthcare decisions for themselves. Before the Proxy/Agent can be activated and the Agent relied upon to make decisions, the Medical Provider must make a determination regarding the individuals capacity or incapacity to make health care decisions. Use the following parameters in making an assessment of the individual's capacity to make informed healthcare decisions: 1. Can s/he communicate a choice? 2. Can s/he understand the nature of his/her illness or condition? 3. Can s/he understand or weigh the benefits/risks of proposed treatment or intervention? 4. Can s/he manipulate information rationally? Designated Health Care Proxy/Agent: Lakshmi Dhaliwal Alternate Health Care Proxy/Agent: It is in my opinion that this individual is incapable of making informed health care decisions due to: cognitive impairment related to Alzheimers disease The duration of this incapacity: indefinate The signing of this note will activate the Health Care Proxy/Agent and gualberto the delegated agent and/or the alternate the authority to make medical decisions on the individuals behalf. /lalo/ RAMONA HUNTER RN,MSN,FIELD SERVICE TECH-C [facility] NURSE PRACTITIONER Signed: 05/11/2023 14:51 NENA HUNTER [facility] [place] [facility] May 03, 2023 04:50 PM HB NOTE: LOCAL TITLE: [facility] RISK ASSESSMENT STANDARD TITLE: [facility] NOTE DATE OF NOTE: MAY 03, 2023@16:50 ENTRY DATE: MAY 03, 2023@16:50:24 AUTHOR: RAÚL SUTTON EXP COSIGNER: URGENCY: STATUS: COMPLETED Patient Risk Assessment Date: Apr Patient Name: DILIA MENDOZA Last 4#: [id number] Reason for Risk Assessment: [ ] Initial Date Admitted: [X] Annual [ ] Update VVC Ready: Yes [X] No [X] Oxygen: Yes [ ] No [X] Smoker: Yes [ ] No [X] Does patient have air conditioning in the home? Yes [X] No [ ] Does patient have reliable heat in the home? Yes [X] No [ ] Complex Wound: Yes [ ] No [X] Quintana Catheter: Yes [ ] No [X] Type of Equipment: [ ] Liquid Tank: [ ] Concentrator: Exp.Date [ ] Bi-pap: Maintenance Date: [ ] C-pap: Maintenance Date: [ ] Portable Tank: Exp. Date: [ ] Ventilator [ ] Feeding Tube Vendor Name: Phone#: Equipment Requiring Back-Up (list): Does have Backup Generator: Yes [ ] No [X] Risk level for needing in home assistance: [X] Lowest Risk - Live at home with adequate support or in residential housing (e.g. Assistive Living Facility, Residential) - Condition stable medically and/or cognitively with access to informal resources for help and/or independent with ADL's [ ] Moderate Risk for Prolonged Emergency situations (> 5 days) - Medical/Cognitive condition more labile with dependable caregiver support - Bedbound with dependable Caregiver support - Supplemental Oxygen with dependable Caregiver support - Patient is equipment dependent, with dependable caregiver (Ventilator/Tube feedings/Dialysis/Magalie lifts/etc.) [ ] Highest Risk - Lives in single family residence with no caregiver support or caregiver is not likely to provide assistance - Condition unstable medically and/or cognitively, with or without identified caregivers and Patient may deteriorate or require alternative services Comments: /lalo/ JODI SUTTON RN [facility] accounts receivable executive Signed: 05/03/2023 16:51 Receipt Acknowledged By: 05/04/2023 10:06 /lalo/ [employer] [facility] [employer] GUIDANCE COUNSELOR ALBERTO SUTTON [place] [facility] [place] [facility] Apr 28, 2023 01:30 PM HB ADMISSION EVALUATION NOTE: LOCAL TITLE: [facility] AUTOMATIC BUFFING WHEEL FORMER NOTE STANDARD TITLE: [facility] ADMISSION EVALUATION NOTE DATE OF NOTE: APR 28, 2023@13:30 ENTRY DATE: MAY 03, 2023@08:42:02 AUTHOR: RAÚL SUTTON EXP COSIGNER: URGENCY: STATUS: COMPLETED Coronavirus Disease 2019 [...] > 15 minutes). Result: Screen is negative. WHAT MATTERS What Matters was addressed at this visit. Comment: I like to dance - The Patient Priorities Care (PPC) approach was used to ask and identify What Matters. - The One Thing that Matters to the was used to align the current care plan. MEDICATION Medications were addressed at this visit. Comment: Lakshmi manages meds MENTATION Depression was not addressed at this visit. Indicate reason Depression was not addressed: Other Comment: No s/s of depression MENTATION Dementia was addressed at this visit. Comment: Alzheimer's diagnosis MENTATION Delirium was addressed at this visit. Comment: No s/s of delirium noted or reported MOBILITY -------- Mobility was not addressed at this visit. Indicate reason Mobility was not addressed: Other Comment: Deferring to OT REASON FOR ASSESSMENT: Yearly re-assessment A new Patient handbook was given and reviewed with Patient and/or caregiver. PATIENT IDENTIFICATION is established with [facility], no identification necessary. Length of visit in home: 60 min Primary language: Turkmen Advance Directive discussed with patient: yes Code Status: Full Family/Community Support: Girlfriend Lakshmi Length of time alone during the day: never or hardly ever MEDICATIONS: Active Outpatient Medications (including Supplies): CARBAMIDE PEROXIDE 6.5% OTIC SOLN INSTILL 5 DROPS INTO THE ACTIVE AFFECTED EAR(S) TWICE DAILY FOR EAR WAX BLOCKAGE CARBOXYMETHYLCELLULOSE NA 0.5% OPH SOLN INSTILL 1 DROP ACTIVE INTO EACH EYE FOUR TIMES DAILY NEEDED FOR DRY EYE DICLOFENAC NA 1% TOP GEL APPLY 2 GRAMS TOPICALLY FOUR ACTIVE TIMES DAILY NEEDED FOR OSTEOARTHRITIS - USE DOSING CARD PROVIDED IN BOX MULTIVITAMIN/MINERALS CAP/TAB TAKE 1 TABLET BY MOUTH ONCE ACTIVE DAILY FOR VITAMIN SUPPLEMENTATION ZINC OXIDE 20% OINT APPLY THIN LAYER TOPICALLY ONCE DAILY ACTIVE NEEDED FOR SKIN IRRITATION Non-VA DOCUSATE NA 100MG CAP 100MG BY MOUTH ONCE DAILY ACTIVE NEEDED Non-VA METOCLOPRAMIDE HCL 10MG TAB 10MG BY MOUTH THREE ACTIVE TIMES DAILY NEEDED Referred to [facility] pharmacy for medication review MEDICATION RECONCILIATION: Medication reconciliation completed during home visit. The was given the opportunity to discuss and ask questions about all prescription medications as well as dietary and herbal supplements, vitamins, OTC medications, etc. Currently, the is taking his/her medications as per the active orders in the electronic record. Patient has a current, accurate, printed list of medications. who assists patient with medications: caregiver Lakshmi Most recent Allergies: LATEX GLOVE Comments: VITAL SIGNS: Most recent vitals: 97.3 F [36.3 C] (04/28/2023 13:30) 75 (04/28/2023 13:30) 16 (04/28/2023 13:30) 130/84 (04/28/2023 13:30) 0 (04/28/2023 13:30) Men's Health (Male Specific Issues) --------- PAIN ASSESSMENT: Pain Intensity: Scale 1-10 0. Plan/Education (necessary if pain is greater than 3): Pain management education included a general understanding about pain, the risks for pain, the importance of effective pain management, and the pain assessment process. Done via discussions, printed materials that included the pain education booklet, healthy living pamphlet, CCTV, as needed. MENTAL HEALTH: Mental Status: alert oriented x 1 self Behavioral Triggers: (if present refer to social work or pcp for cognitive screening) is a poor historian Short term memory: problems with short term memory [facility] memory: problems with medical terminologist memory How well client makes decisions about organizing the day: moderately impaired - decisions consistently poor or unsafe, cues/supervision needed at all times. NEUROLOGICAL: Assessment: No problems EENT: Vision: wears corrective lenses: glasses sees adequately in most situations Hearing: severe difficulty wears hearing aide hearing aids bilaterally Swallowing: normal Dental assessment: Teeth: has own teeth in good condition CARDIOVASCULAR: assessment: no problems Pulses: apical: regular RESPIRATORY: assessment: No problems lungs: clear: bilaterally GASTROINTESTINAL: Assessment: No problems Abdomen bowel sounds: present active NUTRITION SCREEN [facility] Nutrition Screen 1. Does the patient have Food Allergies? No If Yes, then detail the food allergies: 2. Does the patient report unintentional weight loss OR gain of at least 10 pounds in the last three months? No If Yes, then specify: 3. Does the patient report a decrease in food intake and/or appetite? No 4. Are there dental problems that impact ability to consume food? No 5. Does the patient have a swallowing problem? No 6. Does the patient report eating habits or behaviors that may be indicators of an eating disorder (e.g. binging or induced vomiting)? No 7. Persistent nausea, vomiting, or diarrhea? No 8. Is the patient on tube-feeding? No 9. Diabetes? No 10.Pressure Sore? No Comments: An [facility] or Home Care Nutrition Consult should be initiated if there is a Yes answer to any of the above listed questions. SKIN ASSESSMENT: Color: Normal Comment: Temperature: Warm Turgor: Good Skin Condition: Intact Sensory Perception 4. No Impairment Moisture 4. Rarely Moist Activity 4. Walks Frequently Mobility 4. No Limitations Nutrition 3. Adequate Friction & Shear 3. No Apparent Problem INTEGUMENTARY: Abdiel Scale: 19-23 No Risk Score:22 Intervention/Plan: ( Severe/Moderate Risk= Refer to Nutrition and OT if applicable and PCP) GENITOURINARY: Incontinent: Type of incontinence: urgency at times Treatment for incontinence: bladder schedule MUSCULOSKELETAL: Assessment: Mobility: uses walker Falls: [facility] 10 Fall Risk Assessment Tool Required Core [...] the ground or at a lower level. 0-Incontinence Inability to make it to the bathroom or commode in a timely manner. Includes frequency, urgency, and/or nocturia 1-Visual impairment Includes but not limited to, macular degeneration, diabetic retinopathy, visual field loss, age related changes, decline in visual acuity, accommodation, glare tolerance, depth perception, and night vision or not wearing prescribed glasses or having the correct prescription 0-Impaired functional mobility May include patients who need [...] adhere to the plan of care. Total: 4 A score of 4 or more is considered at risk for falling. Created by: [facility] Adaptive Equipment Assessment: Adaptive Equipment used in the home: walker, shower chair, grab bars ADL STATUS Bathing dependent (needs help with bathing more than one part of the body, getting in or out of the tub/shower, or requires total bathing) Dressing dependent (needs help dressing self or needs to be completely dressed by others) Toileting independent (goes to toilet, gets on and off, arranges clothes, cleans genital areas without help.) Transferring independent (moves in and out of bed or chair unassisted, mechanical transferring aides are acceptable) Continence independent (exercises complete self-control over urination and defecation) Feeding independent (gets food from the plate into mouth without help, preparation of food may be done by another) IADL Status Ability to Use Telephone does not use telephone at all Shopping completely unable to shop Food Preparation needs to have meals prepared and served Housekeeping does not participate in any housekeeping tasks Laundry all laundry must be done by others Transportation travels only when accompanied by others Responsibility for Medications is not capable of dispensing own medications Ability to Handle Finances incapable of handling money HEALTH MAINTENANCE: ADMINISTERED Immunization Series Date Facility Reaction Info COVID-19 (MODERNA), MRNA, LNP-S,* 1 12/06/2021 [facility]* <C> COVID-19 (MODERNA), MRNA, LNP-S,* 4 06/18/2021 [facility]* COVID-19 (MODERNA), MRNA, LNP-S,* 3 12/31/2020 No Site COVID-19 (MODERNA), MRNA, LNP-S,* 2 05/14/2020 [facility]* <C> COVID-19 (MODERNA), MRNA, LNP-S,* 1 04/11/2020 [place]* <C> COVID-19 (MODERNA), MRNA, LNP-S,* 1 12/23/2022 [place] [facility] * DTAP, UNSPECIFIED FORMULATION No Site FLU,3 YRS (HISTORICAL) No Site <C> FLU,3 YRS (HISTORICAL) No Site FLU,3 YRS (HISTORICAL) No Site <C> INFLUENZA, HIGH-DOSE, QUADRIVALE* 12/14/2022 [place] [facility] * INFLUENZA, SEASONAL, INJECTABLE No Site INFLUENZA, UNSPECIFIED FORMULATI* Outside H* INFLUENZA, UNSPECIFIED FORMULATI* Outside H* INFLUENZA, UNSPECIFIED FORMULATI* Outside H* PNEUMOCOCCAL CONJUGATE PCV 13 12/05/2014 [place]* <C> PNEUMOCOCCAL POLYSACCHARIDE PPV23 02/05/2018 [facility]* RSV, BIVALENT, PROTEIN SUBUNIT R* 01/13/2023 [place] [facility] * ZOSTER (HISTORICAL) No Site ZOSTER RECOMBINANT 2 10/19/2020 [place]* ZOSTER RECOMBINANT 1 08/14/2020 [facility]* EDUCATIONAL ASSESSMENT: readiness to learn: limited ability to learn: limited reading ability: limited existing knowledge of health status: limited How does patient like to learn? by watching video OVERALL PROGNOSIS: Best description of patient's overall prognosis for recovery from this episode of illness. fair: maintenance of current condition is expected. INFORMATION PROVIDED [X] H&CC services and hours of availability [X] Names of H&CC team members/visit frequency [X] Infection control information [X] Patient rights and responsibilities [X] Advance directives information Reviewed information with patient and caregiver Patient and/or caregiver verbalized understanding of information provided PLAN Plan of Care: initial POC developed: Yes instructed initial POC: Yes anticipated length of care: Yes POC developed with patient/caregiver input: Yes patient and caregiver agree with POC: Yes Next visit date: 05/29/23 COMMENTS: Visit made to home for annual assessment, safety, ear irrigation and chronic disease management (Alzheimer's, HTN). Unity alert and oriented to self only. Sitting in recliner upon nurse arrival, REEL CUTTER and mother in law present for visit. VSS. No c/o pain at this time. Ear assessment and irrigation performed as recommended by ENT. Scant amount of cerumen present. Tolerated ear irrigation well. cognitive status remains unchanged. No acute changes reported or noted at this time. NO falls, NO ER visits, No infections and NO hospitalizations. /lalo/ JODI SUTTON RN [facility] accounts receivable executive Signed: 05/03/2023 17:59 ALBERTO SUTTON [facility] [place] [facility]
--- OUTSIDE RECORDS SUMMARY | 2024-03-07 06:45 | XMS_ITS ---
Author Name [facility] [place] Address [address] [place] [address] Care Team Providers Care Spar Cap Beveler Name Role Phone SARAY GARCIA Primary Care [...] PART B Feb 27, 2017 PART B [id number] REJI,GUSTAVO NRY PATIENT MEDICARE (WNR) MEDICARE (M) PART B Feb 27, 2017 PART B [id number] [phone] REJI,GUSTAVO NRY PATIENT MEDICARE (WNR) MEDICARE (M) PART A Feb 27, 2001 PART A [id number] WILGUS,HE NRY PATIENT MEDICARE (WNR) MEDICARE (M) PART A Feb 27, 2001 PART A [id number] [phone] GUSTAVO MENDOZA PATIENT Selected Encounter This section includes the information on record at [place] for the Encounter. Date/Time Encounter Type Encounter Description Reason Pro vider Source Apr 18, 2023 08:45 AM Outpatient Encounter [facility] PHYSIC EXTND(DATA CONVERSION DEVELOPER,RETAIL WAREHOUSE SUPERVISOR,PA) IHE Encounter Template Text not used by [place] Plan of Treatment: Future Appointments (+ 6 months) and Future Tests (+/- 45 days) The Plan of Treatment section includes future care activities for the patient from all [place] treatmentfacilities. This section includes future appointments and future orders which are active, pending or scheduled. Future Appointments This section includes appointments that were scheduled to occur 6 months from the date of the Encounter, up to a maximum of 20 appointments. The data comes from all [place] treatment facilities. Appointment Date/Time Appointment Type Appointme nt Facility Name May 17, 2023 01:30 PM AMBULATORY - NONE [place] [facility] [place] [facility] May 23, 2023 11:00 AM AM[place]ULATORY - [place]ICIN [place] [facility] [place] [facility] May 23, 2023 01:00 PM AM[place]ULATORY [place]ICINE [place] [facility] [place] [facility] May 23, 2023 03:00 PM AMBULATORY - NONE [place] [facility] [place] [facility] July 11, 2023 01:45 PM AMBULATORY - [place]ICINE [place] [facility] [place] [facility] Oct 04, 2023 02:00 PM AMBULATORY - REHAB MEDICIN E [facility] [place] [facility] Oct 04, 2023 03:00 PM AM[place]ULATORY [place]ICINE [place] [facility] [place] [facility] Oct 04, 2023 03:30 PM AMBULATORY - MEDICINE [place] [facility] [place] [facility] Oct 04, 2023 04:15 PM AMBULATORY [place]ICINE [place] [facility] [place] [facility] Lab Results: +/- 30 days of the encounter This section includes the Chemistry and Hematology Lab Results on record with [place] for the patient. Radiology Reports and Pathology Reports are provided separately, in subsequent sections. Lab Results This section contains the Chemistry/Hematology Results that were resulted 30 days before or 30 daysafter the date of the Encounter. Date/Time Source Result Type Result - Unit Interpretation Reference Range Comment Mar 20, 2023 01:10 PM [place] [facility] [place] [facility] THYROID T4 FREE(FT4) Specimen Type: SERUM No comment entered. Ordering Provider: Alex GARCIA Report Released Date/Time: Jan 23, 2023 09:45 AM Reporting [facility] [place] [facility] [address] [facility] [address] Performing Lab: [facility] [address] [facility] [address] THYROID T4 FREE(FT4) 0.97 ng/dL 0.6-1.6 Mar 20, 2023 01:10 PM [facility] HEMOGLOBIN A1C PANEL Specimen Type: BLOOD Comment: Values obtained from A1C measurements can vary. For atypical A1C assays, a reported value of 7.0 could actually be between 6.72 and 7.28 if measured by a reference method. A reported value of 9.0 could actually be between 8.73 and 9.27. Ref: http://www.ngs p.org/CAPdata. asp Ordering Provider: Alex GARCIA Report Released Date/Time: Jan 02, 2023 02:18 PM Reporting Lab: [facility] [address] [facility] [address] Performing Lab: [facility] RUSTN [facility] [address] [address] HEMOGLOBIN A1C 5.3 4.0-5.6 Mar 20, 2023 01:10 PM [facility] TSH Specimen Type: SERUM No comment entered. Ordering Provider: Alex GARCIA Report Released Date/Time: Jan 02, 2023 02:18 PM Reporting Lab: [facility] [address] [facility] [address] Performing Lab: [facility] [address] [facility] [address] TSH 5.18 u[IU]/mL H 0.35-5.00 Mar 20, 2023 01:10 PM [facility] BASIC METABOLIC PANEL (non-fasting) Specimen Type: SERUM No comment entered. Ordering Provider: Alex GARCIA Report Released Date/Time: Jan 02, 2023 02:18 PM Reporting Lab: [facility] [address] [facility] [address] Performing Lab: [facility] [address] [facility] [address] UREA NITROGEN 15 mg/dL 7-25 GLUCOSE 150 [...] and tobacco- related health factors from the [place] facility where the Encounter took place. Current Smoking Status This section includes the most current smoking, or tobacco-related health factor, from the [place] facility where the Encounter took place. Date/Time Current Smoking Status Comment Facil ity Dec 14, 2022 12:15 PM VA-TOBACCO NEVER USED [facility] Tobacco Use History This section includes a history of the smoking, or tobacco-related health factors, that were collected on or before the date of the Encounter. The data comes from the [place] facility where the Encounter took place. Date/Time Smoking Status/Tobacco Use Comment F acility Jan 10, 2019 10:51 AM [place]-TOBACCO NEVER USED [facility] Advance Directives: All historical and current Section Date Range: From patient's date of to the date document was created. This section includes ALL of a patient's completed or amended [place] Advance and Rescinded Directives. The entries below indicate that a directive exists for the patient, but an actual copy is not included with this document. The data comes from all [place] facilities. Date Advance Directives Provider Source Aug [...] the Encounter. The data comes from all [place] treatment facilities. Date/Time Radiology Report Provider Source May 17, 2023 01:14 PM NECK SOFT TISSUE: DILIA MNEDOZA [id number] -[id number] M Exm Date: MAY 17, 2023@13:14 Req Phys: SARAY GARCIA Loc: CWM/NO/[facility]/PACT 2/SRN (Req'g Img Loc: [facility] 1 Service: Unknown (Case [id number] COMPLETE) NECK SOFT TISSUE (RAD Detailed) CPT:60468 Reason for Study: evaluate soft mobile nodules to left thyroid area Clinical History: Please also send to lab Report Status: Verified Date Reported: MAY 17, 2023 Date Verified: MAY 17, 2023 Crude Tester E-Sig:/ES/MORENA RUIZ JR Report: Study: AP and [...] Primary Interpreting Staff: MORENA RUIZ JR, Radiologist (Crude Tester) /MORENA CAMPBELL JR [place] [facility] [place] [facility] Encounter Notes: All associated encounter notes This section contains the clinical notes associated to the Encounter. Date/Time Encounter Note(s) Provider Source Apr 18, 2023 08:45 AM [facility] NOTE: LOCAL TITLE: HB INTERDISCIPLINARY NOTE STANDARD TITLE: [facility] NOTE DATE OF NOTE: APR 18, 2023@08:45 ENTRY DATE: APR 24, 2023@08:46:15 AUTHOR: RAÚL SUTTON EXP COSIGNER: URGENCY: STATUS: COMPLETED [facility] INTERDISCIPLINARY NOTE Has ADDENDA INTERDISCIPLINARY NOTE Allergies: LATEX GLOVE Risk Assessment Level 1 Low risk DNR: No Advanced Directive Completed: Yes Family/Community Support: Girlfrienyeimi Martins Mental Status: Dx of Alzheimer's Disease PLAN OF CARE 90 day review Dates covered by plan of care from Mar to June Primary Care Provider: Saray Garcia NP PROBLEM LIST: Active problems - Computerized Problem List is the source for the followin. Alzheimer's disease 2. Hiccups 3. Anemia 4. White matter disease 5. Disorder of thyroid gland subclinical hypothyroid 10/11/22 6. Cognitive impairment 7. Actinic keratosis 8. Primary hypertension 04/24/22 echo: LVEF 60-65%, no interval change as compared to 11/08/20 echo 04/21/22 EKG NSR w occ PVC, RBBB 9. Disorder of meniscus of knee s/p surgery on bilateral knees 10. Benign prostatic hypertrophy with outflow obstruction s/p what sounds like a turp in 1998 11. Erectile dysfunction 12. SS - Spinal stenosis 13. Cat. - Cataract R 14. HL - Hearing loss [facility] Medications: Active [...] THREE TIMES DAILY NEEDED 7 Total Medications Gender Specific Health Assessment: BPH and Erectile dysfunction Fall Risk: [facility] 10 Fall Risk Assessment Tool Required Core [...] adhere to the plan of care. Total: 4- A score of 4 or more is considered at risk for falling. Created by: [facility] Functional Limitations Use of assistive devices walker hearing loss bowel/bladder incontinence Nutritional Requirements: Diet: Regular RN VISIT FREQUENCY RN 1 to 4 every [...] on caring for elders with cognitive impairment. Skilled Interventions: venipuncture (include test ordered and [...] will recognize changes that require reporting to [facility] staff patient will be safe in home with environment adjusted to accommodate decrease in cognition and/or increase in disease progression Involvement of additional [facility] team members: N.P. assess and attach specific plan SW assess and attach specific plan RD assess and attach specific plan O.T. assess and attach specific plan request pharmacy review of medications Discharge Plan when able to remain in community safely with assistance of services and or family Per [facility] Discharge Policy Comments: This is an 88 year old [email or web address] period of service [place], treatment and prescription copay exempt. Alert and oriented x1, forgetful. HCP is his girlfriend Lakshmi and she also takes care of her elderly mother. 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 On this IDT cognition with no changes. Perseverating on talking about the past and things he enjoyed, very forgetful. Vet hearing had worsen and appointment with ENT was on 01/24. Per Lakshmi had the ENT appointment where he had his ears irrigated. caregiver stated that ENT recommendation is for ear drop regimen once a month with maintenance irrigation with plan to follow up with ENT in a year. Nurse doing ear irrigations every 6 weeks for maintenance. with good appetite. Regular bowel and bladder. using walker for ambulation. No falls, No ER visits and NO hospitalizations this IDT. /es/ JODI SUTTON RN [facility] immunologist Signed: 04/24/2023 16:06 Receipt Acknowledged By: 04/24/2023 16:12 /es/ KEAGAN MARINELLI RN, BSN [facility] IMMUNOLOGIST 04/24/2023 17:47 /es/ Nelli Cordero, MSN, DATA CONVERSION DEVELOPER [facility] Process Pumper 04/25/2023 07:56 /es/ FRANK PIZANO [facility] Clinical Pharmacist Practitioner 04/25/2023 12:38 /es/ Marly GRIMESN [facility] immunologist 04/25/2023 08:30 /es/ SARAY GARCIA RN,MSN,MULTIMEDIA EDITOR-C [facility] NURSE PRACTITIONER 04/25/2023 07:43 /es/ ESTEPHANIE DANIELLE [facility] Manager Behavioral 04/25/2023 07:56 /es/ Lacie Orlando [facility] Occupational Therapist 04/25/2023 17:00 /es/ Dianne Carrillo RN BSN [facility] IMMUNOLOGIST 05/01/2023 11:59 /es/ LEBRON CATES RD, LDN REGISTERED DIETITIAN 04/25/2023 ADDENDUM STATUS: COMPLETED Manager Behavioral is available for psychosocial support as needed. Annual assessment to be conducted April 2023 unless otherwise indicated. /es/ ESTEPHANIE DANIELLE [facility] Manager Behavioral Signed: 04/25/2023 07:44 04/25/2023 ADDENDUM STATUS: COMPLETED No [facility] rehab needs identified at this time; will follow up with [place] annually and as need arises for change in function. /es/ Lacie Orlando [facility] Occupational Therapist Signed: 04/25/2023 07:56 04/25/2023 ADDENDUM STATUS: COMPLETED Will continue to review medication regimen quarterly. /es/ FRANK PIZANO [facility] Clinical Pharmacist Practitioner Signed: 04/25/2023 07:57 04/25/2023 ADDENDUM STATUS: COMPLETED Will continue to follow every 6-12 months for routine medical care and as needed for changes in condition. /es/ SARAY GARCIA RN,MSN,MULTIMEDIA EDITOR-C [facility] NURSE PRACTITIONER Signed: 04/25/2023 08:30 05/01/2023 ADDENDUM STATUS: COMPLETED discussed at IDT meeting. Patient was last seen in person by [facility] dietitian on 05/25/22. Plan: 1. Follow-up visit: annually or sooner as needed if change in condition 2. Monitor progress toward achievement of Nutrition Intervention Goals 3. Assess comprehension and motivation based on dietary changes made 4. Monitor progress toward achievement of Clinical Outcome Goals: Weight, Labs, Skin integrity, Oral Intake 5. Follow for clinical issues at IDT meetings and with quarterly chart review. /es/ LEBRON CATES RD, LDN REGISTERED DIETITIAN Signed: 05/01/2023 11:59 CRISTOBAL SUTTON [place] [facility]
--- OUTSIDE RECORDS SUMMARY | 2024-03-07 06:45 | XMS_ITS | Encounter Summary ---
Author Name [place] Address [address] [place] [address] Care Team Providers Care Stretch Press Operator Name Role Phone RAMONA HUNTER Primary [...] PART B Feb 27, 2017 PART B [id number] [phone] ARONGUS,GUSTAVO NRY PATIENT MEDICARE (WNR) MEDICARE (M) PART B Feb 27, 2017 PART B [id number] ARONGUS,GUSTAVO NRY PATIENT MEDICARE (WNR) MEDICARE (M) PART A Feb 27, 2001 PART A [id number] [phone] ARONGUS,GUSTAVO NRY PATIENT MEDICARE (WNR) MEDICARE (M) PART A Feb 27, 2001 PART A [id number] [phone] WILGUS,HE NRY PATIENT Selected Encounter This section includes the information on record at [place] for the Encounter. Date/Time Encounter Type Encounter Description Reason Pro vider Source May 16, 2023 01:48 PM Outpatient Encounter TELEPHONE [facility] IH Encounter Template Text not used by [place] [...] 17, 2023 01:30 PM AM[place]ULATORY - NONE [place] [facility] [place] [facility] May 23, 2023 11:00 AM AMBULATORY - REHAB MEDICIN E [facility] [place] [facility] May 23, 2023 01:00 PM AM[place]ULATORY - [place]ICINE [place] [facility] [facility] May 23, 2023 03:00 PM AMBULATORY - NONE [place] [facility] [place] [facility] July 11, 2023 01:45 PM AMBULATORY - MEDICINE [place] [facility] [facility] Oct 04, 2023 02:00 PM AMBULATORY - REHAB MEDICIN E [facility] [place] [facility] Oct 04, 2023 03:00 PM AMBULATORY - MEDICINE [place] [facility] [facility] Oct 04, 2023 03:30 PM AMBULATORY - MEDICINE [place] [facility] [facility] Oct 04, 2023 04:15 PM AMBULATORY - [place]ICINE [place] [facility] [place] [facility] Lab Results: +/- 30 days of the encounter This section includes the Chemistry and Hematology Lab Results on record with [place] for the patient. Radiology Reports and Pathology Reports are provided separately, in subsequent sections. Lab Results This section contains the Chemistry/Hematology Results that were resulted 30 days before or 30 daysafter the date of the Encounter. Date/Time Source Result Type Result - Unit Interpretation Reference Range Comment May 23, 2023 02:11 PM [place] [facility] [place] [facility] THYROID T4 FREE(FT4) Specimen Type: SERUM No comment entered. Ordering Provider: Alex HUNTER Report Released Date/Time: May 11, 2023 02:45 PM Reporting Lab: [place] [facility] [place] [facility] [address] [facility] [address] Performing Lab: [place] [facility] [place] [facility] [address] [facility] [address] THYROID T4 FREE(FT4) 1.03 ng/dL 0.6-1.6 May 23, 2023 02:11 PM [facility] [place] [facility] THYROID TOTAL T3 Specimen Type: SERUM No comment entered. Ordering Provider: Alex HUNTER Report Released Date/Time: May 11, 2023 02:45 PM Reporting Lab: [place] [facility] [facility] [address] [facility] [address] Performing Lab: [place] [facility] [address] [facility] [address] THYROID TOTAL T3 75.21 ng/dL 35-193 May 23, 2023 02:11 PM [facility] TSH Specimen Type: SERUM No comment entered. Ordering Provider: Alex HUNTRE Report Released Date/Time: May 11, 2023 02:45 PM Reporting Lab: [place] [facility] [place] [facility] [address] [facility] [address] Performing Lab: [place] [facility] [address] [address] TSH 4.54 u[IU]/mL 0.35-5.00 May 23, 2023 02:11 PM [facility] PT & INR (PROTIME) Specimen Type: PLASMA No comment entered. Ordering Provider: Alex HUNTER Report Released Date/Time: May 11, 2023 02:45 PM Reporting Lab: [place] [facility] [place] [facility] [address] [facility] [address] Performing Lab: [facility] [address] [address] INR 1.0 PROTIME 11.8 s 10.0-13.1 May 23, 2023 02:11 PM [facility] CBC AND DIFF (AUTO) Specimen Type: BLOOD No comment entered. Ordering Provider: Alex HUNTER Report Released Date/Time: May 11, 2023 02:45 PM Reporting Lab: [facility] [address] [facility] [address] Performing Lab: [facility] [address] [facility] [address] WBC 6.36 10*3/uL 4.50-11.00 RBC 4.94 10*6/uL 4.23-5.66 HGB 14.7 g/dL 12.8-17 HCT 42.9 39.2-50.4 MCV 86.8 fL 82-99 MCHC 34.3 g/dL 30.8-35.1 PLT 226 10*3/uL 140-360 RDW-CV 13.2 12.0-16.0 Hyde, Abs 0.47 10*3/uL 0.30-1.10 MCH 29.8 pg 26.2-32.6 Neut % 69.4 43.7-75.8 Lymph % 21.5 14.0-42.3 Hyde % 7.4 5.1-13.7 Eos % 0.6 0.4-6.8 [...] 14, 2022 12:15 PM VA-TOBACCO NEVER USED [facility] Tobacco Use History This section includes a history of the smoking, or tobacco-related health factors, that were collected on or before the date of the Encounter. The data comes from the [place] facility where the Encounter took place. Date/Time Smoking Status/Tobacco Use Comment Dane acility Jan 10, 2019 10:51 AM VA-TOBACCO NEVER USED [facility] Advance Directives: All historical and current [...] the Encounter. The data comes from all [place] treatment facilities. Date/Time Radiology Report Provider Source May 23, 2023 01:54 PM ULTRASOUND THYROID: DILIA MENDOZA [id number] -1935 M Ex Date: MAY 23, 2023@13:54 Req Phys: RAMONA HUNTER Loc: CWM/NO/[facility]/PACT 2/SNP (Req'g Img Loc: ULTRASOUND Service: Unknown (Case [id number] COMPLETE) ULTRASOUND THYROID (US Detailed) CPT:60663 Reason for Study: evalute soft mobile nodules to left thyroid area Clinical History: patient will be in [place] 05/22 so this day is preferred Report Status: Verified Date Reported: MAY 23, 2023 Date Verified: MAY 23, 2023 Director Of Global Sales E-Sig:/ES/MORENA RUIZ JR Report: Study: Thyroid ultrasound. [...] Committee. Mariselsisadora et al., Journal of the [employer] 2017;14:587-595. Primary Diagnostic Code: No immediate attention required Primary Interpreting Staff: MORENA RUIZ JR, Radiologist (Director Of Global Sales) /MORENA CAMPBELL JR [place] [facility] [place] [facility] May 17, 2023 01:14 PM NECK SOFT TISSUE: DILIA MENDOZA [id number] -[id number] M Ex Date: MAY 17, 2023@13:14 Req Phys: RAMONA HUNTER Loc: CWM/NO/HBPC/PACT 2/SRN (Req'g Img Loc: [facility] 1 Service: Unknown (Case [id number] COMPLETE) NECK SOFT TISSUE (RAD Detailed) CPT:48919 Reason for Study: evaluate soft mobile nodules to left thyroid area Clinical History: Please also send to lab Report Status: Verified Date Reported: MAY 17, 2023 Date Verified: MAY 17, 2023 Director Of Global Sales E-Sig:/ES/MORENA RUIZ JR Report: Study: AP and [...] Primary Interpreting Staff: MORENA RUIZ JR, Radiologist (Director Of Global Sales) /MORENA CAMPBELL JR [facility] Encounter Notes: All associated encounter notes This section contains the clinical notes associated to the Encounter. Date/Time Encounter Note(s) Provider Source May 16, 2023 01:48 PM [facility] NOTE: LOCAL TITLE: [facility] TELEPHONE NOTE STANDARD TITLE: [facility] NOTE DATE OF NOTE: MAY 16, 2023@13:48 ENTRY DATE: MAY 16, 2023@13:49:01 AUTHOR: RAÚL SUTTON COSIGNER: URGENCY: STATUS: COMPLETED Call received from girlfriend Lakshmi inquiring if provider can make letter from her excusing her from jury duty as she is the sole responsible person for the care of . 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 Adding FLATWORK PRESSER to request /lalo/ JODI SUTTON RN [facility] curriculum specialist Signed: 05/16/2023 13:54 Receipt Acknowledged By: 05/16/2023 14:12 /es/ RAMONA HUNTER RN,MSN,SOFTWARE EDUCATOR-C [facility] NURSE PRACTITIONER ALBERTO SUTTON [facility]
--- OUTSIDE RECORDS SUMMARY | 2024-03-07 06:45 | XMS_ITS | Encounter Summary ---
Author Name [facility] [place] Organization [facility] [place] Address [address] [place] [id number] Care Team Providers Care Systems Security Consultant Name Role Phone RAMONA HUNTER Primary Care [...] PART B Feb 27, 2017 PART B [id number] ARONGUS,GUSTAVO NRY PATIENT MEDICARE (WNR) MEDICARE (M) PART B Feb 27, 2017 PART B [id number] [phone] ARONGUS,GUSTAVO NRY PATIENT MEDICARE (WNR) MEDICARE (M) PART A Feb 27, 2001 PART A [id number] ARONGUS,GUSTAVO NRY PATIENT MEDICARE (WNR) MEDICARE (M) PART A Feb 27, 2001 PART A [id number] [phone] WILGUS,HE NRY PATIENT Selected Encounter This section includes the information on record at [place] for the Encounter. Date/Time Encounter Type Encounter Description Reason Provider Source Apr 19, 2023 12:00 PM MEASURE VENOUS PRESSURE [facility] Nursing (RN / LP) ICD-10-CM H91.93 Unspecified hearing loss, bilateral RÍOSHERMINIO JODI Yg Encounter Template Text not used by [place] Assessments - Encounter Diagnoses This section includes the primary and secondary diagnoses documented for the Encounter. Date/Time Primary/Secondary Diagnosis Diagnosis Name Provider Source Apr 24, 2023 08:36 AM PRIMARY Unspecified hearing loss, bilateral HERMAN JODI [facility] [place] [facility] Apr 24, 2023 08:36 AM SECONDARY Dem in oth dis classd elswhr,unsp sev,w/o beh/psych/mood/an x SAIDADANNI JODI [facility] [place] [facility] Plan of Treatment: Future Appointments (+ 6 months) and Future Tests (+/- 45 days) The Plan of Treatment section includes [facility] care activities for the [facility] [place] [facility] This section includes future appointments and [...] AMBULATORY - NONE [facility] [place] [facility] May 23, 2023 11:00 AM AMBULATORY - REHAB MEDICIN E [facility] [place] [facility] May 23, 2023 01:00 PM AMBULATORY - MEDICINE [place] [facility] [place] [facility] May 23, 2023 03:00 PM AMBULATORY - NONE [facility] [place] [facility] July 11, 2023 01:45 PM AMBULATORY - MEDICINE [place] [facility] [place] [facility] Oct 04, 2023 02:00 PM AMBULATORY - REHAB MEDICIN E [facility] [place] [facility] Oct 04, 2023 03:00 PM AMBULATORY - MEDICINE [place] [facility] [place] [facility] Oct 04, 2023 03:30 PM AMBULATORY - MEDICINE [facility] [place] [facility] Oct 04, 2023 04:15 PM AMBULATORY - MEDICINE [facility] Vital Signs: All taken on the encounter date This section contains inpatient and outpatient Vital Signs collected on the date of the Encounter. Date/Time Temperature Pulse Blood Pressure Respiratory Rate SP02 Pain Height Weight Body Mass Index Source Apr 19, 2023 12:00 PM 66 136/72 16 [facility] Social History: Smoking Status (Most current) [...] 14, 2022 12:15 PM VA-TOBACCO NEVER USED [facility] Tobacco Use History This section includes a history of the smoking, or tobacco-related health factors, that were collected on or before the date of the Encounter. The data comes from the [place] facility where the Encounter took place. Date/Time Smoking Status/Tobacco Use Comment F acility Jan 10, 2019 10:51 AM VA-TOBACCO NEVER USED [facility] Advance Directives: All historical and current Section Date Range: From patient's date of to the date document was created. This section includes ALL of a patient's completed or amended [place] Advance and Rescinded Directives. The entries below [...] the Encounter. The data comes from all [place] treatment facilities. Date/Time Radiology Report Provider Source May 17, 2023 01:14 PM NECK SOFT TISSUE: DILIA MENDOZA [id number] -[id number] M Exm Date: MAY 17, 2023@13:14 Req Phys: RAMONA HUNTER Loc: C[facility]/NO/[facility]/PACT 2/SRN (Req'g Img Loc: [facility]/BUILDING 1 Service: Unknown (Case [id number] COMPLETE) NECK SOFT TISSUE (RAD Detailed) CPT:35404 Reason for Study: evaluate soft mobile nodules to left thyroid area Clinical History: Please also send to lab Report Status: Verified Date Reported: MAY 17, 2023 Date Verified: MAY 17, 2023 Pillowcase Sewer E-Sig:/ES/MORENA RUIZ JR Report: Study: AP and [...] Primary Interpreting Staff: MORENA RUIZ JR, Radiologist (Pillowcase Sewer) /MORENA CAMPBELL JR [facility] Encounter Notes: All associated encounter notes This section contains the clinical notes associated to the Encounter. Date/Time Encounter Note(s) Provider Source Apr 19, 2023 12:00 PM [facility] NURSING NOTE: LOCAL TITLE: [facility] RN PROGRESS NOTE STANDARD TITLE: [facility] NURSING NOTE DATE OF NOTE: APR 19, 2023@12:00 ENTRY DATE: APR 20, 2023@17:03:44 AUTHOR: RÍOS-DANNI,GABR EXP COSIGNER: URGENCY: STATUS: COMPLETED Coronavirus Disease [...] in patient's home at time of visit. [place] identified by: Full Name, Address, Facial Recognition Length of visit in home: 15 min Problem addressed for this visit: Routine assessment, BP NURSING SUMMARY: Visit made to home with initial plan to complete ear irrigation but caregiver had not done ear drops in preparation. Nurse planned with caregiver to return on 04/27 to do ear irrigation. alert and oriented to self, pleasant and cooperative with care. 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 VSS. No c/o pain. regular bowel and bladder reported . No s/s of UTI. with good appetite. Requires re orienting r/t Alzheimer's disease and perseverating with the past. No acute findings this visit. No falls, NO ER visits and NO hospitalizations Blood Pressure: 136/72 Pulse: 66 Respiration: 16 Pain Score: 0 (03/20/2023 12:30) EXAMINATION: Lungs: Clear Edema: None HR: Regular Bowel/Bladder: Regular bowel and bladder reported. Denies constipation. No s/s of UTI Skin: Intact Home Safety FALLS NO INFECTIONS NO ER/HOSPITALIZATIONS NO Teaching/goals: hydrations needs, low BP s/s Patient verbalizes understanding to above and will call with any concerns or changes in condition. For emergent care call 911. Plan for next visit: Ear irrigation on 04/27 /lalo/ FLORI MIDDLETONPC truck supervisor Signed: 04/24/2023 08:43 CRISTOBAL SUTTON [facility]
--- OUTSIDE RECORDS SUMMARY | 2024-03-07 06:45 | XMS_ITS ---
Author Name [facility] [place] [facility] [place] Address [address] [place] [address] Care Team Providers Care Letter Carrier Name Role Phone SARAY GARCIA Primary Care [...] PART B Feb 27, 2017 PART B [id number] REJI,GUSTAVO NRY PATIENT MEDICARE (WNR) MEDICARE (M) PART B Feb 27, 2017 PART B [id number] REJI,GUSTAVO NRY PATIENT MEDICARE (WNR) MEDICARE (M) PART A Feb 27, 2001 PART A [id number] WILGUS,HE NRY PATIENT MEDICARE (WNR) MEDICARE (M) PART A Feb 27, 2001 PART A [id number] [phone] GUSTAVO MENDOZA PATIENT Selected Encounter This section includes the information on record at [place] for the Encounter. Date/Time Encounter Type Encounter Description Reason Provider Source May 11, 2023 01:00 PM Outpatient Encounter [facility] PHYSIC EXTND(CHIEF DEPUTY,ELECTROLYSIS ENGINEER,PA) ICD-10-CM G30.9 Alzheimer's disease, unspecified NORRIS-JOSE, SARAY IHE Encounter Template Text not used by [place] Assessments - Encounter Diagnoses This section includes the primary and secondary diagnoses documented for the Encounter. Date/Time Primary/Secondary Diagnosis Diagnosis Name Provider Source May 11, 2023 02:55 PM PRIMARY Alzheimer's disease, unspecified ELSAC YNTHIA [facility] [place] [facility] May 11, 2023 02:55 PM SECONDARY Dem in oth dis classd elswhr,unsp sev,w/o beh/psych/mood/an x ELSAC YNTHIA [facility] [place] [facility] May 11, 2023 02:55 PM SECONDARY Disorder of thyroid, unspecified ELSAC YNTHIA [facility] [place] [facility] May 11, 2023 02:55 PM SECONDARY Hiccough ELSAC YNTHIA [facility] [place] [facility] May 11, 2023 02:55 PM SECONDARY Unspecified hearing loss, bilateral NORRIS-JOSE,C YNTHIA [facility] [place] [facility] Plan of Treatment: Future Appointments (+ 6 months) and Future Tests (+/- 45 days) The Plan of Treatment section includes future care activities for the [facility] [place] [facility] This section includes future appointments and future orders which are active, pending or scheduled. Future Appointments This section includes appointments that were scheduled to occur 6 months from the date of the Encounter, up to a maximum of 20 appointments. The data comes from all [place] treatment facilities. Appointment Date/Time Appointment Type Appointme nt Facility Name May 17, 2023 01:30 PM AMBULATORY - NONE [facility] [place] [facility] May 23, 2023 11:00 AM AMBULATORY - REHAB MEDICIN E [facility] [place] [facility] May 23, 2023 01:00 PM AMBULATORY - MEDICINE [facility] [place] [facility] May 23, 2023 03:00 PM AMBULATORY - NONE [facility] [place] [facility] July 11, 2023 01:45 PM AMBULATORY - MEDICINE [facility] [place] [facility] Oct 04, 2023 02:00 PM AMBULATORY - REHAB MEDICIN E [facility] [place] [facility] Oct 04, 2023 03:00 PM AMBULATORY - MEDICINE [facility] [place] [facility] Oct 04, 2023 03:30 PM AMBULATORY - MEDICINE [facility] [place] [facility] Oct 04, 2023 04:15 PM AMBULATORY - MEDICINE [facility] [place] [facility] Range Comment May 23, 2023 02:11 PM [facility] [place] [facility] THYROID T4 FREE(FT4) Specimen Type: SERUM No comment entered. Ordering Provider: Alex GARCIA Report Released Date/Time: May 11, 2023 02:45 PM Reporting Lab: [facility] [place] [facility] [address] [facility] [address] Performing Lab: [facility] [place] [facility] [address] [facility] [address] THYROID T4 FREE(FT4) 1.03 ng/dL 0.6-1.6 May 23, 2023 02:11 PM [facility] [place] [facility] THYROID TOTAL T3 Specimen Type: SERUM No comment entered. Ordering Provider: lAex GARCIA Report Released Date/Time: May 11, 2023 02:45 PM Reporting Lab: [facility] [place] [facility] [address] [facility] [address] Performing Lab: [facility] [place] [facility] [address] [facility] [address] THYROID TOTAL T3 75.21 ng/dL 35-193 May 23, 2023 02:11 PM [facility] TSH Specimen Type: SERUM No comment entered. Ordering Provider: Alex GARCIA Report Released Date/Time: May 11, 2023 02:45 PM Reporting Lab: [facility] [address] [address] Performing Lab: [facility] [address] [address] TSH 4.54 u[IU]/mL 0.35-5.00 May 23, 2023 02:11 PM [facility] PT & INR (PROTIME) Specimen Type: PLASMA No comment entered. Ordering Provider: Alex GARCIA Report Released Date/Time: May 11, 2023 02:45 PM Reporting Lab: [facility] [address] Performing Lab: [facility] [address] INR 1.0 PROTIME 11.8 s 10.0-13.1 May 23, 2023 02:11 PM [facility] CBC AND DIFF (AUTO) Specimen Type: BLOOD No comment entered. Ordering Provider: Alex GARCIA Report Released Date/Time: May 11, 2023 02:45 PM Reporting Lab: [facility] [address] [address] Performing Lab: [facility] [address] [address] WBC 6.36 10*3/uL 4.50-11.00 RBC 4.94 10*6/uL 4.23-5.66 HGB 14.7 g/dL 12.8-17 HCT 42.9 39.2-50.4 MCV 86.8 fL 82-99 MCHC 34.3 g/dL 30.8-35.1 PLT 226 10*3/uL 140-360 RDW-CV 13.2 12.0-16.0 [place], Abs 0.47 10*3/uL 0.30-1.10 MCH 29.8 pg 26.2-32.6 Neut % 69.4 43.7-75.8 Lymph % 21.5 14.0-42.3 [place] % 7.4 5.1-13.7 Eos % 0.6 0.4-6.8 [...] Pain Height Weight Body Mass Index Source May 11, 2023 02:46 PM 98.6 69 132/70 16 99 0 [facility] Social History: Smoking Status (Most current) and Tobacco Use (All prior to encounter date) This section includes the most current, and the historical, smoking and tobacco- related health factors from the [place] facility where the Encounter took place. Current Smoking Status This section includes the most current smoking, or tobacco-related health factor, from the [place] facility where the Encounter took place. Date/Time Current Smoking Status Comment Frederick varner Dec 14, 2022 12:15 PM [facility] Tobacco Use History This section includes a history of the smoking, or tobacco-related health factors, that were collected on or before the date of the Encounter. The data comes from the [place] facility where the Encounter took place. Date/Time Smoking Status/Tobacco Use Comment Dane mercado Jan 10, 2019 10:51 AM [facility]TO[facility]CO [facility] Advance Directives: All historical and current Section Date Range: From patient's date of to the date document was created. This section includes ALL of a patient's completed or amended VA Advance and Rescinded Directives. The entries below indicate that a directive exists for the patient, but an actual copy is not included with this document. The data comes from all [place] facilities. Date Advance Directives Provider Source Aug 14, 2020 ADVANCE DIRECTIVE CRISTOPHER BENITEZYg PRITCHARD Radiology Reports: +/- 30 days of the [...] the Encounter. The data comes from all [place] treatment facilities. Date/Time Radiology Report Provider Source May 23, 2023 01:54 PM ULTRASOUND THYROID: DILIA MENDOZA [id number] -[id number] M Exm Date: MAY 23, 2023@13:54 Req Phys: SARAY GARCIA Loc: CWM/NO/[facility]/PACT 2/SNP (Req'g Img Loc: ULTRASOUND Service: Unknown (Case [id number] COMPLETE) ULTRASOUND THYROID (US Detailed) CPT:29651 Reason for Study: evalute soft mobile nodules to left thyroid area Clinical History: patient will be in [place] 05/22 so this day is preferred Report Status: Verified Date Reported: MAY 23, 2023 Date Verified: MAY 23, 2023 Barrel And Receiver Aligner E-Sig:/ES/MORENA RUIZ JR Report: Study: Thyroid ultrasound. [...] Committee. Merle et al., Journal of the [employer] 2017;14:587-595. Primary Diagnostic Code: No immediate attention required Primary Interpreting Staff: MORENA RUIZ JR, Radiologist (Barrel And Receiver Aligner) /MORENA CAMPBELL JR [facility] May 17, 2023 01:14 PM NECK SOFT TISSUE: DILIA MENDOZA [id number] -[id number] M Exm Date: MAY 17, 2023@13:14 Req Phys: NORRISTREVORSARAY Pat Loc: CWM/NO/[facility]/PACT 2/SRN (Req'g Img Loc: [facility]/BUILDING 1 Service: Unknown (Case [id number] COMPLETE) NECK SOFT TISSUE (RAD Detailed) CPT:18982 Reason for Study: evaluate soft mobile nodules to left thyroid area Clinical History: Please also send to lab Report Status: Verified Date Reported: MAY 17, 2023 Date Verified: MAY 17, 2023 Barrel And Receiver Aligner E-Sig:/ES/MORENA RUIZ JR Report: Study: AP and [...] Primary Interpreting Staff: MORENA RUIZ JR, Radiologist (Barrel And Receiver Aligner) /MORENA CAMPBELL JR [facility] Encounter Notes: All associated encounter notes This section contains the clinical notes associated to the Encounter. Date/Time Encounter Note(s) Provider Source May 16, 2023 02:16 PM ADDENDUM: LOCAL TITLE: Addendum STANDARD TITLE: ADDENDUM DATE OF NOTE: MAY 16, 2023@14:16:17 ENTRY DATE: MAY 16, 2023@14:16:18 AUTHOR: KERI GARCIAIGNER: URGENCY: STATUS: COMPLETED Please mail to patient. Thank you. /lalo/ SARAY GARCIA RN,MSN,JAVA SOFTWARE DEVELOPER-C [facility] NURSE PRACTITIONER Signed: 05/16/2023 14:16 Receipt Acknowledged By: 05/16/2023 14:25 /lalo/ [employer] [facility] FISH PROCESSING SUPERVISOR --- Original Document --- 05/16/23 PATIENT LETTER (B): [facility] [address] [place] [address] DILIA MENDOZA [address] [place] [id number] Date:MAY 16, 2023 To whom it may concern: Lakshmi Dhaliwal is the primary urgent care physician assistant for her significant other who is suffering from Alzhemiers disease. It is recommended that she be excused from Jury Duty as a result. Please call [phone] if you have any questions or concerns. Sincerely, Saray Garcia Nurse Practitioner [facility] [address] [place] [id number] fax: [phone] JEFF GARCIA MDA [facility] [place] [facility] May 16, 2023 02:13 PM LETTERS: LOCAL TITLE: PATIENT LETTER (B) STANDARD TITLE: LETTERS DATE OF NOTE: MAY 16, 2023@14:13 ENTRY DATE: MAY 16, 2023@14:13:15 AUTHOR: KERI GARCIA EXP COSIGNER: URGENCY: STATUS: COMPLETED PATIENT LETTER (B) Has ADDENDA [facility] [address] [place] [address] DILIA MENDOZA [address] [place], [place] [address] Date:MAY 16, 2023 To whom it may concern: Lakshmi Dhaliwal is the primary urgent care physician assistant for her significant other who is suffering from Alzhemiers disease. It is recommended that she be excused from Jury Duty as a result. Please call [phone] if you have any questions or concerns. Sincerely, Saray Garcia Nurse Practitioner [facility] [address] [place] [address] fax: [phone] 05/16/2023 ADDENDUM STATUS: COMPLETED Please mail to patient. Thank you. /lalo/ SARAY GARCIA RN,MSN,JAVA SOFTWARE DEVELOPER-C [facility] NURSE PRACTITIONER Signed: 05/16/2023 14:16 Receipt Acknowledged By: 05/16/2023 14:25 /lalo/ [employer] [facility] FISH PROCESSING SUPERVISOR JEFF GARCIA [facility] [place] [facility] May 11, 2023 02:55 PM ADDENDUM: LOCAL TITLE: Addendum STANDARD TITLE: ADDENDUM DATE OF NOTE: MAY 11, 2023@14:55:57 ENTRY DATE: MAY 11, 2023@14:55:58 AUTHOR: KERI GARCIA EXP COSIGNER: URGENCY: STATUS: COMPLETED -thyroid nodule: soft tissue neck ordered, patient to obtain labs at that time, will f/u w Lakshmi once results are available /es/ SARAY GARCIA RN,MSN,JAVA SOFTWARE DEVELOPER-C [facility] NURSE PRACTITIONER Signed: 05/11/2023 14:56 Receipt Acknowledged By: 05/15/2023 08:28 /lalo/ JODI SUTTON RN [facility] director marketing --- Original Document --- 05/11/23 [facility] PROVIDER ASSESSMENT: [facility] Provider Assessment Visit Saxton was seen for: [ ] Initial Review [x] Annual Review Identified by name, , address and facial recognition: Y VVC Ready: Yes [ ] No [x] HPI:88 yo M seen for annual f/u accompanied by Lakshmi's mother and aide Lisa. Patient A+O to person and place and feels well today. Active problems - Computerized Problem List is [...] of knee s/p surgery on tanya knees 10. Benign prostatic hypertrophy with outflow obstruction s/p what sounds like a turp in 1998 11. Erectile dysfunction 12. SS - Spinal stenosis 13. Cat. - Cataract R 14. HL - Hearing loss Allergies: LATEX GLOVE The following VA and Non-VA meds were reconciled with patient: Active and Recently Outpatient Medications (excluding Supplies): Active Outpatient Medications Status 1) CARBAMIDE [...] SKIN IRRITATION Pending Outpatient Medications Status 1) CARBAMIDE PEROXIDE 6.5% OTIC SOLN INSTILL 5 DROPS PENDING INTO THE AFFECTED EAR(S) TWICE DAILY Active Non-VA Medications Status 1) Non-VA DOCUSATE NA 100MG CAP 100MG BY MOUTH ONCE ACTIVE DAILY NEEDED 2) Non-VA METOCLOPRAMIDE HCL 10MG TAB 10MG BY MOUTH ACTIVE THREE TIMES DAILY NEEDED 8 Total Medications HISTORY: PERIOD OF SERVICE - Health Benefits Direct FROM Nov TO Sep COMBAT SERVICE INDICATED: No SH: MARITAL STATUS - Served in [facility] Lives in a modular 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 What brings you enrique? helicoptors Recent Falls Y( ) N(x Recent Infections Y( ) N(x Recent Hospitalizations Y ( ) N(x ADLS: Needs assistance with (x)ambulation (x) dressing (x)toileting ( )transferring (x) bathing ( ) feeding ( ) incontinence care Review of Systems: CONSTITUTIONAL: No recent weight change, no fever, no loss of appetite HEENT: +KASHIA No vision change, no blurring of vision no difficulty swallowing CARDIOVASCULAR: No cough, SOB, no chest pain, no palpitations GASTROINTESTINAL: No abdominal pain, bowels ok GENITOURINARY: No weak urine stream, no voiding dysfunction DERMATOLOGICAL: No new or changing skin lesions, no rash MUSCULOSKELETAL: No joint pain, no joint swelling, no muscle pain, no muscle weakness ENDOCRINE: no fatigue PSYCHIATRIC: No reported anxiety, no trouble sleeping, no depression NEUROLOGIC: No headache, no numbness, no tingling, no weakness, no memory loss, no dizziness VITAL SIGNS: B/P: 132/70 (05/11/2023 14:46) Pulse: 69 (05/11/2023 14:46) Temperature: 98.6 F [37.0 C] (05/11/2023 14:46) Weight: 188.9 lb [85.68 kg] (04/28/2023 13:30) Height: 72 in [182.9 cm] (08/14/2020 10:08) BMI: BMI: 25.7 Pain: 0 (05/11/2023 14:46) (0-10 scale) Pulse Ox:Measurement DT POx (L/MIN)(%) 05/11/2023 14:46 99 PE: GENERAL: Pt is appropriately dressed/groomed, good eye contact. NAD HEENT: normalcephalic, soft mobile palpable nodules to left thyroid, conj clear, Oropharynx clear, tongue moist, +KASHIA neck supple, no JVD, no carotid bruits SKIN: warm & dry, no rash CV: RRR, nl s1,s2 no M/G/R LUNGS: Clear to auscultation bilaterally, no use of accessory muscles ABD: NBS, soft, NT, ND, no masses or organomegaly appreciated EXTREMITIES: ENGLE, warm, no edema, +PP, +sensation NEURO/PSYCH: A+O to person and place, knows and location, mood/affect appropriate, thought/speech patterns Get up and go normal (x)with ( )without assistive device. ( )cane (x) walker Future Clinic Visits 10/04/2023 14:00 CWM/NO/AUDIOLOGY/DIAGNOST 10/04/2023 15:30 NHM/OPTOMETRY/BORASKI A/P: Active problems - Computerized Problem List is the source for the following: -thyroid nodule: soft tissue neck ordered, patient to obtain labs at that time, will f/u w Lakshmi once results are available -Alzheimer's disease: seen by neurology, cont w puzzles, word search HCP invoked for all healthcare decisionsPatient lacks decision making for: all Due to: cognitive impairment related to Alzhemiers disease >hx dehydration: Cont w electrolyte (low sodium/low sugar drinks) goal for 32-48 ounces fluid/day following low NA diet <2gm tongue moist -KASHIA: has hearing aides, f/u w ENT PRN, cont w ear lavages -Hiccups-intermittent. None reported since 04/21. Has reglan for PRN use. not needed -hx elevated BP: his lisinopril 10mg daily was stopped when had low BP last year. Cont to monitor and treat as warranted. has complex care needs and will benefit from ongoing interdisciplinary [facility] management., Treatmen plan included shared decision-making and is confirmed with Saxton/caregiver. All questions answered., Education provided regarding medication, including details regarding any changes. All questions answered. O2 safety addressed if applicable: Not applicable Life sustaining treatments/Goals of care conversation: LST/GOCC discussed today. No changes. Cognition: has diagnosis of dementia. Education on diagnosis and supportive care needs discussed with Saxton/caregiver. Counseled on importance of physical activity, healthy diet, socialization and mentally-engaging activities to optimize cognitive functioning. Functional independence: ADL assistance is needed. [facility] team to work with /caregiver to maximize functional independence. This may include caregiver training, adaptive equipment, referral for personal care assistance. Review of medical records: 10 min Time spent w patient including shared decision makin min Post visit documentation: 10 min F/U post U/S and 6-12 months, sooner PRN. Outpt. Medication Reconciliation: Outpatient Medication Reconciliation No [...] documented in this note. /lalo/ SARAY GARCIA RN,MSN,JAVA SOFTWARE DEVELOPER-C [facility] NURSE PRACTITIONER Signed: 05/11/2023 14:55 JEFF GARCIA [facility] [place] [facility] May 11, 2023 01:00 PM [facility] ATTENDING NOTE: LOCAL TITLE: [facility] PROVIDER ASSESSMENT STANDARD TITLE: [facility] ATTENDING NOTE DATE OF NOTE: MAY 11, 2023@13:00 ENTRY DATE: MAY 11, 2023@08:40:54 AUTHOR: KERI GARCIA COSIGNER: URGENCY: STATUS: COMPLETED [facility] PROVIDER ASSESSMENT Has ADDENDA [facility] Provider Assessment Visit Saxton was seen for: [ ] Initial Review [x] Annual Review Identified by name, , address and facial recognition: Y VVC Ready: Yes [ ] No [x] HPI:88 yo M seen for annual f/u accompanied by Lakshmi's mother and aide Lisa. Patient A+O to person and place and feels well today. Active problems - Computerized Problem List is [...] of knee s/p surgery on tanya knees 10. Benign prostatic hypertrophy with outflow obstruction s/p what sounds like a turp in 1998 11. Erectile dysfunction 12. SS - Spinal stenosis 13. Cat. - Cataract R 14. HL - Hearing loss Allergies: LATEX GLOVE The following VA and Non-VA meds were reconciled with patient: Active and Recently Outpatient Medications (excluding Supplies): Active Outpatient Medications Status 1) CARBAMIDE [...] SKIN IRRITATION Pending Outpatient Medications Status 1) CARBAMIDE PEROXIDE 6.5% OTIC SOLN INSTILL 5 DROPS PENDING INTO THE AFFECTED EAR(S) TWICE DAILY Active Non-VA Medications Status 1) Non-VA DOCUSATE NA 100MG CAP 100MG BY MOUTH ONCE ACTIVE DAILY NEEDED 2) Non-VA METOCLOPRAMIDE HCL 10MG TAB 10MG BY MOUTH ACTIVE THREE TIMES DAILY NEEDED 8 Total Medications HISTORY: PERIOD OF SERVICE - [employer] FROM Nov TO Sep COMBAT SERVICE INDICATED: No SH: MARITAL STATUS - Served in [facility] Lives in a modular 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 What brings you enrique? helicoptors Recent Falls Y( ) N(x Recent Infections Y( ) N(x Recent Hospitalizations Y ( ) N(x ADLS: Needs assistance with (x)ambulation (x) dressing (x)toileting ( )transferring (x) bathing ( ) feeding ( ) incontinence care Review of Systems: CONSTITUTIONAL: No recent weight change, no fever, no loss of appetite HEENT: +KASHIA No vision change, no blurring of vision no difficulty swallowing CARDIOVASCULAR: No cough, SOB, no chest pain, no palpitations GASTROINTESTINAL: No abdominal pain, bowels ok GENITOURINARY: No weak urine stream, no voiding dysfunction DERMATOLOGICAL: No new or changing skin lesions, no rash MUSCULOSKELETAL: No joint pain, no joint swelling, no muscle pain, no muscle weakness ENDOCRINE: no fatigue PSYCHIATRIC: No reported anxiety, no trouble sleeping, no depression NEUROLOGIC: No headache, no numbness, no tingling, no weakness, no memory loss, no dizziness VITAL SIGNS: B/P: 132/70 (05/11/2023 14:46) Pulse: 69 (05/11/2023 14:46) Temperature: 98.6 F [37.0 C] (05/11/2023 14:46) Weight: 188.9 lb [85.68 kg] (04/28/2023 13:30) Height: 72 in [182.9 cm] (08/14/2020 10:08) BMI: BMI: 25.7 Pain: 0 (05/11/2023 14:46) (0-10 scale) Pulse Ox:Measurement DT POx (L/MIN)(%) 05/11/2023 14:46 99 PE: GENERAL: Pt is appropriately dressed/groomed, good eye contact. NAD HEENT: normalcephalic, soft mobile palpable nodules to left thyroid, conj clear, Oropharynx clear, tongue moist, +KASHIA neck supple, no JVD, no carotid bruits SKIN: warm & dry, no rash CV: RRR, nl s1,s2 no M/G/R LUNGS: Clear to auscultation bilaterally, no use of accessory muscles ABD: NBS, soft, NT, ND, no masses or organomegaly appreciated EXTREMITIES: ENGLE, warm, no edema, +PP, +sensation NEURO/PSYCH: A+O to person and place, knows and location, mood/affect appropriate, thought/speech patterns Get up and go normal (x)with ( )without assistive device. ( )cane (x) walker Future Clinic Visits 10/04/2023 14:00 CWM/NO/AUDIOLOGY/DIAGNOST 10/04/2023 15:30 NHM/OPTOMETRY/BORASKI A/P: Active problems - Computerized Problem List is the source for the following: -thyroid nodule: soft tissue neck ordered, patient to obtain labs at that time, will f/u w Lakshmi once results are available -Alzheimer's disease: seen by neurology, cont w puzzles, word search HCP invoked for all healthcare decisionsPatient lacks decision making for: all Due to: cognitive impairment related to Alzhemiers disease >hx dehydration: Cont w electrolyte (low sodium/low sugar drinks) goal for 32-48 ounces fluid/day following low NA diet <2gm tongue moist -KASHIA: has hearing aides, f/u w ENT PRN, cont w ear lavages -Hiccups-intermittent. None reported since 04/21. Has reglan for PRN use. not needed -hx elevated BP: his lisinopril 10mg daily was stopped when had low BP last year. Cont to monitor and treat as warranted. has complex care needs and will benefit from ongoing interdisciplinary [facility] management., Treatmen plan included shared decision-making and is confirmed with Saxton/caregiver. All questions answered., Education provided regarding medication, including details regarding any changes. All questions answered. O2 safety addressed if applicable: Not applicable Life sustaining treatments/Goals of care conversation: LST/GOCC discussed today. No changes. Cognition: has diagnosis of dementia. Education on diagnosis and supportive care needs discussed with /caregiver. Counseled on importance of physical activity, healthy diet, socialization and mentally-engaging activities to optimize cognitive functioning. Functional independence: ADL assistance is needed. [facility] team to work with Saxton/caregiver to maximize functional independence. This may include caregiver training, adaptive equipment, referral for personal care assistance. Review of medical records: 10 min Time spent w patient including shared decision makin min Post visit documentation: 10 min F/U post U/S and 6-12 months, sooner PRN. Outpt. Medication Reconciliation: Outpatient Medication Reconciliation No [...] documented in this note. /lalo/ SARAY GARCIA RN,MSN,JAVA SOFTWARE DEVELOPER-C [facility] NURSE PRACTITIONER Signed: 05/11/2023 14:55 05/11/2023 ADDENDUM STATUS: COMPLETED -thyroid nodule: soft tissue neck ordered, patient to obtain labs at that time, will f/u w Lakshmi once results are available /lalo/ SARAY GARCIA RN,MSN,JAVA SOFTWARE DEVELOPER-C [facility] NURSE PRACTITIONER Signed: 05/11/2023 14:56 Receipt Acknowledged By: * AWAITING SIGNATURE * JODI SUTTON CYNT HIA IN CNTRL [facility]N [facility]
--- OUTSIDE RECORDS SUMMARY | 2024-03-07 06:46 | XMS_ITS | Encounter Summary ---
Author Name [facility] [place] Address [address] [place] [id number] Care Team Providers Care Power Driven Brush Maker Name Role Phone RAMONA HUNTER Primary Care [...] PART B Feb 27, 2017 PART B [id number] ARONGUS,GUSTAVO NRY PATIENT MEDICARE (WNR) MEDICARE (M) PART B Feb 27, 2017 PART B [id number] [phone] ARONGUS,GUSTAVO NRY PATIENT MEDICARE (WNR) MEDICARE (M) PART A Feb 27, 2001 PART A [id number] [phone] WILGUS,GUSTAVO NRY PATIENT MEDICARE (WNR) MEDICARE (M) PART A Feb 27, 2001 PART A [id number] [phone] WILGUS,HE NRY PATIENT Selected Encounter This section includes the information on record at [place] for the Encounter. Date/Time Encounter Type Encounter Description Reason Pro vider Source Jan 04, 2024 11:06 AM Outpatient Encounter COMMUNITY CARE CONSULT IHE Encounter Template Text not used by [place] Plan of Treatment: Future Appointments (+ 6 months) and Future Tests (+/- 45 days) The Plan of Treatment section includes future care activities for the patient from all [place] treatmentfacilities. This section includes future appointments and future orders which are active, pending or scheduled. Future Appointments This section includes appointments that were scheduled to occur 6 months from the date of the Encounter, up to a maximum of 20 appointments. The data comes from all [facility] facilities. Appointment Date/Time Appointment Type Appointme nt Facility Name Jan 11, 2024 11:25 AM AMBULATORY - MEDICINE [facility] Apr 24, 2024 03:00 PM AMBULATORY MEDICINE [facility] May 15, 2024 01:30 PM AMBULATORY MEDICINE [facility] Active, Pending, and Scheduled Orders This section includes a listing of several types of active, pending, and scheduled orders, including clinic medications orders, diagnostic test orders, procedure orders and consult orders; where the start date of the order is 45 days before the date of the Encounter or 45 days after the date of theEncounter. The data comes from all [facility]. Test Date/Time Test Type Test Details Facility Name Dec 21, 2023 12:00 AM Laboratory - Chemistry Order BASIC METABOLIC PANEL (non-fasting) BLOOD (SST-SERUM) SP [facility] Jan 15, 2024 01:29 PM Consult Order PODIATRY/NHM OUTPT Cons Soil Specialist's Choice [facility] Jan 19, 2024 12:00 AM Laboratory - Chemistry Order URINALYSIS CLEAN CATCH URINE SP [facility] Jan 19, 2024 12:00 AM Laboratory - Microbiology Order URINE CULTURE(MWROX) URINE CLEAN CATCH SP [facility] Lab Results: +/- 30 days of the encounter This section includes the Chemistry and Hematology Lab Results on record with [place] for the patient. Radiology Reports and Pathology Reports are provided separately, in subsequent sections. Lab Results This section contains the Chemistry/Hematology Results that were resulted 30 days before or 30 daysafter the date of the Encounter. Date/Time Source Result Type Result - Unit Interpretation Reference Range Comment Jan 12, 2024 12:30 PM [facility] T3, FREE (QU) Specimen Type: SERUM Comment: Test Performed by [employer] [facility], [employer] [facility], [address] [place] [address] Yobani Bill M.D., Ph.D., Director of Laboratories , [place] [id number] TEST PERFORMED AT: , Ordering Provider: Alex HUNTER Report Released Date/Time: Jan 16, 2024 08:59 AM Reporting Lab: [facility] [address] [facility] [address] Performing Lab: [facility] [address] [address] T3, FREE (QU) 2.8 pg/mL 2.3-4.2 Jan 12, 2024 12:30 PM [facility] THYROID T4 FREE(FT4) (WROX) Specimen Type: SERUM No comment entered. Ordering Provider: Alex HUNTER Report Released Date/Time: Jan 16, 2024 08:59 AM Reporting Lab: [facility] [address] [facility] [address] Performing Lab: [facility]ITALRINFIR[facility] HOSPITALTRN [facility] [address] [facility] [address] THYROID T4 FREE(FT4) (WROX) 1.01 ng/dL 0.6-1.6 Jan 12, 2024 12:30 PM [facility] TSH Specimen Type: SERUM No comment entered. Ordering Provider: Alex HUNTER Report Released Date/Time: Dec 21, 2023 12:51 PM Reporting Lab: [facility]OSPITALRWALK[facility]ENTERN [facility]ITALUSE[address] [address] Performing Lab: [facility] [address] [facility] [address] TSH 5.88 u[IU]/mL H 0.35-5.00 Jan 12, 2024 12:30 PM [facility] HOSPITALRL TRN [facility] VITAMIN B12 Specimen Type: SERUM No comment entered. Ordering Provider: Alex HUNTER Report Released Date/Time: Dec 21, 2023 12:51 PM Reporting Lab: [facility] HOSPITALRL TRN [facility] [address] [facility] [address] Performing Lab: [facility]OSPITALRINFIRMARY LTAC HOSPITALTRN [facility] [address] [facility] [address] VITAMIN B12 721 pg/mL 200-900 Jan 12, 2024 12:30 PM [facility] FOLATE (WROX) Specimen Type: SERUM No comment entered. Ordering Provider: Alex HUNTER Report Released Date/Time: Dec 21, 2023 12:51 PM Reporting Lab: [facility]OSPITALRINFIRMARY LTAC HOSPITALTRN [facility]ITAL[facility]ETS [facility] [address] [facility] [address] Performing Lab: [facility]OSPITALRWALKER BAP[facility] MEDICAL CENTERN [facility]ITALUSETS [facility] [address] [facility] [address] FOLATE (WROX) 16.68 ng/mL >5.2 Jan 12, 2024 12:30 PM [facility]ITAL[facility] MAGNESIUM Specimen Type: SERUM No comment entered. Ordering Provider: Alex HUNTER Report Released Date/Time: Dec 21, 2023 12:51 PM Reporting Lab: [facility]OSPITALRL TRN [place] [facility] [address] [facility] [address] Performing Lab: [facility] HOSPITALRL TRN [facility] [address] [facility] [address] MAGNESIUM 2.1 mg/dL 1.6-2.6 Jan 12, 2024 12:30 PM [facility] LIVER FUNCTION Specimen Type: SERUM No comment entered. Ordering Provider: Alex HUNTER Report Released Date/Time: Dec 21, 2023 12:51 PM Reporting Lab: [facility]OSPITALRINFIRMARY LTAC HOSPITALTRN [facility]ITALUSETS [facility] [address] [facility] [address] Performing Lab: [facility] [address] [facility] [address] PROTEIN,TOTAL 6.1 g/dL 6.0-8.3 ALBUMIN 3.2 g/dL L 3.5-5.0 ALKALINE PHOSPHATASE 59 U/L 40-150 AST 13 U/L 5-34 ALT 15 U/L BILIRUBIN, TOTAL 0.4 mg/dL 0.2-1.2 Jan 12, 2024 12:30 PM [facility] CBC AND DIFF (AUTO) Specimen Type: BLOOD No comment entered. Ordering Provider: Alex HUNTER Report Released Date/Time: Dec 21, 2023 12:51 PM Reporting Lab: [facility] [address] [facility] [address] Performing Lab: [facility] [address] [facility] [address] WBC 4.45 10*3/uL L 4.50-11.00 RBC 4.96 10*6/uL 4.23-5.66 HGB 14.8 g/dL 12.8-17 HCT 44.0 39.2-50.4 MCV 88.7 fL 82-99 MCHC 33.6 g/dL 30.8-35.1 PLT 222 10*3/uL 140-360 RDW-CV 13.6 12.0-16.0 MONO, ABS 0.36 10*3/uL 0.30-1.10 MCH 29.8 pg 26.2-32.6 NEUT % 57.6 43.7-75.8 LYMPH % 29.9 14.0-42.3 MONO % 8.1 5.1-13.7 EOS % 3.1 0.4-6.8 BASO % 1.1 0.1-2.0 NEUT, ABS 2.56 10*3/uL 2.20-7.60 LYMPH, ABS 1.33 10*3/uL 1.00-3.20 EOS, ABS 0.14 10*3/uL 0.03-0.44 BASO, ABS 0.05 10*3/uL 0.01-0.13 IMMATURE GRAN % 0.2 0.0-0.7 IMMATURE GRAN, ABS 0.01 10*3/uL 0.00-0.06 NRBC % 0.0 0.0-0.0 NRBC, ABS 0.00 10*3/uL 0.00-0.00 Social History: Smoking Status (Most current) and Tobacco Use (All prior to encounter date) This section includes the most current, and the historical, smoking and tobacco- related health factors from the [place] facility where the Encounter took place. Current Smoking Status This section includes the most current smoking, or tobacco-related health factor, from the [place] facility where the Encounter took place. Date/Time Current Smoking Status Comment Facil ity Dec 14, 2022 12:15 PM VA-TOBACCO NEVER USED [place] [employer] [facility] [employer] MarketNorth [employer] [facility] Tobacco Use History This section includes a history of the smoking, or tobacco-related health factors, that were collected on or before the date of the Encounter. The data comes from the [place] facility where the Encounter took place. Date/Time Smoking Status/Tobacco Use Comment F acility Jan 10, 2019 10:51 AM VA-TOBACCO NEVER USED [place] [employer] [facility]ellSA[facility] Bootleg MarketBROOKDALE [facility] Advance Directives: All historical and current Section Date Range: From patient's date of to the date document was created. This section includes ALL of a patient's completed or amended [place] Advance and Rescinded Directives. The entries below indicate that a directive exists for the patient, but an actual copy is not included with this document. The data comes from all [place] facilities. Date Advance Directives Provider Source Aug 14, 2020 ADVANCE DIRECTIVE CRISTOPHER BENITEZ Encounter Notes: All associated encounter notes This section contains the clinical notes associated to the Encounter. Date/Time Encounter Note(s) Provider Source Jan 04, 2024 11:06 AM NONVA NOTE: LOCAL TITLE: COMMUNITY CARE EMERGENCY TREATMENT STANDARD TITLE: NONVA NOTE DATE OF NOTE: JAN 04, 2024@11:06 ENTRY DATE: JAN 04, 2024@11:06:54 AUTHOR: XOCHITL BARKER COSIGNER: URGENCY: STATUS: COMPLETED COMMUNITY CARE EMERGENCY TREATMENT [facility] - [facility]TAKE SECTION: Facility: Hospital Notification Date: Nov@11:07 Method of Contact: Phone Call Point of Contact Name: Tee Point of Contact Dept: Emergency Point of Contact Phone #: NA Point of Contact Fax #: [facility] [place], [place] Name: Hospital: [facility], [place], [place] [phone] Address: City: [place] State: [place] Zip Code: Phone : Date Presenting to the Facility: Nov Chief Complaint: Other: R40.4 Patient Admitted? No ER Only Inter-facility transfer, info from hospital /lalo/ XOCHITL TRAN Signed: 01/04/2024 11:11 Receipt Acknowledged By: 01/15/2024 10:44 /es/ Marjorie MARIE,RN,CCM TRANSFER/TRAVELING COORDINATOR 01/23/2024 17:11 /lalo/ CHINO GARDNER Nurse Practitioner 01/23/2024 ADDENDUM STATUS: COMPLETED Please refer to 12/08/2023 non-VA hosp/ER note for [facility] discharge summary /lalo/ CHINO GARDNER Nurse Practitioner Signed: 01/23/2024 17:15 XOCHITL BARKER BEAMAN
--- OUTSIDE RECORDS SUMMARY | 2024-03-07 06:46 | XMS_ITS ---
Author Name [facility] [place] [facility] [place] Address [address] [place] [address] Care Team Providers Care Emergency Communications Operator Name Role Phone RAMONA HUNTER Primary [...] PART B Feb 27, 2017 PART B [id number] REJI,GUSTAVO NRY PATIENT MEDICARE (WNR) MEDICARE (M) PART B Feb 27, 2017 PART B [id number] REJI,GUSTAVO NRY PATIENT MEDICARE (WNR) MEDICARE (M) PART A Feb 27, 2001 PART A [id number] WILGUS,HE NRY PATIENT MEDICARE (WNR) MEDICARE (M) PART A Feb 27, 2001 PART A [id number] [phone] GUSTAVO MENDOZA PATIENT Selected Encounter This section includes the information on record at [place] for the Encounter. Date/Time Encounter Type Encounter Description Reason Pro vider Source Dec 12, 2023 07:11 AM Outpatient Encounter [facility] PHYSIC EXTND(REGISTERED OCCUPATIONAL THERAPIST,SUPERVISOR UNLOADING,PA) IHE Encounter Template Text not used by [place] Plan of Treatment: Future Appointments (+ 6 months) and Future Tests (+/- 45 days) The Plan of Treatment section includes future care activities for the patient from all [place] [facility]. This section includes future appointments and future orders which are active, pending or scheduled. Future Appointments This section includes appointments that were scheduled to occur 6 months from the date of the Encounter, up to a maximum of 20 appointments. The data comes from all [facility] facilities. Appointment Date/Time Appointment Type Appointme nt Facility Name Jan 11, 2024 11:25 AM AMBULATORY - MEDICINE [facility] Apr 24, 2024 03:00 PM AMBULATORY - MEDICINE [facility] May 15, 2024 01:30 PM AMBULATORY - MEDICINE [facility] Active, Pending, and Scheduled Orders This section includes a listing of several types of active, pending, and scheduled orders, including clinic medications orders, diagnostic test orders, procedure orders and consult orders; where the start date of the order is 45 days before the date of the Encounter or 45 days after the date of theEncounter. The data comes from all [facility]. Test Date/Time Test Type Test Details Facility Name Dec 21, 2023 12:00 AM Laboratory - Chemistry Order BASIC METABOLIC PANEL (non-fasting) BLOOD (SST-SERUM) SP [facility] Jan 15, 2024 01:29 PM Consult Order PODIATRY/[facility]M OUTPT Cons Cosmetic Surgeon's Choice [facility] Jan 19, 2024 12:00 AM Laboratory - Chemistry Order URINALYSIS CLEAN CATCH URINE [facility] Jan 19, 2024 12:00 AM Laboratory - Microbiology Order URINE CULTURE(MWROX) URINE CLEAN CATCH [facility] Vital Signs: All taken on the encounter date This section contains inpatient and outpatient Vital Signs collected on the date of the Encounter. Date/Time Temperature Pulse Blood Pressure Respiratory Rate SP02 Pain Height Weight Body Mass Index Source Dec 12, 2023 12:30 PM 97.4 70 110/70 16 96 0 [place] [employer] [address] [facility] Social History: Smoking Status (Most [...] 2022 12:15 PM VA-TOBACCO NEVER USED IN [employer] RuckusREHOBOTH MCKIN[facility]RI[facility] CARE SERVICESChicago [employer] [facility] Tobacco Use History This section includes a history of the smoking, or tobacco-related health factors, that were collected on or before the date of the Encounter. The data comes from the [place] facility where the Encounter took place. Date/Time Smoking Status/Tobacco Use Comment F acility Jan 10, 2019 10:51 AM VA-TOBACCO NEVER USED IN [employer] [facility] RuckusREHOBOTH MCKIN[facility] CHRIST[facility] HEALTH CARE SERVICESChicago [employer] [facility] Advance Directives: All historical and current Section Date Range: From patient's date of to the date document was created. This section includes ALL of a patient's completed or amended [place] Advance and Rescinded Directives. The entries below [...] Encounter. Date/Time Encounter Note(s) Provider Source Dec 12, 2023 07:11 AM ADMINISTRATIVE NOT E: LOCAL TITLE: FAX/MAIL RECEIVED STANDARD TITLE: ADMINISTRATIVE NOTE DATE OF NOTE: DEC 12, 2023@07:11 ENTRY DATE: DEC 12, 2023@07:11:45 AUTHOR: JOSHUA MOREJON COSIGNER: URGENCY: STATUS: COMPLETED Document Received On: Nov Document Type: Emergency Department Note Date of Service: Nov Facility and or Provider: [facility] Contact Information: PCP of Record: RAMONA HUNTER Next visit with PCP: 05/15/2024 13:30 CWM/NO/OTOLARYNGOLOGY 05/15/2024 14:30 [facility]M/OPTOMETRY/[facility] May keep copies of this document for up to 14 days and send the original for scanning. /laol/ JOSHUA MOREJON BATTERY ASSEMBLER [facility] Signed: 12/12/2023 07:13 Receipt Acknowledged By: 12/12/2023 10:40 /es/ JODI SUTTON RN [facility] land surveying survey worker 12/12/2023 07:14 /lalo/ SAUL MAGANA-C HBVICENTE NURSE PRACTITIONER for JOSHUA BOYER CNTRL [place]
--- OUTSIDE RECORDS SUMMARY | 2024-03-07 06:46 | XMS_ITS ---
Author Name [facility] [facility] [place] [facility] [place] Address [address] [place] [address] Care Team Providers Care Clinical Research Assistant Name Role Phone SARAY GARCIA Primary Care [...] PART B Feb 27, 2017 PART B [id number] REJI,GUSTAVO NRY PATIENT MEDICARE (WNR) MEDICARE (M) PART B Feb 27, 2017 PART B [id number] REJI,GUSTAVO NRY PATIENT MEDICARE (WNR) MEDICARE (M) PART A Feb 27, 2001 PART A [id number] WILGUS,HE NRY PATIENT MEDICARE (WNR) MEDICARE (M) PART A Feb 27, 2001 PART A [id number] [phone] GUSTAVO MENDOZA PATIENT Selected Encounter This section includes the information on record at [place] for the Encounter. 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 Date/Time Primary/Secondary Diagnosis Diagnosis Name Provider Source Jan 01, 2024 09:23 AM PRIMARY Mild cognitive impairment of uncertain or unknown etiology Alex GARCIA [place] [facility] [place] [facility] Jan 01, 2024 09:23 AM SECONDARY Alzheimer's disease, unspecified Alex GARCIA [place] [facility] [place] [facility] Jan 01, 2024 09:23 AM SECONDARY Constipation, unspecified Alex GARCIAWYZeina [place] [facility] [place] [facility] Jan 01, 2024 09:23 AM SECONDARY Dem in oth dis classd elswhr,unsp sev,w/o beh/psych/mood/an x Alex GARCIAWYZeina [place] [facility] [place] [facility] Plan of Treatment: Future Appointments (+ [...] 11, 2024 11:25 AM AMBULATORY - MEDICINE [place] [facility] [place] [facility] Apr 24, 2024 03:00 PM AMBULATORY - MEDICINE [place] [facility] [place] [facility] May 15, 2024 01:30 PM AMBULATORY - MEDICINE [facility] [place] [facility] Active, Pending, and Scheduled Orders This section includes a listing of several types of active, pending, and scheduled orders, including clinic medications orders, diagnostic test orders, procedure orders and consult orders; where the start date of the order is 45 days before the date of the Encounter or 45 days after the date of theEncounter. The data comes from all [place] treatment facilities. Test Date/Time Test Type Test Details Facility Name Dec 21, 2023 12:00 AM Laboratory - Chemistry Order BASIC METABOLIC PANEL (non-fasting) BLOOD (SST-SERUM) SP [facility] Jan 15, 2024 01:29 PM Consult Order PODIATRY/[facility] OUTPT Cons Video Camera Operator's Choice [facility] Jan 19, 2024 12:00 AM Laboratory - Chemistry Order URINALYSIS CLEAN CATCH URINE [facility] Jan 19, 2024 12:00 AM Laboratory - Microbiology Order URINE CULTURE(MWROX) URINE CLEAN CATCH SP [facility] Lab Results: +/- 30 days of the [...] Range Comment Jan 12, 2024 12:30 PM [facility] T3, FREE (QU) Specimen Type: SERUM Comment: Test Performed by [facility], [facility] [facility], [address] [place] [address] Yobani Bill M.D., Ph.D., Director of Laboratories , CLIA [id number] TEST PERFORMED AT: , Ordering Provider: Alex GARCIA Report Released Date/Time: Jan 16, 2024 08:59 AM Reporting Lab: [facility] [address] [facility] [address] Performing Lab: [facility] [address] [address] T3, FREE (QU) 2.8 pg/mL 2.3-4.2 Jan 12, 2024 12:30 PM [place] [facility] [place] [facility] THYROID T4 FREE(FT4) (WROX) Specimen Type: SERUM No comment entered. Ordering Provider: Alex GARCIA Report Released Date/Time: Jan 16, 2024 08:59 AM Reporting Lab: [place] [facility] [place] [facility] [address] [facility] [address] Performing Lab: [place] [facility] [place] [facility] [address] [facility] [address] THYROID T4 FREE(FT4) (WROX) 1.01 ng/dL 0.6-1.6 Jan 12, 2024 12:30 PM [facility] [place] [facility] TSH Specimen Type: SERUM No comment entered. Ordering Provider: Alex GARCIA Report Released Date/Time: Dec 21, 2023 12:51 PM Reporting Lab: [place] [facility] [place] [address] [address] Performing Lab: [place] [facility] [place] [address] [address] TSH 5.88 u[IU]/mL H 0.35-5.00 Jan 12, 2024 12:30 PM [facility] VITAMIN B12 Specimen Type: SERUM No comment entered. Ordering Provider: Alex GARCIA Report Released Date/Time: Dec 21, 2023 12:51 PM Reporting Lab: [place] [facility] [place] [address] [address] Performing Lab: [place] [facility] [place] [address] [address] VITAMIN B12 721 pg/mL 200-900 Jan 12, 2024 12:30 PM [facility] FOLATE (WROX) Specimen Type: SERUM No comment entered. Ordering Provider: Alex GARCIA Report Released Date/Time: Dec 21, 2023 12:51 PM Reporting Lab: [place] [facility] [place] [address] [address] Performing Lab: [facility] [address] [facility] [address] FOLATE (WROX) 16.68 ng/mL >5.2 Jan 12, 2024 12:30 PM [facility] MAGNESIUM Specimen Type: SERUM No comment entered. Ordering Provider: Alex GARCIA Report Released Date/Time: Dec 21, 2023 12:51 PM Reporting Lab: [address] [address] Performing Lab: [address] [address] MAGNESIUM 2.1 mg/dL 1.6-2.6 Jan 12, 2024 12:30 PM [facility] LIVER FUNCTION Specimen Type: SERUM No comment entered. Ordering Provider: Alex GARCIA Report Released Date/Time: Dec 21, 2023 12:51 PM Reporting Lab: [address] [address] Performing Lab: [address] [address] PROTEIN,TOTAL 6.1 g/dL 6.0-8.3 ALBUMIN 3.2 g/dL L 3.5-5.0 ALKALINE PHOSPHATASE 59 U/L 40-150 AST 13 U/L 5-34 ALT 15 U/L BILIRUBIN, TOTAL 0.4 mg/dL 0.2-1.2 Jan 12, 2024 12:30 PM [facility] CBC AND DIFF (AUTO) Specimen Type: BLOOD No comment entered. Ordering Provider: Alex GARCIA Report Released Date/Time: Dec 21, 2023 12:51 PM Reporting Lab: [address] [address] Performing Lab: [address] [address] WBC 4.45 10*3/uL L 4.50-11.00 RBC 4.96 [...] 2022 12:15 PM VA-TOBACCO NEVER USED [facility] Tobacco Use History This section includes a history of the smoking, or tobacco-related health factors, that were collected on or before the date of the Encounter. The data comes from the [place] facility where the Encounter took place. Date/Time Smoking Status/Tobacco Use Comment F acility Jan 10, 2019 10:51 AM [place]-TOBACCO NEVER USED [facility] Advance Directives: All historical and current Section [...] Encounter. Date/Time Encounter Note(s) Provider Source Jan 22, 2024 03:56 PM ADDENDUM: LOCAL TITLE: Addendum STANDARD TITLE: ADDENDUM DATE OF NOTE: JAN 22, 2024@15:56:43 ENTRY DATE: JAN 22, 2024@15:56:44 AUTHOR: KERI GARCIAIGNER: URGENCY: STATUS: COMPLETED Please mail to patient. Thank you. 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 Thyroid function is controlled by a gland just below the brain, known as the pituitary. The pituitary produces thyroid-stimulating hormone (TSH), which stimulates the thyroid to produce T3 and T4. Subclinical (very mild) hypothyroidism is diagnosed when the TSH is elevated but the T4 is still within the normal reference range for the population. No further intervention is required at this time. LAB CHEMISTRY & HEMATOLOGY Collection DT Specimen Test Name Result Units Ref Range 01/12/2024 12:30 SERUM !! T3, FREE (QU) 2.8 pg/mL 2.3 - 4.2 01/12/2024 12:30 SERUM Free T4 SR-REF 1.01 ng/dL 0.6 - 1.6 01/12/2024 12:30 SERUM VITAMIN B12 721 pg/mL 200 - 900 TSH 5.88 H uIU/mL 0.35 - 5.00 01/12/2024 12:30 SERUM FOLATE (WROX) 16.68 ng/mL Ref: >= 5.2 01/12/2024 12:30 SERUM PROTEIN,TOTAL 6.1 g/dL 6.0 - 8.3 ALBUMIN 3.2 L g/dL 3.5 - 5.0 ALK CHAU 59 U/L 40 - 150 AST 13 U/L 5 - 34 BILIRUBIN, TOTAL 0.4 mg/dL 0.2 - 1.2 ALT 15 U/L <6 - 55 MAGNESIUM 2.1 mg/dL 1.6 - 2.6 01/12/2024 12:30 BLOOD WBC 4.45 L K/cmm 4.50 - 11.00 RBC 4.96 M/cmm 4.23 - 5.66 HGB 14.8 g/dL 12.8 - 17 HCT 44.0 % 39.2 - 50.4 MCV 88.7 fl 82 - 99 MCH 29.8 pg 26.2 - 32.6 MCHC 33.6 g/dL 30.8 - 35.1 RDW-CV 13.6 % 12.0 - 16.0 PLT 222 K/cmm 140 - 360 NEUT % 57.6 % 43.7 - 75.8 LYMPH % 29.9 % 14.0 - 42.3 MONO % 8.1 % 5.1 - 13.7 EOS % 3.1 % 0.4 - 6.8 BASO % 1.1 % 0.1 - 2.0 IMMATURE GRAN % 0.2 % 0.0 - 0.7 NRBC % 0.0 % 0.0 - 0.0 NEUT, ABS 2.56 K/cmm 2.20 - 7.60 LYMPH, ABS 1.33 K/cmm 1.00 - 3.20 MONO, ABS 0.36 K/cmm 0.30 - 1.10 EOS, ABS 0.14 K/cmm 0.03 - 0.44 BASO, ABS 0.05 K/cmm 0.01 - 0.13 IMMATURE GRAN, AB 0.01 K/cmm 0.00 - 0.06 NRBC, ABS 0.00 K/cmm 0.00 - 0.00 Please call [phone] if you have any questions or concerns. Sincerely, Saray Garcia Nurse Practitioner [facility] [address] [place] [address] fax: [phone] Upcoming Appointments: 04/24/2024 15:00 CWM/NO/PODIATRY/NAIL 05/15/2024 13:30 CWM/NO/OTOLARYNGOLOGY 05/15/2024 14:30 NHM/OPTOMETRY/BORASKI APPOINTMENT [facility] (SPOPC OR SO = [address]) (GOPC OR GO = [address]) (NHM or NO = [facility]) (VVC - Video Call) (Tel-X Telephone Visit) ( - Telehealth) JEFF GARCIA [facility] [place] [facility] Jan 15, 2024 09:01 AM LETTERS: LOCAL TITLE: PATIENT LETTER (B) STANDARD TITLE: LETTERS DATE OF NOTE: JAN 15, 2024@09:01 ENTRY DATE: JAN 15, 2024@09:01:43 AUTHOR: KERI GARCIA COSIGNER: URGENCY: STATUS: COMPLETED PATIENT LETTER (B) Has ADDENDA [facility] [address] [place] [address] DILIA MENDOZA [address] [place], [place] [address] Date:JAN 22, 2024 Dear DILIA MENDOZA, 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 Thyroid function is controlled by a gland just below the brain, known as the pituitary. The pituitary produces thyroid-stimulating hormone (TSH), which stimulates the thyroid to produce T3 and T4. Subclinical (very mild) hypothyroidism is diagnosed when the TSH is elevated but the T4 is still within the normal reference range for the population. No further intervention is required at this time. LAB CHEMISTRY & HEMATOLOGY Collection DT Specimen Test Name Result Units Ref Range 01/12/2024 12:30 SERUM !! T3, FREE (QU) 2.8 pg/mL 2.3 - 4.2 01/12/2024 12:30 SERUM Free T4 SR-REF 1.01 ng/dL 0.6 - 1.6 01/12/2024 12:30 SERUM VITAMIN B12 721 pg/mL 200 - 900 TSH 5.88 H uIU/mL 0.35 - 5.00 01/12/2024 12:30 SERUM FOLATE (WROX) 16.68 ng/mL Ref: >= 5.2 01/12/2024 12:30 SERUM PROTEIN,TOTAL 6.1 g/dL 6.0 - 8.3 ALBUMIN 3.2 L g/dL 3.5 - 5.0 ALK CHAU 59 U/L 40 - 150 AST 13 U/L 5 - 34 BILIRUBIN, TOTAL 0.4 mg/dL 0.2 - 1.2 ALT 15 U/L <6 - 55 MAGNESIUM 2.1 mg/dL 1.6 - 2.6 01/12/2024 12:30 BLOOD WBC 4.45 L K/cmm 4.50 - 11.00 RBC 4.96 M/cmm 4.23 - 5.66 HGB 14.8 g/dL 12.8 - 17 HCT 44.0 % 39.2 - 50.4 MCV 88.7 fl 82 - 99 MCH 29.8 pg 26.2 - 32.6 MCHC 33.6 g/dL 30.8 - 35.1 RDW-CV 13.6 % 12.0 - 16.0 PLT 222 K/cmm 140 - 360 NEUT % 57.6 % 43.7 - 75.8 LYMPH % 29.9 % 14.0 - 42.3 MONO % 8.1 % 5.1 - 13.7 EOS % 3.1 % 0.4 - 6.8 BASO % 1.1 % 0.1 - 2.0 IMMATURE GRAN % 0.2 % 0.0 - 0.7 NRBC % 0.0 % 0.0 - 0.0 NEUT, ABS 2.56 K/cmm 2.20 - 7.60 LYMPH, ABS 1.33 K/cmm 1.00 - 3.20 MONO, ABS 0.36 K/cmm 0.30 - 1.10 EOS, ABS 0.14 K/cmm 0.03 - 0.44 BASO, ABS 0.05 K/cmm 0.01 - 0.13 IMMATURE GRAN, AB 0.01 K/cmm 0.00 - 0.06 NRBC, ABS 0.00 K/cmm 0.00 - 0.00 Please call [phone] if you have any questions or concerns. Sincerely, Saray Garcia Nurse Practitioner [facility] [address] [place] [address] fax: [phone] Upcoming Appointments: 04/24/2024 15:00 CWM/NO/PODIATRY/NAIL 05/15/2024 13:30 CWM/NO/OTOLARYNGOLOGY 05/15/2024 14:30 NHM/OPTOMETRY/BORASKI APPOINTMENT [facility] (SPOPC OR SO = [address]) (GOPC OR GO = [address]) ([facility] or NO = [facility]) (VVC - Video Call) (Tel-X Telephone Visit) (TH - Telehealth) 01/22/2024 ADDENDUM STATUS: COMPLETED Please mail to patient. Thank you. /lalo/ SARAY GARCIA RN,MSN,FILTER TIP CATCHER-C [facility] NURSE PRACTITIONER Signed: 01/22/2024 15:56 Receipt Acknowledged By: * AWAITING SIGNATURE * [employer] CYNT [place] [facility] [facility] Jan 01, 2024 09:27 AM LIFE-SUSTAINING TREATMENT PLAN: LOCAL TITLE: LIFE-SUSTAINING TREATMENT STANDARD TITLE: LIFE-SUSTAINING TREATMENT PLAN DATE OF NOTE: JAN 01, 2024@09:27 ENTRY DATE: JAN 01, 2024@09:27:57 AUTHOR: KERI GARCIA COSIGNER: URGENCY: STATUS: COMPLETED LIFE-SUSTAINING TREATMENT (LST) DECISION-MAKING CAPACITY TO MAKE DECISIONS ABOUT LIFE_SUSTAINING TREATMENTS Patient does not have capacity to make decisions about LSTs ;LST plan written based on discussion with surrogate. Additional Information: HCP Lakshmi Dhaliwal 'S VALUES AND GOALS OF CARE - Goals as reported by the patient (or surrogate): not to suffer LIFE-SUSTAINING TREATMENT PLAN * In the event of cardiopulmonary arrest: DNAR/DNR: Do not attempt CPR. Other Life-Sustaining Treatments: Mechanical Ventilation - In the event of respiratory distress or failure when the patient HAS A PULSE, the patient: Does NOT want invasive or non-invasive mechanical ventilation. Artificial Nutrition (enteral or parenteral) - The patient: Does NOT want artificial nutrition. Artificial Hydration (enteral, IV or subcutaneous) - The patient: Does NOT want artificial hydration, except if needed for comfort. Dialysis - The patient: Does NOT want dialysis. Transfers - The patient: Does NOT want transfers to hospital except if needed for comfort. INFORMED CONSENT Patient's surrogate gave oral informed consent for life-sustaining treatment plan. Surrogate's name and contact information: Lakshmi Dhaliwal STATE-AUTHORIZED PORTABLE ORDERS (RUDDY) - Completed and provided to the patient (or surrogate) -------- Time spent discussing and documenting this care planning activity. /lalo/ SARAY GARCIA RN,MSN,FILTER TIP CATCHER-C [facility] NURSE PRACTITIONER Signed: 01/01/2024 09:30 [facility] Jan 01, 2024 09:25 AM NONVA NOTE: LOCAL TITLE: OUT OF HOSPITAL ORDERS STANDARD TITLE: NONVA NOTE DATE OF NOTE: JAN 01, 2024@09:25 ENTRY DATE: JAN 01, 2024@09:25:19 AUTHOR: KERI GARCIA EXP COSIGNER: URGENCY: STATUS: COMPLETED MOLST sent to scan /lalo/ SARAY GARCIA RN,MSN,FILTER TIP CATCHER-C [facility] NURSE PRACTITIONER Signed: 01/01/2024 09:25 JEFF GARCIA [facility] Dec 28, 2023 09:00 AM [facility] NOTE: LOCAL TITLE: [facility] DIE LAY OUT WORKER PROGRESS NOTE STANDARD TITLE: [facility] NOTE DATE OF NOTE: DEC 28, 2023@09:00 ENTRY DATE: DEC 28, 2023@09:00:09 AUTHOR: KERI GARCIA EXP COSIGNER: URGENCY: STATUS: COMPLETED [place] was seen for: check in/update MOLST Identified by name, , address and facial recognition: Y VVC Ready: Yes [ ] No [x] HPI: Problem visit: Patient visit conducted to update MOLST w HCP as patient is going to [facility] in the near future. C/O constipation, Lakshmi would rather try maxamizing colace prior to adding another agent. [facility]. PMH: Active problems - [...] 19. HL - Hearing loss Allergies: LATEX GLOVE, AMIODARONE The following VA and Non-VA meds were reconciled with patient: Active and Recently Outpatient Medications (excluding Supplies): Active Outpatient Medications Status 1) APIXABAN 2.5MG TAB TAKE ONE TABLET BY MOUTH EVERY 12 ACTIVE HOURS FOR PREVENTION OF BLOOD CLOTS 2) CARBAMIDE PEROXIDE 6.5% OTIC SOLN INSTILL 5 DROPS ACTIVE INTO THE AFFECTED EAR(S) TWICE DAILY FOR EAR WAX BLOCKAGE 3) DOCUSATE NA 100MG CAP TAKE ONE CAPSULE BY MOUTH TWICE ACTIVE DAILY NEEDED FOR CONSTIPATION TO SOFTEN STOOL 4) MICONAZOLE NITRATE 2% TOP PWDR APPLY SMALL AMOUNT ACTIVE TOPICALLY TWICE DAILY NEEDED FOR FUNGAL INFECTION OF SKIN 5) MULTIVITAMIN/MINERALS CHEW TAB CHEW 1 TABLET BY MOUTH ACTIVE ONCE DAILY FOR VITAMIN SUPPLEMENTATION 6) NUTRITION SUPL ENSURE PLUS/SHIVA LIQUID DRINK 1 CAN BY ACTIVE MOUTH ONCE DAILY FOR NUTRITIONAL SUPPLEMENTATION 7) NYSTATIN 567091 UNT/GM CREAM APPLY A THIN LAYER ACTIVE TOPICALLY TWICE DAILY 8) PANTOPRAZOLE NA 40MG EC TAB TAKE ONE TABLET BY MOUTH ACTIVE TWICE DAILY FOR EXCESSIVE PRODUCTION OF STOMACH ACID 9) ZINC OXIDE 20% OINT APPLY THIN LAYER TOPICALLY ONCE ACTIVE DAILY NEEDED FOR SKIN IRRITATION Inactive Outpatient Medications Status 1) CARBOXYMETHYLCELLULOSE NA 0.5% OPH SOLN INSTILL 1 DROP INTO EACH EYE FOUR TIMES DAILY NEEDED FOR DRY EYE 10 Total Medications Recent Falls Y( ) N(x) Recent Infections Y( ) N(x) Recent Hospitalizations Y (x) N( ) Review of system: see HPI VITAL SIGNS: yesterday BP 138/72 HR 71 weight 183.6 B/P: 110/70 (12/12/2023 12:30) Pulse: 70 (12/12/2023 12:30) Temperature: 97.4 F [36.3 C] (12/12/2023 12:30) Weight: 184.5 lb [83.69 kg] (10/04/2023 14:53) Height: 72 in [182.9 cm] (08/14/2020 10:08) BMI: BMI: 25.1 Pain: 0 (12/12/2023 12:30) (0-10 scale) Examination: Lying in bed sleeping no respiratory disress, lungs CTA skin warm and dry mild erythemia to gluteal skin folds Future Clinic Visits 05/15/2024 13:30 CWM/NO/OTOLARYNGOLOGY 05/15/2024 14:30 NHM/OPTOMETRY/BORASKI All diagnostics from past month were reviewed with patient. Assessment/plan: >syncope: 01/04 hotler monitor x 2 weeks has f/u 02/23/24 >ALZ DZ >debility: pending [facility] >MOLST updated >constipation: trail colace 100mg am 200mg PM, monitor Return to clinic to see me per recall, sooner PRN. Review of medical records:5 min Time spent w patient including shared decision makin min Post visit documentation: [address] time: 30 min No barriers; Patient understands and agrees [...] documented in this note. /lalo/ SARAY GARCIA RN,MSN,FILTER TIP CATCHER-C [facility] NURSE PRACTITIONER Signed: 01/01/2024 09:23 JEFF GARCIA WYZeina [facility]
--- OUTSIDE RECORDS SUMMARY | 2024-03-07 06:46 | XMS_ITS | Encounter Summary ---
Author Name [facility] [place] Organization [place] Address [address] [place] [id number] Care Team Providers Care Social Staff Worker Name Role Phone RAMONA HUNTER Primary [...] PART B Feb 27, 2017 PART B [id number] WILGUS,HE NRY PATIENT MEDICARE (WNR) MEDICARE (M) PART B Feb 27, 2017 PART B [id number] WILGUS,HE NRY PATIENT MEDICARE (WNR) MEDICARE (M) PART A Feb 27, 2001 PART A [id number] WILGUS,HE NRY PATIENT MEDICARE (WNR) MEDICARE (M) PART A Feb 27, 2001 PART A [id number] WILGUS,HE NRY PATIENT Selected Encounter This section includes the information on record at [place] for the Encounter. Date/Time Encounter Type Encounter Description Reason Pro vider Source Jun 21, 2023 12:00 AM Outpatient Encounter EVENT (HISTORICAL) IHE Encounter Template Text not used by [place] Plan of Treatment: Future Appointments (+ 6 months) and Future Tests (+/- 45 days) The Plan of Treatment section includes future care activities for the patient from all [place] treatmentfacilities. This section includes future appointments and future orders which are active, pending or scheduled. Future Appointments This section includes appointments that were scheduled to occur 6 months from the date of the Encounter, up to a maximum of 20 appointments. The data comes from all [place] treatment facilities. Appointment Date/Time Appointment Type Appointme nt Facility Name July 11, 2023 01:45 PM AMBULATORY - MEDICINE [place] C [facility] [place] [facility] Oct 04, 2023 02:00 PM AMBULATORY - REHAB MEDICIN E [place] [facility] [place] [facility] Oct 04, 2023 03:00 PM AMBULATORY - MEDICINE RI C [facility] [place] Oct 04, 2023 03:30 PM AMBULATORY - MEDICINE RI C [facility] Oct 04, 2023 04:15 PM AMBULATORY - MEDICINE RI C [facility] Nov 28, 2023 08:00 AM AMBULATORY - MEDICINE [facility] [place] [facility] Dec 08, 2023 08:00 AM AMBULATORY - MEDICINE [facility] Dec 08, 2023 03:00 PM [facility] Lab Results: +/- 30 days of the encounter This section includes the Chemistry and Hematology Lab Results on record with [place] for the patient. Radiology Reports and Pathology Reports are provided separately, in subsequent sections. Lab Results This section contains the Chemistry/Hematology Results that were resulted 30 days before or 30 daysafter the date of the Encounter. Date/Time Source Result Type Result - Unit Interpretation Reference Range Comment May 23, 2023 02:11 PM [place] [facility] THYROID TOTAL T3 Specimen Type: SERUM No comment entered. Ordering Provider: Alex HUNTER Report Released Date/Time: May 11, 2023 02:45 PM Reporting [facility] [address] [facility] [address] Performing Lab: [place] [facility] [place] [facility] [address] [facility] [address] THYROID TOTAL T3 75.21 ng/dL 35-193 May 23, 2023 02:11 PM [facility] [place] [facility] THYROID T4 FREE(FT4) Specimen Type: SERUM No comment entered. Ordering Provider: Alex HUNTER Report Released Date/Time: May 11, 2023 02:45 PM Reporting Lab: [facility] [place] [facility] [address] [facility] [address] Performing Lab: [facility] [address] [address] THYROID T4 FREE(FT4) 1.03 ng/dL 0.6-1.6 May 23, 2023 02:11 PM [facility] TSH Specimen Type: SERUM No comment entered. Ordering Provider: Alex HUNTER Report Released Date/Time: May 11, 2023 02:45 PM Reporting Lab: [facility] [address] [facility] [address] Performing Lab: [facility] [address] [facility] [address] TSH 4.54 u[IU]/mL 0.35-5.00 May 23, 2023 02:11 PM [facility] PT & INR (PROTIME) Specimen Type: PLASMA No comment entered. Ordering Provider: Alex HUNTER Report Released Date/Time: May 11, 2023 02:45 PM Reporting Lab: [facility] [address] [facility] [address] Performing Lab: [facility] [address] [address] INR 1.0 PROTIME 11.8 s 10.0-13.1 May 23, 2023 02:11 PM [facility] CBC AND DIFF (AUTO) Specimen Type: BLOOD No comment entered. Ordering Provider: Alex HUNTER Report Released Date/Time: May 11, 2023 02:45 PM Reporting Lab: [facility] [address] [facility] [address] Performing Lab: [facility] [address] [facility] [address] WBC 6.36 10*3/uL 4.50-11.00 RBC 4.94 10*6/uL 4.23-5.66 HGB 14.7 g/dL 12.8-17 HCT 42.9 39.2-50.4 MCV 86.8 fL 82-99 MCHC 34.3 g/dL 30.8-35.1 PLT 226 10*3/uL 140-360 RDW-CV 13.2 12.0-16.0 [place], Abs 0.47 10*3/uL 0.30-1.10 MCH 29.8 pg 26.2-32.6 Neut % 69.4 43.7-75.8 Lymph % 21.5 14.0-42.3 [place] % 7.4 5.1-13.7 Eos % 0.6 0.4-6.8 [...] PM 98.2 66 140/70 16 98 0 [facility] Immunizations: All administered on the encounter date This section contains immunizations associated to the Encounter. Immunization Series Date Issued Reaction Comments TDAP Jun 21, 2023 Social History: Smoking Status (Most current) and [...] 2022 12:15 PM VA-TOBACCO NEVER USED [facility] Tobacco Use History This section includes a history of the smoking, or tobacco-related health factors, that were collected on or before the date of the Encounter. The data comes from the [place] facility where the Encounter took place. Date/Time Smoking Status/Tobacco Use Comment Dane acility Jan 10, 2019 10:51 AM VA-TOBACCO NEVER USED [facility] Advance Directives: All historical and [...] the Encounter. The data comes from all [place] treatment facilities. Date/Time Radiology Report Provider Source May 23, 2023 01:54 PM ULTRASOUND THYROID: DILIA MENDOZA BRIGID [id number] M Ex Date: MAY 23, 2023@13:54 Req Phys: RAMONA HUNTER Loc: CWM/NO/[facility]/PACT 2/SNP (Req'g Img Loc: ULTRASOUND Service: Unknown (Case [id number] COMPLETE) ULTRASOUND THYROID (US Detailed) CPT:47817 Reason for Study: evalute soft mobile nodules to left thyroid area Clinical History: patient will be in [place] 05/22 so this day is preferred Report Status: Verified Date Reported: MAY 23, 2023 Date Verified: MAY 23, 2023 Cylinder Batcher E-Sig:/ES/MORENA RUIZ JR Report: Study: Thyroid ultrasound. [...] Committee. Tessler et al., Journal of the [place] [employer] 2017;14:587-595. Primary Diagnostic Code: No immediate attention required Primary Interpreting Staff: MORENA RUIZ JR, Radiologist (Cylinder Batcher) /MORENA CAMPBELL JR [facility] [place] [facility]
--- OUTSIDE RECORDS SUMMARY | 2024-03-07 06:46 | XMS_ITS ---
Author Name Department of Vetera [facility] [place] Organization [place] Address [address] [place] [id number] Care Team Providers Care Manager Workers Compensation Name Role Phone SARAY GARCIA Primary Care [...] PART B Feb 27, 2017 PART B [id number] ARONGUS,GUSTAVO NRY PATIENT MEDICARE (WNR) MEDICARE (M) PART B Feb 27, 2017 PART B [id number] WILGUS,GUSTAVO NRY PATIENT MEDICARE (WNR) MEDICARE (M) PART A Feb 27, 2001 PART A [id number] WILGUS,HE NRY PATIENT MEDICARE (WNR) MEDICARE (M) PART A Feb 27, 2001 PART A [id number] WILGUS,HE NRY PATIENT Selected Encounter This section includes the information on record at [place] for the Encounter. Date/Time Encounter Type Encounter Description Reason Provider Source Dec 12, 2023 12:30 PM MEASURE BLOOD OXYGEN LEVEL [facility] Nursing (RN / LP) ICD-10-CM I48.91 Unspecified atrial fibrillation JODI ZELAYA Yg Encounter Template Text not used by [place] Assessments - Encounter Diagnoses This section includes the primary and secondary diagnoses documented for the Encounter. Date/Time Primary/Secondary Diagnosis Diagnosis Name Provider Source Dec 14, 2023 04:47 PM PRIMARY Unspecified atrial fibrillation [facility] Dec 14, 2023 04:47 PM SECONDARY Alzheimer's disease, unspecified [facility] Dec 14, 2023 04:47 PM SECONDARY Dem in oth dis classd elswhr,unsp sev,w/o beh/psych/mood/anx [facility] Dec 14, 2023 04:47 PM SECONDARY Encounter for immunization [facility] Plan of Treatment: Future Appointments (+ 6 months) and Future Tests (+/- 45 days) The Plan of Treatment section includes future care activities for the patient from all [place] [facility] This section includes future appointments and future [...] 2024 11:25 AM AMBULATORY - MEDICINE [facility] [place] [facility] Apr 24, 2024 03:00 PM AMBULATORY - MEDICINE [facility] [place] [facility] May 15, 2024 01:30 PM AMBULATORY MEDICINE [facility] NTR [facility] Active, Pending, and Scheduled Orders This section includes a listing of several types of active, pending, and scheduled orders, including clinic medications orders, diagnostic test orders, procedure orders and consult orders; where the start date of the order is 45 days before the date of the Encounter or 45 days after the date of theEncounter. The data comes from all [place] treatment facilities. Test Date/Time Test Type Test Details Facility Name Dec 21, 2023 12:00 AM Laboratory - Chemistry Order BASIC METABOLIC PANEL (non-fasting) BLOOD (SST-SERUM) SP ID [facility] [place] [facility] Jan 15, 2024 01:29 PM Consult Order PODIATRY/NHM OUTPT Cons Marker Delivery's Choice ID [facility] [facility] Jan 19, 2024 12:00 AM Laboratory - Chemistry Order URINALYSIS CLEAN CATCH URINE SP ID [facility] [facility] Jan 19, 2024 12:00 AM Laboratory - Microbiology Order URINE CULTURE(MWROX) URINE CLEAN CATCH SP ID [facility] [place] [facility] Vital Signs: All taken on the encounter date This section contains inpatient and outpatient Vital Signs collected on the date of the Encounter. Date/Time Temperature Pulse Blood Pressure Respiratory Rate SP02 Pain Height Weight Body Mass Index Source Dec 12, 2023 12:30 PM 97.4 70 110/70 16 96 0 ID [facility] [place] [facility] Immunizations: All administered on the encounter date This section contains immunizations associated to the Encounter. Immunization Series Date Issued Reaction Comments INFLUENZA, HIGH-DOSE, TRIVALENT, PF Dec 11 Social History: Smoking Status (Most current) and [...] 14, 2022 12:15 PM [facility]TOBACCO [facility] [place] [facility] Tobacco Use History This section includes a history of the smoking, or tobacco-related health factors, that were collected on or before the date of the Encounter. The data comes from the [place] facility where the Encounter took place. Date/Time Smoking Status/Tobacco Use Comment F acility Jan 10, 2019 10:51 AM VA-TOBACCO [facility] [place] [facility] Advance Directives: All historical and current Section [...] Encounter. Date/Time Encounter Note(s) Provider Source Dec 14, 2023 05:05 PM PREVENTIVE MEDICINE NURSING NOTE: LOCAL TITLE: CLINICAL REMINDERS/NURSING STANDARD TITLE: PREVENTIVE MEDICINE NURSING NOTE DATE OF NOTE: DEC 14, 2023@17:05 ENTRY DATE: DEC 14, 2023@17:05:54 AUTHOR: RAÚL FONG EXP COSIGNER: URGENCY: STATUS: COMPLETED Influenza Immunization: Influenza, High-Dose, Trivalent, Preservative Free (Fluzone-Syringe) Administered: INFLUENZA, HIGH-DOSE, TRIVALENT, PF Date Administered: Dec 12, 2023 12:30 Stonework Supervisor: SANOFI PASTEUR Lot: [id number] Exp Date: Aug 26, 2024 [facility]: [phone] Admin Route/Site: INTRAMUSCULAR/LEFT DELTOID Dosage: 0.5mL Vaccine Information Statement(s): INFLUENZA(FLU) VACC(INACTIVATED OR RECOMBINANT)VIS Oct 02, 2020 (RUSSIAN) Order By: Policy Administered By: Jodi Fong The Influenza Vaccine Information Statement (VIS) was reviewed with the patient/caregiver which lists the benefits and risks of the vaccine and the risks of not receiving the Influenza vaccine. The patient/caregiver denied any prior severe reaction to this vaccine or its components or a severe allergic reaction, such as anaphylaxis, to any vaccine or any injectable therapy. The patient/caregiver gave verbal consent to receive the vaccine. /lalo/ JODI FONG RN [facility] miller helper Signed: 12/14/2023 17:06 Receipt Acknowledged By: 12/25/2023 12:32 /lalo/ AYAKA [employer] [facility] [employer] [facility] [place] [facility] Dec 14, 2023 04:59 PM ADDENDUM: LOCAL TITLE: Addendum STANDARD TITLE: ADDENDUM DATE OF NOTE: DEC 14, 2023@16:59:27 ENTRY DATE: DEC 14, 2023@16:59:28 AUTHOR: RAÚL FONG COSIGNER: URGENCY: STATUS: COMPLETED SO Lakshmi received call from [facility] and was ask to fill more paperwork. Inquiring if SW could give her a call to answer any questions she might have regarding this process. Thank you. /es/ JODI FONG RN [facility] miller helper Signed: 12/14/2023 17:00 Receipt Acknowledged By: 12/15/2023 08:11 /es/ ESTEPHANIE DANIELLE VICENTE Vacuum Pan Operator --- Original Document --- 12/12/23 GIOVANNY RN PROGRESS NOTE: Nursing Progress Note Active and Recently Outpatient Medications (including Supplies): Active Outpatient Medications Status 1) APIXABAN 2.5MG TAB TAKE ONE TABLET BY MOUTH EVERY 12 ACTIVE HOURS FOR PREVENTION OF BLOOD CLOTS 2) BRIEF,PROTECTIVE SUPER ABS LG ATTENDS USE 1 BRIEF ACTIVE (S) DIRECTED THREE TIMES DAILY NEEDED FOR PERSONAL CARE 3) CARBAMIDE PEROXIDE 6.5% OTIC SOLN INSTILL 5 DROPS ACTIVE INTO THE AFFECTED EAR(S) TWICE DAILY FOR EAR WAX BLOCKAGE 4) CARBOXYMETHYLCELLULOSE NA 0.5% OPH SOLN INSTILL 1 ACTIVE DROP INTO EACH EYE FOUR TIMES DAILY NEEDED FOR DRY EYE 5) CLEANSING CLOTH ATTENDS PKT USE ONE WASHCLOTH ACTIVE DIRECTED ONCE DAILY NEEDED 6) DOCUSATE NA 100MG CAP TAKE ONE CAPSULE BY MOUTH TWICE ACTIVE DAILY NEEDED FOR CONSTIPATION TO SOFTEN STOOL 7) GLOVE NITRILE MED PFREE NSTERILE TX USE GLOVE(S) ONCE ACTIVE DAILY NEEDED 8) INCONT LINER DEPEND GUARDS USE 1 PAD TOPICALLY TWICE ACTIVE DAILY NEEDED 9) MICONAZOLE NITRATE 2% TOP PWDR APPLY SMALL AMOUNT ACTIVE TOPICALLY TWICE DAILY NEEDED FOR FUNGAL INFECTION OF SKIN 10) MULTIVITAMIN/MINERALS CHEW TAB CHEW 1 TABLET BY MOUTH ACTIVE ONCE DAILY FOR VITAMIN SUPPLEMENTATION 11) NUTRITION SUPL ENSURE PLUS/SHIVA LIQUID DRINK 1 CAN BY ACTIVE MOUTH ONCE DAILY FOR NUTRITIONAL SUPPLEMENTATION 12) NYSTATIN 928023 UNT/GM CREAM APPLY A THIN LAYER ACTIVE [...] ONCE ACTIVE DAILY NEEDED 16 Total Medications MEDICATION REVIEW Medication review completed [...] in patient's home at time of visit. [place] identified by: Full Name, Address, Facial Recognition Length of visit in home: 30 min Problem addressed for this visit: Flu vaccine, Chronic disease management NURSING SUMMARY: Visit made to home for Flu vaccine, Chronic disease management and post ER visit follow up. sitting in sofa upon nurse arrival, SO Lakshmi and DERIK Gonzalez present for visit. [place] alert and oriented to self. was taken to hospital from audiology appointment as he had an episode of loss of consciousness while having hearing aids fitted. 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 [place] is home and at baseline. VSS this visit. No c/o pain. Flu vaccine administered to left deltoid, tolerated well. Immunization information given to vet and caregiver. No falls, and No hospitalizations. Upcoming appointment on 01/04 to have heart monitor placed for two weeks. Blood Pressure: 110/70 (12/12/2023 12:30) Pulse: 70 (12/12/2023 12:30) Respiration: 16 (12/12/2023 12:30) Temperature: 97.4 F [36.3 C] (12/12/2023 12:30) Pain Score: 0 (12/12/2023 12:30) EXAMINATION: Lungs: Clear Edema: none HR: 70, denies chest pain Bowel/Bladder: Regular bowel and bladder reported. No s/s of UTI. Denies constipation Skin: Discolored area to coccyx with some dryness and itchy. caregiver has been using barrier cream only but has antifungal powder prn. Nurse advised to use antifungal powder for a few days and report if no improvement. Home Safety FALLS NO INFECTIONS NO ER/HOSPITALIZATIONS YES: PLEASE REVIEW [facility] (OR HOME CARE) ER/HOSPITALIZATION PROGRESS NOTE; (WHEN AVAILABLE) Teaching/goals: See nursing summary above Patient verbalizes understanding to above and will call with any concerns or changes in condition. For emergent care call 911. Plan for next visit: ear irrigation and covid booster scheduled for 01/11lalo/ JODI FONG RN [facility] miller helper Signed: 12/14/2023 16:[address] [facility] [place] [facility] Dec 12, 2023 12:30 PM [facility] NURSING NOTE: LOCAL TITLE: [facility] RN PROGRESS NOTE STANDARD TITLE: [facility] NURSING NOTE DATE OF NOTE: DEC 12, 2023@12:30 ENTRY DATE: DEC 14, 2023@16:48:28 AUTHOR: RAÚL FONG EXP COSIGNER: URGENCY: STATUS: COMPLETED [facility] RN PROGRESS NOTE Has ADDENDA Nursing Progress Note Active and Recently Outpatient Medications (including Supplies): Active Outpatient Medications Status 1) APIXABAN 2.5MG TAB TAKE ONE TABLET BY MOUTH EVERY 12 ACTIVE HOURS FOR PREVENTION OF BLOOD CLOTS 2) BRIEF,PROTECTIVE SUPER ABS LG ATTENDS USE 1 BRIEF ACTIVE (S) DIRECTED THREE TIMES DAILY NEEDED FOR PERSONAL CARE 3) CARBAMIDE PEROXIDE 6.5% OTIC SOLN INSTILL 5 DROPS ACTIVE INTO THE AFFECTED EAR(S) TWICE DAILY FOR EAR WAX BLOCKAGE 4) CARBOXYMETHYLCELLULOSE NA 0.5% OPH SOLN INSTILL 1 ACTIVE DROP INTO EACH EYE FOUR TIMES DAILY NEEDED FOR DRY EYE 5) CLEANSING CLOTH ATTENDS PKT USE ONE WASHCLOTH ACTIVE DIRECTED ONCE DAILY NEEDED 6) DOCUSATE NA 100MG CAP TAKE ONE CAPSULE BY MOUTH TWICE ACTIVE DAILY NEEDED FOR CONSTIPATION TO SOFTEN STOOL 7) GLOVE NITRILE MED PFREE NSTERILE TX USE GLOVE(S) ONCE ACTIVE DAILY NEEDED 8) INCONT LINER DEPEND GUARDS USE 1 PAD TOPICALLY TWICE ACTIVE DAILY NEEDED 9) MICONAZOLE NITRATE 2% TOP PWDR APPLY SMALL AMOUNT ACTIVE TOPICALLY TWICE DAILY NEEDED FOR FUNGAL INFECTION OF SKIN 10) MULTIVITAMIN/MINERALS CHEW TAB CHEW 1 TABLET BY MOUTH ACTIVE ONCE DAILY FOR VITAMIN SUPPLEMENTATION 11) NUTRITION SUPL ENSURE PLUS/SHIVA LIQUID DRINK 1 CAN BY ACTIVE MOUTH ONCE DAILY FOR NUTRITIONAL SUPPLEMENTATION 12) NYSTATIN 200168 UNT/GM CREAM APPLY A THIN LAYER ACTIVE [...] ONCE ACTIVE DAILY NEEDED 16 Total Medications MEDICATION REVIEW Medication review completed [...] in patient's home at time of visit. [place] identified by: Full Name, Address, Facial Recognition Length of visit in home: 30 min Problem addressed for this visit: Flu vaccine, Chronic disease management NURSING SUMMARY: Visit made to home for Flu vaccine, Chronic disease management and post ER visit follow up. sitting in sofa upon nurse arrival, SO Lakshmi and DERIK Gonzalez present for visit. [place] alert and oriented to self. was taken to hospital from audiology appointment as he had an episode of loss of consciousness while having hearing aids fitted. 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 [place] is home and at baseline. VSS this visit. No c/o pain. Flu vaccine administered to left deltoid, tolerated well. Immunization information given to vet and caregiver. No falls, and No hospitalizations. Upcoming appointment on 01/04 to have heart monitor placed for two weeks. Blood Pressure: 110/70 (12/12/2023 12:30) Pulse: 70 (12/12/2023 12:30) Respiration: 16 (12/12/2023 12:30) Temperature: 97.4 F [36.3 C] (12/12/2023 12:30) Pain Score: 0 (12/12/2023 12:30) EXAMINATION: Lungs: Clear Edema: none HR: 70, denies chest pain Bowel/Bladder: Regular bowel and bladder reported. No s/s of UTI. Denies constipation Skin: Discolored area to coccyx with some dryness and itchy. caregiver has been using barrier cream only but has antifungal powder prn. Nurse advised to use antifungal powder for a few days and report if no improvement. Home Safety FALLS NO INFECTIONS NO ER/HOSPITALIZATIONS YES: PLEASE REVIEW [facility] (OR HOME CARE) ER/HOSPITALIZATION PROGRESS NOTE; (WHEN AVAILABLE) Teaching/goals: See nursing summary above Patient verbalizes understanding to above and will call with any concerns or changes in condition. For emergent care call 911. Plan for next visit: ear irrigation and covid booster scheduled for 01/11 /FLORI Fallon miller helper Signed: 12/14/2023 16:59 12/14/2023 ADDENDUM STATUS: COMPLETED SO Lakshmi received call from [facility] and was ask to fill more paperwork. Inquiring if SW could give her a call to answer any questions she might have regarding this process. Thank you. /FLORI Fallon miller helper Signed: 12/14/2023 17:00 Receipt Acknowledged By: * AWAITING SIGNATURE * FABI [place] [facility] Dec 12, 2023 12:30 PM HB NOTE: LOCAL TITLE: [facility] NOTIFICATION STANDARD TITLE: HB NOTE DATE OF NOTE: DEC 12, 2023@12:30 ENTRY DATE: DEC 14, 2023@17:01:30 AUTHOR: RAÚL FONG EXP COSIGNER: URGENCY: STATUS: COMPLETED hat brusher machine: Jodi Fong RN Provider: Saray Garcia NP Reason for Admission: loss of consciousness with loss BP r/t stimulation a vagus nerve Facility Admitted to: [facility] Date of Admission: 12/08/23 Date of Discharge: 12/08/23 Covid-19 Testing Performed: No Unknown Current Status of Patient: Home Is Community [facility] providing care in the home: No Request for records made to Right : Comments: d/c paperwork available /FLORI Fallon miller helper Signed: 12/14/2023 17:05 Receipt Acknowledged By: 12/25/2023 16:20 /lalo/ [employer]YAKA [employer] [facility] CRISTOBAL FONG [facility]
--- OUTSIDE RECORDS SUMMARY | 2024-03-07 06:46 | XMS_ITS | Encounter Summary ---
Author Name [place] Address [address] [place] [id number] Care Team Providers Care Hole Digger Name Role Phone RAMONA HUNTER Primary Care [...] PART B Feb 27, 2017 PART B [id number] ARONGUS,GUSTAVO NRY PATIENT MEDICARE (WNR) MEDICARE (M) PART B Feb 27, 2017 PART B [id number] [phone] ARONGUS,GUSTAVO NRY PATIENT MEDICARE (WNR) MEDICARE (M) PART A Feb 27, 2001 PART A [id number] [phone] WILGUS,GUSTAVO NRY PATIENT MEDICARE (WNR) MEDICARE (M) PART A Feb 27, 2001 PART A [id number] WILGUS,HE NRY PATIENT Selected Encounter This section includes the information on record at [place] for the Encounter. Date/Time Encounter Type Encounter Description Reason Pro vider Source Jan 01, 2024 09:24 AM Outpatient Encounter COMMUNITY CARE CONSULT IHE [...] 20 appointments. The data comes from all [facility] facilities. Appointment Date/Time Appointment Type Appointme nt Facility Name Jan 11, 2024 11:25 AM AMBULATORY - MEDICINE [facility] Apr 24, 2024 03:00 PM AMBULATORY MEDICINE [facility] May 15, 2024 01:30 PM AMBULATORY MEDICINE [facility] Active, Pending, and Scheduled Orders This section includes a listing of several types of active, pending, and scheduled orders, including clinic medications orders, diagnostic test orders, procedure orders and consult orders; where the start date of the order is 45 days before the date of the Encounter or 45 days after the date of theEncounter. The data comes from all [facility] [address]. Test Date/Time Test Type Test Details Facility Name Dec 21, 2023 12:00 AM Laboratory - Chemistry Order BASIC METABOLIC PANEL (non-fasting) BLOOD (SST-SERUM) [facility] Jan 15, 2024 01:29 PM Consult Order PODIATRY/NHM OUTPT Cons Aluminum Boat Inspector's Choice [facility] Jan 19, 2024 12:00 AM Laboratory - Chemistry Order URINALYSIS CLEAN CATCH URINE SP [facility] Jan 19, 2024 12:00 AM Laboratory - Microbiology Order URINE CULTURE(MWROX) URINE CLEAN CATCH SP [facility] Lab Results: +/- 30 days of [...] Range Comment Jan 12, 2024 12:30 PM [facility] T3, FREE (QU) Specimen Type: SERUM Comment: Test Performed by [facility], [employer] [facility], [address] [place] [address] Yobani Bill M.D., Ph.D., Director of Laboratories , [place] [id number] TEST PERFORMED AT: , Ordering Provider: Alex HUNTER Report Released Date/Time: Jan 16, 2024 08:59 AM Reporting Lab: [facility] [address] [facility] [address] Performing Lab: [facility] [address] [address] T3, FREE (QU) 2.8 pg/mL 2.3-4.2 Jan 12, 2024 12:30 PM [facility] THYROID T4 FREE(FT4) (WROX) Specimen Type: SERUM No comment entered. Ordering Provider: Alex HUNTER Report Released Date/Time: Jan 16, 2024 08:59 AM Reporting Lab: [facility] [address] [facility] [address] Performing Lab: [facility] [address] [facility] [address] THYROID T4 FREE(FT4) (WROX) 1.01 ng/dL 0.6-1.6 Jan 12, 2024 12:30 PM [facility] VITAMIN B12 Specimen Type: SERUM No comment entered. Ordering Provider: Alex HUNTER Report Released Date/Time: Dec 21, 2023 12:51 PM Reporting Lab: [facility] [address] [facility] [address] Performing Lab: [facility]USEBRITT[facility] [address] [facility] [address] VITAMIN B12 721 pg/mL 200-900 Jan 12, 2024 12:30 PM [facility] TSH Specimen Type: SERUM No comment entered. Ordering Provider: Alex HUNTER Report Released Date/Time: Dec 21, 2023 12:51 PM Reporting Lab: [facility] TRN [facility] [address] [facility] [address] Performing Lab: [place] [facility] [address] [facility] [address] TSH 5.88 u[IU]/mL H 0.35-5.00 Jan 12, 2024 12:30 PM [facility] FOLATE (WROX) Specimen Type: SERUM No comment entered. Ordering Provider: Alex HUNTER Report Released Date/Time: Dec 21, 2023 12:51 PM Reporting Lab: [facility] [place] [facility] [address] [facility] [address] Performing Lab: [facility] [address] [facility] [address] FOLATE (WROX) 16.68 ng/mL >5.2 Jan 12, 2024 12:30 PM [facility]ERN [facility] MAGNESIUM Specimen Type: SERUM No comment entered. Ordering Provider: Alex HUNTER Report Released Date/Time: Dec 21, 2023 12:51 PM Reporting Lab: [place] [facility] [address] [facility] [address] Performing Lab: [facility] TRN [facility] [address] [address] MAGNESIUM 2.1 mg/dL 1.6-2.6 Jan 12, 2024 12:30 PM [facility] LIVER FUNCTION Specimen Type: SERUM No comment entered. Ordering Provider: Alex HUNTER Report Released Date/Time: Dec 21, 2023 12:51 PM Reporting Lab: [facility] TRN [facility] [address] [address] Performing Lab: [facility] [address] [facility] [address] PROTEIN,TOTAL 6.1 g/dL 6.0-8.3 ALBUMIN 3.2 g/dL L 3.5-5.0 ALKALINE PHOSPHATASE 59 U/L 40-150 AST 13 U/L 5-34 ALT 15 U/L BILIRUBIN, TOTAL 0.4 mg/dL 0.2-1.2 Jan 12, 2024 12:30 PM [facility] CBC AND DIFF (AUTO) Specimen Type: BLOOD No comment entered. Ordering Provider: Alex HUNTER Report Released Date/Time: Dec 21, 2023 12:51 PM Reporting Lab: [facility] [address] [facility] [address] Performing Lab: [facility] [address] [facility] [address] WBC 4.45 10*3/uL L 4.50-11.00 RBC 4.96 [...] 2022 12:15 PM VA-TOBACCO NEVER USED [place] [facility] NaldoNexDefense [facility] Tobacco Use History This section includes a history of the smoking, or tobacco-related health factors, that were collected on or before the date of the Encounter. The data comes from the [place] facility where the Encounter took place. Date/Time Smoking Status/Tobacco Use Comment F acility Jan 10, 2019 10:51 AM VA-TOBACCO NEVER USED [place] [facility] NaldoCORDELL MEMORIAL H[facility] – CORDELLNanovi [facility] Advance Directives: All historical and [...] Encounter. Date/Time Encounter Note(s) Provider Source Jan 01, 2024 09:24 AM NONVA NOTE: LOCAL TITLE: COMMUNITY CARE-CARE COORDINATION PLAN NOTE STANDARD TITLE: NONVA NOTE DATE OF NOTE: JAN 01, 2024@09:24 ENTRY DATE: JAN 01, 2024@09:24:48 AUTHOR: SOFYA MCCORMICK EXP COSIGNER: URGENCY: STATUS: COMPLETED Raj from [facility] requesting continuation of care consult for upcoming appt 01/11/24 @ 11:[address] Gallagher. Previous consult Expiration Date: 2024-01-07. If PCP in agreement, please enter new referral. Thank you [facility] [address] [place] [id number] FAX: [phone] /lalo/ SOFYA MCCROMICK [facility] BSN RN EMELIA Signed: 01/01/2024 09:26 Receipt Acknowledged By: 01/01/2024 14:52 /es/ JODI SUTTON RN [facility] barrel waterer 01/01/2024 10:21 /es/ RAMONA HUNTER RN,MSN,SWITCH CLEANER-C [facility] NURSE PRACTITIONER SOFYA MCCORMICK [place] CN[facility]L [facility]
--- OUTSIDE RECORDS SUMMARY | 2024-03-07 06:46 | XMS_ITS | Encounter Summary ---
Author Name Department [place] Organization [place] Address [address] [place] [address] Care Team Providers Care Business Services Intern Name Role Phone RAMONA HUNTER Primary [...] PART B Feb 27, 2017 PART B [id number] [phone] WILGUS,HE NRY PATIENT MEDICARE (WNR) MEDICARE (M) PART B Feb 27, 2017 PART B [id number] [phone] WILGUS,HE NRY PATIENT MEDICARE (WNR) MEDICARE (M) PART A Feb 27, 2001 PART A [id number] WILGUS,HE NRY PATIENT MEDICARE (WNR) MEDICARE (M) PART A Feb 27, 2001 PART A [id number] WILGUS,HE NRY PATIENT Selected Encounter This section includes the information on record at [place] for the Encounter. Date/Time Encounter Type Encounter Description Reason Pro vider Source Dec 08, 2023 12:00 AM Outpatient Encounter EVENT (HISTORICAL) [...] 20 appointments. The data comes from all [facility] facilities. Appointment Date/Time Appointment Type Appointme nt Facility Name Jan 11, 2024 11:25 AM AMBULATORY - MEDICINE [facility] Apr 24, 2024 03:00 PM AMBULATORY MEDICINE [facility] May 15, 2024 01:30 PM AMBULATORY MEDICINE [facility] Active, Pending, and Scheduled Orders This section includes a listing of several types of active, pending, and scheduled orders, including clinic medications orders, diagnostic test orders, procedure orders and consult orders; where the start date of the order is 45 days before the date of the Encounter or 45 days after the date of theEncounter. The data comes from all [facility]. Test Date/Time Test Type Test Details Facility Name Dec 21, 2023 12:00 AM Laboratory - Chemistry Order BASIC METABOLIC PANEL (non-fasting) BLOOD (SST-SERUM) [facility] Jan 15, 2024 01:29 PM Consult Order PODIATRY/NHM OUTPT Cons Dip Brazier's Choice [facility] Jan 19, 2024 12:00 AM Laboratory - Chemistry Order URINALYSIS CLEAN CATCH URINE [facility] Jan 19, 2024 12:00 AM Laboratory - Microbiology Order URINE CULTURE(MWROX) URINE CLEAN CATCH [facility] Social History: Smoking Status (Most current) [...] 14, 2022 12:15 PM VA-TOBACCO NEVER USED [facility] Tobacco Use History This section includes a history of the smoking, or tobacco-related health factors, that were collected on or before the date of the Encounter. The data comes from the [place] facility where the Encounter took place. Date/Time Smoking Status/Tobacco Use Comment F acility Jan 10, 2019 10:51 AM VA-TOBACCO NEVER USED [facility] Advance Directives: All historical and [...] Encounter Note(s) Provider Source Dec 08, 2023 12:00 AM NONVA NOTE: LOCAL TITLE: NON-VA HOSPITALIZATIONS/ER STANDARD TITLE: NONVA NOTE DATE OF NOTE: DEC 08, 2023 ENTRY DATE: JAN 11, 2024@08:09:10 AUTHOR: NOEL BEARDEN EXP COSIGNER: URGENCY: STATUS: COMPLETED VistA Imaging - Scanned Document SCANNED DOCUMENT SIGNATURE NOT REQUIRED Electronically Filed: 01/11/2024 by: NOEL BEARDEN APPRAISAL COORDINATOR NOEL BEARDEN [facility]
--- OUTSIDE RECORDS SUMMARY | 2024-03-07 06:46 | XMS_ITS ---
Author Name [place] Address [address] [place] [address] Care Team Providers Care Strategy Consultant Name Role Phone RAMONA HUNTER Primary [...] Member ID Insurance Provider's Telephone Number Policy Soalno's Name Patient's Relationship to Policy [place] MEDICARE (WNR) MEDICARE (M) PART B Feb 27, 2017 PART B [id number] [phone] ARONGUS,GUSTAVO NRY PATIENT MEDICARE (WNR) MEDICARE (M) PART B Feb 27, 2017 PART B [id number] [phone] ARONGUS,GUSTAVO NRY PATIENT MEDICARE (WNR) MEDICARE (M) PART A Feb 27, 2001 PART A [id number] [phone] WILGUS,GUSTAVO NRY PATIENT MEDICARE (WNR) MEDICARE (M) PART A Feb 27, 2001 PART A [id number] [phone] WILGUS,HE NRY PATIENT Selected Encounter This section includes the information on record at [place] for the Encounter. Date/Time Encounter Type Encounter Description Reason Pro vider Source Sep 15, 2023 12:00 AM Outpatient Encounter COMMUNITY CARE CONSULT IHE Encounter Template Text not used by [place] Plan of Treatment: Future Appointments (+ 6 months) and Future Tests (+/- 45 days) The Plan of Treatment section includes future care activities for the patient from all [place] treatmentfacilities. This section includes future appointments and future orders which are active, pending or scheduled. Future Appointments This section includes appointments that were scheduled to occur 6 months from the date of the Encounter, up to a maximum of 20 appointments. The data comes from all [place] treatment facilities. Appointment Date/Time Appointment Type Appointme nt Facility Name Oct 04, 2023 02:00 PM AMBULATORY - [place] [facility] [place] [facility] Oct 04, 2023 03:00 PM AMBULATORY - MEDICINE [facility] [place] [facility] Oct 04, 2023 03:30 PM AMBULATORY - MEDICINE [facility] [place] [facility] Oct 04, 2023 04:15 PM AMBULATORY - MEDICINE [facility] [place] [facility] Nov 28, 2023 08:00 AM AMBULATORY - MEDICINE [facility] [place] [facility] Dec 08, 2023 08:00 AM AMBULATORY - MEDICINE [facility] Dec 08, 2023 03:00 PM AMBULATORY - REHAB MEDICIN [facility] [place] [facility] [place] [facility] Jan 11, 2024 11:25 AM [facility] Social History: Smoking Status (Most current) and Tobacco Use (All prior to encounter date) This section includes the most current, and the historical, smoking and tobacco- related health factors from the [place] facility where the Encounter took place. Current Smoking Status This section includes the most current smoking, or tobacco-related health factor, from the [place] facility where the Encounter took place. Date/Time Current Smoking Status Phill varner Dec 14, 2022 12:15 PM VA-TOBACCO [facility] Tobacco Use History This section includes a history of the smoking, or tobacco-related health factors, that were collected on or before the date of the Encounter. The data comes from the [place] facility where the Encounter took place. Date/Time Smoking Status/Tobacco Use Comment F acility Jan 10, 2019 10:51 AM NH-TOBACCO NEVER USED [facility] Advance Directives: All historical and current Section Date Range: From patient's date of to the date document was created. This section includes ALL of a patient's completed or amended [place] Advance and Rescinded Directives. The entries below indicate that a directive exists for the patient, but an actual copy is not included with this document. The data comes from all [place] facilities. Date Advance Directives Provider Source Aug 14, 2020 ADVANCE DIRECTIVE CRISTOPHER BENITEZ Encounter Notes: All associated encounter notes This section contains the clinical notes associated to the Encounter. Date/Time Encounter Note(s) Provider Source Sep 15, 2023 12:00 AM NONVA CONSULT: LOCAL TITLE: COMMUNITY CARE-CONSULT RESULT NOTE STANDARD TITLE: NONVA CONSULT DATE OF NOTE: SEP 15, 2023 ENTRY DATE: JAN 11, 2024@10:55:31 AUTHOR: EVY RAMIREZ COSIGNER: URGENCY: STATUS: COMPLETED VistA Imaging - Scanned Document SCANNED DOCUMENT SIGNATURE NOT REQUIRED Electronically Filed: 01/11/2024 by: HENNY RAMIREZ Furnace Brazer HENNY RAMIREZ [facility]
--- OUTSIDE RECORDS SUMMARY | 2024-03-07 06:46 | XMS_ITS | Encounter Summary ---
Author Name [facility] Organization [facility] [place] Address [address] [place] [id number] Care Team Providers Care Importer Exporter Name Role Phone RAMONA HUNTER Primary Care [...] PART B Feb 27, 2017 PART B [id number] ARONGUS,GUSTAVO NRY PATIENT MEDICARE (WNR) MEDICARE (M) PART B Feb 27, 2017 PART B [id number] WILGUS,GUSTAVO NRY PATIENT MEDICARE (WNR) MEDICARE (M) PART A Feb 27, 2001 PART A [id number] WILGUS,HE NRY PATIENT MEDICARE (WNR) MEDICARE (M) PART A Feb 27, 2001 PART A [id number] WILGUS,HE NRY PATIENT Selected Encounter This section includes the information on record at [place] for the Encounter. 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 Date/Time Primary/Secondary Diagnosis Diagnosis Name Provider Source Dec 21, 2023 12:26 PM PRIMARY Problem related to unspecified psychosocial circumstances LADI,Yeni DYANA [facility] Plan of Treatment: Future Appointments (+ 6 months) and Future Tests (+/- 45 days) The Plan of Treatment section includes future care activities for the patient from all [place] [facility]. This section includes future appointments and future orders which are active, pending or scheduled. Future Appointments This section includes appointments that were scheduled to occur 6 months from the date of the Encounter, up to a maximum of 20 appointments. The data comes from all [facility]. Appointment Date/Time Appointment Type Appointme nt Facility Name Jan 11, 2024 11:25 AM AMBULATORY - MEDICINE [facility] Apr 24, 2024 03:00 PM AMBULATORY - MEDICINE [facility] May 15, 2024 01:30 PM AMBULATORY MEDICINE [facility] Active, Pending, and Scheduled Orders This section includes a listing of several types of active, pending, and scheduled orders, including clinic medications orders, diagnostic test orders, procedure orders and consult orders; where the start date of the order is 45 days before the date of the Encounter or 45 days after the date of theEncounter. The data comes from all [facility]. Test Date/Time Test Type Test Details Facility Name Dec 21, 2023 12:00 AM Laboratory - Chemistry Order BASIC METABOLIC PANEL (non-fasting) BLOOD (S[facility]UM) [facility] Jan 15, 2024 01:29 PM Consult Order PODIATRY/NHM OUTPT Cons Engine Repairer Production's Choice [facility] Jan 19, 2024 12:00 AM Laboratory - Chemistry Order URINALYSIS CLEAN CATCH URINE [facility] [place] [facility] Jan 19, 2024 12:00 AM Laboratory - Microbiology Order URINE CULTURE(MWROX) URINE CLEAN CATCH SP [facility] Lab Results: +/- 30 days [...] Range Comment Jan 12, 2024 12:30 PM [facility] T3, FREE (QU) Specimen Type: SERUM Comment: Test Performed by [place], [employer] [facility], [address] [place] [address] Yobani Bill M.D., Ph.D., Director of Laboratories , [facility] [id number] TEST PERFORMED AT: , Ordering Provider: Alex HUNETR Report Released Date/Time: Jan 16, 2024 08:59 AM Reporting Lab: [facility] [address] [facility] [address] Performing Lab: [facility] [address] [address] T3, FREE (QU) 2.8 pg/mL 2.3-4.2 Jan 12, 2024 12:30 PM [facility] THYROID T4 FREE(FT4) (WROX) Specimen Type: SERUM No comment entered. Ordering Provider: Alex HUNTER Report Released Date/Time: Jan 16, 2024 08:59 AM Reporting Lab: [facility] [address] [facility] [address] Performing Lab: [facility] [address] [facility] [address] THYROID T4 FREE(FT4) (WROX) 1.01 ng/dL 0.6-1.6 Jan 12, 2024 12:30 PM [facility] VITAMIN B12 Specimen Type: SERUM No comment entered. Ordering Provider: Alex HUNTER Report Released Date/Time: Dec 21, 2023 12:51 PM Reporting Lab: [facility] [address] [facility] [address] Performing Lab: [facility] [address] [facility] [address] VITAMIN B12 721 pg/mL 200-900 Jan 12, 2024 12:30 PM [facility] FOLATE (WROX) Specimen Type: SERUM No comment entered. Ordering Provider: Alex HUNTER Report Released Date/Time: Dec 21, 2023 12:51 PM Reporting Lab: [facility]ITAL[facility]N [facility] [address] [facility] [address] Performing Lab: [facility]ITAL[facility]N [facility] [address] [facility] [address] FOLATE (WROX) 16.68 ng/mL >5.2 Jan 12, 2024 12:30 PM [facility] TSH Specimen Type: SERUM No comment entered. Ordering Provider: Alex HUNTER Report Released Date/Time: Dec 21, 2023 12:51 PM Reporting Lab: [facility]N [facility]ITAL[facility] [address] [facility] [address] Performing Lab: [facility]ITAL[facility]N [facility]ITALUS[facility] [address] [facility] [address] TSH 5.88 u[IU]/mL H 0.35-5.00 Jan 12, 2024 12:30 PM [facility] MAGNESIUM Specimen Type: SERUM No comment entered. Ordering Provider: Alex HUNTER Report Released Date/Time: Dec 21, 2023 12:51 PM Reporting Lab: [facility] [address] [facility] [address] Performing Lab: [facility]ITALRV[facility]ER[facility]HAMN [facility]ITALUSETS [address] [address] MAGNESIUM 2.1 mg/dL 1.6-2.6 Jan 12, 2024 12:30 PM [facility] LIVER FUNCTION Specimen Type: SERUM No comment entered. Ordering Provider: Alex HUNTER Report Released Date/Time: Dec 21, 2023 12:51 PM Reporting Lab: [address] [address] Performing Lab: [address] [address] PROTEIN,TOTAL 6.1 g/dL 6.0-8.3 ALBUMIN 3.2 g/dL L 3.5-5.0 ALKALINE PHOSPHATASE 59 U/L 40-150 AST 13 U/L 5-34 ALT 15 U/L BILIRUBIN, TOTAL 0.4 mg/dL 0.2-1.2 Jan 12, 2024 12:30 PM [facility] CBC AND DIFF (AUTO) Specimen Type: BLOOD No comment entered. Ordering Provider: Alex HUNTER Report Released Date/Time: Dec 21, 2023 12:51 PM Reporting Lab: [address] [address] Performing Lab: [address] [address] WBC 4.45 10*3/uL L 4.50-11.00 RBC 4.96 [...] 14, 2022 12:15 PM VA-TOBACCO NEVER USED [facility] Tobacco Use History This section includes a history of the smoking, or tobacco-related health factors, that were collected on or before the date of the Encounter. The data comes from the [place] facility where the Encounter took place. Date/Time Smoking Status/Tobacco Use Comment Dane rogelio Jan 10, 2019 10:51 AM VA-TOBACCO NEVER USED [facility] Advance Directives: All historical [...] Encounter. Date/Time Encounter Note(s) Provider Source Dec 21, 2023 09:15 AM [facility] E & M NOTE: LOCAL TITLE: [facility] SOCIAL WORK NOTE STANDARD TITLE: [facility] E & M NOTE DATE OF NOTE: DEC 21, 2023@09:15 ENTRY DATE: DEC 21, 2023@12:17:43 AUTHOR: FABI BLEDSOE EXP COSIGNER: URGENCY: STATUS: COMPLETED 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 02/11/2018 RASHEED GUTIERREZ Primary hypertension I11.9 09/30/2022 RAMONA HUNTER Disorder of meniscus of knee R69. 02/04/2015 MARINO DURANT Benign prostatic hypertrophy with o 02/04/2015 MARINO DURANT Erectile dysfunction R69. 02/04/2015 MARINO DURANT SS - Spinal stenosis M48.00 09/04/2018 ZENAFRANK TAYLOR Cat. - Cataract R69. 02/04/2015 MARINO DURANT HL - Hearing loss H91.93 02/04/2015 MARINO DURANT Length of Visit: 45 minutes Visit conducted with caregiver to assist [facility] [place] [place]'s name is nearing the top of the list. Answered questions, assisted with paperwork, and fitness management director was called during the visit for clarification on a few things. Significant other feels it's time for him to go into LTC. It's a difficult decision for her. His condition has declined, and her mother is now needing more assistance from her as well. Support and validation provided. Lakshmi is asking if Covid booster can be provided in the near future so proof may be sent with his medical records to the [facility]. She is also asking if PCP can assist in completing another [employer] form since [place] edited the first. Plan of Care: --Provide Order for LTC to PCP for signature and send required medical records to [facility]. --Psychosocial support to be provided as needed. --Annual assessment to be conducted April 2024 unless otherwise indicated. /lalo/ FABI BLEDSOE HEAVY LINE TECHNICIAN [facility] Office Messenger Helper Signed: 12/21/2023 12:26 Receipt Acknowledged By: 12/25/2023 08:40 /lalo/ JODI SUTTON RN [facility] rug dry room attendant 12/21/2023 13:41 /lalo/ RAMONA HUNTER RN,MSN,SECTION WEAVER-C [facility] NURSE PRACTITIONER 12/26/2023 ADDENDUM STATUS: COMPLETED Requested documents faxed to [facility] of [place] and informed partner Lakshmi. She will submit her paperwork by the end of the week. /lalo/ FABI BLEDSOE HEAVY LINE TECHNICIAN [facility] Office Messenger Helper Signed: 12/26/2023 12:14 FABI BLEDSOE [place] CNTRL [facility]
--- OUTSIDE RECORDS SUMMARY | 2024-03-07 06:46 | XMS_ITS ---
Author Name [facility] [facility] [place] [address] [place] [address] Care Team Providers Care Level Vial Inspector And Tester Name Role Phone SARAY GARCIA Primary Care [...] PART B Feb 27, 2017 PART B [id number] REJI,GUSTAVO NRY PATIENT MEDICARE (WNR) MEDICARE (M) PART B Feb 27, 2017 PART B [id number] REJI,GUSTAVO NRY PATIENT MEDICARE (WNR) MEDICARE (M) PART A Feb 27, 2001 PART A [id number] WILGUS,HE NRY PATIENT MEDICARE (WNR) MEDICARE (M) PART A Feb 27, 2001 PART A [id number] GUSTAVO MENDOZA PATIENT Selected Encounter This section includes the information on record at [place] for the Encounter. Date/Time Encounter Type Encounter Description Reason Pro vider Source Dec 26, 2023 09:32 AM Outpatient Encounter [facility] PHYSIC EXTND(WOODWORKING BENCH CARPENTER,LEGAL ENTITY CONTROLLER,PA) I[facility] Encounter Template Text not used by [place] Plan of Treatment: Future Appointments (+ 6 months) and Future Tests (+/- 45 days) The Plan of Treatment section includes future care activities for the patient from all [place] [facility]. This section includes future appointments and future orders which are active, pending or scheduled. Future Appointments This section includes appointments that were scheduled to occur 6 months from the date of the Encounter, up to a maximum of 20 appointments. The data comes from all [facility] facilities. Appointment Date/Time Appointment Type Appointme nt Facility Name Jan 11, 2024 11:25 AM AMBULATORY - MEDICINE [facility] Apr 24, 2024 03:00 PM AMBULATORY - MEDICINE [facility] May 15, 2024 01:30 PM AMBULATORY - MEDICINE [facility] Active, Pending, and Scheduled Orders This section includes a listing of several types of active, pending, and scheduled orders, including clinic medications orders, diagnostic test orders, procedure orders and consult orders; where the start date of the order is 45 days before the date of the Encounter or 45 days after the date of theEncounter. The data comes from all [facility]. Test Date/Time Test Type Test Details Facility Name Dec 21, 2023 12:00 AM Laboratory - Chemistry Order BASIC METABOLIC PANEL (non-fasting) BLOOD (SST-SERUM) SP [facility] Jan 15, 2024 01:29 PM Consult Order PODIATRY/NHM OUTPT Cons Way Inspector's Choice [facility] Jan 19, 2024 12:00 AM Laboratory - Chemistry Order URINALYSIS CLEAN CATCH URINE SP [facility] Jan 19, 2024 12:00 AM Laboratory - Microbiology Order URINE CULTURE(MWROX) URINE CLEAN CATCH SP [facility] Lab Results: +/- 30 days [...] Range Comment Jan 12, 2024 12:30 PM [facility] T3, FREE (QU) Specimen Type: SERUM Comment: Test Performed by [employer] [place], [employer] [facility], [address] [place] [address] Yobani Bill M.D., Ph.D., Director of Laboratories , CLIA [id number] TEST PERFORMED AT: , Ordering Provider: Alex GARCIA Report Released Date/Time: Jan 16, 2024 08:59 AM Reporting Lab: [address] [address] Performing Lab: [facility] [address] [address] T3, FREE (QU) 2.8 pg/mL 2.3-4.2 Jan 12, 2024 12:30 PM [facility] THYROID T4 FREE(FT4) (WROX) Specimen Type: SERUM No comment entered. Ordering Provider: Alex GARCIA Report Released Date/Time: Jan 16, 2024 08:59 AM Reporting Lab: [facility] [address] [facility] [address] Performing Lab: [facility] [address] [facility] [address] THYROID T4 FREE(FT4) (WROX) 1.01 ng/dL 0.6-1.6 Jan 12, 2024 12:30 PM [facility] TSH Specimen Type: SERUM No comment entered. Ordering Provider: Alex GARCIA Report Released Date/Time: Dec 21, 2023 12:51 PM Reporting Lab: [facility] [address] [facility] [address] Performing Lab: [place] [facility] [facility] [address] [facility] [address] TSH 5.88 u[IU]/mL H 0.35-5.00 Jan 12, 2024 12:30 PM [facility] VITAMIN B12 Specimen Type: SERUM No comment entered. Ordering Provider: Alex GARCIA Report Released Date/Time: Dec 21, 2023 12:51 PM Reporting Lab: [facility] [place] [facility] [address] [facility] [address] Performing Lab: [facility] [address] [facility] [address] VITAMIN B12 721 pg/mL 200-900 Jan 12, 2024 12:30 PM [facility] FOLATE (WROX) Specimen Type: SERUM No comment entered. Ordering Provider: Alex GARCIA Report Released Date/Time: Dec 21, 2023 12:51 PM Reporting Lab: [facility] [place] [facility] [address] [facility] [address] Performing Lab: [facility] [address] [facility] [address] FOLATE (WROX) 16.68 ng/mL >5.2 Jan 12, 2024 12:30 PM [facility] MAGNESIUM Specimen Type: SERUM No comment entered. Ordering Provider: Alex GARCIA Report Released Date/Time: Dec 21, 2023 12:51 PM Reporting Lab: [facility] [place] [facility] [address] [facility] [phone] Performing Lab: [facility] [address] [facility] [address] MAGNESIUM 2.1 mg/dL 1.6-2.6 Jan 12, 2024 12:30 PM [facility] LIVER FUNCTION Specimen Type: SERUM No comment entered. Ordering Provider: Alex GARCIA Report Released Date/Time: Dec 21, 2023 12:51 PM Reporting Lab: [facility] [place] [facility] [address] [facility] [address] Performing Lab: [facility] [address] [facility] [address] PROTEIN,TOTAL 6.1 g/dL 6.0-8.3 ALBUMIN 3.2 g/dL L 3.5-5.0 ALKALINE PHOSPHATASE 59 U/L 40-150 AST 13 U/L 5-34 ALT 15 U/L BILIRUBIN, TOTAL 0.4 mg/dL 0.2-1.2 Jan 12, 2024 12:30 PM [facility] CBC AND DIFF (AUTO) Specimen Type: BLOOD No comment entered. Ordering Provider: Alex GARCIA Report Released Date/Time: Dec 21, 2023 12:51 PM Reporting Lab: [facility] [address] [facility] [address] Performing Lab: [address] [address] WBC 4.45 10*3/uL L 4.50-11.00 RBC 4.96 [...] 14, 2022 12:15 PM VA-TOBACCO NEVER USED [place] [employer] [facility] TheySayOKLAHOMA STATE UNIVERSITY MEDICAL CENTER – TULSASunpreme [facility] Tobacco Use History This section includes a history of the smoking, or tobacco-related health factors, that were collected on or before the date of the Encounter. The data comes from the [place] facility where the Encounter took place. Date/Time Smoking Status/Tobacco Use Comment F acility Jan 10, 2019 10:51 AM VA-TOBACCO NEVER USED [place] [employer] [facility] [employer] [facility] Advance Directives: All historical and [...] Encounter. Date/Time Encounter Note(s) Provider Source Dec 26, 2023 09:33 AM [facility] NOTE: LOCAL TITLE: [facility] INTERDISCIPLINARY NOTE STANDARD TITLE: [facility] NOTE DATE OF NOTE: DEC 26, 2023@09:33 ENTRY DATE: DEC 26, 2023@09:33:11 AUTHOR: RAÚL SUTTON EXP COSIGNER: URGENCY: STATUS: COMPLETED [facility] INTERDISCIPLINARY NOTE Has ADDENDA INTERDISCIPLINARY NOTE Allergies: LATEX GLOVE, AMIODARONE Risk Assessment Level 1 Low risk DNR: No Advanced Directive Completed: Yes Family/Community Support: Girlfrienyeimi Martins Mental Status: Dx of Dementia PLAN OF CARE 90 day review Dates covered by plan of care from Nov to Feb Primary Care Provider: Saray Garcia NP PROBLEM [...] TWICE DAILY FOR EAR WAX BLOCKAGE 4) CLEANSING CLOTH ATTENDS PKT USE ONE WASHCLOTH ACTIVE DIRECTED ONCE DAILY NEEDED 5) DOCUSATE NA 100MG CAP TAKE ONE CAPSULE BY MOUTH TWICE ACTIVE DAILY NEEDED FOR CONSTIPATION TO SOFTEN STOOL 6) GLOVE NITRILE MED PFREE NSTERILE TX USE GLOVE(S) ONCE ACTIVE DAILY NEEDED 7) INCONT LINER DEPEND GUARDS USE 1 PAD TOPICALLY TWICE ACTIVE DAILY NEEDED 8) MICONAZOLE NITRATE 2% TOP PWDR APPLY SMALL AMOUNT ACTIVE TOPICALLY TWICE DAILY NEEDED FOR FUNGAL INFECTION OF SKIN 9) MULTIVITAMIN/MINERALS CHEW TAB CHEW 1 TABLET BY MOUTH ACTIVE ONCE DAILY FOR VITAMIN SUPPLEMENTATION 10) NUTRITION SUPL ENSURE PLUS/SHIVA LIQUID DRINK 1 CAN BY ACTIVE MOUTH ONCE DAILY FOR NUTRITIONAL SUPPLEMENTATION 11) NYSTATIN 474422 UNT/GM CREAM APPLY A THIN LAYER ACTIVE TOPICALLY TWICE DAILY 12) PANTOPRAZOLE NA 40MG EC TAB TAKE ONE TABLET BY MOUTH ACTIVE TWICE DAILY FOR EXCESSIVE PRODUCTION OF STOMACH ACID 13) UNDERPAD,BED 30IN X 36IN PLASTIC BACK USE 1 PAD ACTIVE TOPICALLY ONCE DAILY NEEDED FOR PERSONAL CARE 14) ZINC OXIDE 20% OINT APPLY THIN LAYER TOPICALLY ONCE ACTIVE DAILY NEEDED FOR SKIN IRRITATION Gender Specific Health Assessment: BPH and Erectile dysfunction Fall Risk: [facility] 10 Fall Risk Assessment Tool Required [...] considered at risk for falling. Created by: [facility] Functional Limitations Use of assistive devices walker hearing loss bowel/bladder incontinence Nutritional Requirements: Diet: dado operator VISIT FREQUENCY RN 1 to 4 every [...] oriented x1, forgetful with diagnosis of Alzheimer's. [place] HCP is his girlfriend Lakshmi and she also takes care of her elderly mother. 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 Dark blanchable area to coccyx which was previously treated with fungal cream, fungus cleared but has that pressure area as he spends most of his day sitting in a recliner. Education provided on turning and repositioning and encouragement for better to get up often. Caregiver voiced understanding but does report ramses is stubborn and refuses alot of the time. Recent ER visit, Ramses was taken to [facility] from audiology appointment in [facility] as he had an episode of loss of consciousness while having hearing aids fitted. Per discharge paperwork ramses had this episode related to stimulation of vagus nerve. Ramses was back to baseline after a few hours at the hospital and was sent home the same day. Med changes this IDT Digoxin discontinued per caregiver after an EKG done at cardiology office the last week of October. Visit summary requested but no note on this encounter received. Upcoming appointment with Cardiology on 01/04 to have heart monitor placed for two weeks. Vet received Flu vaccine this IDT and Tdap immunization [facility] [place] Per note dated 12/20 [place]'s name is nearing the top of the list. Significant other feels it's time for him to go into LTC. It's a difficult decision for her. His condition has declined, and her mother is now needing more assistance from her as well. with complicated needs and new diagnosis which required interdisciplinary team services. /es/ JODI SUTTON, RN [facility] plant custodian Signed: 12/26/2023 10:24 Receipt Acknowledged By: 12/26/2023 11:03 /es/ KEAGAN MARINELLI RN, BSN [facility] PRODUCTION OPERATOR 12/26/2023 11:20 /es/ Nelli Cordero, MSN, WOODWORKING BENCH CARPENTER [facility] Analytics Intern 12/26/2023 10:47 /es/ FRANK PIZANO [facility] Clinical Pharmacist Practitioner 12/26/2023 10:29 /es/ Marly AGUIRRE [facility] plant custodian 12/26/2023 10:58 /es/ SARAY GARCIA RN,MSN,BINDERY MACHINE OPERATOR-C [facility] NURSE PRACTITIONER 12/27/2023 09:34 /es/ LEBRON CATES RD, LDN REGISTERED DIETITIAN 12/26/2023 10:51 /es/ Char Cates RN [facility] plant custodian 01/02/2024 09:47 /es/ FABI BLEDSOE [facility] Practice Or Student Teacher 12/26/2023 12:21 /es/ Lacie Orlando [facility] Occupational Therapist 01/01/2024 09:20 /es/ DON DIAZ STAFF DIETITIAN 12/27/2023 17:22 /es/ Marly AGUIRRE [facility] plant custodian for ANGELLA MONIQUE 12/29/2023 09:20 /es/ MICHEL Romero MD 12/26/2023 ADDENDUM STATUS: COMPLETED Will continue to review medication regimen quarterly. /es/ FRANK PIZANO [facility] Clinical Pharmacist Practitioner Signed: 12/26/2023 10:48 12/26/2023 ADDENDUM STATUS: COMPLETED Will continue to follow every 6-12 months for routine medical care and as needed for changes in condition. /es/ SARAY GARCIA RN,MSN,BINDERY MACHINE OPERATOR-C [facility] NURSE PRACTITIONER Signed: 12/26/2023 10:58 12/26/2023 ADDENDUM STATUS: COMPLETED No [facility] rehab needs identified at this time; will follow up with [place] annually and as need arises for change in function. /es/ Lacie Orlando [facility] Occupational Therapist Signed: 12/26/2023 12:35 12/27/2023 ADDENDUM STATUS: COMPLETED [place] discussed at IDT meeting. Patient was last seen in person by [facility] dietitian on 06/30/23. Plan: 1. Follow-up visit: annually or sooner [...] LEBRON CATES RD, LDN REGISTERED DIETITIAN Signed: 12/27/2023 09:35 01/02/2024 ADDENDUM STATUS: COMPLETED Practice Or Student Teacher has been assisting with admission paperwork for prison care at the [facility] in [place]. He will most likely be offered a bed, which they will accept, soon. Psychosocial support to be provided as needed. Annual assessment to be conducted April 2024 unless otherwise indicated. /es/ ESTEPHANIE DANIELLE [facility] Practice Or Student Teacher Signed: 01/02/2024 09:49 ALBERTO SUTTON [place] [facility]L [facility]
--- OUTSIDE RECORDS SUMMARY | 2024-03-07 06:46 | XMS_ITS | Encounter Summary ---
Author Name [facility] [place] Address [address] [place] [address] Care Team Providers Care President & [employer] Name Role Phone RAOMNA HUNTER Primary Care Provider Unav ailable LADI, [...] PART B Feb 27, 2017 PART B [id number] REJI,GUSTAVO NRY PATIENT MEDICARE (WNR) MEDICARE (M) PART B Feb 27, 2017 PART B [id number] REJI,GUSTAVO NRY PATIENT MEDICARE (WNR) MEDICARE (M) PART A Feb 27, 2001 PART A [id number] WILGUS,HE NRY PATIENT MEDICARE (WNR) MEDICARE (M) PART A Feb 27, 2001 PART A [id number] GUSTAVO CLINE PATIENT Selected Encounter This section includes the information on record at [place] for the Encounter. 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 Date/Time Primary/Secondary Diagnosis Diagnosis Name Provider Source Dec 21, 2023 10:30 AM PRIMARY Other chcf (current) drug therapy FRANK PIZANO [facility] Plan of Treatment: Future Appointments (+ 6 months) and Future Tests (+/- 45 days) The Plan of Treatment section includes future care activities for the patient from all [place] treatmentfacilities. This section includes future appointments and future orders which are active, pending or scheduled. Future Appointments This section includes appointments that were scheduled to occur 6 months from the date of the Encounter, up to a maximum of 20 appointments. The data comes from all [facility] [address] Appointment Date/Time Appointment Type Appointme nt Facility Name Jan 11, 2024 11:25 AM AMBULATORY - MEDICINE [facility] Apr 24, 2024 03:00 PM AMBULATORY - MEDICINE [facility] May 15, 2024 01:30 PM AMBULATORY - MEDICINE [facility] Active, Pending, and Scheduled Orders This [...] BASIC METABOLIC PANEL (non-fasting) BLOOD (SST-SERUM) SP [facility] Jan 15, 2024 01:29 PM Consult Order PODIATRY/[facility] OUTPT Cons Supervisor Type Photography's Choice [facility] Jan 19, 2024 12:00 AM Laboratory - Chemistry Order URINALYSIS CLEAN CATCH URINE [facility] Jan 19, 2024 12:00 AM Laboratory - Microbiology Order URINE CULTURE(MWROX) URINE CLEAN CATCH SP [facility] Lab Results: +/- 30 days of the encounter This section includes the Chemistry and Hematology Lab Results on record with [place] for the patient. Radiology Reports and Pathology Reports are provided separately, in subsequent sections. Lab Results This section contains the Chemistry/Hematology Results that were resulted 30 days before or 30 daysafter the date of the Encounter. Date/Time Source Result Type Result - Unit Interpretation Reference Range Comment Jan 12, 2024 12:30 PM [facility] T3, FREE (QU) Specimen Type: SERUM Comment: Test Performed by [employer] [facility], [address] [place] [address] Yobani Bill M.D., Ph.D., Director of Laboratories , [place] [id number] TEST PERFORMED AT: , Ordering Provider: Alex HUNTER Report Released Date/Time: Jan 16, 2024 08:59 AM Reporting Lab: [address] [address] Performing Lab: [facility] [address] [address] T3, FREE (QU) 2.8 pg/mL 2.3-4.2 Jan 12, 2024 12:30 PM [facility] THYROID T4 FREE(FT4) (WROX) Specimen Type: SERUM No comment entered. Ordering Provider: Alex HUNTER Report Released Date/Time: Jan 16, 2024 08:59 AM Reporting Lab: [facility] [address] [facility] [address] Performing Lab: [facility] [address] [facility] [address] THYROID T4 FREE(FT4) (WROX) 1.01 ng/dL 0.6-1.6 Jan 12, 2024 12:30 PM [facility] TSH Specimen Type: SERUM No comment entered. Ordering Provider: Alex HUNTER Report Released Date/Time: Dec 21, 2023 12:51 PM Reporting Lab: [facility] [place] [facility] [address] [facility] [address] Performing Lab: [place] [facility] [address] [facility] [address] TSH 5.88 u[IU]/mL H 0.35-5.00 Jan 12, 2024 12:30 PM [facility] VITAMIN B12 Specimen Type: SERUM No comment entered. Ordering Provider: Alex HUNTER Report Released Date/Time: Dec 21, 2023 12:51 PM Reporting Lab: [facility] [address] [address] Performing Lab: [facility] [address] [facility] [address] VITAMIN B12 721 pg/mL 200-900 Jan 12, 2024 12:30 PM [facility] FOLATE (WROX) Specimen Type: SERUM No comment entered. Ordering Provider: Alex HUNTER Report Released Date/Time: Dec 21, 2023 12:51 PM Reporting Lab: [facility] [address] [facility] [address] Performing Lab: [place] [facility] [address] [facility] [address] FOLATE (WROX) 16.68 ng/mL >5.2 Jan 12, 2024 12:30 PM [facility] MAGNESIUM Specimen Type: SERUM No comment entered. Ordering Provider: Alex HUNTER Report Released Date/Time: Dec 21, 2023 12:51 PM Reporting Lab: [facility] [address] [facility] [address] Performing Lab: [place] [facility] [address] [address] MAGNESIUM 2.1 mg/dL 1.6-2.6 Jan 12, 2024 12:30 PM [facility] LIVER FUNCTION Specimen Type: SERUM No comment entered. Ordering Provider: Alex HUNTER Report Released Date/Time: Dec 21, 2023 12:51 PM Reporting Lab: [address] [address] Performing Lab: [address] [address] PROTEIN,TOTAL 6.1 g/dL 6.0-8.3 ALBUMIN 3.2 g/dL L 3.5-5.0 ALKALINE PHOSPHATASE 59 U/L 40-150 AST 13 U/L 5-34 ALT 15 U/L BILIRUBIN, TOTAL 0.4 mg/dL 0.2-1.2 Jan 12, 2024 12:30 PM [facility] CBC AND DIFF (AUTO) Specimen Type: BLOOD No comment entered. Ordering Provider: Alex HUNTER Report Released Date/Time: Dec 21, 2023 12:51 PM Reporting Lab: [address] [address] Performing Lab: [address] [address] WBC 4.45 10*3/uL L 4.50-11.00 RBC 4.96 [...] and tobacco- related health factors from the [place] facility where the Encounter took place. Current Smoking Status This section includes the most current smoking, or tobacco-related health factor, from the [place] facility where the Encounter took place. Date/Time Current Smoking Status Comment Frederick varner Dec 14, 2022 12:15 PM VA-TOBACCO NEVER USED [facility] Tobacco Use History This section includes a history of the smoking, or tobacco-related health factors, that were collected on or before the date of the Encounter. The data comes from the [place] facility where the Encounter took place. Date/Time Smoking Status/Tobacco Use Comment F acility Jan 10, 2019 10:51 AM VA-TOBACCO NEVER USED [facility] Advance Directives: All historical and current Section Date Range: From patient's date of to the date document was created. This section includes ALL of a patient's completed or amended [place] Advance and Rescinded Directives. The entries below indicate that a directive exists for the patient, but an actual copy is not included with this document. The data comes from all [place] facilities. Date Advance Directives Provider Source Aug 14, 2020 ADVANCE DIRECTIVE CRISTOPHER BENITEZ Encounter Notes: All associated encounter notes This section contains the clinical notes associated to the Encounter. Date/Time Encounter Note(s) Provider Source Dec 21, 2023 08:20 AM [facility] MEDICATION MGT NOTE: LOCAL TITLE: [facility] PHARMACY MEDICATION REVIEW STANDARD TITLE: [facility] MEDICATION MGT NOTE DATE OF NOTE: DEC 21, 2023@08:20 ENTRY DATE: DEC 21, 2023@08:21:18 AUTHOR: FRANK PIZANO COSIGNER: URGENCY: STATUS: COMPLETED Dilia Cline is an 88 year-old WHITE MALE. PMH (per problem list/chart review): Alzheimer's dementia, hiccups, hx of anemia, a fib, white matter disease, thyroid gland disorder, shoulder pain, lipoma, actinic keratosis, HTN, disorder of meniscus of knee s/p surgery on bilateral knees, BPH, ED, spinal stenosis, cataract, hearing loss, dry eyes, exposure to potentially hazardous chemical, hx of COVID-19 infection Alcohol (-) Tobacco (-) Allergies/ADR: LATEX GLOVE (rash), AMIODARONE (dizziness) ========= Active Outpatient Medications Status ========= 1) APIXABAN 2.5MG TAB TAKE ONE TABLET BY MOUTH EVERY 12 ACTIVE HOURS FOR PREVENTION OF BLOOD CLOTS * takes 7am and 7pm 2) BRIEF,PROTECTIVE [...] DAILY NEEDED FOR CONSTIPATION TO SOFTEN STOOL * previously non-VA 7) GLOVE NITRILE MED PFREE NSTERILE TX USE GLOVE(S) ONCE ACTIVE DAILY NEEDED 8) INCONT LINER DEPEND GUARDS USE 1 PAD TOPICALLY TWICE ACTIVE DAILY NEEDED * NEW 9) MICONAZOLE NITRATE 2% TOP PWDR APPLY SMALL AMOUNT ACTIVE TOPICALLY TWICE DAILY NEEDED FOR FUNGAL INFECTION OF SKIN * NEW 10) MULTIVITAMIN/MINERALS CHEW TAB CHEW 1 TABLET BY MOUTH ACTIVE ONCE DAILY FOR VITAMIN SUPPLEMENTATION 11) NUTRITION SUPL ENSURE PLUS/SHIVA LIQUID DRINK 1 CAN BY ACTIVE MOUTH ONCE DAILY FOR NUTRITIONAL SUPPLEMENTATION 12) NYSTATIN 345479 UNT/GM CREAM APPLY A THIN LAYER ACTIVE TOPICALLY TWICE DAILY * NEW 13) PANTOPRAZOLE NA 40MG EC TAB TAKE [...] 100MG BY MOUTH ONCE ACTIVE DAILY NEEDED * duplicate order, now [facility] THE ABOVE MEDICATIONS WERE REVIEWED FOR: ADR, potential incompatibilities, compliance, duplication of therapy, and indications on problem list Other Rx/OTC/Herbals: none identified High Alert Meds: apixaban Look Alike/Sound Alike Meds: none Duplication of Therapy: docusate (VA and non-VA), Ensure AND multivitamin Excessive Duration: multivitamin Vitals: ======= Ht: 72 in [182.9 cm] (08/14/2020 10:08) Wt: 184.5 lb [83.69 kg] (10/04/2023 14:53) BMI: 25.1 BP: 110/70 (12/12/2023 12:30) HR: 70 (12/12/2023 12:30) Pain: 0 (12/12/2023 12:30) Labs: ===== *labwork from [facility] SERUM Na K BUN SCr *08/27/23 138 4.1 18 1.29 *06/17/23 137 4.3 23 1.4 *06/12/23 135 4.5 19 1.5 *05/28/23 135 3.9 16 1.2 03/20/23 137 4.8 15 1.16 eGFR (CKD-EPI 2020): 54 (*08/27/23) CrCl (C&G, SCr 1.29, adj BW): ~46 mL/min EKG (*07/11/23): Sinus rhythm with 1st degree A-V block. Incomplete right bundle branch block EKG (*05/28/23): Atrial fibrillation with rapid ventricular response with premature ventricular or aberrantly conducted complexes. Left axis deviation. Right bundle branch block SERUM AST ALT *08/27/23 11 13 BLOOD WBC Hgb Hct MCV Plt *08/27/23 7.5 13.6 39.9 88.5 203 *06/12/23 5.8 12.4 L 36.9 L 87.6 [...] D: 32 ng/mL (10/07/22) Ca: 8.5 mg/dL (*08/27/23) Alb: 3.4 g/dL (*08/27/23) Corrected Ca: 9 mg/dL ASSESSMENT: Since last review: - No falls noted - Ramses presented to [facility] on 08/28/23 with symptoms of fever and AMS. Tested positive for COVID-19 infection. Was discharged home with services on 09/01/23. Was given a short-term supply of digoxin 0.125 mg to be given every other day given uncontrolled a fib while inpatient with plan to f/u with Cardiology. - Per the 09/11/23 [facility] DIRECTOR OF ACCOUNTS PAYABLE note, was ordered a short-term supply of polymixin/trimethoprim eye drops for conjunctivitis with improvement of sx. - Per the 09/13/23 [facility] DIRECTOR OF ACCOUNTS PAYABLE note, has a fungal infection to buttock. Nystatin cream ordered. - Was seen for Cards f/u on 09/15/23. Every other day digoxin was continued. - Per the 11/28/23 [facility] tele note, 's digoxin was stopped after f/u EKG with plan for reassessment after placement of heart monitor x 2 weeks. Has a Cardiology f/u scheduled for 12/22/23. Per CG, is doing better now that he is off of digoxin. - presented to [facility] ED from scheduled Audiology appt on 12/08/23 after lower BP with loss of consciousness while having hearing aids fitted. Thought to be related to stimulation of vagus nerve. INTERVENTIONS/SUGGESTIONS: 1. Patient's medications were reviewed for significant drug interactions. No significant findings, but will continue to monitor with adjustments to medication regimen. 2. Patient has reduced renal function with an estimated creatinine clearance of ~46 mL/min, therefore at risk of accumulation of renally cleared drugs. LFTs WNL. Current medications are dosed appropriately for the patient's renal and hepatic function. * apixaban: a dose of 5mg BID is recommended based on SCr of less than 1.5 and weight of greater than 60kg - last SCrs of 1.29 and 1.4 with higher SCr elevated above baseline in the setting of SIN/dehydration, could consider dose increase after repeat BMP 3. Medications reviewed to determine if regimen could contribute to falls. The only agent on 's active medication list that may increase fall risk is pantoprazole. Also, apixaban use may increase bleeding risk should a fall occur. Last documented fall occurred on 06/21/23 where was walking to the bathroom and felt like he passed out resulting in R hand skin tear. To reduce the risk for falls, educate pt re: safe postural transitions and signs/sx of orthostatic hypotension. Also, long-term use of a PPI may increase [...] not be appropriate given last SCr of 1.29 and weight ~84 kg; could consider dose increase from 2.5mg to 5mg BID if renal function and CBC remain stable with repeat labwork, although appreciate fall history; previously trialed amiodarone (dizziness), metoprolol (bradycardia), and diltiazem (bradycardia) at different times; was recently started on digoxin during hospitalization given a fib with RVR x 2 during admission but this was stopped after f/u EKG with plan for reassessment after placement of heart monitor x 2 weeks; has a Cardiology f/u scheduled for 12/22/23 * hx of anemia - last Hgb uptrending (12.4 --> 13.6); recommend close monitoring for signs/sx of bleeding while on DOAC; repeat CBC pending * Alzheimer's dementia - no cognitive agents at this time, would be cautious with considering donepezil given RBBB seen on EKG from Dec 2022 ED visit and hx of dizziness; recommend ordering vit B12 and folate levels to assess reversible causes of cognitive decline, TSH level pending * HTN - last BPs reasonably well-controlled off of antihypertensive, previously on lisinopril - stopped 04/29/22 in the setting of lower BPs and positive orthostasis on 5 mg dose, previous hx of bradycardia with trial of rate control tx for a fib * BPH - no tx, no documented hx of elevated PSA but could consider ordering a level to see if finasteride is indicated if is reporting bothersome sx * ED - not on pharmacotherapy, no recent complaints per chart review, previously used PRN sildenafil - last Rx in 2018 5. All medications have an appropriate indication and supporting clinical symptoms. * multivitamin - no clear indication, especially with concurrent Ensure use; would consider discontinuation to reduce pill burden * pantoprazole - was started while inpatient at [facility] in May 2023 for hiccups with improvement, would continue to assess the risks versus benefit given risk of long-term adverse effects of fracture, infection, and Mg/vitamin B12 deficiency; no recent Mg or vit B12 levels; plan to trial changing PPI dosing from BID to daily as tolerated * nystatin cream - ordered for suspected fungal infection, red scaly patch on intergluteal cleft; infection improved but has been using miconazole powder recently 6. Adherence Concerns: no concerns at this time per medication refill history review 7. Health Maintenance: > Immunizations: [place] is due for the following immunizations per chart review and CDC recommendations: * COVID-19 * PCV20 (shared decision making) - received PCV13 on 12/05/14 - received PPSV23 on 02/05/18 > Bladder/Bowel: * Inquire about incontinence and severity biannually. > Bone Health: * not taking Ca or vit D supplementation * last vit D and Ca levels WNL > Aspirin: * not taking low-dose aspirin, no hx of ASCVD per problem list * ramses is at increased risk of bleeding given DOAC use 8. Patient with zero refills on: nystatin cream, gloves, carboxymethylcellulose eye drops 9. Continue to review quarterly. Recommendations: - Per the 06/26/23 [facility] DIRECTOR OF ACCOUNTS PAYABLE progress note, plan was to trial change in pantoprazole dosing from 40mg BID to 40mg daily. Please clarify how ramses is currently taking. If he trialed dosing change please reassess for any change in hiccups and update [facility] Rx to reflect how ramses will be taking this agent moving forward to reconcile med list. - Per the discharge paperwork from ramses's August 2023 hospitalization (please see 09/05/23 Administrative note), ramses received the Tdap vaccine on 06/21/23. Please update his immunization record in CPRS to avoid duplication of immunization administration and to fulfill clinical reminder. - Would consider obtaining vit B12, Mg, and folate levels with next scheduled labwork given chronic PPI use and dementia diagnosis. Appreciate pending CBC and BMP. Can reassess appropriateness of current apixaban dosing when labwork results. - Please assess ramses's willingness to receive the updated COVID-19 vaccine during next scheduled visit. - Ramses was ordered nystatin cream for a fungal infection of the intergluteal cleft with documented improvement, but has been using an alternate antifungal agent recently. Please discontinue nystatin if it is no longer indicated to reconcile active med list. This speech writer to discontinue ramses's non-VA docusate to avoid duplicate orders. Ramses is now [facility]. Per hospitalization and Cards documentation, ramses was previously on amiodarone which was stopped due to ADR of dizziness. This speech writer to update his allergy/ADR list in CPRS. The details of this review were shared with the IDT in order to assist in creating a care plan designed to provide services focused on the health and well being of the patient. Time Spent: 60 min /lalo/ FRANK PIZANO [facility] Clinical Pharmacist Practitioner Signed: 12/21/2023 10:44 Receipt Acknowledged By: 12/25/2023 08:51 /es/ JODI SUTTON, RN [facility] hydro pneumatic tester 12/21/2023 12:50 /es/ RAMONA HUNTER RN,MSN,VISITING HOUSEKEEPER-C [facility] NURSE PRACTITIONER FRANK PIZANO [facility]
--- OUTSIDE RECORDS SUMMARY | 2024-03-07 06:46 | XMS_ITS | Encounter Summary ---
Author Name Department of Vetera Affairs ([place]) Organization [facility] Address [address] [place] [id number] Care Team Providers Care Physical Director Name Role Phone RAMONA HUNTER Primary Care [...] PART B Feb 27, 2017 PART B [id number] REJI,GUSTAVO NRY PATIENT MEDICARE (WNR) MEDICARE (M) PART B Feb 27, 2017 PART B [id number] REJI,GUSTAVO NRY PATIENT MEDICARE (WNR) MEDICARE (M) PART A Feb 27, 2001 PART A [id number] REJI,GUSTAVO NRY PATIENT MEDICARE (WNR) MEDICARE (M) PART A Feb 27, 2001 PART A [id number] [phone] GUSTAVO MENDOZA PATIENT Selected Encounter This section includes the information on record at [place] for the Encounter. Date/Time Encounter Type Encounter Description Reason Pro vider Source Dec 25, 2023 08:48 AM Outpatient Encounter [facility] Nursing (RN / LP) IHE Encounter [...] 11, 2024 11:25 AM AMBULATORY - MEDICINE [facility] Apr 24, 2024 03:00 PM AMBULATORY - MEDICINE [facility] May 15, 2024 01:30 PM AMBULATORY [facility]ICINE [facility] Active, Pending, and Scheduled Orders This section includes a listing of several types of active, pending, and scheduled orders, including clinic medications orders, diagnostic test orders, procedure orders and consult orders; where the start date of the order is 45 days before the date of the Encounter or 45 days after the date of theEncounter. The data comes from all [facility]. Test Date/Time Test Type Test Details Facility Name Dec 21, 2023 12:00 AM Laboratory - Chemistry Order BASIC METABOLIC PANEL (non-fasting) BLOOD (SST-SERUM) SP [facility] Jan 15, 2024 01:29 PM Consult Order PODIATRY/NHM OUTPT Cons [employer] Linux Administrator's Choice [facility] Jan 19, 2024 12:00 AM Laboratory - Microbiology Order URINE CULTURE(MWROX) URINE CLEAN CATCH SP [facility] Jan 19, 2024 12:00 AM Laboratory - Chemistry Order URINALYSIS CLEAN CATCH URINE SP [facility] Lab Results: +/- 30 days of the encounter This section includes the Chemistry and Hematology Lab Results on record with [place] for the patient. Radiology Reports and Pathology Reports are provided separately, in subsequent sections. Lab Results This section contains the Chemistry/Hematology Results that were resulted 30 days before or 30 daysafter the date of the Encounter. Date/Time Source Result Type Result - Unit Interpretation Reference Range Comment Jan 12, 2024 12:30 PM [facility] T3, FREE (QU) Specimen Type: SERUM Comment: Test Performed by [facility], [place] [facility], [address] [place] [address] Yobani Bill M.D., Ph.D., Director of Laboratories , [place] [id number] TEST PERFORMED AT: , Ordering Provider: Alex HUNTER Report Released Date/Time: Jan 16, 2024 08:59 AM Reporting Lab: [address] [address] Performing Lab: [facility] [address] [address] T3, FREE (QU) 2.8 pg/mL 2.3-4.2 Jan 12, 2024 12:30 PM [facility] THYROID T4 FREE(FT4) (WROX) Specimen Type: SERUM No comment entered. Ordering Provider: Alex HUNTER Report Released Date/Time: Jan 16, 2024 08:59 AM Reporting Lab: [facility] [address] [facility] [address] Performing Lab: [facility] [address] [facility] [address] THYROID T4 FREE(FT4) (WROX) 1.01 ng/dL 0.6-1.6 Jan 12, 2024 12:30 PM [facility] VITAMIN B12 Specimen Type: SERUM No comment entered. Ordering Provider: Alex HUNTER Report Released Date/Time: Dec 21, 2023 12:51 PM Reporting Lab: [facility] [address] [facility] [address] Performing Lab: [place] [facility] [place] [facility] [address] [facility] [address] VITAMIN B12 721 pg/mL 200-900 Jan 12, 2024 12:30 PM [facility] FOLATE (WROX) Specimen Type: SERUM No comment entered. Ordering Provider: Alex HUNTER Report Released Date/Time: Dec 21, 2023 12:51 PM Reporting Lab: [place] [facility] [place] [facility] [address] [facility] [address] Performing Lab: [place] [facility] [place] [facility] [address] [facility] [address] FOLATE (WROX) 16.68 ng/mL >5.2 Jan 12, 2024 12:30 PM [facility] TSH Specimen Type: SERUM No comment entered. Ordering Provider: Alex HUNTER Report Released Date/Time: Dec 21, 2023 12:51 PM Reporting Lab: [place] [facility] [place] [facility] [address] [facility] [address] Performing Lab: [facility]N [facility] [address] [address] TSH 5.88 u[IU]/mL H 0.35-5.00 Jan 12, 2024 12:30 PM [facility] MAGNESIUM Specimen Type: SERUM No comment entered. Ordering Provider: Alex HUNTER Report Released Date/Time: Dec 21, 2023 12:51 PM Reporting Lab: [facility] [place] [facility] [address] [facility] [address] Performing Lab: [facility] [address] [address] MAGNESIUM 2.1 mg/dL 1.6-2.6 Jan 12, 2024 12:30 PM [facility] LIVER FUNCTION Specimen Type: SERUM No comment entered. Ordering Provider: Alex HUNTER Report Released Date/Time: Dec 21, 2023 12:51 PM Reporting Lab: [facility] [address] [facility] [address] Performing Lab: [facility] [address] [facility] [address] PROTEIN,TOTAL 6.1 g/dL 6.0-8.3 ALBUMIN 3.2 g/dL L 3.5-5.0 ALKALINE PHOSPHATASE 59 U/L 40-150 AST 13 U/L 5-34 ALT 15 U/L BILIRUBIN, TOTAL 0.4 mg/dL 0.2-1.2 Jan 12, 2024 12:30 PM [facility] CBC AND DIFF (AUTO) Specimen Type: BLOOD No comment entered. Ordering Provider: Alex HUNTER Report Released Date/Time: Dec 21, 2023 12:51 PM Reporting Lab: [address] [address] Performing Lab: [address] [address] WBC 4.45 10*3/uL L 4.50-11.00 RBC 4.96 [...] 14, 2022 12:15 PM VA-TOBACCO NEVER USED [place] [email or web address] Tobacco Use History This section includes a history of the smoking, or tobacco-related health factors, that were collected on or before the date of the Encounter. The data comes from the [place] facility where the Encounter took place. Date/Time Smoking Status/Tobacco Use Comment F acility Jan 10, 2019 10:51 AM VA-TOBACCO NEVER USED [place] [email or web address] Advance Directives: All historical and current Section Date Range: From patient's date of to the date document was created. This section includes ALL of a patient's completed or amended [place] Advance and Rescinded Directives. The entries below [...] Encounter. Date/Time Encounter Note(s) Provider Source Dec 25, 2023 08:50 AM IMMUNIZATION NOTE: LOCAL TITLE: [facility] IMMUNIZATION NOTE STANDARD TITLE: IMMUNIZATION NOTE DATE OF NOTE: DEC 25, 2023@08:50:29 ENTRY DATE: DEC 25, 2023@08:50:29 AUTHOR: RAÚL SUTTON EXP COSIGNER: URGENCY: STATUS: COMPLETED Documented: TDAP Historical Date Administered: Jun 21, 2023 Information Source: FROM OTHER PROVIDER /lalo/ JODI SUTTON RN [facility] reinforcer Signed: 12/25/2023 08:51 RAÚL SUTTON [facility] [place] [facility]
--- OUTSIDE RECORDS SUMMARY | 2024-03-07 06:47 | XMS_ITS | Encounter Summary ---
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 Date/Time Encounter Type Encounter Description Reason Provider Source Feb 06, 2024 01:15 PM ADMN SARSCOV2 VACC 1 DOSE [facility] Nursing (RN / LP) ICD-10-CM G30.9 Alzheimer's disease, unspecified HERMANJODI [facility] Encounter Template Text not used by [place] Assessments - Encounter Diagnoses This section includes the primary and secondary diagnoses documented for the Encounter. Date/Time Primary/Secondary Diagnosis Diagnosis Name Provider Source Feb 09, 2024 01:39 PM PRIMARY Alzheimer's disease, unspecified [facility] Feb 09, 2024 01:39 PM SECONDARY Dem in oth dis classd elswhr,unsp sev,w/o beh/psych/mood/anx [facility]BOB[facility]GAR[facility] Feb 09, 2024 01:39 PM SECONDARY Encounter for immunization [facility] Plan of Treatment: Future Appointments (+ 6 months) and Future Tests (+/- 45 days) The Plan of Treatment section includes future care activities for the patient from all [facility]. This section includes future appointments and future orders which are active, pending or scheduled. Future Appointments This section includes appointments that were scheduled to occur 6 months from the date of the Encounter, up to a maximum of 20 appointments. The data comes from all [place] treatment [facility]. Appointment Date/Time Appointment Type Appointme nt Facility Name Apr 24, 2024 03:00 PM AMBULATORY - MEDICINE [facility] May 15, 2024 01:30 PM AMBULATORY - MEDICINE [facility] Active, Pending, and Scheduled Orders This section includes a listing of several types of active, pending, and scheduled orders, including clinic medications orders, diagnostic test orders, procedure orders and consult orders; where the start date of the order is 45 days before the date of the Encounter or 45 days after the date of theEncounter. The data comes from all [place] treatment [facility]. Test Date/Time Test Type Test Details Facility Name Jan 15, 2024 01:29 PM Consult Order PODIATRY/NHM OUTPT Cons Junior Estimator's Choice [place] [facility] [facility] Jan 19, 2024 12:00 AM Laboratory - Chemistry Order URINALYSIS CLEAN CATCH URINE SP [place] [facility] [place] [facility] Jan 19, 2024 12:00 AM Laboratory - Microbiology Order URINE CULTURE(MWROX) URINE CLEAN CATCH SP [facility] Lab Results: +/- 30 days of the [...] Range Comment Jan 12, 2024 12:30 PM [facility] T3, FREE (QU) Specimen Type: SERUM Comment: Test Performed by [facility], [employer] [facility], [address] [place] [address] Yobani Bill M.D., Ph.D., Director of Laboratories , [place] [id number] TEST PERFORMED AT: , Ordering Provider: Alex HUNTER Report Released Date/Time: Jan 16, 2024 08:59 AM Reporting Lab: [facility] [address] Performing Lab: [facility] [address] [address] T3, FREE (QU) 2.8 pg/mL 2.3-4.2 Jan 12, 2024 12:30 PM [facility] THYROID T4 FREE(FT4) (WROX) Specimen Type: SERUM No comment entered. Ordering Provider: Alex HUNTER Report Released Date/Time: Jan 16, 2024 08:59 AM Reporting Lab: [facility] [address] [facility] [address] Performing Lab: [facility] [address] [facility] [address] THYROID T4 FREE(FT4) (WROX) 1.01 ng/dL 0.6-1.6 Jan 12, 2024 12:30 PM [facility] VITAMIN B12 Specimen Type: SERUM No comment entered. Ordering Provider: Alex HUNTER Report Released Date/Time: Dec 21, 2023 12:51 PM Reporting Lab: [facility] [place] [facility] [address] [facility] [address] Performing Lab: [facility]N [facility]ITAL[facility] [address] [facility] [address] VITAMIN B12 721 pg/mL 200-900 Jan 12, 2024 12:30 PM [facility] TSH Specimen Type: SERUM No comment entered. Ordering Provider: Alex HUNTER Report Released Date/Time: Dec 21, 2023 12:51 PM Reporting Lab: [facility]ITAL[facility] [address] [facility] [address] Performing Lab: [facility]TRN [facility]ITAL[facility]ETS [address] [address] TSH 5.88 u[IU]/mL H 0.35-5.00 Jan 12, 2024 12:30 PM [facility] FOLATE (WROX) Specimen Type: SERUM No comment entered. Ordering Provider: Alex HUNTER Report Released Date/Time: Dec 21, 2023 12:51 PM Reporting Lab: [facility] [place] [facility] [address] [facility] [address] Performing Lab: [facility] TRN [facility]ITAL[facility] [address] [facility] [address] FOLATE (WROX) 16.68 ng/mL >5.2 Jan 12, 2024 12:30 PM [facility] MAGNESIUM Specimen Type: SERUM No comment entered. Ordering Provider: Alex HUNTER Report Released Date/Time: Dec 21, 2023 12:51 PM Reporting Lab: [facility] [address] Performing Lab: [address] [address] MAGNESIUM 2.1 mg/dL 1.6-2.6 Jan 12, 2024 12:30 PM [facility] LIVER FUNCTION Specimen Type: SERUM No comment entered. Ordering Provider: Alex HUNTER Report Released Date/Time: Dec 21, 2023 12:51 PM Reporting Lab: [address] [address] Performing Lab: [address] [address] PROTEIN,TOTAL 6.1 g/dL 6.0-8.3 ALBUMIN 3.2 g/dL L 3.5-5.0 ALKALINE PHOSPHATASE 59 U/L 40-150 AST 13 U/L 5-34 ALT 15 U/L BILIRUBIN, TOTAL 0.4 mg/dL 0.2-1.2 Jan 12, 2024 12:30 PM [facility] CBC AND DIFF (AUTO) Specimen Type: BLOOD No comment entered. Ordering Provider: Alex HUNTER Report Released Date/Time: Dec 21, 2023 12:51 PM Reporting Lab: [address] [address] Performing Lab: [address] [address] WBC 4.45 10*3/uL L 4.50-11.00 RBC 4.96 [...] 0.0 0.0-0.0 NRBC, ABS 0.00 10*3/uL 0.00-0.00 Vital Signs: All taken on the encounter date This section contains inpatient and outpatient Vital Signs collected on the date of the Encounter. Date/Time Temperature Pulse Blood Pressure Respiratory Rate SP02 Pain Height Weight Body Mass Index Source Feb 06, 2024 01:15 PM 98.3 84 120/80 16 98 0 [place] [facility] Immunizations: All administered on the encounter date This section contains immunizations associated to the Encounter. Immunization Series Date Issued Reaction Comments COVID-19 (MODERNA), MRNA, LN P-S, PF, 50 MCG/0.5 ML (AGES 12+ YEARS) Feb 06, 2024 Social History: Smoking Status (Most current) and [...] 14, 2022 12:15 PM VA-TOBACCO NEVER USED [place] [facility] [place] [facility] Tobacco Use History This section includes a history of the smoking, or tobacco-related health factors, that were collected on or before the date of the Encounter. The data comes from the [place] facility where the Encounter took place. Date/Time Smoking Status/Tobacco Use Comment Dane accarlos Jan 10, 2019 10:51 AM VA-TOBACCO NEVER USED [place] [facility] [place] [facility] Advance Directives: All historical and current Section [...] the Encounter. Date/Time Encounter Note(s) Provider Source Feb 06, 2024 01:15 PM [facility] NURSING NOTE: LOCAL TITLE: [facility] RN PROGRESS NOTE STANDARD TITLE: [facility] NURSING NOTE DATE OF NOTE: FEB 06, 2024@13:15 ENTRY DATE: FEB 09, 2024@13:39:40 AUTHOR: RAÚL SUTTON COSIGNER: URGENCY: STATUS: COMPLETED Nursing Progress Note Active and Recently Outpatient Medications (including Supplies): Active Outpatient Medications Status 1) APIXABAN 2.5MG TAB TAKE ONE TABLET BY MOUTH EVERY 12 HOURS ACTIVE Indication: FOR PREVENTION OF BLOOD CLOTS 2) BRIEF,PROTECTIVE SUPER ABS LG ATTENDS USE 1 BRIEF ACTIVE DIRECTED THREE TIMES DAILY NEEDED FOR PERSONAL CARE 3) CARBAMIDE PEROXIDE 6.5% OTIC SOLN INSTILL 5 DROPS INTO THE ACTIVE AFFECTED EAR(S) TWICE DAILY Indication: FOR EAR WAX BLOCKAGE 4) CARBOXYMETHYLCELLULOSE NA 0.5% OPH SOLN INSTILL 1 DROP INTO ACTIVE EACH EYE FOUR TIMES DAILY NEEDED Indication: FOR DRY EYE 5) CLEANSING CLOTH ATTENDS PKT USE ONE WASHCLOTH DIRECTED ACTIVE ONCE DAILY NEEDED 6) DOCUSATE NA 100MG CAP TAKE ONE CAPSULE BY MOUTH EVERY HOLD MORNING AND TAKE TWO CAPSULES EVERY EVENING TO SOFTEN STOOL Indication: FOR CONSTIPATION 7) GLOVE NITRILE MED PFREE NSTERILE TX USE GLOVE(S) ONCE DAILY ACTIVE NEEDED 8) INCONT LINER DEPEND GUARDS USE 1 PAD TOPICALLY TWICE DAILY ACTIVE NEEDED 9) MICONAZOLE NITRATE 2% TOP PWDR APPLY SMALL AMOUNT TOPICALLY ACTIVE TWICE DAILY NEEDED Indication: FOR FUNGAL INFECTION OF SKIN 10) MULTIVITAMIN/MINERALS CHEW TAB CHEW 1 TABLET BY MOUTH ONCE ACTIVE DAILY Indication: FOR VITAMIN SUPPLEMENTATION 11) NUTRITION SUPL ENSURE PLUS/SHIVA LIQUID DRINK 1 CAN BY MOUTH ACTIVE (S) ONCE DAILY Indication: FOR NUTRITIONAL SUPPLEMENTATION 12) NYSTATIN 591951 UNT/GM CREAM APPLY A THIN LAYER TOPICALLY ACTIVE TWICE DAILY Indication: FOR FUNGAL INFECTION 13) PANTOPRAZOLE NA 40MG EC TAB TAKE ONE TABLET BY MOUTH ONCE HOLD DAILY Indication: FOR EXCESSIVE PRODUCTION OF STOMACH ACID 14) UNDERPAD,BED 30IN X 36IN PLASTIC BACK USE 1 PAD TOPICALLY ACTIVE ONCE DAILY NEEDED FOR PERSONAL CARE 15) ZINC OXIDE 20% OINT APPLY THIN LAYER TOPICALLY ONCE DAILY ACTIVE NEEDED Indication: FOR SKIN IRRITATION MEDICATION REVIEW Medication review completed during home [...] 30 min Problem addressed for this visit: Covid immunization NURSING SUMMARY: Visit made to home for covid immunization administration. Anderson sitting in recliner upon nurse arrival, SO Lakshmi and DERIK Gonzalez present for visit. VSS. No c/o pain. Regular bowel and bladder reported. Good appetite. [facility] Nurse will wait to confirm admission before discharging from [facility]. anxious about change and caregiver reports that seems even more attach to her now than ever before. Caregiver advised to reach out to provider regarding any needs as remains in ENTREPRENEURSHIP PROGRAM DIRECTOR panel. Meds reviewed and updated med list to caregiver. Covid immunization administered to left deltoid, tolerated well. No c/o pain. No adverse reactions. Immunization information reviewed with caregiver and print out given. No acute findings this visit. No falls, NO ER visits and NO hospitalizations Blood Pressure: 120/80 Pulse: 84 Respiration: 16 Temperature: 98.3 Pain Score: 0 EXAMINATION: Lungs: clear Edema: none HR: 84, regular Bowel/Bladder: regular bowel and bladder reported Skin: intact Home Safety FALLS NO INFECTIONS NO ER/HOSPITALIZATIONS NO Teaching/goals: See nursing summary above Patient verbalizes understanding to above and will call with any concerns or changes in condition. For emergent care call 911. Plan for next visit: No further visits schedule with [facility] // JODI SUTTON RN [facility] lamp inspector Signed: 02/09/2024 13:57 CRISTOBAL SUTTON [facility]L [facility]
--- OUTSIDE RECORDS SUMMARY | 2024-03-07 06:47 | XMS_ITS | Encounter Summary ---
Author Name [facility] [place] Address [address] [place] [id number] Care Team Providers Care Addictions Counselor Name Role Phone RAMONA HUNTER Primary Care Provider Unav ailable FABI BLEDSOE Unavailable Unavailable DON DIAZ Unavailable Unavailable CHAPUT, JOSHUA Unavailable Unavailable RAIVEL, KATIANA Unavailable Unavailable FEILEN, AYAKA Unavailable Unavailable ÁNGEL, ASUL Unavailable Unavailable FRANK PIZANO Unavailable Unavailable Insurance [...] PART B Feb 27, 2017 PART B [id number] [phone] REJI,GUSTAVO NRY PATIENT MEDICARE (WNR) MEDICARE (M) PART B Feb 27, 2017 PART B [id number] GUSTAVO MENDOZA NRY PATIENT MEDICARE (WNR) MEDICARE () PART A Feb 27, 2001 PART A [id number] [phone] REJI,GUSTAVO NRY PATIENT MEDICARE (WNR) MEDICARE (M) PART A Feb 27, 2001 PART A [id number] [phone] GUSTAVO MENDOZA PATIENT Selected Encounter This section includes the information on record at [place] for the Encounter. Date/Time Encounter Type Encounter Description Reason Provider Source Feb 14, 2024 02:58 PM HC PRO PHONE CALL 11-20 MIN TELEPHONE [facility] ICD-10-CM Z71.89 Other specified counseling DELMER BLEDSOE SA IHE Encounter Template Text not used by [place] Assessments - Encounter Diagnoses This section includes the primary and secondary diagnoses documented for the Encounter. Date/Time Primary/Secondary Diagnosis Diagnosis Name Provider Source Feb 14, 2024 02:58 PM PRIMARY Other specified counseling DELMER BLEDSOE SA [facility] Plan of Treatment: Future Appointments (+ 6 months) and Future Tests (+/- 45 days) The Plan of Treatment section includes future care activities for the patient from all [place] treatmentf[facility]idence hospital. This section includes future appointments and [...] 24, 2024 03:00 PM AMBULATORY - MEDICINE [facility] May 15, 2024 01:30 PM [facility] Active, Pending, and Scheduled Orders This section includes a listing of several types of active, pending, and scheduled orders, including clinic medications orders, diagnostic test orders, procedure orders and consult orders; where the start date of the order is 45 days before the date of the Encounter or 45 days after the date of theEncounter. The data comes from all [facility]. Test Date/Time Test Type Test Details Facility Name Jan 15, 2024 01:29 PM Consult Order PODIATRY/NHM OUTPT Cons V[facility] [place] [facility] Jan 19, 2024 12:00 AM Laboratory - Chemistry Order URINALYSIS CLEAN CATCH URINE SP [place] [facility] [place] [facility] Jan 19, 2024 12:00 AM Laboratory - Microbiology Order URINE CULTURE(MWROX) [facility] Social History: Smoking Status (Most current) and [...] Encounter. Date/Time Encounter Note(s) Provider Source Feb 14, 2024 02:58 PM [facility] NOTE: LOCAL TITLE: [facility] TELEPHONE NOTE STANDARD TITLE: [facility] NOTE DATE OF NOTE: FEB 14, 2024@14:58 ENTRY DATE: FEB 14, 2024@14:58:24 AUTHOR: FABI BLEDSOE EXP COSIGNER: URGENCY: STATUS: COMPLETED Called Lefor: PHONE NUMBER [CELLULAR] - PATIENT PHONE - [phone] Future Visits: 04/24/2024 15:00 CWM/NO/PODIATRY/NAIL 05/15/2024 13:30 CWM/NO/OTOLARYNGOLOGY Active Problem History of SARS-CoV-2 Z86.16, Onset 08/28/2023 RAMONA HUNTER Long-term current use of anticoagul 06/19/2023 JAIME CHAPPELL Atrial fibrillation I48.91, Onset 0 05/29/2023 RAMONA HUNTER Exposure to potentially hazardous c 05/25/2023 FABI BLEDSOE Lipoma D17.9 05/23/2023 RAMONA HUNTER Alzheimer's disease G30.9 12/19/2022 JIGNA RAI Hiccups R06.6 05/24/2022 GREGGESTEE LASHAWN Anemia D64.9 04/29/2022 TRACYTHOMAS White matter disease R90.82 12/19/2021 JIGNA RAI 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 02/11/2018 MATTRASHEED Primary hypertension I11.9 09/30/2022 RAMONA HUNTER Disorder of meniscus of knee R69. 02/04/2015 MARINO DURANT Benign prostatic hypertrophy with o 02/04/2015 MARINO DURANT Erectile dysfunction R69. 02/04/2015 MARINO DURANT SS - Spinal stenosis M48.00 09/04/2018 ZENAJOANNAJOSLYNFRANK Cat. - Cataract R69. 02/04/2015 MARINO DURANT HL - Hearing loss H91.93 02/04/2015 MARINO DURANT Length of Call: 15 minutes Telephone call to Carmine Martins's significant other regarding concerns she has [facility]. Caregiver reports she was told they will not keep him there against his will. She had tried to have him go last week but he refused. Admissions allowed date to be postponed until Mar 06. She is concerned because she feels there will be an adjustment period. She reports when he was in the hospital he was anxious at first but then adjusted and also did alright in rehab. She's been talking to him about [facility] but each time it's brand new to him because of his dementia. His health care proxy has been invoked. [facility] and expressed concerns. She stated they will give him time to adjust but if he persistently demands to go home they will not keep him. Contacted Lakshmi and relayed her the information obtained from call. She was relieved to know they would give him some time to adjust and would work with him. She expressed guilt over this decision and sadness. Active listening, support and validation provided. /lalo/ FABI BLEDSOE UMBRELLA TIPPER MACHINE [facility] Employee Relations Director Signed: 02/15/2024 08:10 Receipt Acknowledged By: 02/16/2024 08:57 /es/ JODI SUTTON, RN [facility] tele rn 02/15/2024 09:35 /es/ RAMONA HUNTER RN,MSN,TELLER HEAD-C [facility] NURSE PRACTITIONER 02/16/2024 11:54 /es/ MD LADI Lowery [facility]
--- OUTSIDE RECORDS SUMMARY | 2024-03-07 06:47 | XMS_ITS ---
Author Name [facility] [place] Organization [place] Address [address] [place] [id number] Care Team Providers Care Machine Maintenance Servicer Name Role Phone RAMONA HUNTER Primary Care [...] PART B Feb 27, 2017 PART B [id number] REJI,GUSTAVO NRY PATIENT MEDICARE (WNR) MEDICARE (M) PART B Feb 27, 2017 PART B [id number] ARONGUS,GUSTAVO NRY PATIENT MEDICARE (WNR) MEDICARE (M) PART A Feb 27, 2001 PART A [id number] ARONGUS,HE NRY PATIENT MEDICARE (WNR) MEDICARE (M) PART A Feb 27, 2001 PART A [id number] WILGUS,HE NRY PATIENT Selected Encounter This section includes the information on record at [place] for the Encounter. Date/Time Encounter Type Encounter Description Reason Pro vider Source Feb 10, 2024 10:11 AM Outpatient Encounter OPTOMETRY IHE Encounter Template Text not used by [place] Plan of Treatment: Future Appointments (+ 6 months) and Future Tests (+/- 45 days) The Plan of Treatment section includes future care activities for the patient from all [place] treatmentfacilities. This section includes future appointments and future orders which are active, pending or scheduled. Future Appointments This section includes appointments that were scheduled to occur 6 months from the date of the Encounter, up to a maximum of 20 appointments. The data comes from all [place] treatment facilities. Appointment Date/Time Appointment Type Appointme nt Facility Name Apr 24, 2024 03:00 PM AMBULATORY - MEDICINE [facility] May 15, 2024 01:30 PM AMBULATORY - MEDICINE [facility] Active, Pending, and Scheduled Orders This section includes a listing of several types of active, pending, and scheduled orders, including clinic medications orders, diagnostic test orders, procedure orders and consult orders; where the start date of the order is 45 days before the date of the Encounter or 45 days after the date of theEncounter. The data comes from all [place] treatment facilities. Test Date/Time Test Type Test Details Facility Name Jan 15, 2024 01:29 PM Consult Order PODIATRY/NHM OUTPT Cons Center Consultant's Choice [facility] Jan 19, 2024 12:00 AM Laboratory - Chemistry Order URINALYSIS CLEAN CATCH URINE SP [facility] Jan 19, 2024 12:00 AM Laboratory - Microbiology Order URINE CULTURE(MWROX) URINE CLEAN CATCH SP [facility] Lab Results: +/- 30 days of the encounter This section includes the Chemistry and Hematology Lab Results on record with [place] for the patient. Radiology Reports and Pathology Reports are provided separately, in subsequent sections. Lab Results This section contains the Chemistry/Hematology Results that were resulted 30 days before or 30 daysafter the date of the Encounter. Date/Time Source Result Type Result - Unit Interpretation Reference Range Comment Jan 12, 2024 12:30 PM [facility] T3, FREE (QU) Specimen Type: SERUM Comment: Test Performed by [facility], [address] [place], [place] Yobani Bill M.D., Ph.D., Director of Laboratories , ADOLFOIA [id number] TEST PERFORMED AT: , Ordering Provider: Alex HUNTER Report Released Date/Time: Jan 16, 2024 08:59 AM Reporting Lab: [facility] [place] [facility] [address] [facility] [address] Performing Lab: [facility] [address] [address] T3, FREE (QU) 2.8 pg/mL 2.3-4.2 Jan 12, 2024 12:30 PM [facility] THYROID T4 FREE(FT4) (WROX) Specimen Type: SERUM No comment entered. Ordering Provider: Alex HUNTER Report Released Date/Time: Jan 16, 2024 08:59 AM Reporting Lab: [facility] [address] [facility] [address] Performing Lab: [facility] [address] [facility] [address] THYROID T4 FREE(FT4) (WROX) 1.01 ng/dL 0.6-1.6 Jan 12, 2024 12:30 PM [facility] TSH Specimen Type: SERUM No comment entered. Ordering Provider: Alex HUNTER Report Released Date/Time: Dec 21, 2023 12:51 PM Reporting Lab: [facility] [place] [facility] [address] [facility] [address] Performing Lab: [facility] [address] [facility] [address] TSH 5.88 u[IU]/mL H 0.35-5.00 Jan 12, 2024 12:30 PM [facility] VITAMIN B12 Specimen Type: SERUM No comment entered. Ordering Provider: Alex HUNTER Report Released Date/Time: Dec 21, 2023 12:51 PM Reporting Lab: [facility] [address] [facility] [address] Performing Lab: [facility] [address] [facility] [address] VITAMIN B12 721 pg/mL 200-900 Jan 12, 2024 12:30 PM [facility] FOLATE (WROX) Specimen Type: SERUM No comment entered. Ordering Provider: Alex HUNTER Report Released Date/Time: Dec 21, 2023 12:51 PM Reporting Lab: [facility] [address] [facility] [address] Performing Lab: [facility] [address] [facility] [address] FOLATE (WROX) 16.68 ng/mL >5.2 Jan 12, 2024 12:30 PM [facility] LIVER FUNCTION Specimen Type: SERUM No comment entered. Ordering Provider: Alex HUNTER Report Released Date/Time: Dec 21, 2023 12:51 PM Reporting Lab: [address] [address] Performing Lab: [address] [address] PROTEIN,TOTAL 6.1 g/dL 6.0-8.3 ALBUMIN 3.2 g/dL L 3.5-5.0 ALKALINE PHOSPHATASE 59 U/L 40-150 AST 13 U/L 5-34 ALT 15 U/L BILIRUBIN, TOTAL 0.4 mg/dL 0.2-1.2 Jan 12, 2024 12:30 PM [facility] CBC AND DIFF (AUTO) Specimen Type: BLOOD No comment entered. Ordering Provider: Alex HUNTER Report Released Date/Time: Dec 21, 2023 12:51 PM Reporting Lab: [address] [address] Performing Lab: [facility] [address] [facility] [address] WBC 4.45 10*3/uL L 4.50-11.00 RBC 4.96 [...] 0.0 0.0-0.0 NRBC, ABS 0.00 10*3/uL 0.00-0.00 Jan 12, 2024 12:30 PM [facility] MAGNESIUM Specimen Type: SERUM No comment entered. Ordering Provider: Alex HUNTER Report Released Date/Time: Dec 21, 2023 12:51 PM Reporting Lab: [facility] [address] [facility] [address] Performing Lab: [address] [address] MAGNESIUM 2.1 mg/dL 1.6-2.6 Social History: Smoking Status (Most current) and Tobacco Use (All prior to encounter date) This section includes the most current, and the historical, smoking and tobacco- related health factors from the [place] facility where the Encounter took place. Current Smoking Status This section includes the most current smoking, or tobacco-related health factor, from the [place] facility where the Encounter took place. Date/Time Current Smoking Status Comment Frederick ity Dec 14, 2022 12:15 PM VA-TOBACCO NEVER USED [facility] Tobacco Use History This section includes a history of the smoking, or tobacco-related health factors, that were collected on or before the date of the Encounter. The data comes from the [place] facility where the Encounter took place. Date/Time Smoking Status/Tobacco Use Comment F acility Jan 10, 2019 10:51 AM VA-TOBACCO NEVER USED [facility] Advance Directives: All historical and current Section Date Range: From patient's date of to the date document was created. This section includes ALL of a patient's completed or amended [place] Advance and Rescinded Directives. The entries below indicate that a directive exists for the patient, but an actual copy is not included with this document. The data comes from all [place] facilities. Date Advance Directives Provider Source Aug 14, 2020 ADVANCE DIRECTIVE CRISTOPHER BENITEZ Encounter Notes: All associated encounter notes This section contains the clinical notes associated to the Encounter. Date/Time Encounter Note(s) Provider Source Feb 10, 2024 10:11 AM TELEPHONE ENCOUNTE R NOTE: LOCAL TITLE: TELEPHONE NOTE/SPECIALTY CLINIC STANDARD TITLE: TELEPHONE ENCOUNTER NOTE DATE OF NOTE: FEB 10, 2024@10:11 ENTRY DATE: FEB 10, 2024@10:11:32 AUTHOR: RUBIN CATALAN EXP COSIGNER: URGENCY: STATUS: COMPLETED Called and left message on voicemail. Patients appointment with optometry on 05/15/2024 has been cancelled and needs to be rescheduled with a PID of 04/01/2024 Letter mailed. appt to be rescheded on a Monday ADMINISTRATIVE CONTACT HAS orders: [facility] Able to contact patient: Spoke to Patient/Patient access representative per policy utilizing HIPAA Guidelines. Attempts to contact: 1st attempt: Left voicemail 2nd attempt: Letter mailed Disposition on Jan 3rd attempt: 4th attempt: /lalo/ RUBIN CATALAN ADVANCED BIOLOGIST Signed: 02/10/2024 10:13 RUBIN CATALAN CNTRL [facility]
--- OUTSIDE RECORDS SUMMARY | 2024-03-07 06:47 | XMS_ITS ---
Author Name [facility] [place] [facility] [place] Address [address] [place] [address] Care Team Providers Care Photo Intern Name Role Phone RAMONA GARCIA Primary Care Provider Unav ailable LADI, FABI Unavailable Unavailable JOE, DON Unavailable Unavailable CHAPUT, JOSHUA Unavailable Unavailable RAIVEL, KATIANA Unavailable Unavailable FEILEN, AYAKA Unavailable Unavailable SAUL ESTRELLA Unavailable Unavailable FRANK PIZANO Unavailable Unavailable Insurance [...] PART B Feb 27, 2017 PART B [id number] 45A REJI,GUSTAVO NRY PATIENT MEDICARE (WNR) MEDICARE (M) PART B Feb 27, 2017 PART B [id number] [phone] REJI,GUSTAVO NRY PATIENT MEDICARE (WNR) MEDICARE (M) PART A Feb 27, 2001 PART A [id number] [id number] WILGUS,HE NRY PATIENT MEDICARE (WNR) MEDICARE (M) PART A Feb 27, 2001 PART A [id number] GUSTAVO MENDOZA PATIENT Selected Encounter This section includes the information on record at [place] for the Encounter. Date/Time Encounter Type Encounter Description Reason Pro vider Source Jan 19, 2024 02:05 PM Outpatient Encounter [facility] PHYSIC EXTND(CAN STACKER,BOX TRUCK DRIVER,PA) IHE Encounter Template Text not used by [place] Plan of Treatment: Future Appointments (+ 6 months) and Future Tests (+/- 45 days) The Plan of Treatment section includes future care activities for the patient from all [place] [facility]. This section includes future appointments and future orders which are active, pending or scheduled. Future Appointments This section includes appointments that were scheduled to occur 6 months from the date of the Encounter, up to a maximum of 20 appointments. The data comes from all [facility] facilities. Appointment Date/Time Appointment Type Appointme nt Facility Name Apr 24, 2024 03:00 PM AMBULATORY - MEDICINE [facility] May 15, 2024 01:30 PM AMBULATORY - MEDICINE [facility] Active, Pending, and Scheduled Orders This section includes a listing of several types of active, pending, and scheduled orders, including clinic medications orders, diagnostic test orders, procedure orders and consult orders; where the start date of the order is 45 days before the date of the Encounter or 45 days after the date of theEncounter. The data comes from all [facility]. Test Date/Time Test Type Test Details Facility Name Dec 21, 2023 12:00 AM Laboratory - Chemistry Order BASIC METABOLIC PANEL (non-fasting) BLOOD (SST-SERUM) SP [facility] Jan 15, 2024 01:29 PM Consult Order PODIATRY/NHM OUTPT Cons Campaign Worker's Choice [facility] Jan 19, 2024 12:00 AM Laboratory - Chemistry Order URINALYSIS CLEAN CATCH URINE SP [facility] Jan 19, 2024 12:00 AM Laboratory - Microbiology Order URINE CULTURE(MWROX) URINE CLEAN CATCH SP [facility] Lab Results: +/- 30 days of the encounter This section includes the Chemistry and Hematology Lab Results on record with [place] for the patient. Radiology Reports and Pathology Reports are provided separately, in subsequent sections. Lab Results This section contains the Chemistry/Hematology Results that were resulted 30 days before or 30 daysafter the date of the Encounter. Date/Time Source Result Type Result - Unit Interpretation Reference Range Comment Jan 12, 2024 12:30 PM [facility] T3, FREE (QU) Specimen Type: SERUM Comment: Test Performed by [employer]ing[employer]omeo, [employer] [facility], [address] [place] [address] Yobani Bill M.D., Ph.D., Director of Laboratories , [place] [id number] TEST PERFORMED AT: , Ordering Provider: Alex GARCIA Report Released Date/Time: Jan 16, 2024 08:59 AM Reporting Lab: [facility] [address] [facility] [address] Performing Lab: [facility] [address] [address] T3, FREE (QU) 2.8 pg/mL 2.3-4.2 Jan 12, 2024 12:30 PM [facility] THYROID T4 FREE(FT4) (WROX) Specimen Type: SERUM No comment entered. Ordering Provider: Alex GARCIA Report Released Date/Time: Jan 16, 2024 08:59 AM Reporting Lab: [facility] [address] [facility] [address] Performing Lab: [facility]ITALTRN [facility]ITALUSETS [facility] [address] [facility] [address] THYROID T4 FREE(FT4) (WROX) 1.01 ng/dL 0.6-1.6 Jan 12, 2024 12:30 PM [facility] TSH Specimen Type: SERUM No comment entered. Ordering Provider: Alex GARCIA Report Released Date/Time: Dec 21, 2023 12:51 PM Reporting Lab: [facility]ITALUSE[address] [address] Performing Lab: [facility]ITALUSE[address] [address] TSH 5.88 u[IU]/mL H 0.35-5.00 Jan 12, 2024 12:30 PM [facility] VITAMIN B12 Specimen Type: SERUM No comment entered. Ordering Provider: Alex GARCIA Report Released Date/Time: Dec 21, 2023 12:51 PM Reporting Lab: [facility]PITALUSETS [facility] [address] [facility] [address] Performing Lab: [facility]OSPITALUSETS [facility] [address] [facility] [address] VITAMIN B12 721 pg/mL 200-900 Jan 12, 2024 12:30 PM [facility] FOLATE (WROX) Specimen Type: SERUM No comment entered. Ordering Provider: Alex GARCIA Report Released Date/Time: Dec 21, 2023 12:51 PM Reporting Lab: [facility]ITALUSETS [facility] [address] [facility] [address] Performing Lab: [facility]PITALUSETS [facility] [address] [facility] [address] FOLATE (WROX) 16.68 ng/mL >5.2 Jan 12, 2024 12:30 PM [facility] MAGNESIUM Specimen Type: SERUM No comment entered. Ordering Provider: Alex GARCIA Report Released Date/Time: Dec 21, 2023 12:51 PM Reporting Lab: [facility]ITALUSETS [address] [address] Performing Lab: [facility]OSPITALUSETS [address] [address] MAGNESIUM 2.1 mg/dL 1.6-2.6 Jan 12, 2024 12:30 PM [facility] LIVER FUNCTION Specimen Type: SERUM No comment entered. Ordering Provider: Alex GARCIA Report Released Date/Time: Dec 21, 2023 12:51 PM Reporting Lab: [facility]OSPITALUSETS [address] [address] Performing Lab: [facility] [address] [facility] [address] PROTEIN,TOTAL 6.1 g/dL 6.0-8.3 ALBUMIN 3.2 g/dL L 3.5-5.0 ALKALINE PHOSPHATASE 59 U/L 40-150 AST 13 U/L 5-34 ALT 15 U/L BILIRUBIN, TOTAL 0.4 mg/dL 0.2-1.2 Jan 12, 2024 12:30 PM [facility] CBC AND DIFF (AUTO) Specimen Type: BLOOD No comment entered. Ordering Provider: Alex GARCIA Report Released Date/Time: Dec 21, 2023 12:51 PM Reporting Lab: [facility] [address] [facility] [address] Performing Lab: [address] [address] WBC 4.45 10*3/uL L 4.50-11.00 RBC 4.96 [...] 2022 12:15 PM VA-TOBACCO NEVER USED [place] [facility] [address] [email or web address] [facility] Tobacco Use History This section includes a history of the smoking, or tobacco-related health factors, that were collected on or before the date of the Encounter. The data comes from the [place] facility where the Encounter took place. Date/Time Smoking Status/Tobacco Use Comment F acility Jan 10, 2019 10:51 AM VA-TOBACCO NEVER USED [place] [facility]LOUR[facility] Quest [facility] Advance Directives: All historical and current [...] Encounter. Date/Time Encounter Note(s) Provider Source Jan 19, 2024 02:07 PM ADDENDUM: LOCAL TITLE: Addendum STANDARD TITLE: ADDENDUM DATE OF NOTE: JAN 19, 2024@14:07:43 ENTRY DATE: JAN 19, 2024@14:07:44 AUTHOR: SAUL ESTRELLA COSIGNER: URGENCY: STATUS: COMPLETED plesae mail letter /lalo/ SAUL ESTRELLA CONCRETE TILE MACHINE OPERATOR-C [facility] NURSE PRACTITIONER Signed: 01/19/2024 14:07 Receipt Acknowledged By: 01/19/2024 14:31 /lalo/ AYAKA NGO HB TRAY WORKER --- Original Document --- 01/19/24 PATIENT LETTER (B): [facility] [address] [facility] [address] [phone] DILIA MENDOZA [address] [place], [place] [address] Date:JAN 19, 2024 Dear DILIA MENDOZA, I am the covering provider for JACKY Garcia. I am writing to inform you that your T3 level is normal this is a thyroid function test. If you have any questions follow up with your PCP. LAB CHEMISTRY & HEMATOLOGY Collection DT Specimen Test Name Result Units Ref Range 01/12/2024 12:30 SERUM !! T3, FREE (QU) 2.8 pg/mL 2.3 - 4.2 Please call [phone] if you have any questions or concerns. Sincerely, Saul Estrella Nurse Practitioner Home Based Primary care [facility] Upcoming Appointments: 04/24/2024 15:00 CWM/NO/PODIATRY/NAIL 05/15/2024 13:30 CWM/NO/OTOLARYNGOLOGY 05/15/2024 14:30 NHM/OPTOMETRY/BORASKI APPOINTMENT [facility]RE[facility]ATION [place] == (SPOPC OR SO = [place], [address] [facility]) (GOPC OR GO = [place], [address] [place] [address]) (NHM or NO = [facility]) (VVC - Video Call) (Tel-X Telephone Visit) (TH - Telehealth) SAUL ESTRELLA [place] [facility] Jan 19, 2024 02:05 PM LETTERS: LOCAL TITLE: PATIENT LETTER (B) STANDARD TITLE: LETTERS DATE OF NOTE: JAN 19, 2024@14:05 ENTRY DATE: JAN 19, 2024@14:05:50 AUTHOR: SAUL ESTRELLA EXP COSIGNER: URGENCY: STATUS: COMPLETED PATIENT LETTER (B) Has ADDENDA [facility] [address] [facility] [address] [phone] DILIA MENDOZA [address] [place], [place] [address] Date:JAN 19, 2024 Dear DILIA MENDOZA, I am the covering provider for JACKY Garcia. I am writing to inform you that your T3 level is normal this is a thyroid function test. If you have any questions follow up with your PCP. LAB CHEMISTRY & HEMATOLOGY Collection DT Specimen Test Name Result Units Ref Range 01/12/2024 12:30 SERUM !! T3, FREE (QU) 2.8 pg/mL 2.3 - 4.2 Please call [phone] if you have any questions or concerns. Sincerely, Saul Estrella Nurse Practitioner Home Based Primary care [facility] Upcoming Appointments: 04/24/2024 15:00 CWM/NO/PODIATRY/NAIL 05/15/2024 13:30 CWM/NO/OTOLARYNGOLOGY 05/15/2024 14:30 NHM/OPTOMETRY/BORASKI APPOINTMENT [facility] [place] == (SPOPC OR SO = [place], [address] [facility]) (GOPC OR GO = [address]) (NHM or NO = [facility]) (VVC - Video Call) (Tel-X Telephone Visit) ( - Telehealth) 01/19/2024 ADDENDUM STATUS: COMPLETED plesae mail letter /lalo/ SAUL ESTRELLA CONCRETE TILE MACHINE OPERATOR-C [facility] NURSE PRACTITIONER Signed: 01/19/2024 14:07 Receipt Acknowledged By: * AWAITING SIGNATURE * AYAKA GNO LEIGH A [facility]N [facility]
--- OUTSIDE RECORDS SUMMARY | 2024-03-07 06:47 | XMS_ITS ---
Author Name [facility] [place] Organization [place] Address [address] [place] [address] Care Team Providers Care Signals Intelligence Superintendent Name Role Phone RAMONA HUNTER Primary Care [...] PART B Feb 27, 2017 PART B [id number] ARONGUS,GUSTAVO NRY PATIENT MEDICARE (WNR) MEDICARE (M) PART B Feb 27, 2017 PART B [id number] ARONGUS,GUSTAVO NRY PATIENT MEDICARE (WNR) MEDICARE (M) PART A Feb 27, 2001 PART A [id number] [id number] WILGUS,GUSTAVO NRY PATIENT MEDICARE (WNR) MEDICARE (M) PART A Feb 27, 2001 PART A [id number] [phone] WILGUS,HE NRY PATIENT Selected Encounter This section includes the information on record at [place] for the Encounter. Date/Time Encounter Type Encounter Description Reason Pro vider Source Jul 31, 2023 12:00 AM Outpatient Encounter COMMUNITY CARE [...] 20 appointments. The data comes from all [place] treatment facilities. Appointment Date/Time Appointment Type Appointme nt Facility Name Oct 04, 2023 02:00 PM AMBULATORY - [place]HAB [place] [facility] Oct 04, 2023 03:00 PM AMBULATORY - MEDICINE [facility] NTRL [place] [facility] Oct 04, 2023 03:30 PM AMBULATORY - MEDICINE [facility] NTRL [place] [facility] Oct 04, 2023 04:15 PM AMBULATORY - MEDICINE [place] [facility] Nov 28, 2023 08:00 AM AMBULATORY - MEDICINE [facility] NTRL [place] [facility] Dec 08, 2023 08:00 AM AMBULATORY - MEDICINE [place] Dec 08, 2023 03:00 PM AMBULATORY - REHAB MEDICIN [place] [facility] Jan 11, 2024 11:25 AM [facility] - [facility] Social History: Smoking Status (Most [...] 14, 2022 12:15 PM VA-TOBACCO [facility]ED [facility] Tobacco Use History This section includes a history of the smoking, or tobacco-related health factors, that were collected on or before the date of the Encounter. The data comes from the [place] facility where the Encounter took place. Date/Time Smoking Status/Tobacco Use Comment F acility Jan 10, 2019 10:51 AM VA-TOBACCO NEVER USED [facility] Advance Directives: All historical and [...] the Encounter. Date/Time Encounter Note(s) Provider Source Jul 31, 2023 12:00 AM NONVA CONSULT: LOCAL TITLE: COMMUNITY CARE-CONSULT RESULT NOTE STANDARD TITLE: NONVA CONSULT DATE OF NOTE: JUL 31, 2023 ENTRY DATE: FEB 01, 2024@14:26:58 AUTHOR: LIZETT VALENZUELA EXP COSIGNER: URGENCY: STATUS: COMPLETED VistA Imaging - Scanned Document SCANNED DOCUMENT SIGNATURE NOT REQUIRED Electronically Filed: 02/01/2024 by: LIZETT ERICKSON [facility]
--- OUTSIDE RECORDS SUMMARY | 2024-03-07 06:47 | XMS_ITS | Encounter Summary ---
Author Name Department [place] Address [address] [place] [id number] Care Team Providers Care Installation Technician Name Role Phone SARAY GARCIA Primary Care [...] PART B Feb 27, 2017 PART B [id number] REJI,GUSTAVO NRY PATIENT MEDICARE (WNR) MEDICARE (M) PART B Feb 27, 2017 PART B [id number] [phone] GUSTAVO MENDOZA NRY PATIENT MEDICARE (WNR) MEDICARE () PART A Feb 27, 2001 PART A [id number] REJI,GUSTAVO NRY PATIENT MEDICARE (WNR) MEDICARE (M) PART A Feb 27, 2001 PART A [id number] GUSTAVO MENDOZA PATIENT Selected Encounter This section includes the information on record at [place] for the Encounter. Date/Time Encounter Type Encounter Description Reason Provider Source Feb 12, 2024 03:01 PM HC PRO PHONE CALL 5-10 MIN TELEPHONE [facility] ICD-10-CM G30.9 Alzheimer's disease, unspecified JODI SUTTON Yg Encounter Template Text not used by [place] Assessments - Encounter Diagnoses This section includes the primary and secondary diagnoses documented for the Encounter. Date/Time Primary/Secondary Diagnosis Diagnosis Name Provider Source Feb 12, 2024 03:01 PM PRIMARY Alzheimer's disease, unspecified JODI SUTTON [facility] Feb 12, 2024 03:01 PM SECONDARY Dem in oth dis classd elswhr,unsp sev,w/o beh/psych/mood/an x JODI SUTTON [facility] Plan of Treatment: Future Appointments (+ 6 months) and Future Tests (+/- 45 days) The Plan of Treatment section includes future care activities for the patient from all [place] [facility]. This section includes future appointments and future orders which are active, pending or scheduled. Future Appointments This section includes appointments that were scheduled to occur 6 months from the date of the Encounter, up to a maximum of 20 appointments. The data comes from all [facility]. Appointment Date/Time Appointment Type Appointme nt Facility Name Apr 24, 2024 03:00 PM AMBULATORY - MEDICINE [facility] May 15, 2024 01:30 PM AMBULATORY - MEDICINE [facility] Active, Pending, and Scheduled Orders This [...] 01:29 PM Consult Order PODIATRY/NHM OUTPT Cons Manager Clinical Pharmacy's Choice [facility] Jan 19, 2024 12:00 AM Laboratory - Chemistry Order URINALYSIS CLEAN CATCH URINE SP [facility] [place] [facility] Jan 19, 2024 12:00 AM Laboratory - Microbiology Order URINE CULTURE(MWROX) URINE CLEAN CATCH SP [facility] Social History: Smoking Status (Most current) [...] 14, 2022 12:15 PM VA-TOBACCO NEVER USED [facility] Tobacco Use History This section includes a history of the smoking, or tobacco-related health factors, that were collected on or before the date of the Encounter. The data comes from the [place] facility where the Encounter took place. Date/Time Smoking Status/Tobacco Use Comment F acility Jan 10, 2019 10:51 AM VA-TOBACCO NEVER USED [facility] Advance Directives: All historical and current Section [...] Encounter. Date/Time Encounter Note(s) Provider Source Feb 19, 2024 02:49 PM ACCOUNTING OF DISCLOSURES NOTE: LOCAL TITLE: STATE PRESCRIPTION DRUG MONITORING PROGRAM STANDARD TITLE: ACCOUNTING OF DISCLOSURES NOTE DATE OF NOTE: FEB 19, 2024@14:49:07 ENTRY DATE: FEB 19, 2024@14:49:07 AUTHOR: KERI GARCIA COSIGNER: URGENCY: STATUS: COMPLETED This PDMP query was submitted by Saray Garcia PRICE ECONOMIST. The clinical justification for this PDMP query is to review controlled substances prescribed outside of the [place], and any additional information that may become available, as an important component of standard clinical care, and in accordance with [facility] policy. Patient information was shared with the [facility] Appriss Lyons. No prescription(s) for controlled substances outside the [facility] were found in the last 90 days. /lalo/ SARAY GARCIA RN,MSN,DIRECTOR BUSINESS DEVELOPMENT-C [facility] NURSE PRACTITIONER Signed: 02/19/2024 14:49 KERI GARCIA A [facility] [place] [facility] Feb 12, 2024 03:11 PM ADDENDUM: LOCAL TITLE: Addendum STANDARD TITLE: ADDENDUM DATE OF NOTE: FEB 12, 2024@15:11 ENTRY DATE: FEB 12, 2024@15:11 AUTHOR: RAÚL SUTTON COSIGNER: URGENCY: STATUS: COMPLETED Caregiver also requesting refill for Docusate as its showing on hold and she is unable to request it using portal. /bettye SUTTON RN [facility] appeals writer Signed: 02/12/2024 15:12 Receipt Acknowledged By: 02/12/2024 15:14 /lalo/ SARAY GARCIA RN,MSN,DIRECTOR BUSINESS DEVELOPMENT-C [facility] NURSE PRACTITIONER ====== --- Original Document --- 02/12/24 [facility] TELEPHONE NOTE: Duration of call: 5 min Call received from SO/HCP Lakshmi to report that intake has been reschedule for 03/06. Lakshmi was informed that if does not willingly go for intake on 03/06 he will lose the bed and the process will need to be restarted. [place] has been anxious regarding the move to [facility]. Caregiver inquiring if PRICE ECONOMIST will prescribe anxiety medication to ease anxiety with the move and changes. 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 Adding PRICE ECONOMIST /lalo/ JODI SUTTON RN [facility] appeals writer Signed: 02/12/2024 15:09 Receipt Acknowledged By: * AWAITING SIGNATURE * SARAY GARCIA GABR IELA [facility] Feb 12, 2024 03:01 PM [facility] NOTE: LOCAL TITLE: [facility] TELEPHONE NOTE STANDARD TITLE: [facility] NOTE DATE OF NOTE: FEB 12, 2024@15:01 ENTRY DATE: FEB 12, 2024@15:02:04 AUTHOR: RAÚL SUTTON EXP COSIGNER: URGENCY: STATUS: COMPLETED [facility] TELEPHONE NOTE Has ADDENDA Duration of call: 5 min Call received from SO/HCP Lakshmi to report that intake has been reschedule for 03/06. Lakshmi was informed that if does not willingly go for intake on 03/06 he will lose the bed and the process will need to be restarted. [place] [facility] Caregiver inquiring if PRICE ECONOMIST will prescribe anxiety medication to ease anxiety with the move and changes. 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 Adding PRICE ECONOMIST /lalo/ JODI SUTTON RN HBVICENTE appeals writer Signed: 02/12/2024 15:09 Receipt Acknowledged By: 02/12/2024 15:15 /lalo/ SARAY GARCIA RN,MSN,DIRECTOR BUSINESS DEVELOPMENT-C [facility] NURSE PRACTITIONER 02/12/2024 ADDENDUM STATUS: COMPLETED Caregiver also requesting refill for Docusate as its showing on hold and she is unable to request it using portal. /lalo/ JODI SUTTON RN HBVICENTE appeals writer Signed: 02/12/2024 15:12 Receipt Acknowledged By: 02/12/2024 15:14 /lalo/ SARAY GARCIA RN,MSN,DIRECTOR BUSINESS DEVELOPMENT-C [facility] NURSE PRACTITIONER RAÚL SUTTON [facility] [employer]
--- OUTSIDE RECORDS SUMMARY | 2024-03-07 06:47 | XMS_ITS | Encounter Summary ---
Author Name [facility] [place] Address [address] [place] [id number] Care Team Providers Care Care Attendant Name Role Phone RAMONA HUNTER Primary Care Provider Unav ailable FABI BLEDSOE Unavailable Unavailable ODN DIAZ Unavailable Unavailable CHAPUT, JOSHUA Unavailable Unavailable [...] PART B Feb 27, 2017 PART B [id number] REJI,GUSTAVO NRY PATIENT MEDICARE (WNR) MEDICARE (M) PART B Feb 27, 2017 PART B [id number] [phone] GUSTAVO MENDOZA NRY PATIENT MEDICARE (WNR) MEDICARE () PART A Feb 27, 2001 PART A [id number] REJI,GUSTAVO NRY PATIENT MEDICARE (WNR) MEDICARE (M) PART A Feb 27, 2001 PART A [id number] GUSTAVO MENDOZA PATIENT Selected Encounter This section includes the information on record at [place] for the Encounter. Date/Time Encounter Type Encounter Description Reason Provider Source Feb 09, 2024 08:30 AM PRO PHONE CALL 5-10 MIN TELEPHONE [facility] ICD-10-CM G30.9 Alzheimer's disease, unspecified JODI SUTTON Yg Encounter Template Text not used by [place] Assessments - Encounter Diagnoses This section includes the primary and secondary diagnoses documented for the Encounter. Date/Time Primary/Secondary Diagnosis Diagnosis Name Provider Source Feb 09, 2024 08:30 AM PRIMARY Alzheimer's disease, unspecified [facility]ODI SUTTON [facility] Feb 09, 2024 08:30 AM SECONDARY Dem in oth dis classd elswhr,unsp sev,w/o beh/psych/mood/an x JODI SUTTON [facility] Plan of Treatment: Future Appointments (+ 6 months) and Future Tests (+/- 45 days) The Plan of Treatment section includes future care activities for the patient from all [place] [facility]. This section includes future appointments and future orders which are active, pending or scheduled. Future Appointments This section includes appointments that were scheduled to occur 6 months from the date of the Encounter, up to a maximum of 20 appointments. The data comes from all [facility]. Appointment Date/Time Appointment Type Appointme nt Facility Name Apr 24, 2024 03:00 PM AMBULATORY - MEDICINE [facility] May 15, 2024 01:30 PM AMBULATORY - MEDICINE [facility] Active, Pending, and Scheduled Orders This section includes a listing of several types of active, pending, and scheduled orders, including clinic medications orders, diagnostic test orders, procedure orders and consult orders; where the start date of the order is 45 days before the date of the Encounter or 45 days after the date of theEncounter. The data comes from all [facility]. Test Date/Time Test Type Test Details Facility Name Jan 15, 2024 01:29 PM Consult Order PODIATRY/NHM OUTPT Cons Page Makeup System Operator's Choice [facility] Jan 19, 2024 12:00 AM Laboratory - Chemistry Order URINALYSIS CLEAN CATCH URINE SP [facility] [place] [place] [facility] Jan 19, 2024 12:00 AM Laboratory - Microbiology Order URINE CULTURE(MWROX) URINE CLEAN CATCH SP [facility] Lab Results: +/- 30 days of [...] Range Comment Jan 12, 2024 12:30 PM [facility] T3, FREE (QU) Specimen Type: SERUM Comment: Test Performed by [employer], [facility], [address] [place] [address] Yobani Bill M.D., Ph.D., Director of Laboratories , [facility] [id number] TEST PERFORMED AT: , Ordering Provider: Alex HUNTER Report Released Date/Time: Jan 16, 2024 08:59 AM Reporting Lab: [facility] [address] [facility] [address] Performing Lab: [facility] [address] [address] T3, FREE (QU) 2.8 pg/mL 2.3-4.2 Jan 12, 2024 12:30 PM [facility] THYROID T4 FREE(FT4) (WROX) Specimen Type: SERUM No comment entered. Ordering Provider: Alex HUNTER Report Released Date/Time: Jan 16, 2024 08:59 AM Reporting Lab: [facility] [address] [facility] [address] Performing Lab: [facility] [address] [facility] [address] THYROID T4 FREE(FT4) (WROX) 1.01 ng/dL 0.6-1.6 Jan 12, 2024 12:30 PM [facility] TSH Specimen Type: SERUM No comment entered. Ordering Provider: Alex HUNTER Report Released Date/Time: Dec 21, 2023 12:51 PM Reporting Lab: [facility] TRN [facility] [address] [facility] [address] Performing Lab: [facility]RL TRN [facility] [address] [facility] [address] TSH 5.88 u[IU]/mL H 0.35-5.00 Jan 12, 2024 12:30 PM [facility] VITAMIN B12 Specimen Type: SERUM No comment entered. Ordering Provider: Alex HUNTER Report Released Date/Time: Dec 21, 2023 12:51 PM Reporting Lab: [facility]ENTERRUSA [facility]OS[facility]ITALN [facility] [address] [facility] [address] Performing Lab: [facility]ENTERRUSA [facility]OS[facility]ITALN [facility]ETS [address] [address] VITAMIN B12 721 pg/mL 200-900 Jan 12, 2024 12:30 PM [facility]ENTERRUSA [facility] HOSPITALN [facility] FOLATE (WROX) Specimen Type: SERUM No comment entered. Ordering Provider: Alex HUNTER Report Released Date/Time: Dec 21, 2023 12:51 PM Reporting Lab: [facility] TRN [facility] [address] [facility] [address] Performing Lab: [facility]RL [facility] [address] [facility] [address] FOLATE (WROX) 16.68 ng/mL >5.2 Jan 12, 2024 12:30 PM [facility]ENTERRUSA [facility] HOSPITALN [facility] MAGNESIUM Specimen Type: SERUM No comment entered. Ordering Provider: Alex HUNTER Report Released Date/Time: Dec 21, 2023 12:51 PM Reporting Lab: [facility]RL TRN [facility] [address] [facility] [address] Performing Lab: [facility]ENTERRUSA [facility] HOSPITALN [facility]ETS [address] [address] MAGNESIUM 2.1 mg/dL 1.6-2.6 Jan 12, 2024 12:30 PM [facility] LIVER FUNCTION Specimen Type: SERUM No comment entered. Ordering Provider: Alex HUNTER Report Released Date/Time: Dec 21, 2023 12:51 PM Reporting Lab: [address] [address] Performing Lab: [address] [address] PROTEIN,TOTAL 6.1 g/dL 6.0-8.3 ALBUMIN 3.2 g/dL L 3.5-5.0 ALKALINE PHOSPHATASE 59 U/L 40-150 AST 13 U/L 5-34 ALT 15 U/L BILIRUBIN, TOTAL 0.4 mg/dL 0.2-1.2 Jan 12, 2024 12:30 PM [facility] CBC AND DIFF (AUTO) Specimen Type: BLOOD No comment entered. Ordering Provider: Alex HUNTER Report Released Date/Time: Dec 21, 2023 12:51 PM Reporting Lab: [address] [address] Performing Lab: [address] [address] WBC 4.45 10*3/uL L 4.50-11.00 RBC 4.96 [...] and tobacco- related health factors from the [place] facility where the Encounter took place. Current Smoking Status This section includes the most current smoking, or tobacco-related health factor, from the [place] facility where the Encounter took place. Date/Time Current Smoking Status Comment Frederick varner Dec 14, 2022 12:15 PM VA-TOBACCO NEVER USED [facility] Tobacco Use History This section includes a history of the smoking, or tobacco-related health factors, that were collected on or before the date of the Encounter. The data comes from the [place] facility where the Encounter took place. Date/Time Smoking Status/Tobacco Use Comment Dane rogelio Jan 10, 2019 10:51 AM VA-TOBACCO NEVER USED [facility] Advance Directives: All historical and current Section Date Range: From patient's date of to the date document was created. This section includes ALL of a patient's completed or amended [place] Advance and Rescinded Directives. The entries below indicate that a directive exists for the patient, but an actual copy is not included with this document. The data comes from all [place] facilities. Date Advance Directives Provider Source Aug 14, 2020 ADVANCE DIRECTIVE CRISTOPHER BENITEZ Encounter Notes: All associated encounter notes This section contains the clinical notes associated to the Encounter. Date/Time Encounter Note(s) Provider Source Feb 09, 2024 08:30 AM [facility] NOTE: LOCAL TITLE: [facility] TELEPHONE NOTE STANDARD TITLE: [facility] NOTE DATE OF NOTE: FEB 09, 2024@08:30 ENTRY DATE: FEB 09, 2024@13:58:16 AUTHOR: RAÚL SUTTON EXP COSIGNER: URGENCY: STATUS: COMPLETED Duration of call: 10 min Call received from SO Lakshmi to report [facility] not [facility] as schedule. Lakshmi [facility] since Monday was a bad weather day . When arrived was very anxious and kept asking caregiver where he was going. Caregiver was honest with and told him that she was [facility]. Per caregiver reported became anxious and stated I'm not going, I want to stay here . This made caregiver upset and she is reaching out to LINUX SERVER ADMINISTRATOR to inquired if giving a medication to treat his anxiety regarding this change possible. Caregiver is currently waiting to hear back from [facility] staff to determine when the next intake day will be scheduled. Adding LINUX SERVER ADMINISTRATOR /es/ JODI SUTTON RN [facility] laborer [employer] Signed: 02/09/2024 14:12 BEBA SUTTON [place] [facility]
--- OUTSIDE RECORDS SUMMARY | 2024-03-07 06:47 | XMS_ITS ---
Author Name [place] Address [address] [place] [address] Care Team Providers Care Stock Transfer Clerk Name Role Phone RAMONA HUNTER Primary [...] PART B Feb 27, 2017 PART B [id number] [phone] ARONGUS,GUSTAVO NRY PATIENT MEDICARE (WNR) MEDICARE (M) PART B Feb 27, 2017 PART B [id number] ARONGUS,GUSTAVO NRY PATIENT MEDICARE (WNR) MEDICARE (M) PART A Feb 27, 2001 PART A [id number] WILGUS,GUSTAVO NRY PATIENT MEDICARE (WNR) MEDICARE (M) PART A Feb 27, 2001 PART A [id number] WILGUS,HE NRY PATIENT Selected Encounter This section includes the [place] on [place] at [place] for the Encounter. Date/Time Encounter Type Encounter Description Reason Pro vider Source Sep 05, 2023 12:00 AM Outpatient Encounter COMMUNITY CARE CONSULT IHE Encounter Template Text not used by [place] Plan of Treatment: Future Appointments (+ 6 months) and Future Tests (+/- 45 days) The Plan of Treatment section includes future care activities for the patient from all [place] treatmentfacilities. This section includes future appointments and [...] 02:00 PM AMBULATORY - [place] [facility] Oct 04, 2023 03:00 PM AMBULATORY - MEDICINE [facility]L [place] [facility] Oct 04, 2023 03:30 PM AMBULATORY - MEDICINE [facility]L [place] [facility] Oct 04, 2023 04:15 PM AMBULATORY - MEDICINE [place] [facility] Nov 28, 2023 08:00 AM AMBULATORY - MEDICINE [facility] N[place]L [place] [facility] Dec 08, 2023 08:00 AM AMBULATORY - MEDICINE [facility] Dec 08, 2023 03:00 PM AMBULATORY - [place] [facility] Jan 11, 2024 11:25 AM AMBULATORY - MEDICINE [facility] Social History: Smoking Status (Most [...] 14, 2022 12:15 PM VA-TOBACCO [facility] USED [facility] Tobacco Use History This section includes a history of the smoking, or tobacco-related health factors, that were collected on or before the date of the Encounter. The data comes from the [place] facility where the Encounter took place. Date/Time Smoking Status/Tobacco Use Comment F acility Jan 10, 2019 10:51 AM VA-TOBACCO NEVER USED [facility] Advance Directives: All historical and [...] Encounter Note(s) Provider Source Sep 05, 2023 12:00 AM NONVA CONSULT: LOCAL TITLE: COMMUNITY CARE-CONSULT RESULT NOTE STANDARD TITLE: NONVA CONSULT DATE OF NOTE: SEP 05, 2023 ENTRY DATE: FEB 01, 2024@14:27:55 AUTHOR: LIZETT VALENZUELA EXP COSIGNER: URGENCY: STATUS: COMPLETED VistA Imaging - Scanned Document SCANNED DOCUMENT SIGNATURE NOT REQUIRED Electronically Filed: 02/01/2024 by: LIZETT ERICKSON [facility]
--- OUTSIDE RECORDS SUMMARY | 2024-03-07 06:47 | XMS_ITS ---
Author Name [place] Address [address] [place] [address] Care Team Providers Care Floor Layer Helper Name Role Phone RAMONA HUNTER Primary [...] PART B Feb 27, 2017 PART B [id number] REJI,GUSTAVO NRY PATIENT MEDICARE (WNR) MEDICARE (M) PART B Feb 27, 2017 PART B [id number] ARONGUS,GUSTAVO NRY PATIENT MEDICARE (WNR) MEDICARE (M) PART A Feb 27, 2001 PART A [id number] [phone] ARONGUS,HE NRY PATIENT MEDICARE (WNR) MEDICARE (M) PART A Feb 27, 2001 PART A [id number] WILGUS,HE NRY PATIENT Selected Encounter This section includes the information on record at [place] for the Encounter. Date/Time Encounter Type Encounter Description Reason Pro vider Source Jan 31, 2024 11:32 AM Outpatient Encounter OPTOMETRY IHE Encounter Template Text not used by CT Plan of Treatment: Future Appointments (+ 6 months) and Future Tests (+/- 45 days) The Plan of Treatment section includes future care activities for the patient from all [place] [facility]. This section includes future [...] 24, 2024 03:00 PM AMBULATORY - MEDICINE [facility] May 15, 2024 01:30 PM AMBULATORY - MEDICINE [facility] Active, Pending, and Scheduled Orders This section includes a listing of several types of active, pending, and scheduled orders, including clinic medications orders, diagnostic test orders, procedure orders and consult orders; where the start date of the order is 45 days before the date of the Encounter or 45 days after the date of theEncounter. The data comes from all [facility]. Test Date/Time Test Type Test Details Facility Name Dec 21, 2023 12:00 AM Laboratory - Chemistry Order BASIC METABOLIC PANEL (non-fasting) BLOOD (SST-SERUM) SP [facility] Jan 15, 2024 01:29 PM Consult Order PODIATRY/NHM OUTPT Cons Stakes Player's Choice [facility] Jan 19, 2024 12:00 AM Laboratory - Microbiology Order URINE CULTURE(MWROX) URINE CLEAN CATCH SP [facility] Jan 19, 2024 12:00 AM Laboratory - Chemistry Order URINALYSIS CLEAN CATCH URINE SP [facility] Lab Results: +/- 30 days of [...] Range Comment Jan 12, 2024 12:30 PM [facility] T3, FREE (QU) Specimen Type: SERUM Comment: Test Performed by Ronda Rodriguez, [facility], [address] [place] [address] Yobani Bill M.D., Ph.D., Director of Laboratories , [place] [id number] TEST PERFORMED AT: , Ordering Provider: Alex HUNTER Report Released Date/Time: Jan 16, 2024 08:59 AM Reporting Lab: [facility] [address] [address] Performing Lab: [facility] [address] [address] T3, FREE (QU) 2.8 pg/mL 2.3-4.2 Jan 12, 2024 12:30 PM [facility] THYROID T4 FREE(FT4) (WROX) Specimen Type: SERUM No comment entered. Ordering Provider: Alex HUNTER Report Released Date/Time: Jan 16, 2024 08:59 AM Reporting Lab: [facility] [address] [address] Performing Lab: [facility] [address] [facility] [address] THYROID T4 FREE(FT4) (WROX) 1.01 ng/dL 0.6-1.6 Jan 12, 2024 12:30 PM [facility] VITAMIN B12 Specimen Type: SERUM No comment entered. Ordering Provider: Alex HUNTER Report Released Date/Time: Dec 21, 2023 12:51 PM Reporting Lab: [facility]ITALTRN [facility]ITALUSETS [facility] [address] [address] Performing Lab: [facility] [address] VITAMIN B12 721 pg/mL 200-900 Jan 12, 2024 12:30 PM [facility] [place] [facility] FOLATE (WROX) Specimen Type: SERUM No comment entered. Ordering Provider: Alex HUNTER Report Released Date/Time: Dec 21, 2023 12:51 PM Reporting Lab: [facility] [place] [facility] [address] [address] Performing Lab: [facility] [place] [facility] [address] [facility] [address] FOLATE (WROX) 16.68 ng/mL >5.2 Jan 12, 2024 12:[address] [facility] TSH Specimen Type: SERUM No comment entered. Ordering Provider: Alex HUNTER Report Released Date/Time: Dec 21, 2023 12:51 PM Reporting Lab: [place] [address] [address] Performing Lab: [place] [address] [address] TSH 5.88 u[IU]/mL H 0.35-5.00 Jan 12, 2024 12:30 PM [facility] MAGNESIUM Specimen Type: SERUM No comment entered. Ordering Provider: Alex HUNTER Report Released Date/Time: Dec 21, 2023 12:51 PM Reporting Lab: [facility] [place] [address] [address] Performing Lab: [facility] [place] [address] [address] MAGNESIUM 2.1 mg/dL 1.6-2.6 Jan 12, 2024 12:[address] [facility] LIVER FUNCTION Specimen Type: SERUM No comment entered. Ordering Provider: Alex HUNTER Report Released Date/Time: Dec 21, 2023 12:51 PM Reporting Lab: [facility] [place] [address] [address] Performing Lab: [facility] [place] [address] [address] PROTEIN,TOTAL 6.1 g/dL 6.0-8.3 ALBUMIN 3.2 g/dL L 3.5-5.0 ALKALINE PHOSPHATASE 59 U/L 40-150 AST 13 U/L 5-34 ALT 15 U/L BILIRUBIN, TOTAL 0.4 mg/dL 0.2-1.2 Jan 12, 2024 12:30 PM [facility] CBC AND DIFF (AUTO) Specimen Type: BLOOD No comment entered. Ordering Provider: Alex HUNTER Report Released Date/Time: Dec 21, 2023 12:51 PM Reporting Lab: [facility] [address] [address] Performing Lab: [facility] [address] [address] WBC 4.45 10*3/uL L 4.50-11.00 RBC 4.96 [...] 14, 2022 12:15 PM VA-TOBACCO NEVER USED [facility] Tobacco Use History This section includes a history of the smoking, or tobacco-related health factors, that were collected on or before the date of the Encounter. The data comes from the [place] facility where the Encounter took place. Date/Time Smoking Status/Tobacco Use Comment F acility Jan 10, 2019 10:51 AM VA-TOBACCO NEVER USED [facility] Advance Directives: All historical and [...] Encounter. Date/Time Encounter Note(s) Provider Source Jan 31, 2024 11:32 AM TELEPHONE ENCOUNTE R NOTE: LOCAL TITLE: TELEPHONE NOTE/SPECIALTY CLINIC STANDARD TITLE: TELEPHONE ENCOUNTER NOTE DATE OF NOTE: JAN 31, 2024@11:32 ENTRY DATE: JAN 31, 2024@11:32:34 AUTHOR: JOHN SOTELO EXP COSIGNER: URGENCY: STATUS: COMPLETED needs refill on eye drops for per secure message. /lalo/ JOHN SOTELO ADVANCED SENIOR NET ENGINEER Signed: 01/31/2024 11:34 Receipt Acknowledged By: 01/31/2024 11:44 /lalo/ ADALID VALDEZ OD STAFF ELECTRO MECHANICAL DESIGNER JOHN SOTELO [facility]
--- OUTSIDE RECORDS SUMMARY | 2024-03-07 06:47 | XMS_ITS ---
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 Date/Time Encounter Type Encounter Description Reason Provider Source Jan 12, 2024 11:30 AM MEASURE BLOOD OXYGEN LEVEL [facility] Nursing (RN / LP) ICD-10-CM G30.9 Alzheimer's disease, unspecified JODI SUTTON Yg Encounter Template Text not used by [place] Assessments - Encounter Diagnoses This section includes the primary and secondary diagnoses documented for the Encounter. Date/Time Primary/Secondary Diagnosis Diagnosis Name Provider Source Jan 15, 2024 06:33 PM PRIMARY Alzheimer's disease, unspecified ALBERTO ZELAYANEW [facility] Jan 15, 2024 06:33 PM SECONDARY Dem in oth dis classd elswhr,unsp sev,w/o beh/psych/mood/anx [facility] Jan 15, 2024 06:33 PM SECONDARY Hypertensive heart disease without heart failure [facility] Plan of Treatment: Future Appointments (+ 6 months) and Future Tests (+/- 45 days) The Plan of Treatment section includes future care activities for the patient from all [place] [facility] This section includes future appointments and future orders which are active, pending or scheduled. Future Appointments This section includes appointments that were scheduled to occur 6 months from the date of the Encounter, up to a maximum of 20 appointments. The data comes from all [place] treatment [facility]. Appointment Date/Time Appointment Type Appointme nt Facility Name Apr 24, 2024 03:00 PM AMBULATORY - MEDICINE [facility] May 15, 2024 01:30 PM AMBULATORY - MEDICINE [facility] Active, Pending, and [...] of theEncounter. The data comes from all [place] treatment [facility]. Test Date/Time Test Type Test Details Facility Name Dec 21, 2023 12:00 AM Laboratory - Chemistry Order BASIC METABOLIC PANEL (non-fasting) BLOOD (SST-SERUM) SP [facility] Jan 15, 2024 01:29 PM Consult Order PODIATRY/NHM OUTPT Cons Project Management Instructor's Choice [facility] [place] [facility] Jan 19, 2024 12:00 AM Laboratory - Chemistry Order URINALYSIS CLEAN CATCH URINE SP [facility] Jan 19, 2024 12:00 AM Laboratory - Microbiology Order URINE CULTURE(MWROX) URINE CLEAN CATCH SP [facility] Lab Results: +/- 30 days of the [...] Range Comment Jan 12, 2024 12:30 PM [facility] T3, FREE (QU) Specimen Type: SERUM Comment: Test Performed by [facility], [address] [place] [address] Yobani Bill M.D., Ph.D., Director of Laboratories , [facility] [id number] TEST PERFORMED AT: , Ordering Provider: Alex HUNTER Report Released Date/Time: Jan 16, 2024 08:59 AM Reporting Lab: [facility] [address] [facility] [address] Performing Lab: [facility] [address] [address] T3, FREE (QU) 2.8 pg/mL 2.3-4.2 Jan 12, 2024 12:30 PM [facility] THYROID T4 FREE(FT4) (WROX) Specimen Type: SERUM No comment entered. Ordering Provider: Alex HUNTER Report Released Date/Time: Jan 16, 2024 08:59 AM Reporting Lab: [facility] [address] [facility] [address] Performing Lab: [place] [facility] [place] [facility] [address] [facility] [facility] [address] THYROID T4 FREE(FT4) (WROX) 1.01 ng/dL 0.6-1.6 Jan 12, 2024 12:30 PM [facility] [place] [facility] TSH Specimen Type: SERUM No comment entered. Ordering Provider: Alex HUNTER Report Released Date/Time: Dec 21, 2023 12:51 PM Reporting Lab: [facility] [place] [facility] [address] [facility] [address] Performing Lab: [place] [facility] [place] [facility] [address] [facility] [address] TSH 5.88 u[IU]/mL H 0.35-5.00 Jan 12, 2024 12:30 PM [facility] VITAMIN B12 Specimen Type: SERUM No comment entered. Ordering Provider: Alex HUNTER Report Released Date/Time: Dec 21, 2023 12:51 PM Reporting Lab: [place] [facility] [place] [facility] [address] [facility] [address] Performing Lab: [place] [facility] [place] [facility] [address] [facility] [address] VITAMIN B12 721 pg/mL 200-900 Jan 12, 2024 12:30 PM [facility] FOLATE (WROX) Specimen Type: SERUM No comment entered. Ordering Provider: Alex HUNTER Report Released Date/Time: Dec 21, 2023 12:51 PM Reporting Lab: [place] [facility] [place] [facility] [address] [facility] [address] Performing Lab: [place] [facility] [place] [facility] [address] [facility] [address] FOLATE (WROX) 16.68 ng/mL >5.2 Jan 12, 2024 12:30 PM [facility] LIVER FUNCTION Specimen Type: SERUM No comment entered. Ordering Provider: Alex HUNTER Report Released Date/Time: Dec 21, 2023 12:51 PM Reporting Lab: [facility] [address] [facility] [address] Performing Lab: [address] [address] PROTEIN,TOTAL 6.1 g/dL 6.0-8.3 ALBUMIN 3.2 g/dL L 3.5-5.0 ALKALINE PHOSPHATASE 59 U/L 40-150 AST 13 U/L 5-34 ALT 15 U/L BILIRUBIN, TOTAL 0.4 mg/dL 0.2-1.2 Jan 12, 2024 12:30 PM [facility] CBC AND DIFF (AUTO) Specimen Type: BLOOD No comment entered. Ordering Provider: Alex HUNTER Report Released Date/Time: Dec 21, 2023 12:51 PM Reporting Lab: [address] [address] Performing Lab: [address] [address] WBC 4.45 10*3/uL L 4.50-11.00 RBC 4.96 [...] 10*3/uL 0.00-0.00 Jan 12, 2024 12:30 PM [place] [facility] MAGNESIUM Specimen Type: SERUM No comment entered. Ordering Provider: Alex HUNTER Report Released Date/Time: Dec 21, 2023 12:51 PM Reporting Lab: [facility] [address] [facility] [address] Performing Lab: [address] [address] MAGNESIUM 2.1 mg/dL 1.6-2.6 Vital Signs: All taken on the encounter date This section contains inpatient and outpatient Vital Signs collected on the date of the Encounter. Date/Time Temperature Pulse Blood Pressure Respiratory Rate SP02 Pain Height Weight Body Mass Index Source Jan 12, 2024 11:30 AM 97.6 64 130/78 16 98 0 [place] [facility] Social History: Smoking Status (Most current) and [...] 14, 2022 12:15 PM VA-TOBACCO NEVER USED [facility] AgencySA[facility]INITAN[facility] Tobacco Use History This section includes a history of the smoking, or tobacco-related health factors, that were collected on or before the date of the Encounter. The data comes from the [place] facility where the Encounter took place. Date/Time Smoking Status/Tobacco Use Comment F acility Jan 10, 2019 10:51 AM VA-TOBACCO NEVER USED [place] [facility]ITALTR[facility] AgencyUSENovogen[facility] Advance Directives: All historical and current [...] Encounter. Date/Time Encounter Note(s) Provider Source Jan 18, 2024 03:32 PM ADDENDUM: LOCAL TITLE: Addendum STANDARD TITLE: ADDENDUM DATE OF NOTE: JAN 18, 2024@15:32:48 ENTRY DATE: JAN 18, 2024@15:32:49 AUTHOR: FRANK VERDUZCO COSIGNER: URGENCY: STATUS: COMPLETED has never been seen by Podiatry and will need a consult placed. Please place consult. Thank you! /lalo/ FRANK TRAN Signed: 01/18/2024 15:33 Receipt Acknowledged By: 01/18/2024 15:52 /lalo/ KEAGAN MARINELLI RN, BSN [facility] DONOR SERVICES SPECIALIST for JODI JENKINSGABRIELE --- Original Document --- 01/12/24 [facility] RN PROGRESS NOTE: Nursing Progress Note [...] TWO CAPSULES EVERY EVENING TO SOFTEN STOOL 6) GLOVE NITRILE MED [...] ONCE DAILY FOR NUTRITIONAL SUPPLEMENTATION 11) NYSTATIN 882301 UNT/GM CREAM APPLY A THIN LAYER ACTIVE TOPICALLY TWICE DAILY 12) PANTOPRAZOLE NA 40MG EC TAB TAKE ONE TABLET BY MOUTH HOLD ONCE DAILY 13) UNDERPAD,BED 30IN X 36IN PLASTIC BACK USE 1 PAD ACTIVE TOPICALLY ONCE DAILY NEEDED FOR PERSONAL CARE 14) ZINC OXIDE 20% OINT APPLY THIN LAYER TOPICALLY ONCE ACTIVE DAILY NEEDED FOR SKIN IRRITATION Inactive Outpatient Medications Status 1) CARBOXYMETHYLCELLULOSE NA 0.5% OPH SOLN INSTILL 1 DROP INTO EACH EYE FOUR TIMES DAILY NEEDED FOR DRY EYE 15 Total Medications MEDICATION REVIEW Medication review completed [...] in patient's home at time of visit. [place] identified by: Full Name, Address, Facial Recognition Length of visit in home: 45 min Problem addressed for this visit: labs, ear irrigation, immunization, High BP and nail ?fungus Specimen(s) collected during this visit: BMP CBC Diff, Other: TSH, Vitamin B12, Folate Site: R ANTECUBITAL NURSING SUMMARY: Visit made to home for labs, ear irrigation, immunization, High BP and nail ?fungus. [place] sitting in recliner upon nurse arrival, SO Lakshmi and HAND I CUTTER present for visit. alert and oriented to self, pleasantly confuse. Nurse assessed ears as he was due to ear irrigation, ears clean with minimal cerumen. No irrigation performed this visit. with continuous heart monitor on at time of visit. Caregiver monitoring and documenting symptoms as will have monitor for 2 weeks. Per caregiver had an episode yesterday where he was off not engaging in activities and lethargic. [place] BP was noted to be elevated for the past few days in the 160 systolic and 90 diastolic. Nurse advised caregiver to document finding for correlation with heart monitor. Vet caregiver also calling proof sorter to report high blood pressure reading. Nurse reviewed s/s of hypertension and when to seek emergency care, caregiver voiced understanding. [facility] awaiting for bed to become available. Covid vaccine not administer this visit as caregiver refused r/t not feeling well. Will administer on next visit. with long, thick, and deformed nail. Will schedule podiatry appointment. No falls, NO ER visits and No hospitalizations Blood Pressure: 130/78 (01/12/2024 11:30) Pulse: 64 (01/12/2024 11:30) Respiration: 16 (01/12/2024 11:30) Temperature: 97.6 F [36.4 C] (01/12/2024 11:30) Pain Score: 0 (01/12/2024 11:30) EXAMINATION: Lungs: clear Edema: none HR: 64. No chest pain reported Bowel/Bladder: regular bowel and bladder. No s/s of UTI reported. Denied constipation Skin: dry and intact. Vet with red but blanchable area in buttocks. caregiver applying barrier cream and keeping area clean and dry. Home Safety FALLS NO INFECTIONS NO ER/HOSPITALIZATIONS NO Teaching/goals: See nursing summary above Patient verbalizes understanding to above and will call with any concerns or changes in condition. For emergent care call 911. Plan for next visit: Covid vaccine administration, follow up on BP. Schedule for 02/07 /FLORI Fallon veterinary attendant Signed: 01/15/2024 18:54 01/15/2024 ADDENDUM STATUS: COMPLETED [place] has long, thick, and deformed nail. Affecting his ability to wear shoes properly. Will you be able to facilitate scheduling podiatry appointment. /FLORI Fallon veterinary attendant Signed: 01/15/2024 18:57 Receipt Acknowledged By: 01/18/2024 15:33 /FRANK Smith [place] [facility] [place] [facility] Jan 15, 2024 06:55 PM ADDENDUM: LOCAL TITLE: Addendum STANDARD TITLE: ADDENDUM DATE OF NOTE: JAN 15, 2024@18:55:01 ENTRY DATE: JAN 15, 2024@18:55:02 AUTHOR: RAÚL SUTTON COSIGNER: URGENCY: STATUS: COMPLETED has long, thick, and deformed nail. Affecting his ability to wear shoes properly. Will you be able to facilitate scheduling podiatry appointment. /FLORI Fallon veterinary attendant Signed: 01/15/2024 18:57 Receipt Acknowledged By: 01/18/2024 15:33 /bettye TRAN --- Original Document --- 01/12/24 GI[facility] RN PROGRESS NOTE: Nursing Progress Note [...] TWO CAPSULES EVERY EVENING TO SOFTEN STOOL 6) GLOVE NITRILE MED [...] ONCE DAILY FOR NUTRITIONAL SUPPLEMENTATION 11) NYSTATIN 630224 UNT/GM CREAM APPLY A THIN LAYER ACTIVE TOPICALLY TWICE DAILY 12) PANTOPRAZOLE NA 40MG EC TAB TAKE ONE TABLET BY MOUTH HOLD ONCE DAILY 13) UNDERPAD,BED 30IN X 36IN PLASTIC BACK USE 1 PAD ACTIVE TOPICALLY ONCE DAILY NEEDED FOR PERSONAL CARE 14) ZINC OXIDE 20% OINT APPLY THIN LAYER TOPICALLY ONCE ACTIVE DAILY NEEDED FOR SKIN IRRITATION Inactive Outpatient Medications Status 1) CARBOXYMETHYLCELLULOSE NA 0.5% OPH SOLN INSTILL 1 DROP INTO EACH EYE FOUR TIMES DAILY NEEDED FOR DRY EYE 15 Total Medications MEDICATION REVIEW Medication review completed [...] in patient's home at time of visit. [place] identified by: Full Name, Address, Facial Recognition Length of visit in home: 45 min Problem addressed for this visit: labs, ear irrigation, immunization, High BP and nail ?fungus Specimen(s) collected during this visit: BMP CBC Diff, Other: TSH, Vitamin B12, Folate Site: R ANTECUBITAL NURSING SUMMARY: Visit made to home for labs, ear irrigation, immunization, High BP and nail ?fungus. sitting in recliner upon nurse arrival, SO Lakshmi and HAND I CUTTER present for visit. [place] alert and oriented to self, pleasantly confuse. Nurse assessed ears as he was due to ear irrigation, ears clean with minimal cerumen. No irrigation performed this visit. [place] with continuous heart monitor on at time of visit. Caregiver monitoring and documenting symptoms as will have monitor for 2 weeks. Per caregiver had an episode yesterday where he was off not engaging in activities and lethargic. [place] BP was noted to be elevated for the past few days in the 160 systolic and 90 diastolic. Nurse advised caregiver to document finding for correlation with heart monitor. Vet caregiver also calling proof sorter to report high blood pressure reading. Nurse reviewed s/s of hypertension and when to seek emergency care, caregiver voiced understanding. Caregiver [facility] and [facility] on [facility] list awaiting for bed to become available. Covid vaccine not administer this visit as caregiver refused r/t not feeling well. Will administer on next visit. with long, thick, and deformed nail. Will schedule podiatry appointment. No falls, NO ER visits and No hospitalizations Blood Pressure: 130/78 (01/12/2024 11:30) Pulse: 64 (01/12/2024 11:30) Respiration: 16 (01/12/2024 11:30) Temperature: 97.6 F [36.4 C] (01/12/2024 11:30) Pain Score: 0 (01/12/2024 11:30) EXAMINATION: Lungs: clear Edema: none HR: 64. No chest pain reported Bowel/Bladder: regular bowel and bladder. No s/s of UTI reported. Denied constipation Skin: dry and intact. Vet with red but blanchable area in buttocks. caregiver applying barrier cream and keeping area clean and dry. Home Safety FALLS NO INFECTIONS NO ER/HOSPITALIZATIONS NO Teaching/goals: See nursing summary above Patient verbalizes understanding to above and will call with any concerns or changes in condition. For emergent care call 911. Plan for next visit: Covid vaccine administration, follow up on BP. Schedule for 02/07 /lalo/ JODI SUTTON RN [facility] veterinary attendant Signed: 01/15/2024 18:54 01/18/2024 ADDENDUM STATUS: COMPLETED has never been seen by Podiatry and will need a consult placed. Please place consult. Thank you! /lalo/ FRANK Pastrana DAX CHELSEA Signed: 01/18/2024 15:33 Receipt Acknowledged By: * AWAITING SIGNATURE * JODI SUTTON [facility] [place] [facility] [place] [facility] Jan 12, 2024 11:30 AM [facility] NURSING NOTE: LOCAL TITLE: [facility] RN PROGRESS NOTE STANDARD TITLE: HB NURSING NOTE DATE OF NOTE: JAN 12, 2024@11:30 ENTRY DATE: JAN 15, 2024@18:33:44 AUTHOR: RAÚL SUTTON EXP COSIGNER: URGENCY: STATUS: [...] TWO CAPSULES EVERY EVENING TO SOFTEN STOOL 6) GLOVE NITRILE MED [...] ONCE DAILY FOR NUTRITIONAL SUPPLEMENTATION 11) NYSTATIN 997663 UNT/GM CREAM APPLY A THIN LAYER ACTIVE TOPICALLY TWICE DAILY 12) PANTOPRAZOLE NA 40MG EC TAB TAKE ONE TABLET BY MOUTH HOLD ONCE DAILY 13) UNDERPAD,BED 30IN X 36IN PLASTIC BACK USE 1 PAD ACTIVE TOPICALLY ONCE DAILY NEEDED FOR PERSONAL CARE 14) ZINC OXIDE 20% OINT APPLY THIN LAYER TOPICALLY ONCE ACTIVE DAILY NEEDED FOR SKIN IRRITATION Inactive Outpatient Medications Status 1) CARBOXYMETHYLCELLULOSE NA 0.5% OPH SOLN INSTILL 1 DROP INTO EACH EYE FOUR TIMES DAILY NEEDED FOR DRY EYE 15 Total Medications MEDICATION REVIEW Medication review completed [...] 45 min Problem addressed for this visit: labs, ear irrigation, immunization, High BP and nail ?fungus Specimen(s) collected during this visit: BMP CBC Diff, Other: TSH, Vitamin B12, Folate Site: R ANTECUBITAL NURSING SUMMARY: Visit made to home for labs, ear irrigation, immunization, High BP and nail ?fungus. sitting in recliner upon nurse arrival, SO Lakshmi and HAND I CUTTER present for visit. alert and oriented to self, pleasantly confuse. Nurse assessed ears as he was due to ear irrigation, ears clean with minimal cerumen. No irrigation performed this visit. with continuous heart monitor on at time of visit. Caregiver monitoring and documenting symptoms as will have monitor for 2 weeks. Per caregiver had an episode yesterday where he was off not engaging in activities and lethargic. [place] BP was noted to be elevated for the past few days in the 160 systolic and 90 diastolic. Nurse advised caregiver to document finding for correlation with heart monitor. Vet caregiver also calling proof sorter to report high blood pressure reading. Nurse reviewed s/s of hypertension and when to seek emergency care, caregiver voiced understanding. Caregiver [facility] and [facility] on [facility] list awaiting for bed to become available. Covid vaccine not administer this visit as caregiver refused r/t not feeling well. Will administer on next visit. [place] with long, thick, and deformed nail. Will schedule podiatry appointment. No falls, NO ER visits and No hospitalizations Blood Pressure: 130/78 (01/12/2024 11:30) Pulse: 64 (01/12/2024 11:30) Respiration: 16 (01/12/2024 11:30) Temperature: 97.6 F [36.4 C] (01/12/2024 11:30) Pain Score: 0 (01/12/2024 11:30) EXAMINATION: Lungs: clear Edema: none HR: 64. No chest pain reported Bowel/Bladder: regular bowel and bladder. No s/s of UTI reported. Denied constipation Skin: dry and intact. Vet with red but blanchable area in buttocks. caregiver applying barrier cream and keeping area clean and dry. Home Safety FALLS NO INFECTIONS NO ER/HOSPITALIZATIONS NO Teaching/goals: See nursing summary above Patient verbalizes understanding to above and will call with any concerns or changes in condition. For emergent care call 911. Plan for next visit: Covid vaccine administration, follow up on BP. Schedule for 02/07/ JODI SUTTON RN [facility] veterinary attendant Signed: 01/15/2024 18:54 01/15/2024 ADDENDUM STATUS: COMPLETED [place] has long, thick, and deformed nail. Affecting his ability to wear shoes properly. Will you be able to facilitate scheduling podiatry appointment. /lalo/ JODI SUTTON RN [facility] veterinary attendant Signed: 01/15/2024 18:57 Receipt Acknowledged By: 01/18/2024 15:33 /lalo/ FRANK TRAN 01/18/2024 ADDENDUM STATUS: COMPLETED [place] has never been seen by Podiatry and will need a consult placed. Please place consult. Thank you! /lalo/ FRANK TRAN Signed: 01/18/2024 15:33 Receipt Acknowledged By: 01/18/2024 15:52 /lalo/ KEAGAN MARINELLI RN, BSN [facility] DONOR SERVICES SPECIALIST for JODI SUTTON 01/18/2024 ADDENDUM STATUS: COMPLETED Podiatry consult on chart. Appt scheduled: 04/24/2024 15:00 CWM/NO/PODIATRY/NAIL /lalo/ KEAGAN MARINELLI RN, BSN [facility] DONOR SERVICES SPECIALIST Signed: 01/18/2024 15:53 CRISTOBAL SUTTON [place] [facility]
--- OUTSIDE RECORDS SUMMARY | 2024-03-07 06:47 | XMS_ITS ---
Author Name [place] Organization [place] Address [address] [place] [id number] Care Team Providers Care Ambulance Paramedic Name Role Phone RAMONA HUNTER Primary Care Provider Unav ailable LADI, FABI Unavailable Unavailable DON DIAZ Unavailable Unavailable CHAPUT, JOSHUA Unavailable Unavailable RAIVEL, KATIANA Unavailable Unavailable FEILEN, AAYKA Unavailable Unavailable ÁNGEL, SAUL Unavailable Unavailable HARINDER, [...] PART B Feb 27, 2017 PART B [id number] [phone] REJI,GUSTAVO NRY PATIENT MEDICARE (WNR) MEDICARE (M) PART B Feb 27, 2017 PART B [id number] ARONGUS,GUSTAVO NRY PATIENT MEDICARE (WNR) MEDICARE (M) PART A Feb 27, 2001 PART A [id number] ARONGUS,HE NRY PATIENT MEDICARE (WNR) MEDICARE (M) PART A Feb 27, 2001 PART A [id number] WILGUS,HE NRY PATIENT Selected Encounter This section includes the information on record at [place] for the Encounter. Date/Time Encounter Type Encounter Description Reason Provider Source Feb 12, 2024 12:42 PM Outpatient Encounter GERIATRIC EVALUATIONS ICD-10-CM G30.9 Alzheimer's disease, unspecified STEVE NARAYAN EA E Encounter Template Text not used by [place] Assessments - Encounter Diagnoses This section includes the primary and secondary diagnoses documented for the Encounter. Date/Time Primary/Secondary Diagnosis Diagnosis Name Provider Source Feb 16, 2024 11:51 AM PRIMARY Alzheimer's disease, unspecified MARIE CARLYLE KRISHNAN S [place] [facility] [place] [facility] Feb 16, 2024 11:51 AM SECONDARY Adjustment disorder with anxiety CAR[facility]LE [facility] [place] [facility] Feb 16, 2024 11:51 AM SECONDARY Dem in oth dis classd elswhr,unsp sev,w/o beh/psych/mood/an x CARLYLE NARAYAN S [facility] [place] [facility] Feb 16, 2024 11:51 AM SECONDARY White matter disease, unspecified CARLYLE NARAYAN A S [facility] [place] [facility] Plan of Treatment: Future Appointments (+ 6 months) and Future Tests (+/- 45 days) The Plan of Treatment section includes future care activities for the patient from [facility] [place] [facility]. This section includes future appointments and future orders which are active, pending or scheduled. Future Appointments This section includes appointments that were scheduled to occur 6 months from the date of the Encounter, up to a maximum of 20 appointments. The data comes from all [place] treatment [facility]. Appointment Date/Time Appointment Type Appointme nt Facility Name Apr 24, 2024 03:00 PM [facility] [place] [facility] May 15, 2024 01:30 PM [facility] Active, Pending, and Scheduled Orders This [...] data comes from all [place] treatment facilities. Test Date/Time Test Type Test Details Facility Name Jan 15, 2024 01:29 PM Consult Order PODIATRY/NHM OUTPT Cons Solderer Barrel Ribs's Choice [facility] Jan 19, 2024 12:00 AM Laboratory - Chemistry Order URINALYSIS CLEAN CATCH URINE SP [facility] Jan 19, 2024 12:00 AM Laboratory - Microbiology Order URINE CULTURE(MWROX) URINE CLEAN CATCH SP [facility] Social History: Smoking Status (Most [...] 14, 2022 12:15 PM VA-TOBACCO NEVER USED [facility] Tobacco Use History This section includes a history of the smoking, or tobacco-related health factors, that were collected on or before the date of the Encounter. The data comes from the [place] facility where the Encounter took place. Date/Time Smoking Status/Tobacco Use Comment F acility Jan 10, 2019 10:51 AM VA-TOBACCO NEVER USED [facility] Advance Directives: All historical and [...] Encounter. Date/Time Encounter Note(s) Provider Source Feb 12, 2024 12:42 PM CONSULT: LOCAL TITLE: CONSULT REPORT/E CONSULT STANDARD TITLE: CONSULT DATE OF NOTE: FEB 12, 2024@12:42 ENTRY DATE: FEB 12, 2024@12:42:43 AUTHOR: MICHEL NARAYAN EXP COSIGNER: URGENCY: STATUS: COMPLETED GERIATRICS eConsult Request: The purpose of this e-consult is to provide non-emergent geriatric expertise from one provider to another. It consists mainly of a chart review and a written response. No appointments will be scheduled with the patient. Nature of problem: 88 yo M w Alzheimer s disease who will [facility]. Significant other reports increase in anxiety as he does not wish to [facility] and admission to be rescheduled. Caregiver is asking for medication to treat anxiety and question best agent to initiate. END 88 yo patient with Alzheimer's dementia. 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 Other history includes afib on AC, htn, anemia, low thyroid, bph, spinal stenosis, and Hearing loss. Pt's dementia is significant. In April 2023 he had a [facility] memory test in which he scored 21. A score >10 is considered abnl and the maximum score is 28. Pt's caregiver is his girlfriend. She has also had responsibilities caring for her mother. For ADLS Pt is fully dependent with dressing and bathing, and he is additional dependent on all IADLS. Pt has [facility] for [facility] for quite some time as his CG felt it was time, although this was a difficult decision for her. The record notes his condition has declined and she also needs to attend to her mother. His RNCM has noted pt is only A&O to self on several occasions. On 02/05 his RNCM noted [facility], but that he was anxious re the change. On 02/06 the Caregiver told where he was going and he got anxious and noted I'm not going . The caregiver is asking for medication to treat anxiety. Medications & Allergies Reviewed. In brief: Meds: Apixaban, pantoprazole, docusate, eyedrops, debrox, mvi, skin protective/antifungal topicals, ensure Allergies: Latex, amiodarone (dizziness) A/P: 1. 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 Given his severity of dementia, would encourage her not to focus on his being placed in long-term care, rather try to redirect to the present moment.. we're going on an outing, we're driving in the car, visiting a nice place, etc. Consider reward on arrival (eg ice cream or favorite food). Encourage her to bring items from home that support 's comfort and familiarity. Have her plan for frequent visits on initial admission to support the transition. In addition if day of prn medication support is needed, could give low dose ativan (eg 1 mg) on date of intake. As some patients can have a paradoxical reaction to this could consider a test dose once, prior to intake day - if anxiety is more persistent/generalized, would recommend starting with an SSRI such as low dose sertraline, which is considred moderately effective [Yane et al, Am [facility] Physician, 2020]. Buspirone is an alternative for which there are case reports of benefit as well as a retrospective review in 179 pts showing 68% with some response and 42% with moderate to marked improvement [Niyah Logan, MR, [employer], 2017]. /lalo/ MICHEL Narayan MD Signed: 02/16/2024 11:51 Receipt Acknowledged By: 02/16/2024 13:30 /es/ JODI SUTTON RN [facility] spa host 02/19/2024 09:08 /es/ RAMONA HUNTER RN,MSN,[place] OPERATOR-C [facility] NURSE PRACTITIONER 02/16/2024 14:01 /es/ FABI BLEDSOE, [facility] Corporate Trust Officer MICHEL NARAYAN [facility]
--- OUTSIDE RECORDS SUMMARY | 2024-03-07 06:47 | XMS_ITS | Encounter Summary ---
Author Name Department [place] Organization [place] Address [address] [place] [id number] Care Team Providers Care Machine Filler Name Role Phone RAMONA HUNTER Primary Care [...] PART B Feb 27, 2017 PART B [id number] ARONGUS,GUSTAVO NRY PATIENT MEDICARE (WNR) MEDICARE (M) PART B Feb 27, 2017 PART B [id number] ARONGUS,GUSTAVO NRY PATIENT MEDICARE (WNR) MEDICARE (M) PART A Feb 27, 2001 PART A [id number] WILGUS,GUSTAVO NRY PATIENT MEDICARE (WNR) MEDICARE (M) PART A Feb 27, 2001 PART A [id number] [phone] WILGUS,HE NRY PATIENT Selected Encounter This section includes the information on record at [place] for the Encounter. Date/Time Encounter Type Encounter Description Reason Pro vider Source Sep 28, 2023 12:00 AM Outpatient Encounter COMMUNITY CARE CONSULT IHE Encounter Template Text not used by [place] Plan of Treatment: Future Appointments (+ 6 months) and Future Tests (+/- 45 days) The Plan of Treatment section includes future care activities for the patient from all [place] treatmentfacilities. This section includes future appointments and [...] REHAB MEDICIN E [place] [place] [facility] Oct 04, 2023 03:00 PM AMBULATORY - MEDICINE [facility] [place]L [place] [facility] Oct 04, 2023 03:30 PM AMBULATORY - MEDICINE [facility] [facility] Oct 04, 2023 04:15 PM AMBULATORY - MEDICINE PA C [place]L [place] [facility] Nov 28, 2023 08:00 AM AMBULATORY - MEDICINE [facility] [place] [place] [facility] Dec 08, 2023 08:00 AM AMBULATORY - MEDICINE [facility] Dec 08, 2023 03:00 PM AMBULATORY - REHAB MEDICIN E [place] [facility] [place] [facility] Jan 11, 2024 11:25 AM AMBULATORY - MEDICINE [facility] Social History: Smoking Status (Most [...] PM [place]-TOBACCO [facility]ED [facility] Tobacco Use History This section includes a history of the smoking, or tobacco-related health factors, that were collected on or before the date of the Encounter. The data comes from the [place] facility where the Encounter took place. Date/Time Smoking Status/Tobacco Use Comment F acility Jan 10, 2019 10:51 AM VA-TOBACCO NEVER USED [facility] Advance Directives: All historical and current [...] Encounter. Date/Time Encounter Note(s) Provider Source Sep 28, 2023 12:00 AM NONVA CONSULT: LOCAL TITLE: COMMUNITY CARE-CONSULT RESULT NOTE STANDARD TITLE: NONVA CONSULT DATE OF NOTE: SEP 28, 2023 ENTRY DATE: FEB 01, 2024@14:28:54 AUTHOR: LIZETT VALENZUELA EXP COSIGNER: URGENCY: STATUS: COMPLETED VistA Imaging - Scanned Document SCANNED DOCUMENT SIGNATURE NOT REQUIRED Electronically Filed: 02/01/2024 by: LIZETT ERICKSON [facility]
--- OUTSIDE RECORDS SUMMARY | 2024-03-07 06:47 | XMS_ITS ---
Author Name [place] Organization [place] Address [address] [place] [id number] Care Team Providers Care Employment Appeals Examiner Name Role Phone RAMONA HUNTER Primary Care [...] PART B Feb 27, 2017 PART B [id number] ARONGUS,GUSTAVO NRY PATIENT MEDICARE (WNR) MEDICARE (M) PART B Feb 27, 2017 PART B [id number] ARONGUS,GUSTAVO NRY PATIENT MEDICARE (WNR) MEDICARE (M) PART A Feb 27, 2001 PART A [id number] WILGUS,GUSTAVO NRY PATIENT MEDICARE (WNR) MEDICARE (M) PART A Feb 27, 2001 PART A [id number] WILGUS,HE NRY PATIENT Selected Encounter This section includes the information on record at [place] for the Encounter. Date/Time Encounter Type Encounter Description Reason Pro vider Source Nov 28, 2023 12:00 AM Outpatient Encounter COMMUNITY CARE CONSULT IHE Encounter Template Text not used by [place] Plan of Treatment: Future Appointments (+ 6 months) and Future Tests (+/- 45 days) The Plan of Treatment section includes future care activities for the patient from all [place] treatmentfacilities. This section includes future appointments and future orders which are active, pending or scheduled. Future Appointments This section includes appointments that were scheduled to occur 6 months from the date of the Encounter, up to a maximum of 20 appointments. The data comes from all [facility]. Appointment Date/Time Appointment Type Appointme nt Facility Name Dec 08, 2023 08:00 AM AMBULATORY - MEDICINE [facility] Dec 08, 2023 03:00 PM [facility]BULAT[facility] Jan 11, 2024 11:25 AM [facility]BULAT[facility] - [facility] Apr 24, 2024 03:00 PM AMBULATORY - MEDICINE [facility] [facility] May 15, 2024 01:30 PM AMBULATORY - [facility]IC[facility] Active, Pending, and Scheduled Orders This section includes a listing of several types of active, pending, and scheduled orders, including clinic medications orders, diagnostic test orders, procedure orders and consult orders; where the start date of the order is 45 days before the date of the Encounter or 45 days after the date of theEncounter. The data comes from all [facility]. Test Date/Time Test Type Test Details Facility Name Dec 21, 2023 12:00 AM Laboratory - Chemi stry Order BASIC METABOLIC PANEL (non-fasting) BLOOD (SST-SERUM) [facility] Social History: Smoking Status (Most current) [...] 14, 2022 12:15 PM VA-TOBACCO NEVER USED [facility] Tobacco Use History This section includes a [...] Encounter Note(s) Provider Source Nov 28, 2023 12:00 AM NONVA CONSULT: LOCAL TITLE: COMMUNITY CARE-CONSULT RESULT NOTE STANDARD TITLE: NONVA CONSULT DATE OF NOTE: NOV 28, 2023 ENTRY DATE: FEB 01, 2024@14:30:51 AUTHOR: LIZETT VALENZUELA EXP COSIGNER: URGENCY: STATUS: COMPLETED VistA Imaging - Scanned Document SCANNED DOCUMENT SIGNATURE NOT REQUIRED Electronically Filed: 02/01/2024 by: LIZETT ERICKSON [facility]
--- OUTSIDE RECORDS SUMMARY | 2024-03-07 06:47 | XMS_ITS | Encounter Summary ---
Author Name Department [place] Organization [place] Address [address] [place] [address] Care Team Providers Care Highway Engineering Teacher Name Role Phone RAMONA HUNTER Primary [...] PART B Feb 27, 2017 PART B [id number] ARONGUS,GUSTAVO NRY PATIENT MEDICARE (WNR) MEDICARE (M) PART B Feb 27, 2017 PART B [id number] ARONGUS,GUSTAVO NRY PATIENT MEDICARE (WNR) MEDICARE (M) PART A Feb 27, 2001 PART A [id number] WILGUS,GUSTAVO NRY PATIENT MEDICARE (WNR) MEDICARE (M) PART A Feb 27, 2001 PART A [id number] WILGUS,HE NRY PATIENT Selected Encounter This section includes the information on record at [place] for the Encounter. Date/Time Encounter Type Encounter Description Reason Pro vider Source June 28, 2023 12:00 AM Outpatient Encounter COMMUNITY CARE CONSULT IHE Encounter Template Text not used by [place] Plan of Treatment: Future Appointments (+ 6 months) and Future Tests (+/- 45 days) The Plan of Treatment section includes future care activities for the patient from all [place] treatmentfacilities. This section includes future appointments and future orders which are active, pending or scheduled. Future Appointments This section includes appointments that were scheduled to occur 6 months from the date of the Encounter, up to a maximum of 20 appointments. The data comes from all [place] treatment facilities. Appointment Date/Time Appointment Type Appointme nt Facility Name July 11, 2023 01:45 PM AMBULATORY - MEDICINE [facility] [place] [facility] Oct 04, 2023 02:00 PM AMBULAT[facility] Oct 04, 2023 03:00 PM AMBULATORY - MEDICINE [facility] [place] [facility] Oct 04, 2023 03:30 PM AMBULATORY - MEDICINE [facility] [place] [facility] Oct 04, 2023 04:15 PM AMBULATORY - MEDICINE [facility] [place] [facility] Nov 28, 2023 08:00 AM AMBULATORY - MEDICINE [facility] [place] [facility] Dec 08, 2023 08:00 AM AMBULATORY - MEDICINE [facility] Dec 08, 2023 03:00 PM AMBULATORY - REHAB MEDICIN E [facility] Social History: Smoking Status (Most current) and Tobacco Use (All prior to encounter date) This section includes the most current, and the historical, smoking and tobacco- related health factors from the [place] facility where the Encounter took place. Current Smoking Status This section includes the most current smoking, or tobacco-related health factor, from the [place] facility where the Encounter took place. Date/Time Current Smoking Status Phill varner Dec 14, 2022 12:15 PM VA-TOBACCO NEVER USED [facility] Tobacco Use History This section includes a history of the smoking, or tobacco-related health factors, that were collected on or before the date of the Encounter. The data comes from the [place] facility where the Encounter took place. Date/Time Smoking Status/Tobacco Use Comment F acility Jan 10, 2019 10:51 AM VA-TOBACCO NEVER USED [facility] Advance Directives: All historical and current Section Date Range: From patient's date of to the date document was created. This section includes ALL of a patient's completed or amended [place] Advance and Rescinded Directives. The entries below indicate that a directive exists for the patient, but an actual copy is not included with this document. The data comes from all [place] facilities. Date Advance Directives Provider Source Aug 14, 2020 ADVANCE DIRECTIVE CRISTOPHER BENITEZ Encounter Notes: All associated encounter notes This section contains the clinical notes associated to the Encounter. Date/Time Encounter Note(s) Provider Source June 28, 2023 12:00 AM NONVA CONSULT: LOCAL TITLE: COMMUNITY CARE-CONSULT RESULT NOTE STANDARD TITLE: NONVA CONSULT DATE OF NOTE: JUNE 28, 2023 ENTRY DATE: FEB 01, 2024@14:25:53 AUTHOR: LIZETT VALENZUELA EXP COSIGNER: URGENCY: STATUS: COMPLETED VistA Imaging - Scanned Document SCANNED DOCUMENT SIGNATURE NOT REQUIRED Electronically Filed: 02/01/2024 by: LIZETT ERICKSON [facility]
--- OUTSIDE RECORDS SUMMARY | 2024-03-07 06:47 | XMS_ITS ---
Author Name [place] Organization [place] Address [address] [place] [id number] Care Team Providers Care Denitrator Name Role Phone RAMONA HUNTER Primary Care [...] PART B Feb 27, 2017 PART B [id number] [phone] ARONGUS,GUSTAVO NRY PATIENT MEDICARE (WNR) MEDICARE (M) PART B Feb 27, 2017 PART B [id number] ARONGUS,GUSTAVO NRY PATIENT MEDICARE (WNR) MEDICARE (M) PART A Feb 27, 2001 PART A [id number] WILGUS,GUSTAVO NRY PATIENT MEDICARE (WNR) MEDICARE (M) PART A Feb 27, 2001 PART A [id number] WILGUS,HE NRY PATIENT Selected Encounter This section includes the information on record at [place] for the Encounter. Date/Time Encounter Type Encounter Description Reason Pro vider Source Oct 31, 2023 12:00 AM Outpatient Encounter COMMUNITY CARE CONSULT IHE Encounter Template Text not used by [place] Plan of Treatment: Future Appointments (+ 6 months) and Future Tests (+/- 45 days) The Plan of Treatment section includes future care activities for the patient from all [place] treatmentfacilities. This section includes future appointments and [...] 28, 2023 08:00 AM [facility] Dec 08, 2023 08:00 AM [facility]ULATORY - MEDICINE [facility] Dec 08, 2023 03:00 PM [facility] Jan 11, 2024 11:25 AM [facility] Apr 24, 2024 03:00 PM AMBULATORY - MEDICINE [facility] Social History: Smoking Status (Most [...] Frederick varner Dec 14, 2022 12:15 PM [place]-TO[place] NEVER USED [facility] Tobacco Use History This section includes a history of the smoking, or tobacco-related health factors, that were collected on or before the date of the Encounter. The data comes from the [place] facility where the Encounter took place. Date/Time Smoking Status/Tobacco Use Comment F accarlos Jan 10, 2019 10:51 AM [place]-TOBACCO NEVER USED [facility] Advance Directives: All historical and [...] Source Aug 14, 2020 ADVANCE DIRECTIVE CRISTOPHER BENITEZVIOLETYg Encounter Notes: All associated encounter notes This section contains the clinical notes associated to the Encounter. Date/Time Encounter Note(s) Provider Source Oct 31, 2023 12:00 AM NONVA CONSULT: LOCAL TITLE: COMMUNITY CARE-CONSULT RESULT NOTE STANDARD TITLE: NONVA CONSULT DATE OF NOTE: OCT 31, 2023 ENTRY DATE: FEB 01, 2024@14:24:39 AUTHOR: LIZETT VALENZUELA EXP COSIGNER: URGENCY: STATUS: COMPLETED VistA Imaging - Scanned Document SCANNED DOCUMENT SIGNATURE NOT REQUIRED Electronically Filed: 02/01/2024 by: LIZETT ERICKSON [place] CN[facility] [place] [facility]
--- OUTSIDE RECORDS SUMMARY | 2024-03-07 06:48 | XMS_ITS | Clinical Summary ---
Author Organization Unknown Care Team Providers Care Hostel Parent Name Role Phone GREGG KAIAKO KURA KAUPAPA MAORI, ESTEE Unavailable Unavailable RETA RN, CHANCE Unavailable Unavailable MURPHY PT, PEDRITO Unavailable Unavailable MARIO BOREMATIC OPERATOR, SANDRA Unavailable Unavailable DANIELA BOREMATIC OPERATOR, BRANDT Unavailable Unavail able KALETINA BOREMATIC OPERATOR, CARLOS Unavailable Unavailab le ELLIS BOREMATIC OPERATOR, JUAN JOSE Unavailable Unavailable MELITA RUBY, SHELLEY Unavailable Unavailable Payers Payer Name Policy Type Policy Number Effective Date Expira tion Date [facility] OPTUM PROGRAM-PDGM [id number] MEDICARE - [place] - PDGM [id number] Problems Condition Name Condition Details Condition Category Status Onset Date Resolution Date Last Treatment Date Treating Clinician Comments ESSENTIAL (PRIMARY) HYPERTENSION Active 05-02 00:00: 00 UNSP DEMENTIA, UNSP SEVERITY, WITHOUT BEH/PSYCH/MO OD/ANX Active 05-02 00:00: 00 SPINAL STENOSIS, SITE UNSPECIFIED Active 05-02 00:00: 00 UNSPECIFIED OSTEOARTHRIT IS, UNSPECIFIED SITE Active 05-02 00:00: 00 UNSPECIFIED HEARING LOSS, UNSPECIFIED EAR Active 05-02 00:00: 00 Allergies, Adverse Reactions, Alerts Allergy Name Allergy Type Status Severity Reaction(s) Onset Date Inactive Date Treating Clinician Comments NKA Propensity to adverse reactions Active 2022-04 09:48:1 6 Medications Ordered Medication Name Filled Medication Name Start Date Stop Date Current Medication? Ordering Clinician Indication Dosage Frequency Signature (SIG) Comments Components Miralax 17 gram/dose oral powder 05-02 00:00: 00 05-27 23:59 :00 No [id number] Per instruc tions DAILY Per instructio ns DAILY (route: oral) Med Classific ation: Gastroint estinal Therapy Agents Multivitami n 50 Plus tablet 05-02 00:00: 00 05-27 23:59 :00 No [id number] 2 tablet DAILY 2 tablet DAILY (route: oral) Med Classific ation: Electroly te Balance-N utritiona l Products Prilosec OTC 20 mg tablet,nette yed release 05-02 00:00: 00 05-27 23:59 :00 No [id number] 1 tablet 2 TIMES DAILY 1 tablet 2 TIMES DAILY (route: oral) Med Classific ation: Gastroint estinal Therapy Agents Reglan 10 mg tablet 05-02 00:00: 00 05-27 23:59 :00 No [id number] 1 tablet 3 TIMES DAILY 1 tablet 3 TIMES DAILY (route: oral) Med Classific ation: Gastroint estinal Therapy Agents Tylenol Extra Strength 500 mg tablet 05-02 00:00: 00 05-27 23:59 :00 No [id number] 2 tablet 4 TIMES DAILY 2 tablet 4 TIMES DAILY (route: oral) Med Classific ation: Analgesic , Anti-infl ammatory or Antipyret ic Vital Signs Vital Name Observation Time Observation Value Commen ts Temperature 2022-07-29 10:35:00.000 97.7 [degF] Temperature 2022-07-22 10:25:00.000 97.4 [degF] Temperature 2022-07-14 09:34:00.000 97.1 [degF] Temperature 2022-07-08 11:09:00.000 97.3 [degF] Pulse 2022-07-29 10:35:00.000 61 /min Pulse 2022-07-22 10:25:00.000 66 /min Pulse 2022-07-14 09:34:00.000 60 /min Pulse 2022-07-08 11:09:00.000 76 /min O2 Saturation (%) 2022-07-29 10:35:00.000 99 % O2 Saturation (%) 2022-07-22 10:25:00.000 98 % O2 Saturation (%) 2022-07-14 09:34:00.000 100 % O2 Saturation (%) 2022-07-08 11:09:00.000 100 % Respirations 2022-07-29 10:35:00.000 18 /min Respirations 2022-07-22 10:25:00.000 18 /min Respirations 2022-07-14 09:34:00.000 18 /min Respirations 2022-07-08 11:09:00.000 18 /min Weight (lbs) 2022-07-29 10:35:00.000 183 [lb_av] Systolic Blood Pressure 2022-07-29 10:35:00.000 124 mm [Hg] Systolic Blood Pressure 2022-07-22 10:25:00.000 128 mm [Hg] Systolic Blood Pressure 2022-07-14 09:34:00.000 120 mm [Hg] Systolic Blood Pressure 2022-07-08 11:09:00.000 110 mm [Hg] Diastolic Blood Pressure 2022-07-29 10:35:00.000 64 mm [Hg] Diastolic Blood Pressure 2022-07-22 10:25:00.000 70 mm [Hg] Diastolic Blood Pressure 2022-07-14 09:34:00.000 78 mm [Hg] Diastolic Blood Pressure 2022-07-08 11:09:00.000 60 mm [Hg] Plan of Treatment Planned Activity Planned Date Details Comments Future Scheduled Test SKILLED NU RSE TO EVALUATE PATIENT, IDENTIFY PRIMARY AND CO-MORBID CONDITIONS CODED PER CODING GUIDELINES, AND DEVELOP PATIENT SPECIFIC PLAN OF CARE THAT INCLUDES PATIENT GOAL FOR HOME HEALTH. [code = SKILLED NURSE TO EVALUATE PATIENT, IDENTIFY PRIMARY AND CO-MORBID CONDITIONS CODED PER CODING GUIDELINES, AND DEVELOP PATIENT SPECIFIC PLAN OF CARE THAT INCLUDES PATIENT GOAL FOR HOME HEALTH.] Future Scheduled Test SKILLED NU RSE TO REVIEW PATIENT MEDICATIONS. INSTRUCT PATIENT/CAREGIVER ON MONITORING OF EFFECTIVENESS, ADVERSE DRUG REACTIONS, SIDE EFFECTS OF ALL MEDICATIONS (PRESCRIPTION/-OTC), AND HOW AND WHEN TO REPORT PROBLEMS. [code = SKILLED NURSE TO REVIEW PATIENT MEDICATIONS. INSTRUCT PATIENT/CAREGIVER ON MONITORING OF EFFECTIVENESS, ADVERSE DRUG REACTIONS, SIDE EFFECTS OF ALL MEDICATIONS (PRESCRIPTION/-OTC), AND HOW AND WHEN TO REPORT PROBLEMS.] Future Scheduled Test SKILLED NU RSE TO PERFORM HOME SAFETY AND FALL ASSESSMENT AND PROVIDE INSTRUCTION TO IMPLEMENT HOME SAFETY AND FALL PREVENTION STRATEGIES. [code = SKILLED NURSE TO PERFORM HOME SAFETY AND FALL ASSESSMENT AND PROVIDE INSTRUCTION TO IMPLEMENT HOME SAFETY AND FALL PREVENTION STRATEGIES.] Future Scheduled Test PATIENT DOVER S A RISK OF HOSPITALIZATION AND ED USE. SKILLED NURSE TO ESTABLISH SUPPORT MEASURES TO MINIMIZE RISK OF HOSPITALIZATION AND ED USE, AND INSTRUCT PATIENT/CAREGIVER ON METHODS TO REDUCE AVOIDABLE HOSPITALIZATION AND ED USE. [code = PATIENT HAS A RISK OF HOSPITALIZATION AND ED USE. SKILLED NURSE TO ESTABLISH SUPPORT MEASURES TO MINIMIZE RISK OF HOSPITALIZATION AND ED USE, AND INSTRUCT PATIENT/CAREGIVER ON METHODS TO REDUCE AVOIDABLE HOSPITALIZATION AND ED USE.] Future Scheduled Test SKILLED NU RSE TO PROVIDE INSTRUCTION TO PATIENT/CAREGIVER RELATED TO DISCHARGE PLANNING. [code = SKILLED NURSE TO PROVIDE INSTRUCTION TO PATIENT/CAREGIVER RELATED TO DISCHARGE PLANNING.] Future Scheduled Test SKILLED NU RSE FOR OBSERVATION AND ASSESSMENT OF PATIENTS PAIN LEVEL AND EFFECTIVENESS OF PAIN MANAGEMENT REGIMEN. SKILLED NURSE TO INSTRUCT PATIENT/CAREGIVER REGARDING PHARMACOLOGIC AND NON-PHARMACOLOGIC PAIN CONTROL MEASURES. SKILLED NURSE TO REPORT TO PHYSICIAN IF PAIN IS UNCONTROLLED WITH CURRENT PAIN MANAGEMENT REGIMEN. [code = SKILLED NURSE FOR OBSERVATION AND ASSESSMENT OF PATIENTS PAIN LEVEL AND EFFECTIVENESS OF PAIN MANAGEMENT REGIMEN. SKILLED NURSE TO INSTRUCT PATIENT/CAREGIVER REGARDING PHARMACOLOGIC AND NON-PHARMACOLOGIC PAIN CONTROL MEASURES. SKILLED NURSE TO REPORT TO PHYSICIAN IF PAIN IS UNCONTROLLED WITH CURRENT PAIN MANAGEMENT REGIMEN.] Future Scheduled Test SKILLED NU RSE TO ASSESS PATIENT'S SKIN INTEGRITY AND INSTRUCT PATIENT/CAREGIVER ON MEASURES TO PREVENT PRESSURE ULCERS [code = SKILLED NURSE TO ASSESS PATIENT'S SKIN INTEGRITY AND INSTRUCT PATIENT/CAREGIVER ON MEASURES TO PREVENT PRESSURE ULCERS] Future Scheduled Test SKILLED NU RSE TO PROVIDE TEACHING ON SIGNS AND SYMPTOMS AND MANAGEMENT OF HYPERTENSION. [code = SKILLED NURSE TO PROVIDE TEACHING ON SIGNS AND SYMPTOMS AND MANAGEMENT OF HYPERTENSION.] Future Scheduled Test SKILLED NU RSE FOR OBSERVATION AND ASSESSMENT TO IDENTIFY CHANGES ASSOCIATED WITH DEMENTIA AND TEACHING RELATED TO SAFETY MEASURES TO PREVENT INJURY, ELOPEMENT RISKS, BEHAVIOR CHANGES, ACTIVITIES, AND ENVIRONMENTAL CHANGES ALL SECONDARY TO IMPAIRED COGNITIVE STATUS. [code = SKILLED NURSE FOR OBSERVATION AND ASSESSMENT TO IDENTIFY CHANGES ASSOCIATED WITH DEMENTIA AND TEACHING RELATED TO SAFETY MEASURES TO PREVENT INJURY, ELOPEMENT RISKS, BEHAVIOR CHANGES, ACTIVITIES, AND ENVIRONMENTAL CHANGES ALL SECONDARY TO IMPAIRED COGNITIVE STATUS. ] Future Scheduled Test SKILLED NU RSE FOR O/A AND SKILLED TEACHING RELATED TO SIGNS AND SYMPTOMS AND MANAGEMENT OF SPINAL STENOSIS, OA. [code = SKILLED NURSE FOR O/A AND SKILLED TEACHING RELATED TO SIGNS AND SYMPTOMS AND MANAGEMENT OF SPINAL STENOSIS, OA. ] Goal 2022-06-30 Patient Goal - OUT[facility]IDE [facility] Goal 2022-07-29 Patient Goal - OUTSIDE [facility] Goal Provider Goal - A PLAN OF CARE WILL BE ESTABLISHED THAT MEETS PATIENT'S NURSING HOME NEEDS AND INCLUDES PATIENT GOAL FOR HOME HEALTH. Goal Provider Goal - PATIENT/CAREGIVER WILL VERBALIZE UNDERSTANDING OF EDUCATION PROVIDED ON MEDICATIONS BY THE END OF THE CERTIFICATION PERIOD. Goal Provider Goal - PATIENT/CAREGIVER WILL VERBALIZE/DEMONSTRATE EFFECTIVE HOME SAFETY AND FALL PREVENTION STRATEGIES THROUGHOUT CERTIFICATION PERIOD. Goal Provider Goal - PATIENT WILL HAVE SUPPORT MEASURES ESTABLISHED TO PREVENT HOSPITALIZATION AND ED USE AND PATIENT/CAREGIVER WILL VERBALIZE/DEMONSTRATE METHODS TO REDUCE AVOIDABLE HOSPITALIZATION AND ED USE BY END OF EPISODE. Goal Provider Goal - PATIENT/CAREGIVER WILL VERBALIZE UNDERSTANDING OF DISCHARGE PLANNING INSTRUCTIONS BY DATE OF DISCHARGE. Goal Provider Goal - PATIENT/CAREGIVER WILL DEMONSTRATE UNDERSTANDING OF PHARMACOLOGIC AND NONPHARMACOLOGIC PAIN CONTROL MEASURES AND PATIENT WILL HAVE IMPROVEMENT IN PAIN INTERFERING WITH ACTIVITY EVIDENCED BY PAIN CONTROLLED AT LEVEL OF SPECIFY PATIENT GOAL ON 7 OR LESS BY END OF CERTIFICATION PERIOD. Goal Provider Goal - PATIENT/CAREGIVER WILL VERBALIZE UNDERSTANDING OF PRESSURE ULCER PREVENTION BY END OF THE EPISODE. Goal Provider Goal - PATIENT/CAREGIVER WILL VERBALIZE SIGNS AND SYMPTOMS OF HYPERTENSION AND WILL BE ABLE TO DEMONSTRATE ABILITY TO MANAGE EXACERBATION BY END OF THE EPISODE. Goal Provider Goal - PATIENT/CAREGIVER WILL VERBALIZE /DEMONSTRATE APPROPRIATE ENVIRONMENTAL/SAFETY MODIFICATIONS IN RESPONSE TO BEHAVIOR/COGNITIVE CHANGES ASSOCIATED WITH DEMENTIA DIAGNOSIS THROUGHOUT THE CERTIFICATION PERIOD. Goal Provider Goal - PATIENT/CAREGIVER WILL VERBALIZE UNDERSTANDING OF MUSCULOSKELETAL DISEASE INCLUDING SIGNS AND SYMPTOMS, MANAGEMENT, AND PRESCRIBED TREATMENT REGIMEN BY END OF EPISODE. Reason for Visit INDEPENDENT WITH USE OF ASSISTIVE DEVICE Encounters Start Date/Time End Date/Time Encounter Type Admission Type Attending [facility] Care Department Encounter ID Discharge Date Discharge Status Discharge Condition Discharge Reason Percent Goals Met 2022-05-02 00:00:00 2022-07-29 00:00:00 Outpatient RECERTIFIC ATION [facility] [id number] 1014-06-02 00:00:00 DISCHARGE TO HOME OR SELF CARE INDEPENDEN T WITH USE OF ASSISTIVE DEVICE GOALS MET ( ONLY) 43.75
--- OUTSIDE RECORDS SUMMARY | 2024-03-07 06:48 | XMS_ITS | Encounter Summary ---
Author Name [facility] Organization [facility] [place] Address [address] [place] [id number] Care Team Providers Care Rn Complex Care Name Role Phone RAMONA HUNTER Primary Care [...] PART B Feb 27, 2017 PART B [id number] [phone] ARONGUS,GUSTAVO NRY PATIENT MEDICARE (WNR) MEDICARE (M) PART B Feb 27, 2017 PART B [id number] [phone] ARONGUS,GUSTAVO NRY PATIENT MEDICARE (WNR) MEDICARE (M) PART A Feb 27, 2001 PART A [id number] ARONGUS,GUSTAVO NRY PATIENT MEDICARE (WNR) MEDICARE (M) PART A Feb 27, 2001 PART A [id number] [phone] WILGUS,HE NRY PATIENT Selected Encounter This section includes the information on record at [place] for the Encounter. Date/Time Encounter Type Encounter Description Reason Provider Source Feb 19, 2024 09:08 AM Outpatient Encounter TELEPHONE [facility] ICD-10-CM G30.9 Alzheimer's disease, unspecified VANDANA HUNTERTHIA Yg Encounter Template Text not used by [place] Assessments - Encounter Diagnoses This section includes the primary and secondary diagnoses documented for the Encounter. Date/Time Primary/Secondary Diagnosis Diagnosis Name Provider Source Feb 19, 2024 09:08 AM PRIMARY Alzheimer's disease, unspecified Alex [facility] Feb 19, 2024 09:08 AM SECONDARY Dem in oth dis classd elswhr,unsp sev,w/o beh/psych/mood/an x [facility] Plan of Treatment: Future Appointments (+ 6 months) and Future Tests (+/- 45 days) The Plan of Treatment section includes future care activities for the [facility] [place] [facility]. This section includes future appointments and future orders which are active, pending or scheduled. Future Appointments This section includes appointments that were scheduled to occur 6 months from the date of the Encounter, up to a maximum of 20 appointments. The data comes from all [facility]. Appointment Date/Time Appointment Type Appointme nt Facility Name Apr 24, 2024 03:00 PM AMBULATORY - MEDICINE [facility] May 15, 2024 01:30 PM AMBULATORY - MEDICINE [facility] Active, Pending, and Scheduled Orders This section includes a listing of several types of active, pending, and scheduled orders, including clinic medications orders, diagnostic test orders, procedure orders and consult orders; where the start date of the order is 45 days before the date of the Encounter or 45 days after the date of theEncounter. The data comes from all [place] treatment [facility]. Test Date/Time Test Type Test Details Facility Name Jan 15, 2024 01:29 PM Consult Order PODIATRY/NHM OUTPT Cons It Business Process Architect's Choice [facility] Jan 19, 2024 12:00 AM Laboratory - Chemistry Order URINALYSIS CLEAN CATCH [facility] [place] [facility] Jan 19, 2024 12:00 AM Laboratory - Microbiology Order URINE CULTURE(MWROX) URINE CLEAN CATCH SP [facility] [place] [facility] Social [...] 14, 2022 12:15 PM VA-TOBACCO [facility] [place] [facility] Tobacco Use History This section includes a history of the smoking, or tobacco-related health factors, that were collected on or before the date of the Encounter. The data comes from the [place] facility where the Encounter took place. Date/Time Smoking Status/Tobacco Use Comment F acility Jan 10, 2019 10:51 AM VA-TOBACCO [facility] Advance Directives: All historical and [...] Encounter Note(s) Provider Source Feb 19, 2024 09:08 AM HB NOTE: LOCAL TITLE: [facility] TELEPHONE NOTE STANDARD TITLE: [facility] NOTE DATE OF NOTE: FEB 19, 2024@09:08 ENTRY DATE: FEB 19, 2024@09:08:25 AUTHOR: KERI HUNTER COSIGNER: URGENCY: STATUS: COMPLETED S:Called DILIA MENDOZA PHONE NUMBER [CELLULAR] - PATIENT PHONE - [phone] TelePhone visit to f/u anxiety [facility] 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 Have her plan for [...] such as low dose sertraline, which is considered moderately effective [Yane jimenez al, Am [facility] Physician, 2020]. Buspirone is an alternative for which there are case reports of benefit as well as a retrospective review in 179 pts showing 68% with some response and 42% with moderate to marked improvement [Niyah Logan, MR, [employer], 2017]. A/P: >anixety in demenita:NANY Martins reports 2 friends who are veerans will also be accompaning him. Concern for separation anxiety. Lorezapam 0.5mg given and may repeat. Advsied to trail prior to know if has an SE. Verbailizes understanding. f/u PRN Time spent: 11 min Upcoming Appointments: 04/24/2024 15:00 CWM/NO/PODIATRY/NAIL 05/15/2024 13:30 CWM/NO/OTOLARYNGOLOGY (x)medications -patient reports taking as prescribed No [...] documented in this note. /lalo/ RAMONA HUNTER RN,MSN,[employer] INSTALLER-C [facility] NURSE PRACTITIONER Signed: 02/19/2024 14:55 KERI HUNTER [facility]
[2024-03-07 06:49] LABS: White Blood Count 5.1 X10*3/uL (4.8-10.8)
[2024-03-07 06:50] LABS: Basophils Absolute Auto 0.1 X10*3/uL (0.0-0.2); Basophils Percent Auto 1.4 % (0-2); Eosinophils Absolute Auto 0.3 X10*3/uL (0.0-0.4); Eosinophils Percent Auto 6.5 % (0-4); Hematocrit 37.8 % (42.0-52.0); Hemoglobin 12.8 g/dl (14.0-18.0); Imm Gran Abs Auto 0.01 X10*3/uL (0.00-0.03); Imm Gran Pct Auto 0.2 % (0.0-0.4); Lymphocytes Absolute Auto 1.4 X10*3/uL (1.2-4.9); Mean Corpuscular HGB Conc 33.9 g/dl (31.0-36.0); Mean Corpuscular Hemoglobin 30.3 pg (27.0-33.0); Mean Corpuscular Volume 89.4 fL (80.0-98.0); Mean Platelet Volume 9.9 fL (9.4-12.4); Monocytes Absolute Auto 0.6 X10*3/uL (0.1-1.2); Monocytes Percent Auto 11.7 % (2-11); Neutrophils Absolute Auto 2.7 x10*3/uL (2.0-8.3); Neutrophils Percent Auto 53.2 % (45-73); Platelet Count 191 X10*3/uL (160-400); Red Blood Count 4.23 X10*6/uL (4.60-5.80); Red Cell Distribution Width 13.7 % (11.0-16.0)
[2024-03-07 07:00] LABS: Estimated Average Glucose 111 mg/dL; Hemoglobin A1C 122.9875 umol/L; Hemoglobin A1c % 5.5 % (<6.0); Total Hemoglobin (HGBA1C) 3331.4799 umol/L
[2024-03-07 07:19] LABS: Alanine Aminotransferase 8 U/L (0-40); Albumin Level 2.9 g/dL (3.5-5.0); Alkaline Phosphatase 56 U/L (39-117); Anion Gap 10 (12-20); Aspartate Amino Transferase 14 U/L (5-37); Bilirubin Total 0.2 mg/dL (0.0-1.0); Blood Urea Nitrogen 12 mg/dL (9-16); Carbon Dioxide 24 mmol/L (22-29); Chloride 110 mmol/L (96-108); Cholesterol 141 mg/dL (<200); Estimated Glomerular Filt Rate > 60; Glucose Fasting 92 mg/dL (60-99); HDL Cholesterol 35 mg/dL (>40); LDL Cholesterol Calculated 86 mg/dL (<100); Potassium 3.9 mmol/L (3.3-5.1); Sodium 140 mmol/L (135-145); Total Protein 5.7 g/dL (6.5-8.0); Triglycerides 102 mg/dL (<150)
[2024-03-07 07:33] LABS: Vitamin D 25-OH Total 27.8 ng/mL (>30)
[2024-03-07 07:36] LABS: Vitamin B12 531 pg/mL (200-900)
[2024-03-07 16:49] LABS: Appearance Urine Clear; Color Urine Yellow; Glucose Urine UA Negative (Negative); Leukocyte Esterase Urine Negative (Negative); Nitrite Urine Negative (Negative); Urine Blood Negative (Negative); Urine Ketones Negative (Negative); Urine Protein Negative (Neg-Trace)
[2024-03-09 20:33] LABS: TS Negative Control Passed; TS Panel A 0; TS Panel B 0; TS Positive Control Passed; TSpotTB Negative (Negative)
== END 2024-03-07 06:35 | disposition home or self-care (01) ==
LOC: HO.HSH3E 06:34
PROVIDERS: Visit Provider Nurse Practitioner Acute Care
DX: F03.90 Unspecified dementia, unspecified severity, without behavioral disturbance, psychotic disturbance, mood disturbance, and anxiety (principal); Z13.1 Encounter for screening for diabetes mellitus
CPT/HCPCS: 36415; 80053; 80061; 81003; 82306; 82607; 83036; 84443; 85025; 86481

== ENCOUNTER 2024-03-21 06:14 | Outpatient (REF) | payer MEDICARE, SELFPAY ==
[2024-03-21 07:00] LABS: Digoxin < 0.2 ng/mL (0.8-2.0)
== END 2024-03-21 06:15 | disposition home or self-care (01) ==
LOC: HO.HSH3N 06:14
PROVIDERS: Visit Provider Nurse Practitioner Acute Care
DX: I48.91 Unspecified atrial fibrillation (principal)
CPT/HCPCS: 36415; 80162

== ENCOUNTER 2024-08-29 06:14 | Outpatient (REF) | payer MEDICARE, SELFPAY ==
[2024-08-29 07:00] LABS: Anion Gap 11 (12-20); Blood Urea Nitrogen 22 mg/dL (9-16); Calcium 8.4 mg/dL (8.4-10.2); Carbon Dioxide 26 mmol/L (22-29); Chloride 104 mmol/L (96-108); Estimated Glomerular Filt Rate 51; Potassium 4.1 mmol/L (3.3-5.1); Sodium 137 mmol/L (135-145)
== END 2024-08-29 06:15 | disposition home or self-care (01) ==
LOC: HO.HSH3N 06:14
PROVIDERS: Visit Provider Nurse Practitioner Acute Care
DX: I10 Essential (primary) hypertension (principal)
CPT/HCPCS: 36415; 80048